=== PATIENT | female | born 1945 | race African-American/Black ===

== ENCOUNTER 2019-10-10 05:32 | Inpatient (IN) | payer MEDICARE, MEDICAID ==
[~2019-10-10] VITALS: Ht 160 cm; Wt 146.5 kg
[2019-10-10] MEDS ORDERED: Acetaminophen 650 MG SUPP RECTAL ONE (05:45)
--- NOTE | 2019-10-10 05:49 | Emergency Room Report ---
History of Present Illness General Chief Complaint: Fever Source: Medical Record, EMS (Dylon Drake MD) Present Illness HPI This is a 74-year-old female who is morbidly obese with history of UTI, atrial fibrillation on Coumadin who presents with chief plaint of fever and altered mental status. Onset for couple of days. Normally she is alert oriented x3 able to take care of herself per EMS, nursing staff that she is very lethargic and not responsive. Also with a fever. No nausea vomiting or diarrhea. Nothing made it better. Nothing made it worse. Unable to get any history from patient because of her condition. 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 (Dylon Drake MD) Patient History Past Medical History: see triage record, old chart reviewed Past Surgical History: other Pertinent Family History: none Social History: Denies: smoking Now: No Immunizations: UTD Reviewed Nursing Documentation: PMH: Agreed; PSxH: Agreed (Dylon Drake MD) Nursing Documentation-PMH Hx Hypertension: Yes Hx Diabetes: Yes (Dylon Drake MD) Review of Systems Constitutional: Reports: fever, malaise, weakness All Other Systems: limited - Secondary to condition (Dylon Drake MD) Physical Exam Vital Signs Date Time Temp Pulse Resp B/P (MAP) Pulse Ox O2 Delivery O2 Flow Rate FiO2 10/10/19 05:31 100.4 90 18 120/91 (101) 96 Room Air Vitals with fever Sp02 EP Interpretation: reviewed, normal General Appearance: moderate distress, lethargic, obese Head: normocephalic, atraumatic Eyes: bilateral eye PERRL, bilateral eye EOMI ENT: hearing grossly normal, normal pharynx Neck: full range of motion, supple, no meningismus Respiratory: chest non-tender, lungs clear, normal breath sounds Cardiovascular #1: regular rate, rhythm, no murmur Gastrointestinal: normal bowel sounds, non tender, no mass, no organomegaly, no bruit, non-distended Musculoskeletal: back normal, normal range of motion Psychiatric: other Skin: no rash (Dylon Drake MD) Medical Decision Making Diagnostic Impression: Primary Impression: Sepsis Additional Impressions: Acute metabolic encephalopathy Suspected 2019 novel coronavirus infection Leukocytosis Pyelonephritis Anemia Coagulopathy Atrial fibrillation with rapid ventricular response Renal failure NSTEMI (non-ST elevated myocardial infarction) Lactic acidosis ER Course Patient presents with fever and altered mental status. According to nursing staff, she had a negative cover test in August. Because she is a care home patient suspect to have covered infection. She can also have other infection. Labs, EKG, x-rays pending. I will sign this patient out to the oncoming doctor for for final disposition and admission. (Dylon Drake MD) ER Course This patient was turned over to me by Dr. Drake. Please see his initial history and physical. Briefly, this is an morbidly obese female that resides in a long-term facility with multiple chronic medical problems to include recurrent urinary tract infections/sepsis, diabetes, atrial fibrillation, coronary artery disease and congestive heart failure, hypothyroidism and rheumatoid arthritis, coagulopathy and on Coumadin. The patient had presented with altered mental status and fever. While obtaining a catheterized urinalysis it was identified that the patient's urine appeared consistent with infection. Patient was given broad-spectrum antibiotics and IV fluids. The IV fluids were given gently for concern of known history of congestive heart failure and also the patient presenting during the COVID-19 pandemic and the current thought that aggressive IV fluid resuscitation could rapidly worsen in the setting of COVID 19 infection. The patient long-term facility that she presents from has had an outbreak. COVID-19 testing is pending at this time. The patient did have atrial fibrillation with a rapid ventricular response, however, the patient's rate was variable and given the fever and sepsis, I felt that this was appropriate response and therefore I did not treat the atrial fibrillation and rather gave this patient fluids, acetaminophen and broad-spectrum antibiotics to treat the underlying etiology for the RVR. Also, I did not want to drop this patient's blood pressure. The patient's oxygen saturation remained normal during her ED course. Blood pressure also remained stable. The patient's troponin was significantly elevated. This could be a demand ischemia versus NSTEMI versus secondary to renal failure. Regardless, the patient is on Coumadin and is anticoagulated, so I did not add aspirin in the emergency department and I will allow cardiology to manage this patient. The patient will be admitted to the ICU stepdown. This patient is critically ill. This patient required complex medical decision- making, aggressive intervention, extensive laboratory workup and monitoring. Critical care time: 40 minutes. This patient was evaluated in the context of the global COVID-19 pandemic, which necessitated consideration that the patient might be at risk for infection with the [id number] virus that causes COVID-19. Institutional protocols and algorithms that pertain to the evaluation of patients at risk for COVID-19 and the state of rapid change based on information released by multiple regulatory bodies including the CDC and federal and state organizations. These policies and algorithms were followed during the patient' s care in the ED. Laboratory Tests Test 10/10/19 05:50 10/10/19 06:05 10/10/19 07:40 White Blood Count 23.0 K/UL (4.8-10.8) *H Red Blood Count 3.84 M/UL (4.20-5.40) L Hemoglobin 10.5 G/DL (12.0-16.0) L Hematocrit 31.4 % (37.0-47.0) L Mean Corpuscular Volume 82 FL (80-99) Mean Corpuscular Hemoglobin 27.4 PG (27.0-31.0) Mean Corpuscular Hemoglobin Concent 33.6 G/DL (32.0-36.0) Red Cell Distribution Width 13.3 % (11.6-14.8) Platelet Count 214 K/UL (150-450) Mean Platelet Volume 7.8 FL (6.5-10.1) Neutrophils (%) (Auto) % (45.0-75.0) Lymphocytes (%) (Auto) % (20.0-45.0) Monocytes (%) (Auto) % (1.0-10.0) Eosinophils (%) (Auto) % (0.0-3.0) Basophils (%) (Auto) % (0.0-2.0) Differential Total Cells Counted 100 Neutrophils % (Manual) 91 % (45-75) H Lymphocytes % (Manual) 2 % (20-45) L Monocytes % (Manual) 3 % (1-10) Eosinophils % (Manual) 0 % (0-3) Basophils % (Manual) 0 % (0-2) Band Neutrophils 4 % (0-8) Platelet Estimate Adequate Platelet Morphology Normal Hypochromasia 1+ Prothrombin Time 18.7 SEC (9.30-11.50) H Prothrombin Time INR 1.8 (0.9-1.1) H Activated Partial Thromboplast Time 40 SEC (23-33) H D-Dimer 3.81 mg/L FEU (0.00-0.49) H Sodium Level 137 MMOL/L (136-145) Potassium Level 3.0 MMOL/L (3.5-5.1) L Chloride Level 100 MMOL/L (98-107) Carbon Dioxide Level 26 MMOL/L (21-32) Anion Gap 11 mmol/L (5-15) Blood Urea Nitrogen 42 mg/dL (7-18) H Creatinine 3.0 MG/DL (0.55-1.30) H Estimated Glomerular Filtration Rate 18.5 mL/min (>60) Glucose Level 194 MG/DL (74-106) H Lactic Acid Level 3.20 mmol/L (0.4-2.0) H 3.60 mmol/L (0.66-2.22) H Calcium Level 8.9 MG/DL (8.5-10.1) Ferritin 85 NG/ML (8-388) Total Bilirubin 0.6 MG/DL (0.2-1.0) Aspartate Amino Transferase (AST) 39 U/L (15-37) H Alanine Aminotransferase (ALT) 14 U/L (12-78) Alkaline Phosphatase 115 U/L (46-116) Troponin I 4.435 ng/mL (0.000-0.056) C-Reactive Protein, Quantitative 17.4 mg/dL (0.00-0.90) H Total Protein 7.3 G/DL (6.4-8.2) Albumin 2.8 G/DL (3.4-5.0) L Globulin 4.5 g/dL Albumin/Globulin Ratio 0.6 (1.0-2.7) L Thyroid Stimulating Hormone (TSH) 0.980 uiU/mL (0.358-3.740) Free Thyroxine 1.43 NG/DL (0.76-1.46) Free Triiodothyronine 2.1 pg/mL (2.3-4.2) L Urine Color Pale yellow Urine Appearance Cloudy Urine pH 5 (4.5-8.0) Urine Specific [place] 1.015 (1.005-1.035) Urine Protein 3+ (NEGATIVE) H Urine Glucose (UA) Negative (NEGATIVE) Urine Ketones Negative (NEGATIVE) Urine Blood 5+ (NEGATIVE) H Urine Nitrite Negative (NEGATIVE) Urine Bilirubin Negative (NEGATIVE) Urine Urobilinogen Normal MG/DL (0.0-1.0) Urine Leukocyte Esterase 3+ (NEGATIVE) H Urine RBC 10-15 /HPF (0 - 2) H Urine WBC Tntc /HPF (0 - 2) H Urine Squamous Epithelial Cells Few /LPF (NONE/OCC) Urine Bacteria Few /HPF (NONE) ([facility]) EKG Diagnostic Results Rate: tachycardiac Rhythm: other - afib ST Segments: other - NSST changes (Dylon Drake MD) Rate: tachycardiac Rhythm: other - A.fib ST Segments: no acute changes Other Impression A.fib w/ RVR ([facility]) Rhythm Strip Diag. Results EP Interpretation: yes Rate: 110 Rhythm: no PVC's, no ectopy, other - afib (Dylon Drake MD) EP Interpretation: yes Rate: 120's Rhythm: other - A.fib w/RVR ([facility]) Chest X-Ray Diagnostic Results Chest X-Ray Diagnostic Results : Chest X-Ray Ordered: Yes # of Views/Limited/Complete: 1 View Indication: Chest Pain EP Interpretation: Yes Interpretation: no consolidation, no effusion, no pneumothorax Impression: No acute disease Electronically Signed by: Dylon Drake MD (Dylon Drake MD) Chest X-Ray Diagnostic Results : Chest X-Ray Ordered: Yes # of Views/Limited/Complete: 1 View Indication: Other EP Interpretation: Yes Interpretation: other - Cardiomegaly, ? RLL opacity vs poor inspiration/ technique ([facility]) Last Vital Signs Date Time Temp Pulse Resp B/P (MAP) Pulse Ox O2 Delivery O2 Flow Rate FiO2 10/10/19 05:31 100.4 90 18 120/91 (101) 96 Room Air Status: improved (Dylon Drake MD) Disposition: ADMITTED INPATIENT Condition: Critical Dylon Drake MD Oct 10, 2019 05:48 Swati Beaver DO Oct 10, 2019 07:03
[2019-10-10] MEDS ORDERED: FUROSEMIDE40 MG ORAL (05:50)
[2019-10-10] MEDS ORDERED: GABAPENTIN100 MG ORAL (05:50)
[2019-10-10] MEDS ORDERED: COUMADIN2.5 MG ORAL (05:50)
[2019-10-10] MEDS ORDERED: METFORMIN500 MG/5 M PO (05:50)
[2019-10-10] MEDS ORDERED: LATANOPROST 0.7.5 ML OP (05:50)
[2019-10-10] MEDS ORDERED: AMLODIPINE BESY10 MG ORAL (05:50)
[2019-10-10] MEDS ORDERED: BRIMONIDINE TART5 ML BOTH EYES (05:50)
[2019-10-10] MEDS ORDERED: GLIPIZIDE XL10 MG ORAL (05:50)
[2019-10-10] MEDS ORDERED: OMEPRAZOLE20 M3 ORAL (05:50)
[2019-10-10] MEDS ORDERED: CLONIDINE0.1 MG GT (05:50)
[2019-10-10] MEDS ORDERED: POTASSIUM CHLO10 ME2 PO (05:50)
[2019-10-10] MEDS ORDERED: SIMVASTATIN10 MG ORAL (05:50)
[2019-10-10 06:15] VITALS: BP 121/67
--- NOTE | 2019-10-10 06:15 | NUR ---
ED Nurse Note: Recieved pt BIBA from SNF with c/o fever and ALOC, pt is lying on gurney with eyes open, attempting to speak but mumbles non-comprehensible sounds only, pt is morbid obese, assisted to gurney, placed in isolation room for Covid precautions, pt was tested on 08/25 at facility with negative results, pt skin is very hot to touch, immediately retrieved rectal temp, 102.3, pt is A-Fib on tele, uncontrolled at rate of about 130's, will resume care as ordered.
[2019-10-10] MEDS ORDERED: Meropenem 1 GM in NS 55 ML IVPB ONE (06:30)
[2019-10-10 06:35] LABS: APPEARANCE,URINE CLOUDY; BILIRUBIN, URINE NEGATIVE (NEGATIVE); COLOR,URINE PALE YELLOW; GLUCOSE, URINE (UA) NEGATIVE (NEGATIVE); KETONES,URINE NEGATIVE (NEGATIVE); LEUKOCYTE ESTERASE ,URINE 3+ (NEGATIVE); NITRITE,URINE NEGATIVE (NEGATIVE); PH,URINE 5 (4.5-8.0); PROTEIN,URINE 3+ (NEGATIVE); UROBILINOGEN,URINE NORMAL MG/DL (0.0-1.0)
[2019-10-10 06:36] LABS: HEMATOCRIT 31.4 % (37.0-47.0); HEMOGLOBIN 10.5 G/DL (12.0-16.0); MEAN CORPUSCULAR VOLUME 82 FL (80-99); PLATELET COUNT 214 K/UL (150-450); RED BLOOD COUNT 3.84 M/UL (4.20-5.40); RED CELL DISTRIBUTION WIDTH 13.3 % (11.6-14.8)
[2019-10-10 06:43] LABS: ANION GAP 11 mmol/L (5-15); BLOOD UREA NITROGEN 42 mg/dL (7-18); CALCIUM 8.9 MG/DL (8.5-10.1); CARBON DIOXIDE 26 MMOL/L (21-32); CHLORIDE 100 MMOL/L (98-107); SODIUM 137 MMOL/L (136-145)
--- NOTE | 2019-10-10 06:45 | NUR ---
ED Nurse Note: All test done and sent to lab, remains on cardiac monitoring, IV site patent with fluids infusing, no s/s of adverse reaction noted from antiobiotics given, pt being admitted, swabs collected and sent and belongings done, will continue to closely monitor and give report for on-coming nurse.
[2019-10-10 06:46] LABS: INR 1.8 (0.9-1.1)
[2019-10-10 06:59] LABS: ALANINE AMINOTRANSFERASE 14 U/L (12-78); ALBUMIN 2.8 G/DL (3.4-5.0); ALBUMIN/GLOBULIN RATIO 0.6 (1.0-2.7); ALKALINE PHOSPHATASE 115 U/L (46-116); ASPARTATE AMINO TRANSFERASE 39 U/L (15-37); BILIRUBIN,TOTAL 0.6 MG/DL (0.2-1.0); FERRITIN 85 NG/ML (8-388)
--- NOTE | 2019-10-10 07:16 | NUR ---
HAND-OFF: Report given to RUTHANN FLORENTINO.
--- NOTE | 2019-10-10 07:21 | NUR ---
ED Nurse Note: Report received from RUTHANN Suarez. Pt in stable condition with no signs of acute distress noted. HR afib 118 on the monitor. Pt confused, A+Ox1 which is different from baseline per SNF. Pt receiving fluids. Lactic increased. Will send lactic reflex when fluids are finished. Respirations even and unlabored on room air.
--- NOTE | 2019-10-10 07:40 | NUR ---
ED Nurse Note: reflex lactic drawn and sent to lab
[2019-10-10 08:00] VITALS: BP 108/75
--- NOTE | 2019-10-10 09:24 | Diagnostic Imaging Report ---
Indication: Cough Technique: One view of the chest Comparison: none Findings: The heart is enlarged. The aorta is tortuous and calcified. There is mild interstitial congestion. No definite effusions, although small effusion on the left might be present Impression: Cardiomegaly. Mild interstitial congestion Cannot rule out small left pleural effusion
--- NOTE | 2019-10-10 10:09 | NUR ---
ED Nurse Note: report given to RUTHANN Varela in SDU
[2019-10-10 10:17] VITALS: BP 98/68
--- NOTE | 2019-10-10 10:50 | NUR ---
NURSE NOTES: Received pt a new admission from ED brought to SDU per andrea awake,disoriented to some degree,noted no resp distress ,on RA, with Anne cath draining yellow urine ,skin warm and dry wth IV site to RH intact ,SR up x2 HOB elevated,bed lock in lowest position,will continue with plans of care.Report given by Nichole Manuel RN.
--- NOTE | 2019-10-10 10:50 | NUR ---
ED Nurse Note: Pt transferred safely to SDU on the monitor with COVID PUI precutions. Belongings list verified @ bedside. Pt in stable condition.
[2019-10-10] MEDS ORDERED: Nitroglycerin Subl 0.4mg tab SL PRN (11:30)
[2019-10-10] MEDS ORDERED: Miralax 17gm pkt ORAL PRN (11:30)
[2019-10-10] MEDS ORDERED: Albuterol/Ipratropium 3ml neb HHN PRN (11:30)
[2019-10-10] MEDS: NovoLOG Insulin Flexpen SUBQ SCH ×3 (11:30→20:19)
--- NOTE | 2019-10-10 11:39 | NUR ---
NURSE NOTES: Dr Brownlee at bedside updated re pt's status,admission orders given.
[2019-10-10 12:00] VITALS: BP 98/51
--- NOTE | 2019-10-10 12:09 | Consultation ---
History of Present Illness General Date patient seen: Oct 10, 2019 Chief Complaint: Fever Present Illness HPI 74-year-old female with a history of DM, atrial fibrillation on Coumadin, morbid obesity, DVT presented to ER with chief plaint of fever and altered mental status for couple of days. Normally she is alert oriented x3 able to take care of herself. According to the nursing staff at the SNF, she was very lethargic and not responsive. No nausea vomiting or diarrhea. Pt is awake now and looks very comfortable and answers questions appropriately. She is c/o abdominal and flank pain. Allergies: Coded Allergies: CODEINE (Verified Allergy, Unknown, 10/10/19) Medication History Scheduled Amlodipine Besylate* (Amlodipine Besylate*), 10 MG ORAL DAILY, (Reported) Brimonidine Tartrate* (Alphagan*), 1 DROP BOTH EYES TID, (Reported) Furosemide* (Lasix*), 40 MG ORAL TWICE A DAY, (Reported) Gabapentin* (Gabapentin*), 100 MG ORAL THREE TIMES A DAY, (Reported) Glipizide (Glipizide), 5 MG ORAL DAILY, (Reported) Omeprazole (Omeprazole), 20 MG ORAL DAILY, (Reported) Simvastatin (Zocor), 10 MG ORAL BEDTIME, (Reported) Warfarin Sod* (Coumadin*), 2.5 MG ORAL DAILY, (Reported) Miscellaneous Medications Clonidine HCl (Clonidine HCl), 0.1 MG GT, (Reported) Latanoprost/Pf (Latanoprost 0.005% Eye Drop), 7.5 ML OP, (Reported) Metformin HCl (Metformin HCl), 500 MG PO, (Reported) Potassium Chloride (Potassium Chloride), 10 MEQ PO, (Reported) Patient History Healthcare decision maker Resuscitation status Advanced Directive on File Past Medical/Surgical History Past Medical/Surgical History: (1) Chronic atrial fibrillation (2) Diabetes mellitus (3) Morbid obesity (4) Limited mobility (5) History of DVT (deep vein thrombosis) Review of Systems All Other Systems: negative except mentioned in HPI Physical Exam General Appearance: WD/WN, no apparent distress Lines, tubes and drains: peripheral HEENT: normocephalic, atraumatic Neck: non-tender, normal alignment Respiratory/Chest: chest wall non-tender, lungs clear Cardiovascular/Chest: normal peripheral pulses, normal rate Abdomen: normal bowel sounds, non tender Genitourinary/Rectal: normal genital exam, normal rectal exam Extremities: normal range of motion, non-tender Skin Exam: normal pigmentation Last 24 Hour Vital Signs Date Time Temp Pulse Resp B/P (MAP) Pulse Ox O2 Delivery O2 Flow Rate FiO2 10/10/19 10:17 101 20 98/68 98 Room Air 10/10/19 08:00 102.0 117 22 108/75 98 Room Air 10/10/19 06:44 102.3 10/10/19 06:15 102.3 131 22 121/67 97 Room Air 10/10/19 06:15 90 18 Room Air 10/10/19 05:31 100.4 90 18 120/91 (101) 96 Room Air Laboratory Tests Test 10/10/19 05:50 10/10/19 06:05 10/10/19 07:40 White Blood Count 23.0 K/UL (4.8-10.8) *H Red Blood Count 3.84 M/UL (4.20-5.40) L Hemoglobin 10.5 G/DL (12.0-16.0) L Hematocrit 31.4 % (37.0-47.0) L Mean Corpuscular Volume 82 FL (80-99) Mean Corpuscular Hemoglobin 27.4 PG (27.0-31.0) Mean Corpuscular Hemoglobin Concent 33.6 G/DL (32.0-36.0) Red Cell Distribution Width 13.3 % (11.6-14.8) Platelet Count 214 K/UL (150-450) Mean Platelet Volume 7.8 FL (6.5-10.1) Neutrophils (%) (Auto) % (45.0-75.0) Lymphocytes (%) (Auto) % (20.0-45.0) Monocytes (%) (Auto) % (1.0-10.0) Eosinophils (%) (Auto) % (0.0-3.0) Basophils (%) (Auto) % (0.0-2.0) Differential Total Cells Counted 100 Neutrophils % (Manual) 91 % (45-75) H Lymphocytes % (Manual) 2 % (20-45) L Monocytes % (Manual) 3 % (1-10) Eosinophils % (Manual) 0 % (0-3) Basophils % (Manual) 0 % (0-2) Band Neutrophils 4 % (0-8) Platelet Estimate Adequate Platelet Morphology Normal Hypochromasia 1+ Prothrombin Time 18.7 SEC (9.30-11.50) H Prothromb Time International Ratio 1.8 (0.9-1.1) H Activated Partial Thromboplast Time 40 SEC (23-33) H D-Dimer 3.81 mg/L FEU (0.00-0.49) H Sodium Level 137 MMOL/L (136-145) Potassium Level 3.0 MMOL/L (3.5-5.1) L Chloride Level 100 MMOL/L (98-107) Carbon Dioxide Level 26 MMOL/L (21-32) Anion Gap 11 mmol/L (5-15) Blood Urea Nitrogen 42 mg/dL (7-18) H Creatinine 3.0 MG/DL (0.55-1.30) H Estimat Glomerular Filtration Rate 18.5 mL/min (>60) Glucose Level 194 MG/DL (74-106) H Lactic Acid Level 3.20 mmol/L (0.4-2.0) H 3.60 mmol/L (0.66-2.22) H Uric Acid Pending Calcium Level 8.9 MG/DL (8.5-10.1) Ferritin 85 NG/ML (8-388) Total Bilirubin 0.6 MG/DL (0.2-1.0) Aspartate Amino Transf (AST/SGOT) 39 U/L (15-37) H Alanine Aminotransferase (ALT/SGPT) 14 U/L (12-78) Alkaline Phosphatase 115 U/L (46-116) Total Creatine Kinase Pending Troponin I 4.435 ng/mL (0.000-0.056) C-Reactive Protein, Quantitative 17.4 mg/dL (0.00-0.90) H Total Protein 7.3 G/DL (6.4-8.2) Albumin 2.8 G/DL (3.4-5.0) L Globulin 4.5 g/dL Albumin/Globulin Ratio 0.6 (1.0-2.7) L Thyroid Stimulating Hormone (TSH) 0.980 uiU/mL (0.358-3.740) Free Thyroxine 1.43 NG/DL (0.76-1.46) Free Triiodothyronine 2.1 pg/mL (2.3-4.2) L Urine Color Pale yellow Urine Appearance Cloudy Urine pH 5 (4.5-8.0) Urine Specific [place] 1.015 (1.005-1.035) Urine Protein 3+ (NEGATIVE) H Urine Glucose (UA) Negative (NEGATIVE) Urine Ketones Negative (NEGATIVE) Urine Blood 5+ (NEGATIVE) H Urine Nitrite Negative (NEGATIVE) Urine Bilirubin Negative (NEGATIVE) Urine Urobilinogen Normal MG/DL (0.0-1.0) Urine Leukocyte Esterase 3+ (NEGATIVE) H Urine RBC 10-15 /HPF (0 - 2) H Urine WBC Tntc /HPF (0 - 2) H Urine Squamous Epithelial Cells Few /LPF (NONE/OCC) Urine Bacteria Few /HPF (NONE) Microbiology Date/Time Source Procedure Growth Status 10/10/19 06:10 Rectum Received Height (Feet): 5 Height (Inches): 10.00 Weight (Pounds): 320 Medications Current Medications Medications (Trade) Dose Ordered Sig/Adria Route PRN Reason Start Time Stop Time Status Last Admin Dose Admin Acetaminophen (Tylenol) 650 mg Q4H PRN ORAL fever 10/10/19 11:30 11/09/19 11:29 UNV Albuterol/ Ipratropium (Albuterol/ Ipratropium) 3 ml EVERY 4 HOURS PRN HHN Shortness of Breath 10/10/19 11:30 10/15/19 11:29 UNV Amlodipine Besylate (Norvasc) 10 mg DAILY ORAL 10/11/19 09:00 11/10/19 08:59 Cefepime HCl 2 gm/ Dextrose 110 ml @ 220 mls/hr EVERY 12 HOURS IV 10/10/19 21:00 10/17/19 20:59 UNV Clonidine HCl (Catapres Tab) 0.1 mg EVERY 12 HOURS ORAL 10/10/19 21:00 01/08/20 20:59 Dextrose (Dextrose 50%) 25 ml Q30M PRN IV Hypoglycemia 10/10/19 11:30 01/08/20 11:29 UNV Dextrose (Dextrose 50%) 50 ml Q30M PRN IV Hypoglycemia 10/10/19 11:30 01/08/20 11:29 UNV Gabapentin (Neurontin) 100 mg THREE TIMES A DAY ORAL 10/10/19 13:00 11/09/19 12:59 Heparin Sodium (Porcine) (Heparin 5000 units/ml) 5,000 units EVERY 12 HOURS SUBQ 10/10/19 21:00 11/24/19 20:59 UNV Insulin Aspart (NovoLOG) BEFORE MEALS AND HS SUBQ 10/10/19 11:30 01/08/20 11:29 UNV Nitroglycerin (Ntg) 0.4 mg Every 5 Minutes PRN SL Prn Chest Pain 10/10/19 11:30 11/09/19 11:29 UNV Ondansetron HCl (Zofran) 4 mg Q6H PRN IVP Nausea & Vomiting 10/10/19 11:30 11/09/19 11:29 UNV Polyethylene Glycol (Miralax) 17 gm DAILYPRN PRN ORAL Constipation 10/10/19 11:30 11/09/19 11:29 UNV Temazepam (Restoril) 15 mg HSPRN PRN ORAL Insomnia 10/10/19 11:30 10/17/19 11:29 UNV Vancomycin HCl 1 gm/Dextrose 275 ml @ 183.3 mls/ hr Q24H IV 10/11/19 00:30 10/16/19 00:29 UNV Assessment/Plan Problem List: (1) Sepsis ICD Codes: A41.9 - Sepsis, unspecified organism SNOMED: 25725122, 586211383 Qualifiers: (2) Renal failure ICD Codes: N19 - Unspecified kidney failure SNOMED: 87287068 (3) Pyelonephritis ICD Codes: N12 - Tubulo-interstitial nephritis, not specified as acute or chronic SNOMED: 15352643, 988086346 (4) Suspected 2019 novel coronavirus infection ICD Codes: Z20.828 - Contact with and (suspected) exposure to other viral communicable diseases SNOMED: 838841699 (5) Chronic atrial fibrillation ICD Codes: I48.20 - Chronic atrial fibrillation, unspecified SNOMED: 311530995 (6) Limited mobility ICD Codes: Z74.09 - Other reduced mobility SNOMED: 7916639 (7) Anemia ICD Codes: D64.9 - Anemia, unspecified SNOMED: 149891081 (8) Atrial fibrillation with rapid ventricular response ICD Codes: I48.91 - Unspecified atrial fibrillation SNOMED: 463183576346342, 516042384 (9) Elevated troponin I level ICD Codes: R79.89 - Other specified abnormal findings of blood chemistry SNOMED: 247469597 (10) Diabetes mellitus ICD Codes: E11.9 - Type 2 diabetes mellitus without complications SNOMED: 07824101 (11) Morbid obesity ICD Codes: E66.01 - Morbid (severe) obesity due to excess calories SNOMED: 533203231 Assessment/Plan: salmeron culture iv abx renal studies sliding scale diabetic diet renal studies dvt prophylaxis. Bandar Brownlee MD Oct 10, 2019 12:09
--- NOTE | 2019-10-10 12:51 | Consultation ---
Consult Note Consult Note I am asked to evaluate the patient at the request of PMD for renal failure. This is the patient's first hospitalization here at [facility]. Patient came to emergency room with a complaint of fever. Patient is non-historian. This is a 74-year-old female who is morbidly obese with history of UTI, atrial fibrillation on Coumadin who presents with chief plaint of fever and altered mental status. Onset for couple of days. Normally she is alert oriented x3 able to take care of herself per EMS, nursing staff that she is very lethargic and not responsive. Also with a fever. No nausea vomiting or diarrhea. Nothing made it better. Nothing made it worse. Unable to get any history from patient because of her condition. Allergies: CODEINE (Verified Allergy, Unknown, 10/10/19) COVID-19 Screening Contact w/high risk pt: No Recent Travel to affected area: No Experienced COVID-19 symptoms?: Yes COVID-19 symptoms experienced: Fever (T>100.4F or >38C) COVID-19 Testing performed BREAKER UP: No Hx Hypertension: Yes Hx Diabetes: Yes Assessment/Plan Renal failure, most likely acute on chronic. Sepsis, leukocytosis, fever, suspected 2019 novel coronavirus infection. Encephalopathy most likely toxic metabolic UTI/pyelonephritis Anemia Atrial fibrillation chronic, with fast ventricular rate. Diabetes mellitus Morbid obesity/limited mobility History of DVT Elevated troponin I Lactic acidosis Aspirin, Coreg ,nitrate for elevated troponin Antibiotics Monitor urine output and renal parameters Keep the blood pressure and blood sugar in check Coumadin for DVT and atrial fibrillation IV Protonix I spent an additional 36 minutes on review of medical records including prior hospital records,consult notes, progress notes, procedures ,imaging labs, hemodynamics, and other clinical documentation. Over 35 min Pantera Wallace MD Oct 10, 2019 12:51
[2019-10-10 12:55] LABS: CREATINE KINASE 407 U/L (26-308)
--- NOTE | 2019-10-10 13:40 | NUR ---
NURSE NOTES: Pt resting in bed stable no complaints presented.
[2019-10-10] MEDS ORDERED: Vancomycin 1.5gm/NS Premix q24h IVPB SCH (14:00)
--- NOTE | 2019-10-10 15:55 | History & Physical ---
History and Physical History & Physicial Dictated for Int Med-DR Vega no. [id number]. Full code. Step down unit Johny Blankenship MD Oct 10, 2019 15:55
[2019-10-10 16:00] VITALS: BP 100/69
[2019-10-10] MEDS: Pantoprazole Inj IVP SCH ×2 (16:10→20:14)
[2019-10-10] MEDS ORDERED: Warfarin Sodium 2.5mg ORAL SCH (17:00)
--- NOTE | 2019-10-10 17:00 | NUR ---
NURSE NOTES: Dr Mays at bedside,updated re pt's condition.
[2019-10-10] MEDS ORDERED: Cefepime HCl 1 GM in D5W 110 ML IVPB SCH (18:00)
[2019-10-10] MEDS ORDERED: Docusate 100mg cap ORAL SCH (18:00)
[2019-10-10] MEDS ORDERED: Cefepime HCl 1 GM in D5W 55 ML IVPB SCH (18:00)
--- NOTE | 2019-10-10 18:00 | Consultation ---
History of Present Illness General Date patient seen: Oct 10, 2019 Chief Complaint: Fever Present Illness HPI 74 y/o F with hx of morbid obesity, HTN, Dm2, UTI, Afib on coumadin, [place] resident ([facility]) presented to ED on 10/09 with fever, altered mental status Denied nausea, vomiting, diarrhea Allergies: Coded Allergies: CODEINE (Verified Allergy, Unknown, 10/10/19) Medication History Scheduled Amlodipine Besylate* (Amlodipine Besylate*), 10 MG ORAL DAILY, (Reported) Brimonidine Tartrate* (Alphagan*), 1 DROP BOTH EYES TID, (Reported) Furosemide* (Lasix*), 40 MG ORAL TWICE A DAY, (Reported) Gabapentin* (Gabapentin*), 100 MG ORAL THREE TIMES A DAY, (Reported) Glipizide (Glipizide), 5 MG ORAL DAILY, (Reported) Omeprazole (Omeprazole), 20 MG ORAL DAILY, (Reported) Simvastatin (Zocor), 10 MG ORAL BEDTIME, (Reported) Warfarin Sod* (Coumadin*), 2.5 MG ORAL DAILY, (Reported) Miscellaneous Medications Clonidine HCl (Clonidine HCl), 0.1 MG GT, (Reported) Latanoprost/Pf (Latanoprost 0.005% Eye Drop), 7.5 ML OP, (Reported) Metformin HCl (Metformin HCl), 500 MG PO, (Reported) Potassium Chloride (Potassium Chloride), 10 MEQ PO, (Reported) Patient History Healthcare decision maker Resuscitation status Advanced Directive on File Patient History Narrative Pmhx: as above Shx: reviewed Fhx: non contributory Review of Systems All Other Systems: negative except mentioned in HPI Physical Exam Physical Exam Narrative General Appearance: WD/WN, no apparent distress Lines, tubes and drains: peripheral HEENT: normocephalic, atraumatic Neck: non-tender, normal alignment Respiratory/Chest: chest wall non-tender, lungs clear Cardiovascular/Chest: normal peripheral pulses, normal rate Abdomen: normal bowel sounds, non tender Extremities: normal range of motion, non-tender Skin Exam: normal pigmentation Last 24 Hour Vital Signs Date Time Temp Pulse Resp B/P (MAP) Pulse Ox O2 Delivery O2 Flow Rate FiO2 10/10/19 16:11 96 98/51 10/10/19 16:00 94 10/10/19 13:11 Room Air 10/10/19 12:00 99.3 96 22 98/51 (67) 96 10/10/19 11:27 90 10/10/19 11:06 111 10/10/19 10:50 101.9 99 20 101/61 99 Room Air 10/10/19 10:17 101 20 98/68 98 Room Air 10/10/19 08:00 102.0 117 22 108/75 98 Room Air 10/10/19 06:44 102.3 10/10/19 06:15 102.3 131 22 121/67 97 Room Air 10/10/19 06:15 90 18 Room Air 10/10/19 05:31 100.4 90 18 120/91 (101) 96 Room Air Laboratory Tests Test 10/10/19 05:50 10/10/19 06:05 10/10/19 07:40 10/10/19 13:00 White Blood Count 23.0 K/UL (4.8-10.8) *H Red Blood Count 3.84 M/UL (4.20-5.40) L Hemoglobin 10.5 G/DL (12.0-16.0) L Hematocrit 31.4 % (37.0-47.0) L Mean Corpuscular Volume 82 FL (80-99) Mean Corpuscular Hemoglobin 27.4 PG (27.0-31.0) Mean Corpuscular Hemoglobin Concent 33.6 G/DL (32.0-36.0) Red Cell Distribution Width 13.3 % (11.6-14.8) Platelet Count 214 K/UL (150-450) Mean Platelet Volume 7.8 FL (6.5-10.1) Neutrophils (%) (Auto) % (45.0-75.0) Lymphocytes (%) (Auto) % (20.0-45.0) Monocytes (%) (Auto) % (1.0-10.0) Eosinophils (%) (Auto) % (0.0-3.0) Basophils (%) (Auto) % (0.0-2.0) Differential Total Cells Counted 100 Neutrophils % (Manual) 91 % (45-75) H Lymphocytes % (Manual) 2 % (20-45) L Monocytes % (Manual) 3 % (1-10) Eosinophils % (Manual) 0 % (0-3) Basophils % (Manual) 0 % (0-2) Band Neutrophils 4 % (0-8) Platelet Estimate Adequate Platelet Morphology Normal Hypochromasia 1+ Prothrombin Time 18.7 SEC (9.30-11.50) H Prothromb Time International Ratio 1.8 (0.9-1.1) H Activated Partial Thromboplast Time 40 SEC (23-33) H D-Dimer 3.81 mg/L FEU (0.00-0.49) H Sodium Level 137 MMOL/L (136-145) Potassium Level 3.0 MMOL/L (3.5-5.1) L Chloride Level 100 MMOL/L (98-107) Carbon Dioxide Level 26 MMOL/L (21-32) Anion Gap 11 mmol/L (5-15) Blood Urea Nitrogen 42 mg/dL (7-18) H Creatinine 3.0 MG/DL (0.55-1.30) H Estimat Glomerular Filtration Rate 18.5 mL/min (>60) Glucose Level 194 MG/DL (74-106) H Lactic Acid Level 3.20 mmol/L (0.4-2.0) H 3.60 mmol/L (0.66-2.22) H Uric Acid 7.6 MG/DL (2.6-7.2) H Calcium Level 8.9 MG/DL (8.5-10.1) Ferritin 85 NG/ML (8-388) Total Bilirubin 0.6 MG/DL (0.2-1.0) Aspartate Amino Transf (AST/SGOT) 39 U/L (15-37) H Alanine Aminotransferase (ALT/SGPT) 14 U/L (12-78) Alkaline Phosphatase 115 U/L (46-116) Total Creatine Kinase 407 U/L (26-308) H Troponin I 4.435 ng/mL (0.000-0.056) C-Reactive Protein, Quantitative 17.4 mg/dL (0.00-0.90) H Total Protein 7.3 G/DL (6.4-8.2) Albumin 2.8 G/DL (3.4-5.0) L Globulin 4.5 g/dL Albumin/Globulin Ratio 0.6 (1.0-2.7) L Thyroid Stimulating Hormone (TSH) 0.980 uiU/mL (0.358-3.740) Free Thyroxine 1.43 NG/DL (0.76-1.46) Free Triiodothyronine 2.1 pg/mL (2.3-4.2) L Urine Color Pale yellow Urine Appearance Cloudy Urine pH 5 (4.5-8.0) Urine Specific Peever 1.015 (1.005-1.035) Urine Protein 3+ (NEGATIVE) H Urine Glucose (UA) Negative (NEGATIVE) Urine Ketones Negative (NEGATIVE) Urine Blood 5+ (NEGATIVE) H Urine Nitrite Negative (NEGATIVE) Urine Bilirubin Negative (NEGATIVE) Urine Urobilinogen Normal MG/DL (0.0-1.0) Urine Leukocyte Esterase 3+ (NEGATIVE) H Urine RBC 10-15 /HPF (0 - 2) H Urine WBC Tntc /HPF (0 - 2) H Urine Squamous Epithelial Cells Few /LPF (NONE/OCC) Urine Bacteria Few /HPF (NONE) Urine Eosinophils Pending Microbiology Date/Time Source Procedure Growth Status 10/10/19 06:10 Rectum Received Height (Feet): 5 Height (Inches): 3.00 Weight (Pounds): 325 Medications Current Medications Medications (Trade) Dose Ordered Sig/Adria Route PRN Reason Start Time Stop Time Status Last Admin Dose Admin Acetaminophen (Tylenol) 650 mg Q4H PRN ORAL fever 10/10/19 11:30 11/09/19 11:29 Albuterol/ Ipratropium (Albuterol/ Ipratropium) 3 ml Q4H PRN HHN Shortness of Breath 10/10/19 11:30 10/15/19 11:29 Aspirin (ASA) 325 mg DAILY ORAL 10/10/19 13:15 11/24/19 13:14 10/10/19 16:10 Carvedilol (Coreg) 3.125 mg EVERY 12 HOURS ORAL 10/10/19 21:00 11/09/19 20:59 Cefepime HCl 1 gm/ Dextrose 110 ml @ 220 mls/hr Q24H IVPB 10/10/19 18:00 10/17/19 17:59 Clonidine HCl (Catapres Tab) 0.1 mg Q4H PRN ORAL Blood pressure over 160 systol 10/10/19 13:00 01/08/20 12:59 Dextrose (Dextrose 50%) 25 ml Q30M PRN IV Hypoglycemia 10/10/19 11:30 01/08/20 11:29 Dextrose (Dextrose 50%) 50 ml Q30M PRN IV Hypoglycemia 10/10/19 11:30 01/08/20 11:29 Docusate Sodium (Colace) 100 mg THREE TIMES A DAY ORAL 10/10/19 18:00 11/09/19 17:59 Gabapentin (Neurontin) 100 mg THREE TIMES A DAY ORAL 10/10/19 13:00 11/09/19 12:59 10/10/19 16:10 Insulin Aspart (NovoLOG) BEFORE MEALS AND HS SUBQ 10/10/19 11:30 01/08/20 11:29 10/10/19 17:02 Nitroglycerin (Ntg) 0.4 mg Q5M PRN SL Prn Chest Pain 10/10/19 11:30 11/09/19 11:29 Ondansetron HCl (Zofran) 4 mg Q6H PRN IVP Nausea & Vomiting 10/10/19 11:30 11/09/19 11:29 Pantoprazole (Protonix) 40 mg EVERY 12 HOURS IVP 10/10/19 13:00 11/09/19 12:59 10/10/19 16:10 Polyethylene Glycol (Miralax) 17 gm DAILYPRN PRN ORAL Constipation 10/10/19 11:30 11/09/19 11:29 Temazepam (Restoril) 15 mg HSPRN PRN ORAL Insomnia 10/10/19 11:30 10/17/19 11:29 Vancomycin HCl (Vanco pharmacy to dose) 1 ea DAILY PRN MISC SEPSIS 10/10/19 12:00 11/09/19 11:59 Warfarin Sodium (Coumadin per pharmacy) 1 ea DAILY PRN MISC Per rx protocol 10/10/19 13:00 11/09/19 12:59 Warfarin Sodium (Coumadin) 2.5 mg ONCE ORAL 10/10/19 17:00 10/10/19 18:00 Assessment/Plan Assessment/Plan: Abx: IV Vancomycin 10/09- Cefepime 10/09- Meropenem x1 10/09 Assessment: Sepsis Probable PNA- r/o COVID - at [facility] -CXR: Mild interstitial congestion. Cannot rule out small left pleural effusion Probable UTI -u/a wbc tnct, nit neg, leuk +3; ucx p Fever Leukocytosis Acute encephalopathy morbid obesity HTN Dm2 hx of UTI Afib on coumadin [place] resident ([facility]) Plan: -Continue empiric IV Vancomcyin and Cefepime #1 pending cultures -f/u cx -monitor CBC/CMP, temperatures -COVID19 isolation and testing Thank you for consulting [facility]. Will continue to follow along with you. Discussed with Hannah Soliz M.D. Oct 10, 2019 18:00
--- NOTE | 2019-10-10 18:00 | NUR ---
NURSE NOTES: Dr Mattson at bedside,updated re pt's status.
--- NOTE | 2019-10-10 18:53 | Cardiology Progress Note ---
Assessment/Plan Assessment/Plan [id number] mi toxic encephalopathy arf dm uti sepsis record 09/2018 neg stress echo , echo normal lv function echo prelim here normal lv function watch trop curve repeat ekg no old ekg for comparison iv abx ivf venous duplex Objective Last 24 Hour Vital Signs Date Time Temp Pulse Resp B/P (MAP) Pulse Ox O2 Delivery O2 Flow Rate FiO2 10/10/19 16:11 96 98/51 10/10/19 16:00 94 10/10/19 13:11 Room Air 10/10/19 12:00 99.3 96 22 98/51 (67) 96 10/10/19 11:27 90 10/10/19 11:06 111 10/10/19 10:50 101.9 99 20 101/61 99 Room Air 10/10/19 10:17 101 20 98/68 98 Room Air 10/10/19 08:00 102.0 117 22 108/75 98 Room Air 10/10/19 06:44 102.3 10/10/19 06:15 102.3 131 22 121/67 97 Room Air 10/10/19 06:15 90 18 Room Air 10/10/19 05:31 100.4 90 18 120/91 (101) 96 Room Air Laboratory Tests Test 10/10/19 05:50 10/10/19 06:05 10/10/19 07:40 10/10/19 13:00 White Blood Count 23.0 K/UL (4.8-10.8) *H Red Blood Count 3.84 M/UL (4.20-5.40) L Hemoglobin 10.5 G/DL (12.0-16.0) L Hematocrit 31.4 % (37.0-47.0) L Mean Corpuscular Volume 82 FL (80-99) Mean Corpuscular Hemoglobin 27.4 PG (27.0-31.0) Mean Corpuscular Hemoglobin Concent 33.6 G/DL (32.0-36.0) Red Cell Distribution Width 13.3 % (11.6-14.8) Platelet Count 214 K/UL (150-450) Mean Platelet Volume 7.8 FL (6.5-10.1) Neutrophils (%) (Auto) % (45.0-75.0) Lymphocytes (%) (Auto) % (20.0-45.0) Monocytes (%) (Auto) % (1.0-10.0) Eosinophils (%) (Auto) % (0.0-3.0) Basophils (%) (Auto) % (0.0-2.0) Differential Total Cells Counted 100 Neutrophils % (Manual) 91 % (45-75) H Lymphocytes % (Manual) 2 % (20-45) L Monocytes % (Manual) 3 % (1-10) Eosinophils % (Manual) 0 % (0-3) Basophils % (Manual) 0 % (0-2) Band Neutrophils 4 % (0-8) Platelet Estimate Adequate Platelet Morphology Normal Hypochromasia 1+ Prothrombin Time 18.7 SEC (9.30-11.50) H Prothromb Time International Ratio 1.8 (0.9-1.1) H Activated Partial Thromboplast Time 40 SEC (23-33) H D-Dimer 3.81 mg/L FEU (0.00-0.49) H Sodium Level 137 MMOL/L (136-145) Potassium Level 3.0 MMOL/L (3.5-5.1) L Chloride Level 100 MMOL/L (98-107) Carbon Dioxide Level 26 MMOL/L (21-32) Anion Gap 11 mmol/L (5-15) Blood Urea Nitrogen 42 mg/dL (7-18) H Creatinine 3.0 MG/DL (0.55-1.30) H Estimat Glomerular Filtration Rate 18.5 mL/min (>60) Glucose Level 194 MG/DL (74-106) H Lactic Acid Level 3.20 mmol/L (0.4-2.0) H 3.60 mmol/L (0.66-2.22) H Uric Acid 7.6 MG/DL (2.6-7.2) H Calcium Level 8.9 MG/DL (8.5-10.1) Ferritin 85 NG/ML (8-388) Total Bilirubin 0.6 MG/DL (0.2-1.0) Aspartate Amino Transf (AST/SGOT) 39 U/L (15-37) H Alanine Aminotransferase (ALT/SGPT) 14 U/L (12-78) Alkaline Phosphatase 115 U/L (46-116) Total Creatine Kinase 407 U/L (26-308) H Troponin I 4.435 ng/mL (0.000-0.056) C-Reactive Protein, Quantitative 17.4 mg/dL (0.00-0.90) H Total Protein 7.3 G/DL (6.4-8.2) Albumin 2.8 G/DL (3.4-5.0) L Globulin 4.5 g/dL Albumin/Globulin Ratio 0.6 (1.0-2.7) L Thyroid Stimulating Hormone (TSH) 0.980 uiU/mL (0.358-3.740) Free Thyroxine 1.43 NG/DL (0.76-1.46) Free Triiodothyronine 2.1 pg/mL (2.3-4.2) L Urine Color Pale yellow Urine Appearance Cloudy Urine pH 5 (4.5-8.0) Urine Specific Iva 1.015 (1.005-1.035) Urine Protein 3+ (NEGATIVE) H Urine Glucose (UA) Negative (NEGATIVE) Urine Ketones Negative (NEGATIVE) Urine Blood 5+ (NEGATIVE) H Urine Nitrite Negative (NEGATIVE) Urine Bilirubin Negative (NEGATIVE) Urine Urobilinogen Normal MG/DL (0.0-1.0) Urine Leukocyte Esterase 3+ (NEGATIVE) H Urine RBC 10-15 /HPF (0 - 2) H Urine WBC Tntc /HPF (0 - 2) H Urine Squamous Epithelial Cells Few /LPF (NONE/OCC) Urine Bacteria Few /HPF (NONE) Urine Eosinophils Pending Microbiology Date/Time Source Procedure Growth Status 10/10/19 06:10 Rectum Received Arun Barker MD Oct 10, 2019 18:53
[2019-10-10] MEDS ORDERED: Aspirin EC 81mg tab ORAL SCH (19:00)
--- NOTE | 2019-10-10 19:15 | NUR ---
NURSE NOTES: pt report received from ADRIANNE Ashraf RN. pt remains stable. pt is alert and oriented times 2, pt is on room air, able to sat at 98%. pt is on cardiac monitor technician showing NSR, no acute abnormalities cardiac spangler. pt bed is low locked armed call light within reach. will follow plan of care.
--- NOTE | 2019-10-10 19:20 | NUR ---
HAND-OFF: Report given to Dusty Akbar RN.
[2019-10-10 20:00] VITALS: BP 116/68
[2019-10-10] MEDS ORDERED: Atorvastatin 20mg tab ORAL SCH (21:00)
[2019-10-10] MEDS ORDERED: Heparin 5000 units/ml inj SUBQ SCH (21:00)
[2019-10-11] VITALS: BP 112/65
[2019-10-11] MEDS ORDERED: Vancomycin 1 GM in D5W 275 ML IV SCH (00:30)
--- NOTE | 2019-10-11 01:15 | History and Physical Report ---
DATE OF ADMISSION: 10/10/2019 CHIEF COMPLAINT: Patient is a 74-year-old female, who presents with a chief complaint of altered mental status. HISTORY OF PRESENT ILLNESS: Patient is a resident of [facility]. Patient herself is unable to contribute much to the History and Physical. Much of the History and Physical is obtained from the patient's chart. Apparently patient began to have altered mental status yesterday, 10/09/2019. Patient then began to experience fevers. Patient was transported to [facility]. Patient was admitted with fever, altered mental status, and urinary tract infection. Patient was also admitted to rule out COVID-19 given the fact patient is at senior care facility. REVIEW OF SYSTEMS: Unable to assess secondary to patient's mental status. PAST MEDICAL HISTORY: Significant for: 1. Type 2 diabetes. 2. Hypertension. 3. Atrial fibrillation. 4. Coronary artery disease, status post myocardial infarction. 5. Congestive heart failure. 6. Renal calculi. 7. Hyperthyroidism. 8. Obesity. 9. Chronic bilateral leg lymphedema. 10. Renal failure, chronic. 11. Hypercholesterolemia. 12. Rheumatoid arthritis. PAST SURGICAL HISTORY: Significant for ventral hernia repair x3. CURRENT MEDICATIONS: 1. Tylenol 650 mg p.o. q.6h. p.r.n. 2. Amlodipine 10 mg p.o. daily. 3. 1 drop into both eyes twice daily. 4. Clonidine 0.1 mg p.o. q.6h. p.r.n. 5. Coumadin 2.5 mg every Monday and Monday. 6. Coumadin 4 mg p.o. Monday, , Monday, Monday, and Monday. 7. Gabapentin 100 mg 2 tablets p.o. q.8h. 8. Glipizide 5 mg p.o. daily. 9. Lispro sliding scale. 10. Lasix 40 mg p.o. twice daily. 11. Latanoprost 1 drop in both eyes at bedtime. 12. Metformin 500 mg 1 tablet p.o. twice daily. 13. Methimazole 5 mg p.o. daily. 14. Gruver 5/325 mg 1 tablet p.o. q.6h. p.r.n. 15. Omeprazole 20 mg p.o. daily. 16. Potassium chloride 10 mEq p.o. daily. 17. Simvastatin 10 mg p.o. at bedtime. ALLERGIES: Codeine. SOCIAL HISTORY: Patient is a . Patient is a resident of [facility] as above. Patient denies tobacco or alcohol use. PHYSICAL EXAMINATION: VITAL SIGNS: Temperature 102.3, respirations 18, pulse 90, blood pressure 129/67. GENERAL: Patient is well-developed, well-nourished, slightly obese female, in no apparent distress. HEENT: Eyes, pupils are equal and responsive to light and accommodation. Extraocular movements are intact. NECK: Supple. No lymphadenopathy. CHEST: Lungs are clear to auscultation bilaterally without wheezes or rales. CARDIOVASCULAR: Regular rate. S1, S2 are normal without murmurs, rubs, or gallops. ABDOMEN: Soft, nontender, nondistended. Positive bowel sounds. No evidence of hepatosplenomegaly. Currently no rebound or guarding noted. EXTREMITIES: Negative for clubbing, cyanosis, or edema. RECTAL/GENITAL: Not performed. NEUROLOGIC: Cranial nerves II to XII grossly intact without focal deficits. LABORATORY STUDIES: WBC 23.3, hemoglobin 10.5, hematocrit 31.4, platelets 214,000. Sodium 137, potassium 3.0, chloride 100, CO2 26, BUN 42, creatinine 3.0, glucose 194. Troponin elevated at 4.435. Chest x-ray was reported as pulmonary vascular congestion and cardiomegaly. Urinalysis showed 3+ protein, 5+ blood, 3+ leukocyte esterase, 10 to 15 rbc's, and wbc's too numerous to count. ASSESSMENT: This is a 74-year-old female. 1. Fever. 2. Probable pyelonephritis. 3. Altered mental status. 4. Leukocytosis. 5. Elevated troponin. 6. Atrial fibrillation. 7. Diabetes type 2. 8. Hypertension. 9. Hyperthyroidism. 10. Coronary artery disease. 11. Renal failure. 12. Hypercholesterolemia. 13. Chronic lymphedema of the bilateral lower extremities. TREATMENT: 1. Fever/pyelonephritis. Patient has been started empirically on intravenous cefepime and vancomycin. Urine culture is pending. An Infectious Disease consultation has been obtained with Dr. Mays. We will follow recommendations of Infectious Disease. 2. Altered mental status. This may be secondary to pyelonephritis/sepsis as above. 3. Leukocytosis. 4. Elevated troponin. A Cardiology consultation has been obtained with Dr. Arun Barker. 5. Atrial fibrillation. Continue Coumadin as above. A Cardiology consultation has been obtained with Dr. Arun Barker. 6. Diabetes type 2. NovoLog sliding scale has been instituted. 7. Hypertension. Patient is currently hypotensive. Hold amlodipine as above. 8. Hyperthyroidism. Continue methimazole as above. 9. Coronary artery disease. Patient has elevated troponin. A Cardiology consultation has been obtained with Dr. Arun Barker. 10. Renal failure. A Nephrology consultation has been obtained with Dr. Pantera Wallace. 11. Hypercholesterolemia. Continue simvastatin as above. 12. Chronic lymphedema of bilateral lower extremities. Johny Blankenship M.D. DR: BRYAN JOB#: [id number] CC:
[2019-10-11 04:00] VITALS: BP 108/69
--- NOTE | 2019-10-11 04:30 | Consultation ---
DATE OF CONSULTATION: 10/10/2019 CARDIOLOGY CONSULTATION CONSULTING PHYSICIAN: Arun Barker MD. REFERRING PHYSICIAN: Bandar Brownlee MD, and Johny Blankenship MD. HISTORY OF PRESENT ILLNESS: This is a 74-year-old female who is a resident of convalescent facility. The patient apparently was lethargic, had poor response, had a fever, and was basically a poor historian and remains poor historian at this time. As I understand, information is obtained from review of the patient's chart. The patient is in COVID-19 isolation because of high risk of COVID infection including outbreak at the facility where she resides and she came from. Basically, she had catheterized urine that seemed to identify infection in her urine. The patient is hypotensive, but has history of multiple cardiac condition and this consultation requested. PAST MEDICAL HISTORY: The patient's past medical history is obtained from the chart and indicated that she has history of renal failure, hypothyroidism, morbid obesity, atherosclerotic heart disease without angina, anemia, hypertension, diabetes mellitus, lymphedema, atrial fibrillation, nephrolithiasis, hypokalemia, renal cyst, hereditary idiopathic neuropathy, urinary tract infections. Her past medical history also indicates history of atrial fibrillation, deep venous thrombosis, heart failure, myocardial infarction, pulmonary embolism, 3 abdominal hernias, thyroid disease, and history of pyelonephritis. ALLERGIES: She has allergies to codeine. SOCIAL HISTORY: No alcoholic intake. She used to live alone at home prior to her last hospitalization at another facility before being transferred to a convalescent facility eventually. Tobacco apparently none. REVIEW OF SYSTEMS: Unable to obtain. PHYSICAL EXAMINATION: Per emergency room physician's notation, initially at admission, moderate distress, lethargic, obese, and neck full range of motion. Respiratory, chest was apparently nontender. Lungs were clear. Normal breath sounds and the ER doctor indicates regular rhythm. No murmurs. Abdomen was normal bowel sounds, nontender. Not distended. LABORATORY AND DIAGNOSTIC DATA: Laboratory values, white count of 22,000, hemoglobin 10.5, and platelet count of 214,000. TSH is 0.98. CK of 407. Uric acid of 7.3. Lactic acid initially 3.2 and subsequently 3.6, and her other labs, 137, potassium of 3.0, BUN of 42, creatinine 3.0, and glucose of 194. Calcium is 8.9. AST and ALT normal. First set of cardiac enzymes 4.43 and albumin of 2.8. Coags, INR 1.8 and PTT of 40. D-dimer 3.81. Imaging, chest x-ray performed in the emergency room shows cardiomegaly, mild interstitial congestion, tortuous and calcified aorta. Data available in the patient's chart from prior hospitalization back in May 2019, indicated that the patient had an echocardiogram showing ejection fraction of 50% to 55%, PA pressure of 41. Echocardiogram that was performed today, technically difficult study with normal wall motion, ejection fraction of 60%, aortic valve sclerosis, aortic valve area of 1.5 with a peak of 11 and mean gradient of 6, trace mitral regurgitation, mild tricuspid regurgitation, PA pressure of 36. The previous data had shown that the patient had a CT scan that had shown cholelithiasis, cardiomegaly, coronary artery calcification, renal cyst, nephrolithiasis, atherosclerosis of the aorta, sigmoid colon diverticulosis, fat-containing bilateral supraumbilical hernia. She had previously had a dobutamine stress echo at the other facility, unfortunately not clear with that. She had an endoscopy back in 2018 as well. Of note, data from convalescent facility indicates she had creatinine of 1.0 on 09/17/2019, and she had a COVID test negative result as of 08/10/2019. Results from the hospital here is pending at this time. EKG shows atrial fibrillation, there is a delay in R-wave progression suggestive of an anterior infarction that is probably old, some minor ST elevations but with Q-waves in those leads V1 through V4, although the echocardiogram showed normal LV function, although an old EKG is not available for comparison. The patient's prior dobutamine stress echo from 09/22/2018 report indicated adequate dobutamine stress echocardiogram without evidence of pharmacological-induced ischemia. ASSESSMENT AND PLAN: 1. Permanent atrial fibrillation, on anticoagulation. 2. Toxic-metabolic encephalopathy. 3. Urinary tract infection, question pyelonephritis. 4. Diabetes mellitus. 5. Hypertension history. 6. Morbid obesity. 7. Myocardial infarction. 8. Acute on chronic renal insufficiency. 9. Coagulopathy secondary to Coumadin. This patient was seen in cardiac consultation. The patient's preliminary echocardiogram showed normal left ventricular systolic function, although EKG is concerning for injury pattern. I am not sure about the chronicity of those changes. In light of fact that the patient had negative dobutamine stress echo before and normal LV function at this time, it is hard for me to imagine that she may have had an injury based on the EKG abnormalities. It is possible that the EKG abnormalities are probably due to lead placement in this morbidly obese female. There is significant leftward axis being shown on this EKG and her preliminary echocardiogram shows only mild left ventricular hypertrophy. Therefore, an etiology for the left axis deviation is not completely clear at this time. The patient will be getting intravenous antibiotics and should receive intravenous fluids as needed. Her blood pressure is on the lower side and I suspect in light of the fact that she may be septic, some IV fluids may be in order. IV fluid was not administered in the emergency room because of the concern about possibility of congestive heart failure. Her temperature in the emergency room was as high as 102 and at this time is 99.3. The patient remains in the [facility] isolation for the time being. I will follow the patient along with you. Repeat cardiac enzymes of course will be ordered. The patient will receive some aspirin if and when she is able to take orally as she improves mentally. Statins will be initiated. The patient is already on Coreg twice a day that will be continued and depending on the direction of the troponin abnormalities and renal function, further recommendation will be provided. It is possible that the renal function may improve with IV hydration as she did have a creatinine of 1 at the time of her evaluation at [facility] laboratories as noted above. Arun Barker M.D. DR: Lakeshia JOB#: [id number] CC:
--- NOTE | 2019-10-11 05:05 | NUR ---
NURSE NOTES: EKG tracing done, filed in PTs chart.
--- NOTE | 2019-10-11 05:20 | NUR ---
NURSE NOTES: urine specimen sent to LAB.
[2019-10-11] MEDS: NovoLOG Insulin Flexpen SUBQ SCH ×5 (06:31→21:00)
[2019-10-11 07:06] LABS: HEMATOCRIT 31.5 % (37.0-47.0); HEMOGLOBIN 10.4 G/DL (12.0-16.0); MEAN CORPUSCULAR VOLUME 81 FL (80-99); PLATELET COUNT 196 K/UL (150-450); RED BLOOD COUNT 3.89 M/UL (4.20-5.40); RED CELL DISTRIBUTION WIDTH 13.8 % (11.6-14.8)
--- NOTE | 2019-10-11 07:15 | NUR ---
NURSE NOTES: receive dpatient report from alejo sherman rn. patient is on bed awake. not in acute distress, afib controlled on the monitor. no acute events last night. on [facility] soft diet. bed is low and locked for safety. will follow plan of care.
--- NOTE | 2019-10-11 07:20 | NUR ---
HAND-OFF: Report given to CUONG BEAVERS. Pt remains stable.
[2019-10-11 07:25] LABS: WHITE BLOOD COUNT 32.5 K/UL (4.8-10.8)
[2019-10-11 07:40] LABS: CHOLESTEROL 96 MG/DL (< 200); HDL CHOLESTEROL 13 MG/DL (40-60); LACTATE DEHYDROGENASE 237 U/L (81-234); TRIGLYCERIDES 130 MG/DL (30-150)
[2019-10-11 07:46] LABS: CREATINE KINASE 844 U/L (26-308); GAMMA GLUTAMYL TRANSPEPTIDASE 43 U/L (5-85)
[2019-10-11 07:50] LABS: ALANINE AMINOTRANSFERASE 25 U/L (12-78); ALBUMIN 2.6 G/DL (3.4-5.0); ALBUMIN/GLOBULIN RATIO 0.6 (1.0-2.7); ALKALINE PHOSPHATASE 92 U/L (46-116); ANION GAP 12 mmol/L (5-15); ASPARTATE AMINO TRANSFERASE 65 U/L (15-37); BILIRUBIN,TOTAL 0.4 MG/DL (0.2-1.0); BLOOD UREA NITROGEN 52 mg/dL (7-18); CALCIUM 8.6 MG/DL (8.5-10.1); CARBON DIOXIDE 25 MMOL/L (21-32); CHLORIDE 102 MMOL/L (98-107); CREATININE 3.2 MG/DL (0.55-1.30); POTASSIUM 3.4 MMOL/L (3.5-5.1); SODIUM 139 MMOL/L (136-145)
[2019-10-11 08:00] VITALS: BP 133/80
[2019-10-11 08:10] LABS: % IRON SATURATION 3 % (15-50); IRON 7 ug/dL (50-175); TOTAL IRON BINDING CAPACITY 243 ug/dL (250-450)
[2019-10-11 08:16] LABS: APPEARANCE,URINE SLIGHTLY CLOUDY; BILIRUBIN, URINE NEGATIVE (NEGATIVE); GLUCOSE, URINE (UA) NEGATIVE (NEGATIVE); KETONES,URINE 1+ (NEGATIVE); LEUKOCYTE ESTERASE ,URINE 3+ (NEGATIVE); NITRITE,URINE NEGATIVE (NEGATIVE); PH,URINE 5 (4.5-8.0); PROTEIN,URINE 3+ (NEGATIVE); UROBILINOGEN,URINE 1 MG/DL (0.0-1.0)
--- NOTE | 2019-10-11 08:16 | NUR ---
HAND-OFF: Report given to romulo jacobs rn.
[2019-10-11 08:18] LABS: COLOR,URINE YELLOW
[2019-10-11] MEDS ORDERED: Nitroglycerin Subl 0.4mg tab SL PRN ×2 (08:30)
[2019-10-11] MEDS ORDERED: Albuterol/Ipratropium 3ml neb HHN PRN ×2 (08:30)
[2019-10-11] MEDS ORDERED: Miralax 17gm pkt ORAL PRN ×2 (08:30)
[2019-10-11] MEDS ORDERED: Warfarin Sodium 2.5mg ORAL ONE (08:30)
[2019-10-11] MEDS ORDERED: Pantoprazole Inj IVP SCH (09:00)
[2019-10-11] MEDS ORDERED: Aspirin EC 81mg tab ORAL SCH ×2 (09:00)
[2019-10-11] MEDS ORDERED: Docusate 100mg cap ORAL SCH (09:00)
--- NOTE | 2019-10-11 09:05 | Nephrology Progress Note ---
Assessment/Plan Problem List: (1) Renal failure (ARF), acute on chronic (2) Diabetes mellitus (3) Morbid obesity (4) Chronic atrial fibrillation (5) History of DVT (deep vein thrombosis) (6) Anemia (7) NSTEMI (non-ST elevated myocardial infarction) (8) Sepsis (9) Pyelonephritis Assessment Renal failure, most likely acute on chronic. Sepsis, leukocytosis, fever, suspected 2019 novel coronavirus infection. Encephalopathy most likely toxic metabolic UTI/pyelonephritis Anemia Atrial fibrillation chronic, with fast ventricular rate. Diabetes mellitus Morbid obesity/limited mobility History of DVT Elevated troponin I Lactic acidosis Plan Monitor troponin I and CPK Aspirin, Coreg ,nitrate for elevated troponin Antibiotics Echocardiogram results noted Kidney ultrasound results pending Monitor urine output and renal parameters Keep the blood pressure and blood sugar in check Coumadin for DVT and atrial fibrillation IV Protonix Subjective ROS Limited/Unobtainable: No Constitutional: Reports: malaise, weakness Objective Objective Last 24 Hour Vital Signs Date Time Temp Pulse Resp B/P (MAP) Pulse Ox O2 Delivery O2 Flow Rate FiO2 10/11/19 08:00 97.0 94 18 133/80 (97) 99 10/11/19 04:00 98.3 91 20 108/69 (82) 97 10/11/19 04:00 Room Air 10/11/19 04:00 94 10/11/19 00:00 97.8 89 20 112/65 (81) 98 10/11/19 00:00 Room Air 10/11/19 00:00 78 10/10/19 20:14 81 119/69 10/10/19 20:00 97.6 89 20 116/68 (84) 97 10/10/19 20:00 86 10/10/19 20:00 Room Air 10/10/19 16:11 96 98/51 10/10/19 16:00 Room Air 10/10/19 16:00 94 10/10/19 16:00 96.8 96 22 100/69 (79) 96 10/10/19 13:11 Room Air 10/10/19 12:00 99.3 96 22 98/51 (67) 96 10/10/19 11:27 90 10/10/19 11:06 111 10/10/19 10:50 101.9 99 20 101/61 99 Room Air 10/10/19 10:17 101 20 98/68 98 Room Air Intake and Output 10/10/19 10/11/19 19:00 07:00 Intake Total 360 ml Output Total 150 ml 300 ml Balance 210 ml -300 ml Intake Oral 360 ml Output Urine Total 150 ml 300 ml Laboratory Tests 10/10/19 13:00: Urine Eosinophils None seen 10/11/19 04:00: Urine Color Yellow, Urine Appearance Slightly cloudy, Urine pH 5, Urine Specific [place] 1.020, Urine Protein 3+H, Urine Glucose (UA) Negative, Urine Ketones 1+H, Urine Blood 5+H, Urine Nitrite Negative, Urine Bilirubin Negative, Urine Urobilinogen 1H, Urine Leukocyte Esterase 3+H, Urine RBC 5-10H, Urine WBC 60-80H, Urine Squamous Epithelial Cells Few, Urine Bacteria Few 10/11/19 06:10: White Blood Count 32.5*H, Red Blood Count 3.89L, Hemoglobin 10.4L, Hematocrit 31.5L, Mean Corpuscular Volume 81, Mean Corpuscular Hemoglobin 26.7L, Mean Corpuscular Hemoglobin Concent 33.0, Red Cell Distribution Width 13.8, Platelet Count 196, Mean Platelet Volume 8.0, Neutrophils (%) (Auto) , Lymphocytes (%) ( Auto) , Monocytes (%) (Auto) , Eosinophils (%) (Auto) , Basophils (%) (Auto) , Neutrophils % (Manual) [Pending], Lymphocytes % (Manual) [Pending], Platelet Estimate [Pending], Platelet Morphology [Pending], Erythrocyte Sedimentation Rate [Pending], Reticulocyte Count [Pending], Prothrombin Time 20.6H, Prothromb Time International Ratio 2.0H, Activated Partial Thromboplast Time 40H, Sodium Level 139, Potassium Level 3.4L, Chloride Level 102, Carbon Dioxide Level 25, Anion Gap 12, Blood Urea Nitrogen 52H, Creatinine 3.2H, Estimat Glomerular Filtration Rate 17.2, Glucose Level 171H, Lactic Acid Level 1.80, Uric Acid 7.6H , Calcium Level 8.6, Phosphorus Level 4.0, Magnesium Level 1.7L, Iron Level 7L, Total Iron Binding Capacity 243L, Percent Iron Saturation 3L, Unsaturated Iron Binding 236, Total Bilirubin 0.4, Gamma Glutamyl Transpeptidase 43, Aspartate Amino Transf (AST/SGOT) 65H, Alanine Aminotransferase (ALT/SGPT) 25, Alkaline Phosphatase 92, Lactate Dehydrogenase 237H, Total Creatine Kinase 844H, Troponin I 7.131H, C-Reactive Protein, Quantitative 29.0H, Pro-B-Type Natriuretic Peptide 02708Y, Total Protein 7.3, Albumin 2.6L, Globulin 4.7, Albumin/Globulin Ratio 0.6L, Triglycerides Level 130, Cholesterol Level 96, LDL Cholesterol 40, HDL Cholesterol 13L, Cholesterol/HDL Ratio 7.4H, Carcinoembryonic Antigen [Pending], Vitamin B12 Level 498, Folate 15.3, Thyroid Stimulating Hormone (TSH) 1.054 Height (Feet): 5 Height (Inches): 3.00 Weight (Pounds): 325 General Appearance: lethargic Cardiovascular: tachycardia Respiratory/Chest: decreased breath sounds Abdomen: distended Pantera Wallace MD Oct 11, 2019 09:05
[2019-10-11] MEDS: Aspirin EC 81mg tab ORAL SCH (09:22)
[2019-10-11] MEDS: Docusate 100mg cap ORAL SCH ×3 (09:25→17:37)
[2019-10-11] MEDS: Pantoprazole Inj IVP SCH ×2 (09:25→20:57)
--- NOTE | 2019-10-11 09:29 | NUR ---
CASE MANAGEMENT: INITIAL REVIEW 74 YO F BIBA FROM [facility] CC: FEVER PMHx: UTI. A FIB. HTN. DM. SI:SEPSIS. PYELONEPHRITIS. T 100.4 HR 90 RR 18 B/P 120/91 SATS 96% ON RA LABS: WBC 23 K 3.4 BUN 52 CR 3.2 GLU 171 AST 65 IS: NS BOLUS X2 TYLENOL REC X1 CXR Impression: Cardiomegaly. Mild interstitial congestion. PATIENT ADMITTED TO [facility] 10/10/2019 @ 0733 DCP: SNF PLAN OF CARE: US RENAL ID CONSULT CARDIO CONSULT INTERQUAL MET
[2019-10-11] MEDS ORDERED: NovoLOG Insulin Flexpen SUBQ SCH (11:30)
[2019-10-11 12:00] VITALS: BP 126/79
--- NOTE | 2019-10-11 13:19 | Pulmonology Progress Note ---
Subjective ROS Limited/Unobtainable: No Constitutional: Reports: no symptoms HEENT: Repors: no symptoms Allergies: Coded Allergies: CODEINE (Verified Allergy, Unknown, 10/10/19) Objective Last 24 Hour Vital Signs Date Time Temp Pulse Resp B/P (MAP) Pulse Ox O2 Delivery O2 Flow Rate FiO2 10/11/19 12:00 98.1 85 18 126/79 (95) 98 10/11/19 11:41 82 126/59 10/11/19 09:00 Room Air 10/11/19 08:00 97.0 94 18 133/80 (97) 99 10/11/19 04:00 98.3 91 20 108/69 (82) 97 10/11/19 04:00 Room Air 10/11/19 04:00 94 10/11/19 00:00 97.8 89 20 112/65 (81) 98 10/11/19 00:00 Room Air 10/11/19 00:00 78 10/10/19 20:14 81 119/69 10/10/19 20:00 97.6 89 20 116/68 (84) 97 10/10/19 20:00 86 10/10/19 20:00 Room Air 10/10/19 16:11 96 98/51 10/10/19 16:00 Room Air 10/10/19 16:00 94 10/10/19 16:00 96.8 96 22 100/69 (79) 96 Intake and Output 10/10/19 10/11/19 19:00 07:00 Intake Total 360 ml Output Total 150 ml 300 ml Balance 210 ml -300 ml Intake Oral 360 ml Output Urine Total 150 ml 300 ml General Appearance: WD/WN, no acute distress HEENT: normocephalic Respiratory: chest wall non-tender, normal breath sounds Cardiovascular: normal peripheral pulses, normal rate Genitourinary: normal external genitalia Extremities: no clubbing Skin: no rash Microbiology Date/Time Source Procedure Growth Status 10/10/19 05:50 Blood Blood Culture - Preliminary Gram Negative Vitaly Resulted 10/10/19 05:50 Blood Blood Culture - Preliminary Gram Negative Vitaly Resulted 10/10/19 05:50 Nasopharynx Coronavirus COVID-19 PCR ([facility]) - Final Complete 10/10/19 06:05 Urine,Clean Catch Urine Culture - Preliminary Gram Negative Vitaly Resulted 10/10/19 06:10 Rectum Received Laboratory Tests 10/11/19 04:00: Urine Color Yellow, Urine Appearance Slightly cloudy, Urine pH 5, Urine Specific [place] 1.020, Urine Protein 3+H, Urine Glucose (UA) Negative, Urine Ketones 1+H, Urine Blood 5+H, Urine Nitrite Negative, Urine Bilirubin Negative, Urine Urobilinogen 1H, Urine Leukocyte Esterase 3+H, Urine RBC 5-10H, Urine WBC 60-80H, Urine Squamous Epithelial Cells Few, Urine Bacteria Few 10/11/19 06:10: White Blood Count 32.5*H, Red Blood Count 3.89L, Hemoglobin 10.4L, Hematocrit 31.5L, Mean Corpuscular Volume 81, Mean Corpuscular Hemoglobin 26.7L, Mean Corpuscular Hemoglobin Concent 33.0, Red Cell Distribution Width 13.8, Platelet Count 196, Mean Platelet Volume 8.0, Neutrophils (%) (Auto) , Lymphocytes (%) ( Auto) , Monocytes (%) (Auto) , Eosinophils (%) (Auto) , Basophils (%) (Auto) , Differential Total Cells Counted 100, Neutrophils % (Manual) 87H, Lymphocytes % (Manual) 4L, Monocytes % (Manual) 2, Eosinophils % (Manual) 1, Basophils % ( Manual) 0, Band Neutrophils 6, Platelet Estimate Adequate, Platelet Morphology Normal, Hypochromasia 1+, Erythrocyte Sedimentation Rate 105H, Reticulocyte Count 0.5, Prothrombin Time 20.6H, Prothromb Time International Ratio 2.0H, Activated Partial Thromboplast Time 40H, Sodium Level 139, Potassium Level 3.4L , Chloride Level 102, Carbon Dioxide Level 25, Anion Gap 12, Blood Urea Nitrogen 52H, Creatinine 3.2H, Estimat Glomerular Filtration Rate 17.2, Glucose Level 171H, Lactic Acid Level 1.80, Uric Acid 7.6H, Calcium Level 8.6, Phosphorus Level 4.0, Magnesium Level 1.7L, Iron Level 7L, Total Iron Binding Capacity 243L, Percent Iron Saturation 3L, Unsaturated Iron Binding 236, Total Bilirubin 0.4, Gamma Glutamyl Transpeptidase 43, Aspartate Amino Transf (AST/ SGOT) 65H, Alanine Aminotransferase (ALT/SGPT) 25, Alkaline Phosphatase 92, Lactate Dehydrogenase 237H, Total Creatine Kinase 844H, Troponin I 7.131H, C- Reactive Protein, Quantitative 29.0H, Pro-B-Type Natriuretic Peptide [id number], Total Protein 7.3, Albumin 2.6L, Globulin 4.7, Albumin/Globulin Ratio 0.6L, Triglycerides Level 130, Cholesterol Level 96, LDL Cholesterol 40, HDL Cholesterol 13L, Cholesterol/HDL Ratio 7.4H, Carcinoembryonic Antigen [Pending] , Vitamin B12 Level 498, Folate 15.3, Thyroid Stimulating Hormone (TSH) 1.054 Current Medications Medications (Trade) Dose Ordered Sig/Ardia Route PRN Reason Start Time Stop Time Status Last Admin Dose Admin Acetaminophen (Tylenol) 650 mg Q4H PRN ORAL fever 10/11/19 08:30 11/09/19 08:29 10/11/19 09:24 Albuterol/ Ipratropium (Albuterol/ Ipratropium) 3 ml Q4H PRN HHN Shortness of Breath 10/11/19 08:30 10/15/19 08:29 Aspirin (Ecotrin) 81 mg DAILY ORAL 10/11/19 09:00 11/25/19 08:59 10/11/19 09:22 Atorvastatin Calcium (Lipitor) 40 mg BEDTIME ORAL 10/11/19 21:00 01/08/20 20:59 Carvedilol (Coreg) 3.125 mg EVERY 12 HOURS ORAL 10/11/19 09:00 11/09/19 20:59 10/11/19 11:41 Cefepime HCl 1 gm/ Dextrose 55 ml @ 110 mls/hr Q24H IVPB 10/11/19 18:00 10/17/19 17:59 Clonidine HCl (Catapres Tab) 0.1 mg Q4H PRN ORAL Blood pressure over 160 systol 10/11/19 08:30 01/08/20 08:29 Dextrose (Dextrose 50%) 25 ml Q30M PRN IV Hypoglycemia 10/11/19 08:30 01/08/20 11:29 Dextrose (Dextrose 50%) 50 ml Q30M PRN IV Hypoglycemia 10/11/19 08:30 01/08/20 11:29 Docusate Sodium (Colace) 100 mg THREE TIMES A DAY ORAL 10/11/19 09:00 11/09/19 17:59 10/11/19 09:25 Gabapentin (Neurontin) 100 mg THREE TIMES A DAY ORAL 10/11/19 09:00 11/09/19 12:59 10/11/19 09:26 Insulin Aspart (NovoLOG) BEFORE MEALS AND HS SUBQ 10/11/19 11:30 01/08/20 11:29 Nitroglycerin (Ntg) 0.4 mg Q5M PRN SL Prn Chest Pain 10/11/19 08:30 11/09/19 11:29 Ondansetron HCl (Zofran) 4 mg Q6H PRN IVP Nausea & Vomiting 10/11/19 08:30 11/09/19 08:29 Pantoprazole (Protonix) 40 mg EVERY 12 HOURS IVP 10/11/19 09:00 11/09/19 12:59 10/11/19 09:25 Polyethylene Glycol (Miralax) 17 gm DAILYPRN PRN ORAL Constipation 10/11/19 08:30 11/09/19 08:29 Temazepam (Restoril) 15 mg HSPRN PRN ORAL Insomnia 10/11/19 11:30 10/17/19 11:29 Vancomycin HCl ([facility] pharmacy to dose) 1 ea DAILY PRN MISC SEPSIS 10/11/19 09:00 11/09/19 11:59 Warfarin Sodium (Coumadin per pharmacy) 1 ea DAILY PRN MISC Per rx protocol 10/11/19 09:00 11/09/19 12:59 Warfarin Sodium (Coumadin) 2.5 mg ONCE ORAL 10/11/19 17:00 10/11/19 18:00 Assessment/Plan Problems: (1) Sepsis (2) Renal failure (3) Pyelonephritis (4) Suspected 2019 novel coronavirus infection (5) Chronic atrial fibrillation (6) Limited mobility (7) Anemia (8) Atrial fibrillation with rapid ventricular response (9) Elevated troponin I level (10) Diabetes mellitus (11) Morbid obesity Assessment/Plan salmeron culture Blood culture are positive for GNR pt is afebrile now electrolytes supplement iv abx renal studies sliding scale diabetic diet renal studies dvt prophylaxis. Bandar Brownlee MD Oct 11, 2019 13:19
--- NOTE | 2019-10-11 15:01 | Infectious Diseases Prog Note ---
Assessment/Plan Assessment/Plan Assessment: Severe Sepsis Probable PNA- r/o COVID - at [facility] -10/09 CXR: Mild interstitial congestion. Cannot rule out small left pleural effusion SARS-COV2 PCR neg UTI c/w bacteremia -u/a wbc tnct, nit neg, leuk +3; ucx >100k GNR -10/09 Bcx /4 GNR Fever; improving Leukocytosis; worsening Acute encephalopathy morbid obesity HTN Dm2 hx of UTI Afib on coumadin [place] resident ([facility]) Plan: -Continue empiric IV Vancomcyin #2 --will dc soon if no gram positive growth Switch empiric Cefepime #2 to Meropenem pending sensi GNR ucx and Bcx -10/09 SP Meropenem x1 -f/u cx -monitor CBC/CMP, temperatures -COVID19 isolation and testing; send 2nd sample -Bcx x2 -CXR am Thank you for consulting [facility]. Will continue to follow along with you. Discussed with RN. Subjective Allergies: Coded Allergies: CODEINE (Verified Allergy, Unknown, 10/10/19) Objective Vital Signs Last 24 Hour Vital Signs Date Time Temp Pulse Resp B/P (MAP) Pulse Ox O2 Delivery O2 Flow Rate FiO2 10/11/19 12:00 98.1 85 18 126/79 (95) 98 10/11/19 11:41 82 126/59 10/11/19 09:00 Room Air 10/11/19 08:00 97.0 94 18 133/80 (97) 99 10/11/19 04:00 98.3 91 20 108/69 (82) 97 10/11/19 04:00 Room Air 10/11/19 04:00 94 10/11/19 00:00 97.8 89 20 112/65 (81) 98 10/11/19 00:00 Room Air 10/11/19 00:00 78 10/10/19 20:14 81 119/69 10/10/19 20:00 97.6 89 20 116/68 (84) 97 10/10/19 20:00 86 10/10/19 20:00 Room Air 10/10/19 16:11 96 98/51 10/10/19 16:00 Room Air 10/10/19 16:00 94 10/10/19 16:00 96.8 96 22 100/69 (79) 96 Height (Feet): 5 Height (Inches): 3.00 Weight (Pounds): 325 Microbiology Date/Time Source Procedure Growth Status 10/10/19 05:50 Blood Blood Culture - Preliminary Gram Negative Vitaly Resulted 10/10/19 05:50 Blood Blood Culture - Preliminary Gram Negative Vitaly Resulted 10/10/19 05:50 Nasopharynx Coronavirus COVID-19 PCR ([facility]) - Final Complete 10/10/19 06:05 Urine,Clean Catch Urine Culture - Preliminary Gram Negative Vitaly Resulted 10/10/19 06:10 Rectum Received Laboratory Tests Test 10/11/19 04:00 10/11/19 06:10 Urine Color Yellow Urine Appearance Slightly cloudy Urine pH 5 (4.5-8.0) Urine Specific [place] 1.020 (1.005-1.035) Urine Protein 3+ (NEGATIVE) H Urine Glucose (UA) Negative (NEGATIVE) Urine Ketones 1+ (NEGATIVE) H Urine Blood 5+ (NEGATIVE) H Urine Nitrite Negative (NEGATIVE) Urine Bilirubin Negative (NEGATIVE) Urine Urobilinogen 1 MG/DL (0.0-1.0) H Urine Leukocyte Esterase 3+ (NEGATIVE) H Urine RBC 5-10 /HPF (0 - 2) H Urine WBC 60-80 /HPF (0 - 2) H Urine Squamous Epithelial Cells Few /LPF (NONE/OCC) Urine Bacteria Few /HPF (NONE) White Blood Count 32.5 K/UL (4.8-10.8) *H Red Blood Count 3.89 M/UL (4.20-5.40) L Hemoglobin 10.4 G/DL (12.0-16.0) L Hematocrit 31.5 % (37.0-47.0) L Mean Corpuscular Volume 81 FL (80-99) Mean Corpuscular Hemoglobin 26.7 PG (27.0-31.0) L Mean Corpuscular Hemoglobin Concent 33.0 G/DL (32.0-36.0) Red Cell Distribution Width 13.8 % (11.6-14.8) Platelet Count 196 K/UL (150-450) Mean Platelet Volume 8.0 FL (6.5-10.1) Neutrophils (%) (Auto) % (45.0-75.0) Lymphocytes (%) (Auto) % (20.0-45.0) Monocytes (%) (Auto) % (1.0-10.0) Eosinophils (%) (Auto) % (0.0-3.0) Basophils (%) (Auto) % (0.0-2.0) Differential Total Cells Counted 100 Neutrophils % (Manual) 87 % (45-75) H Lymphocytes % (Manual) 4 % (20-45) L Monocytes % (Manual) 2 % (1-10) Eosinophils % (Manual) 1 % (0-3) Basophils % (Manual) 0 % (0-2) Band Neutrophils 6 % (0-8) Other Cell Type Pathologist review Platelet Estimate Adequate Platelet Morphology Normal Hypochromasia 1+ Erythrocyte Sedimentation Rate 105 MM/HR (0-30) H Reticulocyte Count 0.5 % (0.5-2.0) Prothrombin Time 20.6 SEC (9.30-11.50) H Prothromb Time International Ratio 2.0 (0.9-1.1) H Activated Partial Thromboplast Time 40 SEC (23-33) H Sodium Level 139 MMOL/L (136-145) Potassium Level 3.4 MMOL/L (3.5-5.1) L Chloride Level 102 MMOL/L (98-107) Carbon Dioxide Level 25 MMOL/L (21-32) Anion Gap 12 mmol/L (5-15) Blood Urea Nitrogen 52 mg/dL (7-18) H Creatinine 3.2 MG/DL (0.55-1.30) H Estimat Glomerular Filtration Rate 17.2 mL/min (>60) Glucose Level 171 MG/DL (74-106) H Lactic Acid Level 1.80 mmol/L (0.4-2.0) Uric Acid 7.6 MG/DL (2.6-7.2) H Calcium Level 8.6 MG/DL (8.5-10.1) Phosphorus Level 4.0 MG/DL (2.5-4.9) Magnesium Level 1.7 MG/DL (1.8-2.4) L Iron Level 7 ug/dL (50-175) L Total Iron Binding Capacity 243 ug/dL (250-450) L Percent Iron Saturation 3 % (15-50) L Unsaturated Iron Binding 236 ug/dL (112-346) Total Bilirubin 0.4 MG/DL (0.2-1.0) Gamma Glutamyl Transpeptidase 43 U/L (5-85) Aspartate Amino Transf (AST/SGOT) 65 U/L (15-37) H Alanine Aminotransferase (ALT/SGPT) 25 U/L (12-78) Alkaline Phosphatase 92 U/L (46-116) Lactate Dehydrogenase 237 U/L (81-234) H Total Creatine Kinase 844 U/L (26-308) H Troponin I 7.131 ng/mL (0.000-0.056) C-Reactive Protein, Quantitative 29.0 mg/dL (0.00-0.90) H Pro-B-Type Natriuretic Peptide 50322 pg/mL (0-125) H Total Protein 7.3 G/DL (6.4-8.2) Albumin 2.6 G/DL (3.4-5.0) L Globulin 4.7 g/dL Albumin/Globulin Ratio 0.6 (1.0-2.7) L Triglycerides Level 130 MG/DL (30-150) Cholesterol Level 96 MG/DL (< 200) LDL Cholesterol 40 mg/dL (<100) HDL Cholesterol 13 MG/DL (40-60) L Cholesterol/HDL Ratio 7.4 (3.3-4.4) H Carcinoembryonic Antigen Pending Vitamin B12 Level 498 PG/ML (193-986) Folate 15.3 NG/ML (8.6-58.9) Thyroid Stimulating Hormone (TSH) 1.054 uiU/mL (0.358-3.740) Current Medications Medications (Trade) Dose Ordered Sig/Adria Route PRN Reason Start Time Stop Time Status Last Admin Dose Admin Acetaminophen (Tylenol) 650 mg Q4H PRN ORAL fever 10/11/19 08:30 11/09/19 08:29 10/11/19 09:24 Albuterol/ Ipratropium (Albuterol/ Ipratropium) 3 ml Q4H PRN HHN Shortness of Breath 10/11/19 08:30 10/15/19 08:29 Aspirin (Ecotrin) 81 mg DAILY ORAL 10/11/19 09:00 11/25/19 08:59 10/11/19 09:22 Atorvastatin Calcium (Lipitor) 40 mg BEDTIME ORAL 10/11/19 21:00 01/08/20 20:59 Carvedilol (Coreg) 3.125 mg EVERY 12 HOURS ORAL 10/11/19 09:00 11/09/19 20:59 10/11/19 11:41 Cefepime HCl 1 gm/ Dextrose 55 ml @ 110 mls/hr Q24H IVPB 10/11/19 18:00 10/17/19 17:59 Clonidine HCl (Catapres Tab) 0.1 mg Q4H PRN ORAL Blood pressure over 160 systol 10/11/19 08:30 01/08/20 08:29 Dextrose (Dextrose 50%) 25 ml Q30M PRN IV Hypoglycemia 10/11/19 08:30 01/08/20 11:29 Dextrose (Dextrose 50%) 50 ml Q30M PRN IV Hypoglycemia 10/11/19 08:30 01/08/20 11:29 Docusate Sodium (Colace) 100 mg THREE TIMES A DAY ORAL 10/11/19 09:00 11/09/19 17:59 10/11/19 13:38 Gabapentin (Neurontin) 100 mg THREE TIMES A DAY ORAL 10/11/19 09:00 11/09/19 12:59 10/11/19 13:38 Insulin Aspart (NovoLOG) BEFORE MEALS AND HS SUBQ 10/11/19 11:30 01/08/20 11:29 10/11/19 13:36 Nitroglycerin (Ntg) 0.4 mg Q5M PRN SL Prn Chest Pain 10/11/19 08:30 11/09/19 11:29 Ondansetron HCl (Zofran) 4 mg Q6H PRN IVP Nausea & Vomiting 10/11/19 08:30 11/09/19 08:29 Pantoprazole (Protonix) 40 mg EVERY 12 HOURS IVP 10/11/19 09:00 11/09/19 12:59 10/11/19 09:25 Polyethylene Glycol (Miralax) 17 gm DAILYPRN PRN ORAL Constipation 10/11/19 08:30 11/09/19 08:29 Temazepam (Restoril) 15 mg HSPRN PRN ORAL Insomnia 10/11/19 11:30 10/17/19 11:29 Vancomycin HCl ([facility] pharmacy to dose) 1 ea DAILY PRN MISC SEPSIS 10/11/19 09:00 11/09/19 11:59 Warfarin Sodium (Coumadin per pharmacy) 1 ea DAILY PRN MISC Per rx protocol 10/11/19 09:00 11/09/19 12:59 Warfarin Sodium (Coumadin) 2.5 mg ONCE ORAL 10/11/19 17:00 10/11/19 18:00 Hannah Mays M.D. Oct 11, 2019 15:01
--- NOTE | 2019-10-11 15:18 | Diagnostic Imaging Report ---
Indication: Acute renal failure Technique: Grayscale and duplex images of the kidneys, retroperitoneum, and bladder were obtained. Comparison: none Findings: Exam slightly limited due to patient body habitus. Right kidney measures 11.4 cm in length. Left kidney measures 12.8 cm in length. Both kidneys demonstrate normal echogenicity. No hydronephrosis. Both kidneys demonstrate parapelvic cysts. Echogenic foci are seen in the lower pole of the left renal sinus.. Normal inferior vena cava. Bladder is empty, contains a Anne catheter. Impression: Negative for hydronephrosis Possible nonobstructive left lower pole renal calculi Incidental finding of bilateral renal parapelvic cysts.
--- NOTE | 2019-10-11 15:59 | Internal Med Progress Note ---
Subjective Physician Name Aleksandr Vega Attending Physician Aleksandr Vega MD Current Medications Medications (Trade) Dose Ordered Sig/Adria Route PRN Reason Start Time Stop Time Status Last Admin Dose Admin Acetaminophen (Tylenol) 650 mg Q4H PRN ORAL fever 10/11/19 08:30 11/09/19 08:29 10/11/19 09:24 Albuterol/ Ipratropium (Albuterol/ Ipratropium) 3 ml Q4H PRN HHN Shortness of Breath 10/11/19 08:30 10/15/19 08:29 Aspirin (Ecotrin) 81 mg DAILY ORAL 10/11/19 09:00 11/25/19 08:59 10/11/19 09:22 Atorvastatin Calcium (Lipitor) 40 mg BEDTIME ORAL 10/11/19 21:00 01/08/20 20:59 Carvedilol (Coreg) 3.125 mg EVERY 12 HOURS ORAL 10/11/19 09:00 11/09/19 20:59 10/11/19 11:41 Clonidine HCl (Catapres Tab) 0.1 mg Q4H PRN ORAL Blood pressure over 160 systol 10/11/19 08:30 01/08/20 08:29 Dextrose (Dextrose 50%) 25 ml Q30M PRN IV Hypoglycemia 10/11/19 08:30 01/08/20 11:29 Dextrose (Dextrose 50%) 50 ml Q30M PRN IV Hypoglycemia 10/11/19 08:30 01/08/20 11:29 Docusate Sodium (Colace) 100 mg THREE TIMES A DAY ORAL 10/11/19 09:00 11/09/19 17:59 10/11/19 13:38 Gabapentin (Neurontin) 100 mg THREE TIMES A DAY ORAL 10/11/19 09:00 11/09/19 12:59 10/11/19 13:38 Insulin Aspart (NovoLOG) BEFORE MEALS AND HS SUBQ 10/11/19 11:30 01/08/20 11:29 10/11/19 13:36 Meropenem 500 mg/ Sodium Chloride 55 ml @ 110 mls/hr Q12HR@0500,1700 IVPB 10/11/19 17:00 10/16/19 16:59 Nitroglycerin (Ntg) 0.4 mg Q5M PRN SL Prn Chest Pain 10/11/19 08:30 11/09/19 11:29 Ondansetron HCl (Zofran) 4 mg Q6H PRN IVP Nausea & Vomiting 10/11/19 08:30 11/09/19 08:29 Pantoprazole (Protonix) 40 mg EVERY 12 HOURS IVP 10/11/19 09:00 11/09/19 12:59 10/11/19 09:25 Polyethylene Glycol (Miralax) 17 gm DAILYPRN PRN ORAL Constipation 10/11/19 08:30 11/09/19 08:29 Temazepam (Restoril) 15 mg HSPRN PRN ORAL Insomnia 10/11/19 11:30 10/17/19 11:29 Vancomycin HCl ([facility] pharmacy to dose) 1 ea DAILY PRN MISC SEPSIS 10/11/19 09:00 11/09/19 11:59 Warfarin Sodium (Coumadin per pharmacy) 1 ea DAILY PRN MISC Per rx protocol 10/11/19 09:00 11/09/19 12:59 Warfarin Sodium (Coumadin) 2.5 mg ONCE ORAL 10/11/19 17:00 10/11/19 18:00 Allergies: Coded Allergies: CODEINE (Verified Allergy, Unknown, 10/10/19) Subjective awake, alert, responsive, denies any chest pain or shortness of breath, denies any fever or chills, complained about lower abdominal pain. Objective Last Vital Signs Date Time Temp Pulse Resp B/P (MAP) Pulse Ox O2 Delivery O2 Flow Rate FiO2 10/11/19 12:00 98.1 85 18 126/79 (95) 98 10/11/19 09:00 Room Air Laboratory Tests Test 10/11/19 04:00 10/11/19 06:10 Urine Color Yellow Urine Appearance Slightly cloudy Urine pH 5 (4.5-8.0) Urine Specific [place] 1.020 (1.005-1.035) Urine Protein 3+ (NEGATIVE) H Urine Glucose (UA) Negative (NEGATIVE) Urine Ketones 1+ (NEGATIVE) H Urine Blood 5+ (NEGATIVE) H Urine Nitrite Negative (NEGATIVE) Urine Bilirubin Negative (NEGATIVE) Urine Urobilinogen 1 MG/DL (0.0-1.0) H Urine Leukocyte Esterase 3+ (NEGATIVE) H Urine RBC 5-10 /HPF (0 - 2) H Urine WBC 60-80 /HPF (0 - 2) H Urine Squamous Epithelial Cells Few /LPF (NONE/OCC) Urine Bacteria Few /HPF (NONE) White Blood Count 32.5 K/UL (4.8-10.8) *H Red Blood Count 3.89 M/UL (4.20-5.40) L Hemoglobin 10.4 G/DL (12.0-16.0) L Hematocrit 31.5 % (37.0-47.0) L Mean Corpuscular Volume 81 FL (80-99) Mean Corpuscular Hemoglobin 26.7 PG (27.0-31.0) L Mean Corpuscular Hemoglobin Concent 33.0 G/DL (32.0-36.0) Red Cell Distribution Width 13.8 % (11.6-14.8) Platelet Count 196 K/UL (150-450) Mean Platelet Volume 8.0 FL (6.5-10.1) Neutrophils (%) (Auto) % (45.0-75.0) Lymphocytes (%) (Auto) % (20.0-45.0) Monocytes (%) (Auto) % (1.0-10.0) Eosinophils (%) (Auto) % (0.0-3.0) Basophils (%) (Auto) % (0.0-2.0) Differential Total Cells Counted 100 Neutrophils % (Manual) 87 % (45-75) H Lymphocytes % (Manual) 4 % (20-45) L Monocytes % (Manual) 2 % (1-10) Eosinophils % (Manual) 1 % (0-3) Basophils % (Manual) 0 % (0-2) Band Neutrophils 6 % (0-8) Other Cell Type Pathologist review Platelet Estimate Adequate Platelet Morphology Normal Hypochromasia 1+ Erythrocyte Sedimentation Rate 105 MM/HR (0-30) H Reticulocyte Count 0.5 % (0.5-2.0) Prothrombin Time 20.6 SEC (9.30-11.50) H Prothromb Time International Ratio 2.0 (0.9-1.1) H Activated Partial Thromboplast Time 40 SEC (23-33) H Sodium Level 139 MMOL/L (136-145) Potassium Level 3.4 MMOL/L (3.5-5.1) L Chloride Level 102 MMOL/L (98-107) Carbon Dioxide Level 25 MMOL/L (21-32) Anion Gap 12 mmol/L (5-15) Blood Urea Nitrogen 52 mg/dL (7-18) H Creatinine 3.2 MG/DL (0.55-1.30) H Estimat Glomerular Filtration Rate 17.2 mL/min (>60) Glucose Level 171 MG/DL (74-106) H Lactic Acid Level 1.80 mmol/L (0.4-2.0) Uric Acid 7.6 MG/DL (2.6-7.2) H Calcium Level 8.6 MG/DL (8.5-10.1) Phosphorus Level 4.0 MG/DL (2.5-4.9) Magnesium Level 1.7 MG/DL (1.8-2.4) L Iron Level 7 ug/dL (50-175) L Total Iron Binding Capacity 243 ug/dL (250-450) L Percent Iron Saturation 3 % (15-50) L Unsaturated Iron Binding 236 ug/dL (112-346) Total Bilirubin 0.4 MG/DL (0.2-1.0) Gamma Glutamyl Transpeptidase 43 U/L (5-85) Aspartate Amino Transf (AST/SGOT) 65 U/L (15-37) H Alanine Aminotransferase (ALT/SGPT) 25 U/L (12-78) Alkaline Phosphatase 92 U/L (46-116) Lactate Dehydrogenase 237 U/L (81-234) H Total Creatine Kinase 844 U/L (26-308) H Troponin I 7.131 ng/mL (0.000-0.056) C-Reactive Protein, Quantitative 29.0 mg/dL (0.00-0.90) H Pro-B-Type Natriuretic Peptide 77467 pg/mL (0-125) H Total Protein 7.3 G/DL (6.4-8.2) Albumin 2.6 G/DL (3.4-5.0) L Globulin 4.7 g/dL Albumin/Globulin Ratio 0.6 (1.0-2.7) L Triglycerides Level 130 MG/DL (30-150) Cholesterol Level 96 MG/DL (< 200) LDL Cholesterol 40 mg/dL (<100) HDL Cholesterol 13 MG/DL (40-60) L Cholesterol/HDL Ratio 7.4 (3.3-4.4) H Carcinoembryonic Antigen Pending Vitamin B12 Level 498 PG/ML (193-986) Folate 15.3 NG/ML (8.6-58.9) Thyroid Stimulating Hormone (TSH) 1.054 uiU/mL (0.358-3.740) Microbiology Date/Time Source Procedure Growth Status 10/10/19 05:50 Blood Blood Culture - Preliminary Gram Negative Vitaly Resulted 10/10/19 05:50 Blood Blood Culture - Preliminary Gram Negative Vitaly Resulted 10/10/19 05:50 Nasopharynx Coronavirus COVID-19 PCR ([facility]) - Final Complete 10/10/19 06:05 Urine,Clean Catch Urine Culture - Preliminary Gram Negative Vitaly Resulted 10/10/19 06:10 Rectum Received Intake and Output 10/10/19 10/11/19 19:00 07:00 Intake Total 360 ml Output Total 150 ml 300 ml Balance 210 ml -300 ml Intake Oral 360 ml Output Urine Total 150 ml 300 ml Objective General: No acute distress, awake and alert HEENT: NCAT, sclera anicteric, PERRL, EOMI. Neck: Supple, no significant jugular venous distention, Lungs: Fair inspiratory effort, decreased air at the bases no Wheeze or Rales. Heart: Regular rate and rhythm, normal S1/S2, no murmurs/gallops Abdomen: soft, lower quadrant tenderness, nondistended. Normoactive bowel sounds , morbid obesity. / Rectal: Refused and deferred. Extremities: No Cyanosis , clubbing, decreased edema. Neuro: A&O x 3, Able to move all extremities Skin: warm, no rash, Psych: Normal mood and affect Assessment/Plan Assessment/Plan ASSESSMENT: This is a 74-year-old female. 1. Sepsis / GNR Bacteremia most likely due to UTI. 2. Probable pyelonephritis. 3. Altered mental status most likely due to toxic Metabolic Encephalopathy. 4. Leukocytosis. 5. Elevated troponin. 6. Atrial fibrillation. 7. Diabetes type 2. 8. Hypertension. 9. Hyperthyroidism. 10. Coronary artery disease. 11. Renal failure. 12. Hypercholesterolemia. 13. Chronic lymphedema of the bilateral lower extremities. TREATMENT: 1. Fever/pyelonephritis. Patient has been started empirically on intravenous DC cefepime swith to Meropenem and vancomycin. Urine culture showed GNR. An Infectious Disease consultation has been obtained with Dr. Mays. We will follow recommendations of Infectious Disease. 2. Altered mental status / Toxic metabolic encephalopathy secondary to pyelonephritis/sepsis as above. 3. Leukocytosis. 4. Elevated troponin. A Cardiology consultation has been obtained with Dr. Arun Barker. 5. Atrial fibrillation. Continue Coumadin as above. A Cardiology consultation has been obtained with Dr. Arun Barker. 6. Diabetes type 2. NovoLog sliding scale has been instituted. 7. Hypertension. Patient is currently hypotensive. Hold amlodipine as above. 8. Hyperthyroidism. Continue methimazole as above. 9. Coronary artery disease. Patient has elevated troponin. A Cardiology consultation has been obtained with Dr. Arun Barker. 10. Renal failure. A Nephrology consultation has been obtained with Dr. Pantera Wallace. 11. Hypercholesterolemia. Continue simvastatin as above. 12. Chronic lymphedema of bilateral lower extremities. Aleksandr Vega MD Oct 11, 2019 15:59
[2019-10-11 16:00] VITALS: BP 115/70
[2019-10-11] MEDS ORDERED: Warfarin Sodium 2.5mg ORAL SCH ×3 (17:00)
[2019-10-11] MEDS: Meropenem 500 MG in NS 55 ML IVPB SCH (17:26)
[2019-10-11] MEDS ORDERED: Cefepime HCl 1 GM in D5W 55 ML IVPB SCH ×4 (18:00)
--- NOTE | 2019-10-11 18:19 | Cardiology Progress Note ---
Assessment/Plan Assessment/Plan 1. Permanent atrial fibrillation, on anticoagulation. 2. Toxic-metabolic encephalopathy. 3. Urinary tract infection, question pyelonephritis. 4. Diabetes mellitus. 5. Hypertension history. 6. Morbid obesity. 7. Myocardial infarction. 8. Acute on chronic renal insufficiency. 9. Coagulopathy secondary to Coumadin. 10. Bacteremia gnr 11. Iron def 12 RV hypokinesis and enlargment covid neg x1 still in isolation until removed by ID after their review trop increased this am no echo report yet i just reviewed soem of the echo images the rv hypo and somewhat dilated needs venous duplex and may be ctpa vs v/q inr sub therapeutic at admission so possiblity of PE inr nwo almost therapeutic but will dc coumadin start on heparin no respiratory issuw bp seems fine sat are ok 96-98% room air repeat trop in am d/w rn d/w dr al wbc is sig elelvated in light of bacteremia iv abx Subjective Subjective awake, alert, responsive, denies any chest pain or shortness of breath, denies any fever or chills, complained about lower abdominal pain. Objective Last 24 Hour Vital Signs Date Time Temp Pulse Resp B/P (MAP) Pulse Ox O2 Delivery O2 Flow Rate FiO2 10/11/19 16:00 97.6 83 17 115/70 (85) 96 10/11/19 12:00 88 10/11/19 12:00 98.1 85 18 126/79 (95) 98 10/11/19 11:41 82 126/59 10/11/19 09:00 Room Air 10/11/19 08:00 97.0 94 18 133/80 (97) 99 10/11/19 08:00 95 10/11/19 04:00 98.3 91 20 108/69 (82) 97 10/11/19 04:00 Room Air 10/11/19 04:00 94 10/11/19 00:00 97.8 89 20 112/65 (81) 98 10/11/19 00:00 Room Air 10/11/19 00:00 78 10/10/19 20:14 81 119/69 10/10/19 20:00 97.6 89 20 116/68 (84) 97 10/10/19 20:00 86 10/10/19 20:00 Room Air Intake and Output 10/10/19 10/11/19 19:00 07:00 Intake Total 360 ml Output Total 150 ml 300 ml Balance 210 ml -300 ml Intake Oral 360 ml Output Urine Total 150 ml 300 ml Laboratory Tests Test 10/11/19 04:00 10/11/19 06:10 Urine Color Yellow Urine Appearance Slightly cloudy Urine pH 5 (4.5-8.0) Urine Specific [place] 1.020 (1.005-1.035) Urine Protein 3+ (NEGATIVE) H Urine Glucose (UA) Negative (NEGATIVE) Urine Ketones 1+ (NEGATIVE) H Urine Blood 5+ (NEGATIVE) H Urine Nitrite Negative (NEGATIVE) Urine Bilirubin Negative (NEGATIVE) Urine Urobilinogen 1 MG/DL (0.0-1.0) H Urine Leukocyte Esterase 3+ (NEGATIVE) H Urine RBC 5-10 /HPF (0 - 2) H Urine WBC 60-80 /HPF (0 - 2) H Urine Squamous Epithelial Cells Few /LPF (NONE/OCC) Urine Bacteria Few /HPF (NONE) White Blood Count 32.5 K/UL (4.8-10.8) *H Red Blood Count 3.89 M/UL (4.20-5.40) L Hemoglobin 10.4 G/DL (12.0-16.0) L Hematocrit 31.5 % (37.0-47.0) L Mean Corpuscular Volume 81 FL (80-99) Mean Corpuscular Hemoglobin 26.7 PG (27.0-31.0) L Mean Corpuscular Hemoglobin Concent 33.0 G/DL (32.0-36.0) Red Cell Distribution Width 13.8 % (11.6-14.8) Platelet Count 196 K/UL (150-450) Mean Platelet Volume 8.0 FL (6.5-10.1) Neutrophils (%) (Auto) % (45.0-75.0) Lymphocytes (%) (Auto) % (20.0-45.0) Monocytes (%) (Auto) % (1.0-10.0) Eosinophils (%) (Auto) % (0.0-3.0) Basophils (%) (Auto) % (0.0-2.0) Differential Total Cells Counted 100 Neutrophils % (Manual) 87 % (45-75) H Lymphocytes % (Manual) 4 % (20-45) L Monocytes % (Manual) 2 % (1-10) Eosinophils % (Manual) 1 % (0-3) Basophils % (Manual) 0 % (0-2) Band Neutrophils 6 % (0-8) Other Cell Type Pathologist review Platelet Estimate Adequate Platelet Morphology Normal Hypochromasia 1+ Erythrocyte Sedimentation Rate 105 MM/HR (0-30) H Reticulocyte Count 0.5 % (0.5-2.0) Prothrombin Time 20.6 SEC (9.30-11.50) H Prothromb Time International Ratio 2.0 (0.9-1.1) H Activated Partial Thromboplast Time 40 SEC (23-33) H Sodium Level 139 MMOL/L (136-145) Potassium Level 3.4 MMOL/L (3.5-5.1) L Chloride Level 102 MMOL/L (98-107) Carbon Dioxide Level 25 MMOL/L (21-32) Anion Gap 12 mmol/L (5-15) Blood Urea Nitrogen 52 mg/dL (7-18) H Creatinine 3.2 MG/DL (0.55-1.30) H Estimat Glomerular Filtration Rate 17.2 mL/min (>60) Glucose Level 171 MG/DL (74-106) H Lactic Acid Level 1.80 mmol/L (0.4-2.0) Uric Acid 7.6 MG/DL (2.6-7.2) H Calcium Level 8.6 MG/DL (8.5-10.1) Phosphorus Level 4.0 MG/DL (2.5-4.9) Magnesium Level 1.7 MG/DL (1.8-2.4) L Iron Level 7 ug/dL (50-175) L Total Iron Binding Capacity 243 ug/dL (250-450) L Percent Iron Saturation 3 % (15-50) L Unsaturated Iron Binding 236 ug/dL (112-346) Total Bilirubin 0.4 MG/DL (0.2-1.0) Gamma Glutamyl Transpeptidase 43 U/L (5-85) Aspartate Amino Transf (AST/SGOT) 65 U/L (15-37) H Alanine Aminotransferase (ALT/SGPT) 25 U/L (12-78) Alkaline Phosphatase 92 U/L (46-116) Lactate Dehydrogenase 237 U/L (81-234) H Total Creatine Kinase 844 U/L (26-308) H Troponin I 7.131 ng/mL (0.000-0.056) C-Reactive Protein, Quantitative 29.0 mg/dL (0.00-0.90) H Pro-B-Type Natriuretic Peptide 66764 pg/mL (0-125) H Total Protein 7.3 G/DL (6.4-8.2) Albumin 2.6 G/DL (3.4-5.0) L Globulin 4.7 g/dL Albumin/Globulin Ratio 0.6 (1.0-2.7) L Triglycerides Level 130 MG/DL (30-150) Cholesterol Level 96 MG/DL (< 200) LDL Cholesterol 40 mg/dL (<100) HDL Cholesterol 13 MG/DL (40-60) L Cholesterol/HDL Ratio 7.4 (3.3-4.4) H Carcinoembryonic Antigen Pending Vitamin B12 Level 498 PG/ML (193-986) Folate 15.3 NG/ML (8.6-58.9) Thyroid Stimulating Hormone (TSH) 1.054 uiU/mL (0.358-3.740) Microbiology Date/Time Source Procedure Growth Status 10/10/19 05:50 Blood Blood Culture - Preliminary Gram Negative Vitaly Resulted 10/10/19 05:50 Blood Blood Culture - Preliminary Gram Negative Vitaly Resulted 10/10/19 05:50 Nasopharynx Coronavirus COVID-19 PCR ([facility]) - Final Complete 10/10/19 06:05 Urine,Clean Catch Urine Culture - Preliminary Gram Negative Vitaly Resulted 10/10/19 06:10 Rectum Received Objective Neck: Supple, no significant jugular venous distention, Lungs: Fair inspiratory effort, decreased air at the bases no Wheeze or Rales. Heart: Regular rate and rhythm, normal S1/S2, no murmurs/gallops Abdomen: soft, lower quadrant tenderness, nondistended. Normoactive bowel sounds , morbid obesity. / Rectal: Refused and deferred. Extremities: No Cyanosis , clubbing, decreased edema Arun Barker MD Oct 11, 2019 18:19
[2019-10-11] MEDS ORDERED: Heparin 5000 units/ml inj IV SCH (19:25)
[2019-10-11 19:33] LABS: HEMATOCRIT 33.1 % (37.0-47.0); HEMOGLOBIN 10.1 G/DL (12.0-16.0); MEAN CORPUSCULAR VOLUME 88 FL (80-99); PLATELET COUNT 179 K/UL (150-450); RED BLOOD COUNT 3.77 M/UL (4.20-5.40); RED CELL DISTRIBUTION WIDTH 15.5 % (11.6-14.8)
[2019-10-11 19:45] LABS: WHITE BLOOD COUNT 27.2 K/UL (4.8-10.8)
--- NOTE | 2019-10-11 19:45 | NUR ---
NURSE NOTES: Received patient in bed, awake, alert, oriented x4 but forgetful, on room air, patient has F/C 16 FR, secured, draining well. Patient is noted with a DVT, per Dr. Barker Heparin drip is ordered. IV site is clean dry and intact. Lab called and reported WBC is 27.2, is notified. Call light is within reach, bed is lowered, locked, alarm is on. Will continue to monitor for comfort and safety.
[2019-10-11 20:00] VITALS: BP 124/74
--- NOTE | 2019-10-11 20:05 | NUR ---
HAND-OFF: Report given to Jaime/RUTHANN, pt in stable condition, will be starting heparin drip tonight, Pt will be swabed for covid.
[2019-10-11] MEDS: Heparin 25,000u/D5W 500ml 500 ML IV SCH (20:56)
[2019-10-11] MEDS ORDERED: Atorvastatin 20mg tab ORAL SCH ×2 (21:00)
[2019-10-12 00:34] VITALS: BP 129/78
[2019-10-12 03:33] LABS: HEMATOCRIT 29.9 % (37.0-47.0); HEMOGLOBIN 10.6 G/DL (12.0-16.0); MEAN CORPUSCULAR VOLUME 80 FL (80-99); PLATELET COUNT 189 K/UL (150-450); RED BLOOD COUNT 3.76 M/UL (4.20-5.40); RED CELL DISTRIBUTION WIDTH 13.3 % (11.6-14.8)
[2019-10-12 03:39] LABS: WHITE BLOOD COUNT 28.4 K/UL (4.8-10.8)
[2019-10-12 03:44] LABS: ALANINE AMINOTRANSFERASE 21 U/L (12-78); ALBUMIN 2.4 G/DL (3.4-5.0); ALBUMIN/GLOBULIN RATIO 0.5 (1.0-2.7); ALKALINE PHOSPHATASE 93 U/L (46-116); ANION GAP 12 mmol/L (5-15); ASPARTATE AMINO TRANSFERASE 58 U/L (15-37); BILIRUBIN,TOTAL 0.6 MG/DL (0.2-1.0); BLOOD UREA NITROGEN 56 mg/dL (7-18); CALCIUM 8.8 MG/DL (8.5-10.1); CARBON DIOXIDE 24 MMOL/L (21-32); CHLORIDE 101 MMOL/L (98-107); CREATININE 3.2 MG/DL (0.55-1.30); POTASSIUM 3.6 MMOL/L (3.5-5.1); SODIUM 137 MMOL/L (136-145)
[2019-10-12 03:53] LABS: CREATINE KINASE 880 U/L (26-308); GAMMA GLUTAMYL TRANSPEPTIDASE 43 U/L (5-85); PHOSPHORUS 4.1 MG/DL (2.5-4.9)
[2019-10-12 04:00] VITALS: BP 129/87
--- NOTE | 2019-10-12 04:20 | NUR ---
NURSE NOTES: Lab reported WBC-28.4, troponin-5.142, PTT -90, no changes to heparin drip. CN is aware, was notified.
[2019-10-12] MEDS: Meropenem 500 MG in NS 55 ML IVPB SCH ×2 (04:55→17:52)
[2019-10-12] MEDS: NovoLOG Insulin Flexpen SUBQ SCH ×4 (06:12→21:00)
--- NOTE | 2019-10-12 07:11 | NUR ---
HAND-OFF: Report given to Kristy BEAVERS.
--- NOTE | 2019-10-12 07:35 | NUR ---
NURSE NOTES: pt in bed resting, on sharepoint manager no signs of cardiac or respiratory distress. call light next to pt. bed in lowest postion . no complains of pain. AOx4. will continue to monitor pt.
[2019-10-12 08:36] VITALS: BP 140/80
[2019-10-12] MEDS ORDERED: Vancomycin 1.5gm/NS Premix q24h IVPB ONE (09:00)
[2019-10-12] MEDS: Aspirin EC 81mg tab ORAL SCH (09:12)
[2019-10-12] MEDS: Docusate 100mg cap ORAL SCH ×3 (09:13→17:52)
[2019-10-12] MEDS: Pantoprazole Inj IVP SCH ×2 (09:13→21:31)
[2019-10-12] MEDS ORDERED: NS 275ml ONE (10:13)
[2019-10-12] MEDS ORDERED: Tubing IV Secondary IV ONE (10:13)
[2019-10-12] MEDS ORDERED: Imdur 30mg tab ORAL SCH (11:15)
--- NOTE | 2019-10-12 11:15 | Nephrology Progress Note ---
Assessment/Plan Problem List: (1) Renal failure (ARF), acute on chronic (2) Diabetes mellitus (3) Morbid obesity (4) Chronic atrial fibrillation (5) History of DVT (deep vein thrombosis) (6) Anemia (7) NSTEMI (non-ST elevated myocardial infarction) (8) Sepsis (9) Pyelonephritis Assessment Renal failure, most likely acute on chronic. Sepsis, leukocytosis, fever, suspected 2019 novel coronavirus infection. Encephalopathy most likely toxic metabolic UTI/pyelonephritis Anemia Atrial fibrillation chronic, with fast ventricular rate. Diabetes mellitus Morbid obesity/limited mobility History of DVT Elevated troponin I Lactic acidosis Plan October 11: Statins stopped due to worsening LFTs. 1 dose of Plavix given. Imdur started. Serum creatinine stable. Continue per cardiology. Continue to monitor renal parameters and CPK. Monitor troponin I and CPK Aspirin, Coreg ,nitrate for elevated troponin Antibiotics Echocardiogram results noted Kidney ultrasound results pending Monitor urine output and renal parameters Keep the blood pressure and blood sugar in check Coumadin for DVT and atrial fibrillation IV Protonix Subjective ROS Limited/Unobtainable: No Constitutional: Reports: malaise, weakness Objective Objective Last 24 Hour Vital Signs Date Time Temp Pulse Resp B/P (MAP) Pulse Ox O2 Delivery O2 Flow Rate FiO2 10/12/19 09:12 100 140/80 10/12/19 08:42 Room Air 10/12/19 08:36 99.5 100 18 140/80 (100) 93 10/12/19 04:00 83 10/12/19 04:00 97.8 78 20 129/87 (101) 98 10/12/19 00:34 97.4 74 18 129/78 (95) 98 10/12/19 00:00 74 10/11/19 20:57 78 122/74 10/11/19 20:00 98.7 74 18 124/74 (91) 98 10/11/19 20:00 90 10/11/19 16:00 97.6 83 17 115/70 (85) 96 10/11/19 16:00 92 10/11/19 12:00 88 10/11/19 12:00 98.1 85 18 126/79 (95) 98 10/11/19 11:41 82 126/59 Intake and Output 10/11/19 10/12/19 19:00 07:00 Output Total 800 ml Balance -800 ml Output Urine Total 800 ml Laboratory Tests 10/11/19 19:20: White Blood Count 27.2*H, Red Blood Count 3.77L, Hemoglobin 10.1L, Hematocrit 33.1L, Mean Corpuscular Volume 88#, Mean Corpuscular Hemoglobin 26.8L, Mean Corpuscular Hemoglobin Concent 30.6L, Red Cell Distribution Width 15.5H, Platelet Count 179, Mean Platelet Volume 10.8H, Neutrophils (%) (Auto) , Lymphocytes (%) (Auto) , Monocytes (%) (Auto) , Eosinophils (%) (Auto) , Basophils (%) (Auto) , Differential Total Cells Counted 100, Neutrophils % ( Manual) 85H, Lymphocytes % (Manual) 4L, Monocytes % (Manual) 3, Eosinophils % ( Manual) 1, Basophils % (Manual) 0, Band Neutrophils 7, Platelet Estimate Adequate, Platelet Morphology Normal, Hypochromasia 1+, Anisocytosis 1+, Activated Partial Thromboplast Time 40H 10/12/19 03:15: White Blood Count 28.4*H, Red Blood Count 3.76L, Hemoglobin 10.6L, Hematocrit 29.9L, Mean Corpuscular Volume 80#, Mean Corpuscular Hemoglobin 28.1, Mean Corpuscular Hemoglobin Concent 35.2, Red Cell Distribution Width 13.3, Platelet Count 189, Mean Platelet Volume 8.2, Neutrophils (%) (Auto) , Lymphocytes (%) ( Auto) , Monocytes (%) (Auto) , Eosinophils (%) (Auto) , Basophils (%) (Auto) , Differential Total Cells Counted 100, Neutrophils % (Manual) 92H, Lymphocytes % (Manual) 5L, Monocytes % (Manual) 3, Eosinophils % (Manual) 0, Basophils % ( Manual) 0, Band Neutrophils 0, Platelet Estimate Adequate, Platelet Morphology Normal, Activated Partial Thromboplast Time 90H, Microcytosis 1+, Sodium Level 137, Potassium Level 3.6, Chloride Level 101, Carbon Dioxide Level 24, Anion Gap 12, Blood Urea Nitrogen 56H, Creatinine 3.2H, Estimat Glomerular Filtration Rate 17.2, Glucose Level 144H, Uric Acid 7.5H, Calcium Level 8.8, Phosphorus Level 4.1, Magnesium Level 1.7L, Total Bilirubin 0.6, Gamma Glutamyl Transpeptidase 43, Aspartate Amino Transf (AST/SGOT) 58H, Alanine Aminotransferase (ALT/SGPT) 21, Alkaline Phosphatase 93, Total Creatine Kinase 880H, Troponin I 5.142H, C-Reactive Protein, Quantitative 26.7H, Pro-B-Type Natriuretic Peptide 34033Q, Total Protein 7.1, Albumin 2.4L, Globulin 4.7, Albumin/Globulin Ratio 0.5L, Random Vancomycin Level 12.6 10/12/19 09:45: Erythrocyte Sedimentation Rate [Pending] Height (Feet): 5 Height (Inches): 3.00 Weight (Pounds): 325 General Appearance: no apparent distress, lethargic Cardiovascular: tachycardia Respiratory/Chest: decreased breath sounds Abdomen: soft, other - Obese Pantera Wallace MD Oct 12, 2019 11:15
--- NOTE | 2019-10-12 11:30 | Cardiology Progress Note ---
Assessment/Plan Problem List: (1) Morbid obesity (2) Diabetes mellitus (3) Chronic atrial fibrillation (4) NSTEMI (non-ST elevated myocardial infarction) (5) Elevated troponin I level (6) Suspected 2019 novel coronavirus infection (7) Pyelonephritis (8) Sepsis Status: stable, progressing Status Narrative Urosepsis - urine culture + e coli and bld cx + gm negative vitaly ( id pending) . Remains w/ leukocytosis, slight dec from adm. Management per ID AF - permanent NonSTEMI - Troponin levels downtrending. EKG with changes suggesting old anterior infarct, but ECHO reporting nl wall motion and ef. Possibly type 2 AR in setting of sepsis. no anginal sx L arm pain - c/w musculoskeletal origin CKD DM Assessment/Plan Continue iv abx per ID. Check final culture results. Anticoagulation and rate control for permanent AF asa, plavix and b idalia for CAD. ? statin Noninvasive w/u vs cardiac cath when stable from ID standpoint, to evaluate CAD , ? need for revascularization Subjective ROS Limited/Unobtainable: No Subjective Cardiology for Dr. Barker. Mrs Funk is awake/ alert. She has L arm pain with movement. No chest pain. Cannot recall details of events leading to hospitalization Objective Last 24 Hour Vital Signs Date Time Temp Pulse Resp B/P (MAP) Pulse Ox O2 Delivery O2 Flow Rate FiO2 10/12/19 09:12 100 140/80 10/12/19 08:42 Room Air 10/12/19 08:36 99.5 100 18 140/80 (100) 93 10/12/19 04:00 83 10/12/19 04:00 97.8 78 20 129/87 (101) 98 10/12/19 00:34 97.4 74 18 129/78 (95) 98 10/12/19 00:00 74 10/11/19 20:57 78 122/74 10/11/19 20:00 98.7 74 18 124/74 (91) 98 10/11/19 20:00 90 10/11/19 16:00 97.6 83 17 115/70 (85) 96 10/11/19 16:00 92 10/11/19 12:00 88 10/11/19 12:00 98.1 85 18 126/79 (95) 98 10/11/19 11:41 82 126/59 General Appearance: WD/WN, alert, obese EENT: PERRL/EOMI Neck: supple, no JVD Rhythm: Afib Cardiovascular: normal rate, no gallop/murmur, irregularly irregular Respiratory/Chest: lungs clear Abdomen: normal bowel sounds, non tender, soft Extremities: no swelling Intake and Output 10/11/19 10/12/19 19:00 07:00 Output Total 800 ml Balance -800 ml Output Urine Total 800 ml Laboratory Tests Test 10/11/19 19:20 10/12/19 03:15 10/12/19 09:45 White Blood Count 27.2 K/UL (4.8-10.8) *H 28.4 K/UL (4.8-10.8) *H Red Blood Count 3.77 M/UL (4.20-5.40) L 3.76 M/UL (4.20-5.40) L Hemoglobin 10.1 G/DL (12.0-16.0) L 10.6 G/DL (12.0-16.0) L Hematocrit 33.1 % (37.0-47.0) L 29.9 % (37.0-47.0) L Mean Corpuscular Volume 88 FL (80-99) # 80 FL (80-99) # Mean Corpuscular Hemoglobin 26.8 PG (27.0-31.0) L 28.1 PG (27.0-31.0) Mean Corpuscular Hemoglobin Concent 30.6 G/DL (32.0-36.0) L 35.2 G/DL (32.0-36.0) Red Cell Distribution Width 15.5 % (11.6-14.8) H 13.3 % (11.6-14.8) Platelet Count 179 K/UL (150-450) 189 K/UL (150-450) Mean Platelet Volume 10.8 FL (6.5-10.1) H 8.2 FL (6.5-10.1) Neutrophils (%) (Auto) % (45.0-75.0) % (45.0-75.0) Lymphocytes (%) (Auto) % (20.0-45.0) % (20.0-45.0) Monocytes (%) (Auto) % (1.0-10.0) % (1.0-10.0) Eosinophils (%) (Auto) % (0.0-3.0) % (0.0-3.0) Basophils (%) (Auto) % (0.0-2.0) % (0.0-2.0) Differential Total Cells Counted 100 100 Neutrophils % (Manual) 85 % (45-75) H 92 % (45-75) H Lymphocytes % (Manual) 4 % (20-45) L 5 % (20-45) L Monocytes % (Manual) 3 % (1-10) 3 % (1-10) Eosinophils % (Manual) 1 % (0-3) 0 % (0-3) Basophils % (Manual) 0 % (0-2) 0 % (0-2) Band Neutrophils 7 % (0-8) 0 % (0-8) Platelet Estimate Adequate Adequate Platelet Morphology Normal Normal Hypochromasia 1+ Anisocytosis 1+ Activated Partial Thromboplast Time 40 SEC (23-33) H 90 SEC (23-33) H Microcytosis 1+ Sodium Level 137 MMOL/L (136-145) Potassium Level 3.6 MMOL/L (3.5-5.1) Chloride Level 101 MMOL/L (98-107) Carbon Dioxide Level 24 MMOL/L (21-32) Anion Gap 12 mmol/L (5-15) Blood Urea Nitrogen 56 mg/dL (7-18) H Creatinine 3.2 MG/DL (0.55-1.30) H Estimat Glomerular Filtration Rate 17.2 mL/min (>60) Glucose Level 144 MG/DL (74-106) H Uric Acid 7.5 MG/DL (2.6-7.2) H Calcium Level 8.8 MG/DL (8.5-10.1) Phosphorus Level 4.1 MG/DL (2.5-4.9) Magnesium Level 1.7 MG/DL (1.8-2.4) L Total Bilirubin 0.6 MG/DL (0.2-1.0) Gamma Glutamyl Transpeptidase 43 U/L (5-85) Aspartate Amino Transf (AST/SGOT) 58 U/L (15-37) H Alanine Aminotransferase (ALT/SGPT) 21 U/L (12-78) Alkaline Phosphatase 93 U/L (46-116) Total Creatine Kinase 880 U/L (26-308) H Troponin I 5.142 ng/mL (0.000-0.056) C-Reactive Protein, Quantitative 26.7 mg/dL (0.00-0.90) H Pro-B-Type Natriuretic Peptide 28439 pg/mL (0-125) H Total Protein 7.1 G/DL (6.4-8.2) Albumin 2.4 G/DL (3.4-5.0) L Globulin 4.7 g/dL Albumin/Globulin Ratio 0.5 (1.0-2.7) L Random Vancomycin Level 12.6 ug/mL Erythrocyte Sedimentation Rate Pending Microbiology Date/Time Source Procedure Growth Status 10/10/19 05:50 Blood Blood Culture - Preliminary Gram Negative Vitaly Resulted 10/10/19 05:50 Blood Blood Culture - Preliminary Gram Negative Vitaly Resulted 10/10/19 06:10 Nasal Nares MRSA Culture - Final NO METHICILLIN RESISTANT STAPH AUREUS... Complete 10/10/19 05:50 Nasopharynx Coronavirus COVID-19 PCR ([facility]) - Final Complete 10/11/19 04:00 Urine,Clean Catch Urine Culture - Preliminary NO GROWTH AFTER 24 HOURS Resulted 10/10/19 06:05 Urine,Clean Catch Urine Culture - Final Escherichia Coli Complete 10/10/19 06:10 Rectum - Final NO CARBAPENEM-RESISTANT ENTEROBACTERI... Complete 10/10/19 06:10 Rectum VRE Culture - Final NO VANCOMYCIN RESISTANT ENTEROCOCCUS ... Complete Juliet Biswas MD Oct 12, 2019 11:30
[2019-10-12 12:00] VITALS: BP 147/78
--- NOTE | 2019-10-12 14:26 | Internal Med Progress Note ---
Subjective Date of Service: Oct 12, 2019 Physician Name Johny Blankenship Attending Physician Aleksandr Vega MD Current Medications Medications (Trade) Dose Ordered Sig/Adria Route PRN Reason Start Time Stop Time Status Last Admin Dose Admin Acetaminophen (Tylenol) 650 mg Q4H PRN ORAL fever 10/11/19 08:30 11/09/19 08:29 10/11/19 09:24 Albuterol/ Ipratropium (Albuterol/ Ipratropium) 3 ml Q4H PRN HHN Shortness of Breath 10/11/19 08:30 10/15/19 08:29 Aspirin (Ecotrin) 81 mg DAILY ORAL 10/11/19 09:00 11/25/19 08:59 10/12/19 09:12 Carvedilol (Coreg) 3.125 mg EVERY 12 HOURS ORAL 10/11/19 09:00 11/09/19 20:59 10/12/19 09:12 Clonidine HCl (Catapres Tab) 0.1 mg Q4H PRN ORAL Blood pressure over 160 systol 10/11/19 08:30 01/08/20 08:29 Dextrose (Dextrose 50%) 25 ml Q30M PRN IV Hypoglycemia 10/11/19 08:30 01/08/20 11:29 Dextrose (Dextrose 50%) 50 ml Q30M PRN IV Hypoglycemia 10/11/19 08:30 01/08/20 11:29 Docusate Sodium (Colace) 100 mg THREE TIMES A DAY ORAL 10/11/19 09:00 11/09/19 17:59 10/12/19 09:13 Gabapentin (Neurontin) 100 mg THREE TIMES A DAY ORAL 10/11/19 09:00 11/09/19 12:59 10/12/19 13:03 Heparin Sodium/ Dextrose 500 ml @ 44.225 mls/ hr ADJUST PER PROTOCOL IV 10/11/19 19:25 11/10/19 19:24 10/11/19 20:56 Insulin Aspart (NovoLOG) BEFORE MEALS AND HS SUBQ 10/11/19 11:30 01/08/20 11:29 10/12/19 06:12 Isosorbide Mononitrate (Imdur) 30 mg DAILY ORAL 10/13/19 09:00 11/12/19 08:59 Meropenem 500 mg/ Sodium Chloride 55 ml @ 110 mls/hr Q12HR@0500,1700 IVPB 10/11/19 17:00 10/16/19 16:59 10/12/19 04:55 Nitroglycerin (Ntg) 0.4 mg Q5M PRN SL Prn Chest Pain 10/11/19 08:30 11/09/19 11:29 Ondansetron HCl (Zofran) 4 mg Q6H PRN IVP Nausea & Vomiting 10/11/19 08:30 11/09/19 08:29 Pantoprazole (Protonix) 40 mg EVERY 12 HOURS IVP 10/11/19 09:00 11/09/19 12:59 10/12/19 09:13 Polyethylene Glycol (Miralax) 17 gm DAILYPRN PRN ORAL Constipation 10/11/19 08:30 11/09/19 08:29 Temazepam (Restoril) 15 mg HSPRN PRN ORAL Insomnia 10/11/19 11:30 10/17/19 11:29 Vancomycin HCl ([facility] pharmacy to dose) 1 ea DAILY PRN MISC SEPSIS 10/11/19 09:00 11/09/19 11:59 Allergies: Coded Allergies: CODEINE (Verified Allergy, Unknown, 10/10/19) ROS Limited/Unobtainable: No Constitutional: Reports: no symptoms HEENT: Reports: no symptoms Cardiovascular: Reports: no symptoms Respiratory: Reports: no symptoms Gastrointestinal/Abdominal: Reports: no symptoms Genitourinary: Reports: no symptoms Neurologic/Psychiatric: Reports: no symptoms Subjective 74 YO F admitted with altered mental status and fever. Now UTI and sepsis. Cover for Int Pablo-Dr Vega Objective Last Vital Signs Date Time Temp Pulse Resp B/P (MAP) Pulse Ox O2 Delivery O2 Flow Rate FiO2 10/12/19 13:02 149/78 10/12/19 09:12 100 10/12/19 08:42 Room Air 10/12/19 08:36 99.5 18 93 Laboratory Tests Test 10/11/19 19:20 10/12/19 03:15 10/12/19 09:45 White Blood Count 27.2 K/UL (4.8-10.8) *H 28.4 K/UL (4.8-10.8) *H Red Blood Count 3.77 M/UL (4.20-5.40) L 3.76 M/UL (4.20-5.40) L Hemoglobin 10.1 G/DL (12.0-16.0) L 10.6 G/DL (12.0-16.0) L Hematocrit 33.1 % (37.0-47.0) L 29.9 % (37.0-47.0) L Mean Corpuscular Volume 88 FL (80-99) # 80 FL (80-99) # Mean Corpuscular Hemoglobin 26.8 PG (27.0-31.0) L 28.1 PG (27.0-31.0) Mean Corpuscular Hemoglobin Concent 30.6 G/DL (32.0-36.0) L 35.2 G/DL (32.0-36.0) Red Cell Distribution Width 15.5 % (11.6-14.8) H 13.3 % (11.6-14.8) Platelet Count 179 K/UL (150-450) 189 K/UL (150-450) Mean Platelet Volume 10.8 FL (6.5-10.1) H 8.2 FL (6.5-10.1) Neutrophils (%) (Auto) % (45.0-75.0) % (45.0-75.0) Lymphocytes (%) (Auto) % (20.0-45.0) % (20.0-45.0) Monocytes (%) (Auto) % (1.0-10.0) % (1.0-10.0) Eosinophils (%) (Auto) % (0.0-3.0) % (0.0-3.0) Basophils (%) (Auto) % (0.0-2.0) % (0.0-2.0) Differential Total Cells Counted 100 100 Neutrophils % (Manual) 85 % (45-75) H 92 % (45-75) H Lymphocytes % (Manual) 4 % (20-45) L 5 % (20-45) L Monocytes % (Manual) 3 % (1-10) 3 % (1-10) Eosinophils % (Manual) 1 % (0-3) 0 % (0-3) Basophils % (Manual) 0 % (0-2) 0 % (0-2) Band Neutrophils 7 % (0-8) 0 % (0-8) Platelet Estimate Adequate Adequate Platelet Morphology Normal Normal Hypochromasia 1+ Anisocytosis 1+ Activated Partial Thromboplast Time 40 SEC (23-33) H 90 SEC (23-33) H Microcytosis 1+ Sodium Level 137 MMOL/L (136-145) Potassium Level 3.6 MMOL/L (3.5-5.1) Chloride Level 101 MMOL/L (98-107) Carbon Dioxide Level 24 MMOL/L (21-32) Anion Gap 12 mmol/L (5-15) Blood Urea Nitrogen 56 mg/dL (7-18) H Creatinine 3.2 MG/DL (0.55-1.30) H Estimat Glomerular Filtration Rate 17.2 mL/min (>60) Glucose Level 144 MG/DL (74-106) H Uric Acid 7.5 MG/DL (2.6-7.2) H Calcium Level 8.8 MG/DL (8.5-10.1) Phosphorus Level 4.1 MG/DL (2.5-4.9) Magnesium Level 1.7 MG/DL (1.8-2.4) L Total Bilirubin 0.6 MG/DL (0.2-1.0) Gamma Glutamyl Transpeptidase 43 U/L (5-85) Aspartate Amino Transf (AST/SGOT) 58 U/L (15-37) H Alanine Aminotransferase (ALT/SGPT) 21 U/L (12-78) Alkaline Phosphatase 93 U/L (46-116) Total Creatine Kinase 880 U/L (26-308) H Troponin I 5.142 ng/mL (0.000-0.056) C-Reactive Protein, Quantitative 26.7 mg/dL (0.00-0.90) H Pro-B-Type Natriuretic Peptide 48805 pg/mL (0-125) H Total Protein 7.1 G/DL (6.4-8.2) Albumin 2.4 G/DL (3.4-5.0) L Globulin 4.7 g/dL Albumin/Globulin Ratio 0.5 (1.0-2.7) L Random Vancomycin Level 12.6 ug/mL Erythrocyte Sedimentation Rate 100 MM/HR (0-30) H Microbiology Date/Time Source Procedure Growth Status 10/10/19 05:50 Blood Blood Culture - Preliminary Gram Negative Vitaly Resulted 10/10/19 05:50 Blood Blood Culture - Preliminary Gram Negative Vitaly Resulted 10/10/19 06:10 Nasal Nares MRSA Culture - Final NO METHICILLIN RESISTANT STAPH AUREUS... Complete 10/10/19 05:50 Nasopharynx Coronavirus COVID-19 PCR ([facility]) - Final Complete 10/11/19 04:00 Urine,Clean Catch Urine Culture - Preliminary NO GROWTH AFTER 24 HOURS Resulted 10/10/19 06:05 Urine,Clean Catch Urine Culture - Final Escherichia Coli Complete 10/10/19 06:10 Rectum - Final NO CARBAPENEM-RESISTANT ENTEROBACTERI... Complete 10/10/19 06:10 Rectum VRE Culture - Final NO VANCOMYCIN RESISTANT ENTEROCOCCUS ... Complete Intake and Output 10/11/19 10/12/19 19:00 07:00 Output Total 800 ml Balance -800 ml Output Urine Total 800 ml Objective PHYSICAL EXAMINATION: GENERAL: Patient is well-developed, well-nourished, slightly obese female, in no apparent distress. HEENT: Eyes, pupils are equal and responsive to light and accommodation. Extraocular movements are intact. NECK: Supple. No lymphadenopathy. CHEST: Lungs are clear to auscultation bilaterally without wheezes or rales. CARDIOVASCULAR: Regular rate. S1, S2 are normal without murmurs, rubs, or gallops. ABDOMEN: Soft, nontender, nondistended. Positive bowel sounds. No evidence of hepatosplenomegaly. Currently no rebound or guarding noted. EXTREMITIES: Negative for clubbing, cyanosis, or edema. RECTAL/GENITAL: Not performed. NEUROLOGIC: Cranial nerves II to XII grossly intact without focal deficits Assessment/Plan Assessment/Plan ASSESSMENT: This is a 74-year-old female. 1. Sepsis=gram neg vitaly 2. UTI=E. Coli 3. Altered mental status. 4. Leukocytosis. 5. Elevated troponin. 6. Atrial fibrillation. 7. Diabetes type 2. 8. Hypertension. 9. Hyperthyroidism. 10. Coronary artery disease. 11. Renal failure. 12. Hypercholesterolemia. 13. Chronic lymphedema of the bilateral lower extremities. TREATMENT: 1. Urinary Tract infection-E. Coli ABX=meropenem. Infectious Disease=Dr. Mays. We will follow recommendations of Infectious Disease. 2. Sepsis=Gram neg vitaly Await culture and sensitivity result. Continue meropenem per ID. 3. Altered mental status. Resolved 4. Leukocytosis. Resolved 5. Elevated troponin. A Cardiology consultation has been obtained with Dr. Arun Barker. 6. Atrial fibrillation. Continue Coumadin as above. A Cardiology consultation has been obtained with Dr. Arun Barker. 7. Diabetes type 2. NovoLog sliding scale has been instituted. 8. Hypertension. Patient is currently hypotensive. Hold amlodipine as above. 9. Hyperthyroidism. Continue methimazole as above. 10. Coronary artery disease. Patient has elevated troponin. A Cardiology consultation has been obtained with Dr. Arun Barker. 11. Renal failure. A Nephrology consultation has been obtained with Dr. Pantera Wallace. 12. Hypercholesterolemia. Continue simvastatin as above. 13. Chronic lymphedema of bilateral lower extremities. Johny Blankenship MD Oct 12, 2019 14:26
[2019-10-12 16:00] VITALS: BP 125/87
--- NOTE | 2019-10-12 16:30 | Pulmonology Progress Note ---
Subjective ROS Limited/Unobtainable: No Constitutional: Reports: no symptoms HEENT: Repors: no symptoms Allergies: Coded Allergies: CODEINE (Verified Allergy, Unknown, 10/10/19) Objective Last 24 Hour Vital Signs Date Time Temp Pulse Resp B/P (MAP) Pulse Ox O2 Delivery O2 Flow Rate FiO2 10/12/19 16:00 98.6 95 18 125/87 (100) 95 10/12/19 13:02 149/78 10/12/19 12:00 86 10/12/19 12:00 98.6 96 18 147/78 (101) 96 10/12/19 09:12 100 140/80 10/12/19 08:42 Room Air 10/12/19 08:36 99.5 100 18 140/80 (100) 93 10/12/19 08:00 87 10/12/19 04:00 83 10/12/19 04:00 97.8 78 20 129/87 (101) 98 10/12/19 00:34 97.4 74 18 129/78 (95) 98 10/12/19 00:00 74 10/11/19 20:57 78 122/74 10/11/19 20:00 98.7 74 18 124/74 (91) 98 10/11/19 20:00 90 Intake and Output 10/11/19 10/12/19 19:00 07:00 Output Total 800 ml Balance -800 ml Output Urine Total 800 ml General Appearance: WD/WN, no acute distress HEENT: normocephalic Respiratory: chest wall non-tender, normal breath sounds Cardiovascular: normal peripheral pulses, normal rate Genitourinary: normal external genitalia Extremities: no clubbing Skin: no rash 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 Complete 10/10/19 05:50 Nasopharynx Coronavirus COVID-19 PCR ([facility]) - Final Complete 10/11/19 04:00 Urine,Clean Catch Urine Culture - Preliminary NO GROWTH AFTER 24 HOURS Resulted 10/10/19 06:05 Urine,Clean Catch Urine Culture - Final Escherichia Coli Complete 10/10/19 06:10 Rectum - Final NO CARBAPENEM-RESISTANT ENTEROBACTERI... Complete 10/10/19 06:10 Rectum VRE Culture - Final NO VANCOMYCIN RESISTANT ENTEROCOCCUS ... Complete Laboratory Tests 10/11/19 19:20: White Blood Count 27.2*H, Red Blood Count 3.77L, Hemoglobin 10.1L, Hematocrit 33.1L, Mean Corpuscular Volume 88#, Mean Corpuscular Hemoglobin 26.8L, Mean Corpuscular Hemoglobin Concent 30.6L, Red Cell Distribution Width 15.5H, Platelet Count 179, Mean Platelet Volume 10.8H, Neutrophils (%) (Auto) , Lymphocytes (%) (Auto) , Monocytes (%) (Auto) , Eosinophils (%) (Auto) , Basophils (%) (Auto) , Differential Total Cells Counted 100, Neutrophils % ( Manual) 85H, Lymphocytes % (Manual) 4L, Monocytes % (Manual) 3, Eosinophils % ( Manual) 1, Basophils % (Manual) 0, Band Neutrophils 7, Platelet Estimate Adequate, Platelet Morphology Normal, Hypochromasia 1+, Anisocytosis 1+, Activated Partial Thromboplast Time 40H 10/12/19 03:15: White Blood Count 28.4*H, Red Blood Count 3.76L, Hemoglobin 10.6L, Hematocrit 29.9L, Mean Corpuscular Volume 80#, Mean Corpuscular Hemoglobin 28.1, Mean Corpuscular Hemoglobin Concent 35.2, Red Cell Distribution Width 13.3, Platelet Count 189, Mean Platelet Volume 8.2, Neutrophils (%) (Auto) , Lymphocytes (%) ( Auto) , Monocytes (%) (Auto) , Eosinophils (%) (Auto) , Basophils (%) (Auto) , Differential Total Cells Counted 100, Neutrophils % (Manual) 92H, Lymphocytes % (Manual) 5L, Monocytes % (Manual) 3, Eosinophils % (Manual) 0, Basophils % ( Manual) 0, Band Neutrophils 0, Platelet Estimate Adequate, Platelet Morphology Normal, Activated Partial Thromboplast Time 90H, Microcytosis 1+, Sodium Level 137, Potassium Level 3.6, Chloride Level 101, Carbon Dioxide Level 24, Anion Gap 12, Blood Urea Nitrogen 56H, Creatinine 3.2H, Estimat Glomerular Filtration Rate 17.2, Glucose Level 144H, Uric Acid 7.5H, Calcium Level 8.8, Phosphorus Level 4.1, Magnesium Level 1.7L, Total Bilirubin 0.6, Gamma Glutamyl Transpeptidase 43, Aspartate Amino Transf (AST/SGOT) 58H, Alanine Aminotransferase (ALT/SGPT) 21, Alkaline Phosphatase 93, Total Creatine Kinase 880H, Troponin I 5.142H, C-Reactive Protein, Quantitative 26.7H, Pro-B-Type Natriuretic Peptide 14999W, Total Protein 7.1, Albumin 2.4L, Globulin 4.7, Albumin/Globulin Ratio 0.5L, Random Vancomycin Level 12.6 10/12/19 09:45: Erythrocyte Sedimentation Rate 100H 10/12/19 12:30: Stool Occult Blood [Pending] Current Medications Medications (Trade) Dose Ordered Sig/Adria Route PRN Reason Start Time Stop Time Status Last Admin Dose Admin Acetaminophen (Tylenol) 650 mg Q4H PRN ORAL fever 10/11/19 08:30 11/09/19 08:29 10/11/19 09:24 Albuterol/ Ipratropium (Albuterol/ Ipratropium) 3 ml Q4H PRN HHN Shortness of Breath 10/11/19 08:30 10/15/19 08:29 Aspirin (Ecotrin) 81 mg DAILY ORAL 10/11/19 09:00 11/25/19 08:59 10/12/19 09:12 Atorvastatin Calcium (Lipitor) 40 mg BEDTIME ORAL 10/12/19 21:00 01/10/20 20:59 Carvedilol (Coreg) 3.125 mg EVERY 12 HOURS ORAL 10/11/19 09:00 11/09/19 20:59 10/12/19 09:12 Clonidine HCl (Catapres Tab) 0.1 mg Q4H PRN ORAL Blood pressure over 160 systol 10/11/19 08:30 01/08/20 08:29 Dextrose (Dextrose 50%) 25 ml Q30M PRN IV Hypoglycemia 10/11/19 08:30 01/08/20 11:29 Dextrose (Dextrose 50%) 50 ml Q30M PRN IV Hypoglycemia 10/11/19 08:30 01/08/20 11:29 Docusate Sodium (Colace) 100 mg THREE TIMES A DAY ORAL 10/11/19 09:00 11/09/19 17:59 10/12/19 09:13 Gabapentin (Neurontin) 100 mg THREE TIMES A DAY ORAL 10/11/19 09:00 11/09/19 12:59 10/12/19 13:03 Heparin Sodium/ Dextrose 500 ml @ 44.225 mls/ hr ADJUST PER PROTOCOL IV 10/11/19 19:25 11/10/19 19:24 10/11/19 20:56 Insulin Aspart (NovoLOG) BEFORE MEALS AND HS SUBQ 10/11/19 11:30 01/08/20 11:29 10/12/19 06:12 Isosorbide Mononitrate (Imdur) 30 mg DAILY ORAL 10/13/19 09:00 11/12/19 08:59 Meropenem 500 mg/ Sodium Chloride 55 ml @ 110 mls/hr Q12HR@0500,1700 IVPB 10/11/19 17:00 10/16/19 16:59 10/12/19 04:55 Nitroglycerin (Ntg) 0.4 mg Q5M PRN SL Prn Chest Pain 10/11/19 08:30 11/09/19 11:29 Ondansetron HCl (Zofran) 4 mg Q6H PRN IVP Nausea & Vomiting 10/11/19 08:30 11/09/19 08:29 Pantoprazole (Protonix) 40 mg EVERY 12 HOURS IVP 10/11/19 09:00 11/09/19 12:59 10/12/19 09:13 Polyethylene Glycol (Miralax) 17 gm DAILYPRN PRN ORAL Constipation 10/11/19 08:30 11/09/19 08:29 Temazepam (Restoril) 15 mg HSPRN PRN ORAL Insomnia 10/11/19 11:30 10/17/19 11:29 Vancomycin HCl ([facility] pharmacy to dose) 1 ea DAILY PRN MISC SEPSIS 10/11/19 09:00 11/09/19 11:59 Assessment/Plan Problems: (1) Sepsis (2) NSTEMI (non-ST elevated myocardial infarction) (3) Renal failure (ARF), acute on chronic (4) Pyelonephritis (5) Suspected 2019 novel coronavirus infection (6) Atrial fibrillation with rapid ventricular response (7) Chronic atrial fibrillation (8) Limited mobility (9) Anemia (10) Diabetes mellitus (11) Morbid obesity Assessment/Plan salmeron culture Blood culture are positive for GNR, urine has Ecoli pt is afebrile now electrolytes supplement iv abx by ID renal studies, creatinine is stable now asa, plavix and b idalia f cardio suggest "Noninvasive w/u vs cardiac cath when stable from ID standpoint, to evaluate CAD," sliding scale diabetic diet renal studies dvt prophylaxis. Bandar Bronwlee MD Oct 12, 2019 16:30
--- NOTE | 2019-10-12 17:30 | NUR ---
NURSE NOTES: Reported to pharmacy, heparin stopped at around 1030. Per pharmacist, ok to start new bag at the same earlier rate of 15Units/kg/hr. and redraw PTT values (6hrs after 1738). Notified Doctor Zulay, no new orders were given.
[2019-10-12] MEDS: Heparin 25,000u/D5W 500ml 500 ML IV SCH (17:58)
--- NOTE | 2019-10-12 19:04 | Infectious Diseases Prog Note ---
Assessment/Plan Assessment/Plan Assessment: Severe Sepsis Probable PNA- r/o COVID - at RA -10/09 CXR: Mild interstitial congestion. Cannot rule out small left pleural effusion SARS-COV2 PCR neg UTI c/w bacteremia -u/a wbc tnct, nit neg, leuk +3; ucx >100k GNR -10/09 Bcx / GNR Fever; improving Leukocytosis; worsening Acute encephalopathy morbid obesity HTN Dm2 hx of UTI Afib on coumadin NH resident ([facility]) Plan: -Continue empiric IV Vancomycin #3 --will dc soon if no gram positive growth Meropenem #1 -10/10 SP cefepime #2 -10/09 SP Meropenem x1 -f/u cx -monitor CBC/CMP, temperatures -COVID19 isolation and testing; send 2nd sample -Bcx x2 -CXR am Thank you for consulting [facility]. Will continue to follow along with you. Discussed with RN. Subjective Allergies: Coded Allergies: CODEINE (Verified Allergy, Unknown, 10/10/19) Subjective Afebrile. on RA. had 6 beats of v tach today. poor appetite. stable leukocytosis. Objective Vital Signs Last 24 Hour Vital Signs Date Time Temp Pulse Resp B/P (MAP) Pulse Ox O2 Delivery O2 Flow Rate FiO2 10/12/19 16:00 98.6 95 18 125/87 (100) 95 10/12/19 13:02 149/78 10/12/19 12:00 86 10/12/19 12:00 98.6 96 18 147/78 (101) 96 10/12/19 09:12 100 140/80 10/12/19 08:42 Room Air 10/12/19 08:36 99.5 100 18 140/80 (100) 93 10/12/19 08:00 87 10/12/19 04:00 83 10/12/19 04:00 97.8 78 20 129/87 (101) 98 10/12/19 00:34 97.4 74 18 129/78 (95) 98 10/12/19 00:00 74 10/11/19 20:57 78 122/74 10/11/19 20:00 98.7 74 18 124/74 (91) 98 10/11/19 20:00 90 Height (Feet): 5 Height (Inches): 3.00 Weight (Pounds): 325 Microbiology Date/Time Source Procedure Growth Status 10/10/19 05:50 Blood Blood Culture - Preliminary Gram Negative Vitaly Resulted 10/10/19 05:50 Blood Blood Culture - Preliminary Gram Negative Vitaly Resulted 10/10/19 06:10 Nasal Nares MRSA Culture - Final NO METHICILLIN RESISTANT STAPH AUREUS... Complete 10/10/19 05:50 Nasopharynx Coronavirus COVID-19 PCR (YANE) - Final Complete 10/11/19 04:00 Urine,Clean Catch Urine Culture - Preliminary NO GROWTH AFTER 24 HOURS Resulted 10/10/19 06:05 Urine,Clean Catch Urine Culture - Final Escherichia Coli Complete 10/10/19 06:10 Rectum - Final NO CARBAPENEM-RESISTANT ENTEROBACTERI... Complete 10/10/19 06:10 Rectum VRE Culture - Final NO VANCOMYCIN RESISTANT ENTEROCOCCUS ... Complete Laboratory Tests Test 10/11/19 19:20 10/12/19 03:15 10/12/19 09:45 10/12/19 12:30 White Blood Count 27.2 K/UL (4.8-10.8) *H 28.4 K/UL (4.8-10.8) *H Red Blood Count 3.77 M/UL (4.20-5.40) L 3.76 M/UL (4.20-5.40) L Hemoglobin 10.1 G/DL (12.0-16.0) L 10.6 G/DL (12.0-16.0) L Hematocrit 33.1 % (37.0-47.0) L 29.9 % (37.0-47.0) L Mean Corpuscular Volume 88 FL (80-99) # 80 FL (80-99) # Mean Corpuscular Hemoglobin 26.8 PG (27.0-31.0) L 28.1 PG (27.0-31.0) Mean Corpuscular Hemoglobin Concent 30.6 G/DL (32.0-36.0) L 35.2 G/DL (32.0-36.0) Red Cell Distribution Width 15.5 % (11.6-14.8) H 13.3 % (11.6-14.8) Platelet Count 179 K/UL (150-450) 189 K/UL (150-450) Mean Platelet Volume 10.8 FL (6.5-10.1) H 8.2 FL (6.5-10.1) Neutrophils (%) (Auto) % (45.0-75.0) % (45.0-75.0) Lymphocytes (%) (Auto) % (20.0-45.0) % (20.0-45.0) Monocytes (%) (Auto) % (1.0-10.0) % (1.0-10.0) Eosinophils (%) (Auto) % (0.0-3.0) % (0.0-3.0) Basophils (%) (Auto) % (0.0-2.0) % (0.0-2.0) Differential Total Cells Counted 100 100 Neutrophils % (Manual) 85 % (45-75) H 92 % (45-75) H Lymphocytes % (Manual) 4 % (20-45) L 5 % (20-45) L Monocytes % (Manual) 3 % (1-10) 3 % (1-10) Eosinophils % (Manual) 1 % (0-3) 0 % (0-3) Basophils % (Manual) 0 % (0-2) 0 % (0-2) Band Neutrophils 7 % (0-8) 0 % (0-8) Platelet Estimate Adequate Adequate Platelet Morphology Normal Normal Hypochromasia 1+ Anisocytosis 1+ Activated Partial Thromboplast Time 40 SEC (23-33) H 90 SEC (23-33) H Microcytosis 1+ Sodium Level 137 MMOL/L (136-145) Potassium Level 3.6 MMOL/L (3.5-5.1) Chloride Level 101 MMOL/L (98-107) Carbon Dioxide Level 24 MMOL/L (21-32) Anion Gap 12 mmol/L (5-15) Blood Urea Nitrogen 56 mg/dL (7-18) H Creatinine 3.2 MG/DL (0.55-1.30) H Estimat Glomerular Filtration Rate 17.2 mL/min (>60) Glucose Level 144 MG/DL (74-106) H Uric Acid 7.5 MG/DL (2.6-7.2) H Calcium Level 8.8 MG/DL (8.5-10.1) Phosphorus Level 4.1 MG/DL (2.5-4.9) Magnesium Level 1.7 MG/DL (1.8-2.4) L Total Bilirubin 0.6 MG/DL (0.2-1.0) Gamma Glutamyl Transpeptidase 43 U/L (5-85) Aspartate Amino Transf (AST/SGOT) 58 U/L (15-37) H Alanine Aminotransferase (ALT/SGPT) 21 U/L (12-78) Alkaline Phosphatase 93 U/L (46-116) Total Creatine Kinase 880 U/L (26-308) H Troponin I 5.142 ng/mL (0.000-0.056) C-Reactive Protein, Quantitative 26.7 mg/dL (0.00-0.90) H Pro-B-Type Natriuretic Peptide 15090 pg/mL (0-125) H Total Protein 7.1 G/DL (6.4-8.2) Albumin 2.4 G/DL (3.4-5.0) L Globulin 4.7 g/dL Albumin/Globulin Ratio 0.5 (1.0-2.7) L Random Vancomycin Level 12.6 ug/mL Erythrocyte Sedimentation Rate 100 MM/HR (0-30) H Stool Occult Blood Pending Current Medications Medications (Trade) Dose Ordered Sig/Adria Route PRN Reason Start Time Stop Time Status Last Admin Dose Admin Acetaminophen (Tylenol) 650 mg Q4H PRN ORAL fever 10/11/19 08:30 11/09/19 08:29 10/11/19 09:24 Albuterol/ Ipratropium (Albuterol/ Ipratropium) 3 ml Q4H PRN HHN Shortness of Breath 10/11/19 08:30 10/15/19 08:29 Aspirin (Ecotrin) 81 mg DAILY ORAL 10/11/19 09:00 11/25/19 08:59 10/12/19 09:12 Atorvastatin Calcium (Lipitor) 40 mg BEDTIME ORAL 10/12/19 21:00 01/10/20 20:59 Carvedilol (Coreg) 3.125 mg EVERY 12 HOURS ORAL 10/11/19 09:00 11/09/19 20:59 10/12/19 09:12 Clonidine HCl (Catapres Tab) 0.1 mg Q4H PRN ORAL Blood pressure over 160 systol 10/11/19 08:30 01/08/20 08:29 Dextrose (Dextrose 50%) 25 ml Q30M PRN IV Hypoglycemia 10/11/19 08:30 01/08/20 11:29 Dextrose (Dextrose 50%) 50 ml Q30M PRN IV Hypoglycemia 10/11/19 08:30 01/08/20 11:29 Docusate Sodium (Colace) 100 mg THREE TIMES A DAY ORAL 10/11/19 09:00 11/09/19 17:59 10/12/19 09:13 Gabapentin (Neurontin) 100 mg THREE TIMES A DAY ORAL 10/11/19 09:00 11/09/19 12:59 10/12/19 17:52 Heparin Sodium/ Dextrose 500 ml @ 44.225 mls/ hr ADJUST PER PROTOCOL IV 10/11/19 19:25 11/10/19 19:24 10/12/19 17:58 Insulin Aspart (NovoLOG) BEFORE MEALS AND HS SUBQ 10/11/19 11:30 01/08/20 11:29 10/12/19 18:01 Isosorbide Mononitrate (Imdur) 30 mg DAILY ORAL 10/13/19 09:00 11/12/19 08:59 Meropenem 500 mg/ Sodium Chloride 55 ml @ 110 mls/hr Q12HR@0500,1700 IVPB 10/11/19 17:00 10/16/19 16:59 10/12/19 17:52 Nitroglycerin (Ntg) 0.4 mg Q5M PRN SL Prn Chest Pain 10/11/19 08:30 11/09/19 11:29 Ondansetron HCl (Zofran) 4 mg Q6H PRN IVP Nausea & Vomiting 10/11/19 08:30 11/09/19 08:29 Pantoprazole (Protonix) 40 mg EVERY 12 HOURS IVP 10/11/19 09:00 11/09/19 12:59 10/12/19 09:13 Polyethylene Glycol (Miralax) 17 gm DAILYPRN PRN ORAL Constipation 10/11/19 08:30 11/09/19 08:29 Temazepam (Restoril) 15 mg HSPRN PRN ORAL Insomnia 10/11/19 11:30 10/17/19 11:29 Vancomycin HCl (Vanco pharmacy to dose) 1 ea DAILY PRN MISC SEPSIS 6/5/20 09:00 11/09/19 11:59 Harry Mitchell MD Oct 12, 2019 19:04
--- NOTE | 2019-10-12 19:08 | NUR ---
NURSE NOTES: reported to Dr. Biswas pt had 2 bits of Vtach, reported Potassium and Magnesium levels.
--- NOTE | 2019-10-12 19:13 | NUR ---
NURSE NOTES: Per doctor Zulay, magnesium will not be replaced even though is low, pt is on renal failure.
[2019-10-12 20:00] VITALS: BP 171/74
--- NOTE | 2019-10-12 20:00 | NUR ---
NURSE NOTES: Pt sitting up in bed, is awake, alert and oriented x4, appears comfortable. Denies pain at this time. Pt has swelling in bilateral lower extremities L>R. Pt previously had 6 beats of MD ravi aware. On heparin drip , running at 15 units/kg/hour, no bleeding noted. The next PTT is at 2338. will continue to monitor pt. She is sitting in bed, bed is locked in lowest position, side rails x2.
--- NOTE | 2019-10-12 20:30 | NUR ---
HAND-OFF: Report given to Fawn/joan, pt in stable condition, on heparin drip, ptt to be drawn 2338. Doctor is aware of pt 6 beats of Vtach.
[2019-10-12] MEDS: Atorvastatin 20mg tab ORAL SCH (21:30)
[2019-10-13] VITALS: BP 171/74
--- NOTE | 2019-10-13 01:16 | NUR ---
NURSE NOTES: Pt PTT at a therapeutic level. No rate change. Pt will have another PTT at 0400 with morning labs
[2019-10-13 04:00] VITALS: BP 117/68
[2019-10-13] MEDS: Meropenem 500 MG in NS 55 ML IVPB SCH ×2 (05:00→16:01)
[2019-10-13 05:37] LABS: HEMATOCRIT 28.6 % (37.0-47.0); HEMOGLOBIN 9.8 G/DL (12.0-16.0); MEAN CORPUSCULAR VOLUME 81 FL (80-99); PLATELET COUNT 197 K/UL (150-450); RED BLOOD COUNT 3.52 M/UL (4.20-5.40); RED CELL DISTRIBUTION WIDTH 13.2 % (11.6-14.8); WHITE BLOOD COUNT 18.5 K/UL (4.8-10.8)
--- NOTE | 2019-10-13 06:10 | NUR ---
NURSE NOTES: Pt is continued on heparin drip, PTT level drawn and awaiting if there will be a rate change. Currently rate is continued at 15 unit/kg/hour. No signs of bleeding. will wait for results of PTT
[2019-10-13 06:11] LABS: ALANINE AMINOTRANSFERASE 16 U/L (12-78); ALBUMIN 2.3 G/DL (3.4-5.0); ALBUMIN/GLOBULIN RATIO 0.5 (1.0-2.7); ALKALINE PHOSPHATASE 112 U/L (46-116); ANION GAP 12 mmol/L (5-15); ASPARTATE AMINO TRANSFERASE 40 U/L (15-37); BILIRUBIN,TOTAL 0.6 MG/DL (0.2-1.0); BLOOD UREA NITROGEN 54 mg/dL (7-18); CALCIUM 8.5 MG/DL (8.5-10.1); CARBON DIOXIDE 26 MMOL/L (21-32); CHLORIDE 100 MMOL/L (98-107); CHOLESTEROL 88 MG/DL (< 200); CREATININE 2.9 MG/DL (0.55-1.30); HDL CHOLESTEROL 22 MG/DL (40-60); PHOSPHORUS 3.6 MG/DL (2.5-4.9); POTASSIUM 3.5 MMOL/L (3.5-5.1); SODIUM 138 MMOL/L (136-145); TRIGLYCERIDES 64 MG/DL (30-150)
[2019-10-13] MEDS: NovoLOG Insulin Flexpen SUBQ SCH ×4 (06:30→21:00)
--- NOTE | 2019-10-13 07:10 | Pulmonology Progress Note ---
Subjective Allergies: Coded Allergies: CODEINE (Verified Allergy, Unknown, 10/10/19) Subjective remains in A fib rate controlled fevers at night, currently afebrile, leuk trending down, but still significant 18.5 on RA, pulse ox stable , no signs of resp distress Objective Last 24 Hour Vital Signs Date Time Temp Pulse Resp B/P (MAP) Pulse Ox O2 Delivery O2 Flow Rate FiO2 10/13/19 04:00 98.1 82 19 117/68 (84) 95 10/13/19 04:00 82 10/13/19 00:30 99.6 10/13/19 00:00 70 10/13/19 00:00 100.2 80 19 171/74 (106) 98 10/12/19 22:00 99.9 10/12/19 21:59 171/74 10/12/19 21:30 80 171/74 10/12/19 21:00 Room Air 10/12/19 20:00 100.2 80 19 171/74 (106) 98 10/12/19 19:15 65 18 95 Room Air 21 10/12/19 18:11 97 10/12/19 16:00 85 10/12/19 16:00 98.6 95 18 125/87 (100) 95 10/12/19 13:02 149/78 10/12/19 12:40 103 10/12/19 12:00 86 10/12/19 12:00 98.6 96 18 147/78 (101) 96 10/12/19 09:12 100 140/80 10/12/19 08:42 Room Air 10/12/19 08:36 99.5 100 18 140/80 (100) 93 10/12/19 08:00 87 Intake and Output 10/12/19 10/13/19 19:00 07:00 Intake Total 480 ml Output Total 725 ml 1000 ml Balance -245 ml -1000 ml Intake Oral 480 ml Output Urine Total 725 ml 1000 ml # Bowel Movements 1 General Appearance: WD/WN, no acute distress HEENT: normocephalic, atraumatic, anicteric, mucous membranes moist Respiratory: chest wall non-tender, normal breath sounds Cardiovascular: normal peripheral pulses, irregularly irregular - A fib with controlled HR Abdomen: normal bowel sounds, soft, non tender - obese Extremities: no clubbing, no edema Skin: no rash 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, alert, responsive Musculoskeletal: normal muscle bulk Microbiology Date/Time Source Procedure Growth Status 10/11/19 17:14 Blood Blood Culture - Preliminary NO GROWTH AFTER 24 HOURS Resulted 10/11/19 16:50 Blood Blood Culture - Preliminary NO GROWTH AFTER 24 HOURS Resulted 10/11/19 04:00 Urine,Clean Catch Urine Culture - Final Gram Negative Vitaly Complete Laboratory Tests 10/12/19 09:45: Erythrocyte Sedimentation Rate 100H 10/12/19 12:30: Stool Occult Blood Negative 10/12/19 23:55: Activated Partial Thromboplast Time 95H 10/13/19 04:30: White Blood Count 18.5H, Red Blood Count 3.52L, Hemoglobin 9.8L, Hematocrit 28.6L, Mean Corpuscular Volume 81, Mean Corpuscular Hemoglobin 27.7, Mean Corpuscular Hemoglobin Concent 34.1, Red Cell Distribution Width 13.2, Platelet Count 197, Mean Platelet Volume 8.2, Neutrophils (%) (Auto) , Lymphocytes (%) ( Auto) , Monocytes (%) (Auto) , Eosinophils (%) (Auto) , Basophils (%) (Auto) , Neutrophils % (Manual) [Pending], Lymphocytes % (Manual) [Pending], Platelet Estimate [Pending], Platelet Morphology [Pending], Sodium Level 138, Potassium Level 3.5, Chloride Level 100, Carbon Dioxide Level 26, Anion Gap 12, Blood Urea Nitrogen 54H, Creatinine 2.9H, Estimat Glomerular Filtration Rate 19.3, Glucose Level 146H, Uric Acid 8.0H, Calcium Level 8.5, Phosphorus Level 3.6, Magnesium Level 2.1, Total Bilirubin 0.6, Aspartate Amino Transf (AST/SGOT) 40H , Alanine Aminotransferase (ALT/SGPT) 16, Alkaline Phosphatase 112, Troponin I 2.149H, C-Reactive Protein, Quantitative 16.7H, Pro-B-Type Natriuretic Peptide 55588Q, Total Protein 7.0, Albumin 2.3L, Globulin 4.7, Albumin/Globulin Ratio 0.5L, Triglycerides Level 64, Cholesterol Level 88, LDL Cholesterol 51, HDL Cholesterol 22L, Cholesterol/HDL Ratio 4.0 Current Medications Medications (Trade) Dose Ordered Sig/Adria Route PRN Reason Start Time Stop Time Status Last Admin Dose Admin Acetaminophen (Tylenol) 650 mg Q4H PRN ORAL fever 10/11/19 08:30 11/09/19 08:29 10/12/19 21:30 Albuterol/ Ipratropium (Albuterol/ Ipratropium) 3 ml Q4H PRN HHN Shortness of Breath 10/11/19 08:30 10/15/19 08:29 Aspirin (Ecotrin) 81 mg DAILY ORAL 10/11/19 09:00 11/25/19 08:59 10/12/19 09:12 Atorvastatin Calcium (Lipitor) 40 mg BEDTIME ORAL 10/12/19 21:00 01/10/20 20:59 10/12/19 21:30 Carvedilol (Coreg) 3.125 mg EVERY 12 HOURS ORAL 10/11/19 09:00 11/09/19 20:59 10/12/19 21:30 Clonidine HCl (Catapres Tab) 0.1 mg Q4H PRN ORAL Blood pressure over 160 systol 10/11/19 08:30 01/08/20 08:29 10/12/19 21:59 Dextrose (Dextrose 50%) 25 ml Q30M PRN IV Hypoglycemia 10/11/19 08:30 01/08/20 11:29 Dextrose (Dextrose 50%) 50 ml Q30M PRN IV Hypoglycemia 10/11/19 08:30 01/08/20 11:29 Docusate Sodium (Colace) 100 mg THREE TIMES A DAY ORAL 10/11/19 09:00 11/09/19 17:59 10/12/19 09:13 Gabapentin (Neurontin) 100 mg THREE TIMES A DAY ORAL 10/11/19 09:00 11/09/19 12:59 10/12/19 17:52 Heparin Sodium/ Dextrose 500 ml @ 44.225 mls/ hr ADJUST PER PROTOCOL IV 10/11/19 19:25 11/10/19 19:24 10/12/19 17:58 Insulin Aspart (NovoLOG) BEFORE MEALS AND HS SUBQ 10/11/19 11:30 01/08/20 11:29 10/12/19 21:00 Isosorbide Mononitrate (Imdur) 30 mg DAILY ORAL 10/13/19 09:00 11/12/19 08:59 Meropenem 500 mg/ Sodium Chloride 55 ml @ 110 mls/hr Q12HR@0500,1700 IVPB 10/11/19 17:00 10/16/19 16:59 10/13/19 05:00 Nitroglycerin (Ntg) 0.4 mg Q5M PRN SL Prn Chest Pain 10/11/19 08:30 11/09/19 11:29 Ondansetron HCl (Zofran) 4 mg Q6H PRN IVP Nausea & Vomiting 10/11/19 08:30 11/09/19 08:29 Pantoprazole (Protonix) 40 mg EVERY 12 HOURS IVP 10/11/19 09:00 11/09/19 12:59 10/12/19 21:31 Polyethylene Glycol (Miralax) 17 gm DAILYPRN PRN ORAL Constipation 10/11/19 08:30 11/09/19 08:29 Temazepam (Restoril) 15 mg HSPRN PRN ORAL Insomnia 10/11/19 11:30 10/17/19 11:29 Vancomycin HCl (Vanco pharmacy to dose) 1 ea DAILY PRN MISC SEPSIS 10/11/19 09:00 11/09/19 11:59 Assessment/Plan Assessment/Plan ASSESSMENT Severe sepsis with E coli bacteremia due to UTI E. coli UTI/pyelonephritis NSTEMI Suspected COVID-19 AFib with RVR DM ARF on CKD Anemia Morbid obesity HTN Toxic metabolic encephalopathy PLAN OF CARE tele O2 titrate to keep sat above 90%, pulmonary toilet, pulse ox stable on RA v fup with chest x-ray abx as per ID recs COVID-19 6/ NGT 10/09 BCX E coli, UCX E Coli 10/10 UCX + GNR, 10/10 BCX NGTD Echo with pEF troponin trending down dual antiplatelet therapy, beta-blockade, Imdur per cardio likely NSTEMI type II in setting of sepsis, asymptomatic cardio recommended noninvasive cardiac work-up versus cardiac cath once stable from ID standpoint heparin gtt for a/c , rate control with beta-blockade, HR currently controlled monitor renal parameters, lytes, correct electrolytes as needed fup with nephro recommendation BS management with SSI monitor H&H with goal to keep hemoglobin above 7 stool OB NGT GI prophylaxis case discussed and evaluated by supervising physician Edilma Atkins NP Oct 13, 2019 07:10
[2019-10-13] MEDS: Heparin 25,000u/D5W 500ml 500 ML IV SCH ×2 (07:43→19:21)
[2019-10-13 08:00] VITALS: BP 136/75
--- NOTE | 2019-10-13 08:31 | NUR ---
NURSE NOTES: Patient received from Radha BEAVERS. Patient in stable condition. Alert and oriented x 3-4. On room air. Not in distress. Iv site patent and intact at left hand 20G. Anne in place draining well to gravity. On heparin drip 15U/kg/hr. Will continue plan of care.
--- NOTE | 2019-10-13 08:45 | NUR ---
HAND-OFF: Report given to Brandie RN.
[2019-10-13] MEDS: Aspirin EC 81mg tab ORAL SCH (09:53)
[2019-10-13] MEDS: Docusate 100mg cap ORAL SCH ×3 (09:53→17:36)
[2019-10-13] MEDS: Pantoprazole Inj IVP SCH ×2 (09:54→20:16)
[2019-10-13] MEDS: Imdur 30mg tab ORAL SCH (09:54)
[2019-10-13] MEDS ORDERED: Heparin 25,000u/D5W 500ml 500 ML IV SCH ×2 (10:00→18:15)
[2019-10-13] MEDS ORDERED: Heparin 5000 units/ml inj IV SCH (10:00)
--- NOTE | 2019-10-13 10:38 | Nephrology Progress Note ---
Assessment/Plan Problem List: (1) Renal failure (ARF), acute on chronic (2) Diabetes mellitus (3) Morbid obesity (4) Chronic atrial fibrillation (5) History of DVT (deep vein thrombosis) (6) Anemia (7) NSTEMI (non-ST elevated myocardial infarction) (8) Sepsis (9) Pyelonephritis Assessment Renal failure, most likely acute on chronic. Sepsis, leukocytosis, fever, suspected 2019 novel coronavirus infection. Encephalopathy most likely toxic metabolic UTI/pyelonephritis Anemia Atrial fibrillation chronic, with fast ventricular rate. Diabetes mellitus Morbid obesity/limited mobility History of DVT Elevated troponin I Lactic acidosis Plan October 12: Serum creatinine lowering. Troponin I is also declining. Continue per cardiology management. Will continue to follow-up renal parameters and CPK level. October 11: Statins stopped due to worsening LFTs. 1 dose of Plavix given. Imdur started. Serum creatinine stable. Continue per cardiology. Continue to monitor renal parameters and CPK. Monitor troponin I and CPK Aspirin, Coreg ,nitrate for elevated troponin Antibiotics Echocardiogram results noted Kidney ultrasound results pending Monitor urine output and renal parameters Keep the blood pressure and blood sugar in check Coumadin for DVT and atrial fibrillation IV Protonix Subjective ROS Limited/Unobtainable: No Constitutional: Reports: malaise, weakness Objective Objective Last 24 Hour Vital Signs Date Time Temp Pulse Resp B/P (MAP) Pulse Ox O2 Delivery O2 Flow Rate FiO2 10/13/19 09:54 136/75 10/13/19 09:53 94 136/75 10/13/19 08:00 98.6 94 20 136/75 (95) 95 10/13/19 04:00 98.1 82 19 117/68 (84) 95 10/13/19 04:00 82 10/13/19 00:30 99.6 10/13/19 00:00 70 10/13/19 00:00 100.2 80 19 171/74 (106) 98 10/12/19 22:00 99.9 10/12/19 21:59 171/74 10/12/19 21:30 80 171/74 10/12/19 21:00 Room Air 10/12/19 20:00 100.2 80 19 171/74 (106) 98 10/12/19 20:00 90 10/12/19 19:15 65 18 95 Room Air 21 10/12/19 18:11 97 10/12/19 16:00 85 10/12/19 16:00 98.6 95 18 125/87 (100) 95 10/12/19 13:02 149/78 10/12/19 12:40 103 10/12/19 12:00 86 10/12/19 12:00 98.6 96 18 147/78 (101) 96 Intake and Output 10/12/19 10/13/19 19:00 07:00 Intake Total 480 ml Output Total 725 ml 1000 ml Balance -245 ml -1000 ml Intake Oral 480 ml Output Urine Total 725 ml 1000 ml # Bowel Movements 1 Laboratory Tests 10/12/19 12:30: Stool Occult Blood Negative 10/12/19 23:55: Activated Partial Thromboplast Time 95H 10/13/19 04:30: White Blood Count 18.5H, Red Blood Count 3.52L, Hemoglobin 9.8L, Hematocrit 28.6L, Mean Corpuscular Volume 81, Mean Corpuscular Hemoglobin 27.7, Mean Corpuscular Hemoglobin Concent 34.1, Red Cell Distribution Width 13.2, Platelet Count 197, Mean Platelet Volume 8.2, Neutrophils (%) (Auto) , Lymphocytes (%) ( Auto) , Monocytes (%) (Auto) , Eosinophils (%) (Auto) , Basophils (%) (Auto) , Differential Total Cells Counted 100, Neutrophils % (Manual) 86H, Lymphocytes % (Manual) 8L, Monocytes % (Manual) 5, Eosinophils % (Manual) 1, Basophils % ( Manual) 0, Band Neutrophils 0, Platelet Estimate Adequate, Platelet Morphology Normal, Hypochromasia 1+, Sodium Level 138, Potassium Level 3.5, Chloride Level 100, Carbon Dioxide Level 26, Anion Gap 12, Blood Urea Nitrogen 54H, Creatinine 2.9H, Estimat Glomerular Filtration Rate 19.3, Glucose Level 146H, Uric Acid 8.0H, Calcium Level 8.5, Phosphorus Level 3.6, Magnesium Level 2.1, Total Bilirubin 0.6, Aspartate Amino Transf (AST/SGOT) 40H, Alanine Aminotransferase ( ALT/SGPT) 16, Alkaline Phosphatase 112, Troponin I 2.149H, C-Reactive Protein, Quantitative 16.7H, Pro-B-Type Natriuretic Peptide 58240L, Total Protein 7.0, Albumin 2.3L, Globulin 4.7, Albumin/Globulin Ratio 0.5L, Triglycerides Level 64 , Cholesterol Level 88, LDL Cholesterol 51, HDL Cholesterol 22L, Cholesterol/ HDL Ratio 4.0 10/13/19 08:20: Activated Partial Thromboplast Time 55H Height (Feet): 5 Height (Inches): 3.00 Weight (Pounds): 325 General Appearance: no apparent distress Cardiovascular: tachycardia Respiratory/Chest: decreased breath sounds Abdomen: distended Pantera Wallace MD Oct 13, 2019 10:38
[2019-10-13 12:00] VITALS: BP 141/84
--- NOTE | 2019-10-13 13:18 | Cardiology Progress Note ---
Assessment/Plan Problem List: (1) Morbid obesity (2) Diabetes mellitus (3) Chronic atrial fibrillation (4) NSTEMI (non-ST elevated myocardial infarction) (5) Elevated troponin I level (6) Suspected 2019 novel coronavirus infection (7) Pyelonephritis (8) Sepsis Status: stable, progressing Status Narrative Urosepsis - urine culture snd blood cultures + e coli . Leukocytosis improving and pt afebrile. Management per ID AF - permanent NonSTEMI - Troponin levels downtrending. EKG with changes suggesting old anterior infarct, but ECHO reporting nl wall motion and ef. Possibly type 2 CT in setting of sepsis. no anginal sx L arm pain - c/w musculoskeletal origin LG on chronic disease - renal parameters slightly improved today DM RV enlargement/ hypokinesis - ? PE, ? due to JAXSON NSVT - 5 bts yesterday Assessment/Plan Continue iv abx per ID.. Anticoagulation and rate control for permanent AF asa, plavix, statin and b idalia for CAD. Noninvasive w/u vs cardiac cath when stable from ID standpoint, to evaluate CAD , and possible need for revascularization Venous duplex unable to be done due to pt size - ? v/q scan Subjective ROS Limited/Unobtainable: No Subjective Cardiology for Dr. Barker. Mrs Funk is awake, in no respiratory distress. No chest pain Objective Last 24 Hour Vital Signs Date Time Temp Pulse Resp B/P (MAP) Pulse Ox O2 Delivery O2 Flow Rate FiO2 10/13/19 12:00 97.7 94 20 141/84 (103) 98 10/13/19 12:00 79 10/13/19 09:54 136/75 10/13/19 09:53 94 136/75 10/13/19 09:00 Room Air 10/13/19 08:00 98.6 94 20 136/75 (95) 95 10/13/19 08:00 82 10/13/19 04:00 98.1 82 19 117/68 (84) 95 10/13/19 04:00 82 10/13/19 00:30 99.6 10/13/19 00:00 70 10/13/19 00:00 100.2 80 19 171/74 (106) 98 10/12/19 22:00 99.9 10/12/19 21:59 171/74 6/6/20 21:30 80 171/74 10/12/19 21:00 Room Air 10/12/19 20:00 100.2 80 19 171/74 (106) 98 10/12/19 20:00 90 10/12/19 19:15 65 18 95 Room Air 21 10/12/19 18:11 97 10/12/19 16:00 85 10/12/19 16:00 98.6 95 18 125/87 (100) 95 General Appearance: WD/WN, obese EENT: PERRL/EOMI Neck: supple, no JVD Rhythm: NSR Cardiovascular: normal rate, no gallop/murmur Respiratory/Chest: lungs clear Abdomen: non tender, soft Extremities: no swelling Intake and Output 10/12/19 10/13/19 19:00 07:00 Intake Total 480 ml Output Total 725 ml 1000 ml Balance -245 ml -1000 ml Intake Oral 480 ml Output Urine Total 725 ml 1000 ml # Bowel Movements 1 Laboratory Tests Test 10/12/19 23:55 10/13/19 04:30 10/13/19 08:20 Activated Partial Thromboplast Time 95 SEC (23-33) H 55 SEC (23-33) H White Blood Count 18.5 K/UL (4.8-10.8) H Red Blood Count 3.52 M/UL (4.20-5.40) L Hemoglobin 9.8 G/DL (12.0-16.0) L Hematocrit 28.6 % (37.0-47.0) L Mean Corpuscular Volume 81 FL (80-99) Mean Corpuscular Hemoglobin 27.7 PG (27.0-31.0) Mean Corpuscular Hemoglobin Concent 34.1 G/DL (32.0-36.0) Red Cell Distribution Width 13.2 % (11.6-14.8) Platelet Count 197 K/UL (150-450) Mean Platelet Volume 8.2 FL (6.5-10.1) Neutrophils (%) (Auto) % (45.0-75.0) Lymphocytes (%) (Auto) % (20.0-45.0) Monocytes (%) (Auto) % (1.0-10.0) Eosinophils (%) (Auto) % (0.0-3.0) Basophils (%) (Auto) % (0.0-2.0) Differential Total Cells Counted 100 Neutrophils % (Manual) 86 % (45-75) H Lymphocytes % (Manual) 8 % (20-45) L Monocytes % (Manual) 5 % (1-10) Eosinophils % (Manual) 1 % (0-3) Basophils % (Manual) 0 % (0-2) Band Neutrophils 0 % (0-8) Platelet Estimate Adequate Platelet Morphology Normal Hypochromasia 1+ Sodium Level 138 MMOL/L (136-145) Potassium Level 3.5 MMOL/L (3.5-5.1) Chloride Level 100 MMOL/L (98-107) Carbon Dioxide Level 26 MMOL/L (21-32) Anion Gap 12 mmol/L (5-15) Blood Urea Nitrogen 54 mg/dL (7-18) H Creatinine 2.9 MG/DL (0.55-1.30) H Estimat Glomerular Filtration Rate 19.3 mL/min (>60) Glucose Level 146 MG/DL (74-106) H Uric Acid 8.0 MG/DL (2.6-7.2) H Calcium Level 8.5 MG/DL (8.5-10.1) Phosphorus Level 3.6 MG/DL (2.5-4.9) Magnesium Level 2.1 MG/DL (1.8-2.4) Total Bilirubin 0.6 MG/DL (0.2-1.0) Aspartate Amino Transf (AST/SGOT) 40 U/L (15-37) H Alanine Aminotransferase (ALT/SGPT) 16 U/L (12-78) Alkaline Phosphatase 112 U/L (46-116) Troponin I 2.149 ng/mL (0.000-0.056) C-Reactive Protein, Quantitative 16.7 mg/dL (0.00-0.90) H Pro-B-Type Natriuretic Peptide 34926 pg/mL (0-125) H Total Protein 7.0 G/DL (6.4-8.2) Albumin 2.3 G/DL (3.4-5.0) L Globulin 4.7 g/dL Albumin/Globulin Ratio 0.5 (1.0-2.7) L Triglycerides Level 64 MG/DL (30-150) Cholesterol Level 88 MG/DL (< 200) LDL Cholesterol 51 mg/dL (<100) HDL Cholesterol 22 MG/DL (40-60) L Cholesterol/HDL Ratio 4.0 (3.3-4.4) Microbiology Date/Time Source Procedure Growth Status 10/11/19 17:14 Blood Blood Culture - Preliminary NO GROWTH AFTER 24 HOURS Resulted 10/11/19 16:50 Blood Blood Culture - Preliminary NO GROWTH AFTER 24 HOURS Resulted 10/11/19 04:00 Urine,Clean Catch Urine Culture - Final Gram Negative Vitaly Complete Juliet Biswas MD Oct 13, 2019 13:18
--- NOTE | 2019-10-13 14:27 | Internal Med Progress Note ---
Subjective Date of Service: Oct 13, 2019 Physician Name Johny Blankenship Attending Physician Aleksandr Vega MD Current Medications Medications (Trade) Dose Ordered Sig/Adria Route PRN Reason Start Time Stop Time Status Last Admin Dose Admin Acetaminophen (Tylenol) 650 mg Q4H PRN ORAL fever 10/11/19 08:30 11/09/19 08:29 10/12/19 21:30 Albuterol/ Ipratropium (Albuterol/ Ipratropium) 3 ml Q4H PRN HHN Shortness of Breath 10/11/19 08:30 10/15/19 08:29 Aspirin (Ecotrin) 81 mg DAILY ORAL 10/11/19 09:00 11/25/19 08:59 10/13/19 09:53 Atorvastatin Calcium (Lipitor) 40 mg BEDTIME ORAL 10/12/19 21:00 01/10/20 20:59 10/12/19 21:30 Carvedilol (Coreg) 3.125 mg EVERY 12 HOURS ORAL 10/11/19 09:00 11/09/19 20:59 10/13/19 09:53 Clonidine HCl (Catapres Tab) 0.1 mg Q4H PRN ORAL Blood pressure over 160 systol 10/11/19 08:30 01/08/20 08:29 10/12/19 21:59 Dextrose (Dextrose 50%) 25 ml Q30M PRN IV Hypoglycemia 10/11/19 08:30 01/08/20 11:29 Dextrose (Dextrose 50%) 50 ml Q30M PRN IV Hypoglycemia 10/11/19 08:30 01/08/20 11:29 Docusate Sodium (Colace) 100 mg THREE TIMES A DAY ORAL 10/11/19 09:00 11/09/19 17:59 10/13/19 12:54 Gabapentin (Neurontin) 100 mg THREE TIMES A DAY ORAL 10/11/19 09:00 11/09/19 12:59 10/13/19 12:54 Heparin Sodium/ Dextrose 500 ml @ 50.122 mls/ hr ADJUST PER PROTOCOL IV 10/13/19 10:00 11/12/19 09:59 10/13/19 09:59 Insulin Aspart (NovoLOG) BEFORE MEALS AND HS SUBQ 10/11/19 11:30 01/08/20 11:29 10/13/19 11:30 Isosorbide Mononitrate (Imdur) 30 mg DAILY ORAL 10/13/19 09:00 11/12/19 08:59 10/13/19 09:54 Meropenem 500 mg/ Sodium Chloride 55 ml @ 110 mls/hr Q12HR@0500,1700 IVPB 10/11/19 17:00 10/16/19 16:59 10/13/19 05:00 Nitroglycerin (Ntg) 0.4 mg Q5M PRN SL Prn Chest Pain 10/11/19 08:30 11/09/19 11:29 Ondansetron HCl (Zofran) 4 mg Q6H PRN IVP Nausea & Vomiting 10/11/19 08:30 11/09/19 08:29 Pantoprazole (Protonix) 40 mg EVERY 12 HOURS IVP 10/11/19 09:00 11/09/19 12:59 10/13/19 09:54 Polyethylene Glycol (Miralax) 17 gm DAILYPRN PRN ORAL Constipation 10/11/19 08:30 11/09/19 08:29 Temazepam (Restoril) 15 mg HSPRN PRN ORAL Insomnia 10/11/19 11:30 10/17/19 11:29 Vancomycin HCl (Vanco pharmacy to dose) 1 ea DAILY PRN MISC SEPSIS 10/11/19 09:00 11/09/19 11:59 Allergies: Coded Allergies: CODEINE (Verified Allergy, Unknown, 10/10/19) ROS Limited/Unobtainable: Yes Subjective 74 YO F admitted with altered mental status and fever. Now UTI and sepsis. Cover for Int Pablo-Dr Vega Objective Last Vital Signs Date Time Temp Pulse Resp B/P (MAP) Pulse Ox O2 Delivery O2 Flow Rate FiO2 10/13/19 12:00 97.7 94 20 141/84 (103) 98 10/13/19 09:00 Room Air 10/12/19 19:15 21 Laboratory Tests Test 10/12/19 23:55 10/13/19 04:30 10/13/19 08:20 Activated Partial Thromboplast Time 95 SEC (23-33) H 55 SEC (23-33) H White Blood Count 18.5 K/UL (4.8-10.8) H Red Blood Count 3.52 M/UL (4.20-5.40) L Hemoglobin 9.8 G/DL (12.0-16.0) L Hematocrit 28.6 % (37.0-47.0) L Mean Corpuscular Volume 81 FL (80-99) Mean Corpuscular Hemoglobin 27.7 PG (27.0-31.0) Mean Corpuscular Hemoglobin Concent 34.1 G/DL (32.0-36.0) Red Cell Distribution Width 13.2 % (11.6-14.8) Platelet Count 197 K/UL (150-450) Mean Platelet Volume 8.2 FL (6.5-10.1) Neutrophils (%) (Auto) % (45.0-75.0) Lymphocytes (%) (Auto) % (20.0-45.0) Monocytes (%) (Auto) % (1.0-10.0) Eosinophils (%) (Auto) % (0.0-3.0) Basophils (%) (Auto) % (0.0-2.0) Differential Total Cells Counted 100 Neutrophils % (Manual) 86 % (45-75) H Lymphocytes % (Manual) 8 % (20-45) L Monocytes % (Manual) 5 % (1-10) Eosinophils % (Manual) 1 % (0-3) Basophils % (Manual) 0 % (0-2) Band Neutrophils 0 % (0-8) Platelet Estimate Adequate Platelet Morphology Normal Hypochromasia 1+ Sodium Level 138 MMOL/L (136-145) Potassium Level 3.5 MMOL/L (3.5-5.1) Chloride Level 100 MMOL/L (98-107) Carbon Dioxide Level 26 MMOL/L (21-32) Anion Gap 12 mmol/L (5-15) Blood Urea Nitrogen 54 mg/dL (7-18) H Creatinine 2.9 MG/DL (0.55-1.30) H Estimat Glomerular Filtration Rate 19.3 mL/min (>60) Glucose Level 146 MG/DL (74-106) H Uric Acid 8.0 MG/DL (2.6-7.2) H Calcium Level 8.5 MG/DL (8.5-10.1) Phosphorus Level 3.6 MG/DL (2.5-4.9) Magnesium Level 2.1 MG/DL (1.8-2.4) Total Bilirubin 0.6 MG/DL (0.2-1.0) Aspartate Amino Transf (AST/SGOT) 40 U/L (15-37) H Alanine Aminotransferase (ALT/SGPT) 16 U/L (12-78) Alkaline Phosphatase 112 U/L (46-116) Troponin I 2.149 ng/mL (0.000-0.056) C-Reactive Protein, Quantitative 16.7 mg/dL (0.00-0.90) H Pro-B-Type Natriuretic Peptide 01661 pg/mL (0-125) H Total Protein 7.0 G/DL (6.4-8.2) Albumin 2.3 G/DL (3.4-5.0) L Globulin 4.7 g/dL Albumin/Globulin Ratio 0.5 (1.0-2.7) L Triglycerides Level 64 MG/DL (30-150) Cholesterol Level 88 MG/DL (< 200) LDL Cholesterol 51 mg/dL (<100) HDL Cholesterol 22 MG/DL (40-60) L Cholesterol/HDL Ratio 4.0 (3.3-4.4) Microbiology Date/Time Source Procedure Growth Status 10/11/19 17:14 Blood Blood Culture - Preliminary NO GROWTH AFTER 24 HOURS Resulted 10/11/19 16:50 Blood Blood Culture - Preliminary NO GROWTH AFTER 24 HOURS Resulted 10/11/19 04:00 Urine,Clean Catch Urine Culture - Final Gram Negative Vitaly Complete Intake and Output 10/12/19 10/13/19 19:00 07:00 Intake Total 480 ml Output Total 725 ml 1000 ml Balance -245 ml -1000 ml Intake Oral 480 ml Output Urine Total 725 ml 1000 ml # Bowel Movements 1 Objective PHYSICAL EXAMINATION: GENERAL: Patient is well-developed, well-nourished, slightly obese female, in no apparent distress. HEENT: Eyes, pupils are equal and responsive to light and accommodation. Extraocular movements are intact. NECK: Supple. No lymphadenopathy. CHEST: Lungs are clear to auscultation bilaterally without wheezes or rales. CARDIOVASCULAR: Regular rate. S1, S2 are normal without murmurs, rubs, or gallops. ABDOMEN: Soft, nontender, nondistended. Positive bowel sounds. No evidence of hepatosplenomegaly. Currently no rebound or guarding noted. EXTREMITIES: Negative for clubbing, cyanosis, or edema. RECTAL/GENITAL: Not performed. NEUROLOGIC: Cranial nerves II to XII grossly intact without focal deficits Assessment/Plan Assessment/Plan ASSESSMENT: This is a 74-year-old female. 1. Sepsis=E. Coli 2. UTI=E. Coli 3. Altered mental status. 4. Leukocytosis. 5. Elevated troponin. 6. Atrial fibrillation. 7. Diabetes type 2. 8. Hypertension. 9. Hyperthyroidism. 10. Coronary artery disease. 11. Renal failure. 12. Hypercholesterolemia. 13. Chronic lymphedema of the bilateral lower extremities. TREATMENT: 1. Urinary Tract infection-E. Coli ABX=meropenem. Infectious Disease=Dr. Mays. We will follow recommendations of Infectious Disease. 2. Sepsis=E. Coli Await culture and sensitivity result. Continue meropenem per ID. 3. Altered mental status. Resolved 4. Leukocytosis. Resolved 5. Elevated troponin. A Cardiology consultation has been obtained with Dr. Arun Barker. 6. Atrial fibrillation. Continue Coumadin as above. A Cardiology consultation has been obtained with Dr. Arun Barker. 7. Diabetes type 2. NovoLog sliding scale has been instituted. 8. Hypertension. Patient is currently hypotensive. Hold amlodipine as above. 9. Hyperthyroidism. Continue methimazole as above. 10. Coronary artery disease. Patient has elevated troponin. A Cardiology consultation has been obtained with Dr. Arun Barker. 11. Renal failure. A Nephrology consultation has been obtained with Dr. Pantera Wallace. 12. Hypercholesterolemia. Continue simvastatin as above. 13. Chronic lymphedema of bilateral lower extremities. Johny Blankenship MD Oct 13, 2019 14:27
[2019-10-13 16:00] VITALS: BP 144/81
--- NOTE | 2019-10-13 19:23 | NUR ---
HAND-OFF: Report given to Radha BEAVERS. Patient in stable condition. Endorsed plan of care..
[2019-10-13 20:00] VITALS: BP 165/96
--- NOTE | 2019-10-13 20:00 | NUR ---
NURSE NOTES: Pt sitting up in bed, is awake, alert and oriented x4, appears comfortable. Denies pain at this time. Pt has swelling in bilateral lower extremities L>R. Pt is running a fib on monitor. On heparin drip , running at 14 units/kg/hour, no bleeding noted. The next PTT is at 0. will continue to monitor pt. No signs of bleeding. She is sitting up in bed, bed is locked in lowest position, side rails x2, bed alarm on. call light is within reach
[2019-10-13] MEDS: Atorvastatin 20mg tab ORAL SCH (20:16)
[2019-10-14] VITALS (7 sets, daily range): BP systolic 94–173; BP diastolic 56–103
--- NOTE | 2019-10-14 01:30 | NUR ---
NURSE NOTES: Lab PTT drawn and resulted within therapeutic range, no change to heparin drip rate at 14 units/kg/hour
--- NOTE | 2019-10-14 01:30 | NUR ---
NURSE NOTES: PTT at 86, continue heparin drip as ordered at same rate of 14 units per kg per hour
--- NOTE | 2019-10-14 05:05 | NUR ---
NURSE NOTES: Pt fever spiked to 102.7, heart rate shot up to 160's running a-fib on the monitor. BP extremely elevated 173/103 Pt was previously answering in complete sentences and was not when I entered the room. She was tachypneic, had respirations of 50 plus per minute, lips quivering. I was concerned about the abrupt change in condition and called a rapid response.
--- NOTE | 2019-10-14 05:12 | NUR ---
NURSE NOTES: Called Dr Vega explained GEOTHERMAL POWERPLANT SUPERVISOR called and condition of patient requested orders, awaiting response
--- NOTE | 2019-10-14 05:20 | NUR ---
RESPIRATORY NOTE: ABG DONE. WAITING FOR ORDER.
--- NOTE | 2019-10-14 05:25 | NUR ---
NURSE NOTES: Called Dr Brownlee explained situation and requested orders. awaiting response
--- NOTE | 2019-10-14 05:25 | NUR ---
NURSE NOTES: applied cooling measures. O2 sat at 96% on 8L 40% venturi mask
[2019-10-14] MEDS: Meropenem 500 MG in NS 55 ML IVPB SCH ×2 (05:56→17:10)
--- NOTE | 2019-10-14 06:03 | NUR ---
NURSE NOTES: Pt temp is now at 104.0 cooling measures ineffective
[2019-10-14] MEDS ORDERED: Acetaminophen 650 MG SUPP RECTAL PRN (06:30)
[2019-10-14] MEDS: NovoLOG Insulin Flexpen SUBQ SCH ×4 (06:30→21:00)
--- NOTE | 2019-10-14 06:35 | NUR ---
NURSE NOTES: Orders received and inputed. Stat chest xray ordered. Gave tylenol rectally for elevated temperature, will continue to monitor
--- NOTE | 2019-10-14 07:00 | NUR ---
NURSE NOTES: Gave tylenol rectally at 0630 for temp of 104.0 Reassessed and temp went to 99.3 Did not scan tylenol in urgent response, had to waste po tylenol and undo as pt was unable to swallow and concer for aspiration.
[2019-10-14 07:14] LABS: CREATINE KINASE 63 U/L (26-308); GAMMA GLUTAMYL TRANSPEPTIDASE 85 U/L (5-85); HEMATOCRIT 32.4 % (37.0-47.0); HEMOGLOBIN 10.8 G/DL (12.0-16.0); MEAN CORPUSCULAR VOLUME 80 FL (80-99); PLATELET COUNT 189 K/UL (150-450); RED BLOOD COUNT 4.05 M/UL (4.20-5.40); RED CELL DISTRIBUTION WIDTH 13.3 % (11.6-14.8); WHITE BLOOD COUNT 8.2 K/UL (4.8-10.8)
--- NOTE | 2019-10-14 07:28 | Diagnostic Imaging Report ---
EXAM: XR Chest, 1 View CLINICAL HISTORY: SOB TECHNIQUE: Frontal view of the chest. COMPARISON: No relevant prior studies available. FINDINGS: EKG leads overlie the patient. No focal consolidation or pneumothorax. Probable, small left pleural effusion. Mild vascular congestion. The heart is enlarged. The aorta is calcified. IMPRESSION: Enlarged cardiac size. Mild vascular congestion. Probable small left pleural effusion.
--- NOTE | 2019-10-14 07:30 | NUR ---
NURSE NOTES:handoff received from RUTHANN Garcia. Patient observed sleeping in bed. RN informed me that ACTIVITY THERAPY TEACHER was called as patient desatted and had high fever, fever now in normal range. Patient has Anne cath in place, patient and draining, bed in the low and locked position with bed alarm on, call light within reach. Patient is on non-rebreather mask at 8 liters. Patient also receiving heparin drip 14units/Kg/Hr running at 41.277 MLS/HR. will continue to monitor patie
[2019-10-14 07:42] LABS: CHOLESTEROL 80 MG/DL (< 200); HDL CHOLESTEROL 25 MG/DL (40-60); TRIGLYCERIDES 47 MG/DL (30-150)
--- NOTE | 2019-10-14 08:21 | NUR ---
HAND-OFF: Report given to Jose BEAVERS. Hep drip continued per protocol endorsed to monitor pt closely for chaneg in mentation. Dr Vega said to do head CT if continued change in mentation
[2019-10-14] MEDS: Heparin 25,000u/D5W 500ml 500 ML IV SCH (08:35)
[2019-10-14 08:39] LABS: ANION GAP 15 mmol/L (5-15); BLOOD UREA NITROGEN 48 mg/dL (7-18); CALCIUM 8.4 MG/DL (8.5-10.1); CARBON DIOXIDE 23 MMOL/L (21-32); CHLORIDE 99 MMOL/L (98-107); CREATININE 2.6 MG/DL (0.55-1.30); SODIUM 137 MMOL/L (136-145)
[2019-10-14 08:44] LABS: ALANINE AMINOTRANSFERASE 22 U/L (12-78); ALBUMIN 2.6 G/DL (3.4-5.0); ALBUMIN/GLOBULIN RATIO 0.6 (1.0-2.7); ALKALINE PHOSPHATASE 186 U/L (46-116); ASPARTATE AMINO TRANSFERASE 36 U/L (15-37); BILIRUBIN,TOTAL 1.2 MG/DL (0.2-1.0)
--- NOTE | 2019-10-14 08:45 | NUR ---
PT NOTE Received MD order for PT evaluation. REAL ESTATE ASSET MANAGER called earlier this morning due to patient desaturated and had high fever. Will hold PT evaluation today and follow up tomorrow. Discussed with Jose BEAVERS, will need MD clearance to initiate PT evaluation due to REAL ESTATE ASSET MANAGER.
[2019-10-14 08:53] LABS: BILIRUBIN,DIRECT 0.6 MG/DL (0.0-0.3)
--- NOTE | 2019-10-14 09:31 | Nephrology Progress Note ---
Assessment/Plan Problem List: (1) Renal failure (ARF), acute on chronic (2) Diabetes mellitus (3) Morbid obesity (4) Chronic atrial fibrillation (5) History of DVT (deep vein thrombosis) (6) Anemia (7) NSTEMI (non-ST elevated myocardial infarction) (8) Sepsis (9) Pyelonephritis Assessment Renal failure, most likely acute on chronic. Sepsis, leukocytosis, fever, suspected 2019 novel coronavirus infection. Encephalopathy most likely toxic metabolic UTI/pyelonephritis Anemia Atrial fibrillation chronic, with fast ventricular rate. Diabetes mellitus Morbid obesity/limited mobility History of DVT Elevated troponin I Lactic acidosis Plan October 13: Serum creatinine continues to lower. Troponin level also declining. Continue per cardiology management. Statins was restarted by cardiology. Continue to monitor renal parameters. October 12: Serum creatinine lowering. Troponin I is also declining. Continue per cardiology management. Will continue to follow-up renal parameters and CPK level. October 11: Statins stopped due to worsening LFTs. 1 dose of Plavix given. Imdur started. Serum creatinine stable. Continue per cardiology. Continue to monitor renal parameters and CPK. Monitor troponin I and CPK Aspirin, Coreg ,nitrate for elevated troponin Antibiotics Echocardiogram results noted Kidney ultrasound results pending Monitor urine output and renal parameters Keep the blood pressure and blood sugar in check Coumadin for DVT and atrial fibrillation IV Protonix Subjective ROS Limited/Unobtainable: No Constitutional: Reports: malaise, weakness Objective Objective Last 24 Hour Vital Signs Date Time Temp Pulse Resp B/P (MAP) Pulse Ox O2 Delivery O2 Flow Rate FiO2 10/14/19 08:00 97.7 74 22 95/63 (74) 100 10/14/19 06:02 104.0 10/14/19 05:18 140 50 91 10/14/19 05:00 102.7 10/14/19 04:00 99.5 60 19 113/95 (101) 95 10/14/19 04:00 100 10/14/19 00:00 85 10/14/19 00:00 98.8 89 19 123/75 (91) 95 10/13/19 21:00 Room Air 10/13/19 20:52 99.3 10/13/19 20:20 67 18 96 Room Air 21 10/13/19 20:16 91 165/96 10/13/19 20:00 87 10/13/19 20:00 99.3 91 19 165/96 (119) 93 10/13/19 16:00 66 10/13/19 16:00 98.1 89 20 144/81 (102) 98 10/13/19 12:00 97.7 94 20 141/84 (103) 98 10/13/19 12:00 79 10/13/19 09:54 136/75 10/13/19 09:53 94 136/75 Intake and Output 10/13/19 10/14/19 19:00 07:00 Intake Total 944.426 ml 454.047 ml Output Total 1200 ml 1200 ml Balance -255.574 ml -745.953 ml Intake Oral 400 ml IV Total 544.426 ml 454.047 ml Output Urine Total 1200 ml 1200 ml # Voids 1 # Bowel Movements 2 Current Medications Medications (Trade) Dose Ordered Sig/Adria Route PRN Reason Start Time Stop Time Status Last Admin Dose Admin Acetaminophen (Tylenol) 650 mg Q4H PRN ORAL fever 10/11/19 08:30 11/09/19 08:29 10/13/19 20:22 Acetaminophen (Tylenol) 650 mg Q4H PRN RECTAL Temp >100.5 10/14/19 06:30 11/13/19 06:29 Albuterol/ Ipratropium (Albuterol/ Ipratropium) 3 ml Q4H PRN HHN Shortness of Breath 10/11/19 08:30 10/15/19 08:29 Aspirin (Ecotrin) 81 mg DAILY ORAL 10/11/19 09:00 11/25/19 08:59 10/13/19 09:53 Atorvastatin Calcium (Lipitor) 40 mg BEDTIME ORAL 10/12/19 21:00 01/10/20 20:59 10/13/19 20:16 Carvedilol (Coreg) 3.125 mg EVERY 12 HOURS ORAL 10/11/19 09:00 11/09/19 20:59 10/13/19 20:16 Clonidine HCl (Catapres Tab) 0.1 mg Q4H PRN ORAL Blood pressure over 160 systol 10/11/19 08:30 01/08/20 08:29 10/12/19 21:59 Dextrose (Dextrose 50%) 25 ml Q30M PRN IV Hypoglycemia 10/11/19 08:30 01/08/20 11:29 Dextrose (Dextrose 50%) 50 ml Q30M PRN IV Hypoglycemia 10/11/19 08:30 01/08/20 11:29 Docusate Sodium (Colace) 100 mg THREE TIMES A DAY ORAL 10/11/19 09:00 11/09/19 17:59 10/13/19 17:36 Gabapentin (Neurontin) 100 mg THREE TIMES A DAY ORAL 10/11/19 09:00 11/09/19 12:59 10/13/19 17:36 Heparin Sodium/ Dextrose 500 ml @ 41.277 mls/ hr ADJUST PER PROTOCOL IV 10/13/19 19:15 11/12/19 19:14 10/14/19 08:35 Insulin Aspart (NovoLOG) BEFORE MEALS AND HS SUBQ 10/11/19 11:30 01/08/20 11:29 10/13/19 11:30 Isosorbide Mononitrate (Imdur) 30 mg DAILY ORAL 10/13/19 09:00 11/12/19 08:59 10/13/19 09:54 Meropenem 500 mg/ Sodium Chloride 55 ml @ 110 mls/hr Q12HR@0500,1700 IVPB 10/11/19 17:00 10/16/19 16:59 10/14/19 05:56 Nitroglycerin (Ntg) 0.4 mg Q5M PRN SL Prn Chest Pain 10/11/19 08:30 11/09/19 11:29 Ondansetron HCl (Zofran) 4 mg Q6H PRN IVP Nausea & Vomiting 10/11/19 08:30 11/09/19 08:29 Pantoprazole (Protonix) 40 mg EVERY 12 HOURS IVP 10/11/19 09:00 11/09/19 12:59 10/13/19 20:16 Polyethylene Glycol (Miralax) 17 gm DAILYPRN PRN ORAL Constipation 10/11/19 08:30 11/09/19 08:29 Temazepam (Restoril) 15 mg HSPRN PRN ORAL Insomnia 10/11/19 11:30 10/17/19 11:29 Vancomycin HCl (Vanco pharmacy to dose) 1 ea DAILY PRN MISC SEPSIS 10/11/19 09:00 11/09/19 11:59 Laboratory Tests 10/13/19 17:20: Activated Partial Thromboplast Time 142H 10/14/19 01:05: Activated Partial Thromboplast Time 86H 10/14/19 04:58: Arterial Blood pH 7.508H, Arterial Blood Partial Pressure CO2 28.0L, Arterial Blood Partial Pressure O2 255.2H, Arterial Blood HCO3 21.7L, Arterial Blood Oxygen Saturation 99.3, Arterial Blood Base Excess -0.4, Hardeep Test Positive 10/14/19 06:30: White Blood Count 8.2#, Red Blood Count 4.05L, Hemoglobin 10.8L, Hematocrit 32.4L, Mean Corpuscular Volume 80, Mean Corpuscular Hemoglobin 26.8L, Mean Corpuscular Hemoglobin Concent 33.4, Red Cell Distribution Width 13.3, Platelet Count 189, Mean Platelet Volume 8.8, Neutrophils (%) (Auto) , Lymphocytes (%) ( Auto) , Monocytes (%) (Auto) , Eosinophils (%) (Auto) , Basophils (%) (Auto) , Differential Total Cells Counted 100, Neutrophils % (Manual) 91H, Lymphocytes % (Manual) 4L, Monocytes % (Manual) 5, Eosinophils % (Manual) 0, Basophils % ( Manual) 0, Band Neutrophils 0, Platelet Estimate Adequate, Platelet Morphology Normal, Hypochromasia 1+, Anisocytosis , Sodium Level 137, Potassium Level 4.0, Chloride Level 99, Carbon Dioxide Level 23, Anion Gap 15, Blood Urea Nitrogen 48H, Creatinine 2.6H, Estimat Glomerular Filtration Rate 21.8, Glucose Level 216H, Uric Acid 8.3H, Calcium Level 8.4L, Phosphorus Level 3.0, Magnesium Level 1.9, Total Bilirubin 1.2H, Direct Bilirubin 0.6H, Gamma Glutamyl Transpeptidase 85, Aspartate Amino Transf (AST/SGOT) 36, Alanine Aminotransferase (ALT/SGPT) 22 , Alkaline Phosphatase 186H, Total Creatine Kinase 63, Troponin I 1.342H, C- Reactive Protein, Quantitative 16.9H, Pro-B-Type Natriuretic Peptide 9790H, Total Protein 7.0, Albumin 2.6L, Globulin 4.4, Albumin/Globulin Ratio 0.6L, Triglycerides Level 47, Cholesterol Level 80, LDL Cholesterol 45, HDL Cholesterol 25L, Cholesterol/HDL Ratio 3.2L, Random Vancomycin Level 11.4 Height (Feet): 5 Height (Inches): 3.00 Weight (Pounds): 325 General Appearance: no apparent distress, lethargic Cardiovascular: tachycardia Respiratory/Chest: decreased breath sounds Abdomen: distended Pantera Wallace MD Oct 14, 2019 09:31
[2019-10-14] MEDS: Aspirin EC 81mg tab ORAL SCH (10:00)
[2019-10-14] MEDS: Docusate 100mg cap ORAL SCH ×3 (10:00→17:09)
[2019-10-14] MEDS: Imdur 30mg tab ORAL SCH (10:00)
--- NOTE | 2019-10-14 10:48 | NUR ---
RADIOLOGY DEPT, LATE ENTRY, CHEST X-RAY DONE 07:10. - P. DYE
--- NOTE | 2019-10-14 11:37 | Pulmonology Progress Note ---
Subjective ROS Limited/Unobtainable: No Constitutional: Reports: no symptoms HEENT: Repors: no symptoms Respiratory: Reports: no symptoms Allergies: Coded Allergies: CODEINE (Verified Allergy, Unknown, 10/10/19) Objective Last 24 Hour Vital Signs Date Time Temp Pulse Resp B/P (MAP) Pulse Ox O2 Delivery O2 Flow Rate FiO2 10/14/19 10:00 95/63 10/14/19 10:00 74 95/63 10/14/19 09:00 Venturi Mask 8.0 10/14/19 08:00 117 10/14/19 08:00 97.7 74 22 95/63 (74) 100 10/14/19 07:00 74 18 100 Room Air 21 10/14/19 06:02 104.0 10/14/19 05:18 140 50 91 10/14/19 05:00 102.7 10/14/19 04:00 99.5 60 19 113/95 (101) 95 10/14/19 04:00 100 10/14/19 00:00 85 10/14/19 00:00 98.8 89 19 123/75 (91) 95 10/13/19 21:00 Room Air 10/13/19 20:52 99.3 10/13/19 20:20 67 18 96 Room Air 21 10/13/19 20:16 91 165/96 10/13/19 20:00 87 10/13/19 20:00 99.3 91 19 165/96 (119) 93 10/13/19 16:00 66 10/13/19 16:00 98.1 89 20 144/81 (102) 98 10/13/19 12:00 97.7 94 20 141/84 (103) 98 10/13/19 12:00 79 Intake and Output 10/13/19 10/14/19 19:00 07:00 Intake Total 944.426 ml 454.047 ml Output Total 1200 ml 1200 ml Balance -255.574 ml -745.953 ml Intake Oral 400 ml IV Total 544.426 ml 454.047 ml Output Urine Total 1200 ml 1200 ml # Voids 1 # Bowel Movements 2 General Appearance: WD/WN, no acute distress HEENT: normocephalic, atraumatic, anicteric, mucous membranes moist Respiratory: chest wall non-tender, normal breath sounds Cardiovascular: normal peripheral pulses, irregularly irregular - A fib with controlled HR Abdomen: normal bowel sounds, soft, non tender - obese Extremities: no clubbing, no edema Skin: no rash Neurologic: wet roaster II-XII grossly normal, alert, responsive Musculoskeletal: normal muscle bulk Microbiology Date/Time Source Procedure Growth Status 10/11/19 17:14 Blood Blood Culture - Preliminary NO GROWTH AFTER 48 HOURS Resulted 10/11/19 16:50 Blood Blood Culture - Preliminary NO GROWTH AFTER 48 HOURS Resulted 10/11/19 21:15 Nasopharynx Coronavirus COVID-19 PCR ([facility]) - Final Complete Laboratory Tests 10/13/19 17:20: Activated Partial Thromboplast Time 142H 10/14/19 01:05: Activated Partial Thromboplast Time 86H 10/14/19 04:58: Arterial Blood pH 7.508H, Arterial Blood Partial Pressure CO2 28.0L, Arterial Blood Partial Pressure O2 255.2H, Arterial Blood HCO3 21.7L, Arterial Blood Oxygen Saturation 99.3, Arterial Blood Base Excess -0.4, Hardeep Test Positive 10/14/19 06:30: White Blood Count 8.2#, Red Blood Count 4.05L, Hemoglobin 10.8L, Hematocrit 32.4L, Mean Corpuscular Volume 80, Mean Corpuscular Hemoglobin 26.8L, Mean Corpuscular Hemoglobin Concent 33.4, Red Cell Distribution Width 13.3, Platelet Count 189, Mean Platelet Volume 8.8, Neutrophils (%) (Auto) , Lymphocytes (%) ( Auto) , Monocytes (%) (Auto) , Eosinophils (%) (Auto) , Basophils (%) (Auto) , Differential Total Cells Counted 100, Neutrophils % (Manual) 91H, Lymphocytes % (Manual) 4L, Monocytes % (Manual) 5, Eosinophils % (Manual) 0, Basophils % ( Manual) 0, Band Neutrophils 0, Platelet Estimate Adequate, Platelet Morphology Normal, Hypochromasia 1+, Anisocytosis , Sodium Level 137, Potassium Level 4.0, Chloride Level 99, Carbon Dioxide Level 23, Anion Gap 15, Blood Urea Nitrogen 48H, Creatinine 2.6H, Estimat Glomerular Filtration Rate 21.8, Glucose Level 216H, Uric Acid 8.3H, Calcium Level 8.4L, Phosphorus Level 3.0, Magnesium Level 1.9, Total Bilirubin 1.2H, Direct Bilirubin 0.6H, Gamma Glutamyl Transpeptidase 85, Aspartate Amino Transf (AST/SGOT) 36, Alanine Aminotransferase (ALT/SGPT) 22 , Alkaline Phosphatase 186H, Total Creatine Kinase 63, Troponin I 1.342H, C- Reactive Protein, Quantitative 16.9H, Pro-B-Type Natriuretic Peptide 9790H, Total Protein 7.0, Albumin 2.6L, Globulin 4.4, Albumin/Globulin Ratio 0.6L, Triglycerides Level 47, Cholesterol Level 80, LDL Cholesterol 45, HDL Cholesterol 25L, Cholesterol/HDL Ratio 3.2L, Random Vancomycin Level 11.4 Current Medications Medications (Trade) Dose Ordered Sig/Adria Route PRN Reason Start Time Stop Time Status Last Admin Dose Admin Acetaminophen (Tylenol) 650 mg Q4H PRN ORAL fever 10/11/19 08:30 11/09/19 08:29 10/13/19 20:22 Acetaminophen (Tylenol) 650 mg Q4H PRN RECTAL Temp >100.5 10/14/19 06:30 11/13/19 06:29 Albuterol/ Ipratropium (Albuterol/ Ipratropium) 3 ml Q4H PRN HHN Shortness of Breath 10/11/19 08:30 10/15/19 08:29 Aspirin (Ecotrin) 81 mg DAILY ORAL 10/11/19 09:00 11/25/19 08:59 10/14/19 10:00 Atorvastatin Calcium (Lipitor) 40 mg BEDTIME ORAL 10/12/19 21:00 01/10/20 20:59 10/13/19 20:16 Carvedilol (Coreg) 3.125 mg EVERY 12 HOURS ORAL 10/11/19 09:00 11/09/19 20:59 10/13/19 20:16 Clonidine HCl (Catapres Tab) 0.1 mg Q4H PRN ORAL Blood pressure over 160 systol 10/11/19 08:30 01/08/20 08:29 10/12/19 21:59 Dextrose (Dextrose 50%) 25 ml Q30M PRN IV Hypoglycemia 10/11/19 08:30 01/08/20 11:29 Dextrose (Dextrose 50%) 50 ml Q30M PRN IV Hypoglycemia 10/11/19 08:30 01/08/20 11:29 Docusate Sodium (Colace) 100 mg THREE TIMES A DAY ORAL 10/11/19 09:00 11/09/19 17:59 10/13/19 17:36 Gabapentin (Neurontin) 100 mg THREE TIMES A DAY ORAL 10/11/19 09:00 11/09/19 12:59 10/14/19 10:00 Heparin Sodium/ Dextrose 500 ml @ 41.277 mls/ hr ADJUST PER PROTOCOL IV 10/13/19 19:15 11/12/19 19:14 10/14/19 08:35 Insulin Aspart (NovoLOG) BEFORE MEALS AND HS SUBQ 10/11/19 11:30 01/08/20 11:29 10/13/19 11:30 Isosorbide Mononitrate (Imdur) 30 mg DAILY ORAL 10/13/19 09:00 11/12/19 08:59 10/14/19 10:00 Meropenem 500 mg/ Sodium Chloride 55 ml @ 110 mls/hr Q12HR@0500,1700 IVPB 10/11/19 17:00 10/16/19 16:59 10/14/19 05:56 Nitroglycerin (Ntg) 0.4 mg Q5M PRN SL Prn Chest Pain 10/11/19 08:30 11/09/19 11:29 Ondansetron HCl (Zofran) 4 mg Q6H PRN IVP Nausea & Vomiting 10/11/19 08:30 11/09/19 08:29 Pantoprazole (Protonix) 40 mg EVERY 12 HOURS ORAL 10/14/19 21:00 11/13/19 20:59 Polyethylene Glycol (Miralax) 17 gm DAILYPRN PRN ORAL Constipation 10/11/19 08:30 11/09/19 08:29 Temazepam (Restoril) 15 mg HSPRN PRN ORAL Insomnia 10/11/19 11:30 10/17/19 11:29 Vancomycin HCl ([facility] pharmacy to dose) 1 ea DAILY PRN MISC SEPSIS 10/11/19 09:00 11/09/19 11:59 Assessment/Plan Problems: (1) Sepsis (2) NSTEMI (non-ST elevated myocardial infarction) (3) Renal failure (ARF), acute on chronic (4) Pyelonephritis (5) Atrial fibrillation with rapid ventricular response (6) Chronic atrial fibrillation (7) Limited mobility (8) Anemia (9) Diabetes mellitus (10) Morbid obesity Assessment/Plan one episode of fever electrolytes supplement iv abx by ID creatinine is stable now asa, plavix and b idalia f cardio suggest "Noninvasive w/u vs cardiac cath when stable from ID standpoint, to evaluate CAD," sliding scale diabetic diet renal studies dvt prophylaxis. Bandar Brownlee MD Oct 14, 2019 11:37
--- NOTE | 2019-10-14 12:06 | NUR ---
NURSE NOTES:Contacted Dr Mays as patient Covid result negative x2. Dr Mays wants to continue isolation precautions as patient had fever PM shift.
--- NOTE | 2019-10-14 13:01 | Internal Med Progress Note ---
Subjective Date of Service: Oct 14, 2019 Physician Name Johny Blankenship Attending Physician Aleksandr Vega MD Current Medications Medications (Trade) Dose Ordered Sig/Adria Route PRN Reason Start Time Stop Time Status Last Admin Dose Admin Acetaminophen (Tylenol) 650 mg Q4H PRN ORAL fever 10/11/19 08:30 11/09/19 08:29 10/13/19 20:22 Acetaminophen (Tylenol) 650 mg Q4H PRN RECTAL Temp >100.5 10/14/19 06:30 11/13/19 06:29 Albuterol/ Ipratropium (Albuterol/ Ipratropium) 3 ml Q4H PRN HHN Shortness of Breath 10/11/19 08:30 10/15/19 08:29 Aspirin (Ecotrin) 81 mg DAILY ORAL 10/11/19 09:00 11/25/19 08:59 10/14/19 10:00 Atorvastatin Calcium (Lipitor) 40 mg BEDTIME ORAL 10/12/19 21:00 01/10/20 20:59 10/13/19 20:16 Carvedilol (Coreg) 3.125 mg EVERY 12 HOURS ORAL 10/11/19 09:00 11/09/19 20:59 10/13/19 20:16 Clonidine HCl (Catapres Tab) 0.1 mg Q4H PRN ORAL Blood pressure over 160 systol 10/11/19 08:30 01/08/20 08:29 10/12/19 21:59 Dextrose (Dextrose 50%) 25 ml Q30M PRN IV Hypoglycemia 10/11/19 08:30 01/08/20 11:29 Dextrose (Dextrose 50%) 50 ml Q30M PRN IV Hypoglycemia 10/11/19 08:30 01/08/20 11:29 Docusate Sodium (Colace) 100 mg THREE TIMES A DAY ORAL 10/11/19 09:00 11/09/19 17:59 10/13/19 17:36 Gabapentin (Neurontin) 100 mg THREE TIMES A DAY ORAL 10/11/19 09:00 11/09/19 12:59 10/14/19 10:00 Heparin Sodium/ Dextrose 500 ml @ 41.277 mls/ hr ADJUST PER PROTOCOL IV 10/13/19 19:15 11/12/19 19:14 10/14/19 08:35 Insulin Aspart (NovoLOG) BEFORE MEALS AND HS SUBQ 10/11/19 11:30 01/08/20 11:29 10/14/19 12:10 Isosorbide Mononitrate (Imdur) 30 mg DAILY ORAL 10/13/19 09:00 11/12/19 08:59 10/14/19 10:00 Meropenem 500 mg/ Sodium Chloride 55 ml @ 110 mls/hr Q12HR@0500,1700 IVPB 10/11/19 17:00 10/16/19 16:59 10/14/19 05:56 Nitroglycerin (Ntg) 0.4 mg Q5M PRN SL Prn Chest Pain 10/11/19 08:30 11/09/19 11:29 Ondansetron HCl (Zofran) 4 mg Q6H PRN IVP Nausea & Vomiting 10/11/19 08:30 11/09/19 08:29 Pantoprazole (Protonix) 40 mg EVERY 12 HOURS ORAL 10/14/19 21:00 11/13/19 20:59 Polyethylene Glycol (Miralax) 17 gm DAILYPRN PRN ORAL Constipation 10/11/19 08:30 11/09/19 08:29 Temazepam (Restoril) 15 mg HSPRN PRN ORAL Insomnia 10/11/19 11:30 10/17/19 11:29 Vancomycin HCl ([facility] pharmacy to dose) 1 ea DAILY PRN MISC SEPSIS 10/11/19 09:00 11/09/19 11:59 Allergies: Coded Allergies: CODEINE (Verified Allergy, Unknown, 10/10/19) ROS Limited/Unobtainable: Yes Subjective 74 YO F admitted with altered mental status and fever. Now UTI and sepsis. Cover for Int Med-Dr Vega Objective Last Vital Signs Date Time Temp Pulse Resp B/P (MAP) Pulse Ox O2 Delivery O2 Flow Rate FiO2 10/14/19 10:00 95/63 10/14/19 10:00 74 10/14/19 09:00 Venturi Mask 8.0 10/14/19 08:00 97.7 22 100 10/14/19 07:00 21 Laboratory Tests Test 10/13/19 17:20 10/14/19 01:05 10/14/19 04:58 10/14/19 06:30 Activated Partial Thromboplast Time 142 SEC (23-33) H 86 SEC (23-33) H Arterial Blood pH 7.508 (7.350-7.450) Arterial Blood Partial Pressure CO2 28.0 mmHg (35.0-45.0) L Arterial Blood Partial Pressure O2 255.2 mmHg (75.0-100.0) H Arterial Blood HCO3 21.7 mmol/L (22.0-26.0) L Arterial Blood Oxygen Saturation 99.3 % (95-100) Arterial Blood Base Excess -0.4 (-2-2) Hardeep Test Positive White Blood Count 8.2 K/UL (4.8-10.8) # Red Blood Count 4.05 M/UL (4.20-5.40) L Hemoglobin 10.8 G/DL (12.0-16.0) L Hematocrit 32.4 % (37.0-47.0) L Mean Corpuscular Volume 80 FL (80-99) Mean Corpuscular Hemoglobin 26.8 PG (27.0-31.0) L Mean Corpuscular Hemoglobin Concent 33.4 G/DL (32.0-36.0) Red Cell Distribution Width 13.3 % (11.6-14.8) Platelet Count 189 K/UL (150-450) Mean Platelet Volume 8.8 FL (6.5-10.1) Neutrophils (%) (Auto) % (45.0-75.0) Lymphocytes (%) (Auto) % (20.0-45.0) Monocytes (%) (Auto) % (1.0-10.0) Eosinophils (%) (Auto) % (0.0-3.0) Basophils (%) (Auto) % (0.0-2.0) Differential Total Cells Counted 100 Neutrophils % (Manual) 91 % (45-75) H Lymphocytes % (Manual) 4 % (20-45) L Monocytes % (Manual) 5 % (1-10) Eosinophils % (Manual) 0 % (0-3) Basophils % (Manual) 0 % (0-2) Band Neutrophils 0 % (0-8) Platelet Estimate Adequate Platelet Morphology Normal Hypochromasia 1+ Anisocytosis Sodium Level 137 MMOL/L (136-145) Potassium Level 4.0 MMOL/L (3.5-5.1) Chloride Level 99 MMOL/L (98-107) Carbon Dioxide Level 23 MMOL/L (21-32) Anion Gap 15 mmol/L (5-15) Blood Urea Nitrogen 48 mg/dL (7-18) H Creatinine 2.6 MG/DL (0.55-1.30) H Estimat Glomerular Filtration Rate 21.8 mL/min (>60) Glucose Level 216 MG/DL (74-106) H Uric Acid 8.3 MG/DL (2.6-7.2) H Calcium Level 8.4 MG/DL (8.5-10.1) L Phosphorus Level 3.0 MG/DL (2.5-4.9) Magnesium Level 1.9 MG/DL (1.8-2.4) Total Bilirubin 1.2 MG/DL (0.2-1.0) H Direct Bilirubin 0.6 MG/DL (0.0-0.3) H Gamma Glutamyl Transpeptidase 85 U/L (5-85) Aspartate Amino Transf (AST/SGOT) 36 U/L (15-37) Alanine Aminotransferase (ALT/SGPT) 22 U/L (12-78) Alkaline Phosphatase 186 U/L (46-116) H Total Creatine Kinase 63 U/L (26-308) Troponin I 1.342 ng/mL (0.000-0.056) C-Reactive Protein, Quantitative 16.9 mg/dL (0.00-0.90) H Pro-B-Type Natriuretic Peptide 9790 pg/mL (0-125) H Total Protein 7.0 G/DL (6.4-8.2) Albumin 2.6 G/DL (3.4-5.0) L Globulin 4.4 g/dL Albumin/Globulin Ratio 0.6 (1.0-2.7) L Triglycerides Level 47 MG/DL (30-150) Cholesterol Level 80 MG/DL (< 200) LDL Cholesterol 45 mg/dL (<100) HDL Cholesterol 25 MG/DL (40-60) L Cholesterol/HDL Ratio 3.2 (3.3-4.4) L Random Vancomycin Level 11.4 ug/mL Microbiology Date/Time Source Procedure Growth Status 10/11/19 17:14 Blood Blood Culture - Preliminary NO GROWTH AFTER 48 HOURS Resulted 10/11/19 16:50 Blood Blood Culture - Preliminary NO GROWTH AFTER 48 HOURS Resulted 10/11/19 21:15 Nasopharynx Coronavirus COVID-19 PCR ([facility]) - Final Complete Intake and Output 10/13/19 10/14/19 19:00 07:00 Intake Total 944.426 ml 454.047 ml Output Total 1200 ml 1200 ml Balance -255.574 ml -745.953 ml Intake Oral 400 ml IV Total 544.426 ml 454.047 ml Output Urine Total 1200 ml 1200 ml # Voids 1 # Bowel Movements 2 Objective PHYSICAL EXAMINATION: GENERAL: Patient is well-developed, well-nourished, slightly obese female, in no apparent distress. HEENT: Eyes, pupils are equal and responsive to light and accommodation. Extraocular movements are intact. NECK: Supple. No lymphadenopathy. CHEST: Lungs are clear to auscultation bilaterally without wheezes or rales. CARDIOVASCULAR: Regular rate. S1, S2 are normal without murmurs, rubs, or gallops. ABDOMEN: Soft, nontender, nondistended. Positive bowel sounds. No evidence of hepatosplenomegaly. Currently no rebound or guarding noted. EXTREMITIES: Negative for clubbing, cyanosis, or edema. RECTAL/GENITAL: Not performed. NEUROLOGIC: Cranial nerves II to XII grossly intact without focal deficits Assessment/Plan Assessment/Plan ASSESSMENT: This is a 74-year-old female. 1. Sepsis=E. Coli 2. UTI=E. Coli 3. Altered mental status. 4. Leukocytosis. 5. Elevated troponin. 6. Atrial fibrillation. 7. Diabetes type 2. 8. Hypertension. 9. Hyperthyroidism. 10. Coronary artery disease. 11. Renal failure. 12. Hypercholesterolemia. 13. Chronic lymphedema of the bilateral lower extremities. TREATMENT: 1. Urinary Tract infection-E. Coli ABX=meropenem. Infectious Disease=Dr. Mays. We will follow recommendations of Infectious Disease. 2. Sepsis=E. Coli Await culture and sensitivity result. Continue meropenem per ID. 3. Altered mental status. Resolved 4. Leukocytosis. Resolved 5. Elevated troponin. A Cardiology consultation has been obtained with Dr. Arun Barker. 6. Atrial fibrillation. Continue Coumadin as above. A Cardiology consultation has been obtained with Dr. Arun Barker. 7. Diabetes type 2. NovoLog sliding scale has been instituted. 8. Hypertension. Patient is currently hypotensive. Hold amlodipine as above. 9. Hyperthyroidism. Continue methimazole as above. 10. Coronary artery disease. Patient has elevated troponin. A Cardiology consultation has been obtained with Dr. Arun Barker. 11. Renal failure. A Nephrology consultation has been obtained with Dr. Pantera Wallace. 12. Hypercholesterolemia. Continue simvastatin as above. 13. Chronic lymphedema of bilateral lower extremities. Johny Blankenship MD Oct 14, 2019 13:01
--- NOTE | 2019-10-14 15:01 | NUR ---
NURSE NOTES:Patient has cardizem scheduled. patients BP is 98/73. Contacted Dr White for a parameter for medication. awaiting response. Addendum: 10/14/19 at 1503 by Jose Grant RN CHARTED ON WRONG PATIENT. PLEASE IGNORE.
--- NOTE | 2019-10-14 15:08 | Infectious Diseases Prog Note ---
Assessment/Plan Assessment/Plan Assessment: Severe Sepsis Probable PNA- COVID neg x2- on VEnturi mask 8L -10/13 CXR: Mild vascular congestion. Probable small left pleural effusion. -10/10 SARS-COV2 PCR neg -10/09 CXR: Mild interstitial congestion. Cannot rule out small left pleural effusion SARS-COV2 PCR neg UTI c/w bacteremia -u/a wbc tnct, nit neg, leuk +3; ucx >100k E.coli (R Levauin; otherwise S) -10/09 Bcx / E.coli (R levaquin; otherwise S); 10/10 Bcx NTD Fever; recurrent- up to 104 (10/13)- r/o abscess Leukocytosis; SP Acute encephalopathy LG, improving -renal US: Negative for hydronephrosis. Possible nonobstructive left lower pole renal calculi. Incidental finding of bilateral renal parapelvic cysts. morbid obesity HTN Dm2 hx of UTI Afib on coumadin [facility] resident ([facility]) Plan: -Dc empiric IV Vancomycin #5 Meropenem #4 (abx d #5) -10/10 SP cefepime #2 -10/09 SP Meropenem x1 -f/u cx -monitor CBC/CMP, temperatures -COVID19 neg x2; will continue isolation for now -Bcx x2 -Will need CT abd/p (ideally w contrast if Cr normalizes) to eval for occult abscess given bacteremia and high fever Thank you for consulting [facility]. Will continue to follow along with you. Discussed with RN. Subjective Allergies: Coded Allergies: CODEINE (Verified Allergy, Unknown, 10/10/19) Subjective PROGRAM REVIEW DIRECTOR called because of AFIB w/ RVR, hypertension and change in mentation TM 104 on VM at 8L borderline hypotension leukocytosis resolved Cr improving Objective Vital Signs Last 24 Hour Vital Signs Date Time Temp Pulse Resp B/P (MAP) Pulse Ox O2 Delivery O2 Flow Rate FiO2 10/14/19 12:00 97.5 93 20 94/56 (69) 96 10/14/19 12:00 93 10/14/19 10:00 95/63 10/14/19 10:00 74 95/63 10/14/19 09:00 Venturi Mask 8.0 10/14/19 08:00 117 10/14/19 08:00 97.5 93 20 94/56 (69) 96 10/14/19 08:00 97.7 74 22 95/63 (74) 100 10/14/19 07:00 74 18 100 Room Air 21 10/14/19 06:02 104.0 10/14/19 05:18 140 50 91 10/14/19 05:00 102.7 10/14/19 04:00 99.5 60 19 113/95 (101) 95 10/14/19 04:00 100 10/14/19 00:00 85 10/14/19 00:00 98.8 89 19 123/75 (91) 95 10/13/19 21:00 Room Air 10/13/19 20:52 99.3 10/13/19 20:20 67 18 96 Room Air 21 10/13/19 20:16 91 165/96 10/13/19 20:00 87 10/13/19 20:00 99.3 91 19 165/96 (119) 93 10/13/19 16:00 66 10/13/19 16:00 98.1 89 20 144/81 (102) 98 Height (Feet): 5 Height (Inches): 3.00 Weight (Pounds): 325 Objective GENERAL: Patient is well-developed, well-nourished, slightly obese female, in no apparent distress. HEENT: Eyes, pupils are equal and responsive to light and accommodation. Extraocular movements are intact. NECK: Supple. No lymphadenopathy. CHEST: Lungs are clear to auscultation bilaterally without wheezes or rales. CARDIOVASCULAR: Regular rate. S1, S2 are normal without murmurs, rubs, or gallops. ABDOMEN: Soft, nontender, nondistended. Positive bowel sounds. No evidence of hepatosplenomegaly. Currently no rebound or guarding noted. EXTREMITIES: Negative for clubbing, cyanosis, or edema. Microbiology Date/Time Source Procedure Growth Status 10/11/19 17:14 Blood Blood Culture - Preliminary NO GROWTH AFTER 48 HOURS Resulted 10/11/19 16:50 Blood Blood Culture - Preliminary NO GROWTH AFTER 48 HOURS Resulted 10/11/19 21:15 Nasopharynx Coronavirus COVID-19 PCR ([facility]) - Final Complete Laboratory Tests Test 10/13/19 17:20 10/14/19 01:05 10/14/19 04:58 10/14/19 06:30 Activated Partial Thromboplast Time 142 SEC (23-33) H 86 SEC (23-33) H Arterial Blood pH 7.508 (7.350-7.450) Arterial Blood Partial Pressure CO2 28.0 mmHg (35.0-45.0) L Arterial Blood Partial Pressure O2 255.2 mmHg (75.0-100.0) H Arterial Blood HCO3 21.7 mmol/L (22.0-26.0) L Arterial Blood Oxygen Saturation 99.3 % (95-100) Arterial Blood Base Excess -0.4 (-2-2) Hardeep Test Positive White Blood Count 8.2 K/UL (4.8-10.8) # Red Blood Count 4.05 M/UL (4.20-5.40) L Hemoglobin 10.8 G/DL (12.0-16.0) L Hematocrit 32.4 % (37.0-47.0) L Mean Corpuscular Volume 80 FL (80-99) Mean Corpuscular Hemoglobin 26.8 PG (27.0-31.0) L Mean Corpuscular Hemoglobin Concent 33.4 G/DL (32.0-36.0) Red Cell Distribution Width 13.3 % (11.6-14.8) Platelet Count 189 K/UL (150-450) Mean Platelet Volume 8.8 FL (6.5-10.1) Neutrophils (%) (Auto) % (45.0-75.0) Lymphocytes (%) (Auto) % (20.0-45.0) Monocytes (%) (Auto) % (1.0-10.0) Eosinophils (%) (Auto) % (0.0-3.0) Basophils (%) (Auto) % (0.0-2.0) Differential Total Cells Counted 100 Neutrophils % (Manual) 91 % (45-75) H Lymphocytes % (Manual) 4 % (20-45) L Monocytes % (Manual) 5 % (1-10) Eosinophils % (Manual) 0 % (0-3) Basophils % (Manual) 0 % (0-2) Band Neutrophils 0 % (0-8) Platelet Estimate Adequate Platelet Morphology Normal Hypochromasia 1+ Anisocytosis Sodium Level 137 MMOL/L (136-145) Potassium Level 4.0 MMOL/L (3.5-5.1) Chloride Level 99 MMOL/L (98-107) Carbon Dioxide Level 23 MMOL/L (21-32) Anion Gap 15 mmol/L (5-15) Blood Urea Nitrogen 48 mg/dL (7-18) H Creatinine 2.6 MG/DL (0.55-1.30) H Estimat Glomerular Filtration Rate 21.8 mL/min (>60) Glucose Level 216 MG/DL (74-106) H Uric Acid 8.3 MG/DL (2.6-7.2) H Calcium Level 8.4 MG/DL (8.5-10.1) L Phosphorus Level 3.0 MG/DL (2.5-4.9) Magnesium Level 1.9 MG/DL (1.8-2.4) Total Bilirubin 1.2 MG/DL (0.2-1.0) H Direct Bilirubin 0.6 MG/DL (0.0-0.3) H Gamma Glutamyl Transpeptidase 85 U/L (5-85) Aspartate Amino Transf (AST/SGOT) 36 U/L (15-37) Alanine Aminotransferase (ALT/SGPT) 22 U/L (12-78) Alkaline Phosphatase 186 U/L (46-116) H Total Creatine Kinase 63 U/L (26-308) Troponin I 1.342 ng/mL (0.000-0.056) C-Reactive Protein, Quantitative 16.9 mg/dL (0.00-0.90) H Pro-B-Type Natriuretic Peptide 9790 pg/mL (0-125) H Total Protein 7.0 G/DL (6.4-8.2) Albumin 2.6 G/DL (3.4-5.0) L Globulin 4.4 g/dL Albumin/Globulin Ratio 0.6 (1.0-2.7) L Triglycerides Level 47 MG/DL (30-150) Cholesterol Level 80 MG/DL (< 200) LDL Cholesterol 45 mg/dL (<100) HDL Cholesterol 25 MG/DL (40-60) L Cholesterol/HDL Ratio 3.2 (3.3-4.4) L Random Vancomycin Level 11.4 ug/mL Current Medications Medications (Trade) Dose Ordered Sig/Adria Route PRN Reason Start Time Stop Time Status Last Admin Dose Admin Acetaminophen (Tylenol) 650 mg Q4H PRN ORAL fever 10/11/19 08:30 7/4/20 08:29 10/13/19 20:22 Acetaminophen (Tylenol) 650 mg Q4H PRN RECTAL Temp >100.5 10/14/19 06:30 11/13/19 06:29 Albuterol/ Ipratropium (Albuterol/ Ipratropium) 3 ml Q4H PRN HHN Shortness of Breath 10/11/19 08:30 10/15/19 08:29 Aspirin (Ecotrin) 81 mg DAILY ORAL 10/11/19 09:00 11/25/19 08:59 10/14/19 10:00 Atorvastatin Calcium (Lipitor) 40 mg BEDTIME ORAL 10/12/19 21:00 01/10/20 20:59 10/13/19 20:16 Carvedilol (Coreg) 3.125 mg EVERY 12 HOURS ORAL 10/11/19 09:00 11/09/19 20:59 10/13/19 20:16 Clonidine HCl (Catapres Tab) 0.1 mg Q4H PRN ORAL Blood pressure over 160 systol 10/11/19 08:30 01/08/20 08:29 10/12/19 21:59 Dextrose (Dextrose 50%) 25 ml Q30M PRN IV Hypoglycemia 10/11/19 08:30 01/08/20 11:29 Dextrose (Dextrose 50%) 50 ml Q30M PRN IV Hypoglycemia 10/11/19 08:30 01/08/20 11:29 Docusate Sodium (Colace) 100 mg THREE TIMES A DAY ORAL 10/11/19 09:00 11/09/19 17:59 10/13/19 17:36 Gabapentin (Neurontin) 100 mg THREE TIMES A DAY ORAL 10/11/19 09:00 11/09/19 12:59 10/14/19 13:30 Heparin Sodium/ Dextrose 500 ml @ 41.277 mls/ hr ADJUST PER PROTOCOL IV 10/13/19 19:15 11/12/19 19:14 10/14/19 08:35 Insulin Aspart (NovoLOG) BEFORE MEALS AND HS SUBQ 10/11/19 11:30 01/08/20 11:29 10/14/19 12:10 Isosorbide Mononitrate (Imdur) 30 mg DAILY ORAL 10/13/19 09:00 11/12/19 08:59 10/14/19 10:00 Meropenem 500 mg/ Sodium Chloride 55 ml @ 110 mls/hr Q12HR@0500,1700 IVPB 10/11/19 17:00 10/16/19 16:59 10/14/19 05:56 Nitroglycerin (Ntg) 0.4 mg Q5M PRN SL Prn Chest Pain 10/11/19 08:30 11/09/19 11:29 Ondansetron HCl (Zofran) 4 mg Q6H PRN IVP Nausea & Vomiting 10/11/19 08:30 11/09/19 08:29 Pantoprazole (Protonix) 40 mg EVERY 12 HOURS ORAL 10/14/19 21:00 11/13/19 20:59 Polyethylene Glycol (Miralax) 17 gm DAILYPRN PRN ORAL Constipation 10/11/19 08:30 11/09/19 08:29 Temazepam (Restoril) 15 mg HSPRN PRN ORAL Insomnia 10/11/19 11:30 10/17/19 11:29 Vancomycin HCl (Vanco pharmacy to dose) 1 ea DAILY PRN MISC SEPSIS 10/11/19 09:00 11/09/19 11:59 Hannah Mays M.D. Oct 14, 2019 15:08
--- NOTE | 2019-10-14 15:45 | NUR ---
CASE MANAGEMENT:REVIEW 10/14/19 SI: PNA. UTI. FEVER COVID NEGATIVE X2 104.0 140 50 113/95 91% ON RA RAPID RESPONSE CALLED BUN+48 CR+2.6 TROPONIN(+) 1.342 IS: HEPARIN GTT IV MEROPENEM Q12 IMDUR PO QD ASA PO QD COREG PO Q12 NEURONTIN PO TID : TELEMETRY STATUS DCP: FROM [facility]
--- NOTE | 2019-10-14 17:06 | NUR ---
NURSE NOTES:One of the Meropenum antibiotics had been opened and the solution mixed in the IV bag, placed the open meropenum in the return to pharmacy bin and took a new unopened one to administer to the patient.
[2019-10-14 19:14] LABS: HEMATOCRIT 32.1 % (37.0-47.0); HEMOGLOBIN 9.6 G/DL (12.0-16.0); MEAN CORPUSCULAR VOLUME 88 FL (80-99); PLATELET COUNT 189 K/UL (150-450); RED BLOOD COUNT 3.65 M/UL (4.20-5.40)
--- NOTE | 2019-10-14 19:14 | Cardiology Progress Note ---
Assessment/Plan Assessment/Plan 1. Permanent atrial fibrillation, on anticoagulation. 2. Toxic-metabolic encephalopathy. 3. Urinary tract infection, question pyelonephritis. 4. Diabetes mellitus. 5. Hypertension history. 6. Morbid obesity. 7. Myocardial infarction. 8. Acute on chronic renal insufficiency. 9. Coagulopathy secondary to Coumadin. 10. Bacteremia gnr 11. Iron def 12 RV hypokinesis and enlargment covid neg still in isolation as pui for covid 19 remain trop tapering may be related to poulm embolism or cad some of the echo images the rv hypo and somewhat dilated venous duplex non diagnositc ctpa vs v/q when renal fx allow for now remain on heparin for afib adn possible PE bp seems fine repeat trop tapering down wbc is better iv abx tele reviewed afib Subjective Subjective awake, alert, responsive, denies any chest pain or shortness of breath, denies any fever or chills, complained about lower abdominal pain. Objective Last 24 Hour Vital Signs Date Time Temp Pulse Resp B/P (MAP) Pulse Ox O2 Delivery O2 Flow Rate FiO2 10/14/19 16:00 97.7 78 20 107/68 (81) 95 10/14/19 16:00 82 10/14/19 12:00 97.5 93 20 94/56 (69) 96 10/14/19 12:00 93 10/14/19 10:00 95/63 10/14/19 10:00 74 95/63 10/14/19 09:00 Venturi Mask 8.0 10/14/19 08:00 117 10/14/19 08:00 97.5 93 20 94/56 (69) 96 10/14/19 08:00 97.7 74 22 95/63 (74) 100 10/14/19 07:00 74 18 100 Room Air 21 10/14/19 06:02 104.0 10/14/19 05:18 140 50 91 10/14/19 05:00 102.7 10/14/19 04:00 99.5 60 19 113/95 (101) 95 10/14/19 04:00 100 10/14/19 00:00 85 10/14/19 00:00 98.8 89 19 123/75 (91) 95 10/13/19 21:00 Room Air 10/13/19 20:52 99.3 10/13/19 20:20 67 18 96 Room Air 21 10/13/19 20:16 91 165/96 10/13/19 20:00 87 10/13/19 20:00 99.3 91 19 165/96 (119) 93 Intake and Output 10/13/19 10/14/19 19:00 07:00 Intake Total 944.426 ml 454.047 ml Output Total 1200 ml 1200 ml Balance -255.574 ml -745.953 ml Intake Oral 400 ml IV Total 544.426 ml 454.047 ml Output Urine Total 1200 ml 1200 ml # Voids 1 # Bowel Movements 2 Laboratory Tests Test 10/14/19 01:05 10/14/19 04:58 10/14/19 06:30 10/14/19 18:29 Activated Partial Thromboplast Time 86 SEC (23-33) H Arterial Blood pH 7.508 (7.350-7.450) Arterial Blood Partial Pressure CO2 28.0 mmHg (35.0-45.0) L Arterial Blood Partial Pressure O2 255.2 mmHg (75.0-100.0) H Arterial Blood HCO3 21.7 mmol/L (22.0-26.0) L Arterial Blood Oxygen Saturation 99.3 % (95-100) Arterial Blood Base Excess -0.4 (-2-2) Hardeep Test Positive White Blood Count 8.2 K/UL (4.8-10.8) # Pending Red Blood Count 4.05 M/UL (4.20-5.40) L Pending Hemoglobin 10.8 G/DL (12.0-16.0) L Pending Hematocrit 32.4 % (37.0-47.0) L Pending Mean Corpuscular Volume 80 FL (80-99) Pending Mean Corpuscular Hemoglobin 26.8 PG (27.0-31.0) L Pending Mean Corpuscular Hemoglobin Concent 33.4 G/DL (32.0-36.0) Pending Red Cell Distribution Width 13.3 % (11.6-14.8) Pending Platelet Count 189 K/UL (150-450) Pending Mean Platelet Volume 8.8 FL (6.5-10.1) Pending Neutrophils (%) (Auto) % (45.0-75.0) Pending Lymphocytes (%) (Auto) % (20.0-45.0) Pending Monocytes (%) (Auto) % (1.0-10.0) Pending Eosinophils (%) (Auto) % (0.0-3.0) Pending Basophils (%) (Auto) % (0.0-2.0) Pending Differential Total Cells Counted 100 Neutrophils % (Manual) 91 % (45-75) H Lymphocytes % (Manual) 4 % (20-45) L Monocytes % (Manual) 5 % (1-10) Eosinophils % (Manual) 0 % (0-3) Basophils % (Manual) 0 % (0-2) Band Neutrophils 0 % (0-8) Platelet Estimate Adequate Platelet Morphology Normal Hypochromasia 1+ Anisocytosis Sodium Level 137 MMOL/L (136-145) Potassium Level 4.0 MMOL/L (3.5-5.1) Chloride Level 99 MMOL/L (98-107) Carbon Dioxide Level 23 MMOL/L (21-32) Anion Gap 15 mmol/L (5-15) Blood Urea Nitrogen 48 mg/dL (7-18) H Creatinine 2.6 MG/DL (0.55-1.30) H Estimat Glomerular Filtration Rate 21.8 mL/min (>60) Glucose Level 216 MG/DL (74-106) H Uric Acid 8.3 MG/DL (2.6-7.2) H Calcium Level 8.4 MG/DL (8.5-10.1) L Phosphorus Level 3.0 MG/DL (2.5-4.9) Magnesium Level 1.9 MG/DL (1.8-2.4) Total Bilirubin 1.2 MG/DL (0.2-1.0) H Direct Bilirubin 0.6 MG/DL (0.0-0.3) H Gamma Glutamyl Transpeptidase 85 U/L (5-85) Aspartate Amino Transf (AST/SGOT) 36 U/L (15-37) Alanine Aminotransferase (ALT/SGPT) 22 U/L (12-78) Alkaline Phosphatase 186 U/L (46-116) H Total Creatine Kinase 63 U/L (26-308) Troponin I 1.342 ng/mL (0.000-0.056) C-Reactive Protein, Quantitative 16.9 mg/dL (0.00-0.90) H Pro-B-Type Natriuretic Peptide 9790 pg/mL (0-125) H Total Protein 7.0 G/DL (6.4-8.2) Albumin 2.6 G/DL (3.4-5.0) L Globulin 4.4 g/dL Albumin/Globulin Ratio 0.6 (1.0-2.7) L Triglycerides Level 47 MG/DL (30-150) Cholesterol Level 80 MG/DL (< 200) LDL Cholesterol 45 mg/dL (<100) HDL Cholesterol 25 MG/DL (40-60) L Cholesterol/HDL Ratio 3.2 (3.3-4.4) L Random Vancomycin Level 11.4 ug/mL Microbiology Date/Time Source Procedure Growth Status 10/11/19 21:15 Nasopharynx Coronavirus COVID-19 PCR ([facility]) - Final Complete Objective Neck: Supple, no significant jugular venous distention, Lungs: Fair inspiratory effort, decreased air at the bases no Wheeze or Rales. Heart: Regular rate and rhythm, normal S1/S2, no murmurs/gallops Abdomen: soft, lower quadrant tenderness, nondistended. Normoactive bowel sounds , morbid obesity. / Rectal: Refused and deferred. Extremities: No Cyanosis , clubbing, decreased edema Arun Barker MD Oct 14, 2019 19:13
[2019-10-14 19:15] LABS: WHITE BLOOD COUNT 32.1 K/UL (4.8-10.8)
--- NOTE | 2019-10-14 19:30 | NUR ---
NURSE NOTES: Got report from Ollie BEAVERS. Pt in stable condition. No s/s of distress or discomfort noted. Pt resting in bed comfortably. Bed in low and locked position, call light within reach, bedside table within reach. Continue to monitor.
[2019-10-14] MEDS: Atorvastatin 20mg tab ORAL SCH (21:00)
[2019-10-15] VITALS: BP 108/68
[2019-10-15 04:00] VITALS: BP 130/82
[2019-10-15 04:54] LABS: HEMOGLOBIN 9.8 G/DL (12.0-16.0); MEAN CORPUSCULAR VOLUME 81 FL (80-99); PLATELET COUNT 199 K/UL (150-450); RED CELL DISTRIBUTION WIDTH 13.2 % (11.6-14.8)
[2019-10-15] MEDS: Meropenem 500 MG in NS 55 ML IVPB SCH ×2 (05:01→16:35)
[2019-10-15 05:13] LABS: WHITE BLOOD COUNT 27.3 K/UL (4.8-10.8)
[2019-10-15 05:32] LABS: ALANINE AMINOTRANSFERASE 17 U/L (12-78); ALBUMIN 2.3 G/DL (3.4-5.0); ALBUMIN/GLOBULIN RATIO 0.5 (1.0-2.7); ALKALINE PHOSPHATASE 118 U/L (46-116); ANION GAP 9 mmol/L (5-15); ASPARTATE AMINO TRANSFERASE 26 U/L (15-37); BILIRUBIN,TOTAL 0.4 MG/DL (0.2-1.0); BLOOD UREA NITROGEN 55 mg/dL (7-18); CALCIUM 7.9 MG/DL (8.5-10.1); CARBON DIOXIDE 27 MMOL/L (21-32); CHLORIDE 99 MMOL/L (98-107); CREATININE 2.8 MG/DL (0.55-1.30); PHOSPHORUS 4.1 MG/DL (2.5-4.9); POTASSIUM 3.6 MMOL/L (3.5-5.1); SODIUM 135 MMOL/L (136-145)
[2019-10-15] MEDS: NovoLOG Insulin Flexpen SUBQ SCH ×4 (06:34→21:02)
[2019-10-15 08:00] VITALS: BP 114/78
--- NOTE | 2019-10-15 08:15 | NUR ---
HAND-OFF: Report given to Melia BEAVERS.
--- NOTE | 2019-10-15 08:17 | NUR ---
NURSE NOTES: Received patient in bed awake. No SOB or acute distress. IV lines intact. FC intact, draining yellow colored urine. HOB elevated. Bed locked in lowest position. Call light within reach. Will continue plan of care.
--- NOTE | 2019-10-15 08:40 | NUR ---
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 * Altered nutrition related lab values R/T diabetes and cardiac hx as evidenced by elev BGs w/ POC glu (238 232 222 208), elev BNP (9790), elev creat (2.8). 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
[2019-10-15] MEDS: Docusate 100mg cap ORAL SCH ×4 (09:00→18:00)
[2019-10-15] MEDS: Aspirin EC 81mg tab ORAL SCH (09:21)
[2019-10-15] MEDS: Imdur 30mg tab ORAL SCH (09:21)
--- NOTE | 2019-10-15 09:30 | NUR ---
CASE MANAGEMENT:REVIEW 10/15/19 SI: PNA. UTI. FEVER COVID NEGATIVE X2. AC/CHR RENAL INSUFF 97.9 87 18 114/78 98% ON VENTURI MASK WBC=27.3 H/H-9.8/29.0 BUN+55 CR+2.8 LAST TROPONIN(+) 1.342 IS: HEPARIN GTT IV MEROPENEM Q12 IMDUR PO QD ASA PO QD COREG PO Q12 NEURONTIN PO TID : TELEMETRY STATUS DCP: FROM [facility]
--- NOTE | 2019-10-15 09:44 | Nephrology Progress Note ---
Assessment/Plan Problem List: (1) Renal failure (ARF), acute on chronic (2) Diabetes mellitus (3) Morbid obesity (4) Chronic atrial fibrillation (5) History of DVT (deep vein thrombosis) (6) Anemia (7) NSTEMI (non-ST elevated myocardial infarction) (8) Sepsis (9) Pyelonephritis Assessment Renal failure, most likely acute on chronic. Sepsis, leukocytosis, fever, suspected 2019 novel coronavirus infection. Encephalopathy most likely toxic metabolic UTI/pyelonephritis Anemia Atrial fibrillation chronic, with fast ventricular rate. Diabetes mellitus Morbid obesity/limited mobility History of DVT Elevated troponin I Lactic acidosis Plan October 14: Serum creatinine 2.8. No new changes. 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 Leukocytosis persists. Remains on meropenem. Continue per ID. October 13: Serum creatinine continues to lower. Troponin level also declining. Continue per cardiology management. Statins was restarted by cardiology. Continue to monitor renal parameters. October 12: Serum creatinine lowering. Troponin I is also declining. Continue per cardiology management. Will continue to follow-up renal parameters and CPK level. October 11: Statins stopped due to worsening LFTs. 1 dose of Plavix given. Imdur started. Serum creatinine stable. Continue per cardiology. Continue to monitor renal parameters and CPK. Monitor troponin I and CPK Aspirin, Coreg ,nitrate for elevated troponin Antibiotics Echocardiogram results noted Kidney ultrasound results pending Monitor urine output and renal parameters Keep the blood pressure and blood sugar in check Coumadin for DVT and atrial fibrillation IV Protonix Subjective ROS Limited/Unobtainable: No Constitutional: Reports: malaise, weakness Objective Objective Last 24 Hour Vital Signs Date Time Temp Pulse Resp B/P (MAP) Pulse Ox O2 Delivery O2 Flow Rate FiO2 10/15/19 09:21 114/78 10/15/19 09:21 87 114/78 10/15/19 08:00 97.9 87 18 114/78 (90) 98 10/15/19 04:00 99.0 93 18 130/82 (98) 97 10/15/19 04:00 71 10/15/19 00:00 98.9 94 18 108/68 (81) 99 10/15/19 00:00 89 10/14/19 21:00 Venturi Mask 8.0 10/14/19 21:00 93 103/67 10/14/19 20:00 98.1 93 18 103/67 (79) 98 10/14/19 20:00 83 10/14/19 19:20 75 18 100 Room Air 21 10/14/19 16:00 97.7 78 20 107/68 (81) 95 10/14/19 16:00 82 10/14/19 12:00 97.5 93 20 94/56 (69) 96 10/14/19 12:00 93 10/14/19 10:00 95/63 10/14/19 10:00 74 95/63 Intake and Output 10/14/19 10/15/19 19:00 07:00 Output Total 600 ml 400 ml Balance -600 ml -400 ml Output Urine Total 600 ml 400 ml # Voids 1 1 # Bowel Movements 1 Laboratory Tests 10/14/19 18:29: White Blood Count 32.1#*H, Red Blood Count 3.65L, Hemoglobin 9.6L, Hematocrit 32.1L, Mean Corpuscular Volume 88#, Mean Corpuscular Hemoglobin 26.2L, Mean Corpuscular Hemoglobin Concent 29.8L, Red Cell Distribution Width 15.0H, Platelet Count 189, Mean Platelet Volume 12.7H, Neutrophils (%) (Auto) , Lymphocytes (%) (Auto) , Monocytes (%) (Auto) , Eosinophils (%) (Auto) , Basophils (%) (Auto) , Differential Total Cells Counted 100, Neutrophils % ( Manual) 92H, Lymphocytes % (Manual) 1L, Monocytes % (Manual) 6, Eosinophils % ( Manual) 0, Basophils % (Manual) 0, Band Neutrophils 1, Platelet Estimate Adequate, Platelet Morphology Normal, Polychromasia 1+, Hypochromasia 2+, Anisocytosis 2+ 10/15/19 04:15: White Blood Count 27.3*H, Red Blood Count 3.60L, Hemoglobin 9.8L, Hematocrit 29.0L, Mean Corpuscular Volume 81, Mean Corpuscular Hemoglobin 27.1, Mean Corpuscular Hemoglobin Concent 33.7, Red Cell Distribution Width 13.2, Platelet Count 199, Mean Platelet Volume 9.3, Neutrophils (%) (Auto) , Lymphocytes (%) ( Auto) , Monocytes (%) (Auto) , Eosinophils (%) (Auto) , Basophils (%) (Auto) , Differential Total Cells Counted 100, Neutrophils % (Manual) 80H, Lymphocytes % (Manual) 10L, Monocytes % (Manual) 10, Eosinophils % (Manual) 0, Basophils % ( Manual) 0, Band Neutrophils 0, Platelet Estimate Adequate, Platelet Morphology Normal, Hypochromasia 1+, Activated Partial Thromboplast Time 66H, Sodium Level 135L, Potassium Level 3.6, Chloride Level 99, Carbon Dioxide Level 27, Anion Gap 9, Blood Urea Nitrogen 55H, Creatinine 2.8H, Estimat Glomerular Filtration Rate 20.0, Glucose Level 211H, Uric Acid 8.7H, Calcium Level 7.9L, Phosphorus Level 4.1, Magnesium Level 2.1, Total Bilirubin 0.4, Aspartate Amino Transf (AST /SGOT) 26, Alanine Aminotransferase (ALT/SGPT) 17, Alkaline Phosphatase 118H, C- Reactive Protein, Quantitative 33.8H, Total Protein 7.0, Albumin 2.3L, Globulin 4.7, Albumin/Globulin Ratio 0.5L Height (Feet): 5 Height (Inches): 3.00 Weight (Pounds): 325 General Appearance: moderate distress Cardiovascular: tachycardia - Rate 80s Respiratory/Chest: decreased breath sounds Abdomen: distended, other - Obese Pantera Wallace MD Oct 15, 2019 09:44
--- NOTE | 2019-10-15 10:14 | NUR ---
NURSE NOTES: WBC 27.3, Dr Vega aware, no new orders. Patient positive for gram negative rods x1 bottle, Dr Mays aware, with orders for repeat blood culture x2, to be drawn by lab as per label drier.
--- NOTE | 2019-10-15 10:25 | NUR ---
PT EVALUATION NOTE Patient seen for initial evaluation. Patient presents with generalized weakness which impairs patient's ability to perform functional mobility. Patient required max assist for bed mobility which was limited due to c/o pain with mobility. Patient will benefit from skilled inpatient PT intervention to address strength and balance for improved level of functional mobility and safety. Recommend discharge to SNF once medically cleared by MD. Addendum: 10/15/19 at 1209 by JEZ MALLORY PT Amended: Links added.
[2019-10-15 12:00] VITALS: BP 110/72
[2019-10-15] MEDS: Heparin 25,000u/D5W 500ml 500 ML IV SCH (12:24)
--- NOTE | 2019-10-15 12:30 | Pulmonology Progress Note ---
Subjective ROS Limited/Unobtainable: No Constitutional: Reports: no symptoms HEENT: Repors: no symptoms Respiratory: Reports: no symptoms Allergies: Coded Allergies: CODEINE (Verified Allergy, Unknown, 10/10/19) Objective Last 24 Hour Vital Signs Date Time Temp Pulse Resp B/P (MAP) Pulse Ox O2 Delivery O2 Flow Rate FiO2 10/15/19 09:21 114/78 10/15/19 09:21 87 114/78 10/15/19 08:00 97.9 87 18 114/78 (90) 98 10/15/19 04:00 99.0 93 18 130/82 (98) 97 10/15/19 04:00 71 10/15/19 00:00 98.9 94 18 108/68 (81) 99 10/15/19 00:00 89 10/14/19 21:00 Venturi Mask 8.0 10/14/19 21:00 93 103/67 10/14/19 20:00 98.1 93 18 103/67 (79) 98 10/14/19 20:00 83 10/14/19 19:20 75 18 100 Room Air 21 10/14/19 16:00 97.7 78 20 107/68 (81) 95 10/14/19 16:00 82 Intake and Output 10/14/19 10/15/19 19:00 07:00 Output Total 600 ml 400 ml Balance -600 ml -400 ml Output Urine Total 600 ml 400 ml # Voids 1 1 # Bowel Movements 1 General Appearance: WD/WN, no acute distress HEENT: normocephalic, atraumatic, anicteric, mucous membranes moist Respiratory: chest wall non-tender, normal breath sounds Cardiovascular: normal peripheral pulses, irregularly irregular - A fib with controlled HR Abdomen: normal bowel sounds, soft, non tender - obese Extremities: no clubbing, no edema Skin: no rash 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 normal, alert, responsive Musculoskeletal: normal muscle bulk Laboratory Tests 10/14/19 18:29: White Blood Count 32.1#*H, Red Blood Count 3.65L, Hemoglobin 9.6L, Hematocrit 32.1L, Mean Corpuscular Volume 88#, Mean Corpuscular Hemoglobin 26.2L, Mean Corpuscular Hemoglobin Concent 29.8L, Red Cell Distribution Width 15.0H, Platelet Count 189, Mean Platelet Volume 12.7H, Neutrophils (%) (Auto) , Lymphocytes (%) (Auto) , Monocytes (%) (Auto) , Eosinophils (%) (Auto) , Basophils (%) (Auto) , Differential Total Cells Counted 100, Neutrophils % ( Manual) 92H, Lymphocytes % (Manual) 1L, Monocytes % (Manual) 6, Eosinophils % ( Manual) 0, Basophils % (Manual) 0, Band Neutrophils 1, Platelet Estimate Adequate, Platelet Morphology Normal, Polychromasia 1+, Hypochromasia 2+, Anisocytosis 2+ 10/15/19 04:15: White Blood Count 27.3*H, Red Blood Count 3.60L, Hemoglobin 9.8L, Hematocrit 29.0L, Mean Corpuscular Volume 81, Mean Corpuscular Hemoglobin 27.1, Mean Corpuscular Hemoglobin Concent 33.7, Red Cell Distribution Width 13.2, Platelet Count 199, Mean Platelet Volume 9.3, Neutrophils (%) (Auto) , Lymphocytes (%) ( Auto) , Monocytes (%) (Auto) , Eosinophils (%) (Auto) , Basophils (%) (Auto) , Differential Total Cells Counted 100, Neutrophils % (Manual) 80H, Lymphocytes % (Manual) 10L, Monocytes % (Manual) 10, Eosinophils % (Manual) 0, Basophils % ( Manual) 0, Band Neutrophils 0, Platelet Estimate Adequate, Platelet Morphology Normal, Hypochromasia 1+, Activated Partial Thromboplast Time 66H, Sodium Level 135L, Potassium Level 3.6, Chloride Level 99, Carbon Dioxide Level 27, Anion Gap 9, Blood Urea Nitrogen 55H, Creatinine 2.8H, Estimat Glomerular Filtration Rate 20.0, Glucose Level 211H, Uric Acid 8.7H, Calcium Level 7.9L, Phosphorus Level 4.1, Magnesium Level 2.1, Total Bilirubin 0.4, Aspartate Amino Transf (AST /SGOT) 26, Alanine Aminotransferase (ALT/SGPT) 17, Alkaline Phosphatase 118H, C- Reactive Protein, Quantitative 33.8H, Total Protein 7.0, Albumin 2.3L, Globulin 4.7, Albumin/Globulin Ratio 0.5L Current Medications Medications (Trade) Dose Ordered Sig/Adria Route PRN Reason Start Time Stop Time Status Last Admin Dose Admin Acetaminophen (Tylenol) 650 mg Q4H PRN ORAL fever 10/11/19 08:30 7/4/20 08:29 10/13/19 20:22 Acetaminophen (Tylenol) 650 mg Q4H PRN RECTAL Temp >100.5 10/14/19 06:30 11/13/19 06:29 Aspirin (Ecotrin) 81 mg DAILY ORAL 10/11/19 09:00 11/25/19 08:59 10/15/19 09:21 Atorvastatin Calcium (Lipitor) 40 mg BEDTIME ORAL 10/12/19 21:00 01/10/20 20:59 10/14/19 21:00 Carvedilol (Coreg) 3.125 mg EVERY 12 HOURS ORAL 10/11/19 09:00 11/09/19 20:59 10/15/19 09:21 Clonidine HCl (Catapres Tab) 0.1 mg Q4H PRN ORAL Blood pressure over 160 systol 10/11/19 08:30 01/08/20 08:29 10/12/19 21:59 Dextrose (Dextrose 50%) 25 ml Q30M PRN IV Hypoglycemia 10/11/19 08:30 01/08/20 11:29 Dextrose (Dextrose 50%) 50 ml Q30M PRN IV Hypoglycemia 10/11/19 08:30 01/08/20 11:29 Docusate Sodium (Colace) 100 mg THREE TIMES A DAY ORAL 10/11/19 09:00 11/09/19 17:59 10/13/19 17:36 Gabapentin (Neurontin) 100 mg THREE TIMES A DAY ORAL 10/11/19 09:00 11/09/19 12:59 10/15/19 09:21 Heparin Sodium/ Dextrose 500 ml @ 41.277 mls/ hr ADJUST PER PROTOCOL IV 10/13/19 19:15 11/12/19 19:14 10/14/19 08:35 Insulin Aspart (NovoLOG) BEFORE MEALS AND HS SUBQ 10/11/19 11:30 01/08/20 11:29 10/15/19 11:48 Isosorbide Mononitrate (Imdur) 30 mg DAILY ORAL 10/13/19 09:00 11/12/19 08:59 10/15/19 09:21 Meropenem 500 mg/ Sodium Chloride 55 ml @ 110 mls/hr Q12HR@0500,1700 IVPB 10/11/19 17:00 10/16/19 16:59 10/15/19 05:01 Nitroglycerin (Ntg) 0.4 mg Q5M PRN SL Prn Chest Pain 10/11/19 08:30 11/09/19 11:29 Ondansetron HCl (Zofran) 4 mg Q6H PRN IVP Nausea & Vomiting 10/11/19 08:30 11/09/19 08:29 Pantoprazole (Protonix) 40 mg EVERY 12 HOURS ORAL 10/14/19 21:00 11/13/19 20:59 10/15/19 09:21 Polyethylene Glycol (Miralax) 17 gm DAILYPRN PRN ORAL Constipation 10/11/19 08:30 11/09/19 08:29 Temazepam (Restoril) 15 mg HSPRN PRN ORAL Insomnia 10/11/19 11:30 10/17/19 11:29 Assessment/Plan Problems: (1) Sepsis (2) NSTEMI (non-ST elevated myocardial infarction) (3) Renal failure (ARF), acute on chronic (4) Pyelonephritis (5) Atrial fibrillation with rapid ventricular response (6) Chronic atrial fibrillation (7) Limited mobility (8) Anemia (9) Diabetes mellitus (10) Morbid obesity Assessment/Plan WBC still high asymptomatic electrolytes supplement iv abx by ID, Meropenem creatinine is stable now asa, plavix and b idalia cardio suggest "Noninvasive w/u vs cardiac cath when stable from ID standpoint, to evaluate CAD," sliding scale diabetic diet renal studies dvt prophylaxis. Bandar Brownlee MD Oct 15, 2019 12:30
--- NOTE | 2019-10-15 14:11 | Infectious Diseases Prog Note ---
Assessment/Plan Assessment/Plan Assessment: Severe Sepsis Probable PNA- COVID neg x2- sp VEnturi mask 8L- now at RA -10/13 CXR: Mild vascular congestion. Probable small left pleural effusion. -10/10 SARS-COV2 PCR neg -10/09 CXR: Mild interstitial congestion. Cannot rule out small left pleural effusion SARS-COV2 PCR neg UTI c/w bacteremia- persistent bacteremia -u/a wbc tnct, nit neg, leuk +3; ucx >100k E.coli (R Levauin; otherwise S) -10/09 Bcx 08/09 E.coli (R levaquin; otherwise S); 10/10 Bcx 1/ GNR Fever; recurrent- up to 104 (10/13); improving- r/o abscess Leukocytosis; recurrent up to 30s 10/13, now improving Acute encephalopathy LG, worsened -renal US: Negative for hydronephrosis. Possible nonobstructive left lower pole renal calculi. Incidental finding of bilateral renal parapelvic cysts. morbid obesity HTN Dm2 hx of UTI Afib on coumadin ID resident ([facility]) Plan: Meropenem #5 (abx d #6) -10/13 SP IV Vancomycin #5 -10/10 SP cefepime #2 -10/09 SP Meropenem x1 -f/u cx -monitor CBC/CMP, temperatures -COVID19 neg x2; will continue isolation for now given recurrent fever -Bcx x2 -Will need CT abd/p (ideally w contrast if Cr normalizes) to eval for occult abscess given bacteremia and high fever Thank you for consulting [facility]. Will continue to follow along with you. Discussed with RN. Subjective Allergies: Coded Allergies: CODEINE (Verified Allergy, Unknown, 10/10/19) Subjective afebrile >24hrs at RA wbc improving persist bacteremic Objective Vital Signs Last 24 Hour Vital Signs Date Time Temp Pulse Resp B/P (MAP) Pulse Ox O2 Delivery O2 Flow Rate FiO2 10/15/19 12:00 92 10/15/19 12:00 98.4 91 20 110/72 (85) 97 10/15/19 09:21 114/78 10/15/19 09:21 87 114/78 10/15/19 08:00 87 10/15/19 08:00 97.9 87 18 114/78 (90) 98 10/15/19 04:00 99.0 93 18 130/82 (98) 97 10/15/19 04:00 71 10/15/19 00:00 98.9 94 18 108/68 (81) 99 10/15/19 00:00 89 10/14/19 21:00 Venturi Mask 8.0 10/14/19 21:00 93 103/67 10/14/19 20:00 98.1 93 18 103/67 (79) 98 10/14/19 20:00 83 10/14/19 19:20 75 18 100 Room Air 21 10/14/19 16:00 97.7 78 20 107/68 (81) 95 10/14/19 16:00 82 Height (Feet): 5 Height (Inches): 3.00 Weight (Pounds): 325 Objective GENERAL: Patient is well-developed, well-nourished, slightly obese female, in no apparent distress. HEENT: Eyes, pupils are equal and responsive to light and accommodation. Extraocular movements are intact. NECK: Supple. No lymphadenopathy. CHEST: Lungs are clear to auscultation bilaterally without wheezes or rales. CARDIOVASCULAR: Regular rate. S1, S2 are normal without murmurs, rubs, or gallops. ABDOMEN: Soft, nontender, nondistended. Positive bowel sounds. No evidence of hepatosplenomegaly. Currently no rebound or guarding noted. EXTREMITIES: Negative for clubbing, cyanosis, or edema. Laboratory Tests Test 10/14/19 18:29 10/15/19 04:15 White Blood Count 32.1 K/UL (4.8-10.8) #*H 27.3 K/UL (4.8-10.8) *H Red Blood Count 3.65 M/UL (4.20-5.40) L 3.60 M/UL (4.20-5.40) L Hemoglobin 9.6 G/DL (12.0-16.0) L 9.8 G/DL (12.0-16.0) L Hematocrit 32.1 % (37.0-47.0) L 29.0 % (37.0-47.0) L Mean Corpuscular Volume 88 FL (80-99) # 81 FL (80-99) Mean Corpuscular Hemoglobin 26.2 PG (27.0-31.0) L 27.1 PG (27.0-31.0) Mean Corpuscular Hemoglobin Concent 29.8 G/DL (32.0-36.0) L 33.7 G/DL (32.0-36.0) Red Cell Distribution Width 15.0 % (11.6-14.8) H 13.2 % (11.6-14.8) Platelet Count 189 K/UL (150-450) 199 K/UL (150-450) Mean Platelet Volume 12.7 FL (6.5-10.1) H 9.3 FL (6.5-10.1) Neutrophils (%) (Auto) % (45.0-75.0) % (45.0-75.0) Lymphocytes (%) (Auto) % (20.0-45.0) % (20.0-45.0) Monocytes (%) (Auto) % (1.0-10.0) % (1.0-10.0) Eosinophils (%) (Auto) % (0.0-3.0) % (0.0-3.0) Basophils (%) (Auto) % (0.0-2.0) % (0.0-2.0) Differential Total Cells Counted 100 100 Neutrophils % (Manual) 92 % (45-75) H 80 % (45-75) H Lymphocytes % (Manual) 1 % (20-45) L 10 % (20-45) L Monocytes % (Manual) 6 % (1-10) 10 % (1-10) Eosinophils % (Manual) 0 % (0-3) 0 % (0-3) Basophils % (Manual) 0 % (0-2) 0 % (0-2) Band Neutrophils 1 % (0-8) 0 % (0-8) Platelet Estimate Adequate Adequate Platelet Morphology Normal Normal Polychromasia 1+ Hypochromasia 2+ 1+ Anisocytosis 2+ Activated Partial Thromboplast Time 66 SEC (23-33) H Sodium Level 135 MMOL/L (136-145) L Potassium Level 3.6 MMOL/L (3.5-5.1) Chloride Level 99 MMOL/L (98-107) Carbon Dioxide Level 27 MMOL/L (21-32) Anion Gap 9 mmol/L (5-15) Blood Urea Nitrogen 55 mg/dL (7-18) H Creatinine 2.8 MG/DL (0.55-1.30) H Estimat Glomerular Filtration Rate 20.0 mL/min (>60) Glucose Level 211 MG/DL (74-106) H Uric Acid 8.7 MG/DL (2.6-7.2) H Calcium Level 7.9 MG/DL (8.5-10.1) L Phosphorus Level 4.1 MG/DL (2.5-4.9) Magnesium Level 2.1 MG/DL (1.8-2.4) Total Bilirubin 0.4 MG/DL (0.2-1.0) Aspartate Amino Transf (AST/SGOT) 26 U/L (15-37) Alanine Aminotransferase (ALT/SGPT) 17 U/L (12-78) Alkaline Phosphatase 118 U/L (46-116) H C-Reactive Protein, Quantitative 33.8 mg/dL (0.00-0.90) H Total Protein 7.0 G/DL (6.4-8.2) Albumin 2.3 G/DL (3.4-5.0) L Globulin 4.7 g/dL Albumin/Globulin Ratio 0.5 (1.0-2.7) L Current Medications Medications (Trade) Dose Ordered Sig/Adria Route PRN Reason Start Time Stop Time Status Last Admin Dose Admin Acetaminophen (Tylenol) 650 mg Q4H PRN ORAL fever 10/11/19 08:30 11/09/19 08:29 10/13/19 20:22 Acetaminophen (Tylenol) 650 mg Q4H PRN RECTAL Temp >100.5 10/14/19 06:30 11/13/19 06:29 Aspirin (Ecotrin) 81 mg DAILY ORAL 10/11/19 09:00 11/25/19 08:59 10/15/19 09:21 Atorvastatin Calcium (Lipitor) 40 mg BEDTIME ORAL 10/12/19 21:00 01/10/20 20:59 10/14/19 21:00 Carvedilol (Coreg) 3.125 mg EVERY 12 HOURS ORAL 10/11/19 09:00 11/09/19 20:59 10/15/19 09:21 Clonidine HCl (Catapres Tab) 0.1 mg Q4H PRN ORAL Blood pressure over 160 systol 10/11/19 08:30 01/08/20 08:29 10/12/19 21:59 Dextrose (Dextrose 50%) 25 ml Q30M PRN IV Hypoglycemia 10/11/19 08:30 01/08/20 11:29 Dextrose (Dextrose 50%) 50 ml Q30M PRN IV Hypoglycemia 10/11/19 08:30 01/08/20 11:29 Docusate Sodium (Colace) 100 mg THREE TIMES A DAY ORAL 10/11/19 09:00 11/09/19 17:59 10/13/19 17:36 Gabapentin (Neurontin) 100 mg THREE TIMES A DAY ORAL 10/11/19 09:00 11/09/19 12:59 10/15/19 13:12 Heparin Sodium/ Dextrose 500 ml @ 41.277 mls/ hr ADJUST PER PROTOCOL IV 10/13/19 19:15 11/12/19 19:14 10/15/19 12:24 Insulin Aspart (NovoLOG) BEFORE MEALS AND HS SUBQ 10/11/19 11:30 01/08/20 11:29 10/15/19 11:48 Isosorbide Mononitrate (Imdur) 30 mg DAILY ORAL 10/13/19 09:00 11/12/19 08:59 10/15/19 09:21 Meropenem 500 mg/ Sodium Chloride 55 ml @ 110 mls/hr Q12HR@0500,1700 IVPB 10/11/19 17:00 10/16/19 16:59 10/15/19 05:01 Nitroglycerin (Ntg) 0.4 mg Q5M PRN SL Prn Chest Pain 10/11/19 08:30 11/09/19 11:29 Ondansetron HCl (Zofran) 4 mg Q6H PRN IVP Nausea & Vomiting 10/11/19 08:30 11/09/19 08:29 Pantoprazole (Protonix) 40 mg EVERY 12 HOURS ORAL 10/14/19 21:00 11/13/19 20:59 10/15/19 09:21 Polyethylene Glycol (Miralax) 17 gm DAILYPRN PRN ORAL Constipation 10/11/19 08:30 11/09/19 08:29 Temazepam (Restoril) 15 mg HSPRN PRN ORAL Insomnia 10/11/19 11:30 10/17/19 11:29 Hannah Mays M.D. Oct 15, 2019 14:11
[2019-10-15 16:00] VITALS: BP 115/70
--- NOTE | 2019-10-15 16:41 | Internal Med Progress Note ---
Subjective Date of Service: Oct 15, 2019 Physician Name Johny Blankenship Attending Physician Aleksandr Vega MD Current Medications Medications (Trade) Dose Ordered Sig/Adria Route PRN Reason Start Time Stop Time Status Last Admin Dose Admin Acetaminophen (Tylenol) 650 mg Q4H PRN ORAL fever 10/11/19 08:30 11/09/19 08:29 10/13/19 20:22 Acetaminophen (Tylenol) 650 mg Q4H PRN RECTAL Temp >100.5 10/14/19 06:30 11/13/19 06:29 Aspirin (Ecotrin) 81 mg DAILY ORAL 10/11/19 09:00 11/25/19 08:59 10/15/19 09:21 Atorvastatin Calcium (Lipitor) 40 mg BEDTIME ORAL 10/12/19 21:00 01/10/20 20:59 10/14/19 21:00 Carvedilol (Coreg) 3.125 mg EVERY 12 HOURS ORAL 10/11/19 09:00 11/09/19 20:59 10/15/19 09:21 Clonidine HCl (Catapres Tab) 0.1 mg Q4H PRN ORAL Blood pressure over 160 systol 10/11/19 08:30 01/08/20 08:29 10/12/19 21:59 Dextrose (Dextrose 50%) 25 ml Q30M PRN IV Hypoglycemia 10/11/19 08:30 01/08/20 11:29 Dextrose (Dextrose 50%) 50 ml Q30M PRN IV Hypoglycemia 10/11/19 08:30 01/08/20 11:29 Docusate Sodium (Colace) 100 mg THREE TIMES A DAY ORAL 10/11/19 09:00 11/09/19 17:59 10/13/19 17:36 Gabapentin (Neurontin) 100 mg THREE TIMES A DAY ORAL 10/11/19 09:00 11/09/19 12:59 10/15/19 13:12 Heparin Sodium/ Dextrose 500 ml @ 41.277 mls/ hr ADJUST PER PROTOCOL IV 10/13/19 19:15 11/12/19 19:14 10/15/19 12:24 Insulin Aspart (NovoLOG) BEFORE MEALS AND HS SUBQ 10/11/19 11:30 01/08/20 11:29 10/15/19 16:32 Isosorbide Mononitrate (Imdur) 30 mg DAILY ORAL 10/13/19 09:00 11/12/19 08:59 10/15/19 09:21 Meropenem 500 mg/ Sodium Chloride 55 ml @ 110 mls/hr Q12HR@0500,1700 IVPB 10/11/19 17:00 10/16/19 16:59 10/15/19 16:35 Nitroglycerin (Ntg) 0.4 mg Q5M PRN SL Prn Chest Pain 10/11/19 08:30 11/09/19 11:29 Ondansetron HCl (Zofran) 4 mg Q6H PRN IVP Nausea & Vomiting 10/11/19 08:30 11/09/19 08:29 Pantoprazole (Protonix) 40 mg EVERY 12 HOURS ORAL 10/14/19 21:00 11/13/19 20:59 10/15/19 09:21 Polyethylene Glycol (Miralax) 17 gm DAILYPRN PRN ORAL Constipation 10/11/19 08:30 11/09/19 08:29 Temazepam (Restoril) 15 mg HSPRN PRN ORAL Insomnia 10/11/19 11:30 10/17/19 11:29 Allergies: Coded Allergies: CODEINE (Verified Allergy, Unknown, 10/10/19) ROS Limited/Unobtainable: Yes Subjective 74 YO F admitted with altered mental status and fever. Now UTI and sepsis. Cover for Int Med-Dr Vega. Fever to 104F Objective Last Vital Signs Date Time Temp Pulse Resp B/P (MAP) Pulse Ox O2 Delivery O2 Flow Rate FiO2 10/15/19 12:00 92 10/15/19 12:00 98.4 20 110/72 (85) 97 10/15/19 09:00 Room Air 10/14/19 21:00 8.0 10/14/19 19:20 21 Laboratory Tests Test 10/14/19 18:29 10/15/19 04:15 White Blood Count 32.1 K/UL (4.8-10.8) #*H 27.3 K/UL (4.8-10.8) *H Red Blood Count 3.65 M/UL (4.20-5.40) L 3.60 M/UL (4.20-5.40) L Hemoglobin 9.6 G/DL (12.0-16.0) L 9.8 G/DL (12.0-16.0) L Hematocrit 32.1 % (37.0-47.0) L 29.0 % (37.0-47.0) L Mean Corpuscular Volume 88 FL (80-99) # 81 FL (80-99) Mean Corpuscular Hemoglobin 26.2 PG (27.0-31.0) L 27.1 PG (27.0-31.0) Mean Corpuscular Hemoglobin Concent 29.8 G/DL (32.0-36.0) L 33.7 G/DL (32.0-36.0) Red Cell Distribution Width 15.0 % (11.6-14.8) H 13.2 % (11.6-14.8) Platelet Count 189 K/UL (150-450) 199 K/UL (150-450) Mean Platelet Volume 12.7 FL (6.5-10.1) H 9.3 FL (6.5-10.1) Neutrophils (%) (Auto) % (45.0-75.0) % (45.0-75.0) Lymphocytes (%) (Auto) % (20.0-45.0) % (20.0-45.0) Monocytes (%) (Auto) % (1.0-10.0) % (1.0-10.0) Eosinophils (%) (Auto) % (0.0-3.0) % (0.0-3.0) Basophils (%) (Auto) % (0.0-2.0) % (0.0-2.0) Differential Total Cells Counted 100 100 Neutrophils % (Manual) 92 % (45-75) H 80 % (45-75) H Lymphocytes % (Manual) 1 % (20-45) L 10 % (20-45) L Monocytes % (Manual) 6 % (1-10) 10 % (1-10) Eosinophils % (Manual) 0 % (0-3) 0 % (0-3) Basophils % (Manual) 0 % (0-2) 0 % (0-2) Band Neutrophils 1 % (0-8) 0 % (0-8) Platelet Estimate Adequate Adequate Platelet Morphology Normal Normal Polychromasia 1+ Hypochromasia 2+ 1+ Anisocytosis 2+ Activated Partial Thromboplast Time 66 SEC (23-33) H Sodium Level 135 MMOL/L (136-145) L Potassium Level 3.6 MMOL/L (3.5-5.1) Chloride Level 99 MMOL/L (98-107) Carbon Dioxide Level 27 MMOL/L (21-32) Anion Gap 9 mmol/L (5-15) Blood Urea Nitrogen 55 mg/dL (7-18) H Creatinine 2.8 MG/DL (0.55-1.30) H Estimat Glomerular Filtration Rate 20.0 mL/min (>60) Glucose Level 211 MG/DL (74-106) H Uric Acid 8.7 MG/DL (2.6-7.2) H Calcium Level 7.9 MG/DL (8.5-10.1) L Phosphorus Level 4.1 MG/DL (2.5-4.9) Magnesium Level 2.1 MG/DL (1.8-2.4) Total Bilirubin 0.4 MG/DL (0.2-1.0) Aspartate Amino Transf (AST/SGOT) 26 U/L (15-37) Alanine Aminotransferase (ALT/SGPT) 17 U/L (12-78) Alkaline Phosphatase 118 U/L (46-116) H C-Reactive Protein, Quantitative 33.8 mg/dL (0.00-0.90) H Total Protein 7.0 G/DL (6.4-8.2) Albumin 2.3 G/DL (3.4-5.0) L Globulin 4.7 g/dL Albumin/Globulin Ratio 0.5 (1.0-2.7) L Intake and Output 10/14/19 10/15/19 19:00 07:00 Output Total 600 ml 400 ml Balance -600 ml -400 ml Output Urine Total 600 ml 400 ml # Voids 1 1 # Bowel Movements 1 Objective PHYSICAL EXAMINATION: GENERAL: Patient is well-developed, well-nourished, slightly obese female, in no apparent distress. HEENT: Eyes, pupils are equal and responsive to light and accommodation. Extraocular movements are intact. NECK: Supple. No lymphadenopathy. CHEST: Lungs are clear to auscultation bilaterally without wheezes or rales. CARDIOVASCULAR: Regular rate. S1, S2 are normal without murmurs, rubs, or gallops. ABDOMEN: Soft, nontender, nondistended. Positive bowel sounds. No evidence of hepatosplenomegaly. Currently no rebound or guarding noted. EXTREMITIES: Negative for clubbing, cyanosis, or edema. RECTAL/GENITAL: Not performed. NEUROLOGIC: Cranial nerves II to XII grossly intact without focal deficits Assessment/Plan Assessment/Plan ASSESSMENT: This is a 74-year-old female. 1. Sepsis=E. Coli 2. UTI=E. Coli 3. Altered mental status. 4. Leukocytosis. 5. Elevated troponin. 6. Atrial fibrillation. 7. Diabetes type 2. 8. Hypertension. 9. Hyperthyroidism. 10. Coronary artery disease. 11. Renal failure. 12. Hypercholesterolemia. 13. Chronic lymphedema of the bilateral lower extremities. 14. fever TREATMENT: 1. Urinary Tract infection-E. Coli ABX=meropenem. Infectious Disease=Dr. Mays. We will follow recommendations of Infectious Disease. 2. Sepsis=E. Coli Await culture and sensitivity result. Continue meropenem per ID. 3. Altered mental status. Resolved 4. Leukocytosis. Resolved 5. Elevated troponin. A Cardiology consultation has been obtained with Dr. Arun Barker. 6. Atrial fibrillation. Continue Coumadin as above. A Cardiology consultation has been obtained with Dr. Arun Barker. 7. Diabetes type 2. NovoLog sliding scale has been instituted. 8. Hypertension. Patient is currently hypotensive. Hold amlodipine as above. 9. Hyperthyroidism. Continue methimazole as above. 10. Coronary artery disease. Patient has elevated troponin. A Cardiology consultation has been obtained with Dr. Arun Barker. 11. Renal failure. A Nephrology consultation has been obtained with Dr. Pantera Wallace. 12. Hypercholesterolemia. Continue simvastatin as above. 13. Chronic lymphedema of bilateral lower extremities. 14. Will need CT abdomen/pelvis to R/O abscess-see ID note. Johny Blankenship MD Oct 15, 2019 16:41
--- NOTE | 2019-10-15 17:09 | Cardiology Progress Note ---
Assessment/Plan Assessment/Plan 1. Permanent atrial fibrillation, on anticoagulation. 2. Toxic-metabolic encephalopathy. 3. Urinary tract infection, question pyelonephritis. 4. Diabetes mellitus. 5. Hypertension history. 6. Morbid obesity. 7. Myocardial infarction. 8. Acute on chronic renal insufficiency. 9. Coagulopathy secondary to Coumadin. 10. Bacteremia gnr 11. Iron def 12 RV hypokinesis and enlargment covid neg still in isolation as remains pui for covid 19 trop tapering may be related to poulm embolism or cad some of the echo images the rv hypo and somewhat dilated venous duplex non diagnositc ctpa vs v/q if and renal fx allow for now remain on heparin for afib adn possible PE bp seems fine repeat trop tapering down wbc is sig increased with fever yest and gnr bctermeia iv abx tele reviewed afib hav afever of 104 yeat now afebril bp see ok at the moment repeat ekg adn trop in am Subjective Subjective No SOB or acute distress. IV lines intact. FC intact, draining yellow colored urine. Pt resting in bed comfortably Objective Last 24 Hour Vital Signs Date Time Temp Pulse Resp B/P (MAP) Pulse Ox O2 Delivery O2 Flow Rate FiO2 10/15/19 12:00 92 10/15/19 12:00 98.4 91 20 110/72 (85) 97 10/15/19 09:21 114/78 10/15/19 09:21 87 114/78 10/15/19 09:00 Room Air 10/15/19 08:00 87 10/15/19 08:00 97.9 87 18 114/78 (90) 98 10/15/19 04:00 99.0 93 18 130/82 (98) 97 10/15/19 04:00 71 10/15/19 00:00 98.9 94 18 108/68 (81) 99 10/15/19 00:00 89 10/14/19 21:00 Venturi Mask 8.0 10/14/19 21:00 93 103/67 10/14/19 20:00 98.1 93 18 103/67 (79) 98 10/14/19 20:00 83 10/14/19 19:20 75 18 100 Room Air 21 General Appearance: patient on isolation, isolation precautions Intake and Output 10/14/19 10/15/19 19:00 07:00 Output Total 600 ml 400 ml Balance -600 ml -400 ml Output Urine Total 600 ml 400 ml # Voids 1 1 # Bowel Movements 1 Laboratory Tests Test 10/14/19 18:29 10/15/19 04:15 White Blood Count 32.1 K/UL (4.8-10.8) #*H 27.3 K/UL (4.8-10.8) *H Red Blood Count 3.65 M/UL (4.20-5.40) L 3.60 M/UL (4.20-5.40) L Hemoglobin 9.6 G/DL (12.0-16.0) L 9.8 G/DL (12.0-16.0) L Hematocrit 32.1 % (37.0-47.0) L 29.0 % (37.0-47.0) L Mean Corpuscular Volume 88 FL (80-99) # 81 FL (80-99) Mean Corpuscular Hemoglobin 26.2 PG (27.0-31.0) L 27.1 PG (27.0-31.0) Mean Corpuscular Hemoglobin Concent 29.8 G/DL (32.0-36.0) L 33.7 G/DL (32.0-36.0) Red Cell Distribution Width 15.0 % (11.6-14.8) H 13.2 % (11.6-14.8) Platelet Count 189 K/UL (150-450) 199 K/UL (150-450) Mean Platelet Volume 12.7 FL (6.5-10.1) H 9.3 FL (6.5-10.1) Neutrophils (%) (Auto) % (45.0-75.0) % (45.0-75.0) Lymphocytes (%) (Auto) % (20.0-45.0) % (20.0-45.0) Monocytes (%) (Auto) % (1.0-10.0) % (1.0-10.0) Eosinophils (%) (Auto) % (0.0-3.0) % (0.0-3.0) Basophils (%) (Auto) % (0.0-2.0) % (0.0-2.0) Differential Total Cells Counted 100 100 Neutrophils % (Manual) 92 % (45-75) H 80 % (45-75) H Lymphocytes % (Manual) 1 % (20-45) L 10 % (20-45) L Monocytes % (Manual) 6 % (1-10) 10 % (1-10) Eosinophils % (Manual) 0 % (0-3) 0 % (0-3) Basophils % (Manual) 0 % (0-2) 0 % (0-2) Band Neutrophils 1 % (0-8) 0 % (0-8) Platelet Estimate Adequate Adequate Platelet Morphology Normal Normal Polychromasia 1+ Hypochromasia 2+ 1+ Anisocytosis 2+ Activated Partial Thromboplast Time 66 SEC (23-33) H Sodium Level 135 MMOL/L (136-145) L Potassium Level 3.6 MMOL/L (3.5-5.1) Chloride Level 99 MMOL/L (98-107) Carbon Dioxide Level 27 MMOL/L (21-32) Anion Gap 9 mmol/L (5-15) Blood Urea Nitrogen 55 mg/dL (7-18) H Creatinine 2.8 MG/DL (0.55-1.30) H Estimat Glomerular Filtration Rate 20.0 mL/min (>60) Glucose Level 211 MG/DL (74-106) H Uric Acid 8.7 MG/DL (2.6-7.2) H Calcium Level 7.9 MG/DL (8.5-10.1) L Phosphorus Level 4.1 MG/DL (2.5-4.9) Magnesium Level 2.1 MG/DL (1.8-2.4) Total Bilirubin 0.4 MG/DL (0.2-1.0) Aspartate Amino Transf (AST/SGOT) 26 U/L (15-37) Alanine Aminotransferase (ALT/SGPT) 17 U/L (12-78) Alkaline Phosphatase 118 U/L (46-116) H C-Reactive Protein, Quantitative 33.8 mg/dL (0.00-0.90) H Total Protein 7.0 G/DL (6.4-8.2) Albumin 2.3 G/DL (3.4-5.0) L Globulin 4.7 g/dL Albumin/Globulin Ratio 0.5 (1.0-2.7) L Objective Neck: Supple, no significant jugular venous distention, Lungs: Fair inspiratory effort, decreased air at the bases no Wheeze or Rales. Heart: Regular rate and rhythm, normal S1/S2, no murmurs/gallops Abdomen: soft, lower quadrant tenderness, nondistended. Normoactive bowel sounds , morbid obesity. / Rectal: Refused and deferred. Extremities: No Cyanosis , clubbing, decreased edema Arun Barker MD Oct 15, 2019 17:09
--- NOTE | 2019-10-15 19:50 | NUR ---
NURSE NOTES: Received pt from Melia, RN. Pt awake, alert, and talkative. Bed in lowest position. Call light within reach. Will continue to monitor.
[2019-10-15 20:00] VITALS: BP 131/65
[2019-10-15] MEDS: Atorvastatin 20mg tab ORAL SCH (21:01)
[2019-10-16] VITALS: BP 130/83
[2019-10-16] MEDS: Heparin 25,000u/D5W 500ml 500 ML IV SCH (01:56)
[2019-10-16 04:00] VITALS: BP 132/83
[2019-10-16 04:20] LABS: BASOPHILS % (AUTO) 0.7 % (0.0-2.0); EOSINOPHILS % (AUTO) 0.9 % (0.0-3.0); HEMATOCRIT 27.7 % (37.0-47.0); HEMOGLOBIN 9.5 G/DL (12.0-16.0); LYMPHOCYTES % (AUTO) 7.9 % (20.0-45.0); MEAN CORPUSCULAR VOLUME 79 FL (80-99); MONOCYTES % (AUTO) 9.6 % (1.0-10.0); PLATELET COUNT 246 K/UL (150-450); RED BLOOD COUNT 3.51 M/UL (4.20-5.40); RED CELL DISTRIBUTION WIDTH 13.2 % (11.6-14.8)
[2019-10-16 04:36] LABS: ALANINE AMINOTRANSFERASE 13 U/L (12-78); ALBUMIN 2.2 G/DL (3.4-5.0); ALBUMIN/GLOBULIN RATIO 0.5 (1.0-2.7); ALKALINE PHOSPHATASE 107 U/L (46-116); ANION GAP 9 mmol/L (5-15); ASPARTATE AMINO TRANSFERASE 17 U/L (15-37); BILIRUBIN,TOTAL 0.5 MG/DL (0.2-1.0); BLOOD UREA NITROGEN 51 mg/dL (7-18); CALCIUM 8.6 MG/DL (8.5-10.1); CARBON DIOXIDE 27 MMOL/L (21-32); CHLORIDE 100 MMOL/L (98-107); CREATININE 2.6 MG/DL (0.55-1.30); PHOSPHORUS 3.7 MG/DL (2.5-4.9); POTASSIUM 3.9 MMOL/L (3.5-5.1); SODIUM 136 MMOL/L (136-145)
[2019-10-16] MEDS ORDERED: Heparin 25,000u/D5W 500ml 500 ML IV SCH ×4 (05:00→19:49)
[2019-10-16] MEDS ORDERED: Heparin 5000 units/ml inj IV SCH ×3 (05:00→19:48)
[2019-10-16] MEDS: Meropenem 500 MG in NS 55 ML IVPB SCH ×2 (05:26→17:28)
[2019-10-16] MEDS: NovoLOG Insulin Flexpen SUBQ SCH ×4 (05:39→21:00)
--- NOTE | 2019-10-16 07:30 | NUR ---
NURSE NOTES: Patient received from Roxanna BEAVERS. Alert and oriented x4. Resting comfortably in bed. Not in distress. On room air IV site patent and intact with 22G at the right forearm. Bed in lowest position and locked. Will continue plan of care.
--- NOTE | 2019-10-16 07:42 | NUR ---
HAND-OFF: Report given to RUTHANN Ortega. Pt stable.
[2019-10-16 08:00] VITALS: BP 124/65
[2019-10-16] MEDS: Docusate 100mg cap ORAL SCH ×3 (09:35→17:47)
[2019-10-16] MEDS: Aspirin EC 81mg tab ORAL SCH (09:36)
[2019-10-16] MEDS: Imdur 30mg tab ORAL SCH (09:36)
--- NOTE | 2019-10-16 09:55 | NUR ---
CASE MANAGEMENT:REVIEW 10/16/19 SI: PNA. UTI. AMI COVID NEGATIVE X2. AC/CHR RENAL INSUFF 99.9 88 19 124/65 97% ON RA WBC+17.0 BUN+51 CR+2.6 TROPONIN(+) 0.720 BNP+12819 PTT+55 IS: HEPARIN GTT IV MEROPENEM Q12 IMDUR PO QD ASA PO QD COREG PO Q12 NEURONTIN PO TID : TELEMETRY STATUS DCP: FROM [facility]
--- NOTE | 2019-10-16 10:03 | Nephrology Progress Note ---
Assessment/Plan Problem List: (1) Renal failure (ARF), acute on chronic (2) Diabetes mellitus (3) Morbid obesity (4) Chronic atrial fibrillation (5) History of DVT (deep vein thrombosis) (6) Anemia (7) NSTEMI (non-ST elevated myocardial infarction) (8) Sepsis (9) Pyelonephritis Assessment Renal failure, most likely acute on chronic. Sepsis, leukocytosis, fever, suspected 2019 novel coronavirus infection. Encephalopathy most likely toxic metabolic UTI/pyelonephritis Anemia Atrial fibrillation chronic, with fast ventricular rate. Diabetes mellitus Morbid obesity/limited mobility History of DVT Elevated troponin I Lactic acidosis Plan October 15: Serum creatinine lowered to 2.6. White blood cell count is also down to 17,000. Not much to add from renal standpoint of view. Continue per cardiology and per ID. October 14: Serum creatinine 2.8. No new changes. Continue per ssis developer. Leukocytosis persists. Remains on meropenem. Continue per ID. October 13: Serum creatinine continues to lower. Troponin level also declining. Continue per cardiology management. Statins was restarted by cardiology. Continue to monitor renal parameters. October 12: Serum creatinine lowering. Troponin I is also declining. Continue per cardiology management. Will continue to follow-up renal parameters and CPK level. October 11: Statins stopped due to worsening LFTs. 1 dose of Plavix given. Imdur started. Serum creatinine stable. Continue per cardiology. Continue to monitor renal parameters and CPK. Monitor troponin I and CPK Aspirin, Coreg ,nitrate for elevated troponin Antibiotics Echocardiogram results noted Kidney ultrasound results pending Monitor urine output and renal parameters Keep the blood pressure and blood sugar in check Coumadin for DVT and atrial fibrillation IV Protonix Subjective ROS Limited/Unobtainable: No Constitutional: Reports: malaise, weakness Objective Objective Last 24 Hour Vital Signs Date Time Temp Pulse Resp B/P (MAP) Pulse Ox O2 Delivery O2 Flow Rate FiO2 10/16/19 09:36 124/65 10/16/19 09:36 88 124/65 10/16/19 08:00 97.5 88 19 124/65 (84) 97 10/16/19 04:00 88 10/16/19 04:00 97.7 77 18 132/83 (99) 96 10/16/19 00:00 78 10/16/19 00:00 99.9 86 18 130/83 (99) 97 10/15/19 21:01 84 131/65 10/15/19 21:00 Room Air 10/15/19 20:14 86 18 96 Room Air 21 10/15/19 20:00 79 10/15/19 20:00 97.5 84 18 131/65 (87) 95 10/15/19 16:00 98.2 90 18 115/70 (85) 98 10/15/19 16:00 92 10/15/19 12:00 92 10/15/19 12:00 98.4 91 20 110/72 (85) 97 Intake and Output 10/15/19 10/16/19 19:00 07:00 Intake Total 240 ml Output Total 1500 ml 720 ml Balance -1260 ml -720 ml Intake Oral 240 ml Output Urine Total 1500 ml 720 ml # Bowel Movements 2 Laboratory Tests 10/16/19 04:10: White Blood Count 17.0H, Red Blood Count 3.51L, Hemoglobin 9.5L, Hematocrit 27.7L, Mean Corpuscular Volume 79L, Mean Corpuscular Hemoglobin 27.1, Mean Corpuscular Hemoglobin Concent 34.4, Red Cell Distribution Width 13.2, Platelet Count 246, Mean Platelet Volume 9.2, Neutrophils (%) (Auto) 81.0H, Lymphocytes ( %) (Auto) 7.9L, Monocytes (%) (Auto) 9.6, Eosinophils (%) (Auto) 0.9, Basophils (%) (Auto) 0.7, Erythrocyte Sedimentation Rate 115H, Activated Partial Thromboplast Time 55H, Sodium Level 136, Potassium Level 3.9, Chloride Level 100 , Carbon Dioxide Level 27, Anion Gap 9, Blood Urea Nitrogen 51H, Creatinine 2.6H , Estimat Glomerular Filtration Rate 21.8, Glucose Level 196H, Calcium Level 8.6 , Phosphorus Level 3.7, Magnesium Level 2.0, Total Bilirubin 0.5, Aspartate Amino Transf (AST/SGOT) 17, Alanine Aminotransferase (ALT/SGPT) 13, Alkaline Phosphatase 107, Troponin I 0.720H, C-Reactive Protein, Quantitative 15.4H, Pro- B-Type Natriuretic Peptide 39137B, Total Protein 6.9, Albumin 2.2L, Globulin 4.7 , Albumin/Globulin Ratio 0.5L Height (Feet): 5 Height (Inches): 3.00 Weight (Pounds): 323 General Appearance: no apparent distress, lethargic Cardiovascular: tachycardia - Rate 80s Respiratory/Chest: decreased breath sounds Abdomen: other - Obese Pantera Wallace MD Oct 16, 2019 10:03
[2019-10-16 12:00] VITALS: BP 116/72
--- NOTE | 2019-10-16 12:25 | Infectious Diseases Prog Note ---
Assessment/Plan Assessment/Plan Assessment: Severe Sepsis Probable PNA- COVID neg x2- sp VEnturi mask 8L- now at RA -10/13 CXR: Mild vascular congestion. Probable small left pleural effusion. -10/10 SARS-COV2 PCR neg -10/09 CXR: Mild interstitial congestion. Cannot rule out small left pleural effusion SARS-COV2 PCR neg UTI c/w bacteremia- persistent bacteremia -u/a wbc tnct, nit neg, leuk +3; ucx >100k E.coli (R Levauin; otherwise S) -10/09 Bcx 08/09 E.coli (R levaquin; otherwise S); 10/10 Bcx / GNR; 10/13 BCx NTD Fever; recurrent- up to 104 (10/13);SP- r/o abscess Leukocytosis; recurrent up to 30s 10/13, now improving Acute encephalopathy; improving LG, worsened, now improving -renal US: Negative for hydronephrosis. Possible nonobstructive left lower pole renal calculi. Incidental finding of bilateral renal parapelvic cysts. morbid obesity HTN Dm2 hx of UTI Afib on coumadin [place] resident ([facility]) Plan: Meropenem #6 (abx d #11/18) pending GNR ID bcx 10/10 -10/13 SP IV Vancomycin #5 -10/10 SP cefepime #2 -10/09 SP Meropenem x1 -f/u cx -monitor CBC/CMP, temperatures -COVID19 neg x2; will continue isolation for now given recurrent fever; will continue until afebrile for 72hrs -f/u repeat Bcx x2 -Will need CT abd/p (ideally w contrast if Cr normalizes) to eval for occult abscess given bacteremia and high fever Thank you for consulting [facility]. Will continue to follow along with you. Discussed with RN. Subjective Allergies: Coded Allergies: CODEINE (Verified Allergy, Unknown, 10/10/19) Subjective afebrile >48hrs at RA wbc improving latest BCx NTD Objective Vital Signs Last 24 Hour Vital Signs Date Time Temp Pulse Resp B/P (MAP) Pulse Ox O2 Delivery O2 Flow Rate FiO2 10/16/19 12:00 97.5 81 20 116/72 (87) 98 10/16/19 09:36 124/65 10/16/19 09:36 88 124/65 10/16/19 09:00 Room Air 10/16/19 08:00 77 10/16/19 08:00 97.5 88 19 124/65 (84) 97 10/16/19 04:00 88 10/16/19 04:00 97.7 77 18 132/83 (99) 96 10/16/19 00:00 78 10/16/19 00:00 99.9 86 18 130/83 (99) 97 10/15/19 21:01 84 131/65 10/15/19 21:00 Room Air 10/15/19 20:14 86 18 96 Room Air 21 10/15/19 20:00 79 10/15/19 20:00 97.5 84 18 131/65 (87) 95 10/15/19 16:00 98.2 90 18 115/70 (85) 98 10/15/19 16:00 92 Height (Feet): 5 Height (Inches): 3.00 Weight (Pounds): 323 Objective GENERAL: Patient is well-developed, well-nourished, slightly obese female, in no apparent distress. HEENT: Eyes, pupils are equal and responsive to light and accommodation. Extraocular movements are intact. NECK: Supple. No lymphadenopathy. CHEST: Lungs are clear to auscultation bilaterally without wheezes or rales. CARDIOVASCULAR: Regular rate. S1, S2 are normal without murmurs, rubs, or gallops. ABDOMEN: Soft, nontender, nondistended. Positive bowel sounds. No evidence of hepatosplenomegaly. Currently no rebound or guarding noted. EXTREMITIES: Negative for clubbing, cyanosis, or edema. Microbiology Date/Time Source Procedure Growth Status 10/14/19 18:29 Blood Blood Culture - Preliminary NO GROWTH AFTER 24 HOURS Resulted 10/14/19 18:20 Blood Blood Culture - Preliminary NO GROWTH AFTER 24 HOURS Resulted Laboratory Tests Test 10/16/19 04:10 10/16/19 11:35 White Blood Count 17.0 K/UL (4.8-10.8) H Red Blood Count 3.51 M/UL (4.20-5.40) L Hemoglobin 9.5 G/DL (12.0-16.0) L Hematocrit 27.7 % (37.0-47.0) L Mean Corpuscular Volume 79 FL (80-99) L Mean Corpuscular Hemoglobin 27.1 PG (27.0-31.0) Mean Corpuscular Hemoglobin Concent 34.4 G/DL (32.0-36.0) Red Cell Distribution Width 13.2 % (11.6-14.8) Platelet Count 246 K/UL (150-450) Mean Platelet Volume 9.2 FL (6.5-10.1) Neutrophils (%) (Auto) 81.0 % (45.0-75.0) H Lymphocytes (%) (Auto) 7.9 % (20.0-45.0) L Monocytes (%) (Auto) 9.6 % (1.0-10.0) Eosinophils (%) (Auto) 0.9 % (0.0-3.0) Basophils (%) (Auto) 0.7 % (0.0-2.0) Erythrocyte Sedimentation Rate 115 MM/HR (0-30) H Activated Partial Thromboplast Time 55 SEC (23-33) H Pending Sodium Level 136 MMOL/L (136-145) Potassium Level 3.9 MMOL/L (3.5-5.1) Chloride Level 100 MMOL/L (98-107) Carbon Dioxide Level 27 MMOL/L (21-32) Anion Gap 9 mmol/L (5-15) Blood Urea Nitrogen 51 mg/dL (7-18) H Creatinine 2.6 MG/DL (0.55-1.30) H Estimat Glomerular Filtration Rate 21.8 mL/min (>60) Glucose Level 196 MG/DL (74-106) H Calcium Level 8.6 MG/DL (8.5-10.1) Phosphorus Level 3.7 MG/DL (2.5-4.9) Magnesium Level 2.0 MG/DL (1.8-2.4) Total Bilirubin 0.5 MG/DL (0.2-1.0) Aspartate Amino Transf (AST/SGOT) 17 U/L (15-37) Alanine Aminotransferase (ALT/SGPT) 13 U/L (12-78) Alkaline Phosphatase 107 U/L (46-116) Troponin I 0.720 ng/mL (0.000-0.056) C-Reactive Protein, Quantitative 15.4 mg/dL (0.00-0.90) H Pro-B-Type Natriuretic Peptide 00591 pg/mL (0-125) H Total Protein 6.9 G/DL (6.4-8.2) Albumin 2.2 G/DL (3.4-5.0) L Globulin 4.7 g/dL Albumin/Globulin Ratio 0.5 (1.0-2.7) L Current Medications Medications (Trade) Dose Ordered Sig/Adria Route PRN Reason Start Time Stop Time Status Last Admin Dose Admin Acetaminophen (Tylenol) 650 mg Q4H PRN ORAL fever 10/11/19 08:30 11/09/19 08:29 10/13/19 20:22 Acetaminophen (Tylenol) 650 mg Q4H PRN RECTAL Temp >100.5 10/14/19 06:30 11/13/19 06:29 Aspirin (Ecotrin) 81 mg DAILY ORAL 10/11/19 09:00 11/25/19 08:59 10/16/19 09:36 Atorvastatin Calcium (Lipitor) 40 mg BEDTIME ORAL 10/12/19 21:00 01/10/20 20:59 10/15/19 21:01 Carvedilol (Coreg) 3.125 mg EVERY 12 HOURS ORAL 10/11/19 09:00 11/09/19 20:59 10/16/19 09:36 Clonidine HCl (Catapres Tab) 0.1 mg Q4H PRN ORAL Blood pressure over 160 systol 10/11/19 08:30 01/08/20 08:29 10/12/19 21:59 Dextrose (Dextrose 50%) 25 ml Q30M PRN IV Hypoglycemia 10/11/19 08:30 01/08/20 11:29 Dextrose (Dextrose 50%) 50 ml Q30M PRN IV Hypoglycemia 10/11/19 08:30 01/08/20 11:29 Docusate Sodium (Colace) 100 mg THREE TIMES A DAY ORAL 10/11/19 09:00 11/09/19 17:59 10/13/19 17:36 Gabapentin (Neurontin) 100 mg THREE TIMES A DAY ORAL 10/11/19 09:00 11/09/19 12:59 10/16/19 09:36 Heparin Sodium/ Dextrose 500 ml @ 47.174 mls/ hr ADJUST PER PROTOCOL IV 10/16/19 05:00 11/15/19 04:59 10/16/19 05:27 Insulin Aspart (NovoLOG) BEFORE MEALS AND HS SUBQ 10/11/19 11:30 01/08/20 11:29 10/16/19 05:39 Isosorbide Mononitrate (Imdur) 30 mg DAILY ORAL 10/13/19 09:00 11/12/19 08:59 10/16/19 09:36 Meropenem 500 mg/ Sodium Chloride 55 ml @ 110 mls/hr Q12HR@0500,1700 IVPB 10/11/19 17:00 10/16/19 16:59 10/16/19 05:26 Nitroglycerin (Ntg) 0.4 mg Q5M PRN SL Prn Chest Pain 10/11/19 08:30 11/09/19 11:29 Ondansetron HCl (Zofran) 4 mg Q6H PRN IVP Nausea & Vomiting 10/11/19 08:30 11/09/19 08:29 Pantoprazole (Protonix) 40 mg EVERY 12 HOURS ORAL 10/14/19 21:00 11/13/19 20:59 10/16/19 09:36 Polyethylene Glycol (Miralax) 17 gm DAILYPRN PRN ORAL Constipation 10/11/19 08:30 11/09/19 08:29 Temazepam (Restoril) 15 mg HSPRN PRN ORAL Insomnia 10/11/19 11:30 10/17/19 11:29 Hannah Mays M.D. Oct 16, 2019 12:25
--- NOTE | 2019-10-16 12:51 | Pulmonology Progress Note ---
Subjective ROS Limited/Unobtainable: No Constitutional: Reports: no symptoms HEENT: Repors: no symptoms Respiratory: Reports: no symptoms Allergies: Coded Allergies: CODEINE (Verified Allergy, Unknown, 10/10/19) Objective Last 24 Hour Vital Signs Date Time Temp Pulse Resp B/P (MAP) Pulse Ox O2 Delivery O2 Flow Rate FiO2 10/16/19 12:00 97.5 81 20 116/72 (87) 98 10/16/19 09:36 124/65 10/16/19 09:36 88 124/65 10/16/19 09:00 Room Air 10/16/19 08:00 77 10/16/19 08:00 97.5 88 19 124/65 (84) 97 10/16/19 04:00 88 10/16/19 04:00 97.7 77 18 132/83 (99) 96 10/16/19 00:00 78 10/16/19 00:00 99.9 86 18 130/83 (99) 97 10/15/19 21:01 84 131/65 10/15/19 21:00 Room Air 10/15/19 20:14 86 18 96 Room Air 21 10/15/19 20:00 79 10/15/19 20:00 97.5 84 18 131/65 (87) 95 10/15/19 16:00 98.2 90 18 115/70 (85) 98 10/15/19 16:00 92 Intake and Output 10/15/19 10/16/19 19:00 07:00 Intake Total 240 ml Output Total 1500 ml 720 ml Balance -1260 ml -720 ml Intake Oral 240 ml Output Urine Total 1500 ml 720 ml # Bowel Movements 2 General Appearance: WD/WN, no acute distress HEENT: normocephalic, atraumatic, anicteric, mucous membranes moist Respiratory: chest wall non-tender, normal breath sounds Cardiovascular: normal peripheral pulses, irregularly irregular - A fib with controlled HR Abdomen: normal bowel sounds, soft, non tender - obese Extremities: no clubbing, no edema Skin: no rash 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 normal, alert, responsive Musculoskeletal: normal muscle bulk Microbiology Date/Time Source Procedure Growth Status 10/14/19 18:29 Blood Blood Culture - Preliminary NO GROWTH AFTER 24 HOURS Resulted 10/14/19 18:20 Blood Blood Culture - Preliminary NO GROWTH AFTER 24 HOURS Resulted Laboratory Tests 10/16/19 04:10: White Blood Count 17.0H, Red Blood Count 3.51L, Hemoglobin 9.5L, Hematocrit 27.7L, Mean Corpuscular Volume 79L, Mean Corpuscular Hemoglobin 27.1, Mean Corpuscular Hemoglobin Concent 34.4, Red Cell Distribution Width 13.2, Platelet Count 246, Mean Platelet Volume 9.2, Neutrophils (%) (Auto) 81.0H, Lymphocytes ( %) (Auto) 7.9L, Monocytes (%) (Auto) 9.6, Eosinophils (%) (Auto) 0.9, Basophils (%) (Auto) 0.7, Erythrocyte Sedimentation Rate 115H, Activated Partial Thromboplast Time 55H, Sodium Level 136, Potassium Level 3.9, Chloride Level 100 , Carbon Dioxide Level 27, Anion Gap 9, Blood Urea Nitrogen 51H, Creatinine 2.6H , Estimat Glomerular Filtration Rate 21.8, Glucose Level 196H, Calcium Level 8.6 , Phosphorus Level 3.7, Magnesium Level 2.0, Total Bilirubin 0.5, Aspartate Amino Transf (AST/SGOT) 17, Alanine Aminotransferase (ALT/SGPT) 13, Alkaline Phosphatase 107, Troponin I 0.720H, C-Reactive Protein, Quantitative 15.4H, Pro- B-Type Natriuretic Peptide 25919L, Total Protein 6.9, Albumin 2.2L, Globulin 4.7 , Albumin/Globulin Ratio 0.5L 10/16/19 11:35: Activated Partial Thromboplast Time 61H Current Medications Medications (Trade) Dose Ordered Sig/Adria Route PRN Reason Start Time Stop Time Status Last Admin Dose Admin Acetaminophen (Tylenol) 650 mg Q4H PRN ORAL fever 10/11/19 08:30 11/09/19 08:29 10/13/19 20:22 Acetaminophen (Tylenol) 650 mg Q4H PRN RECTAL Temp >100.5 10/14/19 06:30 11/13/19 06:29 Aspirin (Ecotrin) 81 mg DAILY ORAL 10/11/19 09:00 11/25/19 08:59 10/16/19 09:36 Atorvastatin Calcium (Lipitor) 40 mg BEDTIME ORAL 10/12/19 21:00 01/10/20 20:59 10/15/19 21:01 Carvedilol (Coreg) 3.125 mg EVERY 12 HOURS ORAL 10/11/19 09:00 11/09/19 20:59 10/16/19 09:36 Clonidine HCl (Catapres Tab) 0.1 mg Q4H PRN ORAL Blood pressure over 160 systol 10/11/19 08:30 01/08/20 08:29 10/12/19 21:59 Dextrose (Dextrose 50%) 25 ml Q30M PRN IV Hypoglycemia 10/11/19 08:30 01/08/20 11:29 Dextrose (Dextrose 50%) 50 ml Q30M PRN IV Hypoglycemia 10/11/19 08:30 01/08/20 11:29 Docusate Sodium (Colace) 100 mg THREE TIMES A DAY ORAL 10/11/19 09:00 11/09/19 17:59 10/13/19 17:36 Gabapentin (Neurontin) 100 mg THREE TIMES A DAY ORAL 10/11/19 09:00 11/09/19 12:59 10/16/19 09:36 Heparin Sodium/ Dextrose 500 ml @ 46.88 mls/ hr ADJUST PER PROTOCOL IV 10/16/19 12:34 11/15/19 12:33 10/16/19 12:43 Insulin Aspart (NovoLOG) BEFORE MEALS AND HS SUBQ 10/11/19 11:30 01/08/20 11:29 10/16/19 05:39 Isosorbide Mononitrate (Imdur) 30 mg DAILY ORAL 10/13/19 09:00 11/12/19 08:59 10/16/19 09:36 Meropenem 500 mg/ Sodium Chloride 55 ml @ 110 mls/hr Q12HR@0500,1700 IVPB 10/11/19 17:00 10/16/19 16:59 10/16/19 05:26 Nitroglycerin (Ntg) 0.4 mg Q5M PRN SL Prn Chest Pain 10/11/19 08:30 11/09/19 11:29 Ondansetron HCl (Zofran) 4 mg Q6H PRN IVP Nausea & Vomiting 10/11/19 08:30 11/09/19 08:29 Pantoprazole (Protonix) 40 mg EVERY 12 HOURS ORAL 10/14/19 21:00 11/13/19 20:59 10/16/19 09:36 Polyethylene Glycol (Miralax) 17 gm DAILYPRN PRN ORAL Constipation 10/11/19 08:30 11/09/19 08:29 Temazepam (Restoril) 15 mg HSPRN PRN ORAL Insomnia 10/11/19 11:30 10/17/19 11:29 Assessment/Plan Problems: (1) Sepsis (2) NSTEMI (non-ST elevated myocardial infarction) (3) Renal failure (ARF), acute on chronic (4) Pyelonephritis (5) Atrial fibrillation with rapid ventricular response (6) Chronic atrial fibrillation (7) Limited mobility (8) Anemia (9) Diabetes mellitus (10) Morbid obesity Assessment/Plan second BC from 10/10 still positive WBC still high asymptomatic electrolytes supplement iv abx by ID, Meropenem creatinine is stable now asa, plavix and b idalia cardio suggest "Noninvasive w/u vs cardiac cath when stable from ID standpoint, to evaluate CAD," sliding scale diabetic diet renal studies dvt prophylaxis. Bandar Brownlee MD Oct 16, 2019 12:51
[2019-10-16 16:00] VITALS: BP 135/71
--- NOTE | 2019-10-16 19:40 | NUR ---
HAND-OFF: Report given to Aruna BEAVERS. Patient in stable condition. On room air. Not in distress. Bed in lowest position and locked. Call light within reach. Endorsed plan of care.
[2019-10-16] MEDS: Atorvastatin 20mg tab ORAL SCH (20:27)
--- NOTE | 2019-10-16 23:00 | Cardiology Progress Note ---
Assessment/Plan Assessment/Plan 1. Permanent atrial fibrillation, on anticoagulation. 2. Toxic-metabolic encephalopathy. 3. Urinary tract infection, question pyelonephritis. 4. Diabetes mellitus. 5. Hypertension history. 6. Morbid obesity. 7. Myocardial infarction. 8. Acute on chronic renal insufficiency. 9. Coagulopathy secondary to Coumadin. 10. Bacteremia gnr 11. Iron def 12 RV hypokinesis and enlargment covid neg still in isolation as remains pui for covid 19 trop tapering may be related to poulm embolism or cad some of the echo images the rv hypo and somewhat dilated venous duplex non diagnositc ctpa vs v/q if and renal fx allow for now remain on heparin for afib adn possible PE bp seems fine repeat trop tapering down wbcimproved afebrile tele reviewed afib bp see ok at the moment trop taper cr improved but still abnormal Subjective Subjective . Alert and oriented x4. Resting comfortably in bed. Not in distress Objective Last 24 Hour Vital Signs Date Time Temp Pulse Resp B/P (MAP) Pulse Ox O2 Delivery O2 Flow Rate FiO2 10/16/19 21:02 82 18 95 Room Air 21 10/16/19 20:26 67 135/71 10/16/19 16:00 67 10/16/19 16:00 98.6 89 20 135/71 (92) 97 10/16/19 12:00 74 10/16/19 12:00 97.5 81 20 116/72 (87) 98 10/16/19 09:36 124/65 10/16/19 09:36 88 124/65 10/16/19 09:00 Room Air 10/16/19 08:00 77 10/16/19 08:00 97.5 88 19 124/65 (84) 97 10/16/19 04:00 88 10/16/19 04:00 97.7 77 18 132/83 (99) 96 10/16/19 00:00 78 10/16/19 00:00 99.9 86 18 130/83 (99) 97 Intake and Output 10/15/19 10/16/19 19:00 07:00 Intake Total 240 ml Output Total 1500 ml 720 ml Balance -1260 ml -720 ml Intake Oral 240 ml Output Urine Total 1500 ml 720 ml # Bowel Movements 2 Laboratory Tests Test 10/16/19 04:10 10/16/19 11:35 10/16/19 18:53 White Blood Count 17.0 K/UL (4.8-10.8) H Red Blood Count 3.51 M/UL (4.20-5.40) L Hemoglobin 9.5 G/DL (12.0-16.0) L Hematocrit 27.7 % (37.0-47.0) L Mean Corpuscular Volume 79 FL (80-99) L Mean Corpuscular Hemoglobin 27.1 PG (27.0-31.0) Mean Corpuscular Hemoglobin Concent 34.4 G/DL (32.0-36.0) Red Cell Distribution Width 13.2 % (11.6-14.8) Platelet Count 246 K/UL (150-450) Mean Platelet Volume 9.2 FL (6.5-10.1) Neutrophils (%) (Auto) 81.0 % (45.0-75.0) H Lymphocytes (%) (Auto) 7.9 % (20.0-45.0) L Monocytes (%) (Auto) 9.6 % (1.0-10.0) Eosinophils (%) (Auto) 0.9 % (0.0-3.0) Basophils (%) (Auto) 0.7 % (0.0-2.0) Erythrocyte Sedimentation Rate 115 MM/HR (0-30) H Activated Partial Thromboplast Time 55 SEC (23-33) H 61 SEC (23-33) H 56 SEC (23-33) H Sodium Level 136 MMOL/L (136-145) Potassium Level 3.9 MMOL/L (3.5-5.1) Chloride Level 100 MMOL/L (98-107) Carbon Dioxide Level 27 MMOL/L (21-32) Anion Gap 9 mmol/L (5-15) Blood Urea Nitrogen 51 mg/dL (7-18) H Creatinine 2.6 MG/DL (0.55-1.30) H Estimat Glomerular Filtration Rate 21.8 mL/min (>60) Glucose Level 196 MG/DL (74-106) H Calcium Level 8.6 MG/DL (8.5-10.1) Phosphorus Level 3.7 MG/DL (2.5-4.9) Magnesium Level 2.0 MG/DL (1.8-2.4) Total Bilirubin 0.5 MG/DL (0.2-1.0) Aspartate Amino Transf (AST/SGOT) 17 U/L (15-37) Alanine Aminotransferase (ALT/SGPT) 13 U/L (12-78) Alkaline Phosphatase 107 U/L (46-116) Troponin I 0.720 ng/mL (0.000-0.056) C-Reactive Protein, Quantitative 15.4 mg/dL (0.00-0.90) H Pro-B-Type Natriuretic Peptide 95057 pg/mL (0-125) H Total Protein 6.9 G/DL (6.4-8.2) Albumin 2.2 G/DL (3.4-5.0) L Globulin 4.7 g/dL Albumin/Globulin Ratio 0.5 (1.0-2.7) L Microbiology Date/Time Source Procedure Growth Status 10/14/19 18:29 Blood Blood Culture - Preliminary NO GROWTH AFTER 24 HOURS Resulted 10/14/19 18:20 Blood Blood Culture - Preliminary NO GROWTH AFTER 24 HOURS Resulted Objective Neck: Supple, no significant jugular venous distention, Lungs: Fair inspiratory effort, decreased air at the bases no Wheeze or Rales. Heart: Regular rate and rhythm, normal S1/S2, no murmurs/gallops Abdomen: soft, lower quadrant tenderness, nondistended. Normoactive bowel sounds , morbid obesity. / Rectal: Refused and deferred. Extremities: No Cyanosis , clubbing, decreased edema Arun Barker MD Oct 16, 2019 23:00
[2019-10-17] VITALS: BP 148/82
[2019-10-17 02:27] LABS: BASOPHILS % (AUTO) 0.9 % (0.0-2.0); HEMATOCRIT 26.2 % (37.0-47.0); LYMPHOCYTES % (AUTO) 11.2 % (20.0-45.0); MEAN CORPUSCULAR VOLUME 80 FL (80-99); MONOCYTES % (AUTO) 8.6 % (1.0-10.0); NEUTROPHILS % (AUTO) 78.3 % (45.0-75.0); PLATELET COUNT 259 K/UL (150-450); RED BLOOD COUNT 3.25 M/UL (4.20-5.40); RED CELL DISTRIBUTION WIDTH 13.3 % (11.6-14.8); WHITE BLOOD COUNT 12.4 K/UL (4.8-10.8)
[2019-10-17 02:40] LABS: ALANINE AMINOTRANSFERASE 12 U/L (12-78); ALBUMIN 2.1 G/DL (3.4-5.0); ALBUMIN/GLOBULIN RATIO 0.5 (1.0-2.7); ALKALINE PHOSPHATASE 97 U/L (46-116); ANION GAP 6 mmol/L (5-15); ASPARTATE AMINO TRANSFERASE 18 U/L (15-37); BILIRUBIN,TOTAL 0.4 MG/DL (0.2-1.0); BLOOD UREA NITROGEN 49 mg/dL (7-18); CALCIUM 8.6 MG/DL (8.5-10.1); CARBON DIOXIDE 29 MMOL/L (21-32); CHLORIDE 102 MMOL/L (98-107); CREATININE 2.4 MG/DL (0.55-1.30); POTASSIUM 3.9 MMOL/L (3.5-5.1); SODIUM 137 MMOL/L (136-145)
[2019-10-17 04:00] VITALS: BP 134/77
[2019-10-17] MEDS ORDERED: Heparin 25,000u/D5W 500ml 500 ML IV SCH (04:00)
[2019-10-17] MEDS: NovoLOG Insulin Flexpen SUBQ SCH ×4 (06:30→20:58)
[2019-10-17] MEDS: Meropenem 500 MG in NS 55 ML IVPB SCH (06:55)
--- NOTE | 2019-10-17 07:29 | NUR ---
NURSE NOTES: Patient received from Aruna BEAVERS. Patient is in stable condition. Not in distress. On room air. Vital signs stable. Comfortable in bed. Bed is in lowest position and locked. IV site patent and intact on right forearm 22G. Anne catheter draining well to gravity. Will continue plan of care.
--- NOTE | 2019-10-17 07:35 | NUR ---
HAND-OFF: Report given to Shannon Thrasher RN. Pt in stable condition, denies pain. Will continue plan of care and monitoring.
[2019-10-17 08:00] VITALS: BP 148/70
[2019-10-17] MEDS: Aspirin EC 81mg tab ORAL SCH (08:49)
[2019-10-17] MEDS: Imdur 30mg tab ORAL SCH (08:50)
[2019-10-17] MEDS: Docusate 100mg cap ORAL SCH ×3 (08:50→17:49)
--- NOTE | 2019-10-17 11:54 | Pulmonology Progress Note ---
Subjective ROS Limited/Unobtainable: No Interval Events: c/o dry eyes Constitutional: Reports: no symptoms HEENT: Repors: no symptoms Respiratory: Reports: no symptoms Allergies: Coded Allergies: CODEINE (Verified Allergy, Unknown, 10/10/19) Objective Last 24 Hour Vital Signs Date Time Temp Pulse Resp B/P (MAP) Pulse Ox O2 Delivery O2 Flow Rate FiO2 10/17/19 09:00 Room Air 10/17/19 08:50 148/70 10/17/19 08:50 89 148/70 10/17/19 08:00 98.6 89 20 148/70 (96) 95 10/17/19 08:00 82 10/17/19 04:00 83 10/17/19 04:00 98.0 72 18 134/77 (96) 95 10/17/19 00:00 68 10/17/19 00:00 97.5 83 18 148/82 (104) 95 10/16/19 21:02 82 18 95 Room Air 21 10/16/19 21:00 Room Air 10/16/19 20:26 67 135/71 10/16/19 20:00 79 10/16/19 16:00 67 10/16/19 16:00 98.6 89 20 135/71 (92) 97 10/16/19 12:00 74 10/16/19 12:00 97.5 81 20 116/72 (87) 98 Intake and Output 10/16/19 10/17/19 19:00 07:00 Intake Total 1214.40 ml 600 ml Output Total 1200 ml 900 ml Balance 14.40 ml -300 ml Intake Oral 980 ml 600 ml IV Total 234.40 ml Output Urine Total 1200 ml 900 ml # Voids 2 General Appearance: WD/WN, no acute distress HEENT: normocephalic, atraumatic, anicteric, mucous membranes moist Respiratory: chest wall non-tender, normal breath sounds Cardiovascular: normal peripheral pulses, irregularly irregular - A fib with controlled HR Abdomen: normal bowel sounds, soft, non tender - obese Extremities: no clubbing, no edema Skin: no rash 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 normal, alert, responsive Musculoskeletal: normal muscle bulk Microbiology Date/Time Source Procedure Growth Status 10/15/19 13:40 Blood Blood Culture - Preliminary NO GROWTH AFTER 24 HOURS Resulted 10/15/19 13:15 Blood Blood Culture - Preliminary NO GROWTH AFTER 24 HOURS Resulted 10/14/19 18:29 Blood Blood Culture - Preliminary NO GROWTH AFTER 48 HOURS Resulted 10/14/19 18:20 Blood Blood Culture - Preliminary NO GROWTH AFTER 48 HOURS Resulted Laboratory Tests 10/16/19 18:53: Activated Partial Thromboplast Time 56H 10/17/19 02:17: Activated Partial Thromboplast Time 139H, White Blood Count 12.4H, Red Blood Count 3.25L, Hemoglobin 9.0L, Hematocrit 26.2L, Mean Corpuscular Volume 80, Mean Corpuscular Hemoglobin 27.6, Mean Corpuscular Hemoglobin Concent 34.3, Red Cell Distribution Width 13.3, Platelet Count 259, Mean Platelet Volume 9.0, Neutrophils (%) (Auto) 78.3H, Lymphocytes (%) (Auto) 11.2L, Monocytes (%) (Auto ) 8.6, Eosinophils (%) (Auto) 1.0, Basophils (%) (Auto) 0.9, Sodium Level 137, Potassium Level 3.9, Chloride Level 102, Carbon Dioxide Level 29, Anion Gap 6, Blood Urea Nitrogen 49H, Creatinine 2.4H, Estimat Glomerular Filtration Rate 23.9, Glucose Level 226H, Uric Acid 9.3H, Calcium Level 8.6, Phosphorus Level 4.0, Magnesium Level 2.0, Total Bilirubin 0.4, Aspartate Amino Transf (AST/SGOT ) 18, Alanine Aminotransferase (ALT/SGPT) 12, Alkaline Phosphatase 97, Total Protein 6.7, Albumin 2.1L, Globulin 4.6, Albumin/Globulin Ratio 0.5L 10/17/19 10:05: Activated Partial Thromboplast Time 55H Current Medications Medications (Trade) Dose Ordered Sig/Adria Route PRN Reason Start Time Stop Time Status Last Admin Dose Admin Acetaminophen (Tylenol) 650 mg Q4H PRN ORAL fever 10/11/19 08:30 11/09/19 08:29 10/13/19 20:22 Acetaminophen (Tylenol) 650 mg Q4H PRN RECTAL Temp >100.5 10/14/19 06:30 11/13/19 06:29 Aspirin (Ecotrin) 81 mg DAILY ORAL 10/11/19 09:00 11/25/19 08:59 10/17/19 08:49 Atorvastatin Calcium (Lipitor) 40 mg BEDTIME ORAL 10/12/19 21:00 01/10/20 20:59 10/16/19 20:27 Carvedilol (Coreg) 3.125 mg EVERY 12 HOURS ORAL 10/11/19 09:00 11/09/19 20:59 10/17/19 08:50 Clonidine HCl (Catapres Tab) 0.1 mg Q4H PRN ORAL Blood pressure over 160 systol 10/11/19 08:30 01/08/20 08:29 10/12/19 21:59 Dextrose (Dextrose 50%) 25 ml Q30M PRN IV Hypoglycemia 10/11/19 08:30 01/08/20 11:29 Dextrose (Dextrose 50%) 50 ml Q30M PRN IV Hypoglycemia 10/11/19 08:30 01/08/20 11:29 Docusate Sodium (Colace) 100 mg THREE TIMES A DAY ORAL 10/11/19 09:00 11/09/19 17:59 10/13/19 17:36 Gabapentin (Neurontin) 200 mg THREE TIMES A DAY ORAL 10/16/19 13:00 11/09/19 12:59 10/17/19 08:50 Heparin Sodium (Porcine) (Heparin 5000 units/ml) 6,000 units ONCE IV 10/17/19 12:00 10/17/19 13:00 Heparin Sodium/ Dextrose 500 ml @ 49.81 mls/ hr ADJUST PER PROTOCOL IV 10/17/19 12:00 11/16/19 03:59 Insulin Aspart (NovoLOG) BEFORE MEALS AND HS SUBQ 10/11/19 11:30 01/08/20 11:29 10/16/19 05:39 Isosorbide Mononitrate (Imdur) 30 mg DAILY ORAL 10/13/19 09:00 11/12/19 08:59 10/17/19 08:50 Meropenem 500 mg/ Sodium Chloride 55 ml @ 110 mls/hr Q12HR@0500,1700 IVPB 10/16/19 17:00 10/21/19 16:59 10/17/19 06:55 Nitroglycerin (Ntg) 0.4 mg Q5M PRN SL Prn Chest Pain 10/11/19 08:30 11/09/19 11:29 Ondansetron HCl (Zofran) 4 mg Q6H PRN IVP Nausea & Vomiting 10/11/19 08:30 11/09/19 08:29 Pantoprazole (Protonix) 40 mg EVERY 12 HOURS ORAL 10/14/19 21:00 11/13/19 20:59 10/17/19 08:49 Polyethylene Glycol (Miralax) 17 gm DAILYPRN PRN ORAL Constipation 10/11/19 08:30 11/09/19 08:29 Assessment/Plan Problems: (1) Sepsis (2) NSTEMI (non-ST elevated myocardial infarction) (3) Renal failure (ARF), acute on chronic (4) Pyelonephritis (5) Atrial fibrillation with rapid ventricular response (6) Chronic atrial fibrillation (7) Limited mobility (8) Anemia (9) Diabetes mellitus (10) Morbid obesity Assessment/Plan second BC from 10/10 still positive WBC still high, coming down asymptomatic electrolytes supplement iv abx by ID, Meropenem creatinine is stable now asa, plavix and b idalia cardio suggest "Noninvasive w/u vs cardiac cath when stable from ID standpoint, to evaluate CAD," sliding scale diabetic diet renal studies dvt prophylaxis. Bandar Brownlee MD Oct 17, 2019 11:53
[2019-10-17 12:00] VITALS: BP 144/79
[2019-10-17] MEDS ORDERED: Heparin 5000 units/ml inj IV SCH (12:00)
[2019-10-17] MEDS: Heparin 25,000u/D5W 500ml 500 ML IV SCH ×2 (12:01→22:34)
--- NOTE | 2019-10-17 12:17 | Nephrology Progress Note ---
Assessment/Plan Problem List: (1) Renal failure (ARF), acute on chronic (2) Diabetes mellitus (3) Morbid obesity (4) Chronic atrial fibrillation (5) History of DVT (deep vein thrombosis) (6) Anemia (7) NSTEMI (non-ST elevated myocardial infarction) (8) Sepsis (9) Pyelonephritis Assessment Renal failure, most likely acute on chronic. Sepsis, leukocytosis, fever, suspected 2019 novel coronavirus infection. Encephalopathy most likely toxic metabolic UTI/pyelonephritis Anemia Atrial fibrillation chronic, with fast ventricular rate. Diabetes mellitus Morbid obesity/limited mobility History of DVT Elevated troponin I Lactic acidosis Plan October 16: Serum creatinine lowering. White blood cell is lowering. Clinically improving. Continue per consultants. October 15: Serum creatinine lowered to 2.6. White blood cell count is also down to 17,000. Not much to add from renal standpoint of view. Continue per cardiology and per ID. October 14: Serum creatinine 2.8. No new changes. Continue per can line operator. Leukocytosis persists. Remains on meropenem. Continue per ID. October 13: Serum creatinine continues to lower. Troponin level also declining. Continue per cardiology management. Statins was restarted by cardiology. Continue to monitor renal parameters. October 12: Serum creatinine lowering. Troponin I is also declining. Continue per cardiology management. Will continue to follow-up renal parameters and CPK level. October 11: Statins stopped due to worsening LFTs. 1 dose of Plavix given. Imdur started. Serum creatinine stable. Continue per cardiology. Continue to monitor renal parameters and CPK. Monitor troponin I and CPK Aspirin, Coreg ,nitrate for elevated troponin Antibiotics Echocardiogram results noted Kidney ultrasound results pending Monitor urine output and renal parameters Keep the blood pressure and blood sugar in check Coumadin for DVT and atrial fibrillation IV Protonix Subjective ROS Limited/Unobtainable: No Constitutional: Reports: malaise, weakness Objective Objective Last 24 Hour Vital Signs Date Time Temp Pulse Resp B/P (MAP) Pulse Ox O2 Delivery O2 Flow Rate FiO2 10/17/19 09:00 Room Air 10/17/19 08:50 148/70 10/17/19 08:50 89 148/70 10/17/19 08:00 98.6 89 20 148/70 (96) 95 10/17/19 08:00 82 10/17/19 04:00 83 10/17/19 04:00 98.0 72 18 134/77 (96) 95 10/17/19 00:00 68 10/17/19 00:00 97.5 83 18 148/82 (104) 95 10/16/19 21:02 82 18 95 Room Air 21 10/16/19 21:00 Room Air 10/16/19 20:26 67 135/71 10/16/19 20:00 79 10/16/19 16:00 67 10/16/19 16:00 98.6 89 20 135/71 (92) 97 Intake and Output 10/16/19 10/17/19 19:00 07:00 Intake Total 1214.40 ml 600 ml Output Total 1200 ml 900 ml Balance 14.40 ml -300 ml Intake Oral 980 ml 600 ml IV Total 234.40 ml Output Urine Total 1200 ml 900 ml # Voids 2 Laboratory Tests 10/16/19 18:53: Activated Partial Thromboplast Time 56H 10/17/19 02:17: Activated Partial Thromboplast Time 139H, White Blood Count 12.4H, Red Blood Count 3.25L, Hemoglobin 9.0L, Hematocrit 26.2L, Mean Corpuscular Volume 80, Mean Corpuscular Hemoglobin 27.6, Mean Corpuscular Hemoglobin Concent 34.3, Red Cell Distribution Width 13.3, Platelet Count 259, Mean Platelet Volume 9.0, Neutrophils (%) (Auto) 78.3H, Lymphocytes (%) (Auto) 11.2L, Monocytes (%) (Auto ) 8.6, Eosinophils (%) (Auto) 1.0, Basophils (%) (Auto) 0.9, Sodium Level 137, Potassium Level 3.9, Chloride Level 102, Carbon Dioxide Level 29, Anion Gap 6, Blood Urea Nitrogen 49H, Creatinine 2.4H, Estimat Glomerular Filtration Rate 23.9, Glucose Level 226H, Uric Acid 9.3H, Calcium Level 8.6, Phosphorus Level 4.0, Magnesium Level 2.0, Total Bilirubin 0.4, Aspartate Amino Transf (AST/SGOT ) 18, Alanine Aminotransferase (ALT/SGPT) 12, Alkaline Phosphatase 97, Total Protein 6.7, Albumin 2.1L, Globulin 4.6, Albumin/Globulin Ratio 0.5L 10/17/19 10:05: Activated Partial Thromboplast Time 55H Height (Feet): 5 Height (Inches): 3.00 Weight (Pounds): 323 General Appearance: no apparent distress, lethargic Cardiovascular: tachycardia - Rate 80s Respiratory/Chest: decreased breath sounds Abdomen: distended, other - Obese Pantera Wallace MD Oct 17, 2019 12:17
--- NOTE | 2019-10-17 12:51 | Infectious Diseases Prog Note ---
Assessment/Plan Assessment/Plan Assessment: Severe Sepsis Probable PNA- COVID neg x2- sp VEnturi mask 8L- now at RA -10/13 CXR: Mild vascular congestion. Probable small left pleural effusion. -10/10 SARS-COV2 PCR neg -10/09 CXR: Mild interstitial congestion. Cannot rule out small left pleural effusion SARS-COV2 PCR neg E.coli UTI c/w high grade bacteremia- -u/a wbc tnct, nit neg, leuk +3; ucx >100k E.coli (R Levauin; otherwise S) -10/09 Bcx 08/09 E.coli (R levaquin; otherwise S); 10/10 Bcx 1/4 E.coli; 10/13, 9 BCx NTD x4 Fever; recurrent- up to 104 (10/13);SP- Leukocytosis; recurrent up to 30s 10/13, now improving Acute encephalopathy; improving LG, worsened, now improving -renal US: Negative for hydronephrosis. Possible nonobstructive left lower pole renal calculi. Incidental finding of bilateral renal parapelvic cysts. morbid obesity HTN Dm2 hx of UTI Afib on coumadin [place] resident ([facility]) Plan: Meropenem #7 (abx d #12/19) pending GNR ID bcx 10/10 -10/13 SP IV Vancomycin #5 -10/10 SP cefepime #2 -10/09 SP Meropenem x1 -f/u cx -monitor CBC/CMP, temperatures -COVID19 neg x2; dc isolation as afebrile >72hrs and alternative diagnosis (UTi and bacteremia) -f/u repeat Bcx x2 -May need CT abd/p (ideally w contrast if Cr normalizes) if recurrent fever/ worsenign WBC Thank you for consulting [facility]. Will continue to follow along with you. Discussed with RN. Subjective Allergies: Coded Allergies: CODEINE (Verified Allergy, Unknown, 10/10/19) Subjective afebrile >72hrs at RA wbc and cr improving latest BCx NTD Objective Vital Signs Last 24 Hour Vital Signs Date Time Temp Pulse Resp B/P (MAP) Pulse Ox O2 Delivery O2 Flow Rate FiO2 10/17/19 12:00 97.6 73 20 144/79 (100) 95 10/17/19 09:00 Room Air 10/17/19 08:50 148/70 10/17/19 08:50 89 148/70 10/17/19 08:00 98.6 89 20 148/70 (96) 95 10/17/19 08:00 82 10/17/19 04:00 83 10/17/19 04:00 98.0 72 18 134/77 (96) 95 10/17/19 00:00 68 10/17/19 00:00 97.5 83 18 148/82 (104) 95 10/16/19 21:02 82 18 95 Room Air 21 10/16/19 21:00 Room Air 10/16/19 20:26 67 135/71 10/16/19 20:00 79 10/16/19 16:00 67 10/16/19 16:00 98.6 89 20 135/71 (92) 97 Height (Feet): 5 Height (Inches): 3.00 Weight (Pounds): 323 Objective GENERAL: Patient is well-developed, well-nourished, slightly obese female, in no apparent distress. HEENT: Eyes, pupils are equal and responsive to light and accommodation. Extraocular movements are intact. NECK: Supple. No lymphadenopathy. CHEST: Lungs are clear to auscultation bilaterally without wheezes or rales. CARDIOVASCULAR: Regular rate. S1, S2 are normal without murmurs, rubs, or gallops. ABDOMEN: Soft, nontender, nondistended. Positive bowel sounds. No evidence of hepatosplenomegaly. Currently no rebound or guarding noted. EXTREMITIES: Negative for clubbing, cyanosis, or edema. Microbiology Date/Time Source Procedure Growth Status 10/15/19 13:40 Blood Blood Culture - Preliminary NO GROWTH AFTER 24 HOURS Resulted 10/15/19 13:15 Blood Blood Culture - Preliminary NO GROWTH AFTER 24 HOURS Resulted 10/14/19 18:29 Blood Blood Culture - Preliminary NO GROWTH AFTER 48 HOURS Resulted 10/14/19 18:20 Blood Blood Culture - Preliminary NO GROWTH AFTER 48 HOURS Resulted Laboratory Tests Test 10/16/19 18:53 10/17/19 02:17 10/17/19 10:05 Activated Partial Thromboplast Time 56 SEC (23-33) H 139 SEC (23-33) H 55 SEC (23-33) H White Blood Count 12.4 K/UL (4.8-10.8) H Red Blood Count 3.25 M/UL (4.20-5.40) L Hemoglobin 9.0 G/DL (12.0-16.0) L Hematocrit 26.2 % (37.0-47.0) L Mean Corpuscular Volume 80 FL (80-99) Mean Corpuscular Hemoglobin 27.6 PG (27.0-31.0) Mean Corpuscular Hemoglobin Concent 34.3 G/DL (32.0-36.0) Red Cell Distribution Width 13.3 % (11.6-14.8) Platelet Count 259 K/UL (150-450) Mean Platelet Volume 9.0 FL (6.5-10.1) Neutrophils (%) (Auto) 78.3 % (45.0-75.0) H Lymphocytes (%) (Auto) 11.2 % (20.0-45.0) L Monocytes (%) (Auto) 8.6 % (1.0-10.0) Eosinophils (%) (Auto) 1.0 % (0.0-3.0) Basophils (%) (Auto) 0.9 % (0.0-2.0) Sodium Level 137 MMOL/L (136-145) Potassium Level 3.9 MMOL/L (3.5-5.1) Chloride Level 102 MMOL/L (98-107) Carbon Dioxide Level 29 MMOL/L (21-32) Anion Gap 6 mmol/L (5-15) Blood Urea Nitrogen 49 mg/dL (7-18) H Creatinine 2.4 MG/DL (0.55-1.30) H Estimat Glomerular Filtration Rate 23.9 mL/min (>60) Glucose Level 226 MG/DL (74-106) H Uric Acid 9.3 MG/DL (2.6-7.2) H Calcium Level 8.6 MG/DL (8.5-10.1) Phosphorus Level 4.0 MG/DL (2.5-4.9) Magnesium Level 2.0 MG/DL (1.8-2.4) Total Bilirubin 0.4 MG/DL (0.2-1.0) Aspartate Amino Transf (AST/SGOT) 18 U/L (15-37) Alanine Aminotransferase (ALT/SGPT) 12 U/L (12-78) Alkaline Phosphatase 97 U/L (46-116) Total Protein 6.7 G/DL (6.4-8.2) Albumin 2.1 G/DL (3.4-5.0) L Globulin 4.6 g/dL Albumin/Globulin Ratio 0.5 (1.0-2.7) L Current Medications Medications (Trade) Dose Ordered Sig/Adria Route PRN Reason Start Time Stop Time Status Last Admin Dose Admin Acetaminophen (Tylenol) 650 mg Q4H PRN ORAL fever 10/11/19 08:30 11/09/19 08:29 10/13/19 20:22 Acetaminophen (Tylenol) 650 mg Q4H PRN RECTAL Temp >100.5 10/14/19 06:30 11/13/19 06:29 Aspirin (Ecotrin) 81 mg DAILY ORAL 10/11/19 09:00 11/25/19 08:59 10/17/19 08:49 Atorvastatin Calcium (Lipitor) 40 mg BEDTIME ORAL 10/12/19 21:00 01/10/20 20:59 10/16/19 20:27 Carvedilol (Coreg) 3.125 mg EVERY 12 HOURS ORAL 10/11/19 09:00 11/09/19 20:59 10/17/19 08:50 Clonidine HCl (Catapres Tab) 0.1 mg Q4H PRN ORAL Blood pressure over 160 systol 10/11/19 08:30 01/08/20 08:29 10/12/19 21:59 Dextrose (Dextrose 50%) 25 ml Q30M PRN IV Hypoglycemia 10/11/19 08:30 01/08/20 11:29 Dextrose (Dextrose 50%) 50 ml Q30M PRN IV Hypoglycemia 10/11/19 08:30 01/08/20 11:29 Docusate Sodium (Colace) 100 mg THREE TIMES A DAY ORAL 10/11/19 09:00 11/09/19 17:59 10/13/19 17:36 Gabapentin (Neurontin) 200 mg THREE TIMES A DAY ORAL 10/16/19 13:00 11/09/19 12:59 10/17/19 08:50 Heparin Sodium (Porcine) (Heparin 5000 units/ml) 6,000 units ONCE IV 10/17/19 12:00 10/17/19 13:00 10/17/19 12:02 Heparin Sodium/ Dextrose 500 ml @ 49.81 mls/ hr ADJUST PER PROTOCOL IV 10/17/19 12:00 11/16/19 03:59 10/17/19 12:01 Insulin Aspart (NovoLOG) BEFORE MEALS AND HS SUBQ 10/11/19 11:30 01/08/20 11:29 10/17/19 11:53 Isosorbide Mononitrate (Imdur) 30 mg DAILY ORAL 10/13/19 09:00 11/12/19 08:59 10/17/19 08:50 Latanoprost (Xalatan) 1 drop BEDTIME BOTH EYES 10/17/19 21:00 11/16/19 20:59 Meropenem 500 mg/ Sodium Chloride 55 ml @ 110 mls/hr Q12HR@0500,1700 IVPB 10/16/19 17:00 10/21/19 16:59 10/17/19 06:55 Nitroglycerin (Ntg) 0.4 mg Q5M PRN SL Prn Chest Pain 10/11/19 08:30 11/09/19 11:29 Ondansetron HCl (Zofran) 4 mg Q6H PRN IVP Nausea & Vomiting 10/11/19 08:30 11/09/19 08:29 Pantoprazole (Protonix) 40 mg EVERY 12 HOURS ORAL 10/14/19 21:00 11/13/19 20:59 10/17/19 08:49 Polyethylene Glycol (Miralax) 17 gm DAILYPRN PRN ORAL Constipation 10/11/19 08:30 11/09/19 08:29 Hannah Mays M.D. Oct 17, 2019 12:51
[2019-10-17 16:00] VITALS: BP 124/70
--- NOTE | 2019-10-17 16:46 | Internal Med Progress Note ---
Subjective Date of Service: Oct 16, 2019 Physician Name Johny Blankenship Attending Physician Aleksandr Vega MD Current Medications Medications (Trade) Dose Ordered Sig/Adria Route PRN Reason Start Time Stop Time Status Last Admin Dose Admin Acetaminophen (Tylenol) 650 mg Q4H PRN ORAL fever 10/11/19 08:30 11/09/19 08:29 10/13/19 20:22 Acetaminophen (Tylenol) 650 mg Q4H PRN RECTAL Temp >100.5 10/14/19 06:30 11/13/19 06:29 Aspirin (Ecotrin) 81 mg DAILY ORAL 10/11/19 09:00 11/25/19 08:59 10/17/19 08:49 Atorvastatin Calcium (Lipitor) 40 mg BEDTIME ORAL 10/12/19 21:00 01/10/20 20:59 10/16/19 20:27 Carvedilol (Coreg) 3.125 mg EVERY 12 HOURS ORAL 10/11/19 09:00 11/09/19 20:59 10/17/19 08:50 Ceftriaxone Sodium 1 gm/ Dextrose 55 ml @ 110 mls/hr Q24H IVPB 10/17/19 16:00 10/24/19 15:59 Clonidine HCl (Catapres Tab) 0.1 mg Q4H PRN ORAL Blood pressure over 160 systol 10/11/19 08:30 01/08/20 08:29 10/12/19 21:59 Dextrose (Dextrose 50%) 25 ml Q30M PRN IV Hypoglycemia 10/11/19 08:30 01/08/20 11:29 Dextrose (Dextrose 50%) 50 ml Q30M PRN IV Hypoglycemia 10/11/19 08:30 01/08/20 11:29 Docusate Sodium (Colace) 100 mg THREE TIMES A DAY ORAL 10/11/19 09:00 11/09/19 17:59 10/13/19 17:36 Gabapentin (Neurontin) 200 mg THREE TIMES A DAY ORAL 10/16/19 13:00 11/09/19 12:59 10/17/19 13:14 Heparin Sodium/ Dextrose 500 ml @ 49.81 mls/ hr ADJUST PER PROTOCOL IV 10/17/19 12:00 11/16/19 03:59 10/17/19 12:01 Insulin Aspart (NovoLOG) BEFORE MEALS AND HS SUBQ 10/11/19 11:30 9/2/20 11:29 10/17/19 11:53 Isosorbide Mononitrate (Imdur) 30 mg DAILY ORAL 10/13/19 09:00 11/12/19 08:59 10/17/19 08:50 Latanoprost (Xalatan) 1 drop BEDTIME BOTH EYES 10/17/19 21:00 11/16/19 20:59 Nitroglycerin (Ntg) 0.4 mg Q5M PRN SL Prn Chest Pain 10/11/19 08:30 11/09/19 11:29 Ondansetron HCl (Zofran) 4 mg Q6H PRN IVP Nausea & Vomiting 10/11/19 08:30 11/09/19 08:29 Pantoprazole (Protonix) 40 mg EVERY 12 HOURS ORAL 10/14/19 21:00 11/13/19 20:59 10/17/19 08:49 Polyethylene Glycol (Miralax) 17 gm DAILYPRN PRN ORAL Constipation 10/11/19 08:30 11/09/19 08:29 Allergies: Coded Allergies: CODEINE (Verified Allergy, Unknown, 10/10/19) ROS Limited/Unobtainable: Yes Subjective 74 YO F admitted with altered mental status and fever. Now UTI and sepsis. Cover for Int Med-Dr Vega. Late entry; computer down 10/16/19 Objective Last Vital Signs Date Time Temp Pulse Resp B/P (MAP) Pulse Ox O2 Delivery O2 Flow Rate FiO2 10/17/19 12:00 97.6 73 20 144/79 (100) 95 10/17/19 09:00 Room Air 10/17/19 08:40 21 10/14/19 21:00 8.0 Laboratory Tests Test 10/16/19 18:53 10/17/19 02:17 10/17/19 10:05 Activated Partial Thromboplast Time 56 SEC (23-33) H 139 SEC (23-33) H 55 SEC (23-33) H White Blood Count 12.4 K/UL (4.8-10.8) H Red Blood Count 3.25 M/UL (4.20-5.40) L Hemoglobin 9.0 G/DL (12.0-16.0) L Hematocrit 26.2 % (37.0-47.0) L Mean Corpuscular Volume 80 FL (80-99) Mean Corpuscular Hemoglobin 27.6 PG (27.0-31.0) Mean Corpuscular Hemoglobin Concent 34.3 G/DL (32.0-36.0) Red Cell Distribution Width 13.3 % (11.6-14.8) Platelet Count 259 K/UL (150-450) Mean Platelet Volume 9.0 FL (6.5-10.1) Neutrophils (%) (Auto) 78.3 % (45.0-75.0) H Lymphocytes (%) (Auto) 11.2 % (20.0-45.0) L Monocytes (%) (Auto) 8.6 % (1.0-10.0) Eosinophils (%) (Auto) 1.0 % (0.0-3.0) Basophils (%) (Auto) 0.9 % (0.0-2.0) Sodium Level 137 MMOL/L (136-145) Potassium Level 3.9 MMOL/L (3.5-5.1) Chloride Level 102 MMOL/L (98-107) Carbon Dioxide Level 29 MMOL/L (21-32) Anion Gap 6 mmol/L (5-15) Blood Urea Nitrogen 49 mg/dL (7-18) H Creatinine 2.4 MG/DL (0.55-1.30) H Estimat Glomerular Filtration Rate 23.9 mL/min (>60) Glucose Level 226 MG/DL (74-106) H Uric Acid 9.3 MG/DL (2.6-7.2) H Calcium Level 8.6 MG/DL (8.5-10.1) Phosphorus Level 4.0 MG/DL (2.5-4.9) Magnesium Level 2.0 MG/DL (1.8-2.4) Total Bilirubin 0.4 MG/DL (0.2-1.0) Aspartate Amino Transf (AST/SGOT) 18 U/L (15-37) Alanine Aminotransferase (ALT/SGPT) 12 U/L (12-78) Alkaline Phosphatase 97 U/L (46-116) Total Protein 6.7 G/DL (6.4-8.2) Albumin 2.1 G/DL (3.4-5.0) L Globulin 4.6 g/dL Albumin/Globulin Ratio 0.5 (1.0-2.7) L Microbiology Date/Time Source Procedure Growth Status 10/15/19 13:40 Blood Blood Culture - Preliminary NO GROWTH AFTER 24 HOURS Resulted 10/15/19 13:15 Blood Blood Culture - Preliminary NO GROWTH AFTER 24 HOURS Resulted 10/14/19 18:29 Blood Blood Culture - Preliminary NO GROWTH AFTER 48 HOURS Resulted 10/14/19 18:20 Blood Blood Culture - Preliminary NO GROWTH AFTER 48 HOURS Resulted Intake and Output 10/16/19 10/17/19 19:00 07:00 Intake Total 1214.40 ml 600 ml Output Total 1200 ml 900 ml Balance 14.40 ml -300 ml Intake Oral 980 ml 600 ml IV Total 234.40 ml Output Urine Total 1200 ml 900 ml # Voids 2 Objective PHYSICAL EXAMINATION: GENERAL: Patient is well-developed, well-nourished, slightly obese female, in no apparent distress. HEENT: Eyes, pupils are equal and responsive to light and accommodation. Extraocular movements are intact. NECK: Supple. No lymphadenopathy. CHEST: Lungs are clear to auscultation bilaterally without wheezes or rales. CARDIOVASCULAR: Regular rate. S1, S2 are normal without murmurs, rubs, or gallops. ABDOMEN: Soft, nontender, nondistended. Positive bowel sounds. No evidence of hepatosplenomegaly. Currently no rebound or guarding noted. EXTREMITIES: Negative for clubbing, cyanosis, or edema. RECTAL/GENITAL: Not performed. NEUROLOGIC: Cranial nerves II to XII grossly intact without focal deficits Assessment/Plan Assessment/Plan ASSESSMENT: This is a 74-year-old female. 1. Sepsis=E. Coli 2. UTI=E. Coli 3. Altered mental status. 4. Leukocytosis. 5. Elevated troponin. 6. Atrial fibrillation. 7. Diabetes type 2. 8. Hypertension. 9. Hyperthyroidism. 10. Coronary artery disease. 11. Renal failure. 12. Hypercholesterolemia. 13. Chronic lymphedema of the bilateral lower extremities. 14. fever TREATMENT: 1. Urinary Tract infection-E. Coli ABX=meropenem. Infectious Disease=Dr. Mays. We will follow recommendations of Infectious Disease. 2. Sepsis=E. Coli Await culture and sensitivity result. Continue meropenem per ID. 3. Altered mental status. Resolved 4. Leukocytosis. Resolved 5. Elevated troponin. A Cardiology consultation has been obtained with Dr. Arun Barker. 6. Atrial fibrillation. Continue Coumadin as above. A Cardiology consultation has been obtained with Dr. Arun Barker. 7. Diabetes type 2. NovoLog sliding scale has been instituted. 8. Hypertension. Patient is currently hypotensive. Hold amlodipine as above. 9. Hyperthyroidism. Continue methimazole as above. 10. Coronary artery disease. Patient has elevated troponin. A Cardiology consultation has been obtained with Dr. Arun Barker. 11. Renal failure. A Nephrology consultation has been obtained with Dr. Pantera Wallace. 12. Hypercholesterolemia. Continue simvastatin as above. 13. Chronic lymphedema of bilateral lower extremities. 14. Will need CT abdomen/pelvis to R/O abscess-see ID note. Johny Blankenship MD Oct 17, 2019 16:46
[2019-10-17] MEDS: cefTRIAXone 1 GM in D5W 55 ML IVPB SCH (17:48)
--- NOTE | 2019-10-17 19:32 | NUR ---
HAND-OFF: Report given to Ramila/RN, Patient is in stable condition. Endorsed plan of care.
[2019-10-17 20:00] VITALS: BP 145/92
--- NOTE | 2019-10-17 20:31 | NUR ---
NURSE NOTES: Received patient report from RUTHANN Ortega. Patient shows no signs of distress or pain at the time. AO x4. Patient on heparin drip running at 17 units/kg/hr. IV patent and flushed. IV site shows no signs of erythema, infiltration, or bleeding at the time. Bed in the lowest position, side rails up x 3, alexandra draining. Will continue plan of care.
[2019-10-17] MEDS: Atorvastatin 20mg tab ORAL SCH (20:47)
[2019-10-17] MEDS: Latanoprost 0.005% Opth 2.5ml Soln BOTH EYES SCH (21:16)
--- NOTE | 2019-10-17 23:43 | Cardiology Progress Note ---
Assessment/Plan Assessment/Plan 1. Permanent atrial fibrillation, on anticoagulation. 2. Toxic-metabolic encephalopathy. 3. Urinary tract infection, question pyelonephritis. 4. Diabetes mellitus. 5. Hypertension history. 6. Morbid obesity. 7. Myocardial infarction. 8. Acute on chronic renal insufficiency. 9. Coagulopathy secondary to Coumadin. 10. Bacteremia gnr 11. Iron def 12 RV hypokinesis and enlargment covid neg still in isolation as remains pui for covid 19 trop tapering may be related to poulm embolism or cad some of the echo images the rv hypo and somewhat dilated venous duplex non diagnositc ctpa vs v/q if and renal fx allow for now remain on heparin for afib adn possible PE bp seems high may need addition of ccb repeat trop tapering down wbcimproving still afebrile tele reviewed afib Subjective Subjective Patient shows no signs of distress or pain at the time. AO x4. Patient on heparin drip running at 17 units/kg/hr Objective Last 24 Hour Vital Signs Date Time Temp Pulse Resp B/P (MAP) Pulse Ox O2 Delivery O2 Flow Rate FiO2 10/17/19 21:00 Room Air 10/17/19 20:46 109 145/92 10/17/19 20:00 97.9 109 20 145/92 (109) 94 10/17/19 16:00 83 10/17/19 16:00 97.9 73 20 124/70 (88) 95 10/17/19 12:00 97.6 73 20 144/79 (100) 95 10/17/19 12:00 77 10/17/19 09:00 Room Air 10/17/19 08:50 148/70 10/17/19 08:50 89 148/70 10/17/19 08:40 77 18 95 Room Air 21 10/17/19 08:00 98.6 89 20 148/70 (96) 95 10/17/19 08:00 82 10/17/19 04:00 83 10/17/19 04:00 98.0 72 18 134/77 (96) 95 10/17/19 00:00 68 10/17/19 00:00 97.5 83 18 148/82 (104) 95 Intake and Output 10/16/19 10/17/19 19:00 07:00 Intake Total 1214.40 ml 600 ml Output Total 1200 ml 900 ml Balance 14.40 ml -300 ml Intake Oral 980 ml 600 ml IV Total 234.40 ml Output Urine Total 1200 ml 900 ml # Voids 2 Laboratory Tests Test 10/17/19 02:17 10/17/19 10:05 10/17/19 18:40 White Blood Count 12.4 K/UL (4.8-10.8) H Red Blood Count 3.25 M/UL (4.20-5.40) L Hemoglobin 9.0 G/DL (12.0-16.0) L Hematocrit 26.2 % (37.0-47.0) L Mean Corpuscular Volume 80 FL (80-99) Mean Corpuscular Hemoglobin 27.6 PG (27.0-31.0) Mean Corpuscular Hemoglobin Concent 34.3 G/DL (32.0-36.0) Red Cell Distribution Width 13.3 % (11.6-14.8) Platelet Count 259 K/UL (150-450) Mean Platelet Volume 9.0 FL (6.5-10.1) Neutrophils (%) (Auto) 78.3 % (45.0-75.0) H Lymphocytes (%) (Auto) 11.2 % (20.0-45.0) L Monocytes (%) (Auto) 8.6 % (1.0-10.0) Eosinophils (%) (Auto) 1.0 % (0.0-3.0) Basophils (%) (Auto) 0.9 % (0.0-2.0) Activated Partial Thromboplast Time 139 SEC (23-33) H 55 SEC (23-33) H 77 SEC (23-33) H Sodium Level 137 MMOL/L (136-145) Potassium Level 3.9 MMOL/L (3.5-5.1) Chloride Level 102 MMOL/L (98-107) Carbon Dioxide Level 29 MMOL/L (21-32) Anion Gap 6 mmol/L (5-15) Blood Urea Nitrogen 49 mg/dL (7-18) H Creatinine 2.4 MG/DL (0.55-1.30) H Estimat Glomerular Filtration Rate 23.9 mL/min (>60) Glucose Level 226 MG/DL (74-106) H Uric Acid 9.3 MG/DL (2.6-7.2) H Calcium Level 8.6 MG/DL (8.5-10.1) Phosphorus Level 4.0 MG/DL (2.5-4.9) Magnesium Level 2.0 MG/DL (1.8-2.4) Total Bilirubin 0.4 MG/DL (0.2-1.0) Aspartate Amino Transf (AST/SGOT) 18 U/L (15-37) Alanine Aminotransferase (ALT/SGPT) 12 U/L (12-78) Alkaline Phosphatase 97 U/L (46-116) Total Protein 6.7 G/DL (6.4-8.2) Albumin 2.1 G/DL (3.4-5.0) L Globulin 4.6 g/dL Albumin/Globulin Ratio 0.5 (1.0-2.7) L Microbiology Date/Time Source Procedure Growth Status 10/15/19 13:40 Blood Blood Culture - Preliminary NO GROWTH AFTER 24 HOURS Resulted 10/15/19 13:15 Blood Blood Culture - Preliminary NO GROWTH AFTER 24 HOURS Resulted Objective Neck: Supple, no significant jugular venous distention, Lungs: Fair inspiratory effort, decreased air at the bases no Wheeze or Rales. Heart: Regular rate and rhythm, normal S1/S2, no murmurs/gallops Abdomen: soft, lower quadrant tenderness, nondistended. Normoactive bowel sounds , morbid obesity. / Rectal: Refused and deferred. Extremities: No Cyanosis , clubbing, decreased edema Arun Barker MD Oct 17, 2019 23:43
[2019-10-18] VITALS: BP 131/83
[2019-10-18 03:02] LABS: BASOPHILS % (AUTO) 0.7 % (0.0-2.0); EOSINOPHILS % (AUTO) 1.6 % (0.0-3.0); HEMATOCRIT 31.3 % (37.0-47.0); HEMOGLOBIN 9.9 G/DL (12.0-16.0); LYMPHOCYTES % (AUTO) 13.9 % (20.0-45.0); MEAN CORPUSCULAR VOLUME 86 FL (80-99); MONOCYTES % (AUTO) 8.2 % (1.0-10.0); NEUTROPHILS % (AUTO) 75.7 % (45.0-75.0); PLATELET COUNT 276 K/UL (150-450); RED BLOOD COUNT 3.62 M/UL (4.20-5.40); RED CELL DISTRIBUTION WIDTH 13.7 % (11.6-14.8); WHITE BLOOD COUNT 11.6 K/UL (4.8-10.8)
[2019-10-18 03:20] LABS: ALANINE AMINOTRANSFERASE 14 U/L (12-78); ALBUMIN 2.3 G/DL (3.4-5.0); ALBUMIN/GLOBULIN RATIO 0.5 (1.0-2.7); ALKALINE PHOSPHATASE 104 U/L (46-116); ANION GAP 5 mmol/L (5-15); ASPARTATE AMINO TRANSFERASE 18 U/L (15-37); BILIRUBIN,TOTAL 0.5 MG/DL (0.2-1.0); BLOOD UREA NITROGEN 41 mg/dL (7-18); CALCIUM 9.2 MG/DL (8.5-10.1); CARBON DIOXIDE 31 MMOL/L (21-32); CHLORIDE 102 MMOL/L (98-107); CREATININE 2.3 MG/DL (0.55-1.30); PHOSPHORUS 4.1 MG/DL (2.5-4.9); SODIUM 138 MMOL/L (136-145)
[2019-10-18 04:00] VITALS: BP 174/89
[2019-10-18] MEDS: Heparin 25,000u/D5W 500ml 500 ML IV SCH ×2 (04:41→16:13)
[2019-10-18] MEDS: NovoLOG Insulin Flexpen SUBQ SCH ×4 (06:31→21:29)
--- NOTE | 2019-10-18 07:30 | NUR ---
NURSE NOTES: Received report from RUTHANN Mcgrath. Patient AAO x4 in bed watching TV. No signs of distress or pain. Breathing is unlabored, breath sounds clear to auscultate bilaterally. Radial pulses palpable. Heparin infusing via R forearm 22 g IV. No signs of bleeding or infiltration. Bed low and locked, side rails x3 raised, call light in reach, fall education provided. Patient refused repositioning, education provided.
--- NOTE | 2019-10-18 07:50 | NUR ---
HAND-OFF: Report given to RUTHANN Jo. Patient shows no signs of distress or pain at the time. Endorsed plan of care.
[2019-10-18 08:00] VITALS: BP 149/83
--- NOTE | 2019-10-18 08:38 | NUR ---
NURSE NOTES: Patient off the floor for CT. Addendum: 10/18/19 at 0936 by Ana Gamble RN wrong patient documentation
[2019-10-18] MEDS: Docusate 100mg cap ORAL SCH ×4 (08:56→17:58)
[2019-10-18] MEDS: Imdur 30mg tab ORAL SCH (08:59)
[2019-10-18] MEDS: Aspirin EC 81mg tab ORAL SCH (09:00)
--- NOTE | 2019-10-18 09:11 | NUR ---
NURSE NOTES: Patient refused colace and gabapentin despite med education. Meds returned to [facility].
--- NOTE | 2019-10-18 10:48 | NUR ---
Patient refused repositioning. PT at bedside now.
--- NOTE | 2019-10-18 11:01 | NUR ---
NURSE NOTES: PTT resulted at 94. Per protocol, will continue heparin infusion at current rate and PTT to be drawn 10/18 at 0400. Discussed aforementioned with Crystal in Pharmacy.
[2019-10-18 12:00] VITALS: BP 124/58
--- NOTE | 2019-10-18 12:38 | Pulmonology Progress Note ---
Subjective ROS Limited/Unobtainable: Yes Interval Events: c/o dry eyes Constitutional: Reports: no symptoms HEENT: Repors: no symptoms Respiratory: Reports: no symptoms Allergies: Coded Allergies: CODEINE (Verified Allergy, Unknown, 10/10/19) Objective Last 24 Hour Vital Signs Date Time Temp Pulse Resp B/P (MAP) Pulse Ox O2 Delivery O2 Flow Rate FiO2 10/18/19 12:00 67 10/18/19 09:00 Room Air 10/18/19 08:59 149/83 10/18/19 08:59 80 149/83 10/18/19 08:00 74 10/18/19 08:00 97.7 80 21 149/83 (105) 97 10/18/19 07:00 100 16 94 Room Air 21 10/18/19 06:26 174/89 10/18/19 04:00 97.9 103 19 174/89 (117) 94 10/18/19 04:00 62 10/18/19 00:00 97.4 99 20 131/83 (99) 96 10/18/19 00:00 47 10/17/19 21:13 89 16 94 Room Air 21 10/17/19 21:00 Room Air 10/17/19 20:46 109 145/92 10/17/19 20:00 74 10/17/19 20:00 97.9 109 20 145/92 (109) 94 10/17/19 16:00 83 10/17/19 16:00 97.9 73 20 124/70 (88) 95 Intake and Output 10/17/19 10/18/19 19:00 07:00 Intake Total 898.86 ml 101.82 ml Output Total 1300 ml 950 ml Balance -401.14 ml -848.18 ml Intake Oral 600 ml IV Total 298.86 ml 101.82 ml Output Urine Total 1300 ml 950 ml # Voids 2 1 General Appearance: WD/WN, no acute distress HEENT: normocephalic, atraumatic, anicteric, mucous membranes moist Respiratory: chest wall non-tender, normal breath sounds Cardiovascular: normal peripheral pulses, irregularly irregular - A fib with controlled HR Abdomen: normal bowel sounds, soft, non tender - obese Extremities: no clubbing, no edema Skin: no rash Neurologic: burr filer II-XII grossly normal, alert, responsive Musculoskeletal: normal muscle bulk Microbiology Date/Time Source Procedure Growth Status 10/15/19 13:40 Blood Blood Culture - Preliminary NO GROWTH AFTER 48 HOURS Resulted 10/15/19 13:15 Blood Blood Culture - Preliminary NO GROWTH AFTER 48 HOURS Resulted Laboratory Tests 10/17/19 18:40: Activated Partial Thromboplast Time 77H 10/18/19 02:50: Activated Partial Thromboplast Time 99H, White Blood Count 11.6H, Red Blood Count 3.62L, Hemoglobin 9.9L, Hematocrit 31.3L, Mean Corpuscular Volume 86, Mean Corpuscular Hemoglobin 27.3, Mean Corpuscular Hemoglobin Concent 31.6L, Red Cell Distribution Width 13.7, Platelet Count 276, Mean Platelet Volume 9.6, Neutrophils (%) (Auto) 75.7H, Lymphocytes (%) (Auto) 13.9L, Monocytes (%) (Auto ) 8.2, Eosinophils (%) (Auto) 1.6, Basophils (%) (Auto) 0.7, Sodium Level 138, Potassium Level 4.0, Chloride Level 102, Carbon Dioxide Level 31, Anion Gap 5, Blood Urea Nitrogen 41H, Creatinine 2.3H, Estimat Glomerular Filtration Rate 25.1, Glucose Level 164H, Calcium Level 9.2, Phosphorus Level 4.1, Magnesium Level 2.0, Total Bilirubin 0.5, Aspartate Amino Transf (AST/SGOT) 18, Alanine Aminotransferase (ALT/SGPT) 14, Alkaline Phosphatase 104, Total Protein 7.2, Albumin 2.3L, Globulin 4.9, Albumin/Globulin Ratio 0.5L 10/18/19 09:55: Activated Partial Thromboplast Time 94H Current Medications Medications (Trade) Dose Ordered Sig/Adria Route PRN Reason Start Time Stop Time Status Last Admin Dose Admin Acetaminophen (Tylenol) 650 mg Q4H PRN ORAL fever 10/11/19 08:30 11/09/19 08:29 10/13/19 20:22 Acetaminophen (Tylenol) 650 mg Q4H PRN RECTAL Temp >100.5 10/14/19 06:30 11/13/19 06:29 Aspirin (Ecotrin) 81 mg DAILY ORAL 10/11/19 09:00 11/25/19 08:59 10/18/19 09:00 Atorvastatin Calcium (Lipitor) 40 mg BEDTIME ORAL 10/12/19 21:00 01/10/20 20:59 10/17/19 20:47 Carvedilol (Coreg) 3.125 mg EVERY 12 HOURS ORAL 10/11/19 09:00 11/09/19 20:59 10/18/19 08:59 Ceftriaxone Sodium 1 gm/ Dextrose 55 ml @ 110 mls/hr Q24H IVPB 10/17/19 16:00 10/24/19 15:59 10/17/19 17:48 Clonidine HCl (Catapres Tab) 0.1 mg Q4H PRN ORAL Blood pressure over 160 systol 10/11/19 08:30 01/08/20 08:29 10/18/19 06:26 Dextrose (Dextrose 50%) 25 ml Q30M PRN IV Hypoglycemia 10/11/19 08:30 01/08/20 11:29 Dextrose (Dextrose 50%) 50 ml Q30M PRN IV Hypoglycemia 10/11/19 08:30 01/08/20 11:29 Docusate Sodium (Colace) 100 mg THREE TIMES A DAY ORAL 10/11/19 09:00 11/09/19 17:59 10/13/19 17:36 Gabapentin (Neurontin) 200 mg THREE TIMES A DAY ORAL 10/16/19 13:00 11/09/19 12:59 10/18/19 12:31 Heparin Sodium/ Dextrose 500 ml @ 43.95 mls/ hr ADJUST PER PROTOCOL IV 10/18/19 04:00 11/16/19 03:59 10/18/19 04:41 Insulin Aspart (NovoLOG) BEFORE MEALS AND HS SUBQ 10/11/19 11:30 01/08/20 11:29 10/18/19 12:22 Isosorbide Mononitrate (Imdur) 30 mg DAILY ORAL 10/13/19 09:00 11/12/19 08:59 10/18/19 08:59 Latanoprost (Xalatan) 1 drop BEDTIME BOTH EYES 10/17/19 21:00 11/16/19 20:59 10/17/19 21:16 Nitroglycerin (Ntg) 0.4 mg Q5M PRN SL Prn Chest Pain 10/11/19 08:30 11/09/19 11:29 Ondansetron HCl (Zofran) 4 mg Q6H PRN IVP Nausea & Vomiting 10/11/19 08:30 11/09/19 08:29 Pantoprazole (Protonix) 40 mg EVERY 12 HOURS ORAL 10/14/19 21:00 11/13/19 20:59 10/18/19 08:57 Polyethylene Glycol (Miralax) 17 gm DAILYPRN PRN ORAL Constipation 10/11/19 08:30 11/09/19 08:29 Assessment/Plan Problems: (1) Sepsis (2) NSTEMI (non-ST elevated myocardial infarction) (3) Renal failure (ARF), acute on chronic (4) Pyelonephritis (5) Atrial fibrillation with rapid ventricular response (6) Chronic atrial fibrillation (7) Limited mobility (8) Anemia (9) Diabetes mellitus (10) Morbid obesity Assessment/Plan second BC from 10/10 still positive WBC still high, coming down asymptomatic electrolytes supplement iv abx by ID, Meropenem creatinine is stable now, renal function improving asa, plavix and b idalia cardio suggest "Noninvasive w/u vs cardiac cath when stable from ID standpoint, to evaluate CAD," sliding scale diabetic diet renal studies dvt prophylaxis. Bandar Brownlee MD Oct 18, 2019 12:38
--- NOTE | 2019-10-18 12:41 | Infectious Diseases Prog Note ---
Assessment/Plan Assessment/Plan Assessment: Severe Sepsis Probable PNA- COVID neg x2- sp VEnturi mask 8L- now at RA -10/13 CXR: Mild vascular congestion. Probable small left pleural effusion. -10/10 SARS-COV2 PCR neg -10/09 CXR: Mild interstitial congestion. Cannot rule out small left pleural effusion SARS-COV2 PCR neg E.coli UTI c/w high grade bacteremia- -u/a wbc tnct, nit neg, leuk +3; ucx >100k E.coli (R Levauin; otherwise S) -10/09 Bcx 08/09 E.coli (R levaquin; otherwise S); 10/10 Bcx 1/4 E.coli; 10/13, 9 BCx NTD x4 Fever; recurrent- up to 104 (10/13);SP- Leukocytosis; recurrent up to 30s 10/13, now improving Acute encephalopathy; SP LG, worsened, now improving -renal US: Negative for hydronephrosis. Possible nonobstructive left lower pole renal calculi. Incidental finding of bilateral renal parapelvic cysts. morbid obesity HTN Dm2 hx of UTI Afib on coumadin [facility] resident ([facility]) Plan: Ceftriaxone #2 (abx d #01/19) for E.coli bacteremia -10/16 SP Meropenem #7 -10/13 SP IV Vancomycin #5 -10/10 SP cefepime #2 -10/09 SP Meropenem x1 -f/u cx -monitor CBC/CMP, temperatures -COVID19 neg x2; dc isolation as afebrile >72hrs and alternative diagnosis (UTi and bacteremia) -f/u repeat Bcx x2 -May need CT abd/p (ideally w contrast if Cr normalizes) if recurrent fever/ worsenign WBC Thank you for consulting [facility]. Will continue to follow along with you. Discussed with RN. Subjective Allergies: Coded Allergies: CODEINE (Verified Allergy, Unknown, 10/10/19) Subjective afebrile at RA wbc and cr improving latest BCx NTD Objective Vital Signs Last 24 Hour Vital Signs Date Time Temp Pulse Resp B/P (MAP) Pulse Ox O2 Delivery O2 Flow Rate FiO2 10/18/19 12:00 67 10/18/19 09:00 Room Air 10/18/19 08:59 149/83 10/18/19 08:59 80 149/83 10/18/19 08:00 74 10/18/19 08:00 97.7 80 21 149/83 (105) 97 10/18/19 07:00 100 16 94 Room Air 21 10/18/19 06:26 174/89 10/18/19 04:00 97.9 103 19 174/89 (117) 94 10/18/19 04:00 62 10/18/19 00:00 97.4 99 20 131/83 (99) 96 10/18/19 00:00 47 10/17/19 21:13 89 16 94 Room Air 21 10/17/19 21:00 Room Air 10/17/19 20:46 109 145/92 10/17/19 20:00 74 10/17/19 20:00 97.9 109 20 145/92 (109) 94 10/17/19 16:00 83 10/17/19 16:00 97.9 73 20 124/70 (88) 95 Height (Feet): 5 Height (Inches): 3.00 Weight (Pounds): 323 Objective GENERAL: Patient is well-developed, well-nourished, slightly obese female, in no apparent distress. HEENT: Eyes, pupils are equal and responsive to light and accommodation. Extraocular movements are intact. NECK: Supple. No lymphadenopathy. CHEST: Lungs are clear to auscultation bilaterally without wheezes or rales. CARDIOVASCULAR: Regular rate. S1, S2 are normal without murmurs, rubs, or gallops. ABDOMEN: Soft, nontender, nondistended. Positive bowel sounds. No evidence of hepatosplenomegaly. Currently no rebound or guarding noted. EXTREMITIES: Negative for clubbing, cyanosis, or edema. Microbiology Date/Time Source Procedure Growth Status 10/15/19 13:40 Blood Blood Culture - Preliminary NO GROWTH AFTER 48 HOURS Resulted 10/15/19 13:15 Blood Blood Culture - Preliminary NO GROWTH AFTER 48 HOURS Resulted Laboratory Tests Test 10/17/19 18:40 10/18/19 02:50 10/18/19 09:55 Activated Partial Thromboplast Time 77 SEC (23-33) H 99 SEC (23-33) H 94 SEC (23-33) H White Blood Count 11.6 K/UL (4.8-10.8) H Red Blood Count 3.62 M/UL (4.20-5.40) L Hemoglobin 9.9 G/DL (12.0-16.0) L Hematocrit 31.3 % (37.0-47.0) L Mean Corpuscular Volume 86 FL (80-99) Mean Corpuscular Hemoglobin 27.3 PG (27.0-31.0) Mean Corpuscular Hemoglobin Concent 31.6 G/DL (32.0-36.0) L Red Cell Distribution Width 13.7 % (11.6-14.8) Platelet Count 276 K/UL (150-450) Mean Platelet Volume 9.6 FL (6.5-10.1) Neutrophils (%) (Auto) 75.7 % (45.0-75.0) H Lymphocytes (%) (Auto) 13.9 % (20.0-45.0) L Monocytes (%) (Auto) 8.2 % (1.0-10.0) Eosinophils (%) (Auto) 1.6 % (0.0-3.0) Basophils (%) (Auto) 0.7 % (0.0-2.0) Sodium Level 138 MMOL/L (136-145) Potassium Level 4.0 MMOL/L (3.5-5.1) Chloride Level 102 MMOL/L (98-107) Carbon Dioxide Level 31 MMOL/L (21-32) Anion Gap 5 mmol/L (5-15) Blood Urea Nitrogen 41 mg/dL (7-18) H Creatinine 2.3 MG/DL (0.55-1.30) H Estimat Glomerular Filtration Rate 25.1 mL/min (>60) Glucose Level 164 MG/DL (74-106) H Calcium Level 9.2 MG/DL (8.5-10.1) Phosphorus Level 4.1 MG/DL (2.5-4.9) Magnesium Level 2.0 MG/DL (1.8-2.4) Total Bilirubin 0.5 MG/DL (0.2-1.0) Aspartate Amino Transf (AST/SGOT) 18 U/L (15-37) Alanine Aminotransferase (ALT/SGPT) 14 U/L (12-78) Alkaline Phosphatase 104 U/L (46-116) Total Protein 7.2 G/DL (6.4-8.2) Albumin 2.3 G/DL (3.4-5.0) L Globulin 4.9 g/dL Albumin/Globulin Ratio 0.5 (1.0-2.7) L Current Medications Medications (Trade) Dose Ordered Sig/Adria Route PRN Reason Start Time Stop Time Status Last Admin Dose Admin Acetaminophen (Tylenol) 650 mg Q4H PRN ORAL fever 10/11/19 08:30 11/09/19 08:29 10/13/19 20:22 Acetaminophen (Tylenol) 650 mg Q4H PRN RECTAL Temp >100.5 10/14/19 06:30 11/13/19 06:29 Aspirin (Ecotrin) 81 mg DAILY ORAL 10/11/19 09:00 11/25/19 08:59 10/18/19 09:00 Atorvastatin Calcium (Lipitor) 40 mg BEDTIME ORAL 10/12/19 21:00 01/10/20 20:59 10/17/19 20:47 Carvedilol (Coreg) 3.125 mg EVERY 12 HOURS ORAL 10/11/19 09:00 11/09/19 20:59 10/18/19 08:59 Ceftriaxone Sodium 1 gm/ Dextrose 55 ml @ 110 mls/hr Q24H IVPB 10/17/19 16:00 10/24/19 15:59 10/17/19 17:48 Clonidine HCl (Catapres Tab) 0.1 mg Q4H PRN ORAL Blood pressure over 160 systol 10/11/19 08:30 01/08/20 08:29 10/18/19 06:26 Dextrose (Dextrose 50%) 25 ml Q30M PRN IV Hypoglycemia 10/11/19 08:30 01/08/20 11:29 Dextrose (Dextrose 50%) 50 ml Q30M PRN IV Hypoglycemia 10/11/19 08:30 01/08/20 11:29 Docusate Sodium (Colace) 100 mg THREE TIMES A DAY ORAL 10/11/19 09:00 11/09/19 17:59 10/13/19 17:36 Gabapentin (Neurontin) 200 mg THREE TIMES A DAY ORAL 10/16/19 13:00 11/09/19 12:59 10/18/19 12:31 Heparin Sodium/ Dextrose 500 ml @ 43.95 mls/ hr ADJUST PER PROTOCOL IV 10/18/19 04:00 11/16/19 03:59 10/18/19 04:41 Insulin Aspart (NovoLOG) BEFORE MEALS AND HS SUBQ 10/11/19 11:30 01/08/20 11:29 10/18/19 12:22 Isosorbide Mononitrate (Imdur) 30 mg DAILY ORAL 10/13/19 09:00 11/12/19 08:59 10/18/19 08:59 Latanoprost (Xalatan) 1 drop BEDTIME BOTH EYES 10/17/19 21:00 11/16/19 20:59 10/17/19 21:16 Nitroglycerin (Ntg) 0.4 mg Q5M PRN SL Prn Chest Pain 10/11/19 08:30 11/09/19 11:29 Ondansetron HCl (Zofran) 4 mg Q6H PRN IVP Nausea & Vomiting 10/11/19 08:30 11/09/19 08:29 Pantoprazole (Protonix) 40 mg EVERY 12 HOURS ORAL 10/14/19 21:00 11/13/19 20:59 10/18/19 08:57 Polyethylene Glycol (Miralax) 17 gm DAILYPRN PRN ORAL Constipation 10/11/19 08:30 11/09/19 08:29 Hannah Mays M.D. Oct 18, 2019 12:41
--- NOTE | 2019-10-18 13:58 | NUR ---
NURSE NOTES: Sacral wound assessed by Philippe. Optifoam applied to sacrum and bilateral heels.
--- NOTE | 2019-10-18 14:09 | Nephrology Progress Note ---
Assessment/Plan Problem List: (1) Renal failure (ARF), acute on chronic (2) Diabetes mellitus (3) Morbid obesity (4) Chronic atrial fibrillation (5) History of DVT (deep vein thrombosis) (6) Anemia (7) NSTEMI (non-ST elevated myocardial infarction) (8) Sepsis (9) Pyelonephritis Assessment Renal failure, most likely acute on chronic. Sepsis, leukocytosis, fever, suspected 2019 novel coronavirus infection. Encephalopathy most likely toxic metabolic UTI/pyelonephritis Anemia Atrial fibrillation chronic, with fast ventricular rate. Diabetes mellitus Morbid obesity/limited mobility History of DVT Elevated troponin I Lactic acidosis Plan October 17: Serum creatinine stable lowering. Continues to improve. Full code. Continue per consultants. October 16: Serum creatinine lowering. White blood cell is lowering. Clinically improving. Continue per consultants. October 15: Serum creatinine lowered to 2.6. White blood cell count is also down to 17,000. Not much to add from renal standpoint of view. Continue per cardiology and per ID. October 14: Serum creatinine 2.8. No new changes. Continue per carriage setter. Leukocytosis persists. Remains on meropenem. Continue per ID. October 13: Serum creatinine continues to lower. Troponin level also declining. Continue per cardiology management. Statins was restarted by cardiology. Continue to monitor renal parameters. October 12: Serum creatinine lowering. Troponin I is also declining. Continue per cardiology management. Will continue to follow-up renal parameters and CPK level. October 11: Statins stopped due to worsening LFTs. 1 dose of Plavix given. Imdur started. Serum creatinine stable. Continue per cardiology. Continue to monitor renal parameters and CPK. Monitor troponin I and CPK Aspirin, Coreg ,nitrate for elevated troponin Antibiotics Echocardiogram results noted Kidney ultrasound results pending Monitor urine output and renal parameters Keep the blood pressure and blood sugar in check Coumadin for DVT and atrial fibrillation IV Protonix Subjective ROS Limited/Unobtainable: No Constitutional: Reports: malaise, weakness Objective Objective Last 24 Hour Vital Signs Date Time Temp Pulse Resp B/P (MAP) Pulse Ox O2 Delivery O2 Flow Rate FiO2 10/18/19 12:00 98.6 75 19 124/58 (80) 98 10/18/19 12:00 67 10/18/19 09:00 Room Air 10/18/19 08:59 149/83 10/18/19 08:59 80 149/83 6/12/20 08:00 74 10/18/19 08:00 97.7 80 21 149/83 (105) 97 10/18/19 07:00 100 16 94 Room Air 21 10/18/19 06:26 174/89 10/18/19 04:00 97.9 103 19 174/89 (117) 94 10/18/19 04:00 62 10/18/19 00:00 97.4 99 20 131/83 (99) 96 10/18/19 00:00 47 10/17/19 21:13 89 16 94 Room Air 21 10/17/19 21:00 Room Air 10/17/19 20:46 109 145/92 10/17/19 20:00 74 10/17/19 20:00 97.9 109 20 145/92 (109) 94 10/17/19 16:00 83 10/17/19 16:00 97.9 73 20 124/70 (88) 95 Intake and Output 10/17/19 10/18/19 19:00 07:00 Intake Total 898.86 ml 101.82 ml Output Total 1300 ml 950 ml Balance -401.14 ml -848.18 ml Intake Oral 600 ml IV Total 298.86 ml 101.82 ml Output Urine Total 1300 ml 950 ml # Voids 2 1 Laboratory Tests 10/17/19 18:40: Activated Partial Thromboplast Time 77H 10/18/19 02:50: Activated Partial Thromboplast Time 99H, White Blood Count 11.6H, Red Blood Count 3.62L, Hemoglobin 9.9L, Hematocrit 31.3L, Mean Corpuscular Volume 86, Mean Corpuscular Hemoglobin 27.3, Mean Corpuscular Hemoglobin Concent 31.6L, Red Cell Distribution Width 13.7, Platelet Count 276, Mean Platelet Volume 9.6, Neutrophils (%) (Auto) 75.7H, Lymphocytes (%) (Auto) 13.9L, Monocytes (%) (Auto ) 8.2, Eosinophils (%) (Auto) 1.6, Basophils (%) (Auto) 0.7, Sodium Level 138, Potassium Level 4.0, Chloride Level 102, Carbon Dioxide Level 31, Anion Gap 5, Blood Urea Nitrogen 41H, Creatinine 2.3H, Estimat Glomerular Filtration Rate 25.1, Glucose Level 164H, Calcium Level 9.2, Phosphorus Level 4.1, Magnesium Level 2.0, Total Bilirubin 0.5, Aspartate Amino Transf (AST/SGOT) 18, Alanine Aminotransferase (ALT/SGPT) 14, Alkaline Phosphatase 104, Total Protein 7.2, Albumin 2.3L, Globulin 4.9, Albumin/Globulin Ratio 0.5L 10/18/19 09:55: Activated Partial Thromboplast Time 94H Height (Feet): 5 Height (Inches): 3.00 Weight (Pounds): 323 General Appearance: no apparent distress Cardiovascular: normal rate Respiratory/Chest: decreased breath sounds Abdomen: distended Pantera Wallace MD Oct 18, 2019 14:09
--- NOTE | 2019-10-18 14:42 | NUR ---
CASE MANAGEMENT:REVIEW 10/18/19 SI: PNA. UTI. AMI. AFIB COVID NEGATIVE X2. AC/CHR RENAL INSUFF 98.6 67 19 124/58 98% ON RA WBC+11.6 H/H-9.9/31.3 BUN+41 CR+2.3 IS: HEPARIN GTT IV ROCEPHIN Q24 IMDUR PO QD ASA PO QD COREG PO Q12 PROTONIX Q12 NEURONTIN PO TID : TELEMETRY STATUS DCP: FROM [facility]: VQ SCAN VENOUS DUPLEX CARDIAC CATH ONCE CLEARED BY ID
--- NOTE | 2019-10-18 14:49 | NUR ---
DISCHARGE PLANNING PATIENT IS FROM [facility] NOT READY FOR DISCHARGE TODAY: HEPARIN GTT CARDIAC CATH PENDING ID CLEARANCE FOR TRANSFER
--- NOTE | 2019-10-18 15:35 | NUR ---
Attempted to transport patient to Nuclear Medicine department for V/Q scan. The scan was explained in full to the patient as well as the reason for having the scan. The patient verbalized her understanding and refused the V/Q scan. RUTHANN Nielsen was then called to the room and again the reasoning for the V/Q scan was explained to the patient. The patient still refuses.
[2019-10-18 16:00] VITALS: BP 138/79
--- NOTE | 2019-10-18 16:05 | NUR ---
NURSE NOTES: Clarified with [facility] Pharmacist regarding the compatibility of Heparin drip and Ceftriaxone IV; pharmacist confirmed they are compatible and can be Y-sited.
--- NOTE | 2019-10-18 16:10 | Internal Med Progress Note ---
Subjective Physician Name Aleksandr Vega Attending Physician Aleksandr Vega MD Current Medications Medications (Trade) Dose Ordered Sig/Adria Route PRN Reason Start Time Stop Time Status Last Admin Dose Admin Acetaminophen (Tylenol) 650 mg Q4H PRN ORAL fever 10/11/19 08:30 11/09/19 08:29 10/13/19 20:22 Acetaminophen (Tylenol) 650 mg Q4H PRN RECTAL Temp >100.5 10/14/19 06:30 11/13/19 06:29 Aspirin (Ecotrin) 81 mg DAILY ORAL 10/11/19 09:00 11/25/19 08:59 10/18/19 09:00 Atorvastatin Calcium (Lipitor) 40 mg BEDTIME ORAL 10/12/19 21:00 01/10/20 20:59 10/17/19 20:47 Carvedilol (Coreg) 3.125 mg EVERY 12 HOURS ORAL 10/11/19 09:00 11/09/19 20:59 10/18/19 08:59 Ceftriaxone Sodium 1 gm/ Dextrose 55 ml @ 110 mls/hr Q24H IVPB 10/17/19 16:00 10/24/19 15:59 10/17/19 17:48 Clonidine HCl (Catapres Tab) 0.1 mg Q4H PRN ORAL Blood pressure over 160 systol 10/11/19 08:30 01/08/20 08:29 10/18/19 06:26 Dextrose (Dextrose 50%) 25 ml Q30M PRN IV Hypoglycemia 10/11/19 08:30 01/08/20 11:29 Dextrose (Dextrose 50%) 50 ml Q30M PRN IV Hypoglycemia 10/11/19 08:30 01/08/20 11:29 Docusate Sodium (Colace) 100 mg THREE TIMES A DAY ORAL 10/11/19 09:00 11/09/19 17:59 10/13/19 17:36 Gabapentin (Neurontin) 200 mg THREE TIMES A DAY ORAL 10/16/19 13:00 11/09/19 12:59 10/18/19 12:31 Heparin Sodium/ Dextrose 500 ml @ 43.95 mls/ hr ADJUST PER PROTOCOL IV 10/18/19 04:00 11/16/19 03:59 10/18/19 04:41 Insulin Aspart (NovoLOG) BEFORE MEALS AND HS SUBQ 10/11/19 11:30 01/08/20 11:29 10/18/19 12:22 Isosorbide Mononitrate (Imdur) 30 mg DAILY ORAL 10/13/19 09:00 11/12/19 08:59 10/18/19 08:59 Latanoprost (Xalatan) 1 drop BEDTIME BOTH EYES 10/17/19 21:00 11/16/19 20:59 10/17/19 21:16 Nitroglycerin (Ntg) 0.4 mg Q5M PRN SL Prn Chest Pain 10/11/19 08:30 11/09/19 11:29 Ondansetron HCl (Zofran) 4 mg Q6H PRN IVP Nausea & Vomiting 10/11/19 08:30 11/09/19 08:29 Pantoprazole (Protonix) 40 mg EVERY 12 HOURS ORAL 10/14/19 21:00 11/13/19 20:59 10/18/19 08:57 Polyethylene Glycol (Miralax) 17 gm DAILYPRN PRN ORAL Constipation 10/11/19 08:30 11/09/19 08:29 Allergies: Coded Allergies: CODEINE (Verified Allergy, Unknown, 10/10/19) Subjective awake, alert, responsive, denies any chest pain or shortness of breath, denies any fever or chills, complained about lower abdominal pain. Objective Last Vital Signs Date Time Temp Pulse Resp B/P (MAP) Pulse Ox O2 Delivery O2 Flow Rate FiO2 10/18/19 12:00 98.6 75 19 124/58 (80) 98 10/18/19 09:00 Room Air 10/18/19 07:00 21 10/14/19 21:00 8.0 Laboratory Tests Test 10/17/19 18:40 10/18/19 02:50 10/18/19 09:55 Activated Partial Thromboplast Time 77 SEC (23-33) H 99 SEC (23-33) H 94 SEC (23-33) H White Blood Count 11.6 K/UL (4.8-10.8) H Red Blood Count 3.62 M/UL (4.20-5.40) L Hemoglobin 9.9 G/DL (12.0-16.0) L Hematocrit 31.3 % (37.0-47.0) L Mean Corpuscular Volume 86 FL (80-99) Mean Corpuscular Hemoglobin 27.3 PG (27.0-31.0) Mean Corpuscular Hemoglobin Concent 31.6 G/DL (32.0-36.0) L Red Cell Distribution Width 13.7 % (11.6-14.8) Platelet Count 276 K/UL (150-450) Mean Platelet Volume 9.6 FL (6.5-10.1) Neutrophils (%) (Auto) 75.7 % (45.0-75.0) H Lymphocytes (%) (Auto) 13.9 % (20.0-45.0) L Monocytes (%) (Auto) 8.2 % (1.0-10.0) Eosinophils (%) (Auto) 1.6 % (0.0-3.0) Basophils (%) (Auto) 0.7 % (0.0-2.0) Sodium Level 138 MMOL/L (136-145) Potassium Level 4.0 MMOL/L (3.5-5.1) Chloride Level 102 MMOL/L (98-107) Carbon Dioxide Level 31 MMOL/L (21-32) Anion Gap 5 mmol/L (5-15) Blood Urea Nitrogen 41 mg/dL (7-18) H Creatinine 2.3 MG/DL (0.55-1.30) H Estimat Glomerular Filtration Rate 25.1 mL/min (>60) Glucose Level 164 MG/DL (74-106) H Calcium Level 9.2 MG/DL (8.5-10.1) Phosphorus Level 4.1 MG/DL (2.5-4.9) Magnesium Level 2.0 MG/DL (1.8-2.4) Total Bilirubin 0.5 MG/DL (0.2-1.0) Aspartate Amino Transf (AST/SGOT) 18 U/L (15-37) Alanine Aminotransferase (ALT/SGPT) 14 U/L (12-78) Alkaline Phosphatase 104 U/L (46-116) Total Protein 7.2 G/DL (6.4-8.2) Albumin 2.3 G/DL (3.4-5.0) L Globulin 4.9 g/dL Albumin/Globulin Ratio 0.5 (1.0-2.7) L Intake and Output 10/17/19 10/18/19 19:00 07:00 Intake Total 898.86 ml 101.82 ml Output Total 1300 ml 950 ml Balance -401.14 ml -848.18 ml Intake Oral 600 ml IV Total 298.86 ml 101.82 ml Output Urine Total 1300 ml 950 ml # Voids 2 1 Objective General: No acute distress, awake and alert HEENT: NCAT, sclera anicteric, PERRL, EOMI. Neck: Supple, no significant jugular venous distention, Lungs: Fair inspiratory effort, decreased air at the bases no Wheeze or Rales. Heart: Regular rate and rhythm, normal S1/S2, no murmurs/gallops Abdomen: soft, not tende, nondistended. Normoactive bowel sounds, morbid obesity. / Rectal: Refused and deferred. Extremities: No Cyanosis , clubbing, +1 LE's edema. Neuro: A&O x 3, Able to move all extremities Skin: warm, no rash, Psych: Normal mood and affect Assessment/Plan Assessment/Plan ASSESSMENT: This is a 74-year-old female. 1. Sepsis / E. coli Bacteremia most likely due to UTI. 2. Probable pyelonephritis. 3. Altered mental status most likely due to toxic Metabolic Encephalopathy. 4. Leukocytosis. 5. Elevated troponin. 6. Atrial fibrillation. 7. Diabetes type 2. 8. Hypertension. 9. Hyperthyroidism. 10. Coronary artery disease. 11. Renal failure. 12. Hypercholesterolemia. 13. Chronic lymphedema of the bilateral lower extremities. TREATMENT: 1. Fever/pyelonephritis. Abx: Rocephin IV, Infectious Disease consultation has been obtained with Dr. Mays. We will follow recommendations of Infectious Disease. 2. Altered mental status / Toxic metabolic encephalopathy secondary to pyelonephritis/sepsis as above. 3. Leukocytosis. 4. Elevated troponin. A Cardiology consultation has been obtained with Dr. Arun Barker. 5. Atrial fibrillation. Continue Coumadin as above. A Cardiology consultation has been obtained with Dr. Arun Barker. 6. Diabetes type 2. NovoLog sliding scale has been instituted. 7. Hypertension. Patient is currently hypotensive. Hold amlodipine as above. 8. Hyperthyroidism. Continue methimazole as above. 9. Coronary artery disease. Patient has elevated troponin. A Cardiology consultation has been obtained with Dr. Arun Barker. 10. Renal failure. A Nephrology consultation has been obtained with Dr. Pantera Wallace. 11. Hypercholesterolemia. Continue simvastatin as above. 12. Chronic lymphedema of bilateral lower extremities. Aleksandr Vega MD Oct 18, 2019 16:09
[2019-10-18] MEDS: cefTRIAXone 1 GM in D5W 55 ML IVPB SCH (16:24)
--- NOTE | 2019-10-18 16:45 | NUR ---
NURSE NOTES: Offered patient with another peripheral IV so we can run Ceftriaxone IV separately but patient refused.
--- NOTE | 2019-10-18 18:15 | NUR ---
NURSE NOTES: Bernard at bedside for transport to Nuclear Medicine for Lung Perfusion Scan. Patient refused despite education. Dr. Brownlee notified.
--- NOTE | 2019-10-18 19:04 | NUR ---
NURSE NOTES: Informed Dr. Barker in person that patient refused N/M Lung Perfusion Scan. MD aware. No new order at this time.
--- NOTE | 2019-10-18 19:09 | NUR ---
HAND-OFF: Report given to RUTHANN Mcgrath. Patient's stable, plan of care endorsed.
--- NOTE | 2019-10-18 19:13 | Cardiology Progress Note ---
Assessment/Plan Assessment/Plan 1. Permanent atrial fibrillation, on anticoagulation. 2. Toxic-metabolic encephalopathy. 3. Urinary tract infection, question pyelonephritis. 4. Diabetes mellitus. 5. Hypertension history. 6. Morbid obesity. 7. Myocardial infarction. 8. Acute on chronic renal insufficiency. 9. Coagulopathy secondary to Coumadin. 10. Bacteremia gnr 11. Iron def 12 RV hypokinesis and enlargment covid neg still in isolation as remains pui for covid 19 trop tapering may be related to poulm embolism or cad some of the echo images the rv hypo and somewhat dilated venous duplex non diagnositc for now remain on heparin for afib adn possible PE bp seems high will add low dose norvasc repeat trop tapering down wbc improving still afebrile tele reviewed afib d/w dr cano v/q orderd but pt refused to have done due to fear of contrast eventhough the tech described the lack of contrast my plan was to discuss possibility of cath if v/q neg but will not likey accept Subjective Subjective awake, alert, responsive, denies any chest pain or shortness of breath, denies any fever or chills, complained about lower abdominal pain. Objective Last 24 Hour Vital Signs Date Time Temp Pulse Resp B/P (MAP) Pulse Ox O2 Delivery O2 Flow Rate FiO2 10/18/19 16:00 98.1 62 20 138/79 (98) 98 10/18/19 16:00 75 10/18/19 12:00 98.6 75 19 124/58 (80) 98 10/18/19 12:00 67 10/18/19 09:00 Room Air 10/18/19 08:59 149/83 10/18/19 08:59 80 149/83 10/18/19 08:00 74 10/18/19 08:00 97.7 80 21 149/83 (105) 97 10/18/19 07:00 100 16 94 Room Air 21 10/18/19 06:26 174/89 10/18/19 04:00 97.9 103 19 174/89 (117) 94 10/18/19 04:00 62 10/18/19 00:00 97.4 99 20 131/83 (99) 96 10/18/19 00:00 47 10/17/19 21:13 89 16 94 Room Air 21 6/11/20 21:00 Room Air 10/17/19 20:46 109 145/92 10/17/19 20:00 74 10/17/19 20:00 97.9 109 20 145/92 (109) 94 General Appearance: no apparent distress Neck: supple Cardiovascular: normal rate, irregularly irregular Respiratory/Chest: lungs clear Abdomen: normal bowel sounds, non tender, soft Extremities: no swelling Intake and Output 10/17/19 10/18/19 19:00 07:00 Intake Total 898.86 ml 101.82 ml Output Total 1300 ml 950 ml Balance -401.14 ml -848.18 ml Intake Oral 600 ml IV Total 298.86 ml 101.82 ml Output Urine Total 1300 ml 950 ml # Voids 2 1 Laboratory Tests Test 10/18/19 02:50 10/18/19 09:55 White Blood Count 11.6 K/UL (4.8-10.8) H Red Blood Count 3.62 M/UL (4.20-5.40) L Hemoglobin 9.9 G/DL (12.0-16.0) L Hematocrit 31.3 % (37.0-47.0) L Mean Corpuscular Volume 86 FL (80-99) Mean Corpuscular Hemoglobin 27.3 PG (27.0-31.0) Mean Corpuscular Hemoglobin Concent 31.6 G/DL (32.0-36.0) L Red Cell Distribution Width 13.7 % (11.6-14.8) Platelet Count 276 K/UL (150-450) Mean Platelet Volume 9.6 FL (6.5-10.1) Neutrophils (%) (Auto) 75.7 % (45.0-75.0) H Lymphocytes (%) (Auto) 13.9 % (20.0-45.0) L Monocytes (%) (Auto) 8.2 % (1.0-10.0) Eosinophils (%) (Auto) 1.6 % (0.0-3.0) Basophils (%) (Auto) 0.7 % (0.0-2.0) Activated Partial Thromboplast Time 99 SEC (23-33) H 94 SEC (23-33) H Sodium Level 138 MMOL/L (136-145) Potassium Level 4.0 MMOL/L (3.5-5.1) Chloride Level 102 MMOL/L (98-107) Carbon Dioxide Level 31 MMOL/L (21-32) Anion Gap 5 mmol/L (5-15) Blood Urea Nitrogen 41 mg/dL (7-18) H Creatinine 2.3 MG/DL (0.55-1.30) H Estimat Glomerular Filtration Rate 25.1 mL/min (>60) Glucose Level 164 MG/DL (74-106) H Calcium Level 9.2 MG/DL (8.5-10.1) Phosphorus Level 4.1 MG/DL (2.5-4.9) Magnesium Level 2.0 MG/DL (1.8-2.4) Total Bilirubin 0.5 MG/DL (0.2-1.0) Aspartate Amino Transf (AST/SGOT) 18 U/L (15-37) Alanine Aminotransferase (ALT/SGPT) 14 U/L (12-78) Alkaline Phosphatase 104 U/L (46-116) Total Protein 7.2 G/DL (6.4-8.2) Albumin 2.3 G/DL (3.4-5.0) L Globulin 4.9 g/dL Albumin/Globulin Ratio 0.5 (1.0-2.7) L Objective Neck: Supple, no significant jugular venous distention, Lungs: Fair inspiratory effort, decreased air at the bases no Wheeze or Rales. Heart: Regular rate and rhythm, normal S1/S2, no murmurs/gallops Abdomen: soft, lower quadrant tenderness, nondistended. Normoactive bowel sounds , morbid obesity. / Rectal: Refused and deferred. Extremities: No Cyanosis , clubbing, decreased edema Arun Barker MD Oct 18, 2019 19:13
--- NOTE | 2019-10-18 19:41 | NUR ---
NURSE NOTES: Received patient report from RUTHANN Jo and RUTHANN Nielsen. Patient is AO x 4. She shows no signs of distress or pain at the time. Patient's IV is running Heparin drip at 15 ml/kg/hr. IV patent and flushed, shows no signs of erythema, infiltration, or bleeding. Anne catheter patent and draining. Bed is in the lowest position, call light within reach, side rails up x 3. Will continue plan of care.
--- NOTE | 2019-10-18 19:51 | Diagnostic Imaging Report ---
EXAM: US Duplex Bilateral Lower Extremities Veins CLINICAL HISTORY: DVT TECHNIQUE: Real-time duplex ultrasound scan of the bilateral lower extremity veins integrating B-mode two-dimensional vascular structure, Doppler spectral analysis, color flow Doppler imaging and compression. COMPARISON: No relevant prior studies available. FINDINGS: Right deep veins: Limited visualization of the mid and distal superficial femoral vein and popliteal vein. No DVT within the common femoral vein, proximal superficial femoral vein, or veins of the calf. Right superficial veins: Unremarkable. Left deep veins: Limited visualization of the mid and distal superficial femoral vein and popliteal vein. No DVT within the common femoral vein, proximal superficial femoral vein, or veins of the calf. Left superficial veins: Unremarkable. Soft tissues: No acute findings. IMPRESSION: Limited study. No visualized DVT.
[2019-10-18 20:00] VITALS: BP 145/79
[2019-10-18] MEDS: Atorvastatin 20mg tab ORAL SCH (21:27)
[2019-10-18] MEDS: Latanoprost 0.005% Opth 2.5ml Soln BOTH EYES SCH (21:27)
[2019-10-19] VITALS: BP 150/77
[2019-10-19 04:00] VITALS: BP 146/75
[2019-10-19] MEDS: Heparin 25,000u/D5W 500ml 500 ML IV SCH ×2 (05:16→15:09)
--- NOTE | 2019-10-19 05:17 | NUR ---
NURSE NOTES: Patients PTT is at 73. Per protocol there is no change. Heparin drip running at 15 unitas Addendum: 10/19/19 at 0518 by Ramila Monroy RN 15 units/ kg/ hr at the rate of 43.95 mls/ hr
[2019-10-19] MEDS: NovoLOG Insulin Flexpen SUBQ SCH ×4 (06:00→21:00)
--- NOTE | 2019-10-19 07:35 | NUR ---
NURSE NOTES: pt in bed no complains of pain. pt on heparin drip. radiation monitor no signs of cardiac or respiratory distress at this time. call light within reach. Bed locked and in lowest position, side rails up x2. Will continue to monitor. pt has not had a BM since 10/14 but refusing colace.
--- NOTE | 2019-10-19 07:50 | NUR ---
HAND-OFF: Report given to RUTHANN Wagner. Patient shows no signs of distress or pain at the time. Endorsed plan of care.
--- NOTE | 2019-10-19 07:57 | Pulmonology Progress Note ---
Subjective ROS Limited/Unobtainable: No Interval Events: c/o dry eyes Allergies: Coded Allergies: CODEINE (Verified Allergy, Unknown, 10/10/19) Subjective fevers resolved leuk trending down, on RA, pulse ox stable , no signs of resp distress Objective Last 24 Hour Vital Signs Date Time Temp Pulse Resp B/P (MAP) Pulse Ox O2 Delivery O2 Flow Rate FiO2 10/19/19 04:00 98.6 77 18 146/75 (98) 96 10/19/19 04:00 78 10/19/19 00:00 71 10/19/19 00:00 98.4 69 18 150/77 (101) 96 10/18/19 21:27 73 145/79 10/18/19 21:00 Room Air 10/18/19 20:00 84 10/18/19 20:00 97.7 73 18 145/79 (101) 96 10/18/19 19:06 95 16 95 Room Air 21 10/18/19 16:00 98.1 62 20 138/79 (98) 98 10/18/19 16:00 75 10/18/19 12:00 98.6 75 19 124/58 (80) 98 10/18/19 12:00 67 10/18/19 09:00 Room Air 10/18/19 08:59 149/83 10/18/19 08:59 80 149/83 10/18/19 08:00 74 10/18/19 08:00 97.7 80 21 149/83 (105) 97 Intake and Output 10/18/19 10/19/19 19:00 07:00 Intake Total 527.40 ml 427.78 ml Output Total 2600 ml 1000 ml Balance -2072.60 ml -572.22 ml IV Total 527.40 ml 427.78 ml Output Urine Total 2600 ml 1000 ml # Voids 1 Objective General Appearance: WD/WN, no acute distress HEENT: normocephalic, atraumatic, anicteric, mucous membranes moist Respiratory: chest wall non-tender, normal breath sounds Cardiovascular: normal peripheral pulses, irregularly irregular - A fib with controlled HR Abdomen: normal bowel sounds, soft, non tender - obese Extremities: no clubbing, no edema Skin: no rash Neurologic: care management coordinator II-XII grossly normal, alert, responsive Musculoskeletal: normal muscle bulk Laboratory Tests 10/18/19 09:55: Activated Partial Thromboplast Time 94H 10/19/19 04:09: Activated Partial Thromboplast Time 73H Current Medications Medications (Trade) Dose Ordered Sig/Adria Route PRN Reason Start Time Stop Time Status Last Admin Dose Admin Acetaminophen (Tylenol) 650 mg Q4H PRN ORAL fever 10/11/19 08:30 11/09/19 08:29 10/13/19 20:22 Acetaminophen (Tylenol) 650 mg Q4H PRN RECTAL Temp >100.5 10/14/19 06:30 11/13/19 06:29 Aspirin (Ecotrin) 81 mg DAILY ORAL 10/11/19 09:00 11/25/19 08:59 10/18/19 09:00 Atorvastatin Calcium (Lipitor) 40 mg BEDTIME ORAL 10/12/19 21:00 01/10/20 20:59 10/18/19 21:27 Carvedilol (Coreg) 3.125 mg EVERY 12 HOURS ORAL 10/11/19 09:00 11/09/19 20:59 10/18/19 21:27 Ceftriaxone Sodium 1 gm/ Dextrose 55 ml @ 110 mls/hr Q24H IVPB 10/17/19 16:00 10/24/19 15:59 10/18/19 16:24 Clonidine HCl (Catapres Tab) 0.1 mg Q4H PRN ORAL Blood pressure over 160 systol 10/11/19 08:30 01/08/20 08:29 10/18/19 06:26 Dextrose (Dextrose 50%) 25 ml Q30M PRN IV Hypoglycemia 10/11/19 08:30 01/08/20 11:29 Dextrose (Dextrose 50%) 50 ml Q30M PRN IV Hypoglycemia 10/11/19 08:30 01/08/20 11:29 Docusate Sodium (Colace) 100 mg THREE TIMES A DAY ORAL 10/11/19 09:00 11/09/19 17:59 10/13/19 17:36 Gabapentin (Neurontin) 200 mg THREE TIMES A DAY ORAL 10/16/19 13:00 11/09/19 12:59 10/18/19 17:58 Heparin Sodium/ Dextrose 500 ml @ 43.95 mls/ hr ADJUST PER PROTOCOL IV 10/18/19 04:00 11/16/19 03:59 10/19/19 05:16 Insulin Aspart (NovoLOG) BEFORE MEALS AND HS SUBQ 10/11/19 11:30 01/08/20 11:29 10/19/19 06:00 Isosorbide Mononitrate (Imdur) 30 mg DAILY ORAL 10/13/19 09:00 11/12/19 08:59 10/18/19 08:59 Latanoprost (Xalatan) 1 drop BEDTIME BOTH EYES 10/17/19 21:00 11/16/19 20:59 10/18/19 21:27 Nitroglycerin (Ntg) 0.4 mg Q5M PRN SL Prn Chest Pain 10/11/19 08:30 11/09/19 11:29 Ondansetron HCl (Zofran) 4 mg Q6H PRN IVP Nausea & Vomiting 10/11/19 08:30 11/09/19 08:29 Pantoprazole (Protonix) 40 mg EVERY 12 HOURS ORAL 10/14/19 21:00 11/13/19 20:59 10/18/19 21:28 Polyethylene Glycol (Miralax) 17 gm DAILYPRN PRN ORAL Constipation 10/11/19 08:30 11/09/19 08:29 Assessment/Plan Assessment/Plan ASSESSMENT Severe sepsis with E coli bacteremia due to UTI E. coli UTI/pyelonephritis NSTEMI Suspected COVID- AFib with RVR/permanent DM ARF on CKD Anemia Morbid obesity HTN Toxic metabolic encephalopathy PLAN OF CARE tele O2 titrate to keep sat above 90%, pulmonary toilet, pulse ox stable on RA v fup CXR with enlarged cardiac size. Mild vascular congestion. Probable small left pleural effusion. abx as per ID recs COVID-19 6/ and 6/ NGT / BCX E coli, UCX E Coli / UCX + GNR, 10/10 BCX NGTD repeated BCX 10/13 and 10/14 NGT Echo with pEF troponin trending down antiplatelet therapy with ASA, beta-blockade, Imdur, statin per cardio likely NSTEMI type II in setting of sepsis, asymptomatic cardio recommended noninvasive cardiac work-up versus cardiac cath once stable from ID standpoint heparin gtt for a/c , rate control with beta-blockade, HR currently controlled Venous BLE NGT monitor renal parameters, lytes, correct electrolytes as needed fup with nephro recommendation BS management with SSI monitor H&H with goal to keep hemoglobin above 7 stool OB NGT GI prophylaxis case discussed and evaluated by supervising physician Edilma Atkins NP Oct 19, 2019 07:57
[2019-10-19 08:00] VITALS: BP 156/66
--- NOTE | 2019-10-19 09:13 | Nephrology Progress Note ---
Assessment/Plan Problem List: (1) Renal failure (ARF), acute on chronic (2) Diabetes mellitus (3) Morbid obesity (4) Chronic atrial fibrillation (5) History of DVT (deep vein thrombosis) (6) Anemia (7) NSTEMI (non-ST elevated myocardial infarction) (8) Sepsis (9) Pyelonephritis Assessment Renal failure, most likely acute on chronic. Sepsis, leukocytosis, fever, suspected 2019 novel coronavirus infection. Encephalopathy most likely toxic metabolic UTI/pyelonephritis Anemia Atrial fibrillation chronic, with fast ventricular rate. Diabetes mellitus Morbid obesity/limited mobility History of DVT Elevated troponin I Lactic acidosis Plan October 18: No can panel drawn today. Clinically stable. Will check labs in a.m. Continue per consultants. October 17: Serum creatinine stable lowering. Continues to improve. Full code. Continue per consultants. October 16: Serum creatinine lowering. White blood cell is lowering. Clinically improving. Continue per consultants. October 15: Serum creatinine lowered to 2.6. White blood cell count is also down to 17,000. Not much to add from renal standpoint of view. Continue per cardiology and per ID. October 14: Serum creatinine 2.8. No new changes. Continue per allied health teacher. Leukocytosis persists. Remains on meropenem. Continue per ID. October 13: Serum creatinine continues to lower. Troponin level also declining. Continue per cardiology management. Statins was restarted by cardiology. Continue to monitor renal parameters. October 12: Serum creatinine lowering. Troponin I is also declining. Continue per cardiology management. Will continue to follow-up renal parameters and CPK level. October 11: Statins stopped due to worsening LFTs. 1 dose of Plavix given. Imdur started. Serum creatinine stable. Continue per cardiology. Continue to monitor renal parameters and CPK. Monitor troponin I and CPK Aspirin, Coreg ,nitrate for elevated troponin Antibiotics Echocardiogram results noted Kidney ultrasound results pending Monitor urine output and renal parameters Keep the blood pressure and blood sugar in check Coumadin for DVT and atrial fibrillation IV Protonix Subjective ROS Limited/Unobtainable: No Constitutional: Reports: malaise Objective Objective Last 24 Hour Vital Signs Date Time Temp Pulse Resp B/P (MAP) Pulse Ox O2 Delivery O2 Flow Rate FiO2 10/19/19 08:00 99.3 85 20 156/66 (96) 93 10/19/19 04:00 98.6 77 18 146/75 (98) 96 10/19/19 04:00 78 10/19/19 00:00 71 10/19/19 00:00 98.4 69 18 150/77 (101) 96 10/18/19 21:27 73 145/79 10/18/19 21:00 Room Air 10/18/19 20:00 84 10/18/19 20:00 97.7 73 18 145/79 (101) 96 10/18/19 19:06 95 16 95 Room Air 21 10/18/19 16:00 98.1 62 20 138/79 (98) 98 10/18/19 16:00 75 10/18/19 12:00 98.6 75 19 124/58 (80) 98 10/18/19 12:00 67 Intake and Output 10/18/19 10/19/19 19:00 07:00 Intake Total 527.40 ml 427.78 ml Output Total 2600 ml 1000 ml Balance -2072.60 ml -572.22 ml IV Total 527.40 ml 427.78 ml Output Urine Total 2600 ml 1000 ml # Voids 1 Laboratory Tests 10/18/19 09:55: Activated Partial Thromboplast Time 94H 10/19/19 04:09: Activated Partial Thromboplast Time 73H No can panel done today Height (Feet): 5 Height (Inches): 3.00 Weight (Pounds): 323 General Appearance: no apparent distress Cardiovascular: tachycardia - Variable 80s Respiratory/Chest: decreased breath sounds Abdomen: soft, other - Obese Pantera Wallace MD Oct 19, 2019 09:13
[2019-10-19] MEDS: Imdur 30mg tab ORAL SCH (09:22)
[2019-10-19] MEDS: Aspirin EC 81mg tab ORAL SCH (09:23)
[2019-10-19] MEDS: Docusate 100mg cap ORAL SCH ×3 (09:23→17:46)
--- NOTE | 2019-10-19 09:52 | Infectious Diseases Prog Note ---
Assessment/Plan Assessment/Plan Assessment: Severe Sepsis Probable PNA- COVID neg x2- sp VEnturi mask 8L- now at RA -10/13 CXR: Mild vascular congestion. Probable small left pleural effusion. -10/10 SARS-COV2 PCR neg -10/09 CXR: Mild interstitial congestion. Cannot rule out small left pleural effusion SARS-COV2 PCR neg E.coli UTI c/w high grade bacteremia- -u/a wbc tnct, nit neg, leuk +3; ucx >100k E.coli (R Levauin; otherwise S) -10/09 Bcx / E.coli (R levaquin; otherwise S); 10/10 Bcx 1/4 E.coli; 10/13, 9 BCx NTD x4 Fever; recurrent- up to 104 (10/13);SP- Leukocytosis; recurrent up to 30s 10/13, now improving Acute encephalopathy; SP LG, worsened, now improving -renal US: Negative for hydronephrosis. Possible nonobstructive left lower pole renal calculi. Incidental finding of bilateral renal parapelvic cysts. morbid obesity HTN Dm2 hx of UTI Afib on coumadin NH resident ([facility]) Plan: Ceftriaxone #3 (abx d #02/18) for E.coli bacteremia -10/16 SP Meropenem #7 -10/13 SP IV Vancomycin #5 -10/10 SP cefepime #2 -10/09 SP Meropenem x1 -f/u cx -monitor CBC/CMP, temperatures -COVID19 neg x2; dc isolation as afebrile >72hrs and alternative diagnosis (UTi and bacteremia) -f/u repeat Bcx x2 -May need CT abd/p (ideally w contrast if Cr normalizes) if recurrent fever/ worsenign WBC Thank you for consulting [facility]. Will continue to follow along with you. Discussed with RN. Subjective Allergies: Coded Allergies: CODEINE (Verified Allergy, Unknown, 10/10/19) Subjective Afebrile WBCs 11 Objective Vital Signs Last 24 Hour Vital Signs Date Time Temp Pulse Resp B/P (MAP) Pulse Ox O2 Delivery O2 Flow Rate FiO2 10/19/19 09:23 85 156/66 10/19/19 09:22 156/66 10/19/19 08:00 99.3 85 20 156/66 (96) 93 10/19/19 04:00 98.6 77 18 146/75 (98) 96 10/19/19 04:00 78 10/19/19 00:00 71 10/19/19 00:00 98.4 69 18 150/77 (101) 96 10/18/19 21:27 73 145/79 10/18/19 21:00 Room Air 10/18/19 20:00 84 10/18/19 20:00 97.7 73 18 145/79 (101) 96 10/18/19 19:06 95 16 95 Room Air 21 10/18/19 16:00 98.1 62 20 138/79 (98) 98 10/18/19 16:00 75 10/18/19 12:00 98.6 75 19 124/58 (80) 98 10/18/19 12:00 67 Height (Feet): 5 Height (Inches): 3.00 Weight (Pounds): 323 Objective GENERAL: NAD HEENT: NCAT, MMM CHEST: Lungs are clear to auscultation bilaterally without wheezes or rales. CARDIOVASCULAR: Regular rate. S1, S2 are normal without murmurs, rubs, or gallops. ABDOMEN: Soft, nontender, nondistended. Positive bowel sounds. No evidence of hepatosplenomegaly. Currently no rebound or guarding noted. EXTREMITIES: Negative for clubbing, cyanosis, or edema. Laboratory Tests Test 10/18/19 09:55 10/19/19 04:09 Activated Partial Thromboplast Time 94 SEC (23-33) H 73 SEC (23-33) H Current Medications Medications (Trade) Dose Ordered Sig/Adria Route PRN Reason Start Time Stop Time Status Last Admin Dose Admin Acetaminophen (Tylenol) 650 mg Q4H PRN ORAL fever 10/11/19 08:30 11/09/19 08:29 10/13/19 20:22 Acetaminophen (Tylenol) 650 mg Q4H PRN RECTAL Temp >100.5 10/14/19 06:30 11/13/19 06:29 Aspirin (Ecotrin) 81 mg DAILY ORAL 10/11/19 09:00 11/25/19 08:59 10/19/19 09:23 Atorvastatin Calcium (Lipitor) 40 mg BEDTIME ORAL 10/12/19 21:00 01/10/20 20:59 10/18/19 21:27 Carvedilol (Coreg) 3.125 mg EVERY 12 HOURS ORAL 10/11/19 09:00 11/09/19 20:59 10/19/19 09:23 Ceftriaxone Sodium 1 gm/ Dextrose 55 ml @ 110 mls/hr Q24H IVPB 10/17/19 16:00 10/24/19 15:59 10/18/19 16:24 Clonidine HCl (Catapres Tab) 0.1 mg Q4H PRN ORAL Blood pressure over 160 systol 10/11/19 08:30 01/08/20 08:29 10/18/19 06:26 Dextrose (Dextrose 50%) 25 ml Q30M PRN IV Hypoglycemia 10/11/19 08:30 01/08/20 11:29 Dextrose (Dextrose 50%) 50 ml Q30M PRN IV Hypoglycemia 10/11/19 08:30 01/08/20 11:29 Docusate Sodium (Colace) 100 mg THREE TIMES A DAY ORAL 10/11/19 09:00 11/09/19 17:59 10/13/19 17:36 Gabapentin (Neurontin) 200 mg THREE TIMES A DAY ORAL 10/16/19 13:00 11/09/19 12:59 10/19/19 09:23 Heparin Sodium/ Dextrose 500 ml @ 43.95 mls/ hr ADJUST PER PROTOCOL IV 10/18/19 04:00 11/16/19 03:59 10/19/19 05:16 Insulin Aspart (NovoLOG) BEFORE MEALS AND HS SUBQ 10/11/19 11:30 01/08/20 11:29 10/19/19 06:00 Isosorbide Mononitrate (Imdur) 30 mg DAILY ORAL 10/13/19 09:00 11/12/19 08:59 10/19/19 09:22 Latanoprost (Xalatan) 1 drop BEDTIME BOTH EYES 10/17/19 21:00 11/16/19 20:59 10/18/19 21:27 Nitroglycerin (Ntg) 0.4 mg Q5M PRN SL Prn Chest Pain 10/11/19 08:30 11/09/19 11:29 Ondansetron HCl (Zofran) 4 mg Q6H PRN IVP Nausea & Vomiting 10/11/19 08:30 11/09/19 08:29 Pantoprazole (Protonix) 40 mg EVERY 12 HOURS ORAL 10/14/19 21:00 11/13/19 20:59 10/19/19 09:22 Polyethylene Glycol (Miralax) 17 gm DAILYPRN PRN ORAL Constipation 10/11/19 08:30 11/09/19 08:29 Griffin Pope MD Oct 19, 2019 09:52
--- NOTE | 2019-10-19 11:14 | Internal Med Progress Note ---
Subjective Date of Service: Oct 19, 2019 Physician Name Johny Blankenship Attending Physician Aleksandr Vega MD Current Medications Medications (Trade) Dose Ordered Sig/Adria Route PRN Reason Start Time Stop Time Status Last Admin Dose Admin Acetaminophen (Tylenol) 650 mg Q4H PRN ORAL fever 10/11/19 08:30 11/09/19 08:29 10/13/19 20:22 Acetaminophen (Tylenol) 650 mg Q4H PRN RECTAL Temp >100.5 10/14/19 06:30 11/13/19 06:29 Aspirin (Ecotrin) 81 mg DAILY ORAL 10/11/19 09:00 11/25/19 08:59 10/19/19 09:23 Atorvastatin Calcium (Lipitor) 40 mg BEDTIME ORAL 10/12/19 21:00 01/10/20 20:59 10/18/19 21:27 Carvedilol (Coreg) 3.125 mg EVERY 12 HOURS ORAL 10/11/19 09:00 11/09/19 20:59 10/19/19 09:23 Ceftriaxone Sodium 1 gm/ Dextrose 55 ml @ 110 mls/hr Q24H IVPB 10/17/19 16:00 10/24/19 15:59 10/18/19 16:24 Clonidine HCl (Catapres Tab) 0.1 mg Q4H PRN ORAL Blood pressure over 160 systol 10/11/19 08:30 01/08/20 08:29 10/18/19 06:26 Dextrose (Dextrose 50%) 25 ml Q30M PRN IV Hypoglycemia 10/11/19 08:30 01/08/20 11:29 Dextrose (Dextrose 50%) 50 ml Q30M PRN IV Hypoglycemia 10/11/19 08:30 01/08/20 11:29 Docusate Sodium (Colace) 100 mg THREE TIMES A DAY ORAL 10/11/19 09:00 11/09/19 17:59 10/13/19 17:36 Gabapentin (Neurontin) 200 mg THREE TIMES A DAY ORAL 10/16/19 13:00 11/09/19 12:59 10/19/19 09:23 Heparin Sodium/ Dextrose 500 ml @ 43.95 mls/ hr ADJUST PER PROTOCOL IV 10/18/19 04:00 11/16/19 03:59 10/19/19 05:16 Insulin Aspart (NovoLOG) BEFORE MEALS AND HS SUBQ 10/11/19 11:30 01/08/20 11:29 10/19/19 06:00 Isosorbide Mononitrate (Imdur) 30 mg DAILY ORAL 10/13/19 09:00 11/12/19 08:59 10/19/19 09:22 Latanoprost (Xalatan) 1 drop BEDTIME BOTH EYES 10/17/19 21:00 11/16/19 20:59 10/18/19 21:27 Nitroglycerin (Ntg) 0.4 mg Q5M PRN SL Prn Chest Pain 10/11/19 08:30 11/09/19 11:29 Ondansetron HCl (Zofran) 4 mg Q6H PRN IVP Nausea & Vomiting 10/11/19 08:30 11/09/19 08:29 Pantoprazole (Protonix) 40 mg EVERY 12 HOURS ORAL 10/14/19 21:00 11/13/19 20:59 10/19/19 09:22 Polyethylene Glycol (Miralax) 17 gm DAILYPRN PRN ORAL Constipation 10/11/19 08:30 11/09/19 08:29 Allergies: Coded Allergies: CODEINE (Verified Allergy, Unknown, 10/10/19) ROS Limited/Unobtainable: No Constitutional: Reports: no symptoms HEENT: Reports: no symptoms Cardiovascular: Reports: no symptoms Respiratory: Reports: no symptoms Gastrointestinal/Abdominal: Reports: no symptoms Genitourinary: Reports: no symptoms Neurologic/Psychiatric: Reports: no symptoms Subjective 74 YO F admitted with altered mental status and fever. Now UTI and sepsis. Cover for Int Med-Dr Vega. Refused V/Q scan Objective Last Vital Signs Date Time Temp Pulse Resp B/P (MAP) Pulse Ox O2 Delivery O2 Flow Rate FiO2 10/19/19 10:24 79 20 96 Room Air 21 10/19/19 09:23 156/66 10/19/19 08:00 99.3 10/14/19 21:00 8.0 Laboratory Tests Test 10/19/19 04:09 Activated Partial Thromboplast Time 73 SEC (23-33) H Intake and Output 10/18/19 10/19/19 19:00 07:00 Intake Total 527.40 ml 427.78 ml Output Total 2600 ml 1000 ml Balance -2072.60 ml -572.22 ml IV Total 527.40 ml 427.78 ml Output Urine Total 2600 ml 1000 ml # Voids 1 Objective PHYSICAL EXAMINATION: GENERAL: Patient is well-developed, well-nourished, slightly obese female, in no apparent distress. HEENT: Eyes, pupils are equal and responsive to light and accommodation. Extraocular movements are intact. NECK: Supple. No lymphadenopathy. CHEST: Lungs are clear to auscultation bilaterally without wheezes or rales. CARDIOVASCULAR: Regular rate. S1, S2 are normal without murmurs, rubs, or gallops. ABDOMEN: Soft, nontender, nondistended. Positive bowel sounds. No evidence of hepatosplenomegaly. Currently no rebound or guarding noted. EXTREMITIES: Negative for clubbing, cyanosis, or edema. RECTAL/GENITAL: Not performed. NEUROLOGIC: Cranial nerves II to XII grossly intact without focal deficits Assessment/Plan Assessment/Plan ASSESSMENT: This is a 74-year-old female. 1. Sepsis=E. Coli 2. UTI=E. Coli 3. Altered mental status. 4. Leukocytosis. 5. Elevated troponin. 6. Atrial fibrillation. 7. Diabetes type 2. 8. Hypertension. 9. Hyperthyroidism. 10. Coronary artery disease. 11. Renal failure. 12. Hypercholesterolemia. 13. Chronic lymphedema of the bilateral lower extremities. 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 Urinary Tract infection-E. Coli ABX=ceftriaxone, S/P meropenem. Infectious Disease=Dr. Mays. We will follow recommendations of Infectious Disease. 2. Sepsis=E. Coli Await culture and sensitivity result. Continue meropenem per ID. 3. Altered mental status. Resolved 4. Leukocytosis. Resolved 5. Elevated troponin. A Cardiology consultation has been obtained with Dr. Arun Barker. 6. Atrial fibrillation. Continue Coumadin as above. A Cardiology consultation has been obtained with Dr. Arun Barker. 7. Diabetes type 2. NovoLog sliding scale has been instituted. 8. Hypertension. Patient is currently hypotensive. Hold amlodipine as above. 9. Hyperthyroidism. Continue methimazole as above. 10. Coronary artery disease. Patient has elevated troponin. A Cardiology consultation has been obtained with Dr. Arun Barker. 11. Renal failure. A Nephrology consultation has been obtained with Dr. Pantera Wallace. 12. Hypercholesterolemia. Continue simvastatin as above. 13. Chronic lymphedema of bilateral lower extremities. 14. Will need CT abdomen/pelvis to R/O abscess-see ID note. 15. Await cardiac cath-see cardiology note 16. Refused V/Q scan to R/O pulmonary embolism Johny Blankenship MD Oct 19, 2019 11:14
[2019-10-19 12:00] VITALS: BP 155/80
[2019-10-19] MEDS: cefTRIAXone 1 GM in D5W 55 ML IVPB SCH (15:14)
[2019-10-19 16:00] VITALS: BP 146/75
--- NOTE | 2019-10-19 19:50 | NUR ---
HAND-OFF: Report given to Fawn/RUTHANN, pt in stable condition.
--- NOTE | 2019-10-19 19:55 | NUR ---
NURSE NOTES: Report received from rKisty . pt is sitting in semi fowlers, Pt is alert and oriented x4, on room air. Pt is currently on a heparin drip at 15 units/kg/hour with recent PTT at 73. No rate change and within therapeutic range. Next PTT will be drawn with am labs on 10/19 at 0400. vehicle monitor technician, running SR , no signs of cardiac or respiratory distress at this time. Bed is locked in lowest position, call light within reach, side rails x2. Will continue to monitor, reported from day shift that her heart rate was slightly bradycardic in the mid 50's. Currently her heart rate is 62 bpm. Will continue to monitor and reposition frequently.
[2019-10-19 20:00] VITALS: BP 146/87
--- NOTE | 2019-10-19 20:21 | Cardiology Progress Note ---
Assessment/Plan Assessment/Plan Non ST elevation FL, the patient might go for cardaic cath. creatinine is stable. Subjective Subjective The patient is sitting on her bed and she reports feeling good. She denies chest pain or dyspnea. Objective Last 24 Hour Vital Signs Date Time Temp Pulse Resp B/P (MAP) Pulse Ox O2 Delivery O2 Flow Rate FiO2 10/19/19 19:31 83 20 96 Room Air 21 10/19/19 16:00 61 10/19/19 16:00 98.6 77 18 146/75 (98) 96 10/19/19 12:00 63 10/19/19 12:00 97.7 75 19 155/80 (105) 95 10/19/19 10:24 79 20 96 Room Air 21 10/19/19 09:23 85 156/66 10/19/19 09:22 156/66 10/19/19 09:00 Room Air 10/19/19 08:00 99.3 85 20 156/66 (96) 93 10/19/19 08:00 79 10/19/19 04:00 98.6 77 18 146/75 (98) 96 10/19/19 04:00 78 10/19/19 00:00 71 10/19/19 00:00 98.4 69 18 150/77 (101) 96 10/18/19 21:27 73 145/79 10/18/19 21:00 Room Air General Appearance: no apparent distress EENT: normal ENT inspection Neck: normal inspection, no JVD Rhythm: NSR Cardiovascular: regular rhythm Respiratory/Chest: normal breath sounds Abdomen: soft Extremities: no swelling Intake and Output 10/18/19 10/19/19 19:00 07:00 Intake Total 527.40 ml 427.78 ml Output Total 2600 ml 1000 ml Balance -2072.60 ml -572.22 ml IV Total 527.40 ml 427.78 ml Output Urine Total 2600 ml 1000 ml # Voids 1 Laboratory Tests Test 10/19/19 04:09 Activated Partial Thromboplast Time 73 SEC (23-33) Marisa Mandujano MD Oct 19, 2019 20:21
[2019-10-19] MEDS: Atorvastatin 20mg tab ORAL SCH (21:30)
[2019-10-19] MEDS: Latanoprost 0.005% Opth 2.5ml Soln BOTH EYES SCH (21:34)
[2019-10-20] VITALS: BP 152/74
[2019-10-20] MEDS: Heparin 25,000u/D5W 500ml 500 ML IV SCH ×3 (01:29→14:52)
[2019-10-20] MEDS ORDERED: Morphine Sulfate 2mg/ml Inj(IV/IM USE ONLY) IVP PRN (01:30)
[2019-10-20] MEDS: traMADol 50mg tab ORAL PRN ×3 (01:45→17:36)
[2019-10-20 04:00] VITALS: BP 152/63
[2019-10-20 05:41] LABS: BASOPHILS % (AUTO) 0.7 % (0.0-2.0); EOSINOPHILS % (AUTO) 1.7 % (0.0-3.0); HEMATOCRIT 28.6 % (37.0-47.0); HEMOGLOBIN 8.6 G/DL (12.0-16.0); MEAN CORPUSCULAR VOLUME 89 FL (80-99); MONOCYTES % (AUTO) 7.7 % (1.0-10.0); NEUTROPHILS % (AUTO) 75.9 % (45.0-75.0); PLATELET COUNT 330 K/UL (150-450); RED BLOOD COUNT 3.22 M/UL (4.20-5.40); RED CELL DISTRIBUTION WIDTH 15.7 % (11.6-14.8); WHITE BLOOD COUNT 9.7 K/UL (4.8-10.8)
[2019-10-20] MEDS: NovoLOG Insulin Flexpen SUBQ SCH ×4 (06:30→22:01)
--- NOTE | 2019-10-20 07:00 | NUR ---
NURSE NOTES: PTT is therapeutic at 72 Continue heparin drip at 15 units/kg/hour. No rate change, repeat PTT 10/20 at 0400
[2019-10-20 07:09] LABS: ALANINE AMINOTRANSFERASE 10 U/L (12-78); ALBUMIN 2.1 G/DL (3.4-5.0); ALBUMIN/GLOBULIN RATIO 0.4 (1.0-2.7); ALKALINE PHOSPHATASE 93 U/L (46-116); ANION GAP 10 mmol/L (5-15); ASPARTATE AMINO TRANSFERASE 17 U/L (15-37); BILIRUBIN,TOTAL 0.4 MG/DL (0.2-1.0); BLOOD UREA NITROGEN 32 mg/dL (7-18); CALCIUM 8.4 MG/DL (8.5-10.1); CARBON DIOXIDE 28 MMOL/L (21-32); CHLORIDE 102 MMOL/L (98-107); PHOSPHORUS 4.6 MG/DL (2.5-4.9); POTASSIUM 4.3 MMOL/L (3.5-5.1); SODIUM 139 MMOL/L (136-145)
--- NOTE | 2019-10-20 07:28 | NUR ---
HAND-OFF: Report given to RUTHANN Wagner.
--- NOTE | 2019-10-20 07:42 | Pulmonology Progress Note ---
Subjective ROS Limited/Unobtainable: No Interval Events: c/o dry eyes Allergies: Coded Allergies: CODEINE (Verified Allergy, Unknown, 10/10/19) Subjective fevers and leukocytosis resolved on RA, pulse ox stable , no signs of resp distress creat tending down reports pain left lower quadrant , intermittent after venous Duplex done , no n/ v/diarrhea, no f/c/ Objective Last 24 Hour Vital Signs Date Time Temp Pulse Resp B/P (MAP) Pulse Ox O2 Delivery O2 Flow Rate FiO2 10/20/19 04:00 98.1 86 25 152/63 (92) 94 10/20/19 04:00 86 10/20/19 00:00 98.1 84 26 152/74 (100) 95 10/20/19 00:00 86 10/19/19 21:29 85 146/87 10/19/19 21:00 Room Air 10/19/19 20:00 61 10/19/19 20:00 96.1 82 24 146/87 (106) 94 10/19/19 19:31 83 20 96 Room Air 21 10/19/19 16:00 61 10/19/19 16:00 98.6 77 18 146/75 (98) 96 10/19/19 12:00 63 10/19/19 12:00 97.7 75 19 155/80 (105) 95 10/19/19 10:24 79 20 96 Room Air 21 10/19/19 09:23 85 156/66 10/19/19 09:22 156/66 10/19/19 09:00 Room Air 10/19/19 08:00 99.3 85 20 156/66 (96) 93 10/19/19 08:00 79 Intake and Output 10/19/19 10/20/19 19:00 07:00 Intake Total 883.95 ml 263.70 ml Output Total 1200 ml Balance -316.05 ml 263.70 ml Intake Oral 840 ml IV Total 43.95 ml 263.70 ml Output Urine Total 1200 ml # Bowel Movements 1 Objective General Appearance: WD/WN, no acute distress HEENT: normocephalic, atraumatic, anicteric, mucous membranes moist Respiratory: chest wall non-tender, normal breath sounds Cardiovascular: normal peripheral pulses, irregularly irregular - A fib with controlled HR Abdomen: normal bowel sounds, soft, non tender - obese Extremities: no clubbing, no edema Skin: no rash Neurologic: reverberatory skimmer II-XII grossly normal, alert, responsive Musculoskeletal: normal muscle bulk Laboratory Tests 10/20/19 04:55: White Blood Count 9.7, Red Blood Count 3.22L, Hemoglobin 8.6L, Hematocrit 28.6L , Mean Corpuscular Volume 89, Mean Corpuscular Hemoglobin 26.8L, Mean Corpuscular Hemoglobin Concent 30.1L, Red Cell Distribution Width 15.7H, Platelet Count 330, Mean Platelet Volume 9.2, Neutrophils (%) (Auto) 75.9H, Lymphocytes (%) (Auto) 14.0L, Monocytes (%) (Auto) 7.7, Eosinophils (%) (Auto) 1.7, Basophils (%) (Auto) 0.7, Activated Partial Thromboplast Time 72H, Sodium Level 139, Potassium Level 4.3, Chloride Level 102, Carbon Dioxide Level 28, Anion Gap 10, Blood Urea Nitrogen 32H, Creatinine 2.0H, Estimat Glomerular Filtration Rate 29.5, Glucose Level 199H, Calcium Level 8.4L, Phosphorus Level 4.6, Magnesium Level 1.7L, Total Bilirubin 0.4, Aspartate Amino Transf (AST/SGOT ) 17, Alanine Aminotransferase (ALT/SGPT) 10L, Alkaline Phosphatase 93, C- Reactive Protein, Quantitative 4.8H, Pro-B-Type Natriuretic Peptide 75180N, Total Protein 6.8, Albumin 2.1L, Globulin 4.7, Albumin/Globulin Ratio 0.4L Current Medications Medications (Trade) Dose Ordered Sig/Adria Route PRN Reason Start Time Stop Time Status Last Admin Dose Admin Acetaminophen (Tylenol) 650 mg Q4H PRN ORAL fever 10/11/19 08:30 11/09/19 08:29 10/13/19 20:22 Acetaminophen (Tylenol) 650 mg Q4H PRN RECTAL Temp >100.5 10/14/19 06:30 11/13/19 06:29 Aspirin (Ecotrin) 81 mg DAILY ORAL 10/11/19 09:00 11/25/19 08:59 10/19/19 09:23 Atorvastatin Calcium (Lipitor) 40 mg BEDTIME ORAL 10/12/19 21:00 01/10/20 20:59 10/19/19 21:30 Carvedilol (Coreg) 3.125 mg EVERY 12 HOURS ORAL 10/11/19 09:00 11/09/19 20:59 10/19/19 21:29 Ceftriaxone Sodium 1 gm/ Dextrose 55 ml @ 110 mls/hr Q24H IVPB 10/17/19 16:00 10/24/19 15:59 10/19/19 15:14 Clonidine HCl (Catapres Tab) 0.1 mg Q4H PRN ORAL Blood pressure over 160 systol 10/11/19 08:30 01/08/20 08:29 10/18/19 06:26 Dextrose (Dextrose 50%) 25 ml Q30M PRN IV Hypoglycemia 10/11/19 08:30 01/08/20 11:29 Dextrose (Dextrose 50%) 50 ml Q30M PRN IV Hypoglycemia 10/11/19 08:30 01/08/20 11:29 Docusate Sodium (Colace) 100 mg THREE TIMES A DAY ORAL 10/11/19 09:00 11/09/19 17:59 10/13/19 17:36 Gabapentin (Neurontin) 200 mg THREE TIMES A DAY ORAL 10/16/19 13:00 11/09/19 12:59 10/19/19 17:45 Heparin Sodium/ Dextrose 500 ml @ 43.953 mls/ hr ADJUST PER PROTOCOL IV 10/20/19 07:30 11/16/19 03:59 Insulin Aspart (NovoLOG) BEFORE MEALS AND HS SUBQ 10/11/19 11:30 01/08/20 11:29 10/19/19 17:48 Isosorbide Mononitrate (Imdur) 30 mg DAILY ORAL 10/13/19 09:00 11/12/19 08:59 10/19/19 09:22 Latanoprost (Xalatan) 1 drop BEDTIME BOTH EYES 10/17/19 21:00 11/16/19 20:59 10/19/19 21:34 Morphine Sulfate (Morphine Sulfate) 2 mg Q4H PRN IVP For Pain 10/20/19 01:30 10/27/19 01:29 Nitroglycerin (Ntg) 0.4 mg Q5M PRN SL Prn Chest Pain 10/11/19 08:30 11/09/19 11:29 Ondansetron HCl (Zofran) 4 mg Q6H PRN IVP Nausea & Vomiting 10/11/19 08:30 11/09/19 08:29 Pantoprazole (Protonix) 40 mg EVERY 12 HOURS ORAL 10/14/19 21:00 11/13/19 20:59 10/19/19 21:30 Polyethylene Glycol (Miralax) 17 gm DAILYPRN PRN ORAL Constipation 10/11/19 08:30 11/09/19 08:29 Tramadol HCl (Ultram) 50 mg Q6H PRN ORAL For Pain 10/20/19 01:30 10/27/19 01:29 10/20/19 01:45 Assessment/Plan Assessment/Plan ASSESSMENT Severe sepsis with E coli bacteremia due to UTI E. coli UTI/pyelonephritis NSTEMI Suspected COVID-19 AFib with RVR/permanent DM ARF on CKD Anemia Morbid obesity HTN Toxic metabolic encephalopathy PLAN OF CARE tele O2 titrate to keep sat above 90%, pulmonary toilet, pulse ox stable on RA v fup CXR with enlarged cardiac size. Mild vascular congestion. Probable small left pleural effusion. abx as per ID recs COVID-19 / and 10/10 NGT / BCX E coli, UCX E Coli / UCX + GNR, 10/10 BCX NGTD repeated BCX 10/13 and 10/14 NGT Echo with pEF troponin trending down antiplatelet therapy with ASA, beta-blockade, Imdur, statin per cardio likely NSTEMI type II in setting of sepsis, asymptomatic cardio recommended noninvasive cardiac work-up versus cardiac cath once stable from ID standpoint heparin gtt for a/c , rate control with beta-blockade, HR currently controlled Venous BLE NGT monitor renal parameters, lytes, correct electrolytes as needed fup with nephro recommendation monitor for LLQ abd pain, felt could be due to pyelo, but consider further imaging if not resolved BS management with SSI monitor H&H with goal to keep hemoglobin above 7 stool OB NGT GI prophylaxis case discussed and evaluated by supervising physician Edilma Atkins NP Oct 20, 2019 07:42
--- NOTE | 2019-10-20 07:45 | NUR ---
NURSE NOTES: pt in bed resting. Pt complains of pain in her left groin, informed doctor Mckayla, and Yudith. Pt on satellite project site monitor no signs of cardiac or respiratory distress at this time. pt on heparin drip. Bed in lowest position, bed locked, call light within reach, side rails up. pt has a alexandra draining well. Will continue to monitor pt.
[2019-10-20] MEDS: Docusate 100mg cap ORAL SCH ×3 (08:22→17:30)
[2019-10-20 08:23] VITALS: BP 171/92
[2019-10-20] MEDS: Aspirin EC 81mg tab ORAL SCH (08:51)
[2019-10-20] MEDS: Imdur 30mg tab ORAL SCH (08:51)
--- NOTE | 2019-10-20 11:27 | Nephrology Progress Note ---
Assessment/Plan Problem List: (1) Renal failure (ARF), acute on chronic (2) Diabetes mellitus (3) Morbid obesity (4) Chronic atrial fibrillation (5) History of DVT (deep vein thrombosis) (6) Anemia (7) NSTEMI (non-ST elevated myocardial infarction) (8) Sepsis (9) Pyelonephritis Assessment Renal failure, most likely acute on chronic. Sepsis, leukocytosis, fever, suspected 2019 novel coronavirus infection. Encephalopathy most likely toxic metabolic UTI/pyelonephritis Anemia Atrial fibrillation chronic, with fast ventricular rate. Diabetes mellitus Morbid obesity/limited mobility History of DVT Elevated troponin I Lactic acidosis Plan October 19: Lab reviewed. Creatinine lower. Will adjust blood pressure medication. Leukocytosis resolved. October 18: No can panel drawn today. Clinically stable. Will check labs in a.m. Continue per consultants. October 17: Serum creatinine stable lowering. Continues to improve. Full code. Continue per consultants. October 16: Serum creatinine lowering. White blood cell is lowering. Clinically improving. Continue per consultants. October 15: Serum creatinine lowered to 2.6. White blood cell count is also down to 17,000. Not much to add from renal standpoint of view. Continue per cardiology and per ID. October 14: Serum creatinine 2.8. No new changes. Continue per small brake form operator. Leukocytosis persists. Remains on meropenem. Continue per ID. October 13: Serum creatinine continues to lower. Troponin level also declining. Continue per cardiology management. Statins was restarted by cardiology. Continue to monitor renal parameters. October 12: Serum creatinine lowering. Troponin I is also declining. Continue per cardiology management. Will continue to follow-up renal parameters and CPK level. October 11: Statins stopped due to worsening LFTs. 1 dose of Plavix given. Imdur started. Serum creatinine stable. Continue per cardiology. Continue to monitor renal parameters and CPK. Monitor troponin I and CPK Aspirin, Coreg ,nitrate for elevated troponin Antibiotics Echocardiogram results noted Kidney ultrasound results pending Monitor urine output and renal parameters Keep the blood pressure and blood sugar in check Coumadin for DVT and atrial fibrillation IV Protonix Subjective ROS Limited/Unobtainable: No Constitutional: Reports: malaise Objective Objective Last 24 Hour Vital Signs Date Time Temp Pulse Resp B/P (MAP) Pulse Ox O2 Delivery O2 Flow Rate FiO2 10/20/19 09:00 Room Air 10/20/19 08:52 75 171/92 10/20/19 08:51 171/92 10/20/19 08:23 98.9 75 19 171/92 (118) 100 10/20/19 08:00 71 10/20/19 07:47 85 18 96 Room Air 21 10/20/19 04:00 98.1 86 25 152/63 (92) 94 10/20/19 04:00 86 10/20/19 00:00 98.1 84 26 152/74 (100) 95 10/20/19 00:00 86 10/19/19 21:29 85 146/87 10/19/19 21:00 Room Air 10/19/19 20:00 61 10/19/19 20:00 96.1 82 24 146/87 (106) 94 10/19/19 19:31 83 20 96 Room Air 21 10/19/19 16:00 61 10/19/19 16:00 98.6 77 18 146/75 (98) 96 10/19/19 12:00 63 10/19/19 12:00 97.7 75 19 155/80 (105) 95 Intake and Output 10/19/19 10/20/19 19:00 07:00 Intake Total 883.95 ml 263.70 ml Output Total 1200 ml Balance -316.05 ml 263.70 ml Intake Oral 840 ml IV Total 43.95 ml 263.70 ml Output Urine Total 1200 ml # Bowel Movements 1 Laboratory Tests 10/20/19 04:55: White Blood Count 9.7, Red Blood Count 3.22L, Hemoglobin 8.6L, Hematocrit 28.6L , Mean Corpuscular Volume 89, Mean Corpuscular Hemoglobin 26.8L, Mean Corpuscular Hemoglobin Concent 30.1L, Red Cell Distribution Width 15.7H, Platelet Count 330, Mean Platelet Volume 9.2, Neutrophils (%) (Auto) 75.9H, Lymphocytes (%) (Auto) 14.0L, Monocytes (%) (Auto) 7.7, Eosinophils (%) (Auto) 1.7, Basophils (%) (Auto) 0.7, Activated Partial Thromboplast Time 72H, Sodium Level 139, Potassium Level 4.3, Chloride Level 102, Carbon Dioxide Level 28, Anion Gap 10, Blood Urea Nitrogen 32H, Creatinine 2.0H, Estimat Glomerular Filtration Rate 29.5, Glucose Level 199H, Calcium Level 8.4L, Phosphorus Level 4.6, Magnesium Level 1.7L, Total Bilirubin 0.4, Aspartate Amino Transf (AST/SGOT ) 17, Alanine Aminotransferase (ALT/SGPT) 10L, Alkaline Phosphatase 93, C- Reactive Protein, Quantitative 4.8H, Pro-B-Type Natriuretic Peptide 20526H, Total Protein 6.8, Albumin 2.1L, Globulin 4.7, Albumin/Globulin Ratio 0.4L Height (Feet): 5 Height (Inches): 3.00 Weight (Pounds): 323 General Appearance: no apparent distress Cardiovascular: normal rate Respiratory/Chest: decreased breath sounds Abdomen: other - Obese Pantera Wallace MD Oct 20, 2019 11:27
[2019-10-20 12:00] VITALS: BP 145/85
--- NOTE | 2019-10-20 14:03 | Internal Med Progress Note ---
Subjective Date of Service: Oct 20, 2019 Physician Name Johny Blankenship Attending Physician Aleksandr Vega MD Current Medications Medications (Trade) Dose Ordered Sig/Adria Route PRN Reason Start Time Stop Time Status Last Admin Dose Admin Acetaminophen (Tylenol) 650 mg Q4H PRN ORAL fever 10/11/19 08:30 11/09/19 08:29 10/13/19 20:22 Acetaminophen (Tylenol) 650 mg Q4H PRN RECTAL Temp >100.5 10/14/19 06:30 11/13/19 06:29 Amlodipine Besylate (Norvasc) 10 mg DAILY ORAL 10/21/19 09:00 11/20/19 08:59 Aspirin (Ecotrin) 81 mg DAILY ORAL 10/11/19 09:00 11/25/19 08:59 10/20/19 08:51 Atorvastatin Calcium (Lipitor) 40 mg BEDTIME ORAL 10/12/19 21:00 01/10/20 20:59 10/19/19 21:30 Carvedilol (Coreg) 3.125 mg EVERY 12 HOURS ORAL 10/11/19 09:00 11/09/19 20:59 10/20/19 08:52 Ceftriaxone Sodium 1 gm/ Dextrose 55 ml @ 110 mls/hr Q24H IVPB 10/17/19 16:00 10/24/19 15:59 10/19/19 15:14 Clonidine HCl (Catapres Tab) 0.1 mg Q4H PRN ORAL Blood pressure over 160 systol 10/11/19 08:30 01/08/20 08:29 10/18/19 06:26 Dextrose (Dextrose 50%) 25 ml Q30M PRN IV Hypoglycemia 10/11/19 08:30 01/08/20 11:29 Dextrose (Dextrose 50%) 50 ml Q30M PRN IV Hypoglycemia 10/11/19 08:30 01/08/20 11:29 Docusate Sodium (Colace) 100 mg THREE TIMES A DAY ORAL 10/11/19 09:00 11/09/19 17:59 10/13/19 17:36 Gabapentin (Neurontin) 200 mg THREE TIMES A DAY ORAL 10/16/19 13:00 11/09/19 12:59 10/20/19 12:47 Heparin Sodium/ Dextrose 500 ml @ 43.953 mls/ hr ADJUST PER PROTOCOL IV 10/20/19 07:30 11/16/19 03:59 Insulin Aspart (NovoLOG) BEFORE MEALS AND HS SUBQ 10/11/19 11:30 01/08/20 11:29 10/20/19 12:58 Isosorbide Mononitrate (Imdur) 30 mg DAILY ORAL 10/13/19 09:00 11/12/19 08:59 10/20/19 08:51 Latanoprost (Xalatan) 1 drop BEDTIME BOTH EYES 10/17/19 21:00 11/16/19 20:59 10/19/19 21:34 Morphine Sulfate (Morphine Sulfate) 2 mg Q4H PRN IVP For Pain 10/20/19 01:30 10/27/19 01:29 Nitroglycerin (Ntg) 0.4 mg Q5M PRN SL Prn Chest Pain 10/11/19 08:30 11/09/19 11:29 Ondansetron HCl (Zofran) 4 mg Q6H PRN IVP Nausea & Vomiting 10/11/19 08:30 11/09/19 08:29 Pantoprazole (Protonix) 40 mg EVERY 12 HOURS ORAL 10/14/19 21:00 11/13/19 20:59 10/20/19 08:51 Polyethylene Glycol (Miralax) 17 gm DAILYPRN PRN ORAL Constipation 10/11/19 08:30 11/09/19 08:29 Tramadol HCl (Ultram) 50 mg Q6H PRN ORAL For Pain 10/20/19 01:30 10/27/19 01:29 10/20/19 08:50 Allergies: Coded Allergies: CODEINE (Verified Allergy, Unknown, 10/10/19) ROS Limited/Unobtainable: No Constitutional: Reports: no symptoms HEENT: Reports: no symptoms Cardiovascular: Reports: no symptoms Respiratory: Reports: no symptoms Gastrointestinal/Abdominal: Reports: no symptoms Genitourinary: Reports: no symptoms Neurologic/Psychiatric: Reports: no symptoms Subjective 74 YO F admitted with altered mental status and fever. Now UTI and sepsis. Cover for Int Pablo-Dr Vega. Refused V/Q scan Objective Last Vital Signs Date Time Temp Pulse Resp B/P (MAP) Pulse Ox O2 Delivery O2 Flow Rate FiO2 10/20/19 12:46 75 145/85 10/20/19 09:00 Room Air 10/20/19 08:23 98.9 19 100 10/20/19 07:47 21 10/14/19 21:00 8.0 Laboratory Tests Test 10/20/19 04:55 White Blood Count 9.7 K/UL (4.8-10.8) Red Blood Count 3.22 M/UL (4.20-5.40) L Hemoglobin 8.6 G/DL (12.0-16.0) L Hematocrit 28.6 % (37.0-47.0) L Mean Corpuscular Volume 89 FL (80-99) Mean Corpuscular Hemoglobin 26.8 PG (27.0-31.0) L Mean Corpuscular Hemoglobin Concent 30.1 G/DL (32.0-36.0) L Red Cell Distribution Width 15.7 % (11.6-14.8) H Platelet Count 330 K/UL (150-450) Mean Platelet Volume 9.2 FL (6.5-10.1) Neutrophils (%) (Auto) 75.9 % (45.0-75.0) H Lymphocytes (%) (Auto) 14.0 % (20.0-45.0) L Monocytes (%) (Auto) 7.7 % (1.0-10.0) Eosinophils (%) (Auto) 1.7 % (0.0-3.0) Basophils (%) (Auto) 0.7 % (0.0-2.0) Activated Partial Thromboplast Time 72 SEC (23-33) H Sodium Level 139 MMOL/L (136-145) Potassium Level 4.3 MMOL/L (3.5-5.1) Chloride Level 102 MMOL/L (98-107) Carbon Dioxide Level 28 MMOL/L (21-32) Anion Gap 10 mmol/L (5-15) Blood Urea Nitrogen 32 mg/dL (7-18) H Creatinine 2.0 MG/DL (0.55-1.30) H Estimat Glomerular Filtration Rate 29.5 mL/min (>60) Glucose Level 199 MG/DL (74-106) H Calcium Level 8.4 MG/DL (8.5-10.1) L Phosphorus Level 4.6 MG/DL (2.5-4.9) Magnesium Level 1.7 MG/DL (1.8-2.4) L Total Bilirubin 0.4 MG/DL (0.2-1.0) Aspartate Amino Transf (AST/SGOT) 17 U/L (15-37) Alanine Aminotransferase (ALT/SGPT) 10 U/L (12-78) L Alkaline Phosphatase 93 U/L (46-116) C-Reactive Protein, Quantitative 4.8 mg/dL (0.00-0.90) H Pro-B-Type Natriuretic Peptide 89799 pg/mL (0-125) H Total Protein 6.8 G/DL (6.4-8.2) Albumin 2.1 G/DL (3.4-5.0) L Globulin 4.7 g/dL Albumin/Globulin Ratio 0.4 (1.0-2.7) L Intake and Output 10/19/19 10/20/19 19:00 07:00 Intake Total 883.95 ml 263.70 ml Output Total 1200 ml Balance -316.05 ml 263.70 ml Intake Oral 840 ml IV Total 43.95 ml 263.70 ml Output Urine Total 1200 ml # Bowel Movements 1 Objective PHYSICAL EXAMINATION: GENERAL: Patient is well-developed, well-nourished, slightly obese female, in no apparent distress. HEENT: Eyes, pupils are equal and responsive to light and accommodation. Extraocular movements are intact. NECK: Supple. No lymphadenopathy. CHEST: Lungs are clear to auscultation bilaterally without wheezes or rales. CARDIOVASCULAR: Regular rate. S1, S2 are normal without murmurs, rubs, or gallops. ABDOMEN: Soft, nontender, nondistended. Positive bowel sounds. No evidence of hepatosplenomegaly. Currently no rebound or guarding noted. EXTREMITIES: Negative for clubbing, cyanosis, or edema. RECTAL/GENITAL: Not performed. NEUROLOGIC: Cranial nerves II to XII grossly intact without focal deficits Assessment/Plan Assessment/Plan ASSESSMENT: This is a 74-year-old female. 1. Sepsis=E. Coli 2. UTI=E. Coli 3. Altered mental status. 4. Leukocytosis. 5. Elevated troponin. 6. Atrial fibrillation. 7. Diabetes type 2. 8. Hypertension. 9. Hyperthyroidism. 10. Coronary artery disease. 11. Renal failure. 12. Hypercholesterolemia. 13. Chronic lymphedema of the bilateral lower extremities. 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 Urinary Tract infection-E. Coli ABX=ceftriaxone, S/P meropenem. Infectious Disease=Dr. Mays. We will follow recommendations of Infectious Disease. 2. Sepsis=E. Coli Await culture and sensitivity result. Continue meropenem per ID. 3. Altered mental status. Resolved 4. Leukocytosis. Resolved 5. Elevated troponin. A Cardiology consultation has been obtained with Dr. Arun Barker. 6. Atrial fibrillation. Continue Coumadin as above. A Cardiology consultation has been obtained with Dr. Arun Barker. 7. Diabetes type 2. NovoLog sliding scale has been instituted. 8. Hypertension. Patient is currently hypotensive. Hold amlodipine as above. 9. Hyperthyroidism. Continue methimazole as above. 10. Coronary artery disease. Patient has elevated troponin. A Cardiology consultation has been obtained with Dr. Arun Barker. 11. Renal failure. A Nephrology consultation has been obtained with Dr. Pantera Wallace. 12. Hypercholesterolemia. Continue simvastatin as above. 13. Chronic lymphedema of bilateral lower extremities. 14. Will need CT abdomen/pelvis to R/O abscess-see ID note. 15. Await cardiac cath-see cardiology note 16. Refused V/Q scan to R/O pulmonary embolism; on heparin Johny Her MD Oct 20, 2019 14:03
[2019-10-20 16:00] VITALS: BP 157/80
[2019-10-20] MEDS: cefTRIAXone 1 GM in D5W 55 ML IVPB SCH (16:00)
[2019-10-20] MEDS ORDERED: Tubing IV Secondary IV ONE (17:55)
[2019-10-20] MEDS ORDERED: NS 275ml ONE (17:55)
--- NOTE | 2019-10-20 19:17 | NUR ---
HAND-OFF: Report given to Radha/RUTHANN, pt in stable condition.
--- NOTE | 2019-10-20 19:25 | NUR ---
NURSE NOTES: Received patient report from RUTHANN Wagner. Patient is A/O x 4. In no acute distress respirations even and unlabored on room air. Patient's IV is patent, asymptomatic, changed the transparent dressing, Iv is on right forearm 22 g running Heparin drip at 15 ml/kg/hr. Last PTT was 72 and is within therapeutic range. No signs of bleeding. Anne catheter secured to leg, patent and draining. Bed is in the lowest position, locks, side rails x3, call light within reach. Will continue plan of care. tried to educate patient that it is important to turn and reposition to prevent formation or deterioration of skin integrity, has present small sacral but it appears to be healing. Pt states she is comfortable at this time.
[2019-10-20 20:00] VITALS: BP 144/69
--- NOTE | 2019-10-20 20:00 | NUR ---
NURSE NOTES: Appears to have moisture associated skin damage in lower buttocks, rash and irritation, sacrum is intact, triad applied, put in - initiate wound care per protocol, sacral area is intact,
--- NOTE | 2019-10-20 20:52 | Cardiology Progress Note ---
Assessment/Plan Assessment/Plan n new events, elevated troponin, work up is in progress Subjective Subjective The patient is sitting on her bed and she reports feeling good. She denies chest pain or dyspnea. Objective Last 24 Hour Vital Signs Date Time Temp Pulse Resp B/P (MAP) Pulse Ox O2 Delivery O2 Flow Rate FiO2 10/20/19 20:00 96.6 87 19 144/69 (94) 95 10/20/19 16:00 98.8 74 20 157/80 (105) 98 10/20/19 16:00 80 10/20/19 12:46 75 145/85 10/20/19 12:00 98.1 69 20 145/85 (105) 98 10/20/19 12:00 68 10/20/19 09:00 Room Air 10/20/19 08:52 75 171/92 10/20/19 08:51 171/92 10/20/19 08:23 98.9 75 19 171/92 (118) 100 10/20/19 08:00 71 10/20/19 07:47 85 18 96 Room Air 21 10/20/19 04:00 98.1 86 25 152/63 (92) 94 10/20/19 04:00 86 10/20/19 00:00 98.1 84 26 152/74 (100) 95 10/20/19 00:00 86 10/19/19 21:29 85 146/87 10/19/19 21:00 Room Air General Appearance: no apparent distress EENT: PERRL/EOMI Neck: no JVD Rhythm: PACs Cardiovascular: normal rate Respiratory/Chest: lungs clear Abdomen: non tender, soft Extremities: no swelling Intake and Output 10/19/19 10/20/19 19:00 07:00 Intake Total 883.95 ml 263.70 ml Output Total 1200 ml Balance -316.05 ml 263.70 ml Intake Oral 840 ml IV Total 43.95 ml 263.70 ml Output Urine Total 1200 ml # Bowel Movements 1 Laboratory Tests Test 10/20/19 04:55 White Blood Count 9.7 K/UL (4.8-10.8) Red Blood Count 3.22 M/UL (4.20-5.40) L Hemoglobin 8.6 G/DL (12.0-16.0) L Hematocrit 28.6 % (37.0-47.0) L Mean Corpuscular Volume 89 FL (80-99) Mean Corpuscular Hemoglobin 26.8 PG (27.0-31.0) L Mean Corpuscular Hemoglobin Concent 30.1 G/DL (32.0-36.0) L Red Cell Distribution Width 15.7 % (11.6-14.8) H Platelet Count 330 K/UL (150-450) Mean Platelet Volume 9.2 FL (6.5-10.1) Neutrophils (%) (Auto) 75.9 % (45.0-75.0) H Lymphocytes (%) (Auto) 14.0 % (20.0-45.0) L Monocytes (%) (Auto) 7.7 % (1.0-10.0) Eosinophils (%) (Auto) 1.7 % (0.0-3.0) Basophils (%) (Auto) 0.7 % (0.0-2.0) Activated Partial Thromboplast Time 72 SEC (23-33) H Sodium Level 139 MMOL/L (136-145) Potassium Level 4.3 MMOL/L (3.5-5.1) Chloride Level 102 MMOL/L (98-107) Carbon Dioxide Level 28 MMOL/L (21-32) Anion Gap 10 mmol/L (5-15) Blood Urea Nitrogen 32 mg/dL (7-18) H Creatinine 2.0 MG/DL (0.55-1.30) H Estimat Glomerular Filtration Rate 29.5 mL/min (>60) Glucose Level 199 MG/DL (74-106) H Calcium Level 8.4 MG/DL (8.5-10.1) L Phosphorus Level 4.6 MG/DL (2.5-4.9) Magnesium Level 1.7 MG/DL (1.8-2.4) L Total Bilirubin 0.4 MG/DL (0.2-1.0) Aspartate Amino Transf (AST/SGOT) 17 U/L (15-37) Alanine Aminotransferase (ALT/SGPT) 10 U/L (12-78) L Alkaline Phosphatase 93 U/L (46-116) C-Reactive Protein, Quantitative 4.8 mg/dL (0.00-0.90) H Pro-B-Type Natriuretic Peptide 96815 pg/mL (0-125) H Total Protein 6.8 G/DL (6.4-8.2) Albumin 2.1 G/DL (3.4-5.0) L Globulin 4.7 g/dL Albumin/Globulin Ratio 0.4 (1.0-2.7) L Marisa Hicks MD Oct 20, 2019 20:52
[2019-10-20] MEDS: Latanoprost 0.005% Opth 2.5ml Soln BOTH EYES SCH (21:49)
[2019-10-20] MEDS: Atorvastatin 20mg tab ORAL SCH (21:50)
--- NOTE | 2019-10-20 22:00 | NUR ---
NURSE NOTES: pt maintains that she does not want to turn and is in supine position, I was able to place a pillow slightly on left side. She continues to be in semi fowlers and to turn and has been lying supine/semi fowlers for some time now states she is "comfortable" at present and that she will let us know when she is ready to be turned, she also refuses pillow under heels. I educated pt that it is important to be turned and I would like to help her turn but despite education she said she is comfortable and does not want to aggravate and "cause pain by moving." I lowered the head of bed and elevated legs slightly. will continue to educate patient. She said she is rotating her bottom from side to side to relieve pressure
[2019-10-21 00:05] VITALS: BP 131/58
[2019-10-21] MEDS: Heparin 25,000u/D5W 500ml 500 ML IV SCH ×2 (01:10→13:36)
[2019-10-21] MEDS: traMADol 50mg tab ORAL PRN ×3 (01:16→17:43)
[2019-10-21 04:27] VITALS: BP 125/63
[2019-10-21 04:48] LABS: BASOPHILS % (AUTO) 1.5 % (0.0-2.0); EOSINOPHILS % (AUTO) 2.2 % (0.0-3.0); HEMATOCRIT 27.3 % (37.0-47.0); HEMOGLOBIN 8.4 G/DL (12.0-16.0); LYMPHOCYTES % (AUTO) 16.8 % (20.0-45.0); MEAN CORPUSCULAR VOLUME 89 FL (80-99); MONOCYTES % (AUTO) 9.7 % (1.0-10.0); NEUTROPHILS % (AUTO) 69.8 % (45.0-75.0); PLATELET COUNT 322 K/UL (150-450); RED BLOOD COUNT 3.06 M/UL (4.20-5.40); WHITE BLOOD COUNT 8.4 K/UL (4.8-10.8)
[2019-10-21 05:00] LABS: ANION GAP 6 mmol/L (5-15); BLOOD UREA NITROGEN 26 mg/dL (7-18); CALCIUM 8.7 MG/DL (8.5-10.1); CARBON DIOXIDE 29 MMOL/L (21-32); CHLORIDE 101 MMOL/L (98-107); CREATININE 2.1 MG/DL (0.55-1.30); POTASSIUM 4.4 MMOL/L (3.5-5.1); SODIUM 136 MMOL/L (136-145)
--- NOTE | 2019-10-21 05:36 | NUR ---
NURSE NOTES: PTT is 75 It is within therapeutic range. Continue heparin drip as running at 15 units/kg/hour 43.953 ml/hour Repeat PTT 10/21 0400 timed. orders input and carried out
[2019-10-21] MEDS: NovoLOG Insulin Flexpen SUBQ SCH ×4 (06:42→21:47)
--- NOTE | 2019-10-21 07:02 | NUR ---
HAND-OFF: Report given to RUTHANN Jo.
--- NOTE | 2019-10-21 07:30 | NUR ---
NURSE NOTES: Received report from RUTHANN Augustine. The patient is AAO x4 watching TV in bed. No signs of distress or c/o pain. Lungs clear to auscultation. Radial pulses palpable. Right forearm 22 g infusing heparin drip at 15 units/kg/hr. No redness or infiltrates observed. Anne draining to gravity, clear, jone urine. Bed alarm on, side rails x2 elevated, call light in reach, bed low and locked, fall education provided. Will continue to monitor.
[2019-10-21 08:00] VITALS: BP 151/80
[2019-10-21] MEDS: Docusate 100mg cap ORAL SCH ×4 (09:00→17:51)
[2019-10-21] MEDS: Imdur 30mg tab ORAL SCH (09:29)
[2019-10-21] MEDS: Aspirin EC 81mg tab ORAL SCH (09:29)
--- NOTE | 2019-10-21 09:32 | Diagnostic Imaging Report ---
Procedure: XRAY Chest 1v Reason for study: Shortness of breath. Comparison films: 10/14/2019. FINDINGS: A single one view chest is obtained. Vascularity is normal. The lung mckeon are clear bilaterally. There is gross cardiomegaly. No significant effusion seen. The bony thorax appear unremarkable. IMPRESSION: Cardiomegaly. No acute disease.
[2019-10-21 10:05] LABS: ALANINE AMINOTRANSFERASE 12 U/L (12-78); ALBUMIN 2.1 G/DL (3.4-5.0); ALKALINE PHOSPHATASE 89 U/L (46-116); ASPARTATE AMINO TRANSFERASE 18 U/L (15-37); BILIRUBIN,DIRECT 0.1 MG/DL (0.0-0.3); BILIRUBIN,TOTAL 0.3 MG/DL (0.2-1.0); PHOSPHORUS 5.1 MG/DL (2.5-4.9)
--- NOTE | 2019-10-21 10:36 | Nephrology Progress Note ---
Assessment/Plan Problem List: (1) Renal failure (ARF), acute on chronic (2) Diabetes mellitus (3) Morbid obesity (4) Chronic atrial fibrillation (5) History of DVT (deep vein thrombosis) (6) Anemia (7) NSTEMI (non-ST elevated myocardial infarction) (8) Sepsis (9) Pyelonephritis Assessment Renal failure, most likely acute on chronic. Sepsis, leukocytosis, fever, suspected 2019 novel coronavirus infection. Encephalopathy most likely toxic metabolic UTI/pyelonephritis Anemia Atrial fibrillation chronic, with fast ventricular rate. Diabetes mellitus Morbid obesity/limited mobility History of DVT Elevated troponin I Lactic acidosis Plan October 20: Labs are reviewed. Creatinine 2.1. White blood cells within normal range. Blood pressure is reasonably controlled. Medication reviewed and adjusted. Coreg dose increased. UA and culture ordered. October 19: Lab reviewed. Creatinine lower. Will adjust blood pressure medication. Leukocytosis resolved. October 18: No can panel drawn today. Clinically stable. Will check labs in a.m. Continue per consultants. October 17: Serum creatinine stable lowering. Continues to improve. Full code. Continue per consultants. October 16: Serum creatinine lowering. White blood cell is lowering. Clinically improving. Continue per consultants. October 15: Serum creatinine lowered to 2.6. White blood cell count is also down to 17,000. Not much to add from renal standpoint of view. Continue per cardiology and per ID. October 14: Serum creatinine 2.8. No new changes. Continue per fan balancer. Leukocytosis persists. Remains on meropenem. Continue per ID. October 13: Serum creatinine continues to lower. Troponin level also declining. Continue per cardiology management. Statins was restarted by cardiology. Continue to monitor renal parameters. October 12: Serum creatinine lowering. Troponin I is also declining. Continue per cardiology management. Will continue to follow-up renal parameters and CPK level. October 11: Statins stopped due to worsening LFTs. 1 dose of Plavix given. Imdur started. Serum creatinine stable. Continue per cardiology. Continue to monitor renal parameters and CPK. Monitor troponin I and CPK Aspirin, Coreg ,nitrate for elevated troponin Antibiotics Echocardiogram results noted Kidney ultrasound results pending Monitor urine output and renal parameters Keep the blood pressure and blood sugar in check Coumadin for DVT and atrial fibrillation IV Protonix Subjective ROS Limited/Unobtainable: No Constitutional: Reports: malaise, weakness Objective Objective Last 24 Hour Vital Signs Date Time Temp Pulse Resp B/P (MAP) Pulse Ox O2 Delivery O2 Flow Rate FiO2 10/21/19 09:31 71 151/80 10/21/19 09:29 151/80 10/21/19 09:29 71 151/80 10/21/19 08:00 100.9 71 18 151/80 (103) 96 10/21/19 08:00 82 10/21/19 04:27 97.7 66 18 125/63 (83) 98 10/21/19 04:00 79 10/21/19 00:05 96.9 74 19 131/58 (82) 94 10/20/19 23:58 65 10/20/19 21:50 87 144/69 10/20/19 21:00 Room Air Room Air 10/20/19 20:00 76 10/20/19 20:00 96.6 87 19 144/69 (94) 95 10/20/19 16:00 98.8 74 20 157/80 (105) 98 10/20/19 16:00 80 10/20/19 12:46 75 145/85 10/20/19 12:00 98.1 69 20 145/85 (105) 98 10/20/19 12:00 68 Intake and Output 10/20/19 10/21/19 19:00 07:00 Intake Total 1033.953 ml 438.810 ml Output Total 2250 ml 300 ml Balance -1216.047 ml 138.810 ml Intake Oral 990 ml IV Total 43.953 ml 438.810 ml Output Urine Total 2250 ml 300 ml Laboratory Tests 10/21/19 04:34: Phosphorus Level 5.1H, Magnesium Level 1.8, Total Bilirubin 0.3, Direct Bilirubin 0.1, Aspartate Amino Transf (AST/SGOT) 18, Alanine Aminotransferase ( ALT/SGPT) 12, Alkaline Phosphatase 89, Total Protein 6.8, Albumin 2.1L 10/21/19 04:39: White Blood Count 8.4, Red Blood Count 3.06L, Hemoglobin 8.4L, Hematocrit 27.3L , Mean Corpuscular Volume 89, Mean Corpuscular Hemoglobin 27.4, Mean Corpuscular Hemoglobin Concent 30.7L, Red Cell Distribution Width 16.0H, Platelet Count 322, Mean Platelet Volume 9.4, Neutrophils (%) (Auto) 69.8, Lymphocytes (%) (Auto) 16.8L, Monocytes (%) (Auto) 9.7, Eosinophils (%) (Auto) 2.2, Basophils (%) (Auto) 1.5, Activated Partial Thromboplast Time 75H, Sodium Level 136, Potassium Level 4.4, Chloride Level 101, Carbon Dioxide Level 29, Anion Gap 6, Blood Urea Nitrogen 26H, Creatinine 2.1H, Estimat Glomerular Filtration Rate 27.9, Glucose Level 177H, Calcium Level 8.7 Height (Feet): 5 Height (Inches): 3.00 Weight (Pounds): 323 General Appearance: no apparent distress, other - Has low-grade fever Cardiovascular: normal rate Respiratory/Chest: decreased breath sounds Abdomen: distended Pantera Wallace MD Oct 21, 2019 10:36
--- NOTE | 2019-10-21 11:29 | Pulmonology Progress Note ---
Subjective ROS Limited/Unobtainable: No Interval Events: c/o pain after the venous doppler was done Allergies: Coded Allergies: CODEINE (Verified Allergy, Unknown, 10/10/19) Objective Last 24 Hour Vital Signs Date Time Temp Pulse Resp B/P (MAP) Pulse Ox O2 Delivery O2 Flow Rate FiO2 10/21/19 09:31 71 151/80 10/21/19 09:29 151/80 10/21/19 09:29 71 151/80 10/21/19 09:00 Room Air 10/21/19 08:00 100.9 71 18 151/80 (103) 96 10/21/19 08:00 82 10/21/19 04:27 97.7 66 18 125/63 (83) 98 10/21/19 04:00 79 10/21/19 00:05 96.9 74 19 131/58 (82) 94 10/20/19 23:58 65 10/20/19 21:50 87 144/69 10/20/19 21:00 Room Air Room Air 10/20/19 20:00 76 10/20/19 20:00 96.6 87 19 144/69 (94) 95 10/20/19 16:00 98.8 74 20 157/80 (105) 98 10/20/19 16:00 80 10/20/19 12:46 75 145/85 10/20/19 12:00 98.1 69 20 145/85 (105) 98 10/20/19 12:00 68 Intake and Output 10/20/19 10/21/19 19:00 07:00 Intake Total 1033.953 ml 438.810 ml Output Total 2250 ml 300 ml Balance -1216.047 ml 138.810 ml Intake Oral 990 ml IV Total 43.953 ml 438.810 ml Output Urine Total 2250 ml 300 ml General Appearance: WD/WN HEENT: normocephalic, atraumatic Respiratory: chest wall non-tender, lungs clear Breasts: no masses Cardiovascular: normal peripheral pulses Abdomen: normal bowel sounds, soft, non tender Genitourinary: normal external genitalia Extremities: no cyanosis Skin: no lesions 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 Laboratory Tests 10/21/19 04:34: Phosphorus Level 5.1H, Magnesium Level 1.8, Total Bilirubin 0.3, Direct Bilirubin 0.1, Aspartate Amino Transf (AST/SGOT) 18, Alanine Aminotransferase ( ALT/SGPT) 12, Alkaline Phosphatase 89, Total Protein 6.8, Albumin 2.1L 10/21/19 04:39: White Blood Count 8.4, Red Blood Count 3.06L, Hemoglobin 8.4L, Hematocrit 27.3L , Mean Corpuscular Volume 89, Mean Corpuscular Hemoglobin 27.4, Mean Corpuscular Hemoglobin Concent 30.7L, Red Cell Distribution Width 16.0H, Platelet Count 322, Mean Platelet Volume 9.4, Neutrophils (%) (Auto) 69.8, Lymphocytes (%) (Auto) 16.8L, Monocytes (%) (Auto) 9.7, Eosinophils (%) (Auto) 2.2, Basophils (%) (Auto) 1.5, Activated Partial Thromboplast Time 75H, Sodium Level 136, Potassium Level 4.4, Chloride Level 101, Carbon Dioxide Level 29, Anion Gap 6, Blood Urea Nitrogen 26H, Creatinine 2.1H, Estimat Glomerular Filtration Rate 27.9, Glucose Level 177H, Calcium Level 8.7 Current Medications Medications (Trade) Dose Ordered Sig/Adria Route PRN Reason Start Time Stop Time Status Last Admin Dose Admin Acetaminophen (Tylenol) 650 mg Q4H PRN ORAL fever 10/11/19 08:30 11/09/19 08:29 10/13/19 20:22 Acetaminophen (Tylenol) 650 mg Q4H PRN RECTAL Temp >100.5 10/14/19 06:30 11/13/19 06:29 Amlodipine Besylate (Norvasc) 10 mg DAILY ORAL 10/21/19 09:00 11/20/19 08:59 10/21/19 09:31 Aspirin (Ecotrin) 81 mg DAILY ORAL 10/11/19 09:00 11/25/19 08:59 10/21/19 09:29 Atorvastatin Calcium (Lipitor) 40 mg BEDTIME ORAL 10/12/19 21:00 01/10/20 20:59 10/20/19 21:50 Carvedilol (Coreg) 6.25 mg EVERY 12 HOURS ORAL 10/21/19 21:00 11/20/19 20:59 Ceftriaxone Sodium 1 gm/ Dextrose 55 ml @ 110 mls/hr Q24H IVPB 10/17/19 16:00 10/24/19 15:59 10/20/19 16:00 Clonidine HCl (Catapres Tab) 0.1 mg Q4H PRN ORAL Blood pressure over 160 systol 10/11/19 08:30 01/08/20 08:29 10/18/19 06:26 Dextrose (Dextrose 50%) 25 ml Q30M PRN IV Hypoglycemia 10/11/19 08:30 01/08/20 11:29 Dextrose (Dextrose 50%) 50 ml Q30M PRN IV Hypoglycemia 10/11/19 08:30 01/08/20 11:29 Docusate Sodium (Colace) 100 mg THREE TIMES A DAY ORAL 10/11/19 09:00 11/09/19 17:59 10/13/19 17:36 Gabapentin (Neurontin) 200 mg THREE TIMES A DAY ORAL 10/16/19 13:00 11/09/19 12:59 10/21/19 09:30 Heparin Sodium/ Dextrose 500 ml @ 43.953 mls/ hr ADJUST PER PROTOCOL IV 10/20/19 07:30 11/16/19 03:59 10/21/19 01:10 Insulin Aspart (NovoLOG) BEFORE MEALS AND HS SUBQ 10/11/19 11:30 01/08/20 11:29 10/21/19 06:42 Isosorbide Mononitrate (Imdur) 30 mg DAILY ORAL 10/13/19 09:00 11/12/19 08:59 10/21/19 09:29 Latanoprost (Xalatan) 1 drop BEDTIME BOTH EYES 10/17/19 21:00 11/16/19 20:59 10/20/19 21:49 Morphine Sulfate (Morphine Sulfate) 2 mg Q4H PRN IVP For Pain 10/20/19 01:30 10/27/19 01:29 Nitroglycerin (Ntg) 0.4 mg Q5M PRN SL Prn Chest Pain 10/11/19 08:30 11/09/19 11:29 Ondansetron HCl (Zofran) 4 mg Q6H PRN IVP Nausea & Vomiting 10/11/19 08:30 11/09/19 08:29 Pantoprazole (Protonix) 40 mg EVERY 12 HOURS ORAL 10/14/19 21:00 7/8/20 20:59 10/21/19 09:30 Polyethylene Glycol (Miralax) 17 gm DAILYPRN PRN ORAL Constipation 10/11/19 08:30 11/09/19 08:29 Tramadol HCl (Ultram) 50 mg Q6H PRN ORAL For Pain 10/20/19 01:30 10/27/19 01:29 10/21/19 09:57 Assessment/Plan Problems: (1) Sepsis (2) NSTEMI (non-ST elevated myocardial infarction) (3) Renal failure (ARF), acute on chronic (4) Pyelonephritis (5) Atrial fibrillation with rapid ventricular response (6) Chronic atrial fibrillation (7) Limited mobility (8) Anemia (9) Diabetes mellitus (10) Morbid obesity Assessment/Plan third BC from are negative now WBC coming down asymptomatic electrolytes supplement iv abx by ID, Meropenem creatinine is stable now, renal function improving asa, plavix and b idalia cardio suggest "Noninvasive w/u vs cardiac cath when stable from ID standpoint, to evaluate CAD," sliding scale diabetic diet renal studies dvt prophylaxis. Bandar Brownlee MD Oct 21, 2019 11:29
[2019-10-21 11:49] LABS: APPEARANCE,URINE CLEAR; BILIRUBIN, URINE NEGATIVE (NEGATIVE); COLOR,URINE PALE YELLOW; GLUCOSE, URINE (UA) NEGATIVE (NEGATIVE); KETONES,URINE NEGATIVE (NEGATIVE); LEUKOCYTE ESTERASE ,URINE 3+ (NEGATIVE); NITRITE,URINE NEGATIVE (NEGATIVE); PH,URINE 6.5 (4.5-8.0); PROTEIN,URINE 1+ (NEGATIVE); UROBILINOGEN,URINE NORMAL MG/DL (0.0-1.0)
[2019-10-21 12:00] VITALS: BP 128/68
--- NOTE | 2019-10-21 12:04 | NUR ---
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 * Altered nutrition related lab values R/T diabetes and cardiac hx as evidenced by elev BGs w/ POC glu (238 232 222 208- now improved), elev BNP (10222), elev creat (2.8-> 2.1). CURRENT DIET:[facility] MED PO DIET RECOMMENDATIONS: CCHO LOW, CARDIAC/ texture as tolerated ADDITIONAL RECOMMENDATIONS: * Per SNF record: HT=65" [id number] (05/27/19) -> obtain calibrated bedscale wt * [employer]GER eval for appropriate texture: pt on finely chopped texture diet on regular texture OBSTETRICS TECH * Monitor PO intake- decreasing and variable PO intake at this time * Monitor BGs, need for additional hypoglycemics * Wound care: add PANTERA BID, f/up w/ WC eval
--- NOTE | 2019-10-21 13:55 | NUR ---
NURSE NOTES: Patient c/o L groin pain 4/10. Pt. states pain started after venous duplex was performed and has slightly improved since that day; however, pain remains at a 4/10 that is unrelieved by Tramadol, repositioning, or distraction. Left lower extremity is warm and left foot is more edematous than right. Left message for Dr. Brownlee, awaiting response.
--- NOTE | 2019-10-21 14:13 | NUR ---
CASE MANAGEMENT:REVIEW 10/21/19 SI: PNA. UTI. AMI. AFIB COVID NEGATIVE X2. AC/CHR RENAL INSUFF 101.1 80 19 128/68 96% ON RA H/H-8.4/27.3 IS: HEPARIN GTT IV ROCEPHIN Q24 IMDUR PO QD ASA PO QD COREG PO Q12 PROTONIX Q12 NEURONTIN PO TID : TELEMETRY STATUS DCP: FROM [facility] PLAN: CARDIAC CATH ONCE CLEARED BY ID URINE CX
[2019-10-21 16:00] VITALS: BP 146/76
[2019-10-21] MEDS: cefTRIAXone 1 GM in D5W 55 ML IVPB SCH (16:21)
--- NOTE | 2019-10-21 17:52 | NUR ---
NURSE NOTES: Per Dr. Brownlee, give pt. morphine IV. MD aware that pt. has order for morphine and is refusing to take it. No further orders at this time. Patient continues to report pain 4/10. Tramadol given as ordered. Will continue to monitor.
--- NOTE | 2019-10-21 18:13 | Internal Med Progress Note ---
Subjective Date of Service: Oct 21, 2019 Physician Name Johny Blankenship Attending Physician Aleksandr Vega MD Current Medications Medications (Trade) Dose Ordered Sig/Adria Route PRN Reason Start Time Stop Time Status Last Admin Dose Admin Acetaminophen (Tylenol) 650 mg Q4H PRN ORAL fever 10/11/19 08:30 11/09/19 08:29 10/13/19 20:22 Acetaminophen (Tylenol) 650 mg Q4H PRN RECTAL Temp >100.5 10/14/19 06:30 11/13/19 06:29 Amlodipine Besylate (Norvasc) 10 mg DAILY ORAL 10/21/19 09:00 11/20/19 08:59 10/21/19 09:31 Aspirin (Ecotrin) 81 mg DAILY ORAL 10/11/19 09:00 11/25/19 08:59 10/21/19 09:29 Atorvastatin Calcium (Lipitor) 40 mg BEDTIME ORAL 10/12/19 21:00 01/10/20 20:59 10/20/19 21:50 Carvedilol (Coreg) 6.25 mg EVERY 12 HOURS ORAL 10/21/19 21:00 11/20/19 20:59 Ceftriaxone Sodium 1 gm/ Dextrose 55 ml @ 110 mls/hr Q24H IVPB 10/17/19 16:00 10/31/19 23:59 10/21/19 16:21 Clonidine HCl (Catapres Tab) 0.1 mg Q4H PRN ORAL Blood pressure over 160 systol 10/11/19 08:30 01/08/20 08:29 10/18/19 06:26 Dextrose (Dextrose 50%) 25 ml Q30M PRN IV Hypoglycemia 10/11/19 08:30 01/08/20 11:29 Dextrose (Dextrose 50%) 50 ml Q30M PRN IV Hypoglycemia 10/11/19 08:30 01/08/20 11:29 Docusate Sodium (Colace) 100 mg THREE TIMES A DAY ORAL 10/11/19 09:00 11/09/19 17:59 10/13/19 17:36 Gabapentin (Neurontin) 200 mg THREE TIMES A DAY ORAL 10/16/19 13:00 11/09/19 12:59 10/21/19 17:42 Heparin Sodium/ Dextrose 500 ml @ 43.953 mls/ hr ADJUST PER PROTOCOL IV 10/20/19 07:30 11/16/19 03:59 10/21/19 13:36 Insulin Aspart (NovoLOG) BEFORE MEALS AND HS SUBQ 10/11/19 11:30 01/08/20 11:29 10/21/19 16:21 Isosorbide Mononitrate (Imdur) 30 mg DAILY ORAL 10/13/19 09:00 11/12/19 08:59 10/21/19 09:29 Latanoprost (Xalatan) 1 drop BEDTIME BOTH EYES 10/17/19 21:00 11/16/19 20:59 10/20/19 21:49 Morphine Sulfate (Morphine Sulfate) 2 mg Q4H PRN IVP For Pain 10/20/19 01:30 10/27/19 01:29 Nitroglycerin (Ntg) 0.4 mg Q5M PRN SL Prn Chest Pain 10/11/19 08:30 11/09/19 11:29 Ondansetron HCl (Zofran) 4 mg Q6H PRN IVP Nausea & Vomiting 10/11/19 08:30 11/09/19 08:29 Pantoprazole (Protonix) 40 mg EVERY 12 HOURS ORAL 10/14/19 21:00 11/13/19 20:59 10/21/19 09:30 Polyethylene Glycol (Miralax) 17 gm DAILYPRN PRN ORAL Constipation 10/11/19 08:30 11/09/19 08:29 Tramadol HCl (Ultram) 50 mg Q6H PRN ORAL For Pain 10/20/19 01:30 10/27/19 01:29 10/21/19 17:43 Allergies: Coded Allergies: CODEINE (Verified Allergy, Unknown, 10/10/19) ROS Limited/Unobtainable: No Constitutional: Reports: no symptoms HEENT: Reports: no symptoms Cardiovascular: Reports: no symptoms Respiratory: Reports: no symptoms Gastrointestinal/Abdominal: Reports: no symptoms Genitourinary: Reports: no symptoms Neurologic/Psychiatric: Reports: no symptoms Subjective 74 YO F admitted with altered mental status and fever. Now UTI and sepsis. Cover for Int Pablo-Dr Vega. Refused V/Q scan Objective Last Vital Signs Date Time Temp Pulse Resp B/P (MAP) Pulse Ox O2 Delivery O2 Flow Rate FiO2 10/21/19 16:00 100.0 81 18 146/76 (99) 98 10/21/19 09:00 Room Air 10/20/19 07:47 21 10/14/19 21:00 8.0 Laboratory Tests Test 10/21/19 04:34 10/21/19 04:39 10/21/19 11:00 Phosphorus Level 5.1 MG/DL (2.5-4.9) H Magnesium Level 1.8 MG/DL (1.8-2.4) Total Bilirubin 0.3 MG/DL (0.2-1.0) Direct Bilirubin 0.1 MG/DL (0.0-0.3) Aspartate Amino Transf (AST/SGOT) 18 U/L (15-37) Alanine Aminotransferase (ALT/SGPT) 12 U/L (12-78) Alkaline Phosphatase 89 U/L (46-116) Total Protein 6.8 G/DL (6.4-8.2) Albumin 2.1 G/DL (3.4-5.0) L White Blood Count 8.4 K/UL (4.8-10.8) Red Blood Count 3.06 M/UL (4.20-5.40) L Hemoglobin 8.4 G/DL (12.0-16.0) L Hematocrit 27.3 % (37.0-47.0) L Mean Corpuscular Volume 89 FL (80-99) Mean Corpuscular Hemoglobin 27.4 PG (27.0-31.0) Mean Corpuscular Hemoglobin Concent 30.7 G/DL (32.0-36.0) L Red Cell Distribution Width 16.0 % (11.6-14.8) H Platelet Count 322 K/UL (150-450) Mean Platelet Volume 9.4 FL (6.5-10.1) Neutrophils (%) (Auto) 69.8 % (45.0-75.0) Lymphocytes (%) (Auto) 16.8 % (20.0-45.0) L Monocytes (%) (Auto) 9.7 % (1.0-10.0) Eosinophils (%) (Auto) 2.2 % (0.0-3.0) Basophils (%) (Auto) 1.5 % (0.0-2.0) Activated Partial Thromboplast Time 75 SEC (23-33) H Sodium Level 136 MMOL/L (136-145) Potassium Level 4.4 MMOL/L (3.5-5.1) Chloride Level 101 MMOL/L (98-107) Carbon Dioxide Level 29 MMOL/L (21-32) Anion Gap 6 mmol/L (5-15) Blood Urea Nitrogen 26 mg/dL (7-18) H Creatinine 2.1 MG/DL (0.55-1.30) H Estimat Glomerular Filtration Rate 27.9 mL/min (>60) Glucose Level 177 MG/DL (74-106) H Calcium Level 8.7 MG/DL (8.5-10.1) Urine Color Pale yellow Urine Appearance Clear Urine pH 6.5 (4.5-8.0) Urine Specific [place] 1.010 (1.005-1.035) Urine Protein 1+ (NEGATIVE) H Urine Glucose (UA) Negative (NEGATIVE) Urine Ketones Negative (NEGATIVE) Urine Blood 2+ (NEGATIVE) H Urine Nitrite Negative (NEGATIVE) Urine Bilirubin Negative (NEGATIVE) Urine Urobilinogen Normal MG/DL (0.0-1.0) Urine Leukocyte Esterase 3+ (NEGATIVE) H Urine RBC 2-4 /HPF (0 - 2) H Urine WBC 5-10 /HPF (0 - 2) H Urine Squamous Epithelial Cells Few /LPF (NONE/OCC) Urine Bacteria Few /HPF (NONE) Intake and Output 10/20/19 10/21/19 19:00 07:00 Intake Total 1033.953 ml 438.810 ml Output Total 2250 ml 300 ml Balance -1216.047 ml 138.810 ml Intake Oral 990 ml IV Total 43.953 ml 438.810 ml Output Urine Total 2250 ml 300 ml Objective PHYSICAL EXAMINATION: GENERAL: Patient is well-developed, well-nourished, slightly obese female, in no apparent distress. HEENT: Eyes, pupils are equal and responsive to light and accommodation. Extraocular movements are intact. NECK: Supple. No lymphadenopathy. CHEST: Lungs are clear to auscultation bilaterally without wheezes or rales. CARDIOVASCULAR: Regular rate. S1, S2 are normal without murmurs, rubs, or gallops. ABDOMEN: Soft, nontender, nondistended. Positive bowel sounds. No evidence of hepatosplenomegaly. Currently no rebound or guarding noted. EXTREMITIES: Negative for clubbing, cyanosis, or edema. RECTAL/GENITAL: Not performed. NEUROLOGIC: Cranial nerves II to XII grossly intact without focal deficits Assessment/Plan Assessment/Plan ASSESSMENT: This is a 74-year-old female. 1. Sepsis=E. Coli 2. UTI=E. Coli 3. Altered mental status. 4. Leukocytosis. 5. Elevated troponin. 6. Atrial fibrillation. 7. Diabetes type 2. 8. Hypertension. 9. Hyperthyroidism. 10. Coronary artery disease. 11. Renal failure. 12. Hypercholesterolemia. 13. Chronic lymphedema of the bilateral lower extremities. 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 Urinary Tract infection-E. Coli ABX=ceftriaxone, S/P meropenem. Infectious Disease=Dr. Mays. We will follow recommendations of Infectious Disease. 2. Sepsis=E. Coli Await culture and sensitivity result. Continue meropenem per ID. 3. Altered mental status. Resolved 4. Leukocytosis. Resolved 5. Elevated troponin. A Cardiology consultation has been obtained with Dr. Arun Barker. 6. Atrial fibrillation. Continue Coumadin as above. A Cardiology consultation has been obtained with Dr. Arun Barker. 7. Diabetes type 2. NovoLog sliding scale has been instituted. 8. Hypertension. Patient is currently hypotensive. Hold amlodipine as above. 9. Hyperthyroidism. Continue methimazole as above. 10. Coronary artery disease. Patient has elevated troponin. A Cardiology consultation has been obtained with Dr. Arun Barker. 11. Renal failure. A Nephrology consultation has been obtained with Dr. Pantera Wallace. 12. Hypercholesterolemia. Continue simvastatin as above. 13. Chronic lymphedema of bilateral lower extremities. 14. Will need CT abdomen/pelvis to R/O abscess-see ID note. 15. Await cardiac cath-see cardiology note 16. Refused V/Q scan to R/O pulmonary embolism; on heparin Johny Her MD Oct 21, 2019 18:13
--- NOTE | 2019-10-21 18:41 | NUR ---
NURSE NOTES: Patient refusing turning throughout shift as well as colace. Education provided. Will continue to monitor.
--- NOTE | 2019-10-21 18:43 | NUR ---
NURSE NOTES: Updated Dr. Bakrer about c/o L groin pain, left lower extremity warmth, and pedal edema left greater than right. No relief after Tramadol. Pain now 5/10. No new orders at this time.
--- NOTE | 2019-10-21 18:59 | Cardiology Progress Note ---
Assessment/Plan Assessment/Plan 1. Permanent atrial fibrillation, on anticoagulation. 2. Toxic-metabolic encephalopathy. 3. Urinary tract infection, question pyelonephritis. 4. Diabetes mellitus. 5. Hypertension history. 6. Morbid obesity. 7. Myocardial infarction. 8. Acute on chronic renal insufficiency. 9. Coagulopathy secondary to Coumadin. 10. Bacteremia gnr 11. Iron def 12 RV hypokinesis and enlargment covid neg isolation removed but she just spiked a temp trop may be related to poulm embolism or cad some of the echo images the rv hypo and somewhat dilated venous duplex neg buit tech difficutl stduye for now remain on heparin for afib adn possible PE bp seems high will add low dose norvasc repeat trop tapering down wbc down but now with fever may be different afebrile tele reviewed afib refused v/q Subjective Subjective per rn c/o L groin pain, left lower extremity warmth, and pedal edema left greater than right.. Objective Last 24 Hour Vital Signs Date Time Temp Pulse Resp B/P (MAP) Pulse Ox O2 Delivery O2 Flow Rate FiO2 10/21/19 16:00 100.0 81 18 146/76 (99) 98 10/21/19 16:00 71 10/21/19 12:31 99.0 10/21/19 12:00 67 10/21/19 12:00 101.1 80 19 128/68 (88) 96 10/21/19 09:31 71 151/80 10/21/19 09:29 151/80 10/21/19 09:29 71 151/80 10/21/19 09:00 Room Air 10/21/19 08:00 100.9 71 18 151/80 (103) 96 10/21/19 08:00 82 10/21/19 04:27 97.7 66 18 125/63 (83) 98 10/21/19 04:00 79 10/21/19 00:05 96.9 74 19 131/58 (82) 94 10/20/19 23:58 65 10/20/19 21:50 87 144/69 10/20/19 21:00 Room Air Room Air 10/20/19 20:00 76 10/20/19 20:00 96.6 87 19 144/69 (94) 95 Intake and Output 6/14/20 6/15/20 19:00 07:00 Intake Total 1033.953 ml 438.810 ml Output Total 2250 ml 300 ml Balance -1216.047 ml 138.810 ml Intake Oral 990 ml IV Total 43.953 ml 438.810 ml Output Urine Total 2250 ml 300 ml Laboratory Tests Test 10/21/19 04:34 10/21/19 04:39 10/21/19 11:00 Phosphorus Level 5.1 MG/DL (2.5-4.9) H Magnesium Level 1.8 MG/DL (1.8-2.4) Total Bilirubin 0.3 MG/DL (0.2-1.0) Direct Bilirubin 0.1 MG/DL (0.0-0.3) Aspartate Amino Transf (AST/SGOT) 18 U/L (15-37) Alanine Aminotransferase (ALT/SGPT) 12 U/L (12-78) Alkaline Phosphatase 89 U/L (46-116) Total Protein 6.8 G/DL (6.4-8.2) Albumin 2.1 G/DL (3.4-5.0) L White Blood Count 8.4 K/UL (4.8-10.8) Red Blood Count 3.06 M/UL (4.20-5.40) L Hemoglobin 8.4 G/DL (12.0-16.0) L Hematocrit 27.3 % (37.0-47.0) L Mean Corpuscular Volume 89 FL (80-99) Mean Corpuscular Hemoglobin 27.4 PG (27.0-31.0) Mean Corpuscular Hemoglobin Concent 30.7 G/DL (32.0-36.0) L Red Cell Distribution Width 16.0 % (11.6-14.8) H Platelet Count 322 K/UL (150-450) Mean Platelet Volume 9.4 FL (6.5-10.1) Neutrophils (%) (Auto) 69.8 % (45.0-75.0) Lymphocytes (%) (Auto) 16.8 % (20.0-45.0) L Monocytes (%) (Auto) 9.7 % (1.0-10.0) Eosinophils (%) (Auto) 2.2 % (0.0-3.0) Basophils (%) (Auto) 1.5 % (0.0-2.0) Activated Partial Thromboplast Time 75 SEC (23-33) H Sodium Level 136 MMOL/L (136-145) Potassium Level 4.4 MMOL/L (3.5-5.1) Chloride Level 101 MMOL/L (98-107) Carbon Dioxide Level 29 MMOL/L (21-32) Anion Gap 6 mmol/L (5-15) Blood Urea Nitrogen 26 mg/dL (7-18) H Creatinine 2.1 MG/DL (0.55-1.30) H Estimat Glomerular Filtration Rate 27.9 mL/min (>60) Glucose Level 177 MG/DL (74-106) H Calcium Level 8.7 MG/DL (8.5-10.1) Urine Color Pale yellow Urine Appearance Clear Urine pH 6.5 (4.5-8.0) Urine Specific [place] 1.010 (1.005-1.035) Urine Protein 1+ (NEGATIVE) H Urine Glucose (UA) Negative (NEGATIVE) Urine Ketones Negative (NEGATIVE) Urine Blood 2+ (NEGATIVE) H Urine Nitrite Negative (NEGATIVE) Urine Bilirubin Negative (NEGATIVE) Urine Urobilinogen Normal MG/DL (0.0-1.0) Urine Leukocyte Esterase 3+ (NEGATIVE) H Urine RBC 2-4 /HPF (0 - 2) H Urine WBC 5-10 /HPF (0 - 2) H Urine Squamous Epithelial Cells Few /LPF (NONE/OCC) Urine Bacteria Few /HPF (NONE) Arun Barker MD Oct 21, 2019 18:59
--- NOTE | 2019-10-21 19:16 | NUR ---
NURSE NOTES: Reported to RUTHANN Garcia.
--- NOTE | 2019-10-21 19:26 | Infectious Diseases Prog Note ---
Assessment/Plan Assessment/Plan Assessment: Severe Sepsis Probable PNA- COVID neg x2- sp VEnturi mask 8L- now at RA -10/20 CXR: Cardiomegaly. No acute disease. -10/13 CXR: Mild vascular congestion. Probable small left pleural effusion. -10/10 SARS-COV2 PCR neg -10/09 CXR: Mild interstitial congestion. Cannot rule out small left pleural effusion SARS-COV2 PCR neg E.coli UTI c/w high grade bacteremia- -10/20 u/a wbc 5-10, nit neg, leuk +3; ucx p -u/a wbc tnct, nit neg, leuk +3; ucx >100k E.coli (R Levauin; otherwise S) -10/09 Bcx / E.coli (R levaquin; otherwise S); 10/10 Bcx 1/4 E.coli; 10/13, BCx Neg x4 Fever; recurrent Leukocytosis; SP -10/17 v. duplex BLE: limited study, No DVT Acute encephalopathy; SP LG, worsened, now improving -renal US: Negative for hydronephrosis. Possible nonobstructive left lower pole renal calculi. Incidental finding of bilateral renal parapelvic cysts. morbid obesity HTN Dm2 hx of UTI Afib on coumadin [place] resident ([facility] [place]) Plan: Ceftriaxone #5 (abx d #04/20) for E.coli bacteremia -10/16 SP Meropenem #7 -10/13 SP IV Vancomycin #5 -10/10 SP cefepime #2 -10/09 SP Meropenem x1 -f/u cx -monitor CBC/CMP, temperatures -COVID19 neg x2 -repeat Bcx x2 -CT c/abd/p wo given recurrent fevers Thank you for consulting [facility]. Will continue to follow along with you. Discussed with RN. Subjective Allergies: Coded Allergies: CODEINE (Verified Allergy, Unknown, 10/10/19) Subjective Tm 101.1 at no leukcoytosis Objective Vital Signs Last 24 Hour Vital Signs Date Time Temp Pulse Resp B/P (MAP) Pulse Ox O2 Delivery O2 Flow Rate FiO2 10/21/19 16:00 100.0 81 18 146/76 (99) 98 10/21/19 16:00 71 10/21/19 12:31 99.0 10/21/19 12:00 67 10/21/19 12:00 101.1 80 19 128/68 (88) 96 10/21/19 09:31 71 151/80 10/21/19 09:29 151/80 10/21/19 09:29 71 151/80 10/21/19 09:00 Room Air 10/21/19 08:00 100.9 71 18 151/80 (103) 96 10/21/19 08:00 82 10/21/19 04:27 97.7 66 18 125/63 (83) 98 10/21/19 04:00 79 10/21/19 00:05 96.9 74 19 131/58 (82) 94 10/20/19 23:58 65 10/20/19 21:50 87 144/69 10/20/19 21:00 Room Air Room Air 10/20/19 20:00 76 10/20/19 20:00 96.6 87 19 144/69 (94) 95 Height (Feet): 5 Height (Inches): 3.00 Weight (Pounds): 323 Objective GENERAL: Patient is well-developed, well-nourished, slightly obese female, in no apparent distress. HEENT: Eyes, pupils are equal and responsive to light and accommodation. Extraocular movements are intact. NECK: Supple. No lymphadenopathy. CHEST: Lungs are clear to auscultation bilaterally without wheezes or rales. CARDIOVASCULAR: Regular rate. S1, S2 are normal without murmurs, rubs, or gallops. ABDOMEN: Soft, nontender, nondistended. Positive bowel sounds. No evidence of hepatosplenomegaly. Currently no rebound or guarding noted. EXTREMITIES: Negative for clubbing, cyanosis, or edema. Laboratory Tests Test 10/21/19 04:34 10/21/19 04:39 10/21/19 11:00 Phosphorus Level 5.1 MG/DL (2.5-4.9) H Magnesium Level 1.8 MG/DL (1.8-2.4) Total Bilirubin 0.3 MG/DL (0.2-1.0) Direct Bilirubin 0.1 MG/DL (0.0-0.3) Aspartate Amino Transf (AST/SGOT) 18 U/L (15-37) Alanine Aminotransferase (ALT/SGPT) 12 U/L (12-78) Alkaline Phosphatase 89 U/L (46-116) Total Protein 6.8 G/DL (6.4-8.2) Albumin 2.1 G/DL (3.4-5.0) L White Blood Count 8.4 K/UL (4.8-10.8) Red Blood Count 3.06 M/UL (4.20-5.40) L Hemoglobin 8.4 G/DL (12.0-16.0) L Hematocrit 27.3 % (37.0-47.0) L Mean Corpuscular Volume 89 FL (80-99) Mean Corpuscular Hemoglobin 27.4 PG (27.0-31.0) Mean Corpuscular Hemoglobin Concent 30.7 G/DL (32.0-36.0) L Red Cell Distribution Width 16.0 % (11.6-14.8) H Platelet Count 322 K/UL (150-450) Mean Platelet Volume 9.4 FL (6.5-10.1) Neutrophils (%) (Auto) 69.8 % (45.0-75.0) Lymphocytes (%) (Auto) 16.8 % (20.0-45.0) L Monocytes (%) (Auto) 9.7 % (1.0-10.0) Eosinophils (%) (Auto) 2.2 % (0.0-3.0) Basophils (%) (Auto) 1.5 % (0.0-2.0) Activated Partial Thromboplast Time 75 SEC (23-33) H Sodium Level 136 MMOL/L (136-145) Potassium Level 4.4 MMOL/L (3.5-5.1) Chloride Level 101 MMOL/L (98-107) Carbon Dioxide Level 29 MMOL/L (21-32) Anion Gap 6 mmol/L (5-15) Blood Urea Nitrogen 26 mg/dL (7-18) H Creatinine 2.1 MG/DL (0.55-1.30) H Estimat Glomerular Filtration Rate 27.9 mL/min (>60) Glucose Level 177 MG/DL (74-106) H Calcium Level 8.7 MG/DL (8.5-10.1) Urine Color Pale yellow Urine Appearance Clear Urine pH 6.5 (4.5-8.0) Urine Specific [place] 1.010 (1.005-1.035) Urine Protein 1+ (NEGATIVE) H Urine Glucose (UA) Negative (NEGATIVE) Urine Ketones Negative (NEGATIVE) Urine Blood 2+ (NEGATIVE) H Urine Nitrite Negative (NEGATIVE) Urine Bilirubin Negative (NEGATIVE) Urine Urobilinogen Normal MG/DL (0.0-1.0) Urine Leukocyte Esterase 3+ (NEGATIVE) H Urine RBC 2-4 /HPF (0 - 2) H Urine WBC 5-10 /HPF (0 - 2) H Urine Squamous Epithelial Cells Few /LPF (NONE/OCC) Urine Bacteria Few /HPF (NONE) Current Medications Medications (Trade) Dose Ordered Sig/Adria Route PRN Reason Start Time Stop Time Status Last Admin Dose Admin Acetaminophen (Tylenol) 650 mg Q4H PRN ORAL fever 10/11/19 08:30 11/09/19 08:29 10/13/19 20:22 Acetaminophen (Tylenol) 650 mg Q4H PRN RECTAL Temp >100.5 10/14/19 06:30 11/13/19 06:29 Amlodipine Besylate (Norvasc) 10 mg DAILY ORAL 10/21/19 09:00 11/20/19 08:59 10/21/19 09:31 Aspirin (Ecotrin) 81 mg DAILY ORAL 10/11/19 09:00 11/25/19 08:59 10/21/19 09:29 Atorvastatin Calcium (Lipitor) 40 mg BEDTIME ORAL 10/12/19 21:00 01/10/20 20:59 10/20/19 21:50 Carvedilol (Coreg) 6.25 mg EVERY 12 HOURS ORAL 10/21/19 21:00 11/20/19 20:59 Ceftriaxone Sodium 1 gm/ Dextrose 55 ml @ 110 mls/hr Q24H IVPB 10/17/19 16:00 10/31/19 23:59 10/21/19 16:21 Clonidine HCl (Catapres Tab) 0.1 mg Q4H PRN ORAL Blood pressure over 160 systol 10/11/19 08:30 01/08/20 08:29 10/18/19 06:26 Dextrose (Dextrose 50%) 25 ml Q30M PRN IV Hypoglycemia 10/11/19 08:30 01/08/20 11:29 Dextrose (Dextrose 50%) 50 ml Q30M PRN IV Hypoglycemia 10/11/19 08:30 01/08/20 11:29 Docusate Sodium (Colace) 100 mg THREE TIMES A DAY ORAL 10/11/19 09:00 11/09/19 17:59 10/13/19 17:36 Gabapentin (Neurontin) 200 mg THREE TIMES A DAY ORAL 10/16/19 13:00 11/09/19 12:59 10/21/19 17:42 Heparin Sodium/ Dextrose 500 ml @ 43.953 mls/ hr ADJUST PER PROTOCOL IV 10/20/19 07:30 11/16/19 03:59 10/21/19 13:36 Insulin Aspart (NovoLOG) BEFORE MEALS AND HS SUBQ 10/11/19 11:30 01/08/20 11:29 10/21/19 16:21 Isosorbide Mononitrate (Imdur) 30 mg DAILY ORAL 10/13/19 09:00 11/12/19 08:59 10/21/19 09:29 Latanoprost (Xalatan) 1 drop BEDTIME BOTH EYES 10/17/19 21:00 11/16/19 20:59 10/20/19 21:49 Morphine Sulfate (Morphine Sulfate) 2 mg Q4H PRN IVP For Pain 10/20/19 01:30 10/27/19 01:29 Nitroglycerin (Ntg) 0.4 mg Q5M PRN SL Prn Chest Pain 10/11/19 08:30 11/09/19 11:29 Ondansetron HCl (Zofran) 4 mg Q6H PRN IVP Nausea & Vomiting 10/11/19 08:30 11/09/19 08:29 Pantoprazole (Protonix) 40 mg EVERY 12 HOURS ORAL 10/14/19 21:00 11/13/19 20:59 10/21/19 09:30 Polyethylene Glycol (Miralax) 17 gm DAILYPRN PRN ORAL Constipation 10/11/19 08:30 11/09/19 08:29 Tramadol HCl (Ultram) 50 mg Q6H PRN ORAL For Pain 10/20/19 01:30 10/27/19 01:29 10/21/19 17:43 Hannah Mays M.D. Oct 21, 2019 19:26
--- NOTE | 2019-10-21 19:40 | NUR ---
NURSE NOTES: Received patient report from RUTHANN Nielsen. Patient is A/O x 4. In no acute distress respirations even and unlabored on room air. Patient's IV is patent, asymptomatic. Iv is on right forearm 22 g running Heparin drip at 15 ml/kg/hr. No rate chage. PTT will be drawn at 10/22/19 at 0400. No signs of bleeding. Anne catheter secured to leg, patent and draining. Bed is in the lowest position, locked, side rails x3, call light within reach. Will continue plan of care. Patient educated about turning and repositioning. .
[2019-10-21 20:00] VITALS: BP 120/61
[2019-10-21] MEDS: Atorvastatin 20mg tab ORAL SCH (21:40)
[2019-10-21] MEDS: Carvedilol 6.25mg Tab ORAL SCH (21:40)
[2019-10-21] MEDS: Latanoprost 0.005% Opth 2.5ml Soln BOTH EYES SCH (21:44)
--- NOTE | 2019-10-22 00:15 | NUR ---
NURSE NOTES: Temperature was 100.6. PRN tylenol given. Cooling measures done. Rechecked temperature after 30mins and was 99.3. Dr. Mays input orders for patient. Blood culture was drawn. Patient was slightly febrile during day shift.
[2019-10-22] MEDS: Heparin 25,000u/D5W 500ml 500 ML IV SCH ×2 (00:52→11:46)
[2019-10-22 04:00] VITALS: BP 130/66
[2019-10-22 04:39] LABS: BASOPHILS % (AUTO) 2.2 % (0.0-2.0); EOSINOPHILS % (AUTO) 3.1 % (0.0-3.0); HEMATOCRIT 27.1 % (37.0-47.0); HEMOGLOBIN 8.2 G/DL (12.0-16.0); LYMPHOCYTES % (AUTO) 20.9 % (20.0-45.0); MEAN CORPUSCULAR VOLUME 90 FL (80-99); MONOCYTES % (AUTO) 11.3 % (1.0-10.0); NEUTROPHILS % (AUTO) 62.6 % (45.0-75.0); PLATELET COUNT 331 K/UL (150-450); RED BLOOD COUNT 3.03 M/UL (4.20-5.40); RED CELL DISTRIBUTION WIDTH 16.1 % (11.6-14.8); WHITE BLOOD COUNT 6.8 K/UL (4.8-10.8)
[2019-10-22 05:28] LABS: ANION GAP 7 mmol/L (5-15); BLOOD UREA NITROGEN 25 mg/dL (7-18); CALCIUM 8.9 MG/DL (8.5-10.1); CARBON DIOXIDE 28 MMOL/L (21-32); CHLORIDE 101 MMOL/L (98-107); CREATININE 2.1 MG/DL (0.55-1.30); POTASSIUM 4.4 MMOL/L (3.5-5.1); SODIUM 136 MMOL/L (136-145)
[2019-10-22] MEDS: NovoLOG Insulin Flexpen SUBQ SCH ×4 (06:30→20:33)
--- NOTE | 2019-10-22 07:31 | NUR ---
NURSE NOTES: Received report from RUTHANN Garcia. Patient is AAO x4 in bed watching TV. No signs of distress. Pt. c/o pain to L groin area, unchanged from yesterday, refused to reposition. BP 142/88, HR 83. Breathing is regular and unlabored. R forearm IV infusing heparin at 15 units/kg/hr. Anne draining clear, jone urine to gravity. Pt. is NPO for CT CAP w/ CON this AM. Plan of the day discussed with pt. Bed alarm on, call light in reach, side rail x3 raised, fall education provided. Will continue to monitor.
[2019-10-22 08:00] VITALS: BP 137/61
--- NOTE | 2019-10-22 08:30 | NUR ---
NURSE NOTES: EKG tracing complete and placed in chart.
[2019-10-22] MEDS: Imdur 30mg tab ORAL SCH (09:00)
[2019-10-22] MEDS: Aspirin EC 81mg tab ORAL SCH (09:00)
[2019-10-22] MEDS: Carvedilol 6.25mg Tab ORAL SCH ×2 (09:00→20:25)
[2019-10-22] MEDS: Docusate 100mg cap ORAL SCH ×3 (09:00→18:00)
--- NOTE | 2019-10-22 09:00 | NUR ---
NURSE NOTES: Patient refused 0900 medications d/t fear that they would upset stomach as pt. is NPO for CT. Education provided, however, pt. continues to refuse.
--- NOTE | 2019-10-22 09:21 | NUR ---
DISCHARGE PLANNING AWAITING CLEARANCE FROM (ID) DR URENA TO TRANSFER TO HIGHER LEVEL OF CARE FOR CARDIAC CATH PER DR TORRES'S NOTES
--- NOTE | 2019-10-22 10:28 | NUR ---
NURSE NOTES: Pt. off the floor for CT.
--- NOTE | 2019-10-22 10:41 | NUR ---
PT NOTE Attempted to see patient for PT treatment however patient off the floor for CT. Will follow.
--- NOTE | 2019-10-22 10:42 | NUR ---
PT WEEKLY PROGRESS NOTE Patient is being seen for skilled PT intervention for therapeutic exercises and bed mobility training. Patient has been participating with BLE exercises in supine and sitting. Patient able to come to sitting at the EOB with max assist of 1-2 people and is able to sit unsupported at the EOB. Progress limited by recent c/o L groin pain. Patient will benefit from continued skilled inpatient PT intervention to increase strength and mobility skills for improved level of functional mobility.
--- NOTE | 2019-10-22 10:50 | NUR ---
NURSE NOTES: Patient's back from CT. Patient's stable, Heparin Drip is continuous.
--- NOTE | 2019-10-22 11:04 | Pulmonology Progress Note ---
Subjective ROS Limited/Unobtainable: No Interval Events: c/o pain after the venous doppler was done Gastrointestinal/Abdominal: Reports: other - pain in left lower abdominal quatdrant Allergies: Coded Allergies: CODEINE (Verified Allergy, Unknown, 10/10/19) Objective Last 24 Hour Vital Signs Date Time Temp Pulse Resp B/P (MAP) Pulse Ox O2 Delivery O2 Flow Rate FiO2 10/22/19 09:00 Room Air 10/22/19 09:00 60 137/61 10/22/19 09:00 60 137/61 10/22/19 09:00 137/61 10/22/19 08:00 49 10/22/19 08:00 98.1 60 20 137/61 (86) 97 10/22/19 04:00 60 10/22/19 04:00 98.0 81 18 130/66 (87) 97 10/22/19 00:15 99.3 10/22/19 00:00 76 10/21/19 23:50 100.4 10/21/19 21:40 70 120/61 10/21/19 21:00 Room Air 10/21/19 20:00 74 10/21/19 20:00 99.5 70 18 120/61 (80) 93 10/21/19 16:00 100.0 81 18 146/76 (99) 98 10/21/19 16:00 71 10/21/19 12:31 99.0 10/21/19 12:00 67 10/21/19 12:00 101.1 80 19 128/68 (88) 96 Intake and Output 10/21/19 10/22/19 19:00 07:00 Intake Total 1263.715 ml 483.483 ml Output Total 2800 ml 320 ml Balance -1536.285 ml 163.483 ml Intake Oral 1000 ml IV Total 263.715 ml 483.483 ml Output Urine Total 2800 ml 320 ml # Bowel Movements 3 General Appearance: WD/WN HEENT: normocephalic, atraumatic Respiratory: chest wall non-tender, lungs clear Breasts: no masses Cardiovascular: normal peripheral pulses Abdomen: normal bowel sounds, soft, non tender Genitourinary: normal external genitalia Extremities: no cyanosis Skin: no lesions 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 Lymphatic: no neck adenopathy Microbiology Date/Time Source Procedure Growth Status 10/21/19 00:00 Urine,Clean Catch Urine Culture - Preliminary NO GROWTH Resulted Laboratory Tests 10/22/19 04:12: White Blood Count 6.8, Red Blood Count 3.03L, Hemoglobin 8.2L, Hematocrit 27.1L , Mean Corpuscular Volume 90, Mean Corpuscular Hemoglobin 27.1, Mean Corpuscular Hemoglobin Concent 30.3L, Red Cell Distribution Width 16.1H, Platelet Count 331, Mean Platelet Volume 8.8, Neutrophils (%) (Auto) 62.6, Lymphocytes (%) (Auto) 20.9, Monocytes (%) (Auto) 11.3H, Eosinophils (%) (Auto) 3.1H, Basophils (%) (Auto) 2.2H, Activated Partial Thromboplast Time 78H, Sodium Level 136, Potassium Level 4.4, Chloride Level 101, Carbon Dioxide Level 28, Anion Gap 7, Blood Urea Nitrogen 25H, Creatinine 2.1H, Estimat Glomerular Filtration Rate 27.9, Glucose Level 159H, Calcium Level 8.9, Troponin I 0.124H Current Medications Medications (Trade) Dose Ordered Sig/Adria Route PRN Reason Start Time Stop Time Status Last Admin Dose Admin Acetaminophen (Tylenol) 650 mg Q4H PRN ORAL fever 10/11/19 08:30 11/09/19 08:29 10/21/19 23:45 Acetaminophen (Tylenol) 650 mg Q4H PRN RECTAL Temp >100.5 10/14/19 06:30 11/13/19 06:29 Amlodipine Besylate (Norvasc) 10 mg DAILY ORAL 10/21/19 09:00 11/20/19 08:59 10/21/19 09:31 Aspirin (Ecotrin) 81 mg DAILY ORAL 10/11/19 09:00 11/25/19 08:59 10/21/19 09:29 Atorvastatin Calcium (Lipitor) 40 mg BEDTIME ORAL 10/12/19 21:00 01/10/20 20:59 10/21/19 21:40 Barium Sulfate (Readi-Cat 2) 450 ml NOW PRN ORAL Radiology Procedure 10/21/19 19:30 10/23/19 19:23 Carvedilol (Coreg) 6.25 mg EVERY 12 HOURS ORAL 10/21/19 21:00 11/20/19 20:59 10/21/19 21:40 Ceftriaxone Sodium 1 gm/ Dextrose 55 ml @ 110 mls/hr Q24H IVPB 10/17/19 16:00 10/31/19 23:59 10/21/19 16:21 Clonidine HCl (Catapres Tab) 0.1 mg Q4H PRN ORAL Blood pressure over 160 systol 10/11/19 08:30 01/08/20 08:29 10/18/19 06:26 Dextrose (Dextrose 50%) 25 ml Q30M PRN IV Hypoglycemia 10/11/19 08:30 01/08/20 11:29 Dextrose (Dextrose 50%) 50 ml Q30M PRN IV Hypoglycemia 10/11/19 08:30 01/08/20 11:29 Docusate Sodium (Colace) 100 mg THREE TIMES A DAY ORAL 10/11/19 09:00 11/09/19 17:59 10/13/19 17:36 Gabapentin (Neurontin) 200 mg THREE TIMES A DAY ORAL 10/16/19 13:00 11/09/19 12:59 10/21/19 17:42 Heparin Sodium/ Dextrose 500 ml @ 43.953 mls/ hr ADJUST PER PROTOCOL IV 10/20/19 07:30 11/16/19 03:59 10/22/19 00:52 Insulin Aspart (NovoLOG) BEFORE MEALS AND HS SUBQ 10/11/19 11:30 01/08/20 11:29 10/21/19 21:47 Isosorbide Mononitrate (Imdur) 30 mg DAILY ORAL 10/13/19 09:00 11/12/19 08:59 10/21/19 09:29 Latanoprost (Xalatan) 1 drop BEDTIME BOTH EYES 10/17/19 21:00 11/16/19 20:59 10/21/19 21:44 Morphine Sulfate (Morphine Sulfate) 2 mg Q4H PRN IVP For Pain 10/20/19 01:30 10/27/19 01:29 Nitroglycerin (Ntg) 0.4 mg Q5M PRN SL Prn Chest Pain 10/11/19 08:30 11/09/19 11:29 Ondansetron HCl (Zofran) 4 mg Q6H PRN IVP Nausea & Vomiting 10/11/19 08:30 11/09/19 08:29 Pantoprazole (Protonix) 40 mg EVERY 12 HOURS ORAL 10/14/19 21:00 11/13/19 20:59 10/21/19 21:40 Polyethylene Glycol (Miralax) 17 gm DAILYPRN PRN ORAL Constipation 10/11/19 08:30 11/09/19 08:29 Tramadol HCl (Ultram) 50 mg Q6H PRN ORAL For Pain 10/20/19 01:30 10/27/19 01:29 10/21/19 17:43 Assessment/Plan Problems: (1) Sepsis (2) NSTEMI (non-ST elevated myocardial infarction) (3) Renal failure (ARF), acute on chronic (4) Pyelonephritis (5) Atrial fibrillation with rapid ventricular response (6) Chronic atrial fibrillation (7) Limited mobility (8) Anemia (9) Diabetes mellitus (10) Morbid obesity Assessment/Plan still febrile CT abdomen and pelvis pending tdoay asymptomatic electrolytes supplement iv abx by ID, Meropenem creatinine is stable now, renal function improving asa, plavix and b idalia cardio suggest "Noninvasive w/u vs cardiac cath when stable from ID standpoint, to evaluate CAD," sliding scale diabetic diet renal studies dvt prophylaxis. Bandar Brownlee MD Oct 22, 2019 11:04
[2019-10-22 12:00] VITALS: BP 144/76
--- NOTE | 2019-10-22 12:24 | Nephrology Progress Note ---
Assessment/Plan Problem List: (1) Renal failure (ARF), acute on chronic (2) Diabetes mellitus (3) Morbid obesity (4) Chronic atrial fibrillation (5) History of DVT (deep vein thrombosis) (6) Anemia (7) NSTEMI (non-ST elevated myocardial infarction) (8) Sepsis (9) Pyelonephritis Assessment Renal failure, most likely acute on chronic. Sepsis, leukocytosis, fever, suspected 2019 novel coronavirus infection. Encephalopathy most likely toxic metabolic UTI/pyelonephritis Anemia Atrial fibrillation chronic, with fast ventricular rate. Diabetes mellitus Morbid obesity/limited mobility History of DVT Elevated troponin I Lactic acidosis Plan October 21: Labs reviewed. Serum creatinine stable. Patient remains full code. Continue per consultants. Urinalysis results from yesterday noted. Culture so far negative. October 20: Labs are reviewed. Creatinine 2.1. White blood cells within normal range. Blood pressure is reasonably controlled. Medication reviewed and adjusted. Coreg dose increased. UA and culture ordered. October 19: Lab reviewed. Creatinine lower. Will adjust blood pressure medication. Leukocytosis resolved. October 18: No can panel drawn today. Clinically stable. Will check labs in a.m. Continue per consultants. October 17: Serum creatinine stable lowering. Continues to improve. Full code. Continue per consultants. October 16: Serum creatinine lowering. White blood cell is lowering. Clinically improving. Continue per consultants. October 15: Serum creatinine lowered to 2.6. White blood cell count is also down to 17,000. Not much to add from renal standpoint of view. Continue per cardiology and per ID. October 14: Serum creatinine 2.8. No new changes. Continue per improvement leader. Leukocytosis persists. Remains on meropenem. Continue per ID. October 13: Serum creatinine continues to lower. Troponin level also declining. Continue per cardiology management. Statins was restarted by cardiology. Continue to monitor renal parameters. October 12: Serum creatinine lowering. Troponin I is also declining. Continue per cardiology management. Will continue to follow-up renal parameters and CPK level. October 11: Statins stopped due to worsening LFTs. 1 dose of Plavix given. Imdur started. Serum creatinine stable. Continue per cardiology. Continue to monitor renal parameters and CPK. Monitor troponin I and CPK Aspirin, Coreg ,nitrate for elevated troponin Antibiotics Echocardiogram results noted Kidney ultrasound results pending Monitor urine output and renal parameters Keep the blood pressure and blood sugar in check Coumadin for DVT and atrial fibrillation IV Protonix Subjective ROS Limited/Unobtainable: No Constitutional: Reports: malaise, weakness Objective Objective Last 24 Hour Vital Signs Date Time Temp Pulse Resp B/P (MAP) Pulse Ox O2 Delivery O2 Flow Rate FiO2 10/22/19 12:00 99.1 86 20 144/76 (98) 95 10/22/19 09:00 Room Air 10/22/19 09:00 60 137/61 10/22/19 09:00 60 137/61 10/22/19 09:00 137/61 10/22/19 08:00 49 10/22/19 08:00 98.1 60 20 137/61 (86) 97 10/22/19 04:00 60 10/22/19 04:00 98.0 81 18 130/66 (87) 97 10/22/19 00:15 99.3 10/22/19 00:00 76 10/21/19 23:50 100.4 10/21/19 21:40 70 120/61 10/21/19 21:00 Room Air 10/21/19 20:00 74 10/21/19 20:00 99.5 70 18 120/61 (80) 93 10/21/19 16:00 100.0 81 18 146/76 (99) 98 10/21/19 16:00 71 10/21/19 12:31 99.0 Intake and Output 10/21/19 10/22/19 19:00 07:00 Intake Total 1263.715 ml 483.483 ml Output Total 2800 ml 320 ml Balance -1536.285 ml 163.483 ml Intake Oral 1000 ml IV Total 263.715 ml 483.483 ml Output Urine Total 2800 ml 320 ml # Bowel Movements 3 Laboratory Tests 10/22/19 04:12: White Blood Count 6.8, Red Blood Count 3.03L, Hemoglobin 8.2L, Hematocrit 27.1L , Mean Corpuscular Volume 90, Mean Corpuscular Hemoglobin 27.1, Mean Corpuscular Hemoglobin Concent 30.3L, Red Cell Distribution Width 16.1H, Platelet Count 331, Mean Platelet Volume 8.8, Neutrophils (%) (Auto) 62.6, Lymphocytes (%) (Auto) 20.9, Monocytes (%) (Auto) 11.3H, Eosinophils (%) (Auto) 3.1H, Basophils (%) (Auto) 2.2H, Activated Partial Thromboplast Time 78H, Sodium Level 136, Potassium Level 4.4, Chloride Level 101, Carbon Dioxide Level 28, Anion Gap 7, Blood Urea Nitrogen 25H, Creatinine 2.1H, Estimat Glomerular Filtration Rate 27.9, Glucose Level 159H, Calcium Level 8.9, Troponin I 0.124H Height (Feet): 5 Height (Inches): 3.00 Weight (Pounds): 323 General Appearance: no apparent distress Cardiovascular: normal rate Respiratory/Chest: decreased breath sounds Abdomen: soft, other - Obese Pantera Wallace MD Oct 22, 2019 12:24
[2019-10-22] MEDS: traMADol 50mg tab ORAL PRN ×2 (13:13→20:26)
--- NOTE | 2019-10-22 13:41 | Diagnostic Imaging Report ---
EXAM: CT CT Chest Abdomen Pelvis wo Con INDICATION: Shortness of breath. Abdominal pain. Bacteremia and fever. Leukocytosis. Encephalopathy. COMPARISON: None TECHNIQUE: Axial images were obtained through the chest, abdomen and pelvis without intravenous contrast. Sagittal and coronal reformats are generated. All CT scans at this facility are performed using dose modulation techniques as appropriate to a performed exam including the following: automated exposure control with adjustment of the mA and/or kV according to patient size. RADIATION DOSE: CTDIvol: 23.4 mGy DLP: 1564.1 mGy-cm Dose information generated by the CT scanner is available in PACS. CHEST FINDINGS: There is a mosaic pattern with some air trapping in both lungs. There are small peripheral groundglass densities noted in the right upper lobe and some linear atelectasis or scarring noted in both lung bases. No alveolar consolidation noted. Cardiac and mediastinal structures are within normal limits. Small lymph nodes noted in the mediastinum and axilla. No pathologic size adenopathy seen.. There is no effusion. There is a hiatal hernia. Surgical changes noted at the GE junction and along the lesser curvature of the stomach. ABDOMEN/PELVIS FINDINGS: Liver and spleen are homogeneous on this nonenhanced scan. There are dependent small gallstones. Mild fatty atrophy of the pancreas demonstrated. There is a small cyst at the pancreatic tail. Adrenals are normal in morphology. There are bilateral renal cysts. Several stones noted at the lower pole of the left kidney. No hydronephrosis seen bilaterally. Small bowel loops are nondistended. There is diverticulosis without sign of acute diverticulitis. The appendix is normal. There is no free fluid or free air. No pathologic adenopathy demonstrated. Bladder is almost empty with Anne catheter in place. Uterus is midline. Fatty ventral hernia noted in the supraumbilical region. There is extensive soft tissue edema along the flanks and in the anterior abdominal pelvic wall suggestive of anasarca. There are severe degenerative changes of the lumbar spine. IMPRESSION: SOME AIR TRAPPING IN BOTH LUNGS. SMALL PERIPHERAL GROUNDGLASS DENSITIES POSTERIOR RIGHT UPPER LOBE. EARLY VIRAL PNEUMONITIS MAY PRESENT SIMILARLY. HIATAL HERNIA AND POSTOPERATIVE CHANGES OF THE STOMACH. GALLSTONES. ATROPHIC PANCREAS WITH SMALL CYST AT THE PANCREATIC TAIL. LEFT RENAL STONES. BILATERAL RENAL CYSTS. NO HYDRONEPHROSIS. DIVERTICULOSIS. SUPRAUMBILICAL FATTY VENTRAL HERNIA. ANASARCA.
--- NOTE | 2019-10-22 13:44 | Infectious Diseases Prog Note ---
Assessment/Plan Assessment/Plan Assessment: Severe Sepsis Probable PNA- COVID neg x2- sp VEnturi mask 8L- now at [facility] -10/20 CXR: Cardiomegaly. No acute disease. -10/13 CXR: Mild vascular congestion. Probable small left pleural effusion. -10/10 SARS-COV2 PCR neg -10/09 CXR: Mild interstitial congestion. Cannot rule out small left pleural effusion SARS-COV2 PCR neg E.coli UTI c/w high grade bacteremia- -10/20 u/a wbc 5-10, nit neg, leuk +3; ucx NTD -u/a wbc tnct, nit neg, leuk +3; ucx >100k E.coli (R Levauin; otherwise S) -10/09 Bcx / E.coli (R levaquin; otherwise S); 10/10 Bcx 1/4 E.coli; 10/13, BCx Neg x4 Fever; recurrent Leukocytosis; SP -10/17 v. duplex BLE: limited study, No DVT Acute encephalopathy; SP LG, worsened, now improving -renal US: Negative for hydronephrosis. Possible nonobstructive left lower pole renal calculi. Incidental finding of bilateral renal parapelvic cysts. morbid obesity HTN Dm2 hx of UTI Afib on coumadin [facility] resident ([facility]) Plan: Ceftriaxone #6 (abx d #13/14-21) for E.coli bacteremia -10/16 SP Meropenem #7 -10/13 SP IV Vancomycin #5 -10/10 SP cefepime #2 -10/09 SP Meropenem x1 -f/u cx -monitor CBC/CMP, temperatures -COVID19 neg x2 -f/u repeat Bcx x2 -f/u CT c/abd/p wo given recurrent fevers Thank you for consulting [facility]. Will continue to follow along with you. Discussed with RN. Subjective Allergies: Coded Allergies: CODEINE (Verified Allergy, Unknown, 10/10/19) Subjective Tm 100.4 at no leukocytosis Cr improving Objective Vital Signs Last 24 Hour Vital Signs Date Time Temp Pulse Resp B/P (MAP) Pulse Ox O2 Delivery O2 Flow Rate FiO2 10/22/19 12:00 99.1 86 20 144/76 (98) 95 10/22/19 09:00 Room Air 10/22/19 09:00 60 137/61 10/22/19 09:00 60 137/61 10/22/19 09:00 137/61 10/22/19 08:00 49 10/22/19 08:00 98.1 60 20 137/61 (86) 97 10/22/19 04:00 60 10/22/19 04:00 98.0 81 18 130/66 (87) 97 10/22/19 00:15 99.3 10/22/19 00:00 76 10/21/19 23:50 100.4 10/21/19 21:40 70 120/61 10/21/19 21:00 Room Air 10/21/19 20:00 74 10/21/19 20:00 99.5 70 18 120/61 (80) 93 10/21/19 16:00 100.0 81 18 146/76 (99) 98 10/21/19 16:00 71 Height (Feet): 5 Height (Inches): 3.00 Weight (Pounds): 323 Objective GENERAL: Patient is well-developed, well-nourished, slightly obese female, in no apparent distress. HEENT: Eyes, pupils are equal and responsive to light and accommodation. Extraocular movements are intact. NECK: Supple. No lymphadenopathy. CHEST: Lungs are clear to auscultation bilaterally without wheezes or rales. CARDIOVASCULAR: Regular rate. S1, S2 are normal without murmurs, rubs, or gallops. ABDOMEN: Soft, nontender, nondistended. Positive bowel sounds. No evidence of hepatosplenomegaly. Currently no rebound or guarding noted. EXTREMITIES: Negative for clubbing, cyanosis, or edema. Microbiology Date/Time Source Procedure Growth Status 10/21/19 00:00 Urine,Clean Catch Urine Culture - Preliminary NO GROWTH Resulted Laboratory Tests Test 10/22/19 04:12 White Blood Count 6.8 K/UL (4.8-10.8) Red Blood Count 3.03 M/UL (4.20-5.40) L Hemoglobin 8.2 G/DL (12.0-16.0) L Hematocrit 27.1 % (37.0-47.0) L Mean Corpuscular Volume 90 FL (80-99) Mean Corpuscular Hemoglobin 27.1 PG (27.0-31.0) Mean Corpuscular Hemoglobin Concent 30.3 G/DL (32.0-36.0) L Red Cell Distribution Width 16.1 % (11.6-14.8) H Platelet Count 331 K/UL (150-450) Mean Platelet Volume 8.8 FL (6.5-10.1) Neutrophils (%) (Auto) 62.6 % (45.0-75.0) Lymphocytes (%) (Auto) 20.9 % (20.0-45.0) Monocytes (%) (Auto) 11.3 % (1.0-10.0) H Eosinophils (%) (Auto) 3.1 % (0.0-3.0) H Basophils (%) (Auto) 2.2 % (0.0-2.0) H Activated Partial Thromboplast Time 78 SEC (23-33) H Sodium Level 136 MMOL/L (136-145) Potassium Level 4.4 MMOL/L (3.5-5.1) Chloride Level 101 MMOL/L (98-107) Carbon Dioxide Level 28 MMOL/L (21-32) Anion Gap 7 mmol/L (5-15) Blood Urea Nitrogen 25 mg/dL (7-18) H Creatinine 2.1 MG/DL (0.55-1.30) H Estimat Glomerular Filtration Rate 27.9 mL/min (>60) Glucose Level 159 MG/DL (74-106) H Calcium Level 8.9 MG/DL (8.5-10.1) Troponin I 0.124 ng/mL (0.000-0.056) Current Medications Medications (Trade) Dose Ordered Sig/Adria Route PRN Reason Start Time Stop Time Status Last Admin Dose Admin Acetaminophen (Tylenol) 650 mg Q4H PRN ORAL fever 10/11/19 08:30 11/09/19 08:29 10/21/19 23:45 Acetaminophen (Tylenol) 650 mg Q4H PRN RECTAL Temp >100.5 10/14/19 06:30 11/13/19 06:29 Amlodipine Besylate (Norvasc) 10 mg DAILY ORAL 10/21/19 09:00 11/20/19 08:59 10/21/19 09:31 Aspirin (Ecotrin) 81 mg DAILY ORAL 10/11/19 09:00 11/25/19 08:59 10/21/19 09:29 Atorvastatin Calcium (Lipitor) 40 mg BEDTIME ORAL 10/12/19 21:00 01/10/20 20:59 10/21/19 21:40 Barium Sulfate (Readi-Cat 2) 450 ml NOW PRN ORAL Radiology Procedure 10/21/19 19:30 10/23/19 19:23 Carvedilol (Coreg) 6.25 mg EVERY 12 HOURS ORAL 10/21/19 21:00 11/20/19 20:59 10/21/19 21:40 Ceftriaxone Sodium 1 gm/ Dextrose 55 ml @ 110 mls/hr Q24H IVPB 10/17/19 16:00 10/31/19 23:59 10/21/19 16:21 Clonidine HCl (Catapres Tab) 0.1 mg Q4H PRN ORAL Blood pressure over 160 systol 10/11/19 08:30 01/08/20 08:29 10/18/19 06:26 Dextrose (Dextrose 50%) 25 ml Q30M PRN IV Hypoglycemia 10/11/19 08:30 01/08/20 11:29 Dextrose (Dextrose 50%) 50 ml Q30M PRN IV Hypoglycemia 10/11/19 08:30 01/08/20 11:29 Docusate Sodium (Colace) 100 mg THREE TIMES A DAY ORAL 10/11/19 09:00 11/09/19 17:59 10/22/19 13:12 Gabapentin (Neurontin) 200 mg THREE TIMES A DAY ORAL 10/16/19 13:00 11/09/19 12:59 10/22/19 13:12 Heparin Sodium/ Dextrose 500 ml @ 43.953 mls/ hr ADJUST PER PROTOCOL IV 10/20/19 07:30 11/16/19 03:59 10/22/19 11:46 Insulin Aspart (NovoLOG) BEFORE MEALS AND HS SUBQ 10/11/19 11:30 01/08/20 11:29 10/21/19 21:47 Isosorbide Mononitrate (Imdur) 30 mg DAILY ORAL 10/13/19 09:00 11/12/19 08:59 10/21/19 09:29 Latanoprost (Xalatan) 1 drop BEDTIME BOTH EYES 10/17/19 21:00 11/16/19 20:59 10/21/19 21:44 Morphine Sulfate (Morphine Sulfate) 2 mg Q4H PRN IVP For Pain 10/20/19 01:30 10/27/19 01:29 Nitroglycerin (Ntg) 0.4 mg Q5M PRN SL Prn Chest Pain 10/11/19 08:30 11/09/19 11:29 Ondansetron HCl (Zofran) 4 mg Q6H PRN IVP Nausea & Vomiting 10/11/19 08:30 11/09/19 08:29 Pantoprazole (Protonix) 40 mg EVERY 12 HOURS ORAL 10/14/19 21:00 11/13/19 20:59 10/21/19 21:40 Polyethylene Glycol (Miralax) 17 gm DAILYPRN PRN ORAL Constipation 10/11/19 08:30 11/09/19 08:29 Tramadol HCl (Ultram) 50 mg Q6H PRN ORAL For Pain 10/20/19 01:30 10/27/19 01:29 10/22/19 13:13 Hannah Mays M.D. Oct 22, 2019 13:44
--- NOTE | 2019-10-22 14:12 | Cardiology Progress Note ---
Assessment/Plan Assessment/Plan 1. Permanent atrial fibrillation, on anticoagulation. 2. Toxic-metabolic encephalopathy. 3. Urinary tract infection, question pyelonephritis. 4. Diabetes mellitus. 5. Hypertension history. 6. Morbid obesity. 7. Myocardial infarction. 8. Acute on chronic renal insufficiency. 9. Coagulopathy secondary to Coumadin. 10. Bacteremia gnr 11. Iron def 12 RV hypokinesis and enlargment 13. pain in the left groin covid neg isolation removed but she just spiked a temp on 10/20 trop may be related to poulm embolism or cad venous duplex neg buit tech difficutl stduye for now remain on heparin for afib adn possible PE bp seems high will add low dose norvasc repeat trop contiinues to taper down 10/21 afebrile as ofn late last nteid echo repeated today 10/21 lv function still good rv is mildly enlarged and hypo tele reviewed afib refused v/q for now remain on heparin for afib adn possible PE fever alvarado per id had ct we discussed the result of the trop and my concern about the possibility of pe ( for which she declined v/q) the possibility of underlying cad which will need to have coronary angiogram performed , she declined angiogram told me she had one done 2014 at [facility] was told normal , she understand that it was 5 years ago , but she stil declines cardiac cath at [facility] report of ct of abd and plevis reviewed nothing abn is noted in the left groin will d/w radiologist to see if anything else can be seen on that scan or needs a dedicated ct of thigh and hip , she denies any recent falls there were no sudden drops of hemoglobin Subjective Cardiovascular: Reports: chest pain, lightheadedness, palpitations Respiratory: Reports: shortness of breath Subjective c/o L groin pain, after venous deuplex Objective Last 24 Hour Vital Signs Date Time Temp Pulse Resp B/P (MAP) Pulse Ox O2 Delivery O2 Flow Rate FiO2 10/22/19 12:00 99.1 86 20 144/76 (98) 95 10/22/19 12:00 80 10/22/19 09:00 Room Air 10/22/19 09:00 60 137/61 10/22/19 09:00 60 137/61 10/22/19 09:00 137/61 10/22/19 08:00 49 10/22/19 08:00 98.1 60 20 137/61 (86) 97 10/22/19 04:00 60 10/22/19 04:00 98.0 81 18 130/66 (87) 97 10/22/19 00:15 99.3 10/22/19 00:00 76 10/21/19 23:50 100.4 10/21/19 21:40 70 120/61 10/21/19 21:00 Room Air 10/21/19 20:00 74 10/21/19 20:00 99.5 70 18 120/61 (80) 93 10/21/19 16:00 100.0 81 18 146/76 (99) 98 10/21/19 16:00 71 General Appearance: no apparent distress, alert Cardiovascular: normal rate Respiratory/Chest: lungs clear Abdomen: normal bowel sounds, non tender, soft, other - left pelvis tenderness Extremities: severe edema - [id number] Intake and Output 10/21/19 10/22/19 19:00 07:00 Intake Total 1263.715 ml 483.483 ml Output Total 2800 ml 320 ml Balance -1536.285 ml 163.483 ml Intake Oral 1000 ml IV Total 263.715 ml 483.483 ml Output Urine Total 2800 ml 320 ml # Bowel Movements 3 Laboratory Tests Test 10/22/19 04:12 White Blood Count 6.8 K/UL (4.8-10.8) Red Blood Count 3.03 M/UL (4.20-5.40) L Hemoglobin 8.2 G/DL (12.0-16.0) L Hematocrit 27.1 % (37.0-47.0) L Mean Corpuscular Volume 90 FL (80-99) Mean Corpuscular Hemoglobin 27.1 PG (27.0-31.0) Mean Corpuscular Hemoglobin Concent 30.3 G/DL (32.0-36.0) L Red Cell Distribution Width 16.1 % (11.6-14.8) H Platelet Count 331 K/UL (150-450) Mean Platelet Volume 8.8 FL (6.5-10.1) Neutrophils (%) (Auto) 62.6 % (45.0-75.0) Lymphocytes (%) (Auto) 20.9 % (20.0-45.0) Monocytes (%) (Auto) 11.3 % (1.0-10.0) H Eosinophils (%) (Auto) 3.1 % (0.0-3.0) H Basophils (%) (Auto) 2.2 % (0.0-2.0) H Activated Partial Thromboplast Time 78 SEC (23-33) H Sodium Level 136 MMOL/L (136-145) Potassium Level 4.4 MMOL/L (3.5-5.1) Chloride Level 101 MMOL/L (98-107) Carbon Dioxide Level 28 MMOL/L (21-32) Anion Gap 7 mmol/L (5-15) Blood Urea Nitrogen 25 mg/dL (7-18) H Creatinine 2.1 MG/DL (0.55-1.30) H Estimat Glomerular Filtration Rate 27.9 mL/min (>60) Glucose Level 159 MG/DL (74-106) H Calcium Level 8.9 MG/DL (8.5-10.1) Troponin I 0.124 ng/mL (0.000-0.056) Microbiology Date/Time Source Procedure Growth Status 10/21/19 00:00 Urine,Clean Catch Urine Culture - Preliminary NO GROWTH Resulted Arun Barker MD Oct 22, 2019 14:12
[2019-10-22 16:00] VITALS: BP 161/80
[2019-10-22] MEDS: cefTRIAXone 1 GM in D5W 55 ML IVPB SCH (16:22)
--- NOTE | 2019-10-22 16:34 | Internal Med Progress Note ---
Subjective Date of Service: Oct 22, 2019 Physician Name PattieJohny Attending Physician Aleksandr Vega MD Current Medications Medications (Trade) Dose Ordered Sig/Adria Route PRN Reason Start Time Stop Time Status Last Admin Dose Admin Acetaminophen (Tylenol) 650 mg Q4H PRN ORAL fever 10/11/19 08:30 11/09/19 08:29 10/21/19 23:45 Acetaminophen (Tylenol) 650 mg Q4H PRN RECTAL Temp >100.5 10/14/19 06:30 11/13/19 06:29 Amlodipine Besylate (Norvasc) 10 mg DAILY ORAL 10/21/19 09:00 11/20/19 08:59 10/21/19 09:31 Aspirin (Ecotrin) 81 mg DAILY ORAL 10/11/19 09:00 11/25/19 08:59 10/21/19 09:29 Atorvastatin Calcium (Lipitor) 40 mg BEDTIME ORAL 10/12/19 21:00 01/10/20 20:59 10/21/19 21:40 Barium Sulfate (Readi-Cat 2) 450 ml NOW PRN ORAL Radiology Procedure 10/21/19 19:30 10/23/19 19:23 Carvedilol (Coreg) 6.25 mg EVERY 12 HOURS ORAL 10/21/19 21:00 11/20/19 20:59 10/21/19 21:40 Ceftriaxone Sodium 1 gm/ Dextrose 55 ml @ 110 mls/hr Q24H IVPB 10/17/19 16:00 10/31/19 23:59 10/22/19 16:22 Clonidine HCl (Catapres Tab) 0.1 mg Q4H PRN ORAL Blood pressure over 160 systol 10/11/19 08:30 01/08/20 08:29 10/18/19 06:26 Dextrose (Dextrose 50%) 25 ml Q30M PRN IV Hypoglycemia 10/11/19 08:30 01/08/20 11:29 Dextrose (Dextrose 50%) 50 ml Q30M PRN IV Hypoglycemia 10/11/19 08:30 01/08/20 11:29 Docusate Sodium (Colace) 100 mg THREE TIMES A DAY ORAL 10/11/19 09:00 11/09/19 17:59 10/22/19 13:12 Gabapentin (Neurontin) 200 mg THREE TIMES A DAY ORAL 10/16/19 13:00 7/4/20 12:59 10/22/19 13:12 Heparin Sodium/ Dextrose 500 ml @ 43.953 mls/ hr ADJUST PER PROTOCOL IV 10/20/19 07:30 11/16/19 03:59 10/22/19 11:46 Insulin Aspart (NovoLOG) BEFORE MEALS AND HS SUBQ 10/11/19 11:30 01/08/20 11:29 10/21/19 21:47 Isosorbide Mononitrate (Imdur) 30 mg DAILY ORAL 10/13/19 09:00 11/12/19 08:59 10/21/19 09:29 Latanoprost (Xalatan) 1 drop BEDTIME BOTH EYES 10/17/19 21:00 11/16/19 20:59 10/21/19 21:44 Morphine Sulfate (Morphine Sulfate) 2 mg Q4H PRN IVP For Pain 10/20/19 01:30 10/27/19 01:29 Nitroglycerin (Ntg) 0.4 mg Q5M PRN SL Prn Chest Pain 10/11/19 08:30 11/09/19 11:29 Ondansetron HCl (Zofran) 4 mg Q6H PRN IVP Nausea & Vomiting 10/11/19 08:30 11/09/19 08:29 Pantoprazole (Protonix) 40 mg EVERY 12 HOURS ORAL 10/14/19 21:00 11/13/19 20:59 10/21/19 21:40 Polyethylene Glycol (Miralax) 17 gm DAILYPRN PRN ORAL Constipation 10/11/19 08:30 11/09/19 08:29 Tramadol HCl (Ultram) 50 mg Q6H PRN ORAL For Pain 10/20/19 01:30 10/27/19 01:29 10/22/19 13:13 Allergies: Coded Allergies: CODEINE (Verified Allergy, Unknown, 10/10/19) ROS Limited/Unobtainable: No Constitutional: Reports: no symptoms HEENT: Reports: no symptoms Cardiovascular: Reports: no symptoms Respiratory: Reports: no symptoms Gastrointestinal/Abdominal: Reports: no symptoms Genitourinary: Reports: no symptoms Neurologic/Psychiatric: Reports: no symptoms Subjective 74 YO F admitted with altered mental status and fever. Now UTI and sepsis. Cover for Int Med-Dr Vega. Refused V/Q scan Objective Last Vital Signs Date Time Temp Pulse Resp B/P (MAP) Pulse Ox O2 Delivery O2 Flow Rate FiO2 10/22/19 12:00 99.1 86 20 144/76 (98) 95 10/22/19 09:00 Room Air 10/20/19 07:47 21 10/14/19 21:00 8.0 Laboratory Tests Test 10/22/19 04:12 White Blood Count 6.8 K/UL (4.8-10.8) Red Blood Count 3.03 M/UL (4.20-5.40) L Hemoglobin 8.2 G/DL (12.0-16.0) L Hematocrit 27.1 % (37.0-47.0) L Mean Corpuscular Volume 90 FL (80-99) Mean Corpuscular Hemoglobin 27.1 PG (27.0-31.0) Mean Corpuscular Hemoglobin Concent 30.3 G/DL (32.0-36.0) L Red Cell Distribution Width 16.1 % (11.6-14.8) H Platelet Count 331 K/UL (150-450) Mean Platelet Volume 8.8 FL (6.5-10.1) Neutrophils (%) (Auto) 62.6 % (45.0-75.0) Lymphocytes (%) (Auto) 20.9 % (20.0-45.0) Monocytes (%) (Auto) 11.3 % (1.0-10.0) H Eosinophils (%) (Auto) 3.1 % (0.0-3.0) H Basophils (%) (Auto) 2.2 % (0.0-2.0) H Activated Partial Thromboplast Time 78 SEC (23-33) H Sodium Level 136 MMOL/L (136-145) Potassium Level 4.4 MMOL/L (3.5-5.1) Chloride Level 101 MMOL/L (98-107) Carbon Dioxide Level 28 MMOL/L (21-32) Anion Gap 7 mmol/L (5-15) Blood Urea Nitrogen 25 mg/dL (7-18) H Creatinine 2.1 MG/DL (0.55-1.30) H Estimat Glomerular Filtration Rate 27.9 mL/min (>60) Glucose Level 159 MG/DL (74-106) H Calcium Level 8.9 MG/DL (8.5-10.1) Troponin I 0.124 ng/mL (0.000-0.056) Microbiology Date/Time Source Procedure Growth Status 10/21/19 00:00 Urine,Clean Catch Urine Culture - Preliminary NO GROWTH Resulted Intake and Output 10/21/19 10/22/19 19:00 07:00 Intake Total 1263.715 ml 483.483 ml Output Total 2800 ml 320 ml Balance -1536.285 ml 163.483 ml Intake Oral 1000 ml IV Total 263.715 ml 483.483 ml Output Urine Total 2800 ml 320 ml # Bowel Movements 3 Objective PHYSICAL EXAMINATION: GENERAL: Patient is well-developed, well-nourished, slightly obese female, in no apparent distress. HEENT: Eyes, pupils are equal and responsive to light and accommodation. Extraocular movements are intact. NECK: Supple. No lymphadenopathy. CHEST: Lungs are clear to auscultation bilaterally without wheezes or rales. CARDIOVASCULAR: Regular rate. S1, S2 are normal without murmurs, rubs, or gallops. ABDOMEN: Soft, nontender, nondistended. Positive bowel sounds. No evidence of hepatosplenomegaly. Currently no rebound or guarding noted. EXTREMITIES: Negative for clubbing, cyanosis, or edema. RECTAL/GENITAL: Not performed. NEUROLOGIC: Cranial nerves II to XII grossly intact without focal deficits Assessment/Plan Assessment/Plan ASSESSMENT: This is a 74-year-old female. 1. Sepsis=E. Coli 2. UTI=E. Coli 3. Altered mental status. 4. Leukocytosis. 5. Elevated troponin. 6. Atrial fibrillation. 7. Diabetes type 2. 8. Hypertension. 9. Hyperthyroidism. 10. Coronary artery disease. 11. Renal failure. 12. Hypercholesterolemia. 13. Chronic lymphedema of the bilateral lower extremities. 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 Urinary Tract infection-E. Coli ABX=ceftriaxone, S/P meropenem. Infectious Disease=Dr. Mays. We will follow recommendations of Infectious Disease. 2. Sepsis=E. Coli Await culture and sensitivity result. Continue meropenem per ID. 3. Altered mental status. Resolved 4. Leukocytosis. Resolved 5. Elevated troponin. A Cardiology consultation has been obtained with Dr. Arun Barker. 6. Atrial fibrillation. Continue Coumadin as above. A Cardiology consultation has been obtained with Dr. Arun Barker. 7. Diabetes type 2. NovoLog sliding scale has been instituted. 8. Hypertension. Patient is currently hypotensive. Hold amlodipine as above. 9. Hyperthyroidism. Continue methimazole as above. 10. Coronary artery disease. Patient has elevated troponin. A Cardiology consultation has been obtained with Dr. Arun Barker. 11. Renal failure. A Nephrology consultation has been obtained with Dr. Pantera Wallace. 12. Hypercholesterolemia. Continue simvastatin as above. 13. Chronic lymphedema of bilateral lower extremities. 14. Will need CT abdomen/pelvis to R/O abscess-see ID note. 15. Await cardiac cath-see cardiology note 16. Refused V/Q scan to R/O pulmonary embolism; on heparin drip 17. Non invasive W/U vs cardiac cath Johny Blankenship MD Oct 22, 2019 16:34
--- NOTE | 2019-10-22 18:33 | NUR ---
NURSE NOTES: Pt. had temp. 100.2 which decreased to 99.5 after cooling measures. Will continue to monitor.
--- NOTE | 2019-10-22 19:17 | NUR ---
NURSE NOTES: Reported off to RUTHANN Sullivan.
--- NOTE | 2019-10-22 19:24 | NUR ---
NURSE NOTES: Received report from RUTHANN Worley and RUTHANN Jo. Patient is awake lying semi-mustafa's watching TV; resting comfortably. No signs of acute distress noted; complains of pain and requests for Tramadol PRN. AOx4; able to make needs known. Checked IV site, lines, and IV rate; patent and running. Heparin drip running at 15 units/kg/hr or 43.953 mls/hr. No erythema, bleeding, or infiltration noted. Anne catheter draining well to gravity. Bed at lowest position, brakes on, siderails up x3. Call light within reach. Will continue to monitor.
[2019-10-22 20:00] VITALS: BP 160/82
[2019-10-22] MEDS: Atorvastatin 20mg tab ORAL SCH (20:24)
[2019-10-22] MEDS: Latanoprost 0.005% Opth 2.5ml Soln BOTH EYES SCH (20:24)
[2019-10-23] VITALS: BP 146/77
[2019-10-23] MEDS: Heparin 25,000u/D5W 500ml 500 ML IV SCH ×3 (00:43→23:32)
--- NOTE | 2019-10-23 03:04 | NUR ---
NURSE NOTES: Patient is asleep lying high-mustafa's; resting comfortably. No signs of acute distress noted; denies pain at this time. Heparin drip running at 15 units/kg/hr or 43.953 mls/hr. No bleeding noted.
[2019-10-23 04:00] VITALS: BP 150/70
[2019-10-23] MEDS: NovoLOG Insulin Flexpen SUBQ SCH ×4 (06:12→21:35)
[2019-10-23] MEDS: traMADol 50mg tab ORAL PRN ×2 (06:40→13:02)
--- NOTE | 2019-10-23 07:38 | NUR ---
HAND-OFF: Report given to RUTHANN Vogt. Patient is awake eating breakfast. Anne catheter draining well to gravity. Heparin drip running at 43.953 mls/hr. In stable condition.
--- NOTE | 2019-10-23 07:43 | NUR ---
NURSE NOTES: Patient stable AOx4 eating breakfast comfortably in bed with no s/sx distress. RR even and unlabored on RA. Anne draining well to gravity. Side rails upx2, call light with reach, bed low and locked. Will continue to monitor.
[2019-10-23 08:00] VITALS: BP 142/63
--- NOTE | 2019-10-23 08:15 | NUR ---
NURSE NOTES: Received pt from RN Leigha, pt is awake and alert, pt is in RA, no SOB or acute respiratory distress noted. pt is on continues heart monitoring, pt has intact iv access RFA 22G hep drip is running. no complain of pain at this moment. all needs attended, bed is locked and is in the lowest position, call light within easy reach.
--- NOTE | 2019-10-23 08:47 | NUR ---
HAND-OFF: Report given to Casey BEAVERS. Patient stable. Plan of care endorsed.
[2019-10-23] MEDS: Aspirin EC 81mg tab ORAL SCH (09:35)
[2019-10-23] MEDS: Imdur 30mg tab ORAL SCH (09:35)
[2019-10-23] MEDS: Carvedilol 6.25mg Tab ORAL SCH ×2 (09:35→21:37)
[2019-10-23] MEDS: Docusate 100mg cap ORAL SCH ×3 (09:35→17:13)
--- NOTE | 2019-10-23 11:04 | Internal Med Progress Note ---
Subjective Date of Service: Oct 23, 2019 Physician Name PattieJohny Attending Physician Aleksandr Vega MD Current Medications Medications (Trade) Dose Ordered Sig/Adria Route PRN Reason Start Time Stop Time Status Last Admin Dose Admin Acetaminophen (Tylenol) 650 mg Q4H PRN ORAL fever 10/11/19 08:30 11/09/19 08:29 10/21/19 23:45 Acetaminophen (Tylenol) 650 mg Q4H PRN RECTAL Temp >100.5 10/14/19 06:30 11/13/19 06:29 Amlodipine Besylate (Norvasc) 10 mg DAILY ORAL 10/21/19 09:00 11/20/19 08:59 10/23/19 09:35 Aspirin (Ecotrin) 81 mg DAILY ORAL 10/11/19 09:00 11/25/19 08:59 10/23/19 09:35 Atorvastatin Calcium (Lipitor) 40 mg BEDTIME ORAL 10/12/19 21:00 01/10/20 20:59 10/22/19 20:24 Barium Sulfate (Readi-Cat 2) 450 ml NOW PRN ORAL Radiology Procedure 10/21/19 19:30 10/23/19 19:23 Carvedilol (Coreg) 6.25 mg EVERY 12 HOURS ORAL 10/21/19 21:00 11/20/19 20:59 10/23/19 09:35 Ceftriaxone Sodium 1 gm/ Dextrose 55 ml @ 110 mls/hr Q24H IVPB 10/17/19 16:00 10/31/19 23:59 10/22/19 16:22 Clonidine HCl (Catapres Tab) 0.1 mg Q4H PRN ORAL Blood pressure over 160 systol 10/11/19 08:30 01/08/20 08:29 10/18/19 06:26 Dextrose (Dextrose 50%) 25 ml Q30M PRN IV Hypoglycemia 10/11/19 08:30 01/08/20 11:29 Dextrose (Dextrose 50%) 50 ml Q30M PRN IV Hypoglycemia 10/11/19 08:30 01/08/20 11:29 Docusate Sodium (Colace) 100 mg THREE TIMES A DAY ORAL 10/11/19 09:00 11/09/19 17:59 10/22/19 13:12 Gabapentin (Neurontin) 200 mg THREE TIMES A DAY ORAL 10/16/19 13:00 7/4/20 12:59 10/23/19 09:34 Heparin Sodium/ Dextrose 500 ml @ 43.953 mls/ hr ADJUST PER PROTOCOL IV 10/20/19 07:30 11/16/19 03:59 10/23/19 11:02 Insulin Aspart (NovoLOG) BEFORE MEALS AND HS SUBQ 10/11/19 11:30 01/08/20 11:29 10/22/19 20:33 Isosorbide Mononitrate (Imdur) 30 mg DAILY ORAL 10/13/19 09:00 11/12/19 08:59 10/23/19 09:35 Latanoprost (Xalatan) 1 drop BEDTIME BOTH EYES 10/17/19 21:00 11/16/19 20:59 10/22/19 20:24 Morphine Sulfate (Morphine Sulfate) 2 mg Q4H PRN IVP For Pain 10/20/19 01:30 10/27/19 01:29 Nitroglycerin (Ntg) 0.4 mg Q5M PRN SL Prn Chest Pain 10/11/19 08:30 11/09/19 11:29 Ondansetron HCl (Zofran) 4 mg Q6H PRN IVP Nausea & Vomiting 10/11/19 08:30 11/09/19 08:29 Pantoprazole (Protonix) 40 mg EVERY 12 HOURS ORAL 10/14/19 21:00 11/13/19 20:59 10/23/19 09:35 Polyethylene Glycol (Miralax) 17 gm DAILYPRN PRN ORAL Constipation 10/11/19 08:30 11/09/19 08:29 Tramadol HCl (Ultram) 50 mg Q6H PRN ORAL For Pain 10/20/19 01:30 10/27/19 01:29 10/23/19 06:40 Allergies: Coded Allergies: CODEINE (Verified Allergy, Unknown, 10/10/19) ROS Limited/Unobtainable: No Constitutional: Reports: no symptoms HEENT: Reports: no symptoms Cardiovascular: Reports: no symptoms Respiratory: Reports: no symptoms Gastrointestinal/Abdominal: Reports: no symptoms Genitourinary: Reports: no symptoms Neurologic/Psychiatric: Reports: no symptoms Subjective 74 YO F admitted with altered mental status and fever. Now UTI and sepsis. Cover for Int Med-Dr Vega. Refused V/Q scan Objective Last Vital Signs Date Time Temp Pulse Resp B/P (MAP) Pulse Ox O2 Delivery O2 Flow Rate FiO2 10/23/19 09:35 79 142/63 10/23/19 09:00 Room Air 10/23/19 08:00 98.8 19 97 10/20/19 07:47 21 10/14/19 21:00 8.0 Laboratory Tests Test 10/23/19 04:10 Activated Partial Thromboplast Time 79 SEC (23-33) H Microbiology Date/Time Source Procedure Growth Status 10/21/19 20:50 Blood Blood Culture - Preliminary NO GROWTH AFTER 24 HOURS Resulted 10/21/19 20:40 Blood Blood Culture - Preliminary NO GROWTH AFTER 24 HOURS Resulted 10/21/19 00:00 Urine,Clean Catch Urine Culture - Preliminary NO GROWTH AFTER 24 HOURS Resulted Intake and Output 10/22/19 10/23/19 19:00 07:00 Intake Total 1231.436 ml 691.983 ml Output Total 2000 ml 900 ml Balance -768.564 ml -208.017 ml Intake Oral 700 ml 240 ml IV Total 531.436 ml 451.983 ml Output Urine Total 2000 ml 900 ml Objective PHYSICAL EXAMINATION: GENERAL: Patient is well-developed, well-nourished, slightly obese female, in no apparent distress. HEENT: Eyes, pupils are equal and responsive to light and accommodation. Extraocular movements are intact. NECK: Supple. No lymphadenopathy. CHEST: Lungs are clear to auscultation bilaterally without wheezes or rales. CARDIOVASCULAR: Regular rate. S1, S2 are normal without murmurs, rubs, or gallops. ABDOMEN: Soft, nontender, nondistended. Positive bowel sounds. No evidence of hepatosplenomegaly. Currently no rebound or guarding noted. EXTREMITIES: Negative for clubbing, cyanosis, or edema. RECTAL/GENITAL: Not performed. NEUROLOGIC: Cranial nerves II to XII grossly intact without focal deficits Assessment/Plan Assessment/Plan ASSESSMENT: This is a 74-year-old female. 1. Sepsis=E. Coli 2. UTI=E. Coli 3. Altered mental status. 4. Leukocytosis. 5. Elevated troponin. 6. Atrial fibrillation. 7. Diabetes type 2. 8. Hypertension. 9. Hyperthyroidism. 10. Coronary artery disease. 11. Renal failure. 12. Hypercholesterolemia. 13. Chronic lymphedema of the bilateral lower extremities. 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 Urinary Tract infection-E. Coli ABX=ceftriaxone, S/P meropenem. Infectious Disease=Dr. Mays. We will follow recommendations of Infectious Disease. 2. Sepsis=E. Coli Await culture and sensitivity result. Continue meropenem per ID. 3. Altered mental status. Resolved 4. Leukocytosis. Resolved 5. Elevated troponin. A Cardiology consultation has been obtained with Dr. Arun Barker. 6. Atrial fibrillation. Continue Coumadin as above. A Cardiology consultation has been obtained with Dr. Arun Barker. 7. Diabetes type 2. NovoLog sliding scale has been instituted. 8. Hypertension. Patient is currently hypotensive. Hold amlodipine as above. 9. Hyperthyroidism. Continue methimazole as above. 10. Coronary artery disease. Patient has elevated troponin. A Cardiology consultation has been obtained with Dr. Arun Barker. 11. Renal failure. A Nephrology consultation has been obtained with Dr. Pantera Wallace. 12. Hypercholesterolemia. Continue simvastatin as above. 13. Chronic lymphedema of bilateral lower extremities. 14. Will need CT abdomen/pelvis to R/O abscess-see ID note. 15. Await cardiac cath-see cardiology note 16. Refused V/Q scan to R/O pulmonary embolism; on heparin drip 17. Non invasive W/U vs cardiac cath Johny Blankenship MD Oct 23, 2019 11:04
[2019-10-23 12:00] VITALS: BP 131/72
--- NOTE | 2019-10-23 12:10 | NUR ---
CASE MANAGEMENT:REVIEW 10/23/19 SI: BACTEREMIA. UTI. AMI LAST TEMP SPIKE WAS YESTERDAY @ 1600 TO 100.2 99.0 60 18 131/72 96% ON RA LAST TROPONIN(+) 0.124 IS: HEPARIN GTT IV ROCEPHIN Q24 IMDUR PO QD ASA PO QD COREG PO Q12 PROTONIX Q12 NEURONTIN PO TID : TELEMETRY STATUS DCP: FROM [facility] PLAN: NON INVASIVE WORK UP BLOOD CULTURE PENDING URINE CULTURE PENDING WANTS PATIENT TO AFEBRILE FOR 24HRS PRIOR TO DISCHARGE NEED TO CONVERT HEPARIN TO ALTERNATIVE ANTICOAGULANT Addendum: 10/23/19 at 1217 by DARIUS SOLANON [phone]
--- NOTE | 2019-10-23 12:14 | Pulmonology Progress Note ---
Subjective ROS Limited/Unobtainable: No Interval Events: c/o pain after the venous doppler was done Gastrointestinal/Abdominal: Reports: other - pain in left lower abdominal quatdrant Musculoskeletal: Reports: no symptoms Allergies: Coded Allergies: CODEINE (Verified Allergy, Unknown, 10/10/19) Objective Last 24 Hour Vital Signs Date Time Temp Pulse Resp B/P (MAP) Pulse Ox O2 Delivery O2 Flow Rate FiO2 10/23/19 12:00 99.0 60 18 131/72 (91) 96 10/23/19 09:35 79 142/63 10/23/19 09:35 79 142/63 10/23/19 09:35 142/63 10/23/19 09:00 Room Air 10/23/19 08:00 98.8 79 19 142/63 (89) 97 10/23/19 07:33 81 10/23/19 04:00 54 10/23/19 04:00 98.2 74 22 150/70 (96) 96 10/23/19 00:00 98.1 82 21 146/77 (100) 98 10/23/19 00:00 71 10/22/19 21:00 Room Air 10/22/19 20:25 84 160/82 10/22/19 20:00 98.8 84 22 160/82 (108) 96 10/22/19 20:00 82 10/22/19 18:00 99.5 10/22/19 16:00 84 10/22/19 16:00 100.2 81 20 161/80 (107) 99 Intake and Output 10/22/19 10/23/19 19:00 07:00 Intake Total 1231.436 ml 691.983 ml Output Total 2000 ml 900 ml Balance -768.564 ml -208.017 ml Intake Oral 700 ml 240 ml IV Total 531.436 ml 451.983 ml Output Urine Total 2000 ml 900 ml General Appearance: WD/WN HEENT: normocephalic, atraumatic Respiratory: chest wall non-tender, lungs clear Breasts: no masses Cardiovascular: normal peripheral pulses Abdomen: normal bowel sounds, soft, non tender Genitourinary: normal external genitalia Extremities: no cyanosis Skin: no lesions Neurologic: efficiency engineer II-XII grossly normal Lymphatic: no neck adenopathy Microbiology Date/Time Source Procedure Growth Status 10/21/19 20:50 Blood Blood Culture - Preliminary NO GROWTH AFTER 24 HOURS Resulted 10/21/19 20:40 Blood Blood Culture - Preliminary NO GROWTH AFTER 24 HOURS Resulted 10/21/19 00:00 Urine,Clean Catch Urine Culture - Preliminary NO GROWTH AFTER 24 HOURS Resulted Laboratory Tests 10/23/19 04:10: Activated Partial Thromboplast Time 79H Current Medications Medications (Trade) Dose Ordered Sig/Adria Route PRN Reason Start Time Stop Time Status Last Admin Dose Admin Acetaminophen (Tylenol) 650 mg Q4H PRN ORAL fever 10/11/19 08:30 11/09/19 08:29 10/21/19 23:45 Acetaminophen (Tylenol) 650 mg Q4H PRN RECTAL Temp >100.5 10/14/19 06:30 11/13/19 06:29 Amlodipine Besylate (Norvasc) 10 mg DAILY ORAL 10/21/19 09:00 11/20/19 08:59 10/23/19 09:35 Aspirin (Ecotrin) 81 mg DAILY ORAL 10/11/19 09:00 11/25/19 08:59 10/23/19 09:35 Atorvastatin Calcium (Lipitor) 40 mg BEDTIME ORAL 10/12/19 21:00 01/10/20 20:59 10/22/19 20:24 Barium Sulfate (Readi-Cat 2) 450 ml NOW PRN ORAL Radiology Procedure 10/21/19 19:30 10/23/19 19:23 Carvedilol (Coreg) 6.25 mg EVERY 12 HOURS ORAL 10/21/19 21:00 11/20/19 20:59 10/23/19 09:35 Ceftriaxone Sodium 1 gm/ Dextrose 55 ml @ 110 mls/hr Q24H IVPB 10/17/19 16:00 10/31/19 23:59 10/22/19 16:22 Clonidine HCl (Catapres Tab) 0.1 mg Q4H PRN ORAL Blood pressure over 160 systol 10/11/19 08:30 01/08/20 08:29 10/18/19 06:26 Dextrose (Dextrose 50%) 25 ml Q30M PRN IV Hypoglycemia 10/11/19 08:30 01/08/20 11:29 Dextrose (Dextrose 50%) 50 ml Q30M PRN IV Hypoglycemia 10/11/19 08:30 01/08/20 11:29 Docusate Sodium (Colace) 100 mg THREE TIMES A DAY ORAL 10/11/19 09:00 11/09/19 17:59 10/22/19 13:12 Gabapentin (Neurontin) 200 mg THREE TIMES A DAY ORAL 10/16/19 13:00 11/09/19 12:59 10/23/19 09:34 Heparin Sodium/ Dextrose 500 ml @ 43.953 mls/ hr ADJUST PER PROTOCOL IV 10/20/19 07:30 11/16/19 03:59 10/23/19 11:02 Insulin Aspart (NovoLOG) BEFORE MEALS AND HS SUBQ 10/11/19 11:30 01/08/20 11:29 10/22/19 20:33 Isosorbide Mononitrate (Imdur) 30 mg DAILY ORAL 10/13/19 09:00 11/12/19 08:59 10/23/19 09:35 Latanoprost (Xalatan) 1 drop BEDTIME BOTH EYES 10/17/19 21:00 11/16/19 20:59 10/22/19 20:24 Morphine Sulfate (Morphine Sulfate) 2 mg Q4H PRN IVP For Pain 10/20/19 01:30 10/27/19 01:29 Nitroglycerin (Ntg) 0.4 mg Q5M PRN SL Prn Chest Pain 10/11/19 08:30 11/09/19 11:29 Ondansetron HCl (Zofran) 4 mg Q6H PRN IVP Nausea & Vomiting 10/11/19 08:30 11/09/19 08:29 Pantoprazole (Protonix) 40 mg EVERY 12 HOURS ORAL 10/14/19 21:00 11/13/19 20:59 10/23/19 09:35 Polyethylene Glycol (Miralax) 17 gm DAILYPRN PRN ORAL Constipation 10/11/19 08:30 11/09/19 08:29 Tramadol HCl (Ultram) 50 mg Q6H PRN ORAL For Pain 10/20/19 01:30 10/27/19 01:29 10/23/19 06:40 Assessment/Plan Problems: (1) Sepsis (2) Peripheral edema (3) Anasarca (4) NSTEMI (non-ST elevated myocardial infarction) (5) Renal failure (ARF), acute on chronic (6) Pyelonephritis (7) Atrial fibrillation with rapid ventricular response (8) Chronic atrial fibrillation (9) Limited mobility (10) Anemia (11) Diabetes mellitus (12) Morbid obesity Assessment/Plan low grade temp yesterday CT abdomen and pelvis reviewed asymptomatic electrolytes supplement iv abx by ID, Meropenem creatinine is stable now, renal function improving asa, plavix and b idalia cardio suggest "Noninvasive w/u vs cardiac cath when stable from ID standpoint, to evaluate CAD," sliding scale diabetic diet renal studies dvt prophylaxis. Bandar Brownlee MD Oct 23, 2019 12:14
--- NOTE | 2019-10-23 12:32 | Infectious Diseases Prog Note ---
Assessment/Plan Assessment/Plan Assessment: Severe Sepsis Probable PNA- COVID neg x2- sp VEnturi mask 8L- now at RA- ongoing fevers and GGO seen on CT chest- raises concern for COVID despite neg 2 tests CHF exacerbation (R heart failure) -10/20 CXR: Cardiomegaly. No acute disease. -10/13 CXR: Mild vascular congestion. Probable small left pleural effusion. -10/10 SARS-COV2 PCR neg -10/09 CXR: Mild interstitial congestion. Cannot rule out small left pleural effusion SARS-COV2 PCR neg E.coli UTI c/w high grade bacteremia- -10/20 u/a wbc 5-10, nit neg, leuk +3; ucx NTD Bcx NTD -u/a wbc tnct, nit neg, leuk +3; ucx >100k E.coli (R Levauin; otherwise S) -10/09 Bcx / E.coli (R levaquin; otherwise S); 10/10 Bcx 1/4 E.coli; 10/13, BCx Neg x4 Fever; recurrent Leukocytosis; SP L groin pain -10/21 CT c/abd/p wo: SOME AIR TRAPPING IN BOTH LUNGS.SMALL PERIPHERAL GROUNDGLASS DENSITIES POSTERIOR RIGHT UPPER LOBE. EARLY VIRAL PNEUMONITIS MAY PRESENT SIMILARLY. HIATAL HERNIA AND POSTOPERATIVE CHANGES OF THE STOMACH. GALLSTONES. ATROPHIC PANCREAS WITH SMALL CYST AT THE PANCREATIC TAIL. LEFT RENAL STONES. BILATERAL RENAL CYSTS. NO HYDRONEPHROSIS. DIVERTICULOSIS. SUPRAUMBILICAL FATTY VENTRAL HERNIA. ANASARCA. Targeted review of the left groin region shows no evidence of a hematoma and there is no hernia demonstrated. Mild generalized soft tissue induration noted involving the anterior pelvic wall and bilateral hip regions likely reflecting generalized anasarca. There is slight asymmetric thickening at the inferior margin of the left abdominal rectus muscle compared to the contralateral right. The thickening is isodense to the rest of the muscles so there does not appear to be an acute intramuscular hematoma. -10/17 v. duplex BLE: limited study, No DVT NSTEMI ?PE Acute encephalopathy; SP LG, worsened, now improving -renal US: Negative for hydronephrosis. Possible nonobstructive left lower pole renal calculi. Incidental finding of bilateral renal parapelvic cysts. morbid obesity HTN Dm2 hx of UTI Afib on coumadin [place] resident ([facility]) Plan: Ceftriaxone #7(abx d #14/14) for E.coli bacteremia -10/16 SP Meropenem #7 -/ SP IV Vancomycin #5 -10/10 SP cefepime #2 -/ SP Meropenem x1 -f/u cx -monitor CBC/CMP, temperatures -COVID19 neg x2; will order 3rd test and resume isolation given ongoing fevers despite almost completion of bacteremia treatment, no occult infection on CT and presence of GGO on R lung -f/u repeat Bcx x2 -Cards, renal f/u Thank you for consulting [facility]. Will continue to follow along with you. Discussed with RN. Subjective Allergies: Coded Allergies: CODEINE (Verified Allergy, Unknown, 10/10/19) Subjective Tm 100.4 at RA no leukocytosis CT with no acute findings Trop trending down- refused cardiac cath Objective Vital Signs Last 24 Hour Vital Signs Date Time Temp Pulse Resp B/P (MAP) Pulse Ox O2 Delivery O2 Flow Rate FiO2 10/23/19 12:00 99.0 60 18 131/72 (91) 96 10/23/19 09:35 79 142/63 10/23/19 09:35 79 142/63 10/23/19 09:35 142/63 10/23/19 09:00 Room Air 10/23/19 08:00 98.8 79 19 142/63 (89) 97 10/23/19 07:33 81 10/23/19 04:00 54 10/23/19 04:00 98.2 74 22 150/70 (96) 96 10/23/19 00:00 98.1 82 21 146/77 (100) 98 10/23/19 00:00 71 10/22/19 21:00 Room Air 10/22/19 20:25 84 160/82 10/22/19 20:00 98.8 84 22 160/82 (108) 96 10/22/19 20:00 82 10/22/19 18:00 99.5 10/22/19 16:00 84 10/22/19 16:00 100.2 81 20 161/80 (107) 99 Height (Feet): 5 Height (Inches): 3.00 Weight (Pounds): 323 Objective GENERAL: Patient is well-developed, well-nourished, slightly obese female, in no apparent distress. HEENT: Eyes, pupils are equal and responsive to light and accommodation. Extraocular movements are intact. NECK: Supple. No lymphadenopathy. CHEST: Lungs are clear to auscultation bilaterally without wheezes or rales. CARDIOVASCULAR: Regular rate. S1, S2 are normal without murmurs, rubs, or gallops. ABDOMEN: Soft, nontender, nondistended. Positive bowel sounds. No evidence of hepatosplenomegaly. Currently no rebound or guarding noted. EXTREMITIES: Negative for clubbing, cyanosis, or edema. Microbiology Date/Time Source Procedure Growth Status 10/21/19 20:50 Blood Blood Culture - Preliminary NO GROWTH AFTER 24 HOURS Resulted 10/21/19 20:40 Blood Blood Culture - Preliminary NO GROWTH AFTER 24 HOURS Resulted 10/21/19 00:00 Urine,Clean Catch Urine Culture - Preliminary NO GROWTH AFTER 24 HOURS Resulted Laboratory Tests Test 10/23/19 04:10 Activated Partial Thromboplast Time 79 SEC (23-33) H Current Medications Medications (Trade) Dose Ordered Sig/Adria Route PRN Reason Start Time Stop Time Status Last Admin Dose Admin Acetaminophen (Tylenol) 650 mg Q4H PRN ORAL fever 10/11/19 08:30 11/09/19 08:29 10/21/19 23:45 Acetaminophen (Tylenol) 650 mg Q4H PRN RECTAL Temp >100.5 10/14/19 06:30 11/13/19 06:29 Amlodipine Besylate (Norvasc) 10 mg DAILY ORAL 10/21/19 09:00 11/20/19 08:59 10/23/19 09:35 Aspirin (Ecotrin) 81 mg DAILY ORAL 10/11/19 09:00 11/25/19 08:59 10/23/19 09:35 Atorvastatin Calcium (Lipitor) 40 mg BEDTIME ORAL 10/12/19 21:00 01/10/20 20:59 10/22/19 20:24 Barium Sulfate (Readi-Cat 2) 450 ml NOW PRN ORAL Radiology Procedure 10/21/19 19:30 10/23/19 19:23 Carvedilol (Coreg) 6.25 mg EVERY 12 HOURS ORAL 10/21/19 21:00 11/20/19 20:59 10/23/19 09:35 Ceftriaxone Sodium 1 gm/ Dextrose 55 ml @ 110 mls/hr Q24H IVPB 10/17/19 16:00 10/31/19 23:59 10/22/19 16:22 Clonidine HCl (Catapres Tab) 0.1 mg Q4H PRN ORAL Blood pressure over 160 systol 10/11/19 08:30 01/08/20 08:29 10/18/19 06:26 Dextrose (Dextrose 50%) 25 ml Q30M PRN IV Hypoglycemia 10/11/19 08:30 01/08/20 11:29 Dextrose (Dextrose 50%) 50 ml Q30M PRN IV Hypoglycemia 10/11/19 08:30 01/08/20 11:29 Docusate Sodium (Colace) 100 mg THREE TIMES A DAY ORAL 10/11/19 09:00 11/09/19 17:59 10/22/19 13:12 Furosemide (Lasix) 20 mg EVERY 12 HOURS IV 10/23/19 12:30 11/22/19 12:29 UNV Gabapentin (Neurontin) 200 mg THREE TIMES A DAY ORAL 10/16/19 13:00 11/09/19 12:59 10/23/19 09:34 Heparin Sodium/ Dextrose 500 ml @ 43.953 mls/ hr ADJUST PER PROTOCOL IV 10/20/19 07:30 11/16/19 03:59 10/23/19 11:02 Insulin Aspart (NovoLOG) BEFORE MEALS AND HS SUBQ 10/11/19 11:30 01/08/20 11:29 10/22/19 20:33 Isosorbide Mononitrate (Imdur) 30 mg DAILY ORAL 10/13/19 09:00 11/12/19 08:59 10/23/19 09:35 Latanoprost (Xalatan) 1 drop BEDTIME BOTH EYES 10/17/19 21:00 11/16/19 20:59 10/22/19 20:24 Morphine Sulfate (Morphine Sulfate) 2 mg Q4H PRN IVP For Pain 10/20/19 01:30 10/27/19 01:29 Nitroglycerin (Ntg) 0.4 mg Q5M PRN SL Prn Chest Pain 10/11/19 08:30 11/09/19 11:29 Ondansetron HCl (Zofran) 4 mg Q6H PRN IVP Nausea & Vomiting 10/11/19 08:30 11/09/19 08:29 Pantoprazole (Protonix) 40 mg EVERY 12 HOURS ORAL 10/14/19 21:00 11/13/19 20:59 10/23/19 09:35 Polyethylene Glycol (Miralax) 17 gm DAILYPRN PRN ORAL Constipation 10/11/19 08:30 11/09/19 08:29 Tramadol HCl (Ultram) 50 mg Q6H PRN ORAL For Pain 10/20/19 01:30 10/27/19 01:29 10/23/19 06:40 Hannah Mays M.D. Oct 23, 2019 12:32
--- NOTE | 2019-10-23 12:37 | Nephrology Progress Note ---
Assessment/Plan Problem List: (1) Renal failure (ARF), acute on chronic (2) Diabetes mellitus (3) Morbid obesity (4) Chronic atrial fibrillation (5) History of DVT (deep vein thrombosis) (6) Anemia (7) NSTEMI (non-ST elevated myocardial infarction) (8) Sepsis (9) Pyelonephritis Assessment Renal failure, most likely acute on chronic. Sepsis, leukocytosis, fever, suspected 2019 novel coronavirus infection. Encephalopathy most likely toxic metabolic UTI/pyelonephritis Anemia Atrial fibrillation chronic, with fast ventricular rate. Diabetes mellitus Morbid obesity/limited mobility History of DVT Elevated troponin I Lactic acidosis Plan October 22: No chemistry panel done today. Status quo. Remains full code. Medication list reviewed. October 21: Labs reviewed. Serum creatinine stable. Patient remains full code. Continue per consultants. Urinalysis results from yesterday noted. Culture so far negative. October 20: Labs are reviewed. Creatinine 2.1. White blood cells within normal range. Blood pressure is reasonably controlled. Medication reviewed and adjusted. Coreg dose increased. UA and culture ordered. October 19: Lab reviewed. Creatinine lower. Will adjust blood pressure medication. Leukocytosis resolved. October 18: No can panel drawn today. Clinically stable. Will check labs in a.m. Continue per consultants. October 17: Serum creatinine stable lowering. Continues to improve. Full code. Continue per consultants. October 16: Serum creatinine lowering. White blood cell is lowering. Clinically improving. Continue per consultants. October 15: Serum creatinine lowered to 2.6. White blood cell count is also down to 17,000. Not much to add from renal standpoint of view. Continue per cardiology and per ID. October 14: Serum creatinine 2.8. No new changes. Continue per youth director. Leukocytosis persists. Remains on meropenem. Continue per ID. October 13: Serum creatinine continues to lower. Troponin level also declining. Continue per cardiology management. Statins was restarted by cardiology. Continue to monitor renal parameters. October 12: Serum creatinine lowering. Troponin I is also declining. Continue per cardiology management. Will continue to follow-up renal parameters and CPK level. October 11: Statins stopped due to worsening LFTs. 1 dose of Plavix given. Imdur started. Serum creatinine stable. Continue per cardiology. Continue to monitor renal parameters and CPK. Monitor troponin I and CPK Aspirin, Coreg ,nitrate for elevated troponin Antibiotics Echocardiogram results noted Kidney ultrasound results pending Monitor urine output and renal parameters Keep the blood pressure and blood sugar in check Coumadin for DVT and atrial fibrillation IV Protonix Subjective ROS Limited/Unobtainable: No Constitutional: Reports: malaise, weakness Objective Objective Last 24 Hour Vital Signs Date Time Temp Pulse Resp B/P (MAP) Pulse Ox O2 Delivery O2 Flow Rate FiO2 10/23/19 12:00 99.0 60 18 131/72 (91) 96 10/23/19 09:35 79 142/63 10/23/19 09:35 79 142/63 10/23/19 09:35 142/63 10/23/19 09:00 Room Air 10/23/19 08:00 98.8 79 19 142/63 (89) 97 10/23/19 07:33 81 10/23/19 04:00 54 10/23/19 04:00 98.2 74 22 150/70 (96) 96 10/23/19 00:00 98.1 82 21 146/77 (100) 98 10/23/19 00:00 71 10/22/19 21:00 Room Air 10/22/19 20:25 84 160/82 10/22/19 20:00 98.8 84 22 160/82 (108) 96 10/22/19 20:00 82 10/22/19 18:00 99.5 10/22/19 16:00 84 10/22/19 16:00 100.2 81 20 161/80 (107) 99 Intake and Output 10/22/19 10/23/19 19:00 07:00 Intake Total 1231.436 ml 691.983 ml Output Total 2000 ml 900 ml Balance -768.564 ml -208.017 ml Intake Oral 700 ml 240 ml IV Total 531.436 ml 451.983 ml Output Urine Total 2000 ml 900 ml Laboratory Tests 10/23/19 04:10: Activated Partial Thromboplast Time 79H No chemistry panel done today Height (Feet): 5 Height (Inches): 3.00 Weight (Pounds): 323 General Appearance: no apparent distress Cardiovascular: normal rate Respiratory/Chest: decreased breath sounds Abdomen: soft, other - Obese Objective No change Pantera Wallace MD Oct 23, 2019 12:37
[2019-10-23 16:00] VITALS: BP 127/74
[2019-10-23] MEDS: cefTRIAXone 1 GM in D5W 55 ML IVPB SCH (16:09)
--- NOTE | 2019-10-23 19:27 | Cardiology Progress Note ---
Assessment/Plan Assessment/Plan 1. Permanent atrial fibrillation, on anticoagulation. 2. Toxic-metabolic encephalopathy. 3. Urinary tract infection, question pyelonephritis. 4. Diabetes mellitus. 5. Hypertension history. 6. Morbid obesity. 7. Myocardial infarction. 8. Acute on chronic renal insufficiency. 9. Coagulopathy secondary to Coumadin. 10. Bacteremia gnr 11. Iron def 12 RV hypokinesis and enlargment 13. 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 study for now remain on heparin for afib and possible PE bp seeem ok on low dose norvasc lwo grade fever echo repeated 10/21 lv function still good rv is mildly enlarged and hypo tele reviewed afib refused v/q by pt for now remain on heparin for afib adn possible PE fever alvarado per id had ct i discussed with radiologist no evidence of hematoma noted on the ct on 10/21 i discussed with pt the result of the trop and my concern about the possibility of pe (for which she declined v/q) the possibility of underlying cad which will need to have coronary angiogram performed , she declined angiogram told me she had one done 2014 at [facility] was told normal , she understand that it was 5 years ago , but she still declines cardiac cath there were no sudden drops of hemoglobin hematoglobin relative stable for the past few days diuretic started Subjective Subjective pt now back in [facility] Objective Last 24 Hour Vital Signs Date Time Temp Pulse Resp B/P (MAP) Pulse Ox O2 Delivery O2 Flow Rate FiO2 10/23/19 16:00 97.8 82 20 127/74 (91) 96 10/23/19 15:15 67 10/23/19 12:00 99.0 60 18 131/72 (91) 96 10/23/19 11:28 62 10/23/19 09:35 79 142/63 10/23/19 09:35 79 142/63 10/23/19 09:35 142/63 10/23/19 09:00 Room Air 10/23/19 08:00 98.8 79 19 142/63 (89) 97 10/23/19 07:33 81 10/23/19 04:00 54 10/23/19 04:00 98.2 74 22 150/70 (96) 96 10/23/19 00:00 98.1 82 21 146/77 (100) 98 10/23/19 00:00 71 10/22/19 21:00 Room Air 10/22/19 20:25 84 160/82 10/22/19 20:00 98.8 84 22 160/82 (108) 96 10/22/19 20:00 82 Intake and Output 10/22/19 10/23/19 19:00 07:00 Intake Total 1231.436 ml 691.983 ml Output Total 2000 ml 900 ml Balance -768.564 ml -208.017 ml Intake Oral 700 ml 240 ml IV Total 531.436 ml 451.983 ml Output Urine Total 2000 ml 900 ml Laboratory Tests Test 10/23/19 04:10 Activated Partial Thromboplast Time 79 SEC (23-33) H Microbiology Date/Time Source Procedure Growth Status 10/21/19 20:50 Blood Blood Culture - Preliminary NO GROWTH AFTER 24 HOURS Resulted 10/21/19 20:40 Blood Blood Culture - Preliminary NO GROWTH AFTER 24 HOURS Resulted 10/21/19 00:00 Urine,Clean Catch Urine Culture - Preliminary NO GROWTH AFTER 24 HOURS Resulted Arun Barker MD Oct 23, 2019 19:27
[2019-10-23 20:00] VITALS: BP 138/63
--- NOTE | 2019-10-23 20:03 | NUR ---
NURSE NOTES: Received report from RUTHANN Peña. Patient is alert and oriented x4. Awake and lying in bed with mild pain when laying flat. Continues Heparin drip at 43.953 mls/hr. IV site is clean clear intact with no infiltration or redness. Iv flush provided. Anne catheter is intact and draining. Anne bag hung at bedside. Bed is at lowest position and locked. Call light is within reach and will continue plan of care.
--- NOTE | 2019-10-23 20:05 | NUR ---
HAND-OFF: Report given to RUTHANN Sullivan. Pt is stable, Endorsed plan of care.
[2019-10-23] MEDS: Latanoprost 0.005% Opth 2.5ml Soln BOTH EYES SCH (21:36)
[2019-10-23] MEDS: Atorvastatin 20mg tab ORAL SCH (21:38)
[2019-10-24] VITALS: BP 131/71
[2019-10-24 04:00] VITALS: BP 141/79
[2019-10-24 04:39] LABS: BASOPHILS % (AUTO) 2.2 % (0.0-2.0); EOSINOPHILS % (AUTO) 2.5 % (0.0-3.0); HEMATOCRIT 27.2 % (37.0-47.0); HEMOGLOBIN 8.3 G/DL (12.0-16.0); LYMPHOCYTES % (AUTO) 25.5 % (20.0-45.0); MEAN CORPUSCULAR VOLUME 90 FL (80-99); MONOCYTES % (AUTO) 12.6 % (1.0-10.0); NEUTROPHILS % (AUTO) 57.2 % (45.0-75.0); PLATELET COUNT 354 K/UL (150-450); RED BLOOD COUNT 3.03 M/UL (4.20-5.40); RED CELL DISTRIBUTION WIDTH 15.6 % (11.6-14.8); WHITE BLOOD COUNT 5.3 K/UL (4.8-10.8)
[2019-10-24 05:09] LABS: ALANINE AMINOTRANSFERASE 9 U/L (12-78); ALBUMIN/GLOBULIN RATIO 0.4 (1.0-2.7); ALKALINE PHOSPHATASE 94 U/L (46-116); ANION GAP 6 mmol/L (5-15); ASPARTATE AMINO TRANSFERASE 16 U/L (15-37); BILIRUBIN,TOTAL 0.3 MG/DL (0.2-1.0); BLOOD UREA NITROGEN 22 mg/dL (7-18); CALCIUM 8.7 MG/DL (8.5-10.1); CARBON DIOXIDE 29 MMOL/L (21-32); CHLORIDE 100 MMOL/L (98-107); CREATININE 2.2 MG/DL (0.55-1.30); POTASSIUM 4.2 MMOL/L (3.5-5.1); SODIUM 135 MMOL/L (136-145)
--- NOTE | 2019-10-24 05:17 | NUR ---
NURSE NOTES: Called Dr. Barker to inform him that patient has been having episodes of bradycardia as low as the 30s. Awaiting callback for any further orders.
[2019-10-24 05:51] LABS: % IRON SATURATION 9 % (15-50); IRON 19 ug/dL (50-175); TOTAL IRON BINDING CAPACITY 207 ug/dL (250-450)
[2019-10-24] MEDS: NovoLOG Insulin Flexpen SUBQ SCH ×4 (05:52→20:52)
[2019-10-24 06:01] LABS: GAMMA GLUTAMYL TRANSPEPTIDASE 53 U/L (5-85)
[2019-10-24 06:02] LABS: CHOLESTEROL 72 MG/DL (< 200); FERRITIN 85 NG/ML (8-388); HDL CHOLESTEROL 37 MG/DL (40-60); PHOSPHORUS 5.4 MG/DL (2.5-4.9); TRIGLYCERIDES 33 MG/DL (30-150)
--- NOTE | 2019-10-24 07:36 | NUR ---
HAND-OFF: Report given to RUTHANN Shahid. Patient is resting comfortably in bed. Anne catheter draining well to gravity. In stable condition.
--- NOTE | 2019-10-24 07:40 | NUR ---
NURSE NOTES: Received report from RUTHANN Sullivan. Pt awake, A/O x4, able to make needs known. Pt complains of L groin pain. No s/sx of acute distress, breathing even and unlabored in RA. IV site patent and asymptomatic. Heparin drip running as ordered 15units/kg/hr. Bed on lowest position, call light within reach. Will continue plan of care.
[2019-10-24 08:00] VITALS: BP 150/91
[2019-10-24] MEDS: Docusate 100mg cap ORAL SCH ×4 (08:53→17:03)
[2019-10-24] MEDS: Imdur 30mg tab ORAL SCH (08:54)
[2019-10-24] MEDS: Aspirin EC 81mg tab ORAL SCH (08:54)
[2019-10-24] MEDS: Carvedilol 6.25mg Tab ORAL SCH (08:54)
--- NOTE | 2019-10-24 10:45 | Infectious Diseases Prog Note ---
Assessment/Plan Assessment/Plan Assessment: Severe Sepsis Probable PNA- COVID neg x3- sp VEnturi mask 8L- now at RA- GGO seen on CT chest CHF exacerbation (R heart failure) -10/22 SARS-COV2 PCR neg -10/20 CXR: Cardiomegaly. No acute disease. -10/13 CXR: Mild vascular congestion. Probable small left pleural effusion. -10/10 SARS-COV2 PCR neg -10/09 CXR: Mild interstitial congestion. Cannot rule out small left pleural effusion SARS-COV2 PCR neg E.coli UTI c/w high grade bacteremia- -10/20 u/a wbc 5-10, nit neg, leuk +3; ucx Neg Bcx NTD -u/a wbc tnct, nit neg, leuk +3; ucx >100k E.coli (R Levauin; otherwise S) -10/09 Bcx 08/09 E.coli (R levaquin; otherwise S); 10/10 Bcx 1/ E.coli; 10/13, BCx Neg x4 Fever; recurrent; improving Leukocytosis; SP L groin pain -10/21 CT c/abd/p wo: SOME AIR TRAPPING IN BOTH LUNGS.SMALL PERIPHERAL GROUNDGLASS DENSITIES POSTERIOR RIGHT UPPER LOBE. EARLY VIRAL PNEUMONITIS MAY PRESENT SIMILARLY. HIATAL HERNIA AND POSTOPERATIVE CHANGES OF THE STOMACH. GALLSTONES. ATROPHIC PANCREAS WITH SMALL CYST AT THE PANCREATIC TAIL. LEFT RENAL STONES. BILATERAL RENAL CYSTS. NO HYDRONEPHROSIS. DIVERTICULOSIS. SUPRAUMBILICAL FATTY VENTRAL HERNIA. ANASARCA. Targeted review of the left groin region shows no evidence of a hematoma and there is no hernia demonstrated. Mild generalized soft tissue induration noted involving the anterior pelvic wall and bilateral hip regions likely reflecting generalized anasarca. There is slight asymmetric thickening at the inferior margin of the left abdominal rectus muscle compared to the contralateral right. The thickening is isodense to the rest of the muscles so there does not appear to be an acute intramuscular hematoma. -10/17 v. duplex BLE: limited study, No DVT NSTEMI ?PE Acute encephalopathy; SP LG, worsened, now improving -renal US: Negative for hydronephrosis. Possible nonobstructive left lower pole renal calculi. Incidental finding of bilateral renal parapelvic cysts. morbid obesity HTN Dm2 hx of UTI Afib on coumadin [place] resident ([facility]) Plan: -Continue to monitor off abx -10/22 SP Ceftriaxone #7 -/ SP Meropenem #7 -/ SP IV Vancomycin #5 -10/10 SP cefepime #2 -10/09 SP Meropenem x1 -f/u cx -monitor CBC/CMP, temperatures -COVID19 neg x3- ok to dc isolation -f/u repeat Bcx x2 -Cards, renal f/u Thank you for consulting [facility]. Will continue to follow along with you. Discussed with RN. Subjective Allergies: Coded Allergies: CODEINE (Verified Allergy, Unknown, 10/10/19) Subjective afebrile >36hrs no leukocytosis repeat BCx NTD at RA Objective Vital Signs Last 24 Hour Vital Signs Date Time Temp Pulse Resp B/P (MAP) Pulse Ox O2 Delivery O2 Flow Rate FiO2 10/24/19 08:54 69 150/91 10/24/19 08:54 69 150/91 10/24/19 08:54 150/91 10/24/19 08:00 98.1 69 20 150/91 (110) 98 10/24/19 04:00 97.7 90 19 141/79 (99) 97 10/24/19 04:00 71 10/24/19 00:00 98.8 56 18 131/71 (91) 97 10/24/19 00:00 55 10/23/19 23:10 66 10/23/19 21:37 88 138/63 10/23/19 21:00 Room Air 10/23/19 20:00 98.4 88 19 138/63 (88) 97 10/23/19 16:00 97.8 82 20 127/74 (91) 96 10/23/19 15:15 67 10/23/19 12:00 99.0 60 18 131/72 (91) 96 10/23/19 11:28 62 Height (Feet): 5 Height (Inches): 3.00 Weight (Pounds): 323 Objective GENERAL: Patient is well-developed, well-nourished, slightly obese female, in no apparent distress. HEENT: Eyes, pupils are equal and responsive to light and accommodation. Extraocular movements are intact. NECK: Supple. No lymphadenopathy. CHEST: Lungs are clear to auscultation bilaterally without wheezes or rales. CARDIOVASCULAR: Regular rate. S1, S2 are normal without murmurs, rubs, or gallops. ABDOMEN: Soft, nontender, nondistended. Positive bowel sounds. No evidence of hepatosplenomegaly. Currently no rebound or guarding noted. EXTREMITIES: Negative for clubbing, cyanosis, or edema. Microbiology Date/Time Source Procedure Growth Status 10/21/19 20:50 Blood Blood Culture - Preliminary NO GROWTH AFTER 48 HOURS Resulted 10/21/19 20:40 Blood Blood Culture - Preliminary NO GROWTH AFTER 48 HOURS Resulted 10/23/19 13:15 Nasopharynx Coronavirus COVID-19 PCR (YANE) - Final Complete Laboratory Tests Test 10/24/19 04:15 White Blood Count 5.3 K/UL (4.8-10.8) Red Blood Count 3.03 M/UL (4.20-5.40) L Hemoglobin 8.3 G/DL (12.0-16.0) L Hematocrit 27.2 % (37.0-47.0) L Mean Corpuscular Volume 90 FL (80-99) Mean Corpuscular Hemoglobin 27.3 PG (27.0-31.0) Mean Corpuscular Hemoglobin Concent 30.4 G/DL (32.0-36.0) L Red Cell Distribution Width 15.6 % (11.6-14.8) H Platelet Count 354 K/UL (150-450) Mean Platelet Volume 8.6 FL (6.5-10.1) Neutrophils (%) (Auto) 57.2 % (45.0-75.0) Lymphocytes (%) (Auto) 25.5 % (20.0-45.0) Monocytes (%) (Auto) 12.6 % (1.0-10.0) H Eosinophils (%) (Auto) 2.5 % (0.0-3.0) Basophils (%) (Auto) 2.2 % (0.0-2.0) H Erythrocyte Sedimentation Rate 124 MM/HR (0-30) H Activated Partial Thromboplast Time 67 SEC (23-33) H Sodium Level 135 MMOL/L (136-145) L Potassium Level 4.2 MMOL/L (3.5-5.1) Chloride Level 100 MMOL/L (98-107) Carbon Dioxide Level 29 MMOL/L (21-32) Anion Gap 6 mmol/L (5-15) Blood Urea Nitrogen 22 mg/dL (7-18) H Creatinine 2.2 MG/DL (0.55-1.30) H Estimat Glomerular Filtration Rate 26.4 mL/min (>60) Glucose Level 158 MG/DL (74-106) H Uric Acid 8.3 MG/DL (2.6-7.2) H Calcium Level 8.7 MG/DL (8.5-10.1) Phosphorus Level 5.4 MG/DL (2.5-4.9) H Magnesium Level 1.6 MG/DL (1.8-2.4) L Iron Level 19 ug/dL (50-175) L Total Iron Binding Capacity 207 ug/dL (250-450) L Percent Iron Saturation 9 % (15-50) L Unsaturated Iron Binding 188 ug/dL (112-346) Ferritin 85 NG/ML (8-388) Total Bilirubin 0.3 MG/DL (0.2-1.0) Gamma Glutamyl Transpeptidase 53 U/L (5-85) Aspartate Amino Transf (AST/SGOT) 16 U/L (15-37) Alanine Aminotransferase (ALT/SGPT) 9 U/L (12-78) L Alkaline Phosphatase 94 U/L (46-116) C-Reactive Protein, Quantitative 4.7 mg/dL (0.00-0.90) H Pro-B-Type Natriuretic Peptide 9233 pg/mL (0-125) H Total Protein 7.2 G/DL (6.4-8.2) Albumin 2.0 G/DL (3.4-5.0) L Globulin 5.2 g/dL Albumin/Globulin Ratio 0.4 (1.0-2.7) L Triglycerides Level 33 MG/DL (30-150) Cholesterol Level 72 MG/DL (< 200) LDL Cholesterol 28 mg/dL (<100) HDL Cholesterol 37 MG/DL (40-60) L Cholesterol/HDL Ratio 1.9 (3.3-4.4) L Vitamin B12 Level 506 PG/ML (193-986) Folate 12.8 NG/ML (8.6-58.9) Current Medications Medications (Trade) Dose Ordered Sig/Adria Route PRN Reason Start Time Stop Time Status Last Admin Dose Admin Acetaminophen (Tylenol) 650 mg Q4H PRN ORAL fever 6/5/20 08:30 11/09/19 08:29 10/24/19 10:10 Acetaminophen (Tylenol) 650 mg Q4H PRN RECTAL Temp >100.5 10/14/19 06:30 11/13/19 06:29 Allopurinol (allopurinoL) 300 mg DAILY ORAL 10/24/19 09:00 11/23/19 08:59 10/24/19 08:54 Amlodipine Besylate (Norvasc) 10 mg DAILY ORAL 10/21/19 09:00 11/20/19 08:59 10/24/19 08:54 Aspirin (Ecotrin) 81 mg DAILY ORAL 10/11/19 09:00 11/25/19 08:59 10/24/19 08:54 Atorvastatin Calcium (Lipitor) 40 mg BEDTIME ORAL 10/12/19 21:00 01/10/20 20:59 10/23/19 21:38 Carvedilol (Coreg) 6.25 mg EVERY 12 HOURS ORAL 10/21/19 21:00 11/20/19 20:59 10/24/19 08:54 Ceftriaxone Sodium 1 gm/ Dextrose 55 ml @ 110 mls/hr Q24H IVPB 10/17/19 16:00 10/31/19 23:59 10/23/19 16:09 Clonidine HCl (Catapres Tab) 0.1 mg Q4H PRN ORAL Blood pressure over 160 systol 10/11/19 08:30 01/08/20 08:29 10/18/19 06:26 Dextrose (Dextrose 50%) 25 ml Q30M PRN IV Hypoglycemia 10/11/19 08:30 01/08/20 11:29 Dextrose (Dextrose 50%) 50 ml Q30M PRN IV Hypoglycemia 10/11/19 08:30 01/08/20 11:29 Docusate Sodium (Colace) 100 mg THREE TIMES A DAY ORAL 10/11/19 09:00 11/09/19 17:59 10/22/19 13:12 Furosemide (Lasix) 20 mg EVERY 12 HOURS IV 10/23/19 12:30 11/22/19 12:29 10/24/19 08:54 Gabapentin (Neurontin) 200 mg THREE TIMES A DAY ORAL 10/16/19 13:00 11/09/19 12:59 10/24/19 08:54 Heparin Sodium/ Dextrose 500 ml @ 43.953 mls/ hr ADJUST PER PROTOCOL IV 10/20/19 07:30 11/16/19 03:59 10/23/19 23:32 Insulin Aspart (NovoLOG) BEFORE MEALS AND HS SUBQ 10/11/19 11:30 01/08/20 11:29 10/23/19 21:35 Isosorbide Mononitrate (Imdur) 30 mg DAILY ORAL 10/13/19 09:00 11/12/19 08:59 10/24/19 08:54 Latanoprost (Xalatan) 1 drop BEDTIME BOTH EYES 10/17/19 21:00 11/16/19 20:59 10/23/19 21:36 Morphine Sulfate (Morphine Sulfate) 2 mg Q4H PRN IVP For Pain 10/20/19 01:30 10/27/19 01:29 Nitroglycerin (Ntg) 0.4 mg Q5M PRN SL Prn Chest Pain 10/11/19 08:30 11/09/19 11:29 Ondansetron HCl (Zofran) 4 mg Q6H PRN IVP Nausea & Vomiting 10/11/19 08:30 11/09/19 08:29 Pantoprazole (Protonix) 40 mg EVERY 12 HOURS ORAL 10/14/19 21:00 11/13/19 20:59 10/24/19 08:53 Polyethylene Glycol (Miralax) 17 gm DAILYPRN PRN ORAL Constipation 10/11/19 08:30 11/09/19 08:29 Tramadol HCl (Ultram) 50 mg Q6H PRN ORAL For Pain 10/20/19 01:30 10/27/19 01:29 10/23/19 13:02 Hannah Mays M.D. Oct 24, 2019 10:45
--- NOTE | 2019-10-24 10:48 | Nephrology Progress Note ---
Assessment/Plan Problem List: (1) Renal failure (ARF), acute on chronic (2) Diabetes mellitus (3) Morbid obesity (4) Chronic atrial fibrillation (5) History of DVT (deep vein thrombosis) (6) Anemia (7) NSTEMI (non-ST elevated myocardial infarction) (8) Sepsis (9) Pyelonephritis Assessment Renal failure, most likely acute on chronic. Sepsis, leukocytosis, fever, suspected 2019 novel coronavirus infection. Encephalopathy most likely toxic metabolic UTI/pyelonephritis Anemia Atrial fibrillation chronic, with fast ventricular rate. Diabetes mellitus Morbid obesity/limited mobility History of DVT Elevated troponin I Lactic acidosis Plan October 23: Status quo. Serum creatinine stable. Mag supplement IV given. Remains anemic hemoglobin stable. Full code. October 22: No chemistry panel done today. Status quo. Remains full code. Medication list reviewed. October 21: Labs reviewed. Serum creatinine stable. Patient remains full code. Continue per consultants. Urinalysis results from yesterday noted. Culture so far negative. October 20: Labs are reviewed. Creatinine 2.1. White blood cells within normal range. Blood pressure is reasonably controlled. Medication reviewed and adjusted. Coreg dose increased. UA and culture ordered. October 19: Lab reviewed. Creatinine lower. Will adjust blood pressure medication. Leukocytosis resolved. October 18: No can panel drawn today. Clinically stable. Will check labs in a.m. Continue per consultants. October 17: Serum creatinine stable lowering. Continues to improve. Full code. Continue per consultants. October 16: Serum creatinine lowering. White blood cell is lowering. Clinically improving. Continue per consultants. October 15: Serum creatinine lowered to 2.6. White blood cell count is also down to 17,000. Not much to add from renal standpoint of view. Continue per cardiology and per ID. October 14: Serum creatinine 2.8. No new changes. Continue per inletter. Leukocytosis persists. Remains on meropenem. Continue per ID. October 13: Serum creatinine continues to lower. Troponin level also declining. Continue per cardiology management. Statins was restarted by cardiology. Continue to monitor renal parameters. October 12: Serum creatinine lowering. Troponin I is also declining. Continue per cardiology management. Will continue to follow-up renal parameters and CPK level. October 11: Statins stopped due to worsening LFTs. 1 dose of Plavix given. Imdur started. Serum creatinine stable. Continue per cardiology. Continue to monitor renal parameters and CPK. Monitor troponin I and CPK Aspirin, Coreg ,nitrate for elevated troponin Antibiotics Echocardiogram results noted Kidney ultrasound results pending Monitor urine output and renal parameters Keep the blood pressure and blood sugar in check Coumadin for DVT and atrial fibrillation IV Protonix Subjective ROS Limited/Unobtainable: No Constitutional: Reports: malaise, weakness Objective Objective Last 24 Hour Vital Signs Date Time Temp Pulse Resp B/P (MAP) Pulse Ox O2 Delivery O2 Flow Rate FiO2 10/24/19 08:54 69 150/91 10/24/19 08:54 69 150/91 10/24/19 08:54 150/91 10/24/19 08:00 98.1 69 20 150/91 (110) 98 10/24/19 04:00 97.7 90 19 141/79 (99) 97 10/24/19 04:00 71 10/24/19 00:00 98.8 56 18 131/71 (91) 97 10/24/19 00:00 55 10/23/19 23:10 66 10/23/19 21:37 88 138/63 10/23/19 21:00 Room Air 10/23/19 20:00 98.4 88 19 138/63 (88) 97 10/23/19 16:00 97.8 82 20 127/74 (91) 96 10/23/19 15:15 67 10/23/19 12:00 99.0 60 18 131/72 (91) 96 10/23/19 11:28 62 Intake and Output 10/23/19 10/24/19 19:00 07:00 Intake Total 722.436 ml 716.558 ml Output Total 1200 ml 3700 ml Balance -477.564 ml -2983.442 ml Intake Oral 140 ml 240 ml IV Total 582.436 ml 476.558 ml Output Urine Total 1200 ml 3700 ml # Voids 3 Laboratory Tests 10/24/19 04:15: White Blood Count 5.3, Red Blood Count 3.03L, Hemoglobin 8.3L, Hematocrit 27.2L , Mean Corpuscular Volume 90, Mean Corpuscular Hemoglobin 27.3, Mean Corpuscular Hemoglobin Concent 30.4L, Red Cell Distribution Width 15.6H, Platelet Count 354, Mean Platelet Volume 8.6, Neutrophils (%) (Auto) 57.2, Lymphocytes (%) (Auto) 25.5, Monocytes (%) (Auto) 12.6H, Eosinophils (%) (Auto) 2.5, Basophils (%) (Auto) 2.2H, Erythrocyte Sedimentation Rate 124H, Activated Partial Thromboplast Time 67H, Sodium Level 135L, Potassium Level 4.2, Chloride Level 100, Carbon Dioxide Level 29, Anion Gap 6, Blood Urea Nitrogen 22H, Creatinine 2.2H, Estimat Glomerular Filtration Rate 26.4, Glucose Level 158H, Uric Acid 8.3H, Calcium Level 8.7, Phosphorus Level 5.4H, Magnesium Level 1.6L, Iron Level 19L, Total Iron Binding Capacity 207L, Percent Iron Saturation 9L, Unsaturated Iron Binding 188, Ferritin 85, Total Bilirubin 0.3, Gamma Glutamyl Transpeptidase 53, Aspartate Amino Transf (AST/SGOT) 16, Alanine Aminotransferase (ALT/SGPT) 9L, Alkaline Phosphatase 94, C-Reactive Protein, Quantitative 4.7H, Pro-B-Type Natriuretic Peptide 9233H, Total Protein 7.2, Albumin 2.0L, Globulin 5.2, Albumin/Globulin Ratio 0.4L, Triglycerides Level 33 , Cholesterol Level 72, LDL Cholesterol 28, HDL Cholesterol 37L, Cholesterol/ HDL Ratio 1.9L, Vitamin B12 Level 506, Folate 12.8 Height (Feet): 5 Height (Inches): 3.00 Weight (Pounds): 323 General Appearance: no apparent distress Cardiovascular: normal rate Respiratory/Chest: decreased breath sounds Abdomen: distended, other - Obese Objective No change Pantera Wallace MD Oct 24, 2019 10:48
[2019-10-24] MEDS: Heparin 25,000u/D5W 500ml 500 ML IV SCH ×2 (11:32→22:24)
[2019-10-24 12:00] VITALS: BP 129/65
--- NOTE | 2019-10-24 12:18 | Pulmonology Progress Note ---
Subjective ROS Limited/Unobtainable: No Interval Events: c/o pain after the venous doppler was done Gastrointestinal/Abdominal: Reports: other - pain in left lower abdominal quatdrant Musculoskeletal: Reports: no symptoms Allergies: Coded Allergies: CODEINE (Verified Allergy, Unknown, 10/10/19) Objective Last 24 Hour Vital Signs Date Time Temp Pulse Resp B/P (MAP) Pulse Ox O2 Delivery O2 Flow Rate FiO2 10/24/19 09:00 Room Air 10/24/19 08:54 69 150/91 10/24/19 08:54 69 150/91 10/24/19 08:54 150/91 10/24/19 08:00 61 10/24/19 08:00 98.1 69 20 150/91 (110) 98 10/24/19 04:00 97.7 90 19 141/79 (99) 97 10/24/19 04:00 71 10/24/19 00:00 98.8 56 18 131/71 (91) 97 10/24/19 00:00 55 10/23/19 23:10 66 10/23/19 21:37 88 138/63 10/23/19 21:00 Room Air 10/23/19 20:00 98.4 88 19 138/63 (88) 97 10/23/19 16:00 97.8 82 20 127/74 (91) 96 10/23/19 15:15 67 Intake and Output 10/23/19 10/24/19 19:00 07:00 Intake Total 722.436 ml 716.558 ml Output Total 1200 ml 3700 ml Balance -477.564 ml -2983.442 ml Intake Oral 140 ml 240 ml IV Total 582.436 ml 476.558 ml Output Urine Total 1200 ml 3700 ml # Voids 3 General Appearance: WD/WN HEENT: normocephalic, atraumatic Respiratory: chest wall non-tender, lungs clear Breasts: no masses Cardiovascular: normal peripheral pulses Abdomen: normal bowel sounds, soft, non tender Genitourinary: normal external genitalia Extremities: no cyanosis Skin: no lesions Neurologic: immigration associate II-XII grossly normal Lymphatic: no neck adenopathy Microbiology Date/Time Source Procedure Growth Status 10/21/19 20:50 Blood Blood Culture - Preliminary NO GROWTH AFTER 48 HOURS Resulted 10/21/19 20:40 Blood Blood Culture - Preliminary NO GROWTH AFTER 48 HOURS Resulted 10/23/19 13:15 Nasopharynx Coronavirus COVID-19 PCR ([facility]) - Final Complete Laboratory Tests 10/24/19 04:15: White Blood Count 5.3, Red Blood Count 3.03L, Hemoglobin 8.3L, Hematocrit 27.2L , Mean Corpuscular Volume 90, Mean Corpuscular Hemoglobin 27.3, Mean Corpuscular Hemoglobin Concent 30.4L, Red Cell Distribution Width 15.6H, Platelet Count 354, Mean Platelet Volume 8.6, Neutrophils (%) (Auto) 57.2, Lymphocytes (%) (Auto) 25.5, Monocytes (%) (Auto) 12.6H, Eosinophils (%) (Auto) 2.5, Basophils (%) (Auto) 2.2H, Erythrocyte Sedimentation Rate 124H, Activated Partial Thromboplast Time 67H, Sodium Level 135L, Potassium Level 4.2, Chloride Level 100, Carbon Dioxide Level 29, Anion Gap 6, Blood Urea Nitrogen 22H, Creatinine 2.2H, Estimat Glomerular Filtration Rate 26.4, Glucose Level 158H, Uric Acid 8.3H, Calcium Level 8.7, Phosphorus Level 5.4H, Magnesium Level 1.6L, Iron Level 19L, Total Iron Binding Capacity 207L, Percent Iron Saturation 9L, Unsaturated Iron Binding 188, Ferritin 85, Total Bilirubin 0.3, Gamma Glutamyl Transpeptidase 53, Aspartate Amino Transf (AST/SGOT) 16, Alanine Aminotransferase (ALT/SGPT) 9L, Alkaline Phosphatase 94, C-Reactive Protein, Quantitative 4.7H, Pro-B-Type Natriuretic Peptide 9233H, Total Protein 7.2, Albumin 2.0L, Globulin 5.2, Albumin/Globulin Ratio 0.4L, Triglycerides Level 33 , Cholesterol Level 72, LDL Cholesterol 28, HDL Cholesterol 37L, Cholesterol/ HDL Ratio 1.9L, Vitamin B12 Level 506, Folate 12.8 Current Medications Medications (Trade) Dose Ordered Sig/Adria Route PRN Reason Start Time Stop Time Status Last Admin Dose Admin Acetaminophen (Tylenol) 650 mg Q4H PRN ORAL fever 10/11/19 08:30 11/09/19 08:29 10/24/19 10:10 Acetaminophen (Tylenol) 650 mg Q4H PRN RECTAL Temp >100.5 10/14/19 06:30 11/13/19 06:29 Allopurinol (allopurinoL) 300 mg DAILY ORAL 10/24/19 09:00 11/23/19 08:59 10/24/19 08:54 Amlodipine Besylate (Norvasc) 10 mg DAILY ORAL 10/21/19 09:00 11/20/19 08:59 10/24/19 08:54 Aspirin (Ecotrin) 81 mg DAILY ORAL 10/11/19 09:00 11/25/19 08:59 10/24/19 08:54 Atorvastatin Calcium (Lipitor) 40 mg BEDTIME ORAL 10/12/19 21:00 01/10/20 20:59 10/23/19 21:38 Carvedilol (Coreg) 6.25 mg EVERY 12 HOURS ORAL 10/21/19 21:00 11/20/19 20:59 10/24/19 08:54 Clonidine HCl (Catapres Tab) 0.1 mg Q4H PRN ORAL Blood pressure over 160 systol 10/11/19 08:30 01/08/20 08:29 10/18/19 06:26 Dextrose (Dextrose 50%) 25 ml Q30M PRN IV Hypoglycemia 10/11/19 08:30 01/08/20 11:29 Dextrose (Dextrose 50%) 50 ml Q30M PRN IV Hypoglycemia 10/11/19 08:30 01/08/20 11:29 Docusate Sodium (Colace) 100 mg THREE TIMES A DAY ORAL 10/11/19 09:00 11/09/19 17:59 10/22/19 13:12 Furosemide (Lasix) 20 mg EVERY 12 HOURS IV 10/23/19 12:30 11/22/19 12:29 10/24/19 08:54 Gabapentin (Neurontin) 200 mg THREE TIMES A DAY ORAL 10/16/19 13:00 11/09/19 12:59 10/24/19 08:54 Heparin Sodium/ Dextrose 500 ml @ 43.953 mls/ hr ADJUST PER PROTOCOL IV 10/20/19 07:30 11/16/19 03:59 10/24/19 11:32 Insulin Aspart (NovoLOG) BEFORE MEALS AND HS SUBQ 10/11/19 11:30 01/08/20 11:29 10/24/19 11:47 Isosorbide Mononitrate (Imdur) 30 mg DAILY ORAL 10/13/19 09:00 11/12/19 08:59 10/24/19 08:54 Latanoprost (Xalatan) 1 drop BEDTIME BOTH EYES 10/17/19 21:00 11/16/19 20:59 10/23/19 21:36 Morphine Sulfate (Morphine Sulfate) 2 mg Q4H PRN IVP For Pain 10/20/19 01:30 10/27/19 01:29 Nitroglycerin (Ntg) 0.4 mg Q5M PRN SL Prn Chest Pain 10/11/19 08:30 11/09/19 11:29 Ondansetron HCl (Zofran) 4 mg Q6H PRN IVP Nausea & Vomiting 10/11/19 08:30 11/09/19 08:29 Pantoprazole (Protonix) 40 mg EVERY 12 HOURS ORAL 10/14/19 21:00 11/13/19 20:59 10/24/19 08:53 Polyethylene Glycol (Miralax) 17 gm DAILYPRN PRN ORAL Constipation 10/11/19 08:30 11/09/19 08:29 Tramadol HCl (Ultram) 50 mg Q6H PRN ORAL For Pain 10/20/19 01:30 10/27/19 01:29 10/23/19 13:02 Assessment/Plan Problems: (1) Sepsis (2) Peripheral edema (3) Anasarca (4) NSTEMI (non-ST elevated myocardial infarction) (5) Renal failure (ARF), acute on chronic (6) Pyelonephritis (7) Atrial fibrillation with rapid ventricular response (8) Chronic atrial fibrillation (9) Limited mobility (10) Anemia (11) Diabetes mellitus (12) Morbid obesity Assessment/Plan urinating well on Lasix low grade temp yesterday CT abdomen and pelvis reviewed asymptomatic electrolytes supplement creatinine is stable now, renal function improving asa, plavix and b idalia cardio suggest "Noninvasive w/u vs cardiac cath when stable from ID standpoint, to evaluate CAD," sliding scale diabetic diet renal studies dvt prophylaxis. Bandar Brownlee MD Oct 24, 2019 12:18
--- NOTE | 2019-10-24 12:25 | NUR ---
DISCHARGE PLANNING DISCHARGE PLAN DISCUSSED WITH DR PEDRAZA THIS SPOT FACER ASKED CARD PLACER TO FAX CLINICALS TO [facility] IN ANTICIPATION OF POSSIBLE DISCHARGE ON MONDAY OR MONDAY
--- NOTE | 2019-10-24 13:05 | NUR ---
*-*DISCHARGE PLANNING*-* PATIENT HAS BEEN REFERRED BACK TO: [facility] P: [phone]
--- NOTE | 2019-10-24 13:15 | NUR ---
RADIOLOGY DEPT., PELVIS AND LEFT HIP IMAGED.-P.DYE
--- NOTE | 2019-10-24 13:34 | Diagnostic Imaging Report ---
EXAM: X-RAY XRAY Hip Routine 2v+ w/Pelv-L CLINICAL HISTORY: Hip pain. COMPARISON: None FINDINGS: Total of 3 views of the left hip and bony pelvis were obtained. 3 radiographs of the left hip and bony pelvis obtained. The images are essentially from the same projection however. No discrete fracture noted to the extent visualized. Alignment appears anatomic. There appears to be a Anne catheter in place. IMPRESSION: NO ACUTE FRACTURE OF THE LEFT HIP TO THE EXTENT VISUALIZED.
[2019-10-24 16:00] VITALS: BP 128/65
--- NOTE | 2019-10-24 16:48 | Internal Med Progress Note ---
Subjective Date of Service: Oct 24, 2019 Physician Name Johny Blankenship Attending Physician Aleksandr Vega MD Current Medications Medications (Trade) Dose Ordered Sig/Adria Route PRN Reason Start Time Stop Time Status Last Admin Dose Admin Acetaminophen (Tylenol) 650 mg Q4H PRN ORAL fever 10/11/19 08:30 11/09/19 08:29 10/24/19 10:10 Acetaminophen (Tylenol) 650 mg Q4H PRN RECTAL Temp >100.5 10/14/19 06:30 11/13/19 06:29 Allopurinol (allopurinoL) 300 mg DAILY ORAL 10/24/19 09:00 11/23/19 08:59 10/24/19 08:54 Amlodipine Besylate (Norvasc) 10 mg DAILY ORAL 10/21/19 09:00 11/20/19 08:59 10/24/19 08:54 Aspirin (Ecotrin) 81 mg DAILY ORAL 10/11/19 09:00 11/25/19 08:59 10/24/19 08:54 Atorvastatin Calcium (Lipitor) 40 mg BEDTIME ORAL 10/12/19 21:00 01/10/20 20:59 10/23/19 21:38 Carvedilol (Coreg) 6.25 mg EVERY 12 HOURS ORAL 10/21/19 21:00 11/20/19 20:59 10/24/19 08:54 Clonidine HCl (Catapres Tab) 0.1 mg Q4H PRN ORAL Blood pressure over 160 systol 10/11/19 08:30 01/08/20 08:29 10/18/19 06:26 Dextrose (Dextrose 50%) 25 ml Q30M PRN IV Hypoglycemia 10/11/19 08:30 01/08/20 11:29 Dextrose (Dextrose 50%) 50 ml Q30M PRN IV Hypoglycemia 10/11/19 08:30 01/08/20 11:29 Docusate Sodium (Colace) 100 mg THREE TIMES A DAY ORAL 10/11/19 09:00 11/09/19 17:59 10/22/19 13:12 Furosemide (Lasix) 20 mg EVERY 12 HOURS IV 10/23/19 12:30 11/22/19 12:29 10/24/19 08:54 Gabapentin (Neurontin) 200 mg THREE TIMES A DAY ORAL 10/16/19 13:00 11/09/19 12:59 10/24/19 13:18 Heparin Sodium/ Dextrose 500 ml @ 43.953 mls/ hr ADJUST PER PROTOCOL IV 10/20/19 07:30 11/16/19 03:59 10/24/19 11:32 Insulin Aspart (NovoLOG) BEFORE MEALS AND HS SUBQ 10/11/19 11:30 01/08/20 11:29 10/24/19 11:47 Isosorbide Mononitrate (Imdur) 30 mg DAILY ORAL 10/13/19 09:00 11/12/19 08:59 10/24/19 08:54 Latanoprost (Xalatan) 1 drop BEDTIME BOTH EYES 10/17/19 21:00 11/16/19 20:59 10/23/19 21:36 Morphine Sulfate (Morphine Sulfate) 2 mg Q4H PRN IVP For Pain 10/20/19 01:30 10/27/19 01:29 Nitroglycerin (Ntg) 0.4 mg Q5M PRN SL Prn Chest Pain 10/11/19 08:30 11/09/19 11:29 Ondansetron HCl (Zofran) 4 mg Q6H PRN IVP Nausea & Vomiting 10/11/19 08:30 11/09/19 08:29 Pantoprazole (Protonix) 40 mg EVERY 12 HOURS ORAL 10/14/19 21:00 11/13/19 20:59 10/24/19 08:53 Polyethylene Glycol (Miralax) 17 gm DAILYPRN PRN ORAL Constipation 10/11/19 08:30 11/09/19 08:29 Tramadol HCl (Ultram) 50 mg Q6H PRN ORAL For Pain 10/20/19 01:30 10/27/19 01:29 10/23/19 13:02 Allergies: Coded Allergies: CODEINE (Verified Allergy, Unknown, 10/10/19) ROS Limited/Unobtainable: No Constitutional: Reports: no symptoms HEENT: Reports: no symptoms Cardiovascular: Reports: no symptoms Respiratory: Reports: no symptoms Gastrointestinal/Abdominal: Reports: no symptoms Genitourinary: Reports: no symptoms Neurologic/Psychiatric: Reports: no symptoms Subjective 74 YO F admitted with altered mental status and fever. Now UTI and sepsis. Cover for Int Med-Dr Vega. Refused V/Q scan Objective Last Vital Signs Date Time Temp Pulse Resp B/P (MAP) Pulse Ox O2 Delivery O2 Flow Rate FiO2 10/24/19 16:00 98.1 53 20 128/65 (86) 99 10/24/19 09:00 Room Air 10/20/19 07:47 21 Laboratory Tests Test 10/24/19 04:15 White Blood Count 5.3 K/UL (4.8-10.8) Red Blood Count 3.03 M/UL (4.20-5.40) L Hemoglobin 8.3 G/DL (12.0-16.0) L Hematocrit 27.2 % (37.0-47.0) L Mean Corpuscular Volume 90 FL (80-99) Mean Corpuscular Hemoglobin 27.3 PG (27.0-31.0) Mean Corpuscular Hemoglobin Concent 30.4 G/DL (32.0-36.0) L Red Cell Distribution Width 15.6 % (11.6-14.8) H Platelet Count 354 K/UL (150-450) Mean Platelet Volume 8.6 FL (6.5-10.1) Neutrophils (%) (Auto) 57.2 % (45.0-75.0) Lymphocytes (%) (Auto) 25.5 % (20.0-45.0) Monocytes (%) (Auto) 12.6 % (1.0-10.0) H Eosinophils (%) (Auto) 2.5 % (0.0-3.0) Basophils (%) (Auto) 2.2 % (0.0-2.0) H Erythrocyte Sedimentation Rate 124 MM/HR (0-30) H Activated Partial Thromboplast Time 67 SEC (23-33) H Sodium Level 135 MMOL/L (136-145) L Potassium Level 4.2 MMOL/L (3.5-5.1) Chloride Level 100 MMOL/L (98-107) Carbon Dioxide Level 29 MMOL/L (21-32) Anion Gap 6 mmol/L (5-15) Blood Urea Nitrogen 22 mg/dL (7-18) H Creatinine 2.2 MG/DL (0.55-1.30) H Estimat Glomerular Filtration Rate 26.4 mL/min (>60) Glucose Level 158 MG/DL (74-106) H Uric Acid 8.3 MG/DL (2.6-7.2) H Calcium Level 8.7 MG/DL (8.5-10.1) Phosphorus Level 5.4 MG/DL (2.5-4.9) H Magnesium Level 1.6 MG/DL (1.8-2.4) L Iron Level 19 ug/dL (50-175) L Total Iron Binding Capacity 207 ug/dL (250-450) L Percent Iron Saturation 9 % (15-50) L Unsaturated Iron Binding 188 ug/dL (112-346) Ferritin 85 NG/ML (8-388) Total Bilirubin 0.3 MG/DL (0.2-1.0) Gamma Glutamyl Transpeptidase 53 U/L (5-85) Aspartate Amino Transf (AST/SGOT) 16 U/L (15-37) Alanine Aminotransferase (ALT/SGPT) 9 U/L (12-78) L Alkaline Phosphatase 94 U/L (46-116) C-Reactive Protein, Quantitative 4.7 mg/dL (0.00-0.90) H Pro-B-Type Natriuretic Peptide 9233 pg/mL (0-125) H Total Protein 7.2 G/DL (6.4-8.2) Albumin 2.0 G/DL (3.4-5.0) L Globulin 5.2 g/dL Albumin/Globulin Ratio 0.4 (1.0-2.7) L Triglycerides Level 33 MG/DL (30-150) Cholesterol Level 72 MG/DL (< 200) LDL Cholesterol 28 mg/dL (<100) HDL Cholesterol 37 MG/DL (40-60) L Cholesterol/HDL Ratio 1.9 (3.3-4.4) L Vitamin B12 Level 506 PG/ML (193-986) Folate 12.8 NG/ML (8.6-58.9) Microbiology Date/Time Source Procedure Growth Status 10/21/19 20:50 Blood Blood Culture - Preliminary NO GROWTH AFTER 48 HOURS Resulted 10/21/19 20:40 Blood Blood Culture - Preliminary NO GROWTH AFTER 48 HOURS Resulted 10/23/19 13:15 Nasopharynx Coronavirus COVID-19 PCR ([facility]) - Final Complete Intake and Output 10/23/19 10/24/19 19:00 07:00 Intake Total 722.436 ml 716.558 ml Output Total 1200 ml 3700 ml Balance -477.564 ml -2983.442 ml Intake Oral 140 ml 240 ml IV Total 582.436 ml 476.558 ml Output Urine Total 1200 ml 3700 ml # Voids 3 Objective PHYSICAL EXAMINATION: GENERAL: Patient is well-developed, well-nourished, slightly obese female, in no apparent distress. HEENT: Eyes, pupils are equal and responsive to light and accommodation. Extraocular movements are intact. NECK: Supple. No lymphadenopathy. CHEST: Lungs are clear to auscultation bilaterally without wheezes or rales. CARDIOVASCULAR: Regular rate. S1, S2 are normal without murmurs, rubs, or gallops. ABDOMEN: Soft, nontender, nondistended. Positive bowel sounds. No evidence of hepatosplenomegaly. Currently no rebound or guarding noted. EXTREMITIES: Negative for clubbing, cyanosis, or edema. RECTAL/GENITAL: Not performed. NEUROLOGIC: Cranial nerves II to XII grossly intact without focal deficits Assessment/Plan Assessment/Plan ASSESSMENT: This is a 74-year-old female. 1. Sepsis=E. Coli 2. UTI=E. Coli 3. Altered mental status. 4. Leukocytosis. 5. Elevated troponin. 6. Atrial fibrillation. 7. Diabetes type 2. 8. Hypertension. 9. Hyperthyroidism. 10. Coronary artery disease. 11. Renal failure. 12. Hypercholesterolemia. 13. Chronic lymphedema of the bilateral lower extremities. 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 Urinary Tract infection-E. Coli ABX=ceftriaxone, S/P meropenem. Infectious Disease=Dr. Mays. We will follow recommendations of Infectious Disease. 2. Sepsis=E. Coli Await culture and sensitivity result. Continue meropenem per ID. 3. Altered mental status. Resolved 4. Leukocytosis. Resolved 5. Elevated troponin. A Cardiology consultation has been obtained with Dr. Arun Barker. 6. Atrial fibrillation. Continue Coumadin as above. A Cardiology consultation has been obtained with Dr. Arun Barker. 7. Diabetes type 2. NovoLog sliding scale has been instituted. 8. Hypertension. Patient is currently hypotensive. Hold amlodipine as above. 9. Hyperthyroidism. Continue methimazole as above. 10. Coronary artery disease. Patient has elevated troponin. A Cardiology consultation has been obtained with Dr. Arun Barker. 11. Renal failure. A Nephrology consultation has been obtained with Dr. Pantera Wallace. 12. Hypercholesterolemia. Continue simvastatin as above. 13. Chronic lymphedema of bilateral lower extremities. 14. Will need CT abdomen/pelvis to R/O abscess-see ID note. 15. Await cardiac cath-see cardiology note 16. Refused V/Q scan to R/O pulmonary embolism; on heparin drip 17. Non invasive W/U vs cardiac cath 18. Discharge planning: [facility] Johny Blankenship MD Oct 24, 2019 16:48
--- NOTE | 2019-10-24 19:30 | NUR ---
NURSE NOTES: Dr Barker ordered to DC carvedilol r/t pt bradycardic episode last night.
--- NOTE | 2019-10-24 19:30 | NUR ---
NURSE NOTES: Received report from RUTHANN Shahid, pt. in bed awake- Appears to be A/O x's 4- able to make needs known, no signs or symptoms of acute cardiac or respiratory distress noted, bed alarm on, side rails up x's 4 and safety brakes engaged, call light within easy reach, pt. appears to be sating well on room air- no distress noted, pt. appears clean and dry, HOB elevated, Anne intact and draining to gravity, RFA 22G heparin drip running at 15U/KG/Hr 43.953mls/hr- IV patent and intact, safety measures continued, will continue with plan of care.
--- NOTE | 2019-10-24 19:40 | NUR ---
HAND-OFF: Report given to RUTHANN Moraes. Pt in stable condition, endorsed plan of care.
--- NOTE | 2019-10-24 19:50 | Cardiology Progress Note ---
Assessment/Plan Assessment/Plan 1. Permanent atrial fibrillation, on anticoagulation. 2. Toxic-metabolic encephalopathy. 3. Urinary tract infection, question pyelonephritis. 4. Diabetes mellitus. 5. Hypertension history. 6. Morbid obesity. 7. Myocardial infarction. 8. Acute on chronic renal insufficiency. 9. Coagulopathy secondary to Coumadin. 10. Bacteremia gnr 11. Iron def 12 RV hypokinesis and enlargment 13. pain in the left groin covid isolation agian trop may be related to poulm embolism or cad venous duplex neg buit tech difficult study for now remain on heparin for afib and possible PE bp seeem ok on low dose norvasc lwo grade fever echo repeated 10/21 lv function still good rv is mildly enlarged and hypo refused v/q by pt for now remain on heparin for afib adn possible PE fever alvarado per id had ct i discussed with radiologist no evidence of hematoma noted on the ct on 10/21 i discussed with pt the result of the trop and my concern about the possibility of pe (for which she declined v/q) the possibility of underlying cad which will need to have coronary angiogram performed , she declined angiogram told me she had one done 2014 at [facility] was told normal , she understand that it was 5 years ago , but she still declines cardiac cath there were no sudden drops of hemoglobin hematoglobin relative stable for the past few days diuretic started watch cr xray of hip noted tele reviewed afib some slower vr will dc coreg for now Subjective Subjective pt now back in covid isolation per rn no diarreha is contiapted eating ok had groin pain requested tyelnol only no stronger medication Objective Last 24 Hour Vital Signs Date Time Temp Pulse Resp B/P (MAP) Pulse Ox O2 Delivery O2 Flow Rate FiO2 10/24/19 16:01 68 10/24/19 16:00 98.1 53 20 128/65 (86) 99 10/24/19 12:00 97.9 60 18 129/65 (86) 97 10/24/19 11:43 61 10/24/19 09:00 Room Air 10/24/19 08:54 69 150/91 10/24/19 08:54 69 150/91 10/24/19 08:54 150/91 10/24/19 08:00 61 10/24/19 08:00 98.1 69 20 150/91 (110) 98 10/24/19 04:00 97.7 90 19 141/79 (99) 97 10/24/19 04:00 71 10/24/19 00:00 98.8 56 18 131/71 (91) 97 10/24/19 00:00 55 10/23/19 23:10 66 10/23/19 21:37 88 138/63 10/23/19 21:00 Room Air 10/23/19 20:00 98.4 88 19 138/63 (88) 97 Intake and Output 10/23/19 10/24/19 19:00 07:00 Intake Total 722.436 ml 716.558 ml Output Total 1200 ml 3700 ml Balance -477.564 ml -2983.442 ml Intake Oral 140 ml 240 ml IV Total 582.436 ml 476.558 ml Output Urine Total 1200 ml 3700 ml # Voids 3 Laboratory Tests Test 10/24/19 04:15 White Blood Count 5.3 K/UL (4.8-10.8) Red Blood Count 3.03 M/UL (4.20-5.40) L Hemoglobin 8.3 G/DL (12.0-16.0) L Hematocrit 27.2 % (37.0-47.0) L Mean Corpuscular Volume 90 FL (80-99) Mean Corpuscular Hemoglobin 27.3 PG (27.0-31.0) Mean Corpuscular Hemoglobin Concent 30.4 G/DL (32.0-36.0) L Red Cell Distribution Width 15.6 % (11.6-14.8) H Platelet Count 354 K/UL (150-450) Mean Platelet Volume 8.6 FL (6.5-10.1) Neutrophils (%) (Auto) 57.2 % (45.0-75.0) Lymphocytes (%) (Auto) 25.5 % (20.0-45.0) Monocytes (%) (Auto) 12.6 % (1.0-10.0) H Eosinophils (%) (Auto) 2.5 % (0.0-3.0) Basophils (%) (Auto) 2.2 % (0.0-2.0) H Erythrocyte Sedimentation Rate 124 MM/HR (0-30) H Activated Partial Thromboplast Time 67 SEC (23-33) H Sodium Level 135 MMOL/L (136-145) L Potassium Level 4.2 MMOL/L (3.5-5.1) Chloride Level 100 MMOL/L (98-107) Carbon Dioxide Level 29 MMOL/L (21-32) Anion Gap 6 mmol/L (5-15) Blood Urea Nitrogen 22 mg/dL (7-18) H Creatinine 2.2 MG/DL (0.55-1.30) H Estimat Glomerular Filtration Rate 26.4 mL/min (>60) Glucose Level 158 MG/DL (74-106) H Uric Acid 8.3 MG/DL (2.6-7.2) H Calcium Level 8.7 MG/DL (8.5-10.1) Phosphorus Level 5.4 MG/DL (2.5-4.9) H Magnesium Level 1.6 MG/DL (1.8-2.4) L Iron Level 19 ug/dL (50-175) L Total Iron Binding Capacity 207 ug/dL (250-450) L Percent Iron Saturation 9 % (15-50) L Unsaturated Iron Binding 188 ug/dL (112-346) Ferritin 85 NG/ML (8-388) Total Bilirubin 0.3 MG/DL (0.2-1.0) Gamma Glutamyl Transpeptidase 53 U/L (5-85) Aspartate Amino Transf (AST/SGOT) 16 U/L (15-37) Alanine Aminotransferase (ALT/SGPT) 9 U/L (12-78) L Alkaline Phosphatase 94 U/L (46-116) C-Reactive Protein, Quantitative 4.7 mg/dL (0.00-0.90) H Pro-B-Type Natriuretic Peptide 9233 pg/mL (0-125) H Total Protein 7.2 G/DL (6.4-8.2) Albumin 2.0 G/DL (3.4-5.0) L Globulin 5.2 g/dL Albumin/Globulin Ratio 0.4 (1.0-2.7) L Triglycerides Level 33 MG/DL (30-150) Cholesterol Level 72 MG/DL (< 200) LDL Cholesterol 28 mg/dL (<100) HDL Cholesterol 37 MG/DL (40-60) L Cholesterol/HDL Ratio 1.9 (3.3-4.4) L Vitamin B12 Level 506 PG/ML (193-986) Folate 12.8 NG/ML (8.6-58.9) Microbiology Date/Time Source Procedure Growth Status 10/21/19 20:50 Blood Blood Culture - Preliminary NO GROWTH AFTER 48 HOURS Resulted 10/21/19 20:40 Blood Blood Culture - Preliminary NO GROWTH AFTER 48 HOURS Resulted 10/23/19 13:15 Nasopharynx Coronavirus COVID-19 PCR ([facility]) - Final Complete Arun Barker MD Oct 24, 2019 19:50
[2019-10-24 20:00] VITALS: BP 149/84
[2019-10-24] MEDS: Atorvastatin 20mg tab ORAL SCH (20:51)
[2019-10-24] MEDS: Latanoprost 0.005% Opth 2.5ml Soln BOTH EYES SCH (20:51)
[2019-10-25] VITALS: BP 153/88
[2019-10-25 04:00] VITALS: BP 161/77
[2019-10-25 04:43] LABS: BASOPHILS % (AUTO) 1.5 % (0.0-2.0); EOSINOPHILS % (AUTO) 1.6 % (0.0-3.0); HEMATOCRIT 30.9 % (37.0-47.0); HEMOGLOBIN 9.2 G/DL (12.0-16.0); LYMPHOCYTES % (AUTO) 15.1 % (20.0-45.0); MEAN CORPUSCULAR VOLUME 90 FL (80-99); MONOCYTES % (AUTO) 9.7 % (1.0-10.0); NEUTROPHILS % (AUTO) 72.1 % (45.0-75.0); PLATELET COUNT 398 K/UL (150-450); RED BLOOD COUNT 3.41 M/UL (4.20-5.40); RED CELL DISTRIBUTION WIDTH 16.4 % (11.6-14.8); WHITE BLOOD COUNT 7.1 K/UL (4.8-10.8)
[2019-10-25 05:05] LABS: ANION GAP 9 mmol/L (5-15); BLOOD UREA NITROGEN 24 mg/dL (7-18); CALCIUM 9.5 MG/DL (8.5-10.1); CARBON DIOXIDE 29 MMOL/L (21-32); CHLORIDE 99 MMOL/L (98-107); CREATININE 2.5 MG/DL (0.55-1.30); POTASSIUM 4.3 MMOL/L (3.5-5.1); SODIUM 137 MMOL/L (136-145)
--- NOTE | 2019-10-25 05:15 | NUR ---
NURSE NOTES: Patients ptt result is 57- per pipeline pharmacy bolus Heparin 40 via IVP and rate will change to 17U/kg/hr- will carry out orders and order new ptt for 6 hours after rate is changed.
[2019-10-25] MEDS ORDERED: Heparin 25,000u/D5W 500ml 500 ML IV SCH ×3 (05:30→05:45)
--- NOTE | 2019-10-25 05:38 | NUR ---
NURSE NOTES: Made Lindsey aware that Heparin label does not state the correct units per kg/hr- it appears she tried several times but thinks she cannot fix it due to a glitch- changed rate on label- verified by Angélica Manuel RN. Addendum: 10/25/19 at 0541 by CHRIS TRIPP RN RN awaiting for Lindsey pharmacist at [facility] to put order for Heparin bolus in.
[2019-10-25] MEDS ORDERED: Heparin 5000 units/ml inj IV SCH (05:45)
[2019-10-25] MEDS: Heparin 25,000u/D5W 500ml 500 ML IV SCH ×3 (05:54→19:30)
[2019-10-25] MEDS: NovoLOG Insulin Flexpen SUBQ SCH ×4 (05:56→20:58)
--- NOTE | 2019-10-25 07:15 | NUR ---
HAND-OFF: Report given to Zehra RN- pt.remains stable and no signs of distress noted. Aware to f/u on any am abnormal labs.
[2019-10-25 08:00] VITALS: BP 132/93
[2019-10-25] MEDS: Docusate 100mg cap ORAL SCH ×3 (09:00→17:19)
[2019-10-25] MEDS: Aspirin EC 81mg tab ORAL SCH (09:42)
[2019-10-25] MEDS: Imdur 30mg tab ORAL SCH (09:43)
--- NOTE | 2019-10-25 09:47 | Nephrology Progress Note ---
Assessment/Plan Problem List: (1) Renal failure (ARF), acute on chronic (2) Diabetes mellitus (3) Morbid obesity (4) Chronic atrial fibrillation (5) History of DVT (deep vein thrombosis) (6) Anemia (7) NSTEMI (non-ST elevated myocardial infarction) (8) Sepsis (9) Pyelonephritis Assessment Renal failure, most likely acute on chronic. Sepsis, leukocytosis, fever, suspected 2019 novel coronavirus infection. Encephalopathy most likely toxic metabolic UTI/pyelonephritis Anemia Atrial fibrillation chronic, with fast ventricular rate. Diabetes mellitus Morbid obesity/limited mobility History of DVT Elevated troponin I Lactic acidosis Plan October 24: Serum creatinine rising. Patient has been on IV Lasix since October 22. Will hold IV Lasix, and check chest x-ray for evidence of CHF. Continue to monitor renal parameters. October 23: Status quo. Serum creatinine stable. Mag supplement IV given. Remains anemic hemoglobin stable. Full code. October 22: No chemistry panel done today. Status quo. Remains full code. Medication list reviewed. October 21: Labs reviewed. Serum creatinine stable. Patient remains full code. Continue per consultants. Urinalysis results from yesterday noted. Culture so far negative. October 20: Labs are reviewed. Creatinine 2.1. White blood cells within normal range. Blood pressure is reasonably controlled. Medication reviewed and adjusted. Coreg dose increased. UA and culture ordered. October 19: Lab reviewed. Creatinine lower. Will adjust blood pressure medication. Leukocytosis resolved. October 18: No can panel drawn today. Clinically stable. Will check labs in a.m. Continue per consultants. October 17: Serum creatinine stable lowering. Continues to improve. Full code. Continue per consultants. October 16: Serum creatinine lowering. White blood cell is lowering. Clinically improving. Continue per consultants. October 15: Serum creatinine lowered to 2.6. White blood cell count is also down to 17,000. Not much to add from renal standpoint of view. Continue per cardiology and per ID. October 14: Serum creatinine 2.8. No new changes. Continue per rn field. Leukocytosis persists. Remains on meropenem. Continue per ID. October 13: Serum creatinine continues to lower. Troponin level also declining. Continue per cardiology management. Statins was restarted by cardiology. Continue to monitor renal parameters. October 12: Serum creatinine lowering. Troponin I is also declining. Continue per cardiology management. Will continue to follow-up renal parameters and CPK level. October 11: Statins stopped due to worsening LFTs. 1 dose of Plavix given. Imdur started. Serum creatinine stable. Continue per cardiology. Continue to monitor renal parameters and CPK. Monitor troponin I and CPK Aspirin, Coreg ,nitrate for elevated troponin Antibiotics Echocardiogram results noted Kidney ultrasound results pending Monitor urine output and renal parameters Keep the blood pressure and blood sugar in check Coumadin for DVT and atrial fibrillation IV Protonix Subjective ROS Limited/Unobtainable: No Constitutional: Reports: malaise, weakness Objective Objective Last 24 Hour Vital Signs Date Time Temp Pulse Resp B/P (MAP) Pulse Ox O2 Delivery O2 Flow Rate FiO2 10/25/19 08:00 100.0 56 18 132/93 (106) 96 10/25/19 05:10 161/77 10/25/19 04:00 98.9 78 20 161/77 (105) 100 10/25/19 03:33 75 10/25/19 00:00 98.1 75 20 153/88 (109) 98 10/24/19 23:40 80 10/24/19 21:00 Room Air 10/24/19 20:00 97.9 76 20 149/84 (105) 98 10/24/19 19:40 72 10/24/19 16:01 68 10/24/19 16:00 98.1 53 20 128/65 (86) 99 10/24/19 12:00 97.9 60 18 129/65 (86) 97 10/24/19 11:43 61 Intake and Output 10/24/19 10/25/19 19:00 07:00 Intake Total 523.953 ml 489.343 ml Output Total 1750 ml 4150 ml Balance -1226.047 ml -3660.657 ml Intake Oral 480 ml IV Total 43.953 ml 489.343 ml Output Urine Total 1750 ml 4150 ml Current Medications Medications (Trade) Dose Ordered Sig/Adria Route PRN Reason Start Time Stop Time Status Last Admin Dose Admin Acetaminophen (Tylenol) 650 mg Q4H PRN ORAL fever 10/11/19 08:30 11/09/19 08:29 10/24/19 10:10 Acetaminophen (Tylenol) 650 mg Q4H PRN RECTAL Temp >100.5 10/14/19 06:30 11/13/19 06:29 Allopurinol (allopurinoL) 300 mg DAILY ORAL 10/24/19 09:00 11/23/19 08:59 10/24/19 08:54 Amlodipine Besylate (Norvasc) 10 mg DAILY ORAL 10/21/19 09:00 11/20/19 08:59 10/24/19 08:54 Aspirin (Ecotrin) 81 mg DAILY ORAL 10/11/19 09:00 11/25/19 08:59 10/24/19 08:54 Atorvastatin Calcium (Lipitor) 40 mg BEDTIME ORAL 10/12/19 21:00 01/10/20 20:59 10/24/19 20:51 Clonidine HCl (Catapres Tab) 0.1 mg Q4H PRN ORAL Blood pressure over 160 systol 10/11/19 08:30 01/08/20 08:29 10/25/19 05:10 Dextrose (Dextrose 50%) 25 ml Q30M PRN IV Hypoglycemia 10/11/19 08:30 01/08/20 11:29 Dextrose (Dextrose 50%) 50 ml Q30M PRN IV Hypoglycemia 10/11/19 08:30 01/08/20 11:29 Docusate Sodium (Colace) 100 mg THREE TIMES A DAY ORAL 10/11/19 09:00 11/09/19 17:59 10/22/19 13:12 Furosemide (Lasix) 20 mg EVERY 12 HOURS IV 10/23/19 12:30 11/22/19 12:29 10/24/19 20:51 Gabapentin (Neurontin) 200 mg THREE TIMES A DAY ORAL 10/16/19 13:00 11/09/19 12:59 10/24/19 17:03 Heparin Sodium/ Dextrose 500 ml @ 49.813 mls/ hr ADJUST PER PROTOCOL IV 10/25/19 05:45 11/24/19 05:29 10/25/19 05:54 Insulin Aspart (NovoLOG) BEFORE MEALS AND HS SUBQ 10/11/19 11:30 01/08/20 11:29 10/25/19 05:56 Isosorbide Mononitrate (Imdur) 30 mg DAILY ORAL 10/13/19 09:00 11/12/19 08:59 10/24/19 08:54 Latanoprost (Xalatan) 1 drop BEDTIME BOTH EYES 10/17/19 21:00 11/16/19 20:59 10/24/19 20:51 Morphine Sulfate (Morphine Sulfate) 2 mg Q4H PRN IVP For Pain 10/20/19 01:30 10/27/19 01:29 Nitroglycerin (Ntg) 0.4 mg Q5M PRN SL Prn Chest Pain 10/11/19 08:30 11/09/19 11:29 Ondansetron HCl (Zofran) 4 mg Q6H PRN IVP Nausea & Vomiting 10/11/19 08:30 11/09/19 08:29 Pantoprazole (Protonix) 40 mg EVERY 12 HOURS ORAL 10/14/19 21:00 11/13/19 20:59 10/24/19 20:51 Polyethylene Glycol (Miralax) 17 gm DAILYPRN PRN ORAL Constipation 10/11/19 08:30 11/09/19 08:29 Tramadol HCl (Ultram) 50 mg Q6H PRN ORAL For Pain 10/20/19 01:30 10/27/19 01:29 10/23/19 13:02 Laboratory Tests 10/25/19 04:00: White Blood Count 7.1, Red Blood Count 3.41L, Hemoglobin 9.2L, Hematocrit 30.9L , Mean Corpuscular Volume 90, Mean Corpuscular Hemoglobin 27.0, Mean Corpuscular Hemoglobin Concent 29.9L, Red Cell Distribution Width 16.4H, Platelet Count 398, Mean Platelet Volume 8.2, Neutrophils (%) (Auto) 72.1, Lymphocytes (%) (Auto) 15.1L, Monocytes (%) (Auto) 9.7, Eosinophils (%) (Auto) 1.6, Basophils (%) (Auto) 1.5, Activated Partial Thromboplast Time 57H, Sodium Level 137, Potassium Level 4.3, Chloride Level 99, Carbon Dioxide Level 29, Anion Gap 9, Blood Urea Nitrogen 24H, Creatinine 2.5H, Estimat Glomerular Filtration Rate 22.8, Glucose Level 189H, Calcium Level 9.5 Height (Feet): 5 Height (Inches): 3.00 Weight (Pounds): 323 General Appearance: no apparent distress Cardiovascular: other - Variable rate Respiratory/Chest: decreased breath sounds Abdomen: distended, other - Obese Objective No change Fouladian,Pantera MD Oct 25, 2019 09:47
--- NOTE | 2019-10-25 09:59 | NUR ---
PT NOTE Attempted to see patient for PT treatment. Patient c/o feeling lethargic, unable to participate with PT at this time. Will re-attempt later as schedule permits, Zehra BEAVERS notified.
--- NOTE | 2019-10-25 10:04 | NUR ---
*-*DISCHARGE PLANNING*-* PATIENT HAS BEEN REFERRED BACK TO: [facility] P: [phone] #129.[id number] [facility] ~~~~~~~~~~~~DISCHARGE OVER THE WEEKEND~~~~~~~~
--- NOTE | 2019-10-25 10:28 | NUR ---
RADIOLOGY DEPT., CHEST X-RAY DONE.-P.DYE
--- NOTE | 2019-10-25 10:48 | NUR ---
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
--- NOTE | 2019-10-25 11:18 | NUR ---
CASE MANAGEMENT:REVIEW 10/25/19 SI: BACTEREMIA. UTI. AMI COVID 19 NOT DETECTED 100.0 56 18 132/93 96% ON RA H/H-9.2/20.9 BUN+24 CR+2.5 IS: HEPARIN GTT IV ROCEPHIN Q24 IMDUR PO QD ASA PO QD COREG PO Q12 PROTONIX Q12 NEURONTIN PO TID : TELEMETRY STATUS DCP: FROM [facility] PLAN: BLOOD AND URINE CULTURES NEGATIVE WANTS PATIENT TO AFEBRILE FOR 24HRS PRIOR TO DISCHARGE
--- NOTE | 2019-10-25 11:25 | NUR ---
DISCHARGE PLANNING PATIENT IS FROM [facility] NOT READY FOR DISCHARGE TODAY: 1) FEBRILE ~ T 100.0 2) BRADYCARDIC ~ HT 56 3) REMAINS ON HEPARIN GTT 4) WORSENING RENAL FUNCTION IF READY FOR DISCHARGE OVER THE WEEKEND [facility] ACCEPT PATIENT BACK TO ROOM 129[address] T: [phone]
[2019-10-25 12:00] VITALS: BP 157/75
--- NOTE | 2019-10-25 12:35 | Pulmonology Progress Note ---
Subjective ROS Limited/Unobtainable: No Interval Events: c/o pain after the venous doppler was done Gastrointestinal/Abdominal: Reports: other - pain in left lower abdominal quatdrant Musculoskeletal: Reports: no symptoms Allergies: Coded Allergies: CODEINE (Verified Allergy, Unknown, 10/10/19) Objective Last 24 Hour Vital Signs Date Time Temp Pulse Resp B/P (MAP) Pulse Ox O2 Delivery O2 Flow Rate FiO2 10/25/19 09:43 132/93 10/25/19 09:00 56 132/93 10/25/19 08:00 100.0 56 18 132/93 (106) 96 10/25/19 05:10 161/77 10/25/19 04:00 98.9 78 20 161/77 (105) 100 10/25/19 03:33 75 10/25/19 00:00 98.1 75 20 153/88 (109) 98 10/24/19 23:40 80 10/24/19 21:00 Room Air 10/24/19 20:00 97.9 76 20 149/84 (105) 98 10/24/19 19:40 72 10/24/19 16:01 68 10/24/19 16:00 98.1 53 20 128/65 (86) 99 Intake and Output 10/24/19 10/25/19 19:00 07:00 Intake Total 523.953 ml 489.343 ml Output Total 1750 ml 4150 ml Balance -1226.047 ml -3660.657 ml Intake Oral 480 ml IV Total 43.953 ml 489.343 ml Output Urine Total 1750 ml 4150 ml General Appearance: WD/WN HEENT: normocephalic, atraumatic Respiratory: chest wall non-tender, lungs clear Breasts: no masses Cardiovascular: normal peripheral pulses Abdomen: normal bowel sounds, soft, non tender Genitourinary: normal external genitalia Extremities: no cyanosis Skin: no lesions 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 Lymphatic: no neck adenopathy Microbiology Date/Time Source Procedure Growth Status 10/23/19 13:15 Nasopharynx Coronavirus COVID-19 PCR ([facility]) - Final Complete Laboratory Tests 10/25/19 04:00: White Blood Count 7.1, Red Blood Count 3.41L, Hemoglobin 9.2L, Hematocrit 30.9L , Mean Corpuscular Volume 90, Mean Corpuscular Hemoglobin 27.0, Mean Corpuscular Hemoglobin Concent 29.9L, Red Cell Distribution Width 16.4H, Platelet Count 398, Mean Platelet Volume 8.2, Neutrophils (%) (Auto) 72.1, Lymphocytes (%) (Auto) 15.1L, Monocytes (%) (Auto) 9.7, Eosinophils (%) (Auto) 1.6, Basophils (%) (Auto) 1.5, Activated Partial Thromboplast Time 57H, Sodium Level 137, Potassium Level 4.3, Chloride Level 99, Carbon Dioxide Level 29, Anion Gap 9, Blood Urea Nitrogen 24H, Creatinine 2.5H, Estimat Glomerular Filtration Rate 22.8, Glucose Level 189H, Calcium Level 9.5 10/25/19 12:10: Activated Partial Thromboplast Time [Pending] Current Medications Medications (Trade) Dose Ordered Sig/Adria Route PRN Reason Start Time Stop Time Status Last Admin Dose Admin Acetaminophen (Tylenol) 650 mg Q4H PRN ORAL fever 10/11/19 08:30 11/09/19 08:29 10/24/19 10:10 Acetaminophen (Tylenol) 650 mg Q4H PRN RECTAL Temp >100.5 10/14/19 06:30 11/13/19 06:29 Allopurinol (allopurinoL) 300 mg DAILY ORAL 10/24/19 09:00 11/23/19 08:59 10/25/19 09:43 Amlodipine Besylate (Norvasc) 10 mg DAILY ORAL 10/21/19 09:00 11/20/19 08:59 10/24/19 08:54 Aspirin (Ecotrin) 81 mg DAILY ORAL 10/11/19 09:00 11/25/19 08:59 10/25/19 09:42 Atorvastatin Calcium (Lipitor) 40 mg BEDTIME ORAL 10/12/19 21:00 01/10/20 20:59 10/24/19 20:51 Clonidine HCl (Catapres Tab) 0.1 mg Q4H PRN ORAL Blood pressure over 160 systol 10/11/19 08:30 01/08/20 08:29 10/25/19 05:10 Dextrose (Dextrose 50%) 25 ml Q30M PRN IV Hypoglycemia 10/11/19 08:30 01/08/20 11:29 Dextrose (Dextrose 50%) 50 ml Q30M PRN IV Hypoglycemia 10/11/19 08:30 01/08/20 11:29 Docusate Sodium (Colace) 100 mg THREE TIMES A DAY ORAL 10/11/19 09:00 11/09/19 17:59 10/22/19 13:12 Gabapentin (Neurontin) 200 mg THREE TIMES A DAY ORAL 10/16/19 13:00 11/09/19 12:59 10/25/19 09:43 Heparin Sodium/ Dextrose 500 ml @ 49.813 mls/ hr ADJUST PER PROTOCOL IV 10/25/19 05:45 11/24/19 05:29 10/25/19 10:02 Insulin Aspart (NovoLOG) BEFORE MEALS AND HS SUBQ 10/11/19 11:30 01/08/20 11:29 10/25/19 11:56 Isosorbide Mononitrate (Imdur) 30 mg DAILY ORAL 10/13/19 09:00 11/12/19 08:59 10/25/19 09:43 Latanoprost (Xalatan) 1 drop BEDTIME BOTH EYES 10/17/19 21:00 11/16/19 20:59 10/24/19 20:51 Morphine Sulfate (Morphine Sulfate) 2 mg Q4H PRN IVP For Pain 10/20/19 01:30 10/27/19 01:29 Nitroglycerin (Ntg) 0.4 mg Q5M PRN SL Prn Chest Pain 10/11/19 08:30 11/09/19 11:29 Ondansetron HCl (Zofran) 4 mg Q6H PRN IVP Nausea & Vomiting 10/11/19 08:30 11/09/19 08:29 Pantoprazole (Protonix) 40 mg EVERY 12 HOURS ORAL 10/14/19 21:00 11/13/19 20:59 10/25/19 09:42 Polyethylene Glycol (Miralax) 17 gm DAILYPRN PRN ORAL Constipation 10/11/19 08:30 11/09/19 08:29 Tramadol HCl (Ultram) 50 mg Q6H PRN ORAL For Pain 10/20/19 01:30 10/27/19 01:29 10/23/19 13:02 Assessment/Plan Problems: (1) Sepsis (2) Peripheral edema (3) Anasarca (4) NSTEMI (non-ST elevated myocardial infarction) (5) Renal failure (ARF), acute on chronic (6) Pyelonephritis (7) Atrial fibrillation with rapid ventricular response (8) Chronic atrial fibrillation (9) Limited mobility (10) Anemia (11) Diabetes mellitus (12) Morbid obesity Assessment/Plan lasix was stopped today b/o increasing bun/creatinine low grade temp today, with temp of 100 asymptomatic electrolytes supplement asa, plavix and b idalia sliding scale diabetic diet renal studies dvt prophylaxis. Bandar Brownlee MD Oct 25, 2019 12:35
--- NOTE | 2019-10-25 12:39 | Infectious Diseases Prog Note ---
Assessment/Plan Assessment/Plan Assessment: Severe Sepsis Probable PNA- COVID neg x3- sp VEnturi mask 8L- now at [facility]- GGO seen on CT chest CHF exacerbation (R heart failure) -10/22 SARS-COV2 PCR neg -10/20 CXR: Cardiomegaly. No acute disease. -10/13 CXR: Mild vascular congestion. Probable small left pleural effusion. -10/10 SARS-COV2 PCR neg -10/09 CXR: Mild interstitial congestion. 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 EARLY VIRAL PNEUMONITIS MAY PRESENT SIMILARLY. HIATAL HERNIA AND POSTOPERATIVE CHANGES OF THE STOMACH. GALLSTONES. ATROPHIC PANCREAS WITH SMALL CYST AT THE PANCREATIC TAIL. LEFT RENAL STONES. BILATERAL RENAL CYSTS. NO HYDRONEPHROSIS. DIVERTICULOSIS. SUPRAUMBILICAL FATTY VENTRAL HERNIA. ANASARCA. Targeted review of the left groin region shows no evidence of a hematoma and there is no hernia demonstrated. Mild generalized soft tissue induration noted involving the anterior pelvic wall and bilateral hip regions likely reflecting generalized anasarca. There is slight asymmetric thickening at the inferior margin of the left abdominal rectus muscle compared to the contralateral right. The thickening is isodense to the rest of the muscles so there does not appear to be an acute intramuscular hematoma. -10/17 v. duplex BLE: limited study, No DVT NSTEMI ?PE Acute encephalopathy; SP LG, worsened, now improving -renal US: Negative for hydronephrosis. Possible nonobstructive left lower pole renal calculi. Incidental finding of bilateral renal parapelvic cysts. morbid obesity HTN Dm2 hx of UTI Afib on coumadin [place] resident ([facility]) Plan: -Continue to monitor off abx -10/22 SP Ceftriaxone #7 -10/16 SP Meropenem #7 -10/13 SP IV Vancomycin #5 -6/ SP cefepime #2 -/ SP Meropenem x1 -f/u cx -monitor CBC/CMP, temperatures -COVID19 neg x3- ok to dc isolation -f/u repeat Bcx x2 -Cards, renal f/u Thank you for consulting [facility]. Will continue to follow along with you. Discussed with RN. Subjective Allergies: Coded Allergies: CODEINE (Verified Allergy, Unknown, 10/10/19) Subjective afebrile >36hrs no leukocytosis repeat BCx NTD at RA Objective Vital Signs Last 24 Hour Vital Signs Date Time Temp Pulse Resp B/P (MAP) Pulse Ox O2 Delivery O2 Flow Rate FiO2 10/25/19 09:43 132/93 10/25/19 09:00 56 132/93 10/25/19 08:00 100.0 56 18 132/93 (106) 96 10/25/19 05:10 161/77 10/25/19 04:00 98.9 78 20 161/77 (105) 100 10/25/19 03:33 75 10/25/19 00:00 98.1 75 20 153/88 (109) 98 10/24/19 23:40 80 10/24/19 21:00 Room Air 10/24/19 20:00 97.9 76 20 149/84 (105) 98 10/24/19 19:40 72 10/24/19 16:01 68 10/24/19 16:00 98.1 53 20 128/65 (86) 99 Height (Feet): 5 Height (Inches): 3.00 Weight (Pounds): 323 Objective GENERAL: Patient is well-developed, well-nourished, slightly obese female, in no apparent distress. HEENT: Eyes, pupils are equal and responsive to light and accommodation. Extraocular movements are intact. NECK: Supple. No lymphadenopathy. CHEST: Lungs are clear to auscultation bilaterally without wheezes or rales. CARDIOVASCULAR: Regular rate. S1, S2 are normal without murmurs, rubs, or gallops. ABDOMEN: Soft, nontender, nondistended. Positive bowel sounds. No evidence of hepatosplenomegaly. Currently no rebound or guarding noted. EXTREMITIES: Negative for clubbing, cyanosis, or edema. Microbiology Date/Time Source Procedure Growth Status 10/23/19 13:15 Nasopharynx Coronavirus COVID-19 PCR ([facility]) - Final Complete Laboratory Tests Test 10/25/19 04:00 White Blood Count 7.1 K/UL (4.8-10.8) Red Blood Count 3.41 M/UL (4.20-5.40) L Hemoglobin 9.2 G/DL (12.0-16.0) L Hematocrit 30.9 % (37.0-47.0) L Mean Corpuscular Volume 90 FL (80-99) Mean Corpuscular Hemoglobin 27.0 PG (27.0-31.0) Mean Corpuscular Hemoglobin Concent 29.9 G/DL (32.0-36.0) L Red Cell Distribution Width 16.4 % (11.6-14.8) H Platelet Count 398 K/UL (150-450) Mean Platelet Volume 8.2 FL (6.5-10.1) Neutrophils (%) (Auto) 72.1 % (45.0-75.0) Lymphocytes (%) (Auto) 15.1 % (20.0-45.0) L Monocytes (%) (Auto) 9.7 % (1.0-10.0) Eosinophils (%) (Auto) 1.6 % (0.0-3.0) Basophils (%) (Auto) 1.5 % (0.0-2.0) Activated Partial Thromboplast Time 57 SEC (23-33) H Sodium Level 137 MMOL/L (136-145) Potassium Level 4.3 MMOL/L (3.5-5.1) Chloride Level 99 MMOL/L (98-107) Carbon Dioxide Level 29 MMOL/L (21-32) Anion Gap 9 mmol/L (5-15) Blood Urea Nitrogen 24 mg/dL (7-18) H Creatinine 2.5 MG/DL (0.55-1.30) H Estimat Glomerular Filtration Rate 22.8 mL/min (>60) Glucose Level 189 MG/DL (74-106) H Calcium Level 9.5 MG/DL (8.5-10.1) Current Medications Medications (Trade) Dose Ordered Sig/Adria Route PRN Reason Start Time Stop Time Status Last Admin Dose Admin Acetaminophen (Tylenol) 650 mg Q4H PRN ORAL fever 10/11/19 08:30 11/09/19 08:29 10/24/19 10:10 Acetaminophen (Tylenol) 650 mg Q4H PRN RECTAL Temp >100.5 10/14/19 06:30 11/13/19 06:29 Allopurinol (allopurinoL) 300 mg DAILY ORAL 10/24/19 09:00 11/23/19 08:59 10/25/19 09:43 Amlodipine Besylate (Norvasc) 10 mg DAILY ORAL 10/21/19 09:00 11/20/19 08:59 10/24/19 08:54 Aspirin (Ecotrin) 81 mg DAILY ORAL 10/11/19 09:00 11/25/19 08:59 10/25/19 09:42 Atorvastatin Calcium (Lipitor) 40 mg BEDTIME ORAL 10/12/19 21:00 01/10/20 20:59 10/24/19 20:51 Clonidine HCl (Catapres Tab) 0.1 mg Q4H PRN ORAL Blood pressure over 160 systol 10/11/19 08:30 01/08/20 08:29 10/25/19 05:10 Dextrose (Dextrose 50%) 25 ml Q30M PRN IV Hypoglycemia 10/11/19 08:30 01/08/20 11:29 Dextrose (Dextrose 50%) 50 ml Q30M PRN IV Hypoglycemia 10/11/19 08:30 01/08/20 11:29 Docusate Sodium (Colace) 100 mg THREE TIMES A DAY ORAL 10/11/19 09:00 11/09/19 17:59 10/22/19 13:12 Gabapentin (Neurontin) 200 mg THREE TIMES A DAY ORAL 10/16/19 13:00 11/09/19 12:59 10/25/19 09:43 Heparin Sodium/ Dextrose 500 ml @ 49.813 mls/ hr ADJUST PER PROTOCOL IV 10/25/19 05:45 11/24/19 05:29 10/25/19 10:02 Insulin Aspart (NovoLOG) BEFORE MEALS AND HS SUBQ 10/11/19 11:30 01/08/20 11:29 10/25/19 11:56 Isosorbide Mononitrate (Imdur) 30 mg DAILY ORAL 10/13/19 09:00 11/12/19 08:59 10/25/19 09:43 Latanoprost (Xalatan) 1 drop BEDTIME BOTH EYES 10/17/19 21:00 11/16/19 20:59 10/24/19 20:51 Morphine Sulfate (Morphine Sulfate) 2 mg Q4H PRN IVP For Pain 10/20/19 01:30 10/27/19 01:29 Nitroglycerin (Ntg) 0.4 mg Q5M PRN SL Prn Chest Pain 10/11/19 08:30 11/09/19 11:29 Ondansetron HCl (Zofran) 4 mg Q6H PRN IVP Nausea & Vomiting 10/11/19 08:30 11/09/19 08:29 Pantoprazole (Protonix) 40 mg EVERY 12 HOURS ORAL 10/14/19 21:00 11/13/19 20:59 10/25/19 09:42 Polyethylene Glycol (Miralax) 17 gm DAILYPRN PRN ORAL Constipation 10/11/19 08:30 11/09/19 08:29 Tramadol HCl (Ultram) 50 mg Q6H PRN ORAL For Pain 10/20/19 01:30 10/27/19 01:29 10/23/19 13:02 Hannah Mays M.D. Oct 25, 2019 12:39
--- NOTE | 2019-10-25 13:40 | NUR ---
*-*DISCHARGE PLANNING*-* PATIENT HAS BEEN ACCEPTED AND WILL BE DISCHARGED BACK TO: [facility] P: [phone] FOR NURSE TO NURSE REPORT. RM#129.B [facility] SET FOR WILL CALL , DISCHARGE OVER THE WEEKEND, S/W DEEPA [id number] PLACED A CALL TO PATIENT COUSIN, ABY COHN, AND PATIENTS DAUGHTER, RICH LONG, NO ANSWER, LEFT VOICE MESSAGE.
--- NOTE | 2019-10-25 14:00 | Diagnostic Imaging Report ---
Indication: Dyspnea Technique: XRAY Chest 1v Comparison: 10/21/2019 Findings: Stable cardiomegaly. Mediastinal contours are sharp. Atherosclerotic calcifications noted in the aorta. Pulmonary vasculature appears more prominent on today's exam. No definite focal consolidation. No pleural effusion or pneumothorax. There are degenerative changes in the spine. Impression: Cardiomegaly with slight increased prominence of the central pulmonary vasculature which may signal development of mild congestive changes. No overt alveolar edema/CHF.
[2019-10-25 16:00] VITALS: BP 139/76
[2019-10-25] MEDS ORDERED: NS 275ml ONE (16:57)
--- NOTE | 2019-10-25 18:17 | Cardiology Progress Note ---
Assessment/Plan Assessment/Plan 1. Permanent atrial fibrillation, on anticoagulation. 2. Toxic-metabolic encephalopathy. 3. Urinary tract infection, question pyelonephritis. 4. Diabetes mellitus. 5. Hypertension history. 6. Morbid obesity. 7. Myocardial infarction. 8. Acute on chronic renal insufficiency. 9. Coagulopathy secondary to Coumadin. 10. Bacteremia gnr 11. Iron def 12 RV hypokinesis and enlargment 13. pain in the left groin covid isolation agian trop may be related to poulm embolism or cad venous duplex neg buit tech difficult study for now remain on heparin for afib and possible PE bp seeem ok on low dose norvasc lwo grade fever echo repeated 10/21 lv function still good rv is mildly enlarged and hypo refused v/q by pt for now remain on heparin for afib adn possible PE fever alvarado per id had ct i discussed with radiologist no evidence of hematoma noted on the ct on 10/21 i discussed with pt the result of the trop and my concern about the possibility of pe (for which she declined v/q) the possibility of underlying cad which will need to have coronary angiogram performed , she declined angiogram told me she had one done 2014 at [facility] was told normal , she understand that it was 5 years ago , but she still declines cardiac cath there were no sudden drops of hemoglobin hematoglobin relative stable for the past few days diuretic started watch cr xray of hip noted tele reviewed afib some slower vr will dc coreg for now Subjective Subjective pt now back in covid isolation per rn no diarreha is contiapted eating ok had groin pain requested tyelnol only no stronger medication Objective Last 24 Hour Vital Signs Date Time Temp Pulse Resp B/P (MAP) Pulse Ox O2 Delivery O2 Flow Rate FiO2 10/25/19 16:00 97.7 76 17 139/76 (97) 98 10/25/19 15:34 59 10/25/19 13:32 97.7 10/25/19 12:00 101.1 70 19 157/75 (102) 96 10/25/19 11:50 55 10/25/19 09:43 132/93 10/25/19 09:00 56 132/93 10/25/19 09:00 Room Air 10/25/19 08:00 100.0 56 18 132/93 (106) 96 10/25/19 07:45 61 10/25/19 05:10 161/77 10/25/19 04:00 98.9 78 20 161/77 (105) 100 10/25/19 03:33 75 10/25/19 00:00 98.1 75 20 153/88 (109) 98 10/24/19 23:40 80 10/24/19 21:00 Room Air 10/24/19 20:00 97.9 76 20 149/84 (105) 98 10/24/19 19:40 72 Intake and Output 10/24/19 10/25/19 19:00 07:00 Intake Total 523.953 ml 489.343 ml Output Total 1750 ml 4150 ml Balance -1226.047 ml -3660.657 ml Intake Oral 480 ml IV Total 43.953 ml 489.343 ml Output Urine Total 1750 ml 4150 ml Laboratory Tests Test 10/25/19 04:00 10/25/19 12:10 White Blood Count 7.1 K/UL (4.8-10.8) Red Blood Count 3.41 M/UL (4.20-5.40) L Hemoglobin 9.2 G/DL (12.0-16.0) L Hematocrit 30.9 % (37.0-47.0) L Mean Corpuscular Volume 90 FL (80-99) Mean Corpuscular Hemoglobin 27.0 PG (27.0-31.0) Mean Corpuscular Hemoglobin Concent 29.9 G/DL (32.0-36.0) L Red Cell Distribution Width 16.4 % (11.6-14.8) H Platelet Count 398 K/UL (150-450) Mean Platelet Volume 8.2 FL (6.5-10.1) Neutrophils (%) (Auto) 72.1 % (45.0-75.0) Lymphocytes (%) (Auto) 15.1 % (20.0-45.0) L Monocytes (%) (Auto) 9.7 % (1.0-10.0) Eosinophils (%) (Auto) 1.6 % (0.0-3.0) Basophils (%) (Auto) 1.5 % (0.0-2.0) Activated Partial Thromboplast Time 57 SEC (23-33) H 69 SEC (23-33) H Sodium Level 137 MMOL/L (136-145) Potassium Level 4.3 MMOL/L (3.5-5.1) Chloride Level 99 MMOL/L (98-107) Carbon Dioxide Level 29 MMOL/L (21-32) Anion Gap 9 mmol/L (5-15) Blood Urea Nitrogen 24 mg/dL (7-18) H Creatinine 2.5 MG/DL (0.55-1.30) H Estimat Glomerular Filtration Rate 22.8 mL/min (>60) Glucose Level 189 MG/DL (74-106) H Calcium Level 9.5 MG/DL (8.5-10.1) Microbiology Date/Time Source Procedure Growth Status 10/23/19 13:15 Nasopharynx Coronavirus COVID-19 PCR ([facility]) - Final Complete Arun Barker MD Oct 25, 2019 18:17
--- NOTE | 2019-10-25 18:32 | Cardiology Progress Note ---
Assessment/Plan Assessment/Plan 1. Permanent atrial fibrillation, on anticoagulation. 2. Toxic-metabolic encephalopathy. 3. Urinary tract infection, question pyelonephritis. 4. Diabetes mellitus. 5. Hypertension history. 6. Morbid obesity. 7. Myocardial infarction. 8. Acute on chronic renal insufficiency. 9. Coagulopathy secondary to Coumadin. 10. Bacteremia gnr 11. Iron def 12 RV hypokinesis and enlargment 13. pain in the left groin 14. 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 for now remain on heparin for afib and possible PE bp seeem ok on low dose norvasc lwo grade fever echo repeated 10/21 lv function still good rv is mildly enlarged and hypo refused v/q by pt for now remain on heparin for afib adn possible PE fever alvarado per id had ct i discussed with radiologist no evidence of hematoma noted on the ct on 10/21 i discussed with pt the result of the trop and my concern about the possibility of pe (for which she declined v/q) the possibility of underlying cad which will need to have coronary angiogram performed , she declined angiogram told me she had one done 2014 at [facility] was told normal , she understand that it was 5 years ago , but she still declines cardiac cath there were no sudden drops of hemoglobin hematoglobin relative stable for the past few days now off iuritic due to increase cr xray of hip noted tele reviewed afib vr seem ok now off coreg since 10/22 Subjective Subjective pt now back in covid isolation Objective Last 24 Hour Vital Signs Date Time Temp Pulse Resp B/P (MAP) Pulse Ox O2 Delivery O2 Flow Rate FiO2 10/25/19 16:00 97.7 76 17 139/76 (97) 98 10/25/19 15:34 59 10/25/19 13:32 97.7 10/25/19 12:00 101.1 70 19 157/75 (102) 96 10/25/19 11:50 55 10/25/19 09:43 132/93 10/25/19 09:00 56 132/93 10/25/19 09:00 Room Air 10/25/19 08:00 100.0 56 18 132/93 (106) 96 10/25/19 07:45 61 10/25/19 05:10 161/77 6/19/20 04:00 98.9 78 20 161/77 (105) 100 10/25/19 03:33 75 10/25/19 00:00 98.1 75 20 153/88 (109) 98 10/24/19 23:40 80 10/24/19 21:00 Room Air 10/24/19 20:00 97.9 76 20 149/84 (105) 98 10/24/19 19:40 72 Intake and Output 10/24/19 10/25/19 19:00 07:00 Intake Total 523.953 ml 489.343 ml Output Total 1750 ml 4150 ml Balance -1226.047 ml -3660.657 ml Intake Oral 480 ml IV Total 43.953 ml 489.343 ml Output Urine Total 1750 ml 4150 ml Laboratory Tests Test 10/25/19 04:00 10/25/19 12:10 White Blood Count 7.1 K/UL (4.8-10.8) Red Blood Count 3.41 M/UL (4.20-5.40) L Hemoglobin 9.2 G/DL (12.0-16.0) L Hematocrit 30.9 % (37.0-47.0) L Mean Corpuscular Volume 90 FL (80-99) Mean Corpuscular Hemoglobin 27.0 PG (27.0-31.0) Mean Corpuscular Hemoglobin Concent 29.9 G/DL (32.0-36.0) L Red Cell Distribution Width 16.4 % (11.6-14.8) H Platelet Count 398 K/UL (150-450) Mean Platelet Volume 8.2 FL (6.5-10.1) Neutrophils (%) (Auto) 72.1 % (45.0-75.0) Lymphocytes (%) (Auto) 15.1 % (20.0-45.0) L Monocytes (%) (Auto) 9.7 % (1.0-10.0) Eosinophils (%) (Auto) 1.6 % (0.0-3.0) Basophils (%) (Auto) 1.5 % (0.0-2.0) Activated Partial Thromboplast Time 57 SEC (23-33) H 69 SEC (23-33) H Sodium Level 137 MMOL/L (136-145) Potassium Level 4.3 MMOL/L (3.5-5.1) Chloride Level 99 MMOL/L (98-107) Carbon Dioxide Level 29 MMOL/L (21-32) Anion Gap 9 mmol/L (5-15) Blood Urea Nitrogen 24 mg/dL (7-18) H Creatinine 2.5 MG/DL (0.55-1.30) H Estimat Glomerular Filtration Rate 22.8 mL/min (>60) Glucose Level 189 MG/DL (74-106) H Calcium Level 9.5 MG/DL (8.5-10.1) Microbiology Date/Time Source Procedure Growth Status 10/23/19 13:15 Nasopharynx Coronavirus COVID-19 PCR ([facility]) - Final Complete Arun Barker MD Oct 25, 2019 18:32
--- NOTE | 2019-10-25 19:20 | NUR ---
NURSE NOTES: report given by RUTHANN Watson- assignment changed report given to RUTHANN Santos.
--- NOTE | 2019-10-25 19:32 | NUR ---
HAND-OFF: Report given to RUTHANN Moraes. Pt in stable condition, endorsed plan of care.
[2019-10-25 20:00] VITALS: BP 123/66
--- NOTE | 2019-10-25 20:00 | NUR ---
NURSE NOTES: RECEIVED PATIENT LYING IN BED, EYES CLOSED, AWAKENED TO NAME, DENIES PAIN. NO SIGNS AND SYMPTOMS OF ACUTE CARDIO RESPIRATORY DISTRESS/SHORTNESS OF BREATH, DENIES CHEST PAIN. IV INTACT TO RIGHT FOREARM/GAUGE 22, TOLERATING HEPARIN DRIP AT 17 UNITS/KG/HR, NEXT PTT 6/2/0/20 AT 0400, NO REDNESS/SWELLING NOTED TO SITE. ABDOMEN OBESE/NON TENDER/AUDIBLE BOWEL SOUNDS, NO REPORT OF N/V/D. ELDRIDGE CATHETER INTACT/PATENT, DRAINING YELLOW URINE VIA GRAVITY, NO SEDEMENT NOTED. FALL PRECAUTIONS OBSERVED AT ALL TIMES; SIDE RAILS UP X3/BED IN LOWEST POSITION FOR SAFETY, ENCOURAGED PATIENT TO UTILIZE CALL LIGHT FOR ASSISTANCE, VERBALIZED UNDERSTANDING. CONTINUE WITH CURRENT PLAN OF CARE. NAD.
--- NOTE | 2019-10-25 20:03 | Internal Med Progress Note ---
Subjective Physician Name Aleksandr Vega Attending Physician Aleksandr Vega MD Current Medications Medications (Trade) Dose Ordered Sig/Adria Route PRN Reason Start Time Stop Time Status Last Admin Dose Admin Acetaminophen (Tylenol) 650 mg Q4H PRN ORAL fever 10/11/19 08:30 11/09/19 08:29 10/25/19 13:02 Acetaminophen (Tylenol) 650 mg Q4H PRN RECTAL Temp >100.5 10/14/19 06:30 11/13/19 06:29 Allopurinol (allopurinoL) 300 mg DAILY ORAL 10/24/19 09:00 11/23/19 08:59 10/25/19 09:43 Amlodipine Besylate (Norvasc) 10 mg DAILY ORAL 10/21/19 09:00 11/20/19 08:59 10/24/19 08:54 Aspirin (Ecotrin) 81 mg DAILY ORAL 10/11/19 09:00 11/25/19 08:59 10/25/19 09:42 Atorvastatin Calcium (Lipitor) 40 mg BEDTIME ORAL 10/12/19 21:00 01/10/20 20:59 10/24/19 20:51 Clonidine HCl (Catapres Tab) 0.1 mg Q4H PRN ORAL Blood pressure over 160 systol 10/11/19 08:30 01/08/20 08:29 10/25/19 05:10 Dextrose (Dextrose 50%) 25 ml Q30M PRN IV Hypoglycemia 10/11/19 08:30 01/08/20 11:29 Dextrose (Dextrose 50%) 50 ml Q30M PRN IV Hypoglycemia 10/11/19 08:30 01/08/20 11:29 Docusate Sodium (Colace) 100 mg THREE TIMES A DAY ORAL 10/11/19 09:00 11/09/19 17:59 10/22/19 13:12 Gabapentin (Neurontin) 200 mg THREE TIMES A DAY ORAL 10/16/19 13:00 11/09/19 12:59 10/25/19 17:19 Heparin Sodium/ Dextrose 500 ml @ 49.813 mls/ hr ADJUST PER PROTOCOL IV 10/25/19 05:45 11/24/19 05:29 10/25/19 19:30 Insulin Aspart (NovoLOG) BEFORE MEALS AND HS SUBQ 10/11/19 11:30 01/08/20 11:29 10/25/19 11:56 Isosorbide Mononitrate (Imdur) 30 mg DAILY ORAL 10/13/19 09:00 11/12/19 08:59 10/25/19 09:43 Latanoprost (Xalatan) 1 drop BEDTIME BOTH EYES 10/17/19 21:00 11/16/19 20:59 10/24/19 20:51 Morphine Sulfate (Morphine Sulfate) 2 mg Q4H PRN IVP For Pain 10/20/19 01:30 10/27/19 01:29 Nitroglycerin (Ntg) 0.4 mg Q5M PRN SL Prn Chest Pain 10/11/19 08:30 11/09/19 11:29 Ondansetron HCl (Zofran) 4 mg Q6H PRN IVP Nausea & Vomiting 10/11/19 08:30 11/09/19 08:29 Pantoprazole (Protonix) 40 mg EVERY 12 HOURS ORAL 10/14/19 21:00 11/13/19 20:59 10/25/19 09:42 Polyethylene Glycol (Miralax) 17 gm DAILYPRN PRN ORAL Constipation 10/11/19 08:30 11/09/19 08:29 Tramadol HCl (Ultram) 50 mg Q6H PRN ORAL For Pain 10/20/19 01:30 10/27/19 01:29 10/23/19 13:02 Allergies: Coded Allergies: CODEINE (Verified Allergy, Unknown, 10/10/19) Subjective awake, alert, responsive, denies any chest pain or shortness of breath, denies any fever or chills, Denies lower abdominal pain. Hgb: 9.2, spike fever of 101.1. Objective Last Vital Signs Date Time Temp Pulse Resp B/P (MAP) Pulse Ox O2 Delivery O2 Flow Rate FiO2 10/25/19 16:00 97.7 76 17 139/76 (97) 98 10/25/19 09:00 Room Air 10/20/19 07:47 21 Laboratory Tests Test 10/25/19 04:00 10/25/19 12:10 White Blood Count 7.1 K/UL (4.8-10.8) Red Blood Count 3.41 M/UL (4.20-5.40) L Hemoglobin 9.2 G/DL (12.0-16.0) L Hematocrit 30.9 % (37.0-47.0) L Mean Corpuscular Volume 90 FL (80-99) Mean Corpuscular Hemoglobin 27.0 PG (27.0-31.0) Mean Corpuscular Hemoglobin Concent 29.9 G/DL (32.0-36.0) L Red Cell Distribution Width 16.4 % (11.6-14.8) H Platelet Count 398 K/UL (150-450) Mean Platelet Volume 8.2 FL (6.5-10.1) Neutrophils (%) (Auto) 72.1 % (45.0-75.0) Lymphocytes (%) (Auto) 15.1 % (20.0-45.0) L Monocytes (%) (Auto) 9.7 % (1.0-10.0) Eosinophils (%) (Auto) 1.6 % (0.0-3.0) Basophils (%) (Auto) 1.5 % (0.0-2.0) Activated Partial Thromboplast Time 57 SEC (23-33) H 69 SEC (23-33) H Sodium Level 137 MMOL/L (136-145) Potassium Level 4.3 MMOL/L (3.5-5.1) Chloride Level 99 MMOL/L (98-107) Carbon Dioxide Level 29 MMOL/L (21-32) Anion Gap 9 mmol/L (5-15) Blood Urea Nitrogen 24 mg/dL (7-18) H Creatinine 2.5 MG/DL (0.55-1.30) H Estimat Glomerular Filtration Rate 22.8 mL/min (>60) Glucose Level 189 MG/DL (74-106) H Calcium Level 9.5 MG/DL (8.5-10.1) Microbiology Date/Time Source Procedure Growth Status 10/23/19 13:15 Nasopharynx Coronavirus COVID-19 PCR ([facility]ANE) - Final Complete Intake and Output 10/24/19 10/25/19 19:00 07:00 Intake Total 523.953 ml 489.343 ml Output Total 1750 ml 4150 ml Balance -1226.047 ml -3660.657 ml Intake Oral 480 ml IV Total 43.953 ml 489.343 ml Output Urine Total 1750 ml 4150 ml Objective General: No acute distress, awake and alert HEENT: NCAT, sclera anicteric, PERRL, EOMI. Neck: Supple, no significant jugular venous distention, Lungs: Fair inspiratory effort, decreased air at the bases no Wheeze or Rales. Heart: Regular rate and rhythm, normal S1/S2, no murmurs/gallops Abdomen: soft, not tender, nondistended. Normoactive bowel sounds, morbid obesity. / Rectal: Refused and deferred. Extremities: No Cyanosis , clubbing, or LE's edema. Neuro: A&O x 3, Able to move all extremities Skin: warm, no rash, Psych: Normal mood and affect Assessment/Plan Assessment/Plan ASSESSMENT: This is a 74-year-old female. 1. Sepsis / E. coli Bacteremia most likely due to UTI. 2. Probable pyelonephritis. 3. Altered mental status most likely due to toxic Metabolic Encephalopathy. 4. Leukocytosis. 5. Elevated troponin. 6. Permanent atrial fibrillation with RVR, on anticoagulation. 7. Diabetes type 2. 8. Hypertension. 9. Hyperthyroidism. 10. Coronary artery disease. 11. Renal failure. 12. Hypercholesterolemia. 13. Chronic lymphedema of the bilateral lower extremities. TREATMENT: 1. Fever/pyelonephritis. Infectious Disease consultation has been obtained with Dr. Mays. 2. Altered mental status / Toxic metabolic encephalopathy secondary to pyelonephritis/sepsis as above. 3. Leukocytosis. 4. Elevated troponin. A Cardiology consultation has been obtained with Dr. Arun Barker. 5. Atrial fibrillation. Continue Coumadin as above. A Cardiology consultation has been obtained with Dr. Arun Barker. 6. Diabetes type 2. NovoLog sliding scale has been instituted. 7. Hypertension. Patient is currently hypotensive. Hold amlodipine as above. 8. Hyperthyroidism. Continue methimazole as above. 9. Coronary artery disease. Patient has elevated troponin. A Cardiology consultation has been obtained with Dr. Arun Barker. 10. Renal failure. A Nephrology consultation has been obtained with Dr. Pantera Wallace. 11. Hypercholesterolemia. Continue simvastatin as above. 12. Chronic lymphedema of bilateral lower extremities. Off abx On Heparin Aleksandr Blanchard MD Oct 25, 2019 20:03
[2019-10-25] MEDS: Atorvastatin 20mg tab ORAL SCH (20:54)
[2019-10-25] MEDS: Latanoprost 0.005% Opth 2.5ml Soln BOTH EYES SCH (20:55)
[2019-10-26] VITALS: BP 166/80
[2019-10-26 04:00] VITALS: BP 146/64
[2019-10-26 04:50] LABS: BASOPHILS % (AUTO) 1.9 % (0.0-2.0); EOSINOPHILS % (AUTO) 1.7 % (0.0-3.0); HEMATOCRIT 28.7 % (37.0-47.0); HEMOGLOBIN 8.8 G/DL (12.0-16.0); LYMPHOCYTES % (AUTO) 24.6 % (20.0-45.0); MEAN CORPUSCULAR VOLUME 87 FL (80-99); MONOCYTES % (AUTO) 11.8 % (1.0-10.0); NEUTROPHILS % (AUTO) 60.1 % (45.0-75.0); PLATELET COUNT 356 K/UL (150-450); RED BLOOD COUNT 3.29 M/UL (4.20-5.40); RED CELL DISTRIBUTION WIDTH 15.3 % (11.6-14.8); WHITE BLOOD COUNT 5.6 K/UL (4.8-10.8)
[2019-10-26 05:26] LABS: ALANINE AMINOTRANSFERASE 10 U/L (12-78); ALBUMIN/GLOBULIN RATIO 0.4 (1.0-2.7); ALKALINE PHOSPHATASE 107 U/L (46-116); ANION GAP 7 mmol/L (5-15); ASPARTATE AMINO TRANSFERASE 17 U/L (15-37); BILIRUBIN,TOTAL 0.3 MG/DL (0.2-1.0); BLOOD UREA NITROGEN 23 mg/dL (7-18); CALCIUM 9.1 MG/DL (8.5-10.1); CARBON DIOXIDE 29 MMOL/L (21-32); CHLORIDE 101 MMOL/L (98-107); CREATININE 2.5 MG/DL (0.55-1.30); PHOSPHORUS 5.2 MG/DL (2.5-4.9); POTASSIUM 3.9 MMOL/L (3.5-5.1); SODIUM 137 MMOL/L (136-145)
[2019-10-26] MEDS ORDERED: Heparin 25,000u/D5W 500ml 500 ML IV SCH ×2 (05:45→11:45)
[2019-10-26] MEDS: NovoLOG Insulin Flexpen SUBQ SCH ×4 (06:30→21:08)
--- NOTE | 2019-10-26 06:30 | NUR ---
NURSE NOTES: RESTED WELL, NO SIGNIFICANT CHANGE OF CONDITION NOTED THROUGHOUT THE NIGHT. SAFETY MAINTAINED. NAD.
--- NOTE | 2019-10-26 07:56 | NUR ---
NURSE NOTES: Patient received from Danielle MCCOY. Patient stable AOx4 with no complaints and no s/sx of pain or distress. RR even and unlabored on RA. Eating breakfast at this time. Side rails upx2, call light within reach. Bed low and locked. Will continue to monitor.
[2019-10-26 08:00] VITALS: BP 137/69
--- NOTE | 2019-10-26 08:03 | NUR ---
HAND-OFF: Report given to RUTHANN AMADOR.
--- NOTE | 2019-10-26 08:14 | Pulmonology Progress Note ---
Subjective ROS Limited/Unobtainable: No Interval Events: c/o pain after the venous doppler was done Gastrointestinal/Abdominal: Reports: other - pain in left lower abdominal quatdrant Musculoskeletal: Reports: no symptoms Allergies: Coded Allergies: CODEINE (Verified Allergy, Unknown, 10/10/19) Subjective fevers and leukocytosis resolved on RA, pulse ox stable , no signs of resp distress on heparin gtt Objective Last 24 Hour Vital Signs Date Time Temp Pulse Resp B/P (MAP) Pulse Ox O2 Delivery O2 Flow Rate FiO2 10/26/19 04:00 Room Air 10/26/19 04:00 98.7 75 20 146/64 (91) 96 10/26/19 04:00 44 10/26/19 00:00 Room Air 10/26/19 00:00 97.9 67 22 166/80 (108) 95 10/26/19 00:00 54 10/25/19 21:00 Room Air 10/25/19 20:00 49 10/25/19 20:00 98.6 65 20 123/66 (85) 95 10/25/19 16:00 97.7 76 17 139/76 (97) 98 10/25/19 15:34 59 10/25/19 13:32 97.7 10/25/19 12:00 101.1 70 19 157/75 (102) 96 10/25/19 11:50 55 10/25/19 09:43 132/93 10/25/19 09:00 56 132/93 10/25/19 09:00 Room Air Intake and Output 10/25/19 10/26/19 19:00 07:00 Intake Total 600 ml 840 ml Output Total 2300 ml 1900 ml Balance -1700 ml -1060 ml Intake Oral 600 ml 480 ml Other 360 ml Output Urine Total 2300 ml 1900 ml Objective General Appearance: WD/WN, no acute distress HEENT: normocephalic, atraumatic, anicteric, mucous membranes moist Respiratory: chest wall non-tender, normal breath sounds Cardiovascular: normal peripheral pulses, irregularly irregular - A fib with controlled HR Abdomen: normal bowel sounds, soft, non tender - obese Extremities: no clubbing, no edema Skin: no rash 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, alert, responsive Musculoskeletal: normal muscle bulk Microbiology Date/Time Source Procedure Growth Status 10/23/19 13:15 Nasopharynx Coronavirus COVID-19 PCR ([facility]) - Final Complete Laboratory Tests 10/25/19 12:10: Activated Partial Thromboplast Time 69H 10/26/19 04:15: Activated Partial Thromboplast Time 97H, White Blood Count 5.6, Red Blood Count 3.29L, Hemoglobin 8.8L, Hematocrit 28.7L, Mean Corpuscular Volume 87, Mean Corpuscular Hemoglobin 26.9L, Mean Corpuscular Hemoglobin Concent 30.8L, Red Cell Distribution Width 15.3H, Platelet Count 356, Mean Platelet Volume 8.7, Neutrophils (%) (Auto) 60.1, Lymphocytes (%) (Auto) 24.6, Monocytes (%) (Auto) 11.8H, Eosinophils (%) (Auto) 1.7, Basophils (%) (Auto) 1.9, Sodium Level 137, Potassium Level 3.9, Chloride Level 101, Carbon Dioxide Level 29, Anion Gap 7, Blood Urea Nitrogen 23H, Creatinine 2.5H, Estimat Glomerular Filtration Rate 22.8, Glucose Level 145H, Uric Acid 7.9H, Calcium Level 9.1, Phosphorus Level 5.2H, Magnesium Level 1.6L, Total Bilirubin 0.3, Aspartate Amino Transf (AST/ SGOT) 17, Alanine Aminotransferase (ALT/SGPT) 10L, Alkaline Phosphatase 107, C- Reactive Protein, Quantitative 4.3H, Pro-B-Type Natriuretic Peptide 7972H, Total Protein 7.2, Albumin 2.0L, Globulin 5.2, Albumin/Globulin Ratio 0.4L Current Medications Medications (Trade) Dose Ordered Sig/Adria Route PRN Reason Start Time Stop Time Status Last Admin Dose Admin Acetaminophen (Tylenol) 650 mg Q4H PRN ORAL fever 10/11/19 08:30 11/09/19 08:29 10/25/19 13:02 Acetaminophen (Tylenol) 650 mg Q4H PRN RECTAL Temp >100.5 10/14/19 06:30 11/13/19 06:29 Allopurinol (allopurinoL) 300 mg DAILY ORAL 10/24/19 09:00 11/23/19 08:59 10/25/19 09:43 Amlodipine Besylate (Norvasc) 10 mg DAILY ORAL 10/21/19 09:00 11/20/19 08:59 10/24/19 08:54 Aspirin (Ecotrin) 81 mg DAILY ORAL 10/11/19 09:00 11/25/19 08:59 10/25/19 09:42 Atorvastatin Calcium (Lipitor) 40 mg BEDTIME ORAL 10/12/19 21:00 01/10/20 20:59 10/25/19 20:54 Clonidine HCl (Catapres Tab) 0.1 mg Q4H PRN ORAL Blood pressure over 160 systol 10/11/19 08:30 01/08/20 08:29 10/25/19 05:10 Dextrose (Dextrose 50%) 25 ml Q30M PRN IV Hypoglycemia 10/11/19 08:30 01/08/20 11:29 Dextrose (Dextrose 50%) 50 ml Q30M PRN IV Hypoglycemia 10/11/19 08:30 01/08/20 11:29 Docusate Sodium (Colace) 100 mg THREE TIMES A DAY ORAL 10/11/19 09:00 11/09/19 17:59 10/22/19 13:12 Gabapentin (Neurontin) 200 mg THREE TIMES A DAY ORAL 10/16/19 13:00 11/09/19 12:59 10/25/19 17:19 Heparin Sodium/ Dextrose 500 ml @ 43.953 mls/ hr ADJUST PER PROTOCOL IV 10/26/19 05:45 11/24/19 05:29 10/26/19 05:45 Insulin Aspart (NovoLOG) BEFORE MEALS AND HS SUBQ 10/11/19 11:30 01/08/20 11:29 10/25/19 20:58 Isosorbide Mononitrate (Imdur) 30 mg DAILY ORAL 10/13/19 09:00 11/12/19 08:59 10/25/19 09:43 Latanoprost (Xalatan) 1 drop BEDTIME BOTH EYES 10/17/19 21:00 11/16/19 20:59 10/25/19 20:55 Morphine Sulfate (Morphine Sulfate) 2 mg Q4H PRN IVP For Pain 10/20/19 01:30 10/27/19 01:29 Nitroglycerin (Ntg) 0.4 mg Q5M PRN SL Prn Chest Pain 10/11/19 08:30 11/09/19 11:29 Ondansetron HCl (Zofran) 4 mg Q6H PRN IVP Nausea & Vomiting 10/11/19 08:30 11/09/19 08:29 Pantoprazole (Protonix) 40 mg EVERY 12 HOURS ORAL 10/14/19 21:00 11/13/19 20:59 10/25/19 20:55 Polyethylene Glycol (Miralax) 17 gm DAILYPRN PRN ORAL Constipation 10/11/19 08:30 11/09/19 08:29 Tramadol HCl (Ultram) 50 mg Q6H PRN ORAL For Pain 10/20/19 01:30 10/27/19 01:29 10/23/19 13:02 Assessment/Plan Assessment/Plan ASSESSMENT Severe sepsis with E coli bacteremia due to UTI E. coli UTI/pyelonephritis NSTEMI Suspected [id number] out AFib with RVR/permanent DM ARF on CKD Anemia Morbid obesity HTN Toxic metabolic encephalopathy PLAN OF CARE tele O2 titrate to keep sat above 90%, pulmonary toilet, pulse ox stable on RA v fup CXR abx as per ID recs COVID-19 10/09 and 10/10 NGT , also 10/22 NGT 10/09 BCX E coli, UCX E Coli 10/10 UCX + GNR, 10/10 BCX NGTD repeated BCX 10/13 and 10/14 NGT UCX and BCX 10/20 NGT now completed abx Echo with pEF troponin trending down antiplatelet therapy with ASA, Imdur, statin , off BB as per cardio recs now due to tania Heparin gtt for a/c and possible PE per cardio likely NSTEMI type II in setting of sepsis, asymptomatic he recommended noninvasive cardiac work-up versus cardiac cath once stable from ID standpoint repeated ECHO 10/21 no results in EMR, per cardio still good LV function off beta-blockade now due to tania , HR controlled , tania at night Venous BLE NGT declined VQ scan monitor renal parameters, lytes, correct electrolytes as needed fup with nephro recommendation monitor for LLQ abd pain, felt could be due to pyelo, but consider further imaging if not resolved BS management with SSI monitor H&H with goal to keep hemoglobin above 7 stool OB NGT GI prophylaxis case discussed and evaluated by supervising physician Edilma Atkins NP Oct 26, 2019 08:14
[2019-10-26] MEDS: Imdur 30mg tab ORAL SCH (09:12)
[2019-10-26] MEDS: Aspirin EC 81mg tab ORAL SCH (09:12)
[2019-10-26] MEDS: Docusate 100mg cap ORAL SCH ×3 (09:12→17:31)
--- NOTE | 2019-10-26 10:00 | NUR ---
NURSE NOTES: IV discontinued due to patient complaints of tenderness. IV site is puffy, warm to touch and has some mild erythema. Does not want RN to attempt new IV and stating she wants neonatal critical care nurse. Patient's wishes respected.
[2019-10-26 11:11] LABS: INR 1.2 (0.9-1.1)
--- NOTE | 2019-10-26 11:30 | NUR ---
NURSE NOTES: PTT level returned low. Pharmacist Juliet aware that Heparin drip was off since 10AM due to no IV access. Rate to be changed and bolus to be given at 1145.
[2019-10-26] MEDS ORDERED: Heparin 5000 units/ml inj IV SCH (11:45)
[2019-10-26] MEDS: traMADol 50mg tab ORAL PRN (11:55)
[2019-10-26 12:00] VITALS: BP 151/76
--- NOTE | 2019-10-26 12:26 | Internal Med Progress Note ---
Subjective Date of Service: Oct 26, 2019 Physician Name Johny Blankenship Attending Physician Aleksandr Vega MD Current Medications Medications (Trade) Dose Ordered Sig/Adria Route PRN Reason Start Time Stop Time Status Last Admin Dose Admin Acetaminophen (Tylenol) 650 mg Q4H PRN ORAL fever 10/11/19 08:30 11/09/19 08:29 10/25/19 13:02 Acetaminophen (Tylenol) 650 mg Q4H PRN RECTAL Temp >100.5 10/14/19 06:30 11/13/19 06:29 Allopurinol (allopurinoL) 300 mg DAILY ORAL 10/24/19 09:00 11/23/19 08:59 10/26/19 09:11 Amlodipine Besylate (Norvasc) 10 mg DAILY ORAL 10/21/19 09:00 11/20/19 08:59 10/26/19 09:12 Aspirin (Ecotrin) 81 mg DAILY ORAL 10/11/19 09:00 11/25/19 08:59 10/26/19 09:12 Atorvastatin Calcium (Lipitor) 40 mg BEDTIME ORAL 10/12/19 21:00 01/10/20 20:59 10/25/19 20:54 Clonidine HCl (Catapres Tab) 0.1 mg Q4H PRN ORAL Blood pressure over 160 systol 10/11/19 08:30 01/08/20 08:29 10/25/19 05:10 Dextrose (Dextrose 50%) 25 ml Q30M PRN IV Hypoglycemia 10/11/19 08:30 01/08/20 11:29 Dextrose (Dextrose 50%) 50 ml Q30M PRN IV Hypoglycemia 10/11/19 08:30 01/08/20 11:29 Docusate Sodium (Colace) 100 mg THREE TIMES A DAY ORAL 10/11/19 09:00 11/09/19 17:59 10/26/19 09:12 Gabapentin (Neurontin) 200 mg THREE TIMES A DAY ORAL 10/16/19 13:00 11/09/19 12:59 10/26/19 09:12 Heparin Sodium (Porcine) (Heparin 5000 units/ml) 11,000 units ONCE IV 10/26/19 11:45 10/26/19 12:30 10/26/19 11:43 Heparin Sodium/ Dextrose 500 ml @ 55.674 mls/ hr ADJUST PER PROTOCOL IV 10/26/19 11:45 11/25/19 11:44 10/26/19 11:44 Insulin Aspart (NovoLOG) BEFORE MEALS AND HS SUBQ 10/11/19 11:30 01/08/20 11:29 10/26/19 11:55 Isosorbide Mononitrate (Imdur) 30 mg DAILY ORAL 10/13/19 09:00 11/12/19 08:59 10/26/19 09:12 Latanoprost (Xalatan) 1 drop BEDTIME BOTH EYES 10/17/19 21:00 11/16/19 20:59 10/25/19 20:55 Morphine Sulfate (Morphine Sulfate) 2 mg Q4H PRN IVP For Pain 10/20/19 01:30 10/27/19 01:29 Nitroglycerin (Ntg) 0.4 mg Q5M PRN SL Prn Chest Pain 10/11/19 08:30 11/09/19 11:29 Ondansetron HCl (Zofran) 4 mg Q6H PRN IVP Nausea & Vomiting 10/11/19 08:30 11/09/19 08:29 Pantoprazole (Protonix) 40 mg EVERY 12 HOURS ORAL 10/14/19 21:00 11/13/19 20:59 10/26/19 09:12 Polyethylene Glycol (Miralax) 17 gm DAILYPRN PRN ORAL Constipation 10/11/19 08:30 11/09/19 08:29 Tramadol HCl (Ultram) 50 mg Q6H PRN ORAL For Pain 10/20/19 01:30 10/27/19 01:29 10/26/19 11:55 Warfarin Sodium (Coumadin per pharmacy) 1 ea DAILY PRN MISC Per rx protocol 10/26/19 10:15 11/25/19 10:14 Warfarin Sodium (Coumadin) 5 mg ONCE ORAL 10/26/19 17:00 10/26/19 18:00 Allergies: Coded Allergies: CODEINE (Verified Allergy, Unknown, 10/10/19) ROS Limited/Unobtainable: No Constitutional: Reports: no symptoms HEENT: Reports: no symptoms Cardiovascular: Reports: no symptoms Respiratory: Reports: no symptoms Gastrointestinal/Abdominal: Reports: no symptoms Genitourinary: Reports: no symptoms Neurologic/Psychiatric: Reports: no symptoms Subjective 74 YO F admitted with altered mental status and fever. Now UTI and sepsis. Cover for Int Med-Dr Vega. Refused V/Q scan Objective Last Vital Signs Date Time Temp Pulse Resp B/P (MAP) Pulse Ox O2 Delivery O2 Flow Rate FiO2 10/26/19 09:12 77 137/69 10/26/19 09:00 Room Air 10/26/19 08:00 97.9 20 96 10/20/19 07:47 21 Laboratory Tests Test 10/26/19 04:15 10/26/19 10:10 White Blood Count 5.6 K/UL (4.8-10.8) Red Blood Count 3.29 M/UL (4.20-5.40) L Hemoglobin 8.8 G/DL (12.0-16.0) L Hematocrit 28.7 % (37.0-47.0) L Mean Corpuscular Volume 87 FL (80-99) Mean Corpuscular Hemoglobin 26.9 PG (27.0-31.0) L Mean Corpuscular Hemoglobin Concent 30.8 G/DL (32.0-36.0) L Red Cell Distribution Width 15.3 % (11.6-14.8) H Platelet Count 356 K/UL (150-450) Mean Platelet Volume 8.7 FL (6.5-10.1) Neutrophils (%) (Auto) 60.1 % (45.0-75.0) Lymphocytes (%) (Auto) 24.6 % (20.0-45.0) Monocytes (%) (Auto) 11.8 % (1.0-10.0) H Eosinophils (%) (Auto) 1.7 % (0.0-3.0) Basophils (%) (Auto) 1.9 % (0.0-2.0) Activated Partial Thromboplast Time 97 SEC (23-33) H 45 SEC (23-33) H Sodium Level 137 MMOL/L (136-145) Potassium Level 3.9 MMOL/L (3.5-5.1) Chloride Level 101 MMOL/L (98-107) Carbon Dioxide Level 29 MMOL/L (21-32) Anion Gap 7 mmol/L (5-15) Blood Urea Nitrogen 23 mg/dL (7-18) H Creatinine 2.5 MG/DL (0.55-1.30) H Estimat Glomerular Filtration Rate 22.8 mL/min (>60) Glucose Level 145 MG/DL (74-106) H Uric Acid 7.9 MG/DL (2.6-7.2) H Calcium Level 9.1 MG/DL (8.5-10.1) Phosphorus Level 5.2 MG/DL (2.5-4.9) H Magnesium Level 1.6 MG/DL (1.8-2.4) L Total Bilirubin 0.3 MG/DL (0.2-1.0) Aspartate Amino Transf (AST/SGOT) 17 U/L (15-37) Alanine Aminotransferase (ALT/SGPT) 10 U/L (12-78) L Alkaline Phosphatase 107 U/L (46-116) C-Reactive Protein, Quantitative 4.3 mg/dL (0.00-0.90) H Pro-B-Type Natriuretic Peptide 7972 pg/mL (0-125) H Total Protein 7.2 G/DL (6.4-8.2) Albumin 2.0 G/DL (3.4-5.0) L Globulin 5.2 g/dL Albumin/Globulin Ratio 0.4 (1.0-2.7) L Prothrombin Time 13.4 SEC (9.30-11.50) H Prothromb Time International Ratio 1.2 (0.9-1.1) H Microbiology Date/Time Source Procedure Growth Status 10/23/19 13:15 Nasopharynx Coronavirus COVID-19 PCR ([facility]) - Final Complete Intake and Output 10/25/19 10/26/19 19:00 07:00 Intake Total 600 ml 840 ml Output Total 2300 ml 1900 ml Balance -1700 ml -1060 ml Intake Oral 600 ml 480 ml Other 360 ml Output Urine Total 2300 ml 1900 ml Objective PHYSICAL EXAMINATION: GENERAL: Patient is well-developed, well-nourished, slightly obese female, in no apparent distress. HEENT: Eyes, pupils are equal and responsive to light and accommodation. Extraocular movements are intact. NECK: Supple. No lymphadenopathy. CHEST: Lungs are clear to auscultation bilaterally without wheezes or rales. CARDIOVASCULAR: Regular rate. S1, S2 are normal without murmurs, rubs, or gallops. ABDOMEN: Soft, nontender, nondistended. Positive bowel sounds. No evidence of hepatosplenomegaly. Currently no rebound or guarding noted. EXTREMITIES: Negative for clubbing, cyanosis, or edema. RECTAL/GENITAL: Not performed. NEUROLOGIC: Cranial nerves II to XII grossly intact without focal deficits Assessment/Plan Assessment/Plan ASSESSMENT: This is a 74-year-old female. 1. Sepsis=E. Coli 2. UTI=E. Coli 3. Altered mental status. 4. Leukocytosis. 5. Elevated troponin. 6. Atrial fibrillation. 7. Diabetes type 2. 8. Hypertension. 9. Hyperthyroidism. 10. Coronary artery disease. 11. Renal failure. 12. Hypercholesterolemia. 13. Chronic lymphedema of the bilateral lower extremities. 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 Urinary Tract infection-E. Coli ABX=ceftriaxone, S/P meropenem. Infectious Disease=Dr. Mays. We will follow recommendations of Infectious Disease. 2. Sepsis=E. Coli Await culture and sensitivity result. Continue meropenem per ID. 3. Altered mental status. Resolved 4. Leukocytosis. Resolved 5. Elevated troponin. A Cardiology consultation has been obtained with Dr. Arun Barker. 6. Atrial fibrillation. Continue Coumadin as above. A Cardiology consultation has been obtained with Dr. Arun Barker. 7. Diabetes type 2. NovoLog sliding scale has been instituted. 8. Hypertension. Patient is currently hypotensive. Hold amlodipine as above. 9. Hyperthyroidism. Continue methimazole as above. 10. Coronary artery disease. Patient has elevated troponin. A Cardiology consultation has been obtained with Dr. Arun Barker. 11. Renal failure. A Nephrology consultation has been obtained with Dr. Pantera Wallace. 12. Hypercholesterolemia. Continue simvastatin as above. 13. Chronic lymphedema of bilateral lower extremities. 14. Will need CT abdomen/pelvis to R/O abscess-see ID note. 15. Await cardiac cath-see cardiology note 16. Refused V/Q scan to R/O pulmonary embolism; Continue heparin drip unitl coumadin therapeutic 17. Non invasive W/U vs cardiac cath 18. Discharge planning: [facility] Johny Blankenship MD Oct 26, 2019 12:26
--- NOTE | 2019-10-26 12:27 | Nephrology Progress Note ---
Assessment/Plan Problem List: (1) Renal failure (ARF), acute on chronic (2) Diabetes mellitus (3) Morbid obesity (4) Chronic atrial fibrillation (5) History of DVT (deep vein thrombosis) (6) Anemia (7) NSTEMI (non-ST elevated myocardial infarction) (8) Sepsis (9) Pyelonephritis Assessment Renal failure, most likely acute on chronic. Sepsis, leukocytosis, fever, suspected 2019 novel coronavirus infection. Encephalopathy most likely toxic metabolic UTI/pyelonephritis Anemia Atrial fibrillation chronic, with fast ventricular rate. Diabetes mellitus Morbid obesity/limited mobility History of DVT Elevated troponin I Lactic acidosis Plan October 25: Serum creatinine 2.5 stable. Chest x-ray reviewed. Mild CHF present. Will restart Lasix and adjust dose as needed . October 24: Serum creatinine rising. Patient has been on IV Lasix since October 22. Will hold IV Lasix, and check chest x-ray for evidence of CHF. Continue to monitor renal parameters. October 23: Status quo. Serum creatinine stable. Mag supplement IV given. Remains anemic hemoglobin stable. Full code. October 22: No chemistry panel done today. Status quo. Remains full code. Medication list reviewed. October 21: Labs reviewed. Serum creatinine stable. Patient remains full code. Continue per consultants. Urinalysis results from yesterday noted. Culture so far negative. October 20: Labs are reviewed. Creatinine 2.1. White blood cells within normal range. Blood pressure is reasonably controlled. Medication reviewed and adjusted. Coreg dose increased. UA and culture ordered. October 19: Lab reviewed. Creatinine lower. Will adjust blood pressure medication. Leukocytosis resolved. October 18: No can panel drawn today. Clinically stable. Will check labs in a.m. Continue per consultants. October 17: Serum creatinine stable lowering. Continues to improve. Full code. Continue per consultants. October 16: Serum creatinine lowering. White blood cell is lowering. Clinically improving. Continue per consultants. October 15: Serum creatinine lowered to 2.6. White blood cell count is also down to 17,000. Not much to add from renal standpoint of view. Continue per cardiology and per ID. October 14: Serum creatinine 2.8. No new changes. 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 Leukocytosis persists. Remains on meropenem. Continue per ID. October 13: Serum creatinine continues to lower. Troponin level also declining. Continue per cardiology management. Statins was restarted by cardiology. Continue to monitor renal parameters. October 12: Serum creatinine lowering. Troponin I is also declining. Continue per cardiology management. Will continue to follow-up renal parameters and CPK level. October 11: Statins stopped due to worsening LFTs. 1 dose of Plavix given. Imdur started. Serum creatinine stable. Continue per cardiology. Continue to monitor renal parameters and CPK. Monitor troponin I and CPK Aspirin, Coreg ,nitrate for elevated troponin Antibiotics Echocardiogram results noted Kidney ultrasound results pending Monitor urine output and renal parameters Keep the blood pressure and blood sugar in check Coumadin for DVT and atrial fibrillation IV Protonix Subjective ROS Limited/Unobtainable: No Constitutional: Reports: malaise Objective Objective Last 24 Hour Vital Signs Date Time Temp Pulse Resp B/P (MAP) Pulse Ox O2 Delivery O2 Flow Rate FiO2 10/26/19 09:12 77 137/69 10/26/19 09:12 137/69 10/26/19 09:00 Room Air 10/26/19 08:00 97.9 70 20 137/69 (91) 96 10/26/19 08:00 77 10/26/19 04:00 Room Air 10/26/19 04:00 98.7 75 20 146/64 (91) 96 10/26/19 04:00 44 10/26/19 00:00 Room Air 10/26/19 00:00 97.9 67 22 166/80 (108) 95 10/26/19 00:00 54 10/25/19 21:00 Room Air 10/25/19 20:00 49 10/25/19 20:00 98.6 65 20 123/66 (85) 95 10/25/19 16:00 97.7 76 17 139/76 (97) 98 10/25/19 15:34 59 10/25/19 13:32 97.7 Intake and Output 10/25/19 10/26/19 19:00 07:00 Intake Total 600 ml 840 ml Output Total 2300 ml 1900 ml Balance -1700 ml -1060 ml Intake Oral 600 ml 480 ml Other 360 ml Output Urine Total 2300 ml 1900 ml Laboratory Tests 10/26/19 04:15: White Blood Count 5.6, Red Blood Count 3.29L, Hemoglobin 8.8L, Hematocrit 28.7L , Mean Corpuscular Volume 87, Mean Corpuscular Hemoglobin 26.9L, Mean Corpuscular Hemoglobin Concent 30.8L, Red Cell Distribution Width 15.3H, Platelet Count 356, Mean Platelet Volume 8.7, Neutrophils (%) (Auto) 60.1, Lymphocytes (%) (Auto) 24.6, Monocytes (%) (Auto) 11.8H, Eosinophils (%) (Auto) 1.7, Basophils (%) (Auto) 1.9, Activated Partial Thromboplast Time 97H, Sodium Level 137, Potassium Level 3.9, Chloride Level 101, Carbon Dioxide Level 29, Anion Gap 7, Blood Urea Nitrogen 23H, Creatinine 2.5H, Estimat Glomerular Filtration Rate 22.8, Glucose Level 145H, Uric Acid 7.9H, Calcium Level 9.1, Phosphorus Level 5.2H, Magnesium Level 1.6L, Total Bilirubin 0.3, Aspartate Amino Transf (AST/SGOT) 17, Alanine Aminotransferase (ALT/SGPT) 10L, Alkaline Phosphatase 107, C-Reactive Protein, Quantitative 4.3H, Pro-B-Type Natriuretic Peptide 7972H, Total Protein 7.2, Albumin 2.0L, Globulin 5.2, Albumin/Globulin Ratio 0.4L 10/26/19 10:10: Activated Partial Thromboplast Time 45H, Prothrombin Time 13.4H, Prothromb Time International Ratio 1.2H Height (Feet): 5 Height (Inches): 3.00 Weight (Pounds): 323 General Appearance: no apparent distress Cardiovascular: other Respiratory/Chest: decreased breath sounds Abdomen: other - Obese Objective No change Pantera Wallace MD Oct 26, 2019 12:27
[2019-10-26] MEDS ORDERED: Furosemide 40mg tab ORAL SCH (12:29)
[2019-10-26] MEDS: Magnesium Oxide 400mg tab ORAL SCH ×2 (13:20→17:30)
--- NOTE | 2019-10-26 15:00 | NUR ---
NURSE NOTES:WOUND CARE NOTES:Morbidly obese pt whom presented on admission with Partial thickness pressure injury L buttocks. Pt is very hostile and resistive to care and positioning. Requires multiple staff and extensive assist with bed mobility. Resolving Partial Thickness Pressure Injury L buttocks. Dry epithelial at base of wound. Surrounding area of buttocks dry with darker skin tone with erythema. Both heels are soft but blanchable. Pt declined to be positioned off back and requested pillows on both sides of patient to maintain in supine position. Staff respectfully complied with patients demand but pt has been educated of risks for wound to re-open and or further decline. Tx.Plan: Apply Moisture Barrier Paste to Sacrum and cleft of buttocks. Cover Sacrum with Optifoam drsg. Change every 3 days and prn. Apply Cavilon Skin Barrier to both heels. Cover each heel with Optifoam drsg. Change every 7 days and prn. Reposition at least every 2hours or as tolerated. Off-load heels with pillow. Bariatric Bed with surface Support mattress.
[2019-10-26 16:00] VITALS: BP 126/90
--- NOTE | 2019-10-26 16:01 | Infectious Diseases Prog Note ---
Assessment/Plan Assessment/Plan Assessment: Severe Sepsis Probable PNA- COVID neg x3- sp VEnturi mask 8L- now at [facility]- GGO seen on CT chest CHF exacerbation (R heart failure) -10/24 CXR: Cardiomegaly with slight increased prominence of the central pulmonary vasculature which may signal development of mild congestive changes. No overt alveolar edema/CHF. -10/22 SARS-COV2 PCR neg -10/20 CXR: Cardiomegaly. No acute disease. -10/13 CXR: Mild vascular congestion. Probable small left pleural effusion. -10/10 SARS-COV2 PCR neg -10/09 CXR: Mild interstitial congestion. 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 EARLY VIRAL PNEUMONITIS MAY PRESENT SIMILARLY. HIATAL HERNIA AND POSTOPERATIVE CHANGES OF THE STOMACH. GALLSTONES. ATROPHIC PANCREAS WITH SMALL CYST AT THE PANCREATIC TAIL. LEFT RENAL STONES. BILATERAL RENAL CYSTS. NO HYDRONEPHROSIS. DIVERTICULOSIS. SUPRAUMBILICAL FATTY VENTRAL HERNIA. ANASARCA. Targeted review of the left groin region shows no evidence of a hematoma and there is no hernia demonstrated. Mild generalized soft tissue induration noted involving the anterior pelvic wall and bilateral hip regions likely reflecting generalized anasarca. There is slight asymmetric thickening at the inferior margin of the left abdominal rectus muscle compared to the contralateral right. The thickening is isodense to the rest of the muscles so there does not appear to be an acute intramuscular hematoma. -10/17 v. duplex BLE: limited study, No DVT NSTEMI ?PE Acute encephalopathy; SP LG, Cr fluctuating -renal US: Negative for hydronephrosis. Possible nonobstructive left lower pole renal calculi. Incidental finding of bilateral renal parapelvic cysts. morbid obesity HTN Dm2 hx of UTI Afib on coumadin [place] resident ([facility]) Plan: -Continue to monitor off abx -10/22 SP Ceftriaxone #7 -6/ SP Meropenem #7 -/8 SP IV Vancomycin #5 -6/ SP cefepime #2 -/ SP Meropenem x1 -f/u cx -monitor CBC/CMP, temperatures -COVID19 neg x3- ok to dc isolation -f/u repeat Bcx x2 -Cards, renal f/u Thank you for consulting [facility]. Will continue to follow along with you. Discussed with RN. Subjective Allergies: Coded Allergies: CODEINE (Verified Allergy, Unknown, 10/10/19) Subjective afebrile >24hrs no leukocytosis repeat BCx NTD at RA Objective Vital Signs Last 24 Hour Vital Signs Date Time Temp Pulse Resp B/P (MAP) Pulse Ox O2 Delivery O2 Flow Rate FiO2 10/26/19 12:00 72 10/26/19 12:00 97.9 76 20 151/76 (101) 96 10/26/19 09:12 77 137/69 10/26/19 09:12 137/69 10/26/19 09:00 Room Air 10/26/19 08:00 97.9 70 20 137/69 (91) 96 10/26/19 08:00 77 10/26/19 04:00 Room Air 10/26/19 04:00 98.7 75 20 146/64 (91) 96 10/26/19 04:00 44 10/26/19 00:00 Room Air 10/26/19 00:00 97.9 67 22 166/80 (108) 95 10/26/19 00:00 54 10/25/19 21:00 Room Air 10/25/19 20:00 49 10/25/19 20:00 98.6 65 20 123/66 (85) 95 10/25/19 16:00 97.7 76 17 139/76 (97) 98 Height (Feet): 5 Height (Inches): 3.00 Weight (Pounds): 323 Objective GENERAL: Patient is well-developed, well-nourished, slightly obese female, in no apparent distress. HEENT: Eyes, pupils are equal and responsive to light and accommodation. Extraocular movements are intact. NECK: Supple. No lymphadenopathy. CHEST: Lungs are clear to auscultation bilaterally without wheezes or rales. CARDIOVASCULAR: Regular rate. S1, S2 are normal without murmurs, rubs, or gallops. ABDOMEN: Soft, nontender, nondistended. Positive bowel sounds. No evidence of hepatosplenomegaly. Currently no rebound or guarding noted. EXTREMITIES: Negative for clubbing, cyanosis, or edema. Laboratory Tests Test 10/26/19 04:15 10/26/19 10:10 White Blood Count 5.6 K/UL (4.8-10.8) Red Blood Count 3.29 M/UL (4.20-5.40) L Hemoglobin 8.8 G/DL (12.0-16.0) L Hematocrit 28.7 % (37.0-47.0) L Mean Corpuscular Volume 87 FL (80-99) Mean Corpuscular Hemoglobin 26.9 PG (27.0-31.0) L Mean Corpuscular Hemoglobin Concent 30.8 G/DL (32.0-36.0) L Red Cell Distribution Width 15.3 % (11.6-14.8) H Platelet Count 356 K/UL (150-450) Mean Platelet Volume 8.7 FL (6.5-10.1) Neutrophils (%) (Auto) 60.1 % (45.0-75.0) Lymphocytes (%) (Auto) 24.6 % (20.0-45.0) Monocytes (%) (Auto) 11.8 % (1.0-10.0) H Eosinophils (%) (Auto) 1.7 % (0.0-3.0) Basophils (%) (Auto) 1.9 % (0.0-2.0) Activated Partial Thromboplast Time 97 SEC (23-33) H 45 SEC (23-33) H Sodium Level 137 MMOL/L (136-145) Potassium Level 3.9 MMOL/L (3.5-5.1) Chloride Level 101 MMOL/L (98-107) Carbon Dioxide Level 29 MMOL/L (21-32) Anion Gap 7 mmol/L (5-15) Blood Urea Nitrogen 23 mg/dL (7-18) H Creatinine 2.5 MG/DL (0.55-1.30) H Estimat Glomerular Filtration Rate 22.8 mL/min (>60) Glucose Level 145 MG/DL (74-106) H Uric Acid 7.9 MG/DL (2.6-7.2) H Calcium Level 9.1 MG/DL (8.5-10.1) Phosphorus Level 5.2 MG/DL (2.5-4.9) H Magnesium Level 1.6 MG/DL (1.8-2.4) L Total Bilirubin 0.3 MG/DL (0.2-1.0) Aspartate Amino Transf (AST/SGOT) 17 U/L (15-37) Alanine Aminotransferase (ALT/SGPT) 10 U/L (12-78) L Alkaline Phosphatase 107 U/L (46-116) C-Reactive Protein, Quantitative 4.3 mg/dL (0.00-0.90) H Pro-B-Type Natriuretic Peptide 7972 pg/mL (0-125) H Total Protein 7.2 G/DL (6.4-8.2) Albumin 2.0 G/DL (3.4-5.0) L Globulin 5.2 g/dL Albumin/Globulin Ratio 0.4 (1.0-2.7) L Prothrombin Time 13.4 SEC (9.30-11.50) H Prothromb Time International Ratio 1.2 (0.9-1.1) H Current Medications Medications (Trade) Dose Ordered Sig/Adria Route PRN Reason Start Time Stop Time Status Last Admin Dose Admin Acetaminophen (Tylenol) 650 mg Q4H PRN ORAL fever 10/11/19 08:30 11/09/19 08:29 10/25/19 13:02 Acetaminophen (Tylenol) 650 mg Q4H PRN RECTAL Temp >100.5 10/14/19 06:30 11/13/19 06:29 Allopurinol (allopurinoL) 300 mg DAILY ORAL 10/24/19 09:00 11/23/19 08:59 10/26/19 09:11 Amlodipine Besylate (Norvasc) 10 mg DAILY ORAL 10/21/19 09:00 11/20/19 08:59 10/26/19 09:12 Aspirin (Ecotrin) 81 mg DAILY ORAL 10/11/19 09:00 11/25/19 08:59 10/26/19 09:12 Atorvastatin Calcium (Lipitor) 40 mg BEDTIME ORAL 10/12/19 21:00 01/10/20 20:59 10/25/19 20:54 Clonidine HCl (Catapres Tab) 0.1 mg Q4H PRN ORAL Blood pressure over 160 systol 10/11/19 08:30 01/08/20 08:29 10/25/19 05:10 Dextrose (Dextrose 50%) 25 ml Q30M PRN IV Hypoglycemia 10/11/19 08:30 01/08/20 11:29 Dextrose (Dextrose 50%) 50 ml Q30M PRN IV Hypoglycemia 10/11/19 08:30 01/08/20 11:29 Docusate Sodium (Colace) 100 mg THREE TIMES A DAY ORAL 10/11/19 09:00 11/09/19 17:59 10/26/19 09:12 Furosemide (Lasix) 40 mg DAILY ORAL 10/27/19 09:00 11/26/19 08:59 Gabapentin (Neurontin) 200 mg THREE TIMES A DAY ORAL 10/16/19 13:00 11/09/19 12:59 10/26/19 13:21 Heparin Sodium/ Dextrose 500 ml @ 55.674 mls/ hr ADJUST PER PROTOCOL IV 10/26/19 11:45 11/25/19 11:44 10/26/19 11:44 Insulin Aspart (NovoLOG) BEFORE MEALS AND HS SUBQ 10/11/19 11:30 01/08/20 11:29 10/26/19 11:55 Isosorbide Mononitrate (Imdur) 30 mg DAILY ORAL 10/13/19 09:00 11/12/19 08:59 10/26/19 09:12 Latanoprost (Xalatan) 1 drop BEDTIME BOTH EYES 10/17/19 21:00 11/16/19 20:59 10/25/19 20:55 Magnesium Oxide (Mag-Ox 400mg) 400 mg THREE TIMES A DAY ORAL 10/26/19 13:00 10/27/19 12:59 10/26/19 13:20 Morphine Sulfate (Morphine Sulfate) 2 mg Q4H PRN IVP For Pain 10/20/19 01:30 10/27/19 01:29 Nitroglycerin (Ntg) 0.4 mg Q5M PRN SL Prn Chest Pain 10/11/19 08:30 11/09/19 11:29 Ondansetron HCl (Zofran) 4 mg Q6H PRN IVP Nausea & Vomiting 10/11/19 08:30 11/09/19 08:29 Pantoprazole (Protonix) 40 mg EVERY 12 HOURS ORAL 10/14/19 21:00 11/13/19 20:59 10/26/19 09:12 Polyethylene Glycol (Miralax) 17 gm DAILYPRN PRN ORAL Constipation 10/11/19 08:30 11/09/19 08:29 Tramadol HCl (Ultram) 50 mg Q6H PRN ORAL For Pain 10/20/19 01:30 10/27/19 01:29 10/26/19 11:55 Warfarin Sodium (Coumadin per pharmacy) 1 ea DAILY PRN MISC Per rx protocol 10/26/19 10:15 11/25/19 10:14 Warfarin Sodium (Coumadin) 5 mg ONCE ORAL 10/26/19 17:00 10/26/19 18:00 Hannah Mays M.D. Oct 26, 2019 16:01
[2019-10-26] MEDS ORDERED: Warfarin Sodium 5mg ORAL SCH (17:00)
--- NOTE | 2019-10-26 17:11 | NUR ---
NURSE NOTES: Received report from RUTHANN Fisher. Patient AAO x4, eating dinner in bed. No signs of distress. Breathing unlabored on room air. Radial pulses palpable. Heparin infusing via L hand 22 g IV at 19 units/kg/hr. Will continue to monitor.
--- NOTE | 2019-10-26 17:16 | NUR ---
HAND-OFF: Report given to Jeri BEAVERS. Patient stable. Plan of care endorsed. Endorsed coumadin dose and 1745 PTT lab draw. Patient eating at this time with Heparin drip at 19units/kg/hour.
--- NOTE | 2019-10-26 18:42 | NUR ---
NURSE NOTES: PTT >150. Per Pharmacist Marisa, hold heparin infusion for one hour, then restart infusion at 15 units/kg/hr. Repeat PTT ordered and to be drawn 10/27/19 at 0042.
--- NOTE | 2019-10-26 19:41 | Cardiology Progress Note ---
Assessment/Plan Problem List: (1) Morbid obesity (2) Diabetes mellitus (3) Chronic atrial fibrillation (4) NSTEMI (non-ST elevated myocardial infarction) (5) Elevated troponin I level (6) Suspected 2019 novel coronavirus infection (7) Pyelonephritis (8) Sepsis Status: stable, progressing Status Narrative AF- permanent Moderate pulmonary hypertension - PA pressures 50s by ECHO CKD Mild troponin elevation, type 2 NSTEMI Morbid obesity UTI -treated Assessment/Plan Continue anticoagulation - IV heparin transitioning to warfarin Ventricular rates controlled - coreg dc'd due to bradycardia. Amlodipine for BP control asa, plavix, statin and b idalia for CAD. Declines cath ( reports nl cath several yrs ago) and v/q scan Subjective ROS Limited/Unobtainable: No Subjective Cardiology for Dr. Barker. Mrs Funk is awake, alert. She has no c/o chest pain or dyspnea at rest Objective Last 24 Hour Vital Signs Date Time Temp Pulse Resp B/P (MAP) Pulse Ox O2 Delivery O2 Flow Rate FiO2 10/26/19 16:00 98.6 90 20 126/90 (102) 98 10/26/19 16:00 81 10/26/19 12:00 72 10/26/19 12:00 97.9 76 20 151/76 (101) 96 10/26/19 09:12 77 137/69 10/26/19 09:12 137/69 10/26/19 09:00 Room Air 10/26/19 08:00 97.9 70 20 137/69 (91) 96 10/26/19 08:00 77 10/26/19 04:00 Room Air 10/26/19 04:00 98.7 75 20 146/64 (91) 96 10/26/19 04:00 44 10/26/19 00:00 Room Air 10/26/19 00:00 97.9 67 22 166/80 (108) 95 10/26/19 00:00 54 10/25/19 21:00 Room Air 10/25/19 20:00 49 10/25/19 20:00 98.6 65 20 123/66 (85) 95 General Appearance: WD/WN, alert, obese EENT: PERRL/EOMI Neck: supple, no JVD Rhythm: Afib Cardiovascular: irregularly irregular Respiratory/Chest: other - clear anteriorly Abdomen: non tender, soft Extremities: no swelling Intake and Output 10/25/19 10/26/19 19:00 07:00 Intake Total 600 ml 883.953 ml Output Total 2300 ml 1900 ml Balance -1700 ml -1016.047 ml Intake Oral 600 ml 480 ml IV Total 43.953 ml Other 360 ml Output Urine Total 2300 ml 1900 ml Laboratory Tests Test 10/26/19 04:15 10/26/19 10:10 10/26/19 17:55 White Blood Count 5.6 K/UL (4.8-10.8) Red Blood Count 3.29 M/UL (4.20-5.40) L Hemoglobin 8.8 G/DL (12.0-16.0) L Hematocrit 28.7 % (37.0-47.0) L Mean Corpuscular Volume 87 FL (80-99) Mean Corpuscular Hemoglobin 26.9 PG (27.0-31.0) L Mean Corpuscular Hemoglobin Concent 30.8 G/DL (32.0-36.0) L Red Cell Distribution Width 15.3 % (11.6-14.8) H Platelet Count 356 K/UL (150-450) Mean Platelet Volume 8.7 FL (6.5-10.1) Neutrophils (%) (Auto) 60.1 % (45.0-75.0) Lymphocytes (%) (Auto) 24.6 % (20.0-45.0) Monocytes (%) (Auto) 11.8 % (1.0-10.0) H Eosinophils (%) (Auto) 1.7 % (0.0-3.0) Basophils (%) (Auto) 1.9 % (0.0-2.0) Activated Partial Thromboplast Time 97 SEC (23-33) H 45 SEC (23-33) H > 150 SEC (23-33) *H Sodium Level 137 MMOL/L (136-145) Potassium Level 3.9 MMOL/L (3.5-5.1) Chloride Level 101 MMOL/L (98-107) Carbon Dioxide Level 29 MMOL/L (21-32) Anion Gap 7 mmol/L (5-15) Blood Urea Nitrogen 23 mg/dL (7-18) H Creatinine 2.5 MG/DL (0.55-1.30) H Estimat Glomerular Filtration Rate 22.8 mL/min (>60) Glucose Level 145 MG/DL (74-106) H Uric Acid 7.9 MG/DL (2.6-7.2) H Calcium Level 9.1 MG/DL (8.5-10.1) Phosphorus Level 5.2 MG/DL (2.5-4.9) H Magnesium Level 1.6 MG/DL (1.8-2.4) L Total Bilirubin 0.3 MG/DL (0.2-1.0) Aspartate Amino Transf (AST/SGOT) 17 U/L (15-37) Alanine Aminotransferase (ALT/SGPT) 10 U/L (12-78) L Alkaline Phosphatase 107 U/L (46-116) C-Reactive Protein, Quantitative 4.3 mg/dL (0.00-0.90) H Pro-B-Type Natriuretic Peptide 7972 pg/mL (0-125) H Total Protein 7.2 G/DL (6.4-8.2) Albumin 2.0 G/DL (3.4-5.0) L Globulin 5.2 g/dL Albumin/Globulin Ratio 0.4 (1.0-2.7) L Prothrombin Time 13.4 SEC (9.30-11.50) H Prothromb Time International Ratio 1.2 (0.9-1.1) H Juliet Biswas MD Oct 26, 2019 19:41
--- NOTE | 2019-10-26 19:41 | NUR ---
HAND-OFF: Report given to RUTHANN Mcgrath.
[2019-10-26] MEDS: Heparin 25,000u/D5W 500ml 500 ML IV SCH (19:54)
[2019-10-26 20:00] VITALS: BP 116/80
--- NOTE | 2019-10-26 20:27 | NUR ---
NURSE NOTES: Received patient report from RUTHANN Jo and RUTHANN Nielsen. Patient shows no signs of distress or pain at the time. AO x 4. Heparin was started again at 1944 at 15 units/ kg/ hr as ordered. IV is patent and flushed. There are no signs of erythema, infiltration, or bleeding noted at the time. Bed is in the lowest position, call light within reach, side rails up x 3. Will continue to monitor.
[2019-10-26] MEDS: Atorvastatin 20mg tab ORAL SCH (21:06)
[2019-10-26] MEDS: Latanoprost 0.005% Opth 2.5ml Soln BOTH EYES SCH (21:08)
[2019-10-27] VITALS: BP 145/81
[2019-10-27 01:23] LABS: INR 1.6 (0.9-1.1)
--- NOTE | 2019-10-27 02:20 | NUR ---
NURSE NOTES: Spoke to Lindsey from [facility]. Patients PTT is within range so there is no change per protocol. It will still be 15 units/kg/hr. Next PTT ordered at 0400 on 10/27.
[2019-10-27 04:00] VITALS: BP 133/79
[2019-10-27 05:52] LABS: BASOPHILS % (AUTO) 0.7 % (0.0-2.0); EOSINOPHILS % (AUTO) 1.6 % (0.0-3.0); HEMATOCRIT 31.5 % (37.0-47.0); HEMOGLOBIN 9.6 G/DL (12.0-16.0); LYMPHOCYTES % (AUTO) 21.5 % (20.0-45.0); MEAN CORPUSCULAR VOLUME 89 FL (80-99); MONOCYTES % (AUTO) 11.6 % (1.0-10.0); NEUTROPHILS % (AUTO) 64.6 % (45.0-75.0); PLATELET COUNT 399 K/UL (150-450); RED BLOOD COUNT 3.55 M/UL (4.20-5.40); RED CELL DISTRIBUTION WIDTH 14.9 % (11.6-14.8)
[2019-10-27 06:18] LABS: ANION GAP 9 mmol/L (5-15); BLOOD UREA NITROGEN 23 mg/dL (7-18); CALCIUM 9.2 MG/DL (8.5-10.1); CARBON DIOXIDE 28 MMOL/L (21-32); CHLORIDE 100 MMOL/L (98-107); CREATININE 2.2 MG/DL (0.55-1.30); POTASSIUM 3.8 MMOL/L (3.5-5.1); SODIUM 137 MMOL/L (136-145)
[2019-10-27] MEDS: NovoLOG Insulin Flexpen SUBQ SCH ×4 (06:30→20:33)
--- NOTE | 2019-10-27 07:29 | NUR ---
HAND-OFF: Report given to RUTHANN Ortega. patient shows no signs of distress or pain at the time. Endorsed plan of care.
--- NOTE | 2019-10-27 07:30 | NUR ---
NURSE NOTES: Received report from Ramila/RN, Patient is lying semi-mustafa's, resting comfortably, On room air, no acute distress/SOB noted at this time. Able to make needs known, Johanny pain at this time. IV on left Hand 22G, Heparin drip running at 15U/KG/HR at this time. Bed in low position and locked, Call light within reach, Encouraged to use call light when needed. Will continue plan of care.
[2019-10-27 08:00] VITALS: BP 138/80
--- NOTE | 2019-10-27 08:20 | Pulmonology Progress Note ---
Subjective ROS Limited/Unobtainable: No Interval Events: c/o pain after the venous doppler was done Gastrointestinal/Abdominal: Reports: other - pain in left lower abdominal quatdrant Musculoskeletal: Reports: no symptoms Allergies: Coded Allergies: CODEINE (Verified Allergy, Unknown, 10/10/19) Subjective low grade fevers last night and this am on RA, pulse ox stable , no signs of resp distress on heparin gtt Objective Last 24 Hour Vital Signs Date Time Temp Pulse Resp B/P (MAP) Pulse Ox O2 Delivery O2 Flow Rate FiO2 10/27/19 04:00 52 10/27/19 04:00 99.5 65 19 133/79 (97) 95 10/27/19 00:00 62 10/27/19 00:00 98.8 62 19 145/81 (102) 94 10/26/19 21:00 Room Air 10/26/19 20:00 66 10/26/19 20:00 100.0 68 19 116/80 (92) 95 10/26/19 16:00 98.6 90 20 126/90 (102) 98 10/26/19 16:00 81 10/26/19 12:00 72 10/26/19 12:00 97.9 76 20 151/76 (101) 96 10/26/19 09:12 77 137/69 10/26/19 09:12 137/69 10/26/19 09:00 Room Air Intake and Output 10/26/19 10/27/19 19:00 07:00 Intake Total 424.1488 ml 943.924 ml Output Total 500 ml 700 ml Balance -75.8512 ml 243.924 ml Intake Oral 500 ml IV Total 424.1488 ml 443.924 ml Output Urine Total 500 ml 700 ml Objective General Appearance: WD/WN, no acute distress HEENT: normocephalic, atraumatic, anicteric, mucous membranes moist Respiratory: chest wall non-tender, normal breath sounds Cardiovascular: normal peripheral pulses, irregularly irregular - A fib with controlled HR Abdomen: normal bowel sounds, soft, non tender - obese Extremities: no clubbing, no edema Skin: no rash Neurologic: waste examiner II-XII grossly normal, alert, responsive Musculoskeletal: normal muscle bulk Laboratory Tests 10/26/19 10:10: Prothrombin Time 13.4H, Prothromb Time International Ratio 1.2H, Activated Partial Thromboplast Time 45H 10/26/19 17:55: Activated Partial Thromboplast Time > 150*H 10/27/19 00:50: Prothrombin Time 16.7H, Prothromb Time International Ratio 1.6H, Activated Partial Thromboplast Time 74H 10/27/19 04:00: White Blood Count 7.0, Red Blood Count 3.55L, Hemoglobin 9.6L, Hematocrit 31.5L , Mean Corpuscular Volume 89, Mean Corpuscular Hemoglobin 27.2, Mean Corpuscular Hemoglobin Concent 30.6L, Red Cell Distribution Width 14.9H, Platelet Count 399, Mean Platelet Volume 7.5, Neutrophils (%) (Auto) 64.6, Lymphocytes (%) (Auto) 21.5, Monocytes (%) (Auto) 11.6H, Eosinophils (%) (Auto) 1.6, Basophils (%) (Auto) 0.7, Sodium Level 137, Potassium Level 3.8, Chloride Level 100, Carbon Dioxide Level 28, Anion Gap 9, Blood Urea Nitrogen 23H, Creatinine 2.2H, Estimat Glomerular Filtration Rate 26.4, Glucose Level 141H, Calcium Level 9.2 Current Medications Medications (Trade) Dose Ordered Sig/Adria Route PRN Reason Start Time Stop Time Status Last Admin Dose Admin Acetaminophen (Tylenol) 650 mg Q4H PRN ORAL fever 10/11/19 08:30 11/09/19 08:29 10/25/19 13:02 Acetaminophen (Tylenol) 650 mg Q4H PRN RECTAL Temp >100.5 10/14/19 06:30 11/13/19 06:29 Allopurinol (allopurinoL) 300 mg DAILY ORAL 10/24/19 09:00 11/23/19 08:59 10/26/19 09:11 Amlodipine Besylate (Norvasc) 10 mg DAILY ORAL 10/21/19 09:00 11/20/19 08:59 10/26/19 09:12 Aspirin (Ecotrin) 81 mg DAILY ORAL 10/11/19 09:00 11/25/19 08:59 10/26/19 09:12 Atorvastatin Calcium (Lipitor) 40 mg BEDTIME ORAL 10/12/19 21:00 01/10/20 20:59 10/26/19 21:06 Clonidine HCl (Catapres Tab) 0.1 mg Q4H PRN ORAL Blood pressure over 160 systol 10/11/19 08:30 01/08/20 08:29 10/25/19 05:10 Dextrose (Dextrose 50%) 25 ml Q30M PRN IV Hypoglycemia 10/11/19 08:30 01/08/20 11:29 Dextrose (Dextrose 50%) 50 ml Q30M PRN IV Hypoglycemia 10/11/19 08:30 01/08/20 11:29 Docusate Sodium (Colace) 100 mg THREE TIMES A DAY ORAL 10/11/19 09:00 11/09/19 17:59 10/26/19 09:12 Furosemide (Lasix) 40 mg DAILY ORAL 10/27/19 09:00 11/26/19 08:59 Gabapentin (Neurontin) 200 mg THREE TIMES A DAY ORAL 10/16/19 13:00 11/09/19 12:59 10/26/19 17:30 Heparin Sodium/ Dextrose 500 ml @ 43.953 mls/ hr ADJUST PER PROTOCOL IV 10/26/19 19:45 11/25/19 19:44 10/26/19 19:54 Insulin Aspart (NovoLOG) BEFORE MEALS AND HS SUBQ 10/11/19 11:30 01/08/20 11:29 10/26/19 21:08 Isosorbide Mononitrate (Imdur) 30 mg DAILY ORAL 10/13/19 09:00 11/12/19 08:59 10/26/19 09:12 Latanoprost (Xalatan) 1 drop BEDTIME BOTH EYES 10/17/19 21:00 11/16/19 20:59 10/26/19 21:08 Magnesium Oxide (Mag-Ox 400mg) 400 mg THREE TIMES A DAY ORAL 10/26/19 13:00 10/27/19 12:59 10/26/19 17:30 Nitroglycerin (Ntg) 0.4 mg Q5M PRN SL Prn Chest Pain 10/11/19 08:30 11/09/19 11:29 Ondansetron HCl (Zofran) 4 mg Q6H PRN IVP Nausea & Vomiting 10/11/19 08:30 11/09/19 08:29 Pantoprazole (Protonix) 40 mg EVERY 12 HOURS ORAL 10/14/19 21:00 11/13/19 20:59 10/26/19 21:06 Polyethylene Glycol (Miralax) 17 gm DAILYPRN PRN ORAL Constipation 10/11/19 08:30 11/09/19 08:29 Warfarin Sodium (Coumadin per pharmacy) 1 ea DAILY PRN MISC Per rx protocol 10/26/19 10:15 11/25/19 10:14 Warfarin Sodium (Coumadin) 5 mg ONCE ORAL 10/27/19 17:00 10/27/19 18:00 Assessment/Plan Assessment/Plan ASSESSMENT Severe sepsis with E coli bacteremia due to UTI E. coli UTI/pyelonephritis NSTEMI Suspected [id number] out AFib with RVR/permanent DM ARF on CKD Anemia Morbid obesity HTN Toxic metabolic encephalopathy PLAN OF CARE tele O2 titrate to keep sat above 90%, pulmonary toilet, pulse ox stable on RA v fup CXR in am abx as per ID recs COVID-19 10/09 and 10/10 NGT , also 10/22 NGT 10/09 BCX E coli, UCX E Coli 10/10 UCX + GNR, 10/10 BCX NGTD repeated BCX 10/13 and 10/14 NGT UCX and BCX 10/20 NGT now completed abx low grade fevers last night and this am, further management as per ID recs Echo with pEF troponin trending down antiplatelet therapy with ASA, Imdur, statin , off BB as per cardio recs now due to tania Heparin gtt for a/c and possible PE with transitiion to Coumadin, INR 1.6 per cardio likely NSTEMI type II in setting of sepsis, asymptomatic cardio recommended noninvasive cardiac work-up versus cardiac cath once stable from ID standpoint repeated ECHO 10/21 no results in EMR, per cardio still good LV function off beta-blockade now due to tania , HR controlled , tania at night Venous BLE NGT declined VQ scan monitor renal parameters, lytes, correct electrolytes as needed fup with nephro recommendation creat trending down monitor for LLQ abd pain, felt could be due to pyelo, but consider further imaging if not resolved BS management with SSI monitor H&H with goal to keep hemoglobin above 7 stool OB NGT GI prophylaxis case discussed and evaluated by supervising physician Edilma Atkins [employer]IST Oct 27, 2019 08:20
[2019-10-27] MEDS ORDERED: Albuterol/Ipratropium 3ml neb HHN PRN (08:30)
[2019-10-27] MEDS: Aspirin EC 81mg tab ORAL SCH (08:53)
[2019-10-27] MEDS: Imdur 30mg tab ORAL SCH (08:53)
[2019-10-27] MEDS: Magnesium Oxide 400mg tab ORAL SCH (08:54)
[2019-10-27] MEDS: Furosemide 40mg tab ORAL SCH (08:54)
[2019-10-27] MEDS: Docusate 100mg cap ORAL SCH ×3 (08:55→17:44)
--- NOTE | 2019-10-27 10:39 | Nephrology Progress Note ---
Assessment/Plan Problem List: (1) Renal failure (ARF), acute on chronic (2) Diabetes mellitus (3) Morbid obesity (4) Chronic atrial fibrillation (5) History of DVT (deep vein thrombosis) (6) Anemia (7) NSTEMI (non-ST elevated myocardial infarction) (8) Sepsis (9) Pyelonephritis Assessment Renal failure, most likely acute on chronic. Sepsis, leukocytosis, fever, suspected 2019 novel coronavirus infection. Encephalopathy most likely toxic metabolic UTI/pyelonephritis Anemia Atrial fibrillation chronic, with fast ventricular rate. Diabetes mellitus Morbid obesity/limited mobility History of DVT Elevated troponin I Lactic acidosis Plan October 26: Serum creatinine lowered to 2.2. Clinically appears to be stable. Continue per consultants. October 25: Serum creatinine 2.5 stable. Chest x-ray reviewed. Mild CHF present. Will restart Lasix and adjust dose as needed . October 24: Serum creatinine rising. Patient has been on IV Lasix since October 22. Will hold IV Lasix, and check chest x-ray for evidence of CHF. Continue to monitor renal parameters. October 23: Status quo. Serum creatinine stable. Mag supplement IV given. Remains anemic hemoglobin stable. Full code. October 22: No chemistry panel done today. Status quo. Remains full code. Medication list reviewed. October 21: Labs reviewed. Serum creatinine stable. Patient remains full code. Continue per consultants. Urinalysis results from yesterday noted. Culture so far negative. October 20: Labs are reviewed. Creatinine 2.1. White blood cells within normal range. Blood pressure is reasonably controlled. Medication reviewed and adjusted. Coreg dose increased. UA and culture ordered. October 19: Lab reviewed. Creatinine lower. Will adjust blood pressure medication. Leukocytosis resolved. October 18: No can panel drawn today. Clinically stable. Will check labs in a.m. Continue per consultants. October 17: Serum creatinine stable lowering. Continues to improve. Full code. Continue per consultants. October 16: Serum creatinine lowering. White blood cell is lowering. Clinically improving. Continue per consultants. October 15: Serum creatinine lowered to 2.6. White blood cell count is also down to 17,000. Not much to add from renal standpoint of view. Continue per cardiology and per ID. October 14: Serum creatinine 2.8. No new changes. Continue per logging specialist. Leukocytosis persists. Remains on meropenem. Continue per ID. October 13: Serum creatinine continues to lower. Troponin level also declining. Continue per cardiology management. Statins was restarted by cardiology. Continue to monitor renal parameters. October 12: Serum creatinine lowering. Troponin I is also declining. Continue per cardiology management. Will continue to follow-up renal parameters and CPK level. October 11: Statins stopped due to worsening LFTs. 1 dose of Plavix given. Imdur started. Serum creatinine stable. Continue per cardiology. Continue to monitor renal parameters and CPK. Monitor troponin I and CPK Aspirin, Coreg ,nitrate for elevated troponin Antibiotics Echocardiogram results noted Kidney ultrasound results pending Monitor urine output and renal parameters Keep the blood pressure and blood sugar in check Coumadin for DVT and atrial fibrillation IV Protonix Subjective ROS Limited/Unobtainable: No Constitutional: Reports: malaise, weakness Objective Objective Last 24 Hour Vital Signs Date Time Temp Pulse Resp B/P (MAP) Pulse Ox O2 Delivery O2 Flow Rate FiO2 10/27/19 08:55 73 138/80 10/27/19 08:53 138/80 10/27/19 08:00 98.1 73 20 138/80 (99) 95 10/27/19 04:00 52 10/27/19 04:00 99.5 65 19 133/79 (97) 95 10/27/19 00:00 62 10/27/19 00:00 98.8 62 19 145/81 (102) 94 10/26/19 21:00 Room Air 10/26/19 20:00 66 10/26/19 20:00 100.0 68 19 116/80 (92) 95 10/26/19 16:00 98.6 90 20 126/90 (102) 98 10/26/19 16:00 81 10/26/19 12:00 72 10/26/19 12:00 97.9 76 20 151/76 (101) 96 Intake and Output 10/26/19 10/27/19 19:00 07:00 Intake Total 424.1488 ml 943.924 ml Output Total 500 ml 700 ml Balance -75.8512 ml 243.924 ml Intake Oral 500 ml IV Total 424.1488 ml 443.924 ml Output Urine Total 500 ml 700 ml Current Medications Medications (Trade) Dose Ordered Sig/Adria Route PRN Reason Start Time Stop Time Status Last Admin Dose Admin Acetaminophen (Tylenol) 650 mg Q4H PRN ORAL fever 10/11/19 08:30 11/09/19 08:29 10/25/19 13:02 Acetaminophen (Tylenol) 650 mg Q4H PRN RECTAL Temp >100.5 10/14/19 06:30 11/13/19 06:29 Albuterol/ Ipratropium (Albuterol/ Ipratropium) 3 ml Q4HRT PRN HHN sob 10/27/19 08:30 11/01/19 08:29 Allopurinol (allopurinoL) 300 mg DAILY ORAL 10/24/19 09:00 11/23/19 08:59 10/27/19 08:52 Amlodipine Besylate (Norvasc) 10 mg DAILY ORAL 10/21/19 09:00 11/20/19 08:59 10/27/19 08:55 Aspirin (Ecotrin) 81 mg DAILY ORAL 10/11/19 09:00 11/25/19 08:59 10/27/19 08:53 Atorvastatin Calcium (Lipitor) 40 mg BEDTIME ORAL 10/12/19 21:00 01/10/20 20:59 10/26/19 21:06 Clonidine HCl (Catapres Tab) 0.1 mg Q4H PRN ORAL Blood pressure over 160 systol 10/11/19 08:30 01/08/20 08:29 10/25/19 05:10 Dextrose (Dextrose 50%) 25 ml Q30M PRN IV Hypoglycemia 10/11/19 08:30 01/08/20 11:29 Dextrose (Dextrose 50%) 50 ml Q30M PRN IV Hypoglycemia 10/11/19 08:30 01/08/20 11:29 Docusate Sodium (Colace) 100 mg THREE TIMES A DAY ORAL 10/11/19 09:00 11/09/19 17:59 10/27/19 08:55 Furosemide (Lasix) 40 mg DAILY ORAL 10/27/19 09:00 11/26/19 08:59 10/27/19 08:54 Gabapentin (Neurontin) 200 mg THREE TIMES A DAY ORAL 10/16/19 13:00 11/09/19 12:59 10/27/19 08:53 Heparin Sodium/ Dextrose 500 ml @ 43.953 mls/ hr ADJUST PER PROTOCOL IV 10/26/19 19:45 11/25/19 19:44 10/26/19 19:54 Insulin Aspart (NovoLOG) BEFORE MEALS AND HS SUBQ 10/11/19 11:30 01/08/20 11:29 10/26/19 21:08 Isosorbide Mononitrate (Imdur) 30 mg DAILY ORAL 10/13/19 09:00 11/12/19 08:59 10/27/19 08:53 Latanoprost (Xalatan) 1 drop BEDTIME BOTH EYES 10/17/19 21:00 11/16/19 20:59 10/26/19 21:08 Magnesium Oxide (Mag-Ox 400mg) 400 mg THREE TIMES A DAY ORAL 10/26/19 13:00 10/27/19 12:59 10/27/19 08:54 Nitroglycerin (Ntg) 0.4 mg Q5M PRN SL Prn Chest Pain 10/11/19 08:30 11/09/19 11:29 Ondansetron HCl (Zofran) 4 mg Q6H PRN IVP Nausea & Vomiting 10/11/19 08:30 11/09/19 08:29 Pantoprazole (Protonix) 40 mg EVERY 12 HOURS ORAL 10/14/19 21:00 11/13/19 20:59 10/27/19 08:54 Polyethylene Glycol (Miralax) 17 gm DAILYPRN PRN ORAL Constipation 10/11/19 08:30 11/09/19 08:29 Warfarin Sodium (Coumadin per pharmacy) 1 ea DAILY PRN MISC Per rx protocol 10/26/19 10:15 11/25/19 10:14 Warfarin Sodium (Coumadin) 5 mg ONCE ORAL 10/27/19 17:00 10/27/19 18:00 Laboratory Tests 10/26/19 17:55: Activated Partial Thromboplast Time > 150*H 10/27/19 00:50: Activated Partial Thromboplast Time 74H, Prothrombin Time 16.7H, Prothromb Time International Ratio 1.6H 10/27/19 04:00: White Blood Count 7.0, Red Blood Count 3.55L, Hemoglobin 9.6L, Hematocrit 31.5L , Mean Corpuscular Volume 89, Mean Corpuscular Hemoglobin 27.2, Mean Corpuscular Hemoglobin Concent 30.6L, Red Cell Distribution Width 14.9H, Platelet Count 399, Mean Platelet Volume 7.5, Neutrophils (%) (Auto) 64.6, Lymphocytes (%) (Auto) 21.5, Monocytes (%) (Auto) 11.6H, Eosinophils (%) (Auto) 1.6, Basophils (%) (Auto) 0.7, Sodium Level 137, Potassium Level 3.8, Chloride Level 100, Carbon Dioxide Level 28, Anion Gap 9, Blood Urea Nitrogen 23H, Creatinine 2.2H, Estimat Glomerular Filtration Rate 26.4, Glucose Level 141H, Calcium Level 9.2 Height (Feet): 5 Height (Inches): 3.00 Weight (Pounds): 323 General Appearance: no apparent distress Cardiovascular: normal rate Respiratory/Chest: decreased breath sounds Abdomen: other - Obese Objective No change Pantera Wallace MD Oct 27, 2019 10:39
--- NOTE | 2019-10-27 11:16 | NUR ---
PT NOTE Attempted to see patient for PT treatment. Patient declining to participate with PT. Shannon RN notified, will follow up tomorrow.
[2019-10-27 11:34] LABS: ALANINE AMINOTRANSFERASE 12 U/L (12-78); ALBUMIN 2.5 G/DL (3.4-5.0); ALKALINE PHOSPHATASE 121 U/L (46-116); ASPARTATE AMINO TRANSFERASE 33 U/L (15-37); BILIRUBIN,DIRECT 0.1 MG/DL (0.0-0.3); BILIRUBIN,TOTAL 0.2 MG/DL (0.2-1.0); PHOSPHORUS 4.8 MG/DL (2.5-4.9)
[2019-10-27 12:00] VITALS: BP 102/78
--- NOTE | 2019-10-27 14:37 | Internal Med Progress Note ---
Subjective Date of Service: Oct 27, 2019 Physician Name BlankenshipJohny Attending Physician Aleksandr Vega MD Current Medications Medications (Trade) Dose Ordered Sig/Adria Route PRN Reason Start Time Stop Time Status Last Admin Dose Admin Acetaminophen (Tylenol) 650 mg Q4H PRN ORAL fever 10/11/19 08:30 11/09/19 08:29 10/25/19 13:02 Acetaminophen (Tylenol) 650 mg Q4H PRN RECTAL Temp >100.5 10/14/19 06:30 11/13/19 06:29 Albuterol/ Ipratropium (Albuterol/ Ipratropium) 3 ml Q4HRT PRN HHN sob 10/27/19 08:30 11/01/19 08:29 Allopurinol (allopurinoL) 300 mg DAILY ORAL 10/24/19 09:00 11/23/19 08:59 10/27/19 08:52 Amlodipine Besylate (Norvasc) 10 mg DAILY ORAL 10/21/19 09:00 11/20/19 08:59 10/27/19 08:55 Aspirin (Ecotrin) 81 mg DAILY ORAL 10/11/19 09:00 11/25/19 08:59 10/27/19 08:53 Atorvastatin Calcium (Lipitor) 40 mg BEDTIME ORAL 10/12/19 21:00 01/10/20 20:59 10/26/19 21:06 Clonidine HCl (Catapres Tab) 0.1 mg Q4H PRN ORAL Blood pressure over 160 systol 10/11/19 08:30 01/08/20 08:29 10/25/19 05:10 Dextrose (Dextrose 50%) 25 ml Q30M PRN IV Hypoglycemia 10/11/19 08:30 01/08/20 11:29 Dextrose (Dextrose 50%) 50 ml Q30M PRN IV Hypoglycemia 10/11/19 08:30 01/08/20 11:29 Docusate Sodium (Colace) 100 mg THREE TIMES A DAY ORAL 10/11/19 09:00 11/09/19 17:59 10/27/19 12:28 Furosemide (Lasix) 40 mg DAILY ORAL 10/27/19 09:00 11/26/19 08:59 10/27/19 08:54 Gabapentin (Neurontin) 200 mg THREE TIMES A DAY ORAL 10/16/19 13:00 11/09/19 12:59 10/27/19 12:28 Heparin Sodium/ Dextrose 500 ml @ 43.953 mls/ hr ADJUST PER PROTOCOL IV 10/26/19 19:45 11/25/19 19:44 10/26/19 19:54 Insulin Aspart (NovoLOG) BEFORE MEALS AND HS SUBQ 10/11/19 11:30 01/08/20 11:29 10/27/19 12:34 Isosorbide Mononitrate (Imdur) 30 mg DAILY ORAL 10/13/19 09:00 11/12/19 08:59 10/27/19 08:53 Latanoprost (Xalatan) 1 drop BEDTIME BOTH EYES 10/17/19 21:00 11/16/19 20:59 10/26/19 21:08 Nitroglycerin (Ntg) 0.4 mg Q5M PRN SL Prn Chest Pain 10/11/19 08:30 11/09/19 11:29 Ondansetron HCl (Zofran) 4 mg Q6H PRN IVP Nausea & Vomiting 10/11/19 08:30 11/09/19 08:29 Pantoprazole (Protonix) 40 mg EVERY 12 HOURS ORAL 10/14/19 21:00 11/13/19 20:59 10/27/19 08:54 Polyethylene Glycol (Miralax) 17 gm DAILYPRN PRN ORAL Constipation 10/11/19 08:30 11/09/19 08:29 Warfarin Sodium (Coumadin per pharmacy) 1 ea DAILY PRN MISC Per rx protocol 10/26/19 10:15 11/25/19 10:14 Warfarin Sodium (Coumadin) 5 mg ONCE ORAL 10/27/19 17:00 10/27/19 18:00 Allergies: Coded Allergies: CODEINE (Verified Allergy, Unknown, 10/10/19) ROS Limited/Unobtainable: No Constitutional: Reports: no symptoms HEENT: Reports: no symptoms Cardiovascular: Reports: no symptoms Respiratory: Reports: no symptoms Gastrointestinal/Abdominal: Reports: no symptoms Genitourinary: Reports: no symptoms Neurologic/Psychiatric: Reports: no symptoms Subjective 74 YO F admitted with altered mental status and fever. Now UTI and sepsis. Cover for Int Med-Dr Vega. Refused V/Q scan Objective Last Vital Signs Date Time Temp Pulse Resp B/P (MAP) Pulse Ox O2 Delivery O2 Flow Rate FiO2 10/27/19 12:00 63 10/27/19 12:00 97.9 20 102/78 (86) 94 10/27/19 09:00 Room Air 10/20/19 07:47 21 Laboratory Tests Test 10/26/19 17:55 10/27/19 00:50 10/27/19 04:00 10/27/19 05:37 Activated Partial Thromboplast Time > 150 SEC (23-33) *H 74 SEC (23-33) H Prothrombin Time 16.7 SEC (9.30-11.50) H Prothromb Time International Ratio 1.6 (0.9-1.1) H White Blood Count 7.0 K/UL (4.8-10.8) Red Blood Count 3.55 M/UL (4.20-5.40) L Hemoglobin 9.6 G/DL (12.0-16.0) L Hematocrit 31.5 % (37.0-47.0) L Mean Corpuscular Volume 89 FL (80-99) Mean Corpuscular Hemoglobin 27.2 PG (27.0-31.0) Mean Corpuscular Hemoglobin Concent 30.6 G/DL (32.0-36.0) L Red Cell Distribution Width 14.9 % (11.6-14.8) H Platelet Count 399 K/UL (150-450) Mean Platelet Volume 7.5 FL (6.5-10.1) Neutrophils (%) (Auto) 64.6 % (45.0-75.0) Lymphocytes (%) (Auto) 21.5 % (20.0-45.0) Monocytes (%) (Auto) 11.6 % (1.0-10.0) H Eosinophils (%) (Auto) 1.6 % (0.0-3.0) Basophils (%) (Auto) 0.7 % (0.0-2.0) Sodium Level 137 MMOL/L (136-145) Potassium Level 3.8 MMOL/L (3.5-5.1) Chloride Level 100 MMOL/L (98-107) Carbon Dioxide Level 28 MMOL/L (21-32) Anion Gap 9 mmol/L (5-15) Blood Urea Nitrogen 23 mg/dL (7-18) H Creatinine 2.2 MG/DL (0.55-1.30) H Estimat Glomerular Filtration Rate 26.4 mL/min (>60) Glucose Level 141 MG/DL (74-106) H Calcium Level 9.2 MG/DL (8.5-10.1) Phosphorus Level 4.8 MG/DL (2.5-4.9) Magnesium Level 1.7 MG/DL (1.8-2.4) L Total Bilirubin 0.2 MG/DL (0.2-1.0) Direct Bilirubin 0.1 MG/DL (0.0-0.3) Aspartate Amino Transf (AST/SGOT) 33 U/L (15-37) Alanine Aminotransferase (ALT/SGPT) 12 U/L (12-78) Alkaline Phosphatase 121 U/L (46-116) H Total Protein 8.4 G/DL (6.4-8.2) H Albumin 2.5 G/DL (3.4-5.0) L Intake and Output 10/26/19 10/27/19 19:00 07:00 Intake Total 424.1488 ml 943.924 ml Output Total 500 ml 700 ml Balance -75.8512 ml 243.924 ml Intake Oral 500 ml IV Total 424.1488 ml 443.924 ml Output Urine Total 500 ml 700 ml Objective PHYSICAL EXAMINATION: GENERAL: Patient is well-developed, well-nourished, slightly obese female, in no apparent distress. HEENT: Eyes, pupils are equal and responsive to light and accommodation. Extraocular movements are intact. NECK: Supple. No lymphadenopathy. CHEST: Lungs are clear to auscultation bilaterally without wheezes or rales. CARDIOVASCULAR: Regular rate. S1, S2 are normal without murmurs, rubs, or gallops. ABDOMEN: Soft, nontender, nondistended. Positive bowel sounds. No evidence of hepatosplenomegaly. Currently no rebound or guarding noted. EXTREMITIES: Negative for clubbing, cyanosis, or edema. RECTAL/GENITAL: Not performed. NEUROLOGIC: Cranial nerves II to XII grossly intact without focal deficits Assessment/Plan Assessment/Plan ASSESSMENT: This is a 74-year-old female. 1. Sepsis=E. Coli 2. UTI=E. Coli 3. Altered mental status. 4. Leukocytosis. 5. Elevated troponin. 6. Atrial fibrillation. 7. Diabetes type 2. 8. Hypertension. 9. Hyperthyroidism. 10. Coronary artery disease. 11. Renal failure. 12. Hypercholesterolemia. 13. Chronic lymphedema of the bilateral lower extremities. 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 Urinary Tract infection-E. Coli ABX=ceftriaxone, S/P meropenem. Infectious Disease=Dr. Mays. We will follow recommendations of Infectious Disease. 2. Sepsis=E. Coli Await culture and sensitivity result. Continue meropenem per ID. 3. Altered mental status. Resolved 4. Leukocytosis. Resolved 5. Elevated troponin. A Cardiology consultation has been obtained with Dr. Arun Barker. 6. Atrial fibrillation. Continue Coumadin as above. A Cardiology consultation has been obtained with Dr. Arun Barker. 7. Diabetes type 2. NovoLog sliding scale has been instituted. 8. Hypertension. Patient is currently hypotensive. Hold amlodipine as above. 9. Hyperthyroidism. Continue methimazole as above. 10. Coronary artery disease. Patient has elevated troponin. A Cardiology consultation has been obtained with Dr. Arun Barker. 11. Renal failure. A Nephrology consultation has been obtained with Dr. Pantera Wallace. 12. Hypercholesterolemia. Continue simvastatin as above. 13. Chronic lymphedema of bilateral lower extremities. 14. Will need CT abdomen/pelvis to R/O abscess-see ID note. 15. Await cardiac cath-see cardiology note 16. Refused V/Q scan to R/O pulmonary embolism; Continue heparin drip unitl coumadin therapeutic 17. Non invasive W/U vs cardiac cath 18. Discharge planning: [facility] Johny Blankenship MD Oct 27, 2019 14:37
[2019-10-27 16:00] VITALS: BP 140/71
[2019-10-27] MEDS ORDERED: Warfarin Sodium 5mg ORAL SCH (17:00)
--- NOTE | 2019-10-27 17:25 | Cardiology Progress Note ---
Assessment/Plan Problem List: (1) Morbid obesity (2) Diabetes mellitus (3) Chronic atrial fibrillation (4) NSTEMI (non-ST elevated myocardial infarction) (5) Elevated troponin I level (6) Pyelonephritis (7) Sepsis Status: stable, progressing Status Narrative AF- permanent Moderate pulmonary hypertension - PA pressures 50s by ECHO hx of [place], not on CPAP CKD Mild troponin elevation, type 2 NSTEMI Morbid obesity UTI -treated Assessment/Plan Continue anticoagulation - IV heparin transitioning to warfarin. INR not yet therapeutic Ventricular rates controlled - coreg 6.25 mg bid dc'd due to bradycardia. Amlodipine for htn Will add hydralazine for better bp control. asa, plavix, statin and b idalia for CAD. 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 Barker. Mrs Funk is awake, alert. She is comfortable at rest, off o2 Objective Last 24 Hour Vital Signs Date Time Temp Pulse Resp B/P (MAP) Pulse Ox O2 Delivery O2 Flow Rate FiO2 10/27/19 12:00 63 10/27/19 12:00 97.9 75 20 102/78 (86) 94 10/27/19 09:00 Room Air 10/27/19 08:55 73 138/80 10/27/19 08:53 138/80 10/27/19 08:00 52 10/27/19 08:00 98.1 73 20 138/80 (99) 95 10/27/19 04:00 52 10/27/19 04:00 99.5 65 19 133/79 (97) 95 10/27/19 00:00 62 10/27/19 00:00 98.8 62 19 145/81 (102) 94 10/26/19 21:00 Room Air 10/26/19 20:00 66 10/26/19 20:00 100.0 68 19 116/80 (92) 95 General Appearance: WD/WN, obese EENT: PERRL/EOMI Neck: supple, no JVD Rhythm: Afib Cardiovascular: normal rate, no gallop/murmur, irregularly irregular Respiratory/Chest: lungs clear, other - clear anteriorly Abdomen: non tender, soft Extremities: trace edema Intake and Output 10/26/19 10/27/19 19:00 07:00 Intake Total 424.1488 ml 943.924 ml Output Total 500 ml 700 ml Balance -75.8512 ml 243.924 ml Intake Oral 500 ml IV Total 424.1488 ml 443.924 ml Output Urine Total 500 ml 700 ml Laboratory Tests Test 10/26/19 17:55 10/27/19 00:50 10/27/19 04:00 10/27/19 05:37 Activated Partial Thromboplast Time > 150 SEC (23-33) *H 74 SEC (23-33) H Prothrombin Time 16.7 SEC (9.30-11.50) H Prothromb Time International Ratio 1.6 (0.9-1.1) H White Blood Count 7.0 K/UL (4.8-10.8) Red Blood Count 3.55 M/UL (4.20-5.40) L Hemoglobin 9.6 G/DL (12.0-16.0) L Hematocrit 31.5 % (37.0-47.0) L Mean Corpuscular Volume 89 FL (80-99) Mean Corpuscular Hemoglobin 27.2 PG (27.0-31.0) Mean Corpuscular Hemoglobin Concent 30.6 G/DL (32.0-36.0) L Red Cell Distribution Width 14.9 % (11.6-14.8) H Platelet Count 399 K/UL (150-450) Mean Platelet Volume 7.5 FL (6.5-10.1) Neutrophils (%) (Auto) 64.6 % (45.0-75.0) Lymphocytes (%) (Auto) 21.5 % (20.0-45.0) Monocytes (%) (Auto) 11.6 % (1.0-10.0) H Eosinophils (%) (Auto) 1.6 % (0.0-3.0) Basophils (%) (Auto) 0.7 % (0.0-2.0) Sodium Level 137 MMOL/L (136-145) Potassium Level 3.8 MMOL/L (3.5-5.1) Chloride Level 100 MMOL/L (98-107) Carbon Dioxide Level 28 MMOL/L (21-32) Anion Gap 9 mmol/L (5-15) Blood Urea Nitrogen 23 mg/dL (7-18) H Creatinine 2.2 MG/DL (0.55-1.30) H Estimat Glomerular Filtration Rate 26.4 mL/min (>60) Glucose Level 141 MG/DL (74-106) H Calcium Level 9.2 MG/DL (8.5-10.1) Phosphorus Level 4.8 MG/DL (2.5-4.9) Magnesium Level 1.7 MG/DL (1.8-2.4) L Total Bilirubin 0.2 MG/DL (0.2-1.0) Direct Bilirubin 0.1 MG/DL (0.0-0.3) Aspartate Amino Transf (AST/SGOT) 33 U/L (15-37) Alanine Aminotransferase (ALT/SGPT) 12 U/L (12-78) Alkaline Phosphatase 121 U/L (46-116) H Total Protein 8.4 G/DL (6.4-8.2) H Albumin 2.5 G/DL (3.4-5.0) Juliet Gomez MD Oct 27, 2019 17:25
--- NOTE | 2019-10-27 19:10 | NUR ---
HAND-OFF: Report given to Ramila/RN, Patient is in stable condition, Endorsed plan of care.
[2019-10-27] MEDS: Heparin 25,000u/D5W 500ml 500 ML IV SCH (19:47)
[2019-10-27 20:00] VITALS: BP 143/78
--- NOTE | 2019-10-27 20:05 | NUR ---
NURSE NOTES: Received patient report from RUTHANN Ortega. Patient is AO x 4. She shows no signs of distress or pain at the time. New heparin bag hung at 15 units/ kg/ hr. IV is intact and patent. There are no signs of erythema, infiltration or bleeding. Bed is in the lowest position possible, call light within reach, side rails up x 3. Will continue plan of care.
[2019-10-27] MEDS: Atorvastatin 20mg tab ORAL SCH (20:32)
[2019-10-27] MEDS: Latanoprost 0.005% Opth 2.5ml Soln BOTH EYES SCH (20:32)
[2019-10-27] MEDS: HydrALAZINE 25mg tab ORAL SCH (20:33)
[2019-10-28] VITALS: BP 144/64
[2019-10-28 04:00] VITALS: BP 161/86
[2019-10-28 04:30] LABS: BASOPHILS % (AUTO) 1.7 % (0.0-2.0); HEMATOCRIT 28.4 % (37.0-47.0); HEMOGLOBIN 8.9 G/DL (12.0-16.0); LYMPHOCYTES % (AUTO) 30.7 % (20.0-45.0); MEAN CORPUSCULAR VOLUME 87 FL (80-99); MONOCYTES % (AUTO) 11.2 % (1.0-10.0); NEUTROPHILS % (AUTO) 54.4 % (45.0-75.0); PLATELET COUNT 364 K/UL (150-450); RED BLOOD COUNT 3.27 M/UL (4.20-5.40); RED CELL DISTRIBUTION WIDTH 14.7 % (11.6-14.8); WHITE BLOOD COUNT 5.3 K/UL (4.8-10.8)
[2019-10-28 04:38] LABS: INR 1.2 (0.9-1.1)
[2019-10-28 04:49] LABS: ANION GAP 8 mmol/L (5-15); BLOOD UREA NITROGEN 21 mg/dL (7-18); CALCIUM 9.2 MG/DL (8.5-10.1); CARBON DIOXIDE 28 MMOL/L (21-32); CHLORIDE 102 MMOL/L (98-107); CREATININE 2.4 MG/DL (0.55-1.30); SODIUM 137 MMOL/L (136-145)
[2019-10-28] MEDS: NovoLOG Insulin Flexpen SUBQ SCH ×4 (06:30→21:01)
--- NOTE | 2019-10-28 07:30 | NUR ---
NURSE NOTES: Received pt from RUTHANN Mcgrath, pt is awake and alert, pt is in RA, no SOB or acute respiratory distress noted. pt is on continues heart monitoring, pt has intact iv access RH 22G hep drip is running. Pt is eating breakfast by observation. pt had BM and sacral dressing changed as order. all needs attended, bed is locked and is in the lowest position, call light within easy reach. will continue to monitor.
--- NOTE | 2019-10-28 07:33 | NUR ---
HAND-OFF: Report given to RUTHANN Peña. Patient shows no signs of distress or pain at the time. Endorsed plan of care.
[2019-10-28] MEDS: Heparin 25,000u/D5W 500ml 500 ML IV SCH ×2 (07:46→19:09)
[2019-10-28 08:01] VITALS: BP 147/64
[2019-10-28] MEDS: Imdur 30mg tab ORAL SCH (08:33)
[2019-10-28] MEDS: Furosemide 40mg tab ORAL SCH (08:33)
[2019-10-28] MEDS: HydrALAZINE 25mg tab ORAL SCH ×2 (08:33→20:59)
[2019-10-28] MEDS: Docusate 100mg cap ORAL SCH ×3 (08:33→17:03)
[2019-10-28] MEDS: Aspirin EC 81mg tab ORAL SCH (08:34)
--- NOTE | 2019-10-28 10:06 | NUR ---
CASE MANAGEMENT:REVIEW 10/28/19 SI: BACTEREMIA. UTI. AMI COVID 19 NOT DETECTED 97.9 75 20 102/78 94% ON RA PT+13.4 INR-1.2 PTT+81 IS: HEPARIN GTT IV ROCEPHIN Q24 IMDUR PO QD ASA PO QD COREG PO Q12 PROTONIX Q12 NEURONTIN PO TID : TELEMETRY STATUS DCP: FROM [facility] PLAN: WANTS PATIENT TO AFEBRILE FOR 24HRS PRIOR TO DISCHARGE
--- NOTE | 2019-10-28 10:30 | NUR ---
NURSE NOTES: Received pt from GASOLINE FINISHER Jillian,all admision assessments and instructions done and pt verbally confirmed to understand all. pt is awake and alert, pt has NC 2LMP, pt is on continues heart monitoring, pt has intact iv access LAC 20G SL. Dr Parra group are aware about admission, MD is coming to visit pt. all belongings checked with RN and are with pt. pt has meds will sent to pharmacy. all needs attended, bed is locked and is in the lowest position, call light within easy reach. will continue to monitor. Addendum: 10/28/19 at 1047 by Casey Bojorquez RN ERROR Wrong pt.
[2019-10-28] MEDS ORDERED: traMADol 50mg tab ORAL PRN (11:30)
--- NOTE | 2019-10-28 11:33 | Pulmonology Progress Note ---
Subjective ROS Limited/Unobtainable: No Interval Events: doing better Gastrointestinal/Abdominal: Reports: other - pain in left lower abdominal quatdrant Musculoskeletal: Reports: no symptoms Allergies: Coded Allergies: CODEINE (Verified Allergy, Unknown, 10/10/19) Objective Last 24 Hour Vital Signs Date Time Temp Pulse Resp B/P (MAP) Pulse Ox O2 Delivery O2 Flow Rate FiO2 10/28/19 09:00 Room Air 10/28/19 08:55 84 10/28/19 08:34 91 147/64 10/28/19 08:34 99.0 10/28/19 08:33 147/64 10/28/19 08:33 147/64 10/28/19 08:01 99.9 91 20 147/64 (91) 96 10/28/19 04:00 98.8 71 19 161/86 (111) 95 10/28/19 04:00 53 10/28/19 00:00 74 10/28/19 00:00 99.0 60 20 144/64 (90) 93 10/27/19 21:00 Room Air 10/27/19 20:33 143/78 10/27/19 20:15 78 18 95 Room Air 21 10/27/19 20:00 100.0 64 20 143/78 (99) 94 10/27/19 20:00 62 10/27/19 16:00 98.2 58 20 140/71 (94) 95 10/27/19 16:00 54 10/27/19 12:00 63 10/27/19 12:00 97.9 75 20 102/78 (86) 94 Intake and Output 10/27/19 10/28/19 19:00 07:00 Intake Total 600 ml 449.050 ml Output Total 1200 ml 200 ml Balance -600 ml 249.050 ml Intake Oral 600 ml IV Total 449.050 ml Output Urine Total 1200 ml 200 ml # Voids 1 General Appearance: WD/WN HEENT: normocephalic, atraumatic Respiratory: chest wall non-tender, lungs clear Breasts: no masses Cardiovascular: normal peripheral pulses Abdomen: normal bowel sounds, soft, non tender Genitourinary: normal external genitalia Skin: no rash 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 II-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 grossly normal Laboratory Tests 10/28/19 04:10: White Blood Count 5.3, Red Blood Count 3.27L, Hemoglobin 8.9L, Hematocrit 28.4L , Mean Corpuscular Volume 87, Mean Corpuscular Hemoglobin 27.2, Mean Corpuscular Hemoglobin Concent 31.3L, Red Cell Distribution Width 14.7, Platelet Count 364, Mean Platelet Volume 8.6, Neutrophils (%) (Auto) 54.4, Lymphocytes (%) (Auto) 30.7, Monocytes (%) (Auto) 11.2H, Eosinophils (%) (Auto) 2.0, Basophils (%) (Auto) 1.7, Prothrombin Time 13.4H, Prothromb Time International Ratio 1.2H, Activated Partial Thromboplast Time 81H, Sodium Level 137, Potassium Level 4.0, Chloride Level 102, Carbon Dioxide Level 28, Anion Gap 8, Blood Urea Nitrogen 21H, Creatinine 2.4H, Estimat Glomerular Filtration Rate 23.9, Glucose Level 138H, Calcium Level 9.2 Current Medications Medications (Trade) Dose Ordered Sig/Adria Route PRN Reason Start Time Stop Time Status Last Admin Dose Admin Acetaminophen (Tylenol) 650 mg Q4H PRN ORAL fever 10/11/19 08:30 11/09/19 08:29 10/28/19 08:34 Acetaminophen (Tylenol) 650 mg Q4H PRN RECTAL Temp >100.5 10/14/19 06:30 11/13/19 06:29 Albuterol/ Ipratropium (Albuterol/ Ipratropium) 3 ml Q4HRT PRN HHN sob 10/27/19 08:30 11/01/19 08:29 Allopurinol (allopurinoL) 300 mg DAILY ORAL 10/24/19 09:00 11/23/19 08:59 10/28/19 08:34 Amlodipine Besylate (Norvasc) 10 mg DAILY ORAL 10/21/19 09:00 11/20/19 08:59 10/28/19 08:34 Aspirin (Ecotrin) 81 mg DAILY ORAL 10/11/19 09:00 11/25/19 08:59 10/28/19 08:34 Atorvastatin Calcium (Lipitor) 40 mg BEDTIME ORAL 10/12/19 21:00 01/10/20 20:59 10/27/19 20:32 Clonidine HCl (Catapres Tab) 0.1 mg Q4H PRN ORAL Blood pressure over 160 systol 10/11/19 08:30 01/08/20 08:29 10/25/19 05:10 Dextrose (Dextrose 50%) 25 ml Q30M PRN IV Hypoglycemia 10/11/19 08:30 01/08/20 11:29 Dextrose (Dextrose 50%) 50 ml Q30M PRN IV Hypoglycemia 10/11/19 08:30 01/08/20 11:29 Docusate Sodium (Colace) 100 mg THREE TIMES A DAY ORAL 10/11/19 09:00 11/09/19 17:59 10/28/19 08:33 Furosemide (Lasix) 40 mg DAILY ORAL 10/27/19 09:00 11/26/19 08:59 10/28/19 08:33 Gabapentin (Neurontin) 200 mg THREE TIMES A DAY ORAL 10/16/19 13:00 11/09/19 12:59 10/28/19 08:33 Heparin Sodium/ Dextrose 500 ml @ 43.953 mls/ hr ADJUST PER PROTOCOL IV 10/26/19 19:45 11/25/19 19:44 10/28/19 07:46 Hydralazine HCl (Apresoline) 25 mg Q12HR ORAL 10/27/19 21:00 01/25/20 20:59 10/28/19 08:33 Insulin Aspart (NovoLOG) BEFORE MEALS AND HS SUBQ 10/11/19 11:30 01/08/20 11:29 10/27/19 12:34 Isosorbide Mononitrate (Imdur) 30 mg DAILY ORAL 10/13/19 09:00 11/12/19 08:59 10/28/19 08:33 Latanoprost (Xalatan) 1 drop BEDTIME BOTH EYES 10/17/19 21:00 11/16/19 20:59 10/27/19 20:32 Nitroglycerin (Ntg) 0.4 mg Q5M PRN SL Prn Chest Pain 10/11/19 08:30 11/09/19 11:29 Ondansetron HCl (Zofran) 4 mg Q6H PRN IVP Nausea & Vomiting 10/11/19 08:30 11/09/19 08:29 Pantoprazole (Protonix) 40 mg EVERY 12 HOURS ORAL 10/14/19 21:00 11/13/19 20:59 10/28/19 08:34 Polyethylene Glycol (Miralax) 17 gm DAILYPRN PRN ORAL Constipation 10/11/19 08:30 11/09/19 08:29 Tramadol HCl (Ultram) 50 mg Q6H PRN ORAL pain 7-10 10/28/19 11:30 11/04/19 11:29 Warfarin Sodium (Coumadin per pharmacy) 1 ea DAILY PRN MISC Per rx protocol 10/26/19 10:15 11/25/19 10:14 Warfarin Sodium (Coumadin) 5 mg COUMADIN ORAL 10/28/19 17:00 10/28/19 18:00 Warfarin Sodium (Warfarin Sod) 1 mg COUMADIN ORAL 10/28/19 17:00 10/28/19 18:00 Assessment/Plan Problems: (1) Sepsis (2) Peripheral edema (3) Anasarca (4) NSTEMI (non-ST elevated myocardial infarction) (5) Renal failure (ARF), acute on chronic (6) Pyelonephritis (7) Atrial fibrillation with rapid ventricular response (8) Chronic atrial fibrillation (9) Limited mobility (10) Anemia (11) Diabetes mellitus (12) Morbid obesity Assessment/Plan on oral lasix, bun/creatinine stable off abx. Has low grade temp on Heparin drip and Coumadin asymptomatic electrolytes supplement sliding scale diabetic diet renal studies dvt prophylaxis. Bandar Brownlee MD Oct 28, 2019 11:33
[2019-10-28 12:00] VITALS: BP 125/85
--- NOTE | 2019-10-28 12:14 | Nephrology Progress Note ---
Assessment/Plan Problem List: (1) Renal failure (ARF), acute on chronic (2) Diabetes mellitus (3) Morbid obesity (4) Chronic atrial fibrillation (5) History of DVT (deep vein thrombosis) (6) Anemia (7) NSTEMI (non-ST elevated myocardial infarction) (8) Sepsis (9) Pyelonephritis Assessment Renal failure, most likely acute on chronic. Sepsis, leukocytosis, fever, suspected 2019 novel coronavirus infection. Encephalopathy most likely toxic metabolic UTI/pyelonephritis Anemia Atrial fibrillation chronic, with fast ventricular rate. Diabetes mellitus Morbid obesity/limited mobility History of DVT Elevated troponin I Lactic acidosis Plan October 27: Serum creatinine up to 2.4. Otherwise stable. Continue per consultants. Hemoglobin down to 8.9 today. October 26: Serum creatinine lowered to 2.2. Clinically appears to be stable. Continue per consultants. October 25: Serum creatinine 2.5 stable. Chest x-ray reviewed. Mild CHF present. Will restart Lasix and adjust dose as needed . October 24: Serum creatinine rising. Patient has been on IV Lasix since October 22. Will hold IV Lasix, and check chest x-ray for evidence of CHF. Continue to monitor renal parameters. October 23: Status quo. Serum creatinine stable. Mag supplement IV given. Remains anemic hemoglobin stable. Full code. October 22: No chemistry panel done today. Status quo. Remains full code. Medication list reviewed. October 21: Labs reviewed. Serum creatinine stable. Patient remains full code. Continue per consultants. Urinalysis results from yesterday noted. Culture so far negative. October 20: Labs are reviewed. Creatinine 2.1. White blood cells within normal range. Blood pressure is reasonably controlled. Medication reviewed and adjusted. Coreg dose increased. UA and culture ordered. October 19: Lab reviewed. Creatinine lower. Will adjust blood pressure medication. Leukocytosis resolved. October 18: No can panel drawn today. Clinically stable. Will check labs in a.m. Continue per consultants. October 17: Serum creatinine stable lowering. Continues to improve. Full code. Continue per consultants. October 16: Serum creatinine lowering. White blood cell is lowering. Clinically improving. Continue per consultants. October 15: Serum creatinine lowered to 2.6. White blood cell count is also down to 17,000. Not much to add from renal standpoint of view. Continue per cardiology and per ID. October 14: Serum creatinine 2.8. No new changes. 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 Leukocytosis persists. Remains on meropenem. Continue per ID. October 13: Serum creatinine continues to lower. Troponin level also declining. Continue per cardiology management. Statins was restarted by cardiology. Continue to monitor renal parameters. October 12: Serum creatinine lowering. Troponin I is also declining. Continue per cardiology management. Will continue to follow-up renal parameters and CPK level. October 11: Statins stopped due to worsening LFTs. 1 dose of Plavix given. Imdur started. Serum creatinine stable. Continue per cardiology. Continue to monitor renal parameters and CPK. Monitor troponin I and CPK Aspirin, Coreg ,nitrate for elevated troponin Antibiotics Echocardiogram results noted Kidney ultrasound results pending Monitor urine output and renal parameters Keep the blood pressure and blood sugar in check Coumadin for DVT and atrial fibrillation IV Protonix Subjective ROS Limited/Unobtainable: No Constitutional: Reports: malaise, weakness Objective Objective Last 24 Hour Vital Signs Date Time Temp Pulse Resp B/P (MAP) Pulse Ox O2 Delivery O2 Flow Rate FiO2 10/28/19 09:00 Room Air 10/28/19 08:55 84 10/28/19 08:34 91 147/64 10/28/19 08:34 99.0 10/28/19 08:33 147/64 10/28/19 08:33 147/64 10/28/19 08:01 99.9 91 20 147/64 (91) 96 10/28/19 04:00 98.8 71 19 161/86 (111) 95 10/28/19 04:00 53 10/28/19 00:00 74 10/28/19 00:00 99.0 60 20 144/64 (90) 93 10/27/19 21:00 Room Air 10/27/19 20:33 143/78 10/27/19 20:15 78 18 95 Room Air 21 10/27/19 20:00 100.0 64 20 143/78 (99) 94 10/27/19 20:00 62 10/27/19 16:00 98.2 58 20 140/71 (94) 95 10/27/19 16:00 54 Intake and Output 10/27/19 10/28/19 19:00 07:00 Intake Total 600 ml 449.050 ml Output Total 1200 ml 200 ml Balance -600 ml 249.050 ml Intake Oral 600 ml IV Total 449.050 ml Output Urine Total 1200 ml 200 ml # Voids 1 Laboratory Tests 10/28/19 04:10: White Blood Count 5.3, Red Blood Count 3.27L, Hemoglobin 8.9L, Hematocrit 28.4L , Mean Corpuscular Volume 87, Mean Corpuscular Hemoglobin 27.2, Mean Corpuscular Hemoglobin Concent 31.3L, Red Cell Distribution Width 14.7, Platelet Count 364, Mean Platelet Volume 8.6, Neutrophils (%) (Auto) 54.4, Lymphocytes (%) (Auto) 30.7, Monocytes (%) (Auto) 11.2H, Eosinophils (%) (Auto) 2.0, Basophils (%) (Auto) 1.7, Prothrombin Time 13.4H, Prothromb Time International Ratio 1.2H, Activated Partial Thromboplast Time 81H, Sodium Level 137, Potassium Level 4.0, Chloride Level 102, Carbon Dioxide Level 28, Anion Gap 8, Blood Urea Nitrogen 21H, Creatinine 2.4H, Estimat Glomerular Filtration Rate 23.9, Glucose Level 138H, Calcium Level 9.2 Height (Feet): 5 Height (Inches): 3.00 Weight (Pounds): 323 General Appearance: no apparent distress Cardiovascular: tachycardia Respiratory/Chest: decreased breath sounds Abdomen: soft, other - Obese Objective No change Pantera Wallace MD Oct 28, 2019 12:14
--- NOTE | 2019-10-28 12:42 | Infectious Diseases Prog Note ---
Assessment/Plan Assessment/Plan Assessment: Severe Sepsis, SP Probable PNA- COVID neg x3- sp VEnturi mask 8L- now at [facility]- GGO seen on CT chest CHF exacerbation (R heart failure) -10/24 CXR: Cardiomegaly with slight increased prominence of the central pulmonary vasculature which may signal development of mild congestive changes. No overt alveolar edema/CHF. -10/22 SARS-COV2 PCR neg -10/20 CXR: Cardiomegaly. No acute disease. -10/13 CXR: Mild vascular congestion. Probable small left pleural effusion. -10/10 SARS-COV2 PCR neg -10/09 CXR: Mild interstitial congestion. Cannot rule out small left pleural effusion SARS-COV2 PCR neg E.coli UTI c/w high grade bacteremia- -10/20 u/a wbc 5-10, nit neg, leuk +3; ucx Neg Bcx Neg -u/a wbc tnct, nit neg, leuk +3; ucx >100k E.coli (R Levauin; otherwise S) -10/09 Bcx 4/4 E.coli (R levaquin; otherwise S); 10/10 Bcx 1/4 E.coli; 10/13, 9 BCx Neg x4 Fever; recurrent; improving- there is suspicion for probable PE which may be sprinkler driver of the intermittent fevers Leukocytosis; SP L groin pain -10/21 CT c/abd/p wo: SOME AIR TRAPPING IN BOTH LUNGS.SMALL PERIPHERAL GROUNDGLASS DENSITIES POSTERIOR RIGHT UPPER LOBE. EARLY VIRAL PNEUMONITIS MAY PRESENT SIMILARLY. HIATAL HERNIA AND POSTOPERATIVE CHANGES OF THE STOMACH. GALLSTONES. ATROPHIC PANCREAS WITH SMALL CYST AT THE PANCREATIC TAIL. LEFT RENAL STONES. BILATERAL RENAL CYSTS. NO HYDRONEPHROSIS. DIVERTICULOSIS. SUPRAUMBILICAL FATTY VENTRAL HERNIA. ANASARCA. Targeted review of the left groin region shows no evidence of a hematoma and there is no hernia demonstrated. Mild generalized soft tissue induration noted involving the anterior pelvic wall and bilateral hip regions likely reflecting generalized anasarca. There is slight asymmetric thickening at the inferior margin of the left abdominal rectus muscle compared to the contralateral right. The thickening is isodense to the rest of the muscles so there does not appear to be an acute intramuscular hematoma. -10/17 v. duplex BLE: limited study, No DVT NSTEMI ?PE Acute encephalopathy; SP LG, Cr fluctuating -renal US: Negative for hydronephrosis. Possible nonobstructive left lower pole renal calculi. Incidental finding of bilateral renal parapelvic cysts. morbid obesity HTN Dm2 hx of UTI Afib on coumadin [place] resident ([facility]) Plan: -Continue to monitor off abx -10/22 SP Ceftriaxone #7 -10/16 SP Meropenem #7 -10/13 SP IV Vancomycin #5 -10/10 SP cefepime #2 -/ SP Meropenem x1 -f/u cx -monitor CBC/CMP, temperatures -COVID19 neg x3- ok to dc isolation -f/u repeat Bcx x2 -Cards, renal f/u Thank you for consulting [facility]. Will continue to follow along with you. Discussed with RN. Subjective Allergies: Coded Allergies: CODEINE (Verified Allergy, Unknown, 10/10/19) Subjective Tm100 at RA no leukocytosis repeat Bcx neg Objective Vital Signs Last 24 Hour Vital Signs Date Time Temp Pulse Resp B/P (MAP) Pulse Ox O2 Delivery O2 Flow Rate FiO2 10/28/19 09:00 Room Air 10/28/19 08:55 84 10/28/19 08:34 91 147/64 10/28/19 08:34 99.0 10/28/19 08:33 147/64 10/28/19 08:33 147/64 10/28/19 08:01 99.9 91 20 147/64 (91) 96 10/28/19 04:00 98.8 71 19 161/86 (111) 95 10/28/19 04:00 53 10/28/19 00:00 74 10/28/19 00:00 99.0 60 20 144/64 (90) 93 10/27/19 21:00 Room Air 10/27/19 20:33 143/78 10/27/19 20:15 78 18 95 Room Air 21 10/27/19 20:00 100.0 64 20 143/78 (99) 94 10/27/19 20:00 62 10/27/19 16:00 98.2 58 20 140/71 (94) 95 10/27/19 16:00 54 Height (Feet): 5 Height (Inches): 3.00 Weight (Pounds): 323 Objective GENERAL: Patient is well-developed, well-nourished, slightly obese female, in no apparent distress. HEENT: Eyes, pupils are equal and responsive to light and accommodation. Extraocular movements are intact. NECK: Supple. No lymphadenopathy. CHEST: Lungs are clear to auscultation bilaterally without wheezes or rales. CARDIOVASCULAR: Regular rate. S1, S2 are normal without murmurs, rubs, or gallops. ABDOMEN: Soft, nontender, nondistended. Positive bowel sounds. No evidence of hepatosplenomegaly. Currently no rebound or guarding noted. EXTREMITIES: Negative for clubbing, cyanosis, or edema. Laboratory Tests Test 10/28/19 04:10 White Blood Count 5.3 K/UL (4.8-10.8) Red Blood Count 3.27 M/UL (4.20-5.40) L Hemoglobin 8.9 G/DL (12.0-16.0) L Hematocrit 28.4 % (37.0-47.0) L Mean Corpuscular Volume 87 FL (80-99) Mean Corpuscular Hemoglobin 27.2 PG (27.0-31.0) Mean Corpuscular Hemoglobin Concent 31.3 G/DL (32.0-36.0) L Red Cell Distribution Width 14.7 % (11.6-14.8) Platelet Count 364 K/UL (150-450) Mean Platelet Volume 8.6 FL (6.5-10.1) Neutrophils (%) (Auto) 54.4 % (45.0-75.0) Lymphocytes (%) (Auto) 30.7 % (20.0-45.0) Monocytes (%) (Auto) 11.2 % (1.0-10.0) H Eosinophils (%) (Auto) 2.0 % (0.0-3.0) Basophils (%) (Auto) 1.7 % (0.0-2.0) Prothrombin Time 13.4 SEC (9.30-11.50) H Prothromb Time International Ratio 1.2 (0.9-1.1) H Activated Partial Thromboplast Time 81 SEC (23-33) H Sodium Level 137 MMOL/L (136-145) Potassium Level 4.0 MMOL/L (3.5-5.1) Chloride Level 102 MMOL/L (98-107) Carbon Dioxide Level 28 MMOL/L (21-32) Anion Gap 8 mmol/L (5-15) Blood Urea Nitrogen 21 mg/dL (7-18) H Creatinine 2.4 MG/DL (0.55-1.30) H Estimat Glomerular Filtration Rate 23.9 mL/min (>60) Glucose Level 138 MG/DL (74-106) H Calcium Level 9.2 MG/DL (8.5-10.1) Current Medications Medications (Trade) Dose Ordered Sig/Adria Route PRN Reason Start Time Stop Time Status Last Admin Dose Admin Acetaminophen (Tylenol) 650 mg Q4H PRN ORAL fever 10/11/19 08:30 11/09/19 08:29 10/28/19 08:34 Acetaminophen (Tylenol) 650 mg Q4H PRN RECTAL Temp >100.5 10/14/19 06:30 11/13/19 06:29 Albuterol/ Ipratropium (Albuterol/ Ipratropium) 3 ml Q4HRT PRN HHN sob 10/27/19 08:30 11/01/19 08:29 Allopurinol (allopurinoL) 300 mg DAILY ORAL 10/24/19 09:00 11/23/19 08:59 10/28/19 08:34 Amlodipine Besylate (Norvasc) 10 mg DAILY ORAL 10/21/19 09:00 11/20/19 08:59 10/28/19 08:34 Aspirin (Ecotrin) 81 mg DAILY ORAL 10/11/19 09:00 11/25/19 08:59 10/28/19 08:34 Atorvastatin Calcium (Lipitor) 40 mg BEDTIME ORAL 10/12/19 21:00 01/10/20 20:59 10/27/19 20:32 Clonidine HCl (Catapres Tab) 0.1 mg Q4H PRN ORAL Blood pressure over 160 systol 10/11/19 08:30 01/08/20 08:29 10/25/19 05:10 Dextrose (Dextrose 50%) 25 ml Q30M PRN IV Hypoglycemia 10/11/19 08:30 01/08/20 11:29 Dextrose (Dextrose 50%) 50 ml Q30M PRN IV Hypoglycemia 10/11/19 08:30 01/08/20 11:29 Docusate Sodium (Colace) 100 mg THREE TIMES A DAY ORAL 10/11/19 09:00 11/09/19 17:59 10/28/19 08:33 Furosemide (Lasix) 40 mg DAILY ORAL 10/27/19 09:00 11/26/19 08:59 10/28/19 08:33 Gabapentin (Neurontin) 200 mg THREE TIMES A DAY ORAL 10/16/19 13:00 11/09/19 12:59 10/28/19 12:05 Heparin Sodium/ Dextrose 500 ml @ 43.953 mls/ hr ADJUST PER PROTOCOL IV 10/26/19 19:45 11/25/19 19:44 10/28/19 07:46 Hydralazine HCl (Apresoline) 25 mg Q12HR ORAL 10/27/19 21:00 01/25/20 20:59 10/28/19 08:33 Insulin Aspart (NovoLOG) BEFORE MEALS AND HS SUBQ 10/11/19 11:30 01/08/20 11:29 10/28/19 12:10 Isosorbide Mononitrate (Imdur) 30 mg DAILY ORAL 10/13/19 09:00 11/12/19 08:59 10/28/19 08:33 Latanoprost (Xalatan) 1 drop BEDTIME BOTH EYES 10/17/19 21:00 11/16/19 20:59 10/27/19 20:32 Nitroglycerin (Ntg) 0.4 mg Q5M PRN SL Prn Chest Pain 10/11/19 08:30 11/09/19 11:29 Ondansetron HCl (Zofran) 4 mg Q6H PRN IVP Nausea & Vomiting 10/11/19 08:30 11/09/19 08:29 Pantoprazole (Protonix) 40 mg EVERY 12 HOURS ORAL 10/14/19 21:00 11/13/19 20:59 10/28/19 08:34 Polyethylene Glycol (Miralax) 17 gm DAILYPRN PRN ORAL Constipation 10/11/19 08:30 11/09/19 08:29 Tramadol HCl (Ultram) 50 mg Q6H PRN ORAL pain 7-10 10/28/19 11:30 11/04/19 11:29 10/28/19 12:06 Warfarin Sodium (Coumadin per pharmacy) 1 ea DAILY PRN MISC Per rx protocol 10/26/19 10:15 11/25/19 10:14 Warfarin Sodium (Coumadin) 5 mg COUMADIN ORAL 10/28/19 17:00 10/28/19 18:00 Warfarin Sodium (Warfarin Sod) 1 mg COUMADIN ORAL 10/28/19 17:00 10/28/19 18:00 Hannah Mays M.D. Oct 28, 2019 12:42
[2019-10-28 16:00] VITALS: BP 132/64
[2019-10-28] MEDS ORDERED: Warfarin Sodium 5mg ORAL SCH (17:00)
[2019-10-28] MEDS ORDERED: Warfarin Sodium 1mg ORAL SCH (17:00)
--- NOTE | 2019-10-28 18:12 | Internal Med Progress Note ---
Subjective Date of Service: Oct 28, 2019 Physician Name Blankenship,Johny Attending Physician Aleksandr Vega MD Current Medications Medications (Trade) Dose Ordered Sig/Adria Route PRN Reason Start Time Stop Time Status Last Admin Dose Admin Acetaminophen (Tylenol) 650 mg Q4H PRN ORAL fever 10/11/19 08:30 11/09/19 08:29 10/28/19 08:34 Acetaminophen (Tylenol) 650 mg Q4H PRN RECTAL Temp >100.5 10/14/19 06:30 11/13/19 06:29 Albuterol/ Ipratropium (Albuterol/ Ipratropium) 3 ml Q4HRT PRN HHN sob 10/27/19 08:30 11/01/19 08:29 Allopurinol (allopurinoL) 300 mg DAILY ORAL 10/24/19 09:00 11/23/19 08:59 10/28/19 08:34 Amlodipine Besylate (Norvasc) 10 mg DAILY ORAL 10/21/19 09:00 11/20/19 08:59 10/28/19 08:34 Aspirin (Ecotrin) 81 mg DAILY ORAL 10/11/19 09:00 11/25/19 08:59 10/28/19 08:34 Atorvastatin Calcium (Lipitor) 40 mg BEDTIME ORAL 10/12/19 21:00 01/10/20 20:59 10/27/19 20:32 Clonidine HCl (Catapres Tab) 0.1 mg Q4H PRN ORAL Blood pressure over 160 systol 10/11/19 08:30 01/08/20 08:29 10/25/19 05:10 Dextrose (Dextrose 50%) 25 ml Q30M PRN IV Hypoglycemia 10/11/19 08:30 01/08/20 11:29 Dextrose (Dextrose 50%) 50 ml Q30M PRN IV Hypoglycemia 10/11/19 08:30 01/08/20 11:29 Docusate Sodium (Colace) 100 mg THREE TIMES A DAY ORAL 10/11/19 09:00 11/09/19 17:59 10/28/19 08:33 Furosemide (Lasix) 40 mg DAILY ORAL 10/27/19 09:00 11/26/19 08:59 10/28/19 08:33 Gabapentin (Neurontin) 200 mg THREE TIMES A DAY ORAL 10/16/19 13:00 11/09/19 12:59 10/28/19 17:03 Heparin Sodium/ Dextrose 500 ml @ 43.953 mls/ hr ADJUST PER PROTOCOL IV 10/26/19 19:45 11/25/19 19:44 10/28/19 07:46 Hydralazine HCl (Apresoline) 25 mg Q12HR ORAL 10/27/19 21:00 01/25/20 20:59 10/28/19 08:33 Insulin Aspart (NovoLOG) BEFORE MEALS AND HS SUBQ 10/11/19 11:30 01/08/20 11:29 10/28/19 12:10 Isosorbide Mononitrate (Imdur) 30 mg DAILY ORAL 10/13/19 09:00 11/12/19 08:59 10/28/19 08:33 Latanoprost (Xalatan) 1 drop BEDTIME BOTH EYES 10/17/19 21:00 11/16/19 20:59 10/27/19 20:32 Nitroglycerin (Ntg) 0.4 mg Q5M PRN SL Prn Chest Pain 10/11/19 08:30 11/09/19 11:29 Ondansetron HCl (Zofran) 4 mg Q6H PRN IVP Nausea & Vomiting 10/11/19 08:30 11/09/19 08:29 Pantoprazole (Protonix) 40 mg EVERY 12 HOURS ORAL 10/14/19 21:00 11/13/19 20:59 10/28/19 08:34 Polyethylene Glycol (Miralax) 17 gm DAILYPRN PRN ORAL Constipation 10/11/19 08:30 11/09/19 08:29 Tramadol HCl (Ultram) 50 mg Q6H PRN ORAL pain 7-10/28/19 11:30 11/04/19 11:29 10/28/19 12:06 Warfarin Sodium (Coumadin per pharmacy) 1 ea DAILY PRN MISC Per rx protocol 10/26/19 10:15 11/25/19 10:14 Allergies: Coded Allergies: CODEINE (Verified Allergy, Unknown, 10/10/19) ROS Limited/Unobtainable: No Constitutional: Reports: no symptoms HEENT: Reports: no symptoms Cardiovascular: Reports: no symptoms Respiratory: Reports: no symptoms Gastrointestinal/Abdominal: Reports: no symptoms Genitourinary: Reports: no symptoms Neurologic/Psychiatric: Reports: no symptoms Subjective 74 YO F admitted with altered mental status and fever. Now UTI and sepsis. Cover for Int Med-Dr Vega. Refused V/Q scan Objective Last Vital Signs Date Time Temp Pulse Resp B/P (MAP) Pulse Ox O2 Delivery O2 Flow Rate FiO2 10/28/19 16:00 98.2 77 20 132/64 (86) 97 10/28/19 09:00 Room Air 10/27/19 20:15 21 Laboratory Tests Test 10/28/19 04:10 White Blood Count 5.3 K/UL (4.8-10.8) Red Blood Count 3.27 M/UL (4.20-5.40) L Hemoglobin 8.9 G/DL (12.0-16.0) L Hematocrit 28.4 % (37.0-47.0) L Mean Corpuscular Volume 87 FL (80-99) Mean Corpuscular Hemoglobin 27.2 PG (27.0-31.0) Mean Corpuscular Hemoglobin Concent 31.3 G/DL (32.0-36.0) L Red Cell Distribution Width 14.7 % (11.6-14.8) Platelet Count 364 K/UL (150-450) Mean Platelet Volume 8.6 FL (6.5-10.1) Neutrophils (%) (Auto) 54.4 % (45.0-75.0) Lymphocytes (%) (Auto) 30.7 % (20.0-45.0) Monocytes (%) (Auto) 11.2 % (1.0-10.0) H Eosinophils (%) (Auto) 2.0 % (0.0-3.0) Basophils (%) (Auto) 1.7 % (0.0-2.0) Prothrombin Time 13.4 SEC (9.30-11.50) H Prothromb Time International Ratio 1.2 (0.9-1.1) H Activated Partial Thromboplast Time 81 SEC (23-33) H Sodium Level 137 MMOL/L (136-145) Potassium Level 4.0 MMOL/L (3.5-5.1) Chloride Level 102 MMOL/L (98-107) Carbon Dioxide Level 28 MMOL/L (21-32) Anion Gap 8 mmol/L (5-15) Blood Urea Nitrogen 21 mg/dL (7-18) H Creatinine 2.4 MG/DL (0.55-1.30) H Estimat Glomerular Filtration Rate 23.9 mL/min (>60) Glucose Level 138 MG/DL (74-106) H Calcium Level 9.2 MG/DL (8.5-10.1) Intake and Output 10/27/19 10/28/19 19:00 07:00 Intake Total 600 ml 493.003 ml Output Total 1200 ml 200 ml Balance -600 ml 293.003 ml Intake Oral 600 ml IV Total 493.003 ml Output Urine Total 1200 ml 200 ml # Voids 1 Objective PHYSICAL EXAMINATION: GENERAL: Patient is well-developed, well-nourished, slightly obese female, in no apparent distress. HEENT: Eyes, pupils are equal and responsive to light and accommodation. Extraocular movements are intact. NECK: Supple. No lymphadenopathy. CHEST: Lungs are clear to auscultation bilaterally without wheezes or rales. CARDIOVASCULAR: Regular rate. S1, S2 are normal without murmurs, rubs, or gallops. ABDOMEN: Soft, nontender, nondistended. Positive bowel sounds. No evidence of hepatosplenomegaly. Currently no rebound or guarding noted. EXTREMITIES: Negative for clubbing, cyanosis, or edema. RECTAL/GENITAL: Not performed. NEUROLOGIC: Cranial nerves II to XII grossly intact without focal deficits Assessment/Plan Assessment/Plan ASSESSMENT: This is a 74-year-old female. 1. Sepsis=E. Coli 2. UTI=E. Coli 3. Altered mental status. 4. Leukocytosis. 5. Elevated troponin. 6. Atrial fibrillation. 7. Diabetes type 2. 8. Hypertension. 9. Hyperthyroidism. 10. Coronary artery disease. 11. Renal failure. 12. Hypercholesterolemia. 13. Chronic lymphedema of the bilateral lower extremities. 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 Urinary Tract infection-E. Coli ABX=ceftriaxone, S/P meropenem. Infectious Disease=Dr. Mays. We will follow recommendations of Infectious Disease. 2. Sepsis=E. Coli Await culture and sensitivity result. Continue meropenem per ID. 3. Altered mental status. Resolved 4. Leukocytosis. Resolved 5. Elevated troponin. A Cardiology consultation has been obtained with Dr. Arun Barker. 6. Atrial fibrillation. Continue Coumadin as above. A Cardiology consultation has been obtained with Dr. Arun Barker. 7. Diabetes type 2. NovoLog sliding scale has been instituted. 8. Hypertension. Patient is currently hypotensive. Hold amlodipine as above. 9. Hyperthyroidism. Continue methimazole as above. 10. Coronary artery disease. Patient has elevated troponin. A Cardiology consultation has been obtained with Dr. Arun Barker. 11. Renal failure. A Nephrology consultation has been obtained with Dr. Pantera Wallace. 12. Hypercholesterolemia. Continue simvastatin as above. 13. Chronic lymphedema of bilateral lower extremities. 14. Will need CT abdomen/pelvis to R/O abscess-see ID note. 15. Await cardiac cath-see cardiology note 16. Refused V/Q scan to R/O pulmonary embolism; Continue heparin drip unitl coumadin therapeutic 17. Non invasive W/U vs cardiac cath 18. Discharge planning: [facility] Johny Blankenship MD Oct 28, 2019 18:12
--- NOTE | 2019-10-28 18:42 | Cardiology Progress Note ---
Assessment/Plan Assessment/Plan 1. Permanent atrial fibrillation, on anticoagulation. 2. Toxic-metabolic encephalopathy. 3. Urinary tract infection, question pyelonephritis. 4. Diabetes mellitus. 5. Hypertension history. 6. Morbid obesity. 7. Myocardial infarction. 8. Acute on chronic renal insufficiency. 9. Coagulopathy secondary to Coumadin. 10. Bacteremia gnr 11. Iron def 12 RV hypokinesis and enlargment 13. pain in the left groin 14. 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 for now remain on heparin for afib and possible PE bp seeem ok on low dose norvasc lwo grade fever echo repeated 10/21 lv function still good rv is mildly enlarged and hypo refused v/q by pt for now remain on heparin for afib adn possible PE fever alvarado per id had ct i discussed with radiologist no evidence of hematoma noted on the ct on 10/21 i discussed with pt the result of the trop and my concern about the possibility of pe (for which she declined v/q) the possibility of underlying cad which will need to have coronary angiogram performed , she declined angiogram told me she had one done 2014 at [facility] was told normal , she understand that it was 5 years ago , but she still declines cardiac cath there were no sudden drops of hemoglobin hematoglobin relative stable for the past few days now off iuritic due to increase cr xray of hip noted tele reviewed afib vr seem ok now off coreg since 10/22 Subjective Subjective pt now back in covid isolation Objective Last 24 Hour Vital Signs Date Time Temp Pulse Resp B/P (MAP) Pulse Ox O2 Delivery O2 Flow Rate FiO2 10/28/19 16:00 98.2 77 20 132/64 (86) 97 10/28/19 15:13 63 10/28/19 12:00 99.5 93 20 125/85 (98) 94 10/28/19 11:24 60 10/28/19 09:00 Room Air 10/28/19 08:55 84 10/28/19 08:34 91 147/64 10/28/19 08:34 99.0 10/28/19 08:33 147/64 10/28/19 08:33 147/64 10/28/19 08:01 99.9 91 20 147/64 (91) 96 6/22/20 04:00 98.8 71 19 161/86 (111) 95 10/28/19 04:00 53 10/28/19 00:00 74 10/28/19 00:00 99.0 60 20 144/64 (90) 93 10/27/19 21:00 Room Air 10/27/19 20:33 143/78 10/27/19 20:15 78 18 95 Room Air 21 10/27/19 20:00 100.0 64 20 143/78 (99) 94 10/27/19 20:00 62 Intake and Output 10/27/19 10/28/19 19:00 07:00 Intake Total 600 ml 493.003 ml Output Total 1200 ml 200 ml Balance -600 ml 293.003 ml Intake Oral 600 ml IV Total 493.003 ml Output Urine Total 1200 ml 200 ml # Voids 1 Laboratory Tests Test 10/28/19 04:10 White Blood Count 5.3 K/UL (4.8-10.8) Red Blood Count 3.27 M/UL (4.20-5.40) L Hemoglobin 8.9 G/DL (12.0-16.0) L Hematocrit 28.4 % (37.0-47.0) L Mean Corpuscular Volume 87 FL (80-99) Mean Corpuscular Hemoglobin 27.2 PG (27.0-31.0) Mean Corpuscular Hemoglobin Concent 31.3 G/DL (32.0-36.0) L Red Cell Distribution Width 14.7 % (11.6-14.8) Platelet Count 364 K/UL (150-450) Mean Platelet Volume 8.6 FL (6.5-10.1) Neutrophils (%) (Auto) 54.4 % (45.0-75.0) Lymphocytes (%) (Auto) 30.7 % (20.0-45.0) Monocytes (%) (Auto) 11.2 % (1.0-10.0) H Eosinophils (%) (Auto) 2.0 % (0.0-3.0) Basophils (%) (Auto) 1.7 % (0.0-2.0) Prothrombin Time 13.4 SEC (9.30-11.50) H Prothromb Time International Ratio 1.2 (0.9-1.1) H Activated Partial Thromboplast Time 81 SEC (23-33) H Sodium Level 137 MMOL/L (136-145) Potassium Level 4.0 MMOL/L (3.5-5.1) Chloride Level 102 MMOL/L (98-107) Carbon Dioxide Level 28 MMOL/L (21-32) Anion Gap 8 mmol/L (5-15) Blood Urea Nitrogen 21 mg/dL (7-18) H Creatinine 2.4 MG/DL (0.55-1.30) H Estimat Glomerular Filtration Rate 23.9 mL/min (>60) Glucose Level 138 MG/DL (74-106) H Calcium Level 9.2 MG/DL (8.5-10.1) Arun Barker MD Oct 28, 2019 18:42
--- NOTE | 2019-10-28 18:56 | Cardiology Progress Note ---
Assessment/Plan Assessment/Plan 1. Permanent atrial fibrillation, on anticoagulation. 2. Toxic-metabolic encephalopathy. 3. Urinary tract infection, question pyelonephritis. 4. Diabetes mellitus. 5. Hypertension history. 6. Morbid obesity. 7. Myocardial infarction. 8. Acute on chronic renal insufficiency. 9. Coagulopathy secondary to Coumadin. 10. Bacteremia gnr 11. Iron def 12 RV hypokinesis and enlargment 13. pain in the left groin 14. tania trop may be related to poulm embolism or cad venous duplex neg but tech difficult study for now remain on heparin for afib and possible PE bp seeem ok on norvasc lwo grade fever echo repeated 10/21 lv function still good rv is mildly enlarged and hypo had ct i discussed with radiologist no evidence of hematoma noted on the ct on 10/21 i discussed with pt the result of the trop and my concern about the possibility of pe (for which she declined v/q) the possibility of underlying cad which will need to have coronary angiogram performed , she declined angiogram told me she had one done 2014 at [facility] was told normal , she understand that it was 5 years ago , but she still declines cardiac cath heparin / couamdin cross 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 tele reviewed afib vr seem ok now off coreg since 10/22 Subjective Cardiovascular: Denies: chest pain, lightheadedness, palpitations Respiratory: Denies: shortness of breath Gastrointestinal/Abdominal: Denies: abdominal pain Genitourinary: Denies: burning Objective Last 24 Hour Vital Signs Date Time Temp Pulse Resp B/P (MAP) Pulse Ox O2 Delivery O2 Flow Rate FiO2 10/28/19 16:00 98.2 77 20 132/64 (86) 97 10/28/19 15:13 63 10/28/19 12:00 99.5 93 20 125/85 (98) 94 10/28/19 11:24 60 10/28/19 09:00 Room Air 10/28/19 08:55 84 10/28/19 08:34 91 147/64 10/28/19 08:34 99.0 10/28/19 08:33 147/64 10/28/19 08:33 147/64 10/28/19 08:01 99.9 91 20 147/64 (91) 96 10/28/19 04:00 98.8 71 19 161/86 (111) 95 10/28/19 04:00 53 10/28/19 00:00 74 10/28/19 00:00 99.0 60 20 144/64 (90) 93 10/27/19 21:00 Room Air 10/27/19 20:33 143/78 10/27/19 20:15 78 18 95 Room Air 21 10/27/19 20:00 100.0 64 20 143/78 (99) 94 10/27/19 20:00 62 General Appearance: no apparent distress, alert, obese Cardiovascular: irregularly irregular Respiratory/Chest: lungs clear Abdomen: normal bowel sounds, non tender, soft Extremities: moderate edema - obese Intake and Output 10/27/19 10/28/19 19:00 07:00 Intake Total 600 ml 493.003 ml Output Total 1200 ml 200 ml Balance -600 ml 293.003 ml Intake Oral 600 ml IV Total 493.003 ml Output Urine Total 1200 ml 200 ml # Voids 1 Laboratory Tests Test 10/28/19 04:10 White Blood Count 5.3 K/UL (4.8-10.8) Red Blood Count 3.27 M/UL (4.20-5.40) L Hemoglobin 8.9 G/DL (12.0-16.0) L Hematocrit 28.4 % (37.0-47.0) L Mean Corpuscular Volume 87 FL (80-99) Mean Corpuscular Hemoglobin 27.2 PG (27.0-31.0) Mean Corpuscular Hemoglobin Concent 31.3 G/DL (32.0-36.0) L Red Cell Distribution Width 14.7 % (11.6-14.8) Platelet Count 364 K/UL (150-450) Mean Platelet Volume 8.6 FL (6.5-10.1) Neutrophils (%) (Auto) 54.4 % (45.0-75.0) Lymphocytes (%) (Auto) 30.7 % (20.0-45.0) Monocytes (%) (Auto) 11.2 % (1.0-10.0) H Eosinophils (%) (Auto) 2.0 % (0.0-3.0) Basophils (%) (Auto) 1.7 % (0.0-2.0) Prothrombin Time 13.4 SEC (9.30-11.50) H Prothromb Time International Ratio 1.2 (0.9-1.1) H Activated Partial Thromboplast Time 81 SEC (23-33) H Sodium Level 137 MMOL/L (136-145) Potassium Level 4.0 MMOL/L (3.5-5.1) Chloride Level 102 MMOL/L (98-107) Carbon Dioxide Level 28 MMOL/L (21-32) Anion Gap 8 mmol/L (5-15) Blood Urea Nitrogen 21 mg/dL (7-18) H Creatinine 2.4 MG/DL (0.55-1.30) H Estimat Glomerular Filtration Rate 23.9 mL/min (>60) Glucose Level 138 MG/DL (74-106) H Calcium Level 9.2 MG/DL (8.5-10.1) Arun Barker MD Oct 28, 2019 18:56
--- NOTE | 2019-10-28 19:25 | NUR ---
HAND-OFF: Report given to RUTHANN Mcgrath.pt is awake and stable. Endorsed plan of care.
[2019-10-28 20:00] VITALS: BP 112/79
[2019-10-28] MEDS: Atorvastatin 20mg tab ORAL SCH (20:59)
[2019-10-28] MEDS: Latanoprost 0.005% Opth 2.5ml Soln BOTH EYES SCH (21:02)
[2019-10-29] VITALS: BP 109/70
[2019-10-29 04:00] VITALS: BP 104/77
[2019-10-29 04:42] LABS: INR 1.2 (0.9-1.1)
[2019-10-29 04:44] LABS: ALANINE AMINOTRANSFERASE 7 U/L (12-78); ALBUMIN 2.3 G/DL (3.4-5.0); ALBUMIN/GLOBULIN RATIO 0.4 (1.0-2.7); ALKALINE PHOSPHATASE 105 U/L (46-116); ASPARTATE AMINO TRANSFERASE 14 U/L (15-37); BILIRUBIN,TOTAL 0.2 MG/DL (0.2-1.0); BLOOD UREA NITROGEN 22 mg/dL (7-18); CALCIUM 9.2 MG/DL (8.5-10.1); CARBON DIOXIDE 29 MMOL/L (21-32); CREATININE 2.3 MG/DL (0.55-1.30)
[2019-10-29 04:53] LABS: BASOPHILS % (AUTO) 2.8 % (0.0-2.0); HEMATOCRIT 30.8 % (37.0-47.0); HEMOGLOBIN 9.3 G/DL (12.0-16.0); LYMPHOCYTES % (AUTO) 18.2 % (20.0-45.0); MEAN CORPUSCULAR VOLUME 88 FL (80-99); MONOCYTES % (AUTO) 16.3 % (1.0-10.0); NEUTROPHILS % (AUTO) 60.7 % (45.0-75.0); PLATELET COUNT 382 K/UL (150-450); RED CELL DISTRIBUTION WIDTH 15.1 % (11.6-14.8); WHITE BLOOD COUNT 5.5 K/UL (4.8-10.8)
[2019-10-29 05:17] LABS: CHLORIDE 101 MMOL/L (98-107); POTASSIUM 3.9 MMOL/L (3.5-5.1); SODIUM 138 MMOL/L (136-145)
--- NOTE | 2019-10-29 05:55 | NUR ---
NURSE NOTES: Spoke with [facility] pharmacist - PTT in therapeutic range, please keep same rate. Order Timed PTT for 10/30/2019 0400.
[2019-10-29] MEDS: NovoLOG Insulin Flexpen SUBQ SCH ×4 (06:30→21:00)
--- NOTE | 2019-10-29 07:38 | NUR ---
HAND-OFF: Report given to RUTHANN Shahid. Patient shows no signs of distress or pain. Endorsed plan of care.
[2019-10-29 08:00] VITALS: BP 125/68
--- NOTE | 2019-10-29 08:00 | NUR ---
NURSE NOTES: Received report from RUTHANN Mcgrath. Pt awake, a/o x4, able to make needs known. Pt denies of any pain, no s/sx of acute distress, breathing even and unlabored in RA. IV site patent and asymptomatic, running heparin drip at 15 units/kg/hr. Bed on lowest position, call light within reach. Will continue plan of care.
[2019-10-29] MEDS: Heparin 25,000u/D5W 500ml 500 ML IV SCH ×2 (08:14→19:46)
[2019-10-29] MEDS: Docusate 100mg cap ORAL SCH ×3 (09:00→17:15)
[2019-10-29] MEDS: Imdur 30mg tab ORAL SCH (09:58)
[2019-10-29] MEDS: Furosemide 40mg tab ORAL SCH (09:58)
[2019-10-29] MEDS: HydrALAZINE 25mg tab ORAL SCH ×2 (09:59→20:59)
[2019-10-29] MEDS: Aspirin EC 81mg tab ORAL SCH (09:59)
--- NOTE | 2019-10-29 10:04 | NUR ---
RD ASSESSMENT & RECOMMENDATIONS SEE CARE ACTIVITY FOR COMPLETE ASSESSMENT DAILY ESTIMATED NEEDS: Needs based on Mobid obesity, DM, Cardiac/ 74kg abw 20-25 kcals/kg 3287-8752 total kcals 1.25-1.5 g protein/kg 93-111 g total protein 20-25 mL/kg 3819-8213 total fluid mLs NUTRITION DIAGNOSIS: * Morbid obesity R/T life style factors and excessive energy intake MOBILE DISC JOCKEY as evidenced by BMI >45. * Altered nutrition related lab values R/T diabetes, cardiac hx, ARF as evidenced by elev BGs w/ POC glu (200's -> 192 171 193 130, elev BNP (86997->7972), elev creat (2.3), elev phos (5.0) CURRENT DIET:[facility]HO MED PO DIET RECOMMENDATIONS: Low Phos/ cardiac/ CCHO Low- texture as tolerated ADDITIONAL RECOMMENDATIONS: * Per SNF record: HT=65" BE=[id number] (05/27/19) -> obtain calibrated bedscale wt * Monitor lytes- phos consistently elevated, rec low phos diet mag low (repletion ordered) * Wound care: MVI x 1, Vit C 250mg QD, Ishmael BID . .
--- NOTE | 2019-10-29 10:13 | Nephrology Progress Note ---
Assessment/Plan Problem List: (1) Renal failure (ARF), acute on chronic (2) Diabetes mellitus (3) Morbid obesity (4) Chronic atrial fibrillation (5) History of DVT (deep vein thrombosis) (6) Anemia (7) NSTEMI (non-ST elevated myocardial infarction) (8) Sepsis (9) Pyelonephritis Assessment Renal failure, most likely acute on chronic. Sepsis, leukocytosis, fever, suspected 2019 novel coronavirus infection. Encephalopathy most likely toxic metabolic UTI/pyelonephritis Anemia Atrial fibrillation chronic, with fast ventricular rate. Diabetes mellitus Morbid obesity/limited mobility History of DVT Elevated troponin I Lactic acidosis Plan October 28: Serum creatinine down to 2.3. Magnesium low. IV magnesium ordered. Continue per consultants. October 27: Serum creatinine up to 2.4. Otherwise stable. Continue per consultants. Hemoglobin down to 8.9 today. October 26: Serum creatinine lowered to 2.2. Clinically appears to be stable. Continue per consultants. October 25: Serum creatinine 2.5 stable. Chest x-ray reviewed. Mild CHF present. Will restart Lasix and adjust dose as needed . October 24: Serum creatinine rising. Patient has been on IV Lasix since October 22. Will hold IV Lasix, and check chest x-ray for evidence of CHF. Continue to monitor renal parameters. October 23: Status quo. Serum creatinine stable. Mag supplement IV given. Remains anemic hemoglobin stable. Full code. October 22: No chemistry panel done today. Status quo. Remains full code. Medication list reviewed. October 21: Labs reviewed. Serum creatinine stable. Patient remains full code. Continue per consultants. Urinalysis results from yesterday noted. Culture so far negative. October 20: Labs are reviewed. Creatinine 2.1. White blood cells within normal range. Blood pressure is reasonably controlled. Medication reviewed and adjusted. Coreg dose increased. UA and culture ordered. October 19: Lab reviewed. Creatinine lower. Will adjust blood pressure medication. Leukocytosis resolved. October 18: No can panel drawn today. Clinically stable. Will check labs in a.m. Continue per consultants. October 17: Serum creatinine stable lowering. Continues to improve. Full code. Continue per consultants. October 16: Serum creatinine lowering. White blood cell is lowering. Clinically improving. Continue per consultants. October 15: Serum creatinine lowered to 2.6. White blood cell count is also down to 17,000. Not much to add from renal standpoint of view. Continue per cardiology and per ID. October 14: Serum creatinine 2.8. No new changes. Continue per vice president regulatory. Leukocytosis persists. Remains on meropenem. Continue per ID. October 13: Serum creatinine continues to lower. Troponin level also declining. Continue per cardiology management. Statins was restarted by cardiology. Continue to monitor renal parameters. October 12: Serum creatinine lowering. Troponin I is also declining. Continue per cardiology management. Will continue to follow-up renal parameters and CPK level. October 11: Statins stopped due to worsening LFTs. 1 dose of Plavix given. Imdur started. Serum creatinine stable. Continue per cardiology. Continue to monitor renal parameters and CPK. Monitor troponin I and CPK Aspirin, Coreg ,nitrate for elevated troponin Antibiotics Echocardiogram results noted Kidney ultrasound results pending Monitor urine output and renal parameters Keep the blood pressure and blood sugar in check Coumadin for DVT and atrial fibrillation IV Protonix Subjective ROS Limited/Unobtainable: No Constitutional: Reports: malaise Objective Objective Last 24 Hour Vital Signs Date Time Temp Pulse Resp B/P (MAP) Pulse Ox O2 Delivery O2 Flow Rate FiO2 10/29/19 09:59 125/68 10/29/19 09:58 73 125/68 10/29/19 09:58 125/68 10/29/19 08:00 98.2 73 18 125/68 (87) 95 10/29/19 04:00 60 10/29/19 04:00 97.9 82 19 104/77 (86) 93 10/29/19 00:00 62 10/29/19 00:00 98.9 74 19 109/70 (83) 95 10/28/19 21:00 Room Air 10/28/19 20:59 112/79 10/28/19 20:00 65 10/28/19 20:00 99.9 69 20 112/79 (90) 94 10/28/19 16:00 98.2 77 20 132/64 (86) 97 10/28/19 15:13 63 10/28/19 12:00 99.5 93 20 125/85 (98) 94 10/28/19 11:24 60 Intake and Output 10/28/19 10/29/19 19:00 07:00 Intake Total 887.436 ml 350 ml Output Total 2400 ml 1600 ml Balance -1512.564 ml -1250 ml Intake Oral 360 ml 350 ml IV Total 527.436 ml Output Urine Total 2400 ml 1600 ml # Bowel Movements 1 Laboratory Tests 10/29/19 04:10: White Blood Count 5.5, Red Blood Count 3.50L, Hemoglobin 9.3L, Hematocrit 30.8L , Mean Corpuscular Volume 88, Mean Corpuscular Hemoglobin 26.6L, Mean Corpuscular Hemoglobin Concent 30.1L, Red Cell Distribution Width 15.1H, Platelet Count 382, Mean Platelet Volume 8.2, Neutrophils (%) (Auto) 60.7, Lymphocytes (%) (Auto) 18.2L, Monocytes (%) (Auto) 16.3H, Eosinophils (%) (Auto ) 2.0, Basophils (%) (Auto) 2.8H, Prothrombin Time 13.4H, Prothromb Time International Ratio 1.2H, Activated Partial Thromboplast Time 80H, Sodium Level 138, Potassium Level 3.9, Chloride Level 101, Carbon Dioxide Level 29, Blood Urea Nitrogen 22H, Creatinine 2.3H, Estimat Glomerular Filtration Rate 25.1, Glucose Level 122H, Calcium Level 9.2, Phosphorus Level 5.0H, Magnesium Level 1.4L, Total Bilirubin 0.2, Aspartate Amino Transf (AST/SGOT) 14L, Alanine Aminotransferase (ALT/SGPT) 7L, Alkaline Phosphatase 105, Total Protein 7.7, Albumin 2.3L, Globulin 5.4, Albumin/Globulin Ratio 0.4L Height (Feet): 5 Height (Inches): 3.00 Weight (Pounds): 323 General Appearance: no apparent distress Cardiovascular: normal rate Respiratory/Chest: decreased breath sounds Abdomen: distended Objective No change Pantera Wallace MD Oct 29, 2019 10:13
--- NOTE | 2019-10-29 11:06 | Infectious Diseases Prog Note ---
Assessment/Plan Assessment/Plan Assessment: Severe Sepsis, SP Probable PNA- COVID neg x3- sp VEnturi mask 8L- now at [facility]- GGO seen on CT chest CHF exacerbation (R heart failure) -10/24 CXR: Cardiomegaly with slight increased prominence of the central pulmonary vasculature which may signal development of mild congestive changes. No overt alveolar edema/CHF. -10/22 SARS-COV2 PCR neg -10/20 CXR: Cardiomegaly. No acute disease. -10/13 CXR: Mild vascular congestion. Probable small left pleural effusion. -10/10 SARS-COV2 PCR neg -10/09 CXR: Mild interstitial congestion. Cannot rule out small left pleural effusion SARS-COV2 PCR neg E.coli UTI c/w high grade bacteremia- -10/20 u/a wbc 5-10, nit neg, leuk +3; ucx Neg Bcx Neg -u/a wbc tnct, nit neg, leuk +3; ucx >100k E.coli (R Levauin; otherwise S) -10/09 Bcx 4/4 E.coli (R levaquin; otherwise S); 10/10 Bcx 1/4 E.coli; 10/13, 9 BCx Neg x4 Fever; recurrent;SP- there is suspicion for probable PE which may be straddle bug driver of the intermittent fevers Leukocytosis; SP L groin pain -10/21 CT c/abd/p wo: SOME AIR TRAPPING IN BOTH LUNGS.SMALL PERIPHERAL GROUNDGLASS DENSITIES POSTERIOR RIGHT UPPER LOBE. EARLY VIRAL PNEUMONITIS MAY PRESENT SIMILARLY. HIATAL HERNIA AND POSTOPERATIVE CHANGES OF THE STOMACH. GALLSTONES. ATROPHIC PANCREAS WITH SMALL CYST AT THE PANCREATIC TAIL. LEFT RENAL STONES. BILATERAL RENAL CYSTS. NO HYDRONEPHROSIS. DIVERTICULOSIS. SUPRAUMBILICAL FATTY VENTRAL HERNIA. ANASARCA. Targeted review of the left groin region shows no evidence of a hematoma and there is no hernia demonstrated. Mild generalized soft tissue induration noted involving the anterior pelvic wall and bilateral hip regions likely reflecting generalized anasarca. There is slight asymmetric thickening at the inferior margin of the left abdominal rectus muscle compared to the contralateral right. The thickening is isodense to the rest of the muscles so there does not appear to be an acute intramuscular hematoma. -10/17 v. duplex BLE: limited study, No DVT NSTEMI ?PE Acute encephalopathy; SP LG, Cr fluctuating -renal US: Negative for hydronephrosis. Possible nonobstructive left lower pole renal calculi. Incidental finding of bilateral renal parapelvic cysts. morbid obesity HTN Dm2 hx of UTI Afib on coumadin [facility]) Plan: -Continue to monitor off abx -10/22 SP Ceftriaxone #7 -10/16 SP Meropenem #7 -10/13 SP IV Vancomycin #5 -10/10 SP cefepime #2 -/ SP Meropenem x1 -f/u cx -monitor CBC/CMP, temperatures -COVID19 neg x3- ok to dc isolation -f/u repeat Bcx x2 -Cards, renal f/u Thank you for consulting [facility]. Will continue to follow along with you. Discussed with RN. Subjective Allergies: Coded Allergies: CODEINE (Verified Allergy, Unknown, 10/10/19) Subjective afebrile >48hrs at RA Objective Vital Signs Last 24 Hour Vital Signs Date Time Temp Pulse Resp B/P (MAP) Pulse Ox O2 Delivery O2 Flow Rate FiO2 10/29/19 09:59 125/68 10/29/19 09:58 73 125/68 10/29/19 09:58 125/68 10/29/19 08:00 98.2 73 18 125/68 (87) 95 10/29/19 04:00 60 10/29/19 04:00 97.9 82 19 104/77 (86) 93 10/29/19 00:00 62 10/29/19 00:00 98.9 74 19 109/70 (83) 95 10/28/19 21:00 Room Air 10/28/19 20:59 112/79 10/28/19 20:00 65 10/28/19 20:00 99.9 69 20 112/79 (90) 94 10/28/19 16:00 98.2 77 20 132/64 (86) 97 10/28/19 15:13 63 10/28/19 12:00 99.5 93 20 125/85 (98) 94 10/28/19 11:24 60 Height (Feet): 5 Height (Inches): 3.00 Weight (Pounds): 323 Objective GENERAL: Patient is well-developed, well-nourished, slightly obese female, in no apparent distress. HEENT: Eyes, pupils are equal and responsive to light and accommodation. Extraocular movements are intact. NECK: Supple. No lymphadenopathy. CHEST: Lungs are clear to auscultation bilaterally without wheezes or rales. CARDIOVASCULAR: Regular rate. S1, S2 are normal without murmurs, rubs, or gallops. ABDOMEN: Soft, nontender, nondistended. Positive bowel sounds. No evidence of hepatosplenomegaly. Currently no rebound or guarding noted. EXTREMITIES: Negative for clubbing, cyanosis, or edema. Laboratory Tests Test 10/29/19 04:10 White Blood Count 5.5 K/UL (4.8-10.8) Red Blood Count 3.50 M/UL (4.20-5.40) L Hemoglobin 9.3 G/DL (12.0-16.0) L Hematocrit 30.8 % (37.0-47.0) L Mean Corpuscular Volume 88 FL (80-99) Mean Corpuscular Hemoglobin 26.6 PG (27.0-31.0) L Mean Corpuscular Hemoglobin Concent 30.1 G/DL (32.0-36.0) L Red Cell Distribution Width 15.1 % (11.6-14.8) H Platelet Count 382 K/UL (150-450) Mean Platelet Volume 8.2 FL (6.5-10.1) Neutrophils (%) (Auto) 60.7 % (45.0-75.0) Lymphocytes (%) (Auto) 18.2 % (20.0-45.0) L Monocytes (%) (Auto) 16.3 % (1.0-10.0) H Eosinophils (%) (Auto) 2.0 % (0.0-3.0) Basophils (%) (Auto) 2.8 % (0.0-2.0) H Prothrombin Time 13.4 SEC (9.30-11.50) H Prothromb Time International Ratio 1.2 (0.9-1.1) H Activated Partial Thromboplast Time 80 SEC (23-33) H Sodium Level 138 MMOL/L (136-145) Potassium Level 3.9 MMOL/L (3.5-5.1) Chloride Level 101 MMOL/L (98-107) Carbon Dioxide Level 29 MMOL/L (21-32) Blood Urea Nitrogen 22 mg/dL (7-18) H Creatinine 2.3 MG/DL (0.55-1.30) H Estimat Glomerular Filtration Rate 25.1 mL/min (>60) Glucose Level 122 MG/DL (74-106) H Calcium Level 9.2 MG/DL (8.5-10.1) Phosphorus Level 5.0 MG/DL (2.5-4.9) H Magnesium Level 1.4 MG/DL (1.8-2.4) L Total Bilirubin 0.2 MG/DL (0.2-1.0) Aspartate Amino Transf (AST/SGOT) 14 U/L (15-37) L Alanine Aminotransferase (ALT/SGPT) 7 U/L (12-78) L Alkaline Phosphatase 105 U/L (46-116) Total Protein 7.7 G/DL (6.4-8.2) Albumin 2.3 G/DL (3.4-5.0) L Globulin 5.4 g/dL Albumin/Globulin Ratio 0.4 (1.0-2.7) L Current Medications Medications (Trade) Dose Ordered Sig/Adria Route PRN Reason Start Time Stop Time Status Last Admin Dose Admin Acetaminophen (Tylenol) 650 mg Q4H PRN ORAL fever 10/11/19 08:30 11/09/19 08:29 10/28/19 08:34 Acetaminophen (Tylenol) 650 mg Q4H PRN RECTAL Temp >100.5 10/14/19 06:30 11/13/19 06:29 Albuterol/ Ipratropium (Albuterol/ Ipratropium) 3 ml Q4HRT PRN HHN sob 10/27/19 08:30 11/01/19 08:29 Allopurinol (allopurinoL) 300 mg DAILY ORAL 10/24/19 09:00 11/23/19 08:59 10/29/19 09:58 Amlodipine Besylate (Norvasc) 10 mg DAILY ORAL 10/21/19 09:00 11/20/19 08:59 10/29/19 09:58 Aspirin (Ecotrin) 81 mg DAILY ORAL 10/11/19 09:00 11/25/19 08:59 10/29/19 09:59 Atorvastatin Calcium (Lipitor) 40 mg BEDTIME ORAL 10/12/19 21:00 01/10/20:59 10/28/19 20:59 Clonidine HCl (Catapres Tab) 0.1 mg Q4H PRN ORAL Blood pressure over 160 systol 10/11/19 08:30 01/08/20 08:29 10/25/19 05:10 Dextrose (Dextrose 50%) 25 ml Q30M PRN IV Hypoglycemia 10/11/19 08:30 01/08/20 11:29 Dextrose (Dextrose 50%) 50 ml Q30M PRN IV Hypoglycemia 10/11/19 08:30 01/08/20 11:29 Docusate Sodium (Colace) 100 mg THREE TIMES A DAY ORAL 10/11/19 09:00 11/09/19 17:59 10/28/19 08:33 Furosemide (Lasix) 40 mg DAILY ORAL 10/27/19 09:00 11/26/19 08:59 10/29/19 09:58 Gabapentin (Neurontin) 200 mg THREE TIMES A DAY ORAL 10/16/19 13:00 11/09/19 12:59 10/29/19 09:57 Heparin Sodium/ Dextrose 500 ml @ 43.953 mls/ hr ADJUST PER PROTOCOL IV 10/26/19 19:45 11/25/19 19:44 10/29/19 08:14 Hydralazine HCl (Apresoline) 25 mg Q12HR ORAL 10/27/19 21:00 01/25/20 20:59 10/29/19 09:59 Insulin Aspart (NovoLOG) BEFORE MEALS AND HS SUBQ 10/11/19 11:30 01/08/20 11:29 10/28/19 21:01 Isosorbide Mononitrate (Imdur) 30 mg DAILY ORAL 10/13/19 09:00 11/12/19 08:59 10/29/19 09:58 Latanoprost (Xalatan) 1 drop BEDTIME BOTH EYES 10/17/19 21:00 11/16/19 20:59 10/28/19 21:02 Magnesium Sulfate 100 ml @ 100 mls/hr Q1H IVPB 10/29/19 10:00 10/29/19 13:59 10/29/19 09:58 Nitroglycerin (Ntg) 0.4 mg Q5M PRN SL Prn Chest Pain 10/11/19 08:30 11/09/19 11:29 Ondansetron HCl (Zofran) 4 mg Q6H PRN IVP Nausea & Vomiting 10/11/19 08:30 11/09/19 08:29 Pantoprazole (Protonix) 40 mg EVERY 12 HOURS ORAL 10/14/19 21:00 11/13/19 20:59 10/29/19 09:59 Polyethylene Glycol (Miralax) 17 gm DAILYPRN PRN ORAL Constipation 10/11/19 08:30 11/09/19 08:29 Tramadol HCl (Ultram) 50 mg Q6H PRN ORAL pain 7-10 10/28/19 11:30 11/04/19 11:29 10/28/19 12:06 Warfarin Sodium (Coumadin per pharmacy) 1 ea DAILY PRN MISC Per rx protocol 10/26/19 10:15 11/25/19 10:14 Warfarin Sodium (Coumadin) 7.5 mg COUMADIN ORAL 10/29/19 17:00 10/29/19 18:00 Hannah Mays M.D. Oct 29, 2019 11:06
[2019-10-29 12:00] VITALS: BP 122/77
--- NOTE | 2019-10-29 12:39 | Pulmonology Progress Note ---
Subjective ROS Limited/Unobtainable: No Interval Events: doing better Constitutional: Reports: no symptoms HEENT: Repors: no symptoms Gastrointestinal/Abdominal: Reports: other - pain in left lower abdominal quatdrant Musculoskeletal: Reports: no symptoms Allergies: Coded Allergies: CODEINE (Verified Allergy, Unknown, 10/10/19) Objective Last 24 Hour Vital Signs Date Time Temp Pulse Resp B/P (MAP) Pulse Ox O2 Delivery O2 Flow Rate FiO2 10/29/19 09:59 125/68 10/29/19 09:58 73 125/68 10/29/19 09:58 125/68 10/29/19 09:00 Room Air 10/29/19 08:00 98.2 73 18 125/68 (87) 95 10/29/19 07:16 78 10/29/19 04:00 60 10/29/19 04:00 97.9 82 19 104/77 (86) 93 10/29/19 00:00 62 10/29/19 00:00 98.9 74 19 109/70 (83) 95 10/28/19 21:00 Room Air 10/28/19 20:59 112/79 10/28/19 20:00 65 10/28/19 20:00 99.9 69 20 112/79 (90) 94 10/28/19 16:00 98.2 77 20 132/64 (86) 97 10/28/19 15:13 63 Intake and Output 10/28/19 10/29/19 19:00 07:00 Intake Total 887.436 ml 350 ml Output Total 2400 ml 1600 ml Balance -1512.564 ml -1250 ml Intake Oral 360 ml 350 ml IV Total 527.436 ml Output Urine Total 2400 ml 1600 ml # Bowel Movements 1 General Appearance: WD/WN HEENT: normocephalic, atraumatic Respiratory: chest wall non-tender, lungs clear Breasts: no masses Cardiovascular: normal peripheral pulses Abdomen: normal bowel sounds, soft, non tender Genitourinary: normal external genitalia Skin: no rash Neurologic: manager of broadcast content II-XII grossly normal Laboratory Tests 10/29/19 04:10: White Blood Count 5.5, Red Blood Count 3.50L, Hemoglobin 9.3L, Hematocrit 30.8L , Mean Corpuscular Volume 88, Mean Corpuscular Hemoglobin 26.6L, Mean Corpuscular Hemoglobin Concent 30.1L, Red Cell Distribution Width 15.1H, Platelet Count 382, Mean Platelet Volume 8.2, Neutrophils (%) (Auto) 60.7, Lymphocytes (%) (Auto) 18.2L, Monocytes (%) (Auto) 16.3H, Eosinophils (%) (Auto ) 2.0, Basophils (%) (Auto) 2.8H, Prothrombin Time 13.4H, Prothromb Time International Ratio 1.2H, Activated Partial Thromboplast Time 80H, Sodium Level 138, Potassium Level 3.9, Chloride Level 101, Carbon Dioxide Level 29, Blood Urea Nitrogen 22H, Creatinine 2.3H, Estimat Glomerular Filtration Rate 25.1, Glucose Level 122H, Calcium Level 9.2, Phosphorus Level 5.0H, Magnesium Level 1.4L, Total Bilirubin 0.2, Aspartate Amino Transf (AST/SGOT) 14L, Alanine Aminotransferase (ALT/SGPT) 7L, Alkaline Phosphatase 105, Total Protein 7.7, Albumin 2.3L, Globulin 5.4, Albumin/Globulin Ratio 0.4L Current Medications Medications (Trade) Dose Ordered Sig/Adria Route PRN Reason Start Time Stop Time Status Last Admin Dose Admin Acetaminophen (Tylenol) 650 mg Q4H PRN ORAL fever 10/11/19 08:30 11/09/19 08:29 10/28/19 08:34 Acetaminophen (Tylenol) 650 mg Q4H PRN RECTAL Temp >100.5 10/14/19 06:30 11/13/19 06:29 Albuterol/ Ipratropium (Albuterol/ Ipratropium) 3 ml Q4HRT PRN HHN sob 10/27/19 08:30 11/01/19 08:29 Allopurinol (allopurinoL) 300 mg DAILY ORAL 10/24/19 09:00 11/23/19 08:59 10/29/19 09:58 Amlodipine Besylate (Norvasc) 10 mg DAILY ORAL 10/21/19 09:00 11/20/19 08:59 10/29/19 09:58 Aspirin (Ecotrin) 81 mg DAILY ORAL 10/11/19 09:00 11/25/19 08:59 10/29/19 09:59 Atorvastatin Calcium (Lipitor) 40 mg BEDTIME ORAL 10/12/19 21:00 01/10/20 20:59 10/28/19 20:59 Clonidine HCl (Catapres Tab) 0.1 mg Q4H PRN ORAL Blood pressure over 160 systol 10/11/19 08:30 01/08/20 08:29 10/25/19 05:10 Dextrose (Dextrose 50%) 25 ml Q30M PRN IV Hypoglycemia 10/11/19 08:30 01/08/20 11:29 Dextrose (Dextrose 50%) 50 ml Q30M PRN IV Hypoglycemia 10/11/19 08:30 01/08/20 11:29 Docusate Sodium (Colace) 100 mg THREE TIMES A DAY ORAL 10/11/19 09:00 11/09/19 17:59 10/28/19 08:33 Furosemide (Lasix) 40 mg DAILY ORAL 10/27/19 09:00 11/26/19 08:59 10/29/19 09:58 Gabapentin (Neurontin) 200 mg THREE TIMES A DAY ORAL 10/16/19 13:00 11/09/19 12:59 10/29/19 09:57 Heparin Sodium/ Dextrose 500 ml @ 43.953 mls/ hr ADJUST PER PROTOCOL IV 10/26/19 19:45 11/25/19 19:44 10/29/19 08:14 Hydralazine HCl (Apresoline) 25 mg Q12HR ORAL 10/27/19 21:00 01/25/20 20:59 10/29/19 09:59 Insulin Aspart (NovoLOG) BEFORE MEALS AND HS SUBQ 10/11/19 11:30 01/08/20 11:29 10/29/19 11:30 Isosorbide Mononitrate (Imdur) 30 mg DAILY ORAL 10/13/19 09:00 11/12/19 08:59 10/29/19 09:58 Latanoprost (Xalatan) 1 drop BEDTIME BOTH EYES 10/17/19 21:00 11/16/19 20:59 10/28/19 21:02 Magnesium Sulfate 100 ml @ 100 mls/hr Q1H IVPB 10/29/19 10:00 10/29/19 13:59 10/29/19 12:11 Nitroglycerin (Ntg) 0.4 mg Q5M PRN SL Prn Chest Pain 10/11/19 08:30 11/09/19 11:29 Ondansetron HCl (Zofran) 4 mg Q6H PRN IVP Nausea & Vomiting 10/11/19 08:30 11/09/19 08:29 Pantoprazole (Protonix) 40 mg EVERY 12 HOURS ORAL 10/14/19 21:00 11/13/19 20:59 10/29/19 09:59 Polyethylene Glycol (Miralax) 17 gm DAILYPRN PRN ORAL Constipation 10/11/19 08:30 11/09/19 08:29 Tramadol HCl (Ultram) 50 mg Q6H PRN ORAL pain 7-10 10/28/19 11:30 11/04/19 11:29 10/28/19 12:06 Warfarin Sodium (Coumadin per pharmacy) 1 ea DAILY PRN MISC Per rx protocol 10/26/19 10:15 11/25/19 10:14 Warfarin Sodium (Coumadin) 7.5 mg COUMADIN ORAL 10/29/19 17:00 10/29/19 18:00 Assessment/Plan Problems: (1) Sepsis (2) Peripheral edema (3) Anasarca (4) NSTEMI (non-ST elevated myocardial infarction) (5) Renal failure (ARF), acute on chronic (6) Pyelonephritis (7) Atrial fibrillation with rapid ventricular response (8) Chronic atrial fibrillation (9) Limited mobility (10) Anemia (11) Diabetes mellitus (12) Morbid obesity Assessment/Plan on oral lasix, bun/creatinine stable off abx. wbc wnl, no feveres on Heparin drip and Coumadin, INR 1.2 asymptomatic electrolytes supplement sliding scale diabetic diet renal studies dvt prophylaxis. Banadr Brownlee MD Oct 29, 2019 12:39
[2019-10-29 16:00] VITALS: BP 156/75
--- NOTE | 2019-10-29 16:33 | Internal Med Progress Note ---
Subjective Date of Service: Oct 29, 2019 Physician Name Blankenship,Johny Attending Physician Aleksandr Vega MD Current Medications Medications (Trade) Dose Ordered Sig/Adria Route PRN Reason Start Time Stop Time Status Last Admin Dose Admin Acetaminophen (Tylenol) 650 mg Q4H PRN ORAL fever 10/11/19 08:30 11/09/19 08:29 10/28/19 08:34 Acetaminophen (Tylenol) 650 mg Q4H PRN RECTAL Temp >100.5 10/14/19 06:30 11/13/19 06:29 Albuterol/ Ipratropium (Albuterol/ Ipratropium) 3 ml Q4HRT PRN HHN sob 10/27/19 08:30 11/01/19 08:29 Allopurinol (allopurinoL) 300 mg DAILY ORAL 10/24/19 09:00 11/23/19 08:59 10/29/19 09:58 Amlodipine Besylate (Norvasc) 10 mg DAILY ORAL 10/21/19 09:00 11/20/19 08:59 10/29/19 09:58 Aspirin (Ecotrin) 81 mg DAILY ORAL 10/11/19 09:00 11/25/19 08:59 10/29/19 09:59 Atorvastatin Calcium (Lipitor) 40 mg BEDTIME ORAL 10/12/19 21:00 01/10/20 20:59 10/28/19 20:59 Clonidine HCl (Catapres Tab) 0.1 mg Q4H PRN ORAL Blood pressure over 160 systol 10/11/19 08:30 01/08/20 08:29 10/25/19 05:10 Dextrose (Dextrose 50%) 25 ml Q30M PRN IV Hypoglycemia 10/11/19 08:30 01/08/20 11:29 Dextrose (Dextrose 50%) 50 ml Q30M PRN IV Hypoglycemia 10/11/19 08:30 01/08/20 11:29 Docusate Sodium (Colace) 100 mg THREE TIMES A DAY ORAL 10/11/19 09:00 11/09/19 17:59 10/28/19 08:33 Furosemide (Lasix) 40 mg DAILY ORAL 10/27/19 09:00 11/26/19 08:59 10/29/19 09:58 Gabapentin (Neurontin) 200 mg THREE TIMES A DAY ORAL 10/16/19 13:00 11/09/19 12:59 10/29/19 13:06 Heparin Sodium/ Dextrose 500 ml @ 43.953 mls/ hr ADJUST PER PROTOCOL IV 10/26/19 19:45 11/25/19 19:44 10/29/19 08:14 Hydralazine HCl (Apresoline) 25 mg Q12HR ORAL 10/27/19 21:00 01/25/20 20:59 10/29/19 09:59 Insulin Aspart (NovoLOG) BEFORE MEALS AND HS SUBQ 10/11/19 11:30 01/08/20 11:29 10/29/19 11:30 Isosorbide Mononitrate (Imdur) 30 mg DAILY ORAL 10/13/19 09:00 11/12/19 08:59 10/29/19 09:58 Latanoprost (Xalatan) 1 drop BEDTIME BOTH EYES 10/17/19 21:00 11/16/19 20:59 10/28/19 21:02 Nitroglycerin (Ntg) 0.4 mg Q5M PRN SL Prn Chest Pain 10/11/19 08:30 11/09/19 11:29 Ondansetron HCl (Zofran) 4 mg Q6H PRN IVP Nausea & Vomiting 10/11/19 08:30 11/09/19 08:29 Pantoprazole (Protonix) 40 mg EVERY 12 HOURS ORAL 10/14/19 21:00 11/13/19 20:59 10/29/19 09:59 Polyethylene Glycol (Miralax) 17 gm DAILYPRN PRN ORAL Constipation 10/11/19 08:30 11/09/19 08:29 Tramadol HCl (Ultram) 50 mg Q6H PRN ORAL pain 7-10 10/28/19 11:30 11/04/19 11:29 10/28/19 12:06 Warfarin Sodium (Coumadin per pharmacy) 1 ea DAILY PRN MISC Per rx protocol 10/26/19 10:15 11/25/19 10:14 Warfarin Sodium (Coumadin) 7.5 mg COUMADIN ORAL 10/29/19 17:00 10/29/19 18:00 Allergies: Coded Allergies: CODEINE (Verified Allergy, Unknown, 10/10/19) ROS Limited/Unobtainable: No Constitutional: Reports: no symptoms HEENT: Reports: no symptoms Cardiovascular: Reports: no symptoms Respiratory: Reports: no symptoms Gastrointestinal/Abdominal: Reports: no symptoms Genitourinary: Reports: no symptoms Neurologic/Psychiatric: Reports: no symptoms Subjective 74 YO F admitted with altered mental status and fever. Now UTI and sepsis. Cover for Int Pablo-Dr Vega. Refused V/Q scan Objective Last Vital Signs Date Time Temp Pulse Resp B/P (MAP) Pulse Ox O2 Delivery O2 Flow Rate FiO2 10/29/19 16:00 98.1 70 18 156/75 (102) 97 10/29/19 09:00 Room Air 10/27/19 20:15 21 Laboratory Tests Test 10/29/19 04:10 White Blood Count 5.5 K/UL (4.8-10.8) Red Blood Count 3.50 M/UL (4.20-5.40) L Hemoglobin 9.3 G/DL (12.0-16.0) L Hematocrit 30.8 % (37.0-47.0) L Mean Corpuscular Volume 88 FL (80-99) Mean Corpuscular Hemoglobin 26.6 PG (27.0-31.0) L Mean Corpuscular Hemoglobin Concent 30.1 G/DL (32.0-36.0) L Red Cell Distribution Width 15.1 % (11.6-14.8) H Platelet Count 382 K/UL (150-450) Mean Platelet Volume 8.2 FL (6.5-10.1) Neutrophils (%) (Auto) 60.7 % (45.0-75.0) Lymphocytes (%) (Auto) 18.2 % (20.0-45.0) L Monocytes (%) (Auto) 16.3 % (1.0-10.0) H Eosinophils (%) (Auto) 2.0 % (0.0-3.0) Basophils (%) (Auto) 2.8 % (0.0-2.0) H Prothrombin Time 13.4 SEC (9.30-11.50) H Prothromb Time International Ratio 1.2 (0.9-1.1) H Activated Partial Thromboplast Time 80 SEC (23-33) H Sodium Level 138 MMOL/L (136-145) Potassium Level 3.9 MMOL/L (3.5-5.1) Chloride Level 101 MMOL/L (98-107) Carbon Dioxide Level 29 MMOL/L (21-32) Blood Urea Nitrogen 22 mg/dL (7-18) H Creatinine 2.3 MG/DL (0.55-1.30) H Estimat Glomerular Filtration Rate 25.1 mL/min (>60) Glucose Level 122 MG/DL (74-106) H Calcium Level 9.2 MG/DL (8.5-10.1) Phosphorus Level 5.0 MG/DL (2.5-4.9) H Magnesium Level 1.4 MG/DL (1.8-2.4) L Total Bilirubin 0.2 MG/DL (0.2-1.0) Aspartate Amino Transf (AST/SGOT) 14 U/L (15-37) L Alanine Aminotransferase (ALT/SGPT) 7 U/L (12-78) L Alkaline Phosphatase 105 U/L (46-116) Total Protein 7.7 G/DL (6.4-8.2) Albumin 2.3 G/DL (3.4-5.0) L Globulin 5.4 g/dL Albumin/Globulin Ratio 0.4 (1.0-2.7) L Intake and Output 10/28/19 10/29/19 19:00 07:00 Intake Total 887.436 ml 350 ml Output Total 2400 ml 1600 ml Balance -1512.564 ml -1250 ml Intake Oral 360 ml 350 ml IV Total 527.436 ml Output Urine Total 2400 ml 1600 ml # Bowel Movements 1 Objective PHYSICAL EXAMINATION: GENERAL: Patient is well-developed, well-nourished, slightly obese female, in no apparent distress. HEENT: Eyes, pupils are equal and responsive to light and accommodation. Extraocular movements are intact. NECK: Supple. No lymphadenopathy. CHEST: Lungs are clear to auscultation bilaterally without wheezes or rales. CARDIOVASCULAR: Regular rate. S1, S2 are normal without murmurs, rubs, or gallops. ABDOMEN: Soft, nontender, nondistended. Positive bowel sounds. No evidence of hepatosplenomegaly. Currently no rebound or guarding noted. EXTREMITIES: Negative for clubbing, cyanosis, or edema. RECTAL/GENITAL: Not performed. NEUROLOGIC: Cranial nerves II to XII grossly intact without focal deficits Assessment/Plan Assessment/Plan ASSESSMENT: This is a 74-year-old female. 1. Sepsis=E. Coli 2. UTI=E. Coli 3. Altered mental status. 4. Leukocytosis. 5. Elevated troponin. 6. Atrial fibrillation. 7. Diabetes type 2. 8. Hypertension. 9. Hyperthyroidism. 10. Coronary artery disease. 11. Renal failure. 12. Hypercholesterolemia. 13. Chronic lymphedema of the bilateral lower extremities. 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 Urinary Tract infection-E. Coli ABX=ceftriaxone, S/P meropenem. Infectious Disease=Dr. Mays. We will follow recommendations of Infectious Disease. 2. Sepsis=E. Coli Await culture and sensitivity result. Continue meropenem per ID. 3. Altered mental status. Resolved 4. Leukocytosis. Resolved 5. Elevated troponin. A Cardiology consultation has been obtained with Dr. Arun Barker. 6. Atrial fibrillation. Continue Coumadin as above. A Cardiology consultation has been obtained with Dr. Arun Barker. 7. Diabetes type 2. NovoLog sliding scale has been instituted. 8. Hypertension. Patient is currently hypotensive. Hold amlodipine as above. 9. Hyperthyroidism. Continue methimazole as above. 10. Coronary artery disease. Patient has elevated troponin. A Cardiology consultation has been obtained with Dr. Arun Barker. 11. Renal failure. A Nephrology consultation has been obtained with Dr. Pantera Wallace. 12. Hypercholesterolemia. Continue simvastatin as above. 13. Chronic lymphedema of bilateral lower extremities. 14. Will need CT abdomen/pelvis to R/O abscess-see ID note. 15. Await cardiac cath-see cardiology note 16. Refused V/Q scan to R/O pulmonary embolism; Continue heparin drip unitl coumadin therapeutic 17. Non invasive W/U vs cardiac cath 18. Discharge planning: [facility] Johny Blankenship MD Oct 29, 2019 16:33
[2019-10-29] MEDS ORDERED: Warfarin Sodium 7.5mg ORAL SCH (17:00)
--- NOTE | 2019-10-29 17:33 | Cardiology Progress Note ---
Assessment/Plan Assessment/Plan 1. Permanent atrial fibrillation, on anticoagulation. 2. Toxic-metabolic encephalopathy. 3. Urinary tract infection, question pyelonephritis. 4. Diabetes mellitus. 5. Hypertension history. 6. Morbid obesity. 7. Myocardial infarction. 8. Acute on chronic renal insufficiency. 9. Coagulopathy secondary to Coumadin. 10. Bacteremia gnr 11. Iron def 12 RV hypokinesis and enlargment 13. pain in the left groin 14. tania trop may be related to poulm embolism or cad venous duplex neg but tech difficult study for now remain on heparin for afib and possible PE bp seeem ok on norvasc lwo grade fever echo repeated 10/21 lv function still good rv is mildly enlarged and hypo had ct i discussed with radiologist no evidence of hematoma noted on the ct on 10/21 i discussed with pt the result of the trop and my concern about the possibility of pe (for which she declined v/q) the possibility of underlying cad which will need to have coronary angiogram performed , she declined [facility]ogram told me [facility] , she understand that it was 5 years ago , but she still declines cardiac cath heparin / couamdin cross over on lasix 40mg dialy bell captain was gettign bid tele reviewed afib vr seem ok now off coreg since 10/22 pt has previosuly decided not to racquel doacs as had been cotnrolled inr until recently , also doacs in overweigh pt may nto be dose appropriateley may be going to snf will need lovenox until inr therapeutic Objective Last 24 Hour Vital Signs Date Time Temp Pulse Resp B/P (MAP) Pulse Ox O2 Delivery O2 Flow Rate FiO2 10/29/19 16:00 98.1 70 18 156/75 (102) 97 10/29/19 12:00 97.9 70 20 122/77 (92) 96 10/29/19 11:20 69 10/29/19 09:59 125/68 10/29/19 09:58 73 125/68 10/29/19 09:58 125/68 10/29/19 09:00 Room Air 10/29/19 08:00 98.2 73 18 125/68 (87) 95 10/29/19 07:16 78 10/29/19 04:00 60 10/29/19 04:00 97.9 82 19 104/77 (86) 93 10/29/19 00:00 62 10/29/19 00:00 98.9 74 19 109/70 (83) 95 10/28/19 21:00 Room Air 10/28/19 20:59 112/79 10/28/19 20:00 65 10/28/19 20:00 99.9 69 20 112/79 (90) 94 Intake and Output 10/28/19 10/29/19 19:00 07:00 Intake Total 887.436 ml 350 ml Output Total 2400 ml 1600 ml Balance -1512.564 ml -1250 ml Intake Oral 360 ml 350 ml IV Total 527.436 ml Output Urine Total 2400 ml 1600 ml # Bowel Movements 1 Laboratory Tests Test 10/29/19 04:10 White Blood Count 5.5 K/UL (4.8-10.8) Red Blood Count 3.50 M/UL (4.20-5.40) L Hemoglobin 9.3 G/DL (12.0-16.0) L Hematocrit 30.8 % (37.0-47.0) L Mean Corpuscular Volume 88 FL (80-99) Mean Corpuscular Hemoglobin 26.6 PG (27.0-31.0) L Mean Corpuscular Hemoglobin Concent 30.1 G/DL (32.0-36.0) L Red Cell Distribution Width 15.1 % (11.6-14.8) H Platelet Count 382 K/UL (150-450) Mean Platelet Volume 8.2 FL (6.5-10.1) Neutrophils (%) (Auto) 60.7 % (45.0-75.0) Lymphocytes (%) (Auto) 18.2 % (20.0-45.0) L Monocytes (%) (Auto) 16.3 % (1.0-10.0) H Eosinophils (%) (Auto) 2.0 % (0.0-3.0) Basophils (%) (Auto) 2.8 % (0.0-2.0) H Prothrombin Time 13.4 SEC (9.30-11.50) H Prothromb Time International Ratio 1.2 (0.9-1.1) H Activated Partial Thromboplast Time 80 SEC (23-33) H Sodium Level 138 MMOL/L (136-145) Potassium Level 3.9 MMOL/L (3.5-5.1) Chloride Level 101 MMOL/L (98-107) Carbon Dioxide Level 29 MMOL/L (21-32) Blood Urea Nitrogen 22 mg/dL (7-18) H Creatinine 2.3 MG/DL (0.55-1.30) H Estimat Glomerular Filtration Rate 25.1 mL/min (>60) Glucose Level 122 MG/DL (74-106) H Calcium Level 9.2 MG/DL (8.5-10.1) Phosphorus Level 5.0 MG/DL (2.5-4.9) H Magnesium Level 1.4 MG/DL (1.8-2.4) L Total Bilirubin 0.2 MG/DL (0.2-1.0) Aspartate Amino Transf (AST/SGOT) 14 U/L (15-37) L Alanine Aminotransferase (ALT/SGPT) 7 U/L (12-78) L Alkaline Phosphatase 105 U/L (46-116) Total Protein 7.7 G/DL (6.4-8.2) Albumin 2.3 G/DL (3.4-5.0) L Globulin 5.4 g/dL Albumin/Globulin Ratio 0.4 (1.0-2.7) L Arun Barker MD Oct 29, 2019 17:33
--- NOTE | 2019-10-29 19:45 | NUR ---
HAND-OFF: Report given to RUTHANN Mcgrath. Pt in stable condition, endorsed plan of care.
[2019-10-29 20:00] VITALS: BP 121/91
--- NOTE | 2019-10-29 20:15 | NUR ---
NURSE NOTES: Received patient report from RUTHANN Shahid. Patient shows no signs of distress or pain at the time. AO x 4. Patient is currently connected to Heparin drip running at 15 units/ kg/ hr. IV is patent and running. There are no signs of erythema, infiltration, or bleeding. Bed is in the lowest position, call light within reach, side rails up x 3, and alexandra draining. Will continue plan of care.
[2019-10-29] MEDS: Atorvastatin 20mg tab ORAL SCH (20:58)
[2019-10-29] MEDS: Latanoprost 0.005% Opth 2.5ml Soln BOTH EYES SCH (21:01)
[2019-10-30] VITALS: BP 146/60
[2019-10-30 04:00] VITALS: BP 150/66
[2019-10-30 04:29] LABS: ANION GAP 9 mmol/L (5-15); BLOOD UREA NITROGEN 22 mg/dL (7-18); CALCIUM 9.1 MG/DL (8.5-10.1); CARBON DIOXIDE 29 MMOL/L (21-32); CHLORIDE 100 MMOL/L (98-107); CREATININE 2.3 MG/DL (0.55-1.30); POTASSIUM 3.9 MMOL/L (3.5-5.1); SODIUM 137 MMOL/L (136-145)
[2019-10-30 04:33] LABS: INR 1.3 (0.9-1.1)
[2019-10-30 04:48] LABS: BASOPHILS % (AUTO) 1.3 % (0.0-2.0); EOSINOPHILS % (AUTO) 2.9 % (0.0-3.0); HEMATOCRIT 30.5 % (37.0-47.0); HEMOGLOBIN 9.3 G/DL (12.0-16.0); LYMPHOCYTES % (AUTO) 21.7 % (20.0-45.0); MEAN CORPUSCULAR VOLUME 88 FL (80-99); MONOCYTES % (AUTO) 12.8 % (1.0-10.0); NEUTROPHILS % (AUTO) 61.2 % (45.0-75.0); PLATELET COUNT 395 K/UL (150-450); RED BLOOD COUNT 3.47 M/UL (4.20-5.40); RED CELL DISTRIBUTION WIDTH 15.3 % (11.6-14.8); WHITE BLOOD COUNT 5.3 K/UL (4.8-10.8)
[2019-10-30] MEDS: NovoLOG Insulin Flexpen SUBQ SCH ×4 (06:30→21:09)
[2019-10-30] MEDS ORDERED: Heparin 5000 units/ml inj IV ONE (07:00)
--- NOTE | 2019-10-30 07:25 | NUR ---
NURSE NOTES: Report received from RUTHANN Mcgrath. Pt. AOx4. In RA. Denies pain. Heparin drip rate change dual signed. Bed on lower position, side rails upx2, brakes engaged, call light within easy reach.
[2019-10-30] MEDS: Heparin 25,000u/D5W 500ml 500 ML IV SCH ×4 (07:38→22:15)
[2019-10-30 08:00] VITALS: BP 144/80
--- NOTE | 2019-10-30 08:01 | NUR ---
HAND-OFF: Report given to RUTHANN Biswas. Patient shows no signs of distress or paina t the time. Endorsed plan of care.
--- NOTE | 2019-10-30 08:13 | NUR ---
NURSE NOTES: Bilateral wrist edema noticed. on left wrist edema away from IV site. No discoloration noted.
[2019-10-30] MEDS: Furosemide 40mg tab ORAL SCH (08:54)
[2019-10-30] MEDS: Imdur 30mg tab ORAL SCH (08:54)
[2019-10-30] MEDS: HydrALAZINE 25mg tab ORAL SCH ×2 (08:54→21:07)
[2019-10-30] MEDS: Aspirin EC 81mg tab ORAL SCH (08:55)
[2019-10-30] MEDS: Docusate 100mg cap ORAL SCH ×3 (08:55→17:30)
--- NOTE | 2019-10-30 10:24 | Diagnostic Imaging Report ---
Procedure: XRAY Chest 1v Reason for study: Reason For Exam: SOB Comparison films: 10/25/2019. FINDINGS: A single one view chest is obtained. Vascularity is normal. The lung mckeon are clear bilaterally. Cardiomegaly noted CP angles are sharp. The bony thorax appear unremarkable. IMPRESSION: No change cardiomegaly. No acute alveolar disease.
--- NOTE | 2019-10-30 10:40 | Nephrology Progress Note ---
Assessment/Plan Problem List: (1) Renal failure (ARF), acute on chronic (2) Diabetes mellitus (3) Morbid obesity (4) Chronic atrial fibrillation (5) History of DVT (deep vein thrombosis) (6) Anemia (7) NSTEMI (non-ST elevated myocardial infarction) (8) Sepsis (9) Pyelonephritis Assessment Renal failure, most likely acute on chronic. Sepsis, leukocytosis, fever, suspected 2019 novel coronavirus infection. Encephalopathy most likely toxic metabolic UTI/pyelonephritis Anemia Atrial fibrillation chronic, with fast ventricular rate. Diabetes mellitus Morbid obesity/limited mobility History of DVT Elevated troponin I Lactic acidosis Plan October 29: Discussed with RN. Will discontinue Anne. Serum creatinine stable. Continue per consultants. October 28: Serum creatinine down to 2.3. Magnesium low. IV magnesium ordered. Continue per consultants. October 27: Serum creatinine up to 2.4. Otherwise stable. Continue per consultants. Hemoglobin down to 8.9 today. October 26: Serum creatinine lowered to 2.2. Clinically appears to be stable. Continue per consultants. October 25: Serum creatinine 2.5 stable. Chest x-ray reviewed. Mild CHF present. Will restart Lasix and adjust dose as needed . October 24: Serum creatinine rising. Patient has been on IV Lasix since October 22. Will hold IV Lasix, and check chest x-ray for evidence of CHF. Continue to monitor renal parameters. October 23: Status quo. Serum creatinine stable. Mag supplement IV given. Remains anemic hemoglobin stable. Full code. October 22: No chemistry panel done today. Status quo. Remains full code. Medication list reviewed. October 21: Labs reviewed. Serum creatinine stable. Patient remains full code. Continue per consultants. Urinalysis results from yesterday noted. Culture so far negative. October 20: Labs are reviewed. Creatinine 2.1. White blood cells within normal range. Blood pressure is reasonably controlled. Medication reviewed and adjusted. Coreg dose increased. UA and culture ordered. October 19: Lab reviewed. Creatinine lower. Will adjust blood pressure medication. Leukocytosis resolved. October 18: No can panel drawn today. Clinically stable. Will check labs in a.m. Continue per consultants. October 17: Serum creatinine stable lowering. Continues to improve. Full code. Continue per consultants. October 16: Serum creatinine lowering. White blood cell is lowering. Clinically improving. Continue per consultants. October 15: Serum creatinine lowered to 2.6. White blood cell count is also down to 17,000. Not much to add from renal standpoint of view. Continue per cardiology and per ID. October 14: Serum creatinine 2.8. No new changes. Continue per professional benefits sales consultant. Leukocytosis persists. Remains on meropenem. Continue per ID. October 13: Serum creatinine continues to lower. Troponin level also declining. Continue per cardiology management. Statins was restarted by cardiology. Continue to monitor renal parameters. October 12: Serum creatinine lowering. Troponin I is also declining. Continue per cardiology management. Will continue to follow-up renal parameters and CPK level. October 11: Statins stopped due to worsening LFTs. 1 dose of Plavix given. Imdur started. Serum creatinine stable. Continue per cardiology. Continue to monitor renal parameters and CPK. Monitor troponin I and CPK Aspirin, Coreg ,nitrate for elevated troponin Antibiotics Echocardiogram results noted Kidney ultrasound results pending Monitor urine output and renal parameters Keep the blood pressure and blood sugar in check Coumadin for DVT and atrial fibrillation IV Protonix Subjective ROS Limited/Unobtainable: No Constitutional: Reports: malaise Objective Objective Last 24 Hour Vital Signs Date Time Temp Pulse Resp B/P (MAP) Pulse Ox O2 Delivery O2 Flow Rate FiO2 10/30/19 09:00 Room Air 10/30/19 08:54 144/80 10/30/19 08:54 144/80 10/30/19 08:53 79 144/80 10/30/19 08:00 98.1 79 17 144/80 (101) 96 10/30/19 04:00 90 10/30/19 04:00 99.3 82 18 150/66 (94) 97 10/30/19 00:00 64 10/30/19 00:00 99.2 81 18 146/60 (88) 98 10/29/19 21:00 Room Air 10/29/19 20:59 152/88 10/29/19 20:00 98.0 94 18 121/91 (101) 98 10/29/19 20:00 81 10/29/19 19:48 73 18 97 Room Air 21 10/29/19 16:00 98.1 70 18 156/75 (102) 97 10/29/19 15:49 87 10/29/19 12:00 97.9 70 20 122/77 (92) 96 10/29/19 11:20 69 Intake and Output 10/29/19 10/30/19 19:00 07:00 Intake Total 360 ml Output Total 3700 ml 1500 ml Balance -3340 ml -1500 ml Intake Oral 360 ml Output Urine Total 3700 ml 1500 ml # Voids 1 # Bowel Movements 1 Laboratory Tests 10/30/19 04:14: White Blood Count 5.3, Red Blood Count 3.47L, Hemoglobin 9.3L, Hematocrit 30.5L , Mean Corpuscular Volume 88, Mean Corpuscular Hemoglobin 26.8L, Mean Corpuscular Hemoglobin Concent 30.4L, Red Cell Distribution Width 15.3H, Platelet Count 395, Mean Platelet Volume 8.4, Neutrophils (%) (Auto) 61.2, Lymphocytes (%) (Auto) 21.7, Monocytes (%) (Auto) 12.8H, Eosinophils (%) (Auto) 2.9, Basophils (%) (Auto) 1.3, Prothrombin Time 13.9H, Prothromb Time International Ratio 1.3H, Activated Partial Thromboplast Time 44H, Sodium Level 137, Potassium Level 3.9, Chloride Level 100, Carbon Dioxide Level 29, Anion Gap 9, Blood Urea Nitrogen 22H, Creatinine 2.3H, Estimat Glomerular Filtration Rate 25.1, Glucose Level 185H, Calcium Level 9.1 Height (Feet): 5 Height (Inches): 3.00 Weight (Pounds): 323 General Appearance: no apparent distress Cardiovascular: normal rate Respiratory/Chest: decreased breath sounds Abdomen: other - Obese Objective No change Pantera Wallace MD Oct 30, 2019 10:40
[2019-10-30 10:58] LABS: ALANINE AMINOTRANSFERASE 8 U/L (12-78); ALBUMIN 2.4 G/DL (3.4-5.0); ALKALINE PHOSPHATASE 105 U/L (46-116); ASPARTATE AMINO TRANSFERASE 20 U/L (15-37); BILIRUBIN,DIRECT 0.1 MG/DL (0.0-0.3); BILIRUBIN,TOTAL 0.2 MG/DL (0.2-1.0); PHOSPHORUS 4.5 MG/DL (2.5-4.9)
--- NOTE | 2019-10-30 11:20 | NUR ---
CASE MANAGEMENT:REVIEW 10/30/19 SI: BACTEREMIA. UTI. AMI COVID 19 NOT DETECTED 98.1 79 17 144/80 96% ON RA H/H-9.3/30.5 BUN+22 CR+2.3 GLUCOSE+185 INR-1.3 IS: HEPARIN GTT COUMADIN PO QD HYDRALAZINE PO Q12 LASIX PO QD ALLOPURINOL PO QD NORVASC PO QD NEURONTIN PO TID PROTONIX : TELEMETRY STATUS DCP: FROM [facility] PLAN: DC IF AFEBRILE FOR 24HRS AND PATIENT HAS REACHED INR GOAL OF 2.0
--- NOTE | 2019-10-30 11:30 | NUR ---
NURSE NOTES: Discussed FC DC planning with . Received an order to DC FC however, PT wants FC removed same day of discharge from hospital. Will continue to educate PT regarding UTI and FC duration and will DC FC when PT is willing.
[2019-10-30 12:00] VITALS: BP 129/70
--- NOTE | 2019-10-30 12:28 | Internal Med Progress Note ---
Subjective Date of Service: Oct 30, 2019 Physician Name PattieJohny Attending Physician Aleksandr Vega MD Current Medications Medications (Trade) Dose Ordered Sig/Adria Route PRN Reason Start Time Stop Time Status Last Admin Dose Admin Acetaminophen (Tylenol) 650 mg Q4H PRN ORAL fever 10/11/19 08:30 11/09/19 08:29 10/28/19 08:34 Acetaminophen (Tylenol) 650 mg Q4H PRN RECTAL Temp >100.5 10/14/19 06:30 11/13/19 06:29 Albuterol/ Ipratropium (Albuterol/ Ipratropium) 3 ml Q4HRT PRN HHN sob 10/27/19 08:30 11/01/19 08:29 Allopurinol (allopurinoL) 300 mg DAILY ORAL 10/24/19 09:00 11/23/19 08:59 10/30/19 08:54 Amlodipine Besylate (Norvasc) 10 mg DAILY ORAL 10/21/19 09:00 11/20/19 08:59 10/30/19 08:53 Aspirin (Ecotrin) 81 mg DAILY ORAL 10/11/19 09:00 11/25/19 08:59 10/30/19 08:55 Atorvastatin Calcium (Lipitor) 40 mg BEDTIME ORAL 10/12/19 21:00 01/10/20 20:59 10/29/19 20:58 Clonidine HCl (Catapres Tab) 0.1 mg Q4H PRN ORAL Blood pressure over 160 systol 10/11/19 08:30 01/08/20 08:29 10/25/19 05:10 Dextrose (Dextrose 50%) 25 ml Q30M PRN IV Hypoglycemia 10/11/19 08:30 01/08/20 11:29 Dextrose (Dextrose 50%) 50 ml Q30M PRN IV Hypoglycemia 10/11/19 08:30 01/08/20 11:29 Docusate Sodium (Colace) 100 mg THREE TIMES A DAY ORAL 10/11/19 09:00 11/09/19 17:59 10/28/19 08:33 Furosemide (Lasix) 40 mg DAILY ORAL 10/27/19 09:00 11/26/19 08:59 10/30/19 08:54 Gabapentin (Neurontin) 200 mg THREE TIMES A DAY ORAL 10/16/19 13:00 11/09/19 12:59 10/30/19 08:54 Heparin Sodium/ Dextrose 500 ml @ 55.674 mls/ hr ADJUST PER PROTOCOL IV 10/30/19 06:45 11/25/19 19:44 10/30/19 11:32 Hydralazine HCl (Apresoline) 25 mg Q12HR ORAL 10/27/19 21:00 01/25/20 20:59 10/30/19 08:54 Insulin Aspart (NovoLOG) BEFORE MEALS AND HS SUBQ 10/11/19 11:30 01/08/20 11:29 10/29/19 21:00 Isosorbide Mononitrate (Imdur) 30 mg DAILY ORAL 10/13/19 09:00 11/12/19 08:59 10/30/19 08:54 Latanoprost (Xalatan) 1 drop BEDTIME BOTH EYES 10/17/19 21:00 11/16/19 20:59 10/29/19 21:01 Nitroglycerin (Ntg) 0.4 mg Q5M PRN SL Prn Chest Pain 10/11/19 08:30 11/09/19 11:29 Ondansetron HCl (Zofran) 4 mg Q6H PRN IVP Nausea & Vomiting 10/11/19 08:30 11/09/19 08:29 Pantoprazole (Protonix) 40 mg EVERY 12 HOURS ORAL 10/14/19 21:00 11/13/19 20:59 10/30/19 08:55 Polyethylene Glycol (Miralax) 17 gm DAILYPRN PRN ORAL Constipation 10/11/19 08:30 11/09/19 08:29 Tramadol HCl (Ultram) 50 mg Q6H PRN ORAL pain 7-10/28/19 11:30 11/04/19 11:29 10/28/19 12:06 Warfarin Sodium (Coumadin per pharmacy) 1 ea DAILY PRN MISC Per rx protocol 10/26/19 10:15 11/25/19 10:14 Allergies: Coded Allergies: CODEINE (Verified Allergy, Unknown, 10/10/19) ROS Limited/Unobtainable: No Constitutional: Reports: no symptoms HEENT: Reports: no symptoms Cardiovascular: Reports: no symptoms Respiratory: Reports: no symptoms Gastrointestinal/Abdominal: Reports: no symptoms Genitourinary: Reports: no symptoms Neurologic/Psychiatric: Reports: no symptoms Subjective 74 YO F admitted with altered mental status and fever. Now UTI and sepsis. Cover for Int Med-Dr Vega. Refused V/Q scan Objective Last Vital Signs Date Time Temp Pulse Resp B/P (MAP) Pulse Ox O2 Delivery O2 Flow Rate FiO2 10/30/19 09:00 Room Air 10/30/19 08:54 144/80 10/30/19 08:53 79 10/30/19 08:00 98.1 17 96 10/29/19 19:48 21 Laboratory Tests Test 10/30/19 04:14 White Blood Count 5.3 K/UL (4.8-10.8) Red Blood Count 3.47 M/UL (4.20-5.40) L Hemoglobin 9.3 G/DL (12.0-16.0) L Hematocrit 30.5 % (37.0-47.0) L Mean Corpuscular Volume 88 FL (80-99) Mean Corpuscular Hemoglobin 26.8 PG (27.0-31.0) L Mean Corpuscular Hemoglobin Concent 30.4 G/DL (32.0-36.0) L Red Cell Distribution Width 15.3 % (11.6-14.8) H Platelet Count 395 K/UL (150-450) Mean Platelet Volume 8.4 FL (6.5-10.1) Neutrophils (%) (Auto) 61.2 % (45.0-75.0) Lymphocytes (%) (Auto) 21.7 % (20.0-45.0) Monocytes (%) (Auto) 12.8 % (1.0-10.0) H Eosinophils (%) (Auto) 2.9 % (0.0-3.0) Basophils (%) (Auto) 1.3 % (0.0-2.0) Prothrombin Time 13.9 SEC (9.30-11.50) H Prothromb Time International Ratio 1.3 (0.9-1.1) H Activated Partial Thromboplast Time 44 SEC (23-33) H Sodium Level 137 MMOL/L (136-145) Potassium Level 3.9 MMOL/L (3.5-5.1) Chloride Level 100 MMOL/L (98-107) Carbon Dioxide Level 29 MMOL/L (21-32) Anion Gap 9 mmol/L (5-15) Blood Urea Nitrogen 22 mg/dL (7-18) H Creatinine 2.3 MG/DL (0.55-1.30) H Estimat Glomerular Filtration Rate 25.1 mL/min (>60) Glucose Level 185 MG/DL (74-106) H Calcium Level 9.1 MG/DL (8.5-10.1) Phosphorus Level 4.5 MG/DL (2.5-4.9) Magnesium Level 2.0 MG/DL (1.8-2.4) Total Bilirubin 0.2 MG/DL (0.2-1.0) Direct Bilirubin 0.1 MG/DL (0.0-0.3) Aspartate Amino Transf (AST/SGOT) 20 U/L (15-37) Alanine Aminotransferase (ALT/SGPT) 8 U/L (12-78) L Alkaline Phosphatase 105 U/L (46-116) Total Protein 7.9 G/DL (6.4-8.2) Albumin 2.4 G/DL (3.4-5.0) L Intake and Output 10/29/19 10/30/19 19:00 07:00 Intake Total 360 ml Output Total 3700 ml 1500 ml Balance -3340 ml -1500 ml Intake Oral 360 ml Output Urine Total 3700 ml 1500 ml # Voids 1 # Bowel Movements 1 Objective PHYSICAL EXAMINATION: GENERAL: Patient is well-developed, well-nourished, slightly obese female, in no apparent distress. HEENT: Eyes, pupils are equal and responsive to light and accommodation. Extraocular movements are intact. NECK: Supple. No lymphadenopathy. CHEST: Lungs are clear to auscultation bilaterally without wheezes or rales. CARDIOVASCULAR: Regular rate. S1, S2 are normal without murmurs, rubs, or gallops. ABDOMEN: Soft, nontender, nondistended. Positive bowel sounds. No evidence of hepatosplenomegaly. Currently no rebound or guarding noted. EXTREMITIES: Negative for clubbing, cyanosis, or edema. RECTAL/GENITAL: Not performed. NEUROLOGIC: Cranial nerves II to XII grossly intact without focal deficits Assessment/Plan Assessment/Plan ASSESSMENT: This is a 74-year-old female. 1. Sepsis=E. Coli 2. UTI=E. Coli 3. Altered mental status. 4. Leukocytosis. 5. Elevated troponin. 6. Atrial fibrillation. 7. Diabetes type 2. 8. Hypertension. 9. Hyperthyroidism. 10. Coronary artery disease. 11. Renal failure. 12. Hypercholesterolemia. 13. Chronic lymphedema of the bilateral lower extremities. 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 Urinary Tract infection-E. Coli ABX=ceftriaxone, S/P meropenem. Infectious Disease=Dr. Mays. We will follow recommendations of Infectious Disease. 2. Sepsis=E. Coli Await culture and sensitivity result. Continue meropenem per ID. 3. Altered mental status. Resolved 4. Leukocytosis. Resolved 5. Elevated troponin. A Cardiology consultation has been obtained with Dr. Arun Barker. 6. Atrial fibrillation. Continue Coumadin as above. A Cardiology consultation has been obtained with Dr. Arun Barker. 7. Diabetes type 2. NovoLog sliding scale has been instituted. 8. Hypertension. Patient is currently hypotensive. Hold amlodipine as above. 9. Hyperthyroidism. Continue methimazole as above. 10. Coronary artery disease. Patient has elevated troponin. A Cardiology consultation has been obtained with Dr. Arun Barker. 11. Renal failure. A Nephrology consultation has been obtained with Dr. Pantera Wallace. 12. Hypercholesterolemia. Continue simvastatin as above. 13. Chronic lymphedema of bilateral lower extremities. 14. Will need CT abdomen/pelvis to R/O abscess-see ID note. 15. Await cardiac cath-see cardiology note 16. Refused V/Q scan to R/O pulmonary embolism; Continue heparin drip unitl coumadin therapeutic 17. Non invasive W/U vs cardiac cath 18. Discharge planning: [facility] Johny Blankenship MD Oct 30, 2019 12:28
--- NOTE | 2019-10-30 13:23 | Pulmonology Progress Note ---
Subjective ROS Limited/Unobtainable: No Interval Events: doing better Constitutional: Reports: no symptoms HEENT: Repors: no symptoms Gastrointestinal/Abdominal: Reports: other - pain in left lower abdominal quatdrant Musculoskeletal: Reports: no symptoms Allergies: Coded Allergies: CODEINE (Verified Allergy, Unknown, 10/10/19) Objective Last 24 Hour Vital Signs Date Time Temp Pulse Resp B/P (MAP) Pulse Ox O2 Delivery O2 Flow Rate FiO2 10/30/19 09:00 Room Air 10/30/19 08:54 144/80 10/30/19 08:54 144/80 10/30/19 08:53 79 144/80 10/30/19 08:00 98.1 79 17 144/80 (101) 96 10/30/19 08:00 71 10/30/19 04:00 90 10/30/19 04:00 99.3 82 18 150/66 (94) 97 10/30/19 00:00 64 10/30/19 00:00 99.2 81 18 146/60 (88) 98 10/29/19 21:00 Room Air 10/29/19 20:59 152/88 10/29/19 20:00 98.0 94 18 121/91 (101) 98 10/29/19 20:00 81 10/29/19 19:48 73 18 97 Room Air 21 10/29/19 16:00 98.1 70 18 156/75 (102) 97 10/29/19 15:49 87 Intake and Output 10/29/19 10/30/19 19:00 07:00 Intake Total 360 ml Output Total 3700 ml 1500 ml Balance -3340 ml -1500 ml Intake Oral 360 ml Output Urine Total 3700 ml 1500 ml # Voids 1 # Bowel Movements 1 General Appearance: WD/WN HEENT: normocephalic, atraumatic Respiratory: chest wall non-tender, lungs clear Breasts: no masses Cardiovascular: normal peripheral pulses Abdomen: normal bowel sounds, soft, non tender Genitourinary: normal external genitalia Skin: no rash 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9, Chloride Level 100, Carbon Dioxide Level 29, Anion Gap 9, Blood Urea Nitrogen 22H, Creatinine 2.3H, Estimat Glomerular Filtration Rate 25.1, Glucose Level 185H, Calcium Level 9.1, Phosphorus Level 4.5, Magnesium Level 2.0, Total Bilirubin 0.2, Direct Bilirubin 0.1, Aspartate Amino Transf (AST/SGOT) 20, Alanine Aminotransferase (ALT/SGPT) 8L, Alkaline Phosphatase 105, Total Protein 7.9, Albumin 2.4L 10/30/19 12:50: Activated Partial Thromboplast Time [Pending] Current Medications Medications (Trade) Dose Ordered Sig/Adria Route PRN Reason Start Time Stop Time Status Last Admin Dose Admin Acetaminophen (Tylenol) 650 mg Q4H PRN ORAL fever 10/11/19 08:30 11/09/19 08:29 10/28/19 08:34 Acetaminophen (Tylenol) 650 mg Q4H PRN RECTAL Temp >100.5 10/14/19 06:30 11/13/19 06:29 Albuterol/ Ipratropium (Albuterol/ Ipratropium) 3 ml Q4HRT PRN HHN sob 10/27/19 08:30 11/01/19 08:29 Allopurinol (allopurinoL) 300 mg DAILY ORAL 10/24/19 09:00 11/23/19 08:59 10/30/19 08:54 Amlodipine Besylate (Norvasc) 10 mg DAILY ORAL 10/21/19 09:00 11/20/19 08:59 10/30/19 08:53 Aspirin (Ecotrin) 81 mg DAILY ORAL 10/11/19 09:00 11/25/19 08:59 10/30/19 08:55 Atorvastatin Calcium (Lipitor) 40 mg BEDTIME ORAL 10/12/19 21:00 01/10/20 20:59 10/29/19 20:58 Clonidine HCl (Catapres Tab) 0.1 mg Q4H PRN ORAL Blood pressure over 160 systol 10/11/19 08:30 01/08/20 08:29 10/25/19 05:10 Dextrose (Dextrose 50%) 25 ml Q30M PRN IV Hypoglycemia 10/11/19 08:30 01/08/20 11:29 Dextrose (Dextrose 50%) 50 ml Q30M PRN IV Hypoglycemia 10/11/19 08:30 01/08/20 11:29 Docusate Sodium (Colace) 100 mg THREE TIMES A DAY ORAL 10/11/19 09:00 11/09/19 17:59 10/28/19 08:33 Furosemide (Lasix) 40 mg DAILY ORAL 10/27/19 09:00 11/26/19 08:59 10/30/19 08:54 Gabapentin (Neurontin) 200 mg THREE TIMES A DAY ORAL 10/16/19 13:00 11/09/19 12:59 10/30/19 12:51 Heparin Sodium/ Dextrose 500 ml @ 55.674 mls/ hr ADJUST PER PROTOCOL IV 10/30/19 06:45 11/25/19 19:44 10/30/19 11:32 Hydralazine HCl (Apresoline) 25 mg Q12HR ORAL 10/27/19 21:00 01/25/20 20:59 10/30/19 08:54 Insulin Aspart (NovoLOG) BEFORE MEALS AND HS SUBQ 10/11/19 11:30 01/08/20 11:29 10/29/19 21:00 Isosorbide Mononitrate (Imdur) 30 mg DAILY ORAL 10/13/19 09:00 11/12/19 08:59 10/30/19 08:54 Latanoprost (Xalatan) 1 drop BEDTIME BOTH EYES 10/17/19 21:00 11/16/19 20:59 10/29/19 21:01 Nitroglycerin (Ntg) 0.4 mg Q5M PRN SL Prn Chest Pain 10/11/19 08:30 11/09/19 11:29 Ondansetron HCl (Zofran) 4 mg Q6H PRN IVP Nausea & Vomiting 10/11/19 08:30 11/09/19 08:29 Pantoprazole (Protonix) 40 mg EVERY 12 HOURS ORAL 10/14/19 21:00 11/13/19 20:59 10/30/19 08:55 Polyethylene Glycol (Miralax) 17 gm DAILYPRN PRN ORAL Constipation 10/11/19 08:30 11/09/19 08:29 Tramadol HCl (Ultram) 50 mg Q6H PRN ORAL pain 7-10 10/28/19 11:30 11/04/19 11:29 10/28/19 12:06 Warfarin Sodium (Coumadin per pharmacy) 1 ea DAILY PRN MISC Per rx protocol 10/26/19 10:15 11/25/19 10:14 Assessment/Plan Problems: (1) Sepsis (2) Peripheral edema (3) Anasarca (4) NSTEMI (non-ST elevated myocardial infarction) (5) Renal failure (ARF), acute on chronic (6) Pyelonephritis (7) Atrial fibrillation with rapid ventricular response (8) Chronic atrial fibrillation (9) Limited mobility (10) Anemia (11) Diabetes mellitus (12) Morbid obesity Assessment/Plan on oral lasix, bun/creatinine stable off abx. wbc wnl, no feveres on Heparin drip and Coumadin, INR 1.3 today asymptomatic electrolytes supplement sliding scale diabetic diet renal studies dvt prophylaxis. Bandar Brownlee MD Oct 30, 2019 13:23
--- NOTE | 2019-10-30 13:45 | NUR ---
NURSE NOTES: Heparin held for one hour per protocol. To resume at 1445, with adjusted rate.
--- NOTE | 2019-10-30 14:00 | NUR ---
P.T Weekly Progress Notes: Pt is being seen for skilled P.T services this past week. Pt tolerating tx well. C/o pain on the L inguinal are has diminished to from 3/10 to 0/10 with activities. Pt currently able to turn/roll using the bed rails MOD/MAX A x 2 , able to come up from supine to long sitting with MIN A A X 1 with mechanical bed assist and MOD/MAX A to bring BLE out and back to bed. Pt able to sit unsupported the EOB w/o support with foot stools to facilitate stability in sitting and to prevent pt from sliding out of bed as the has limited height adjustment. Limited progress due to limited therapeutic activities. Transfer training is not safe and feasible at this time due to pt still weak to stand , her body habitus and limited functionality of the bed i.e the lowest bed adjustment is too high for pt ( hip high ) that if upon attempt to stand, there's a risk that pt would possibly buckle and fall on the floor. However will continue with POC to prepare pt to the next level of care.
--- NOTE | 2019-10-30 15:00 | NUR ---
NURSE NOTES: Heparin restarted per protocol. PTT scheduled. Confirmed rate with KG with pharmacist.
[2019-10-30 16:00] VITALS: BP 130/89
[2019-10-30] MEDS ORDERED: Warfarin Sodium 5mg ORAL SCH (17:00)
--- NOTE | 2019-10-30 17:48 | Infectious Diseases Prog Note ---
Assessment/Plan Assessment/Plan Assessment: Severe Sepsis, SP Probable PNA- COVID neg x3- sp VEnturi mask 8L- now at RA- GGO seen on CT chest CHF exacerbation (R heart failure) -10/29 CXR: No change cardiomegaly. No acute alveolar disease -10/24 CXR: Cardiomegaly with slight increased prominence of the central pulmonary vasculature which may signal development of mild congestive changes. No overt alveolar edema/CHF. -10/22 SARS-COV2 PCR neg -10/20 CXR: Cardiomegaly. No acute disease. -10/13 CXR: Mild vascular congestion. Probable small left pleural effusion. -10/10 SARS-COV2 PCR neg -10/09 CXR: Mild interstitial congestion. 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 EARLY VIRAL PNEUMONITIS MAY PRESENT SIMILARLY. HIATAL HERNIA AND POSTOPERATIVE CHANGES OF THE STOMACH. GALLSTONES. ATROPHIC PANCREAS WITH SMALL CYST AT THE PANCREATIC TAIL. LEFT RENAL STONES. BILATERAL RENAL CYSTS. NO HYDRONEPHROSIS. DIVERTICULOSIS. SUPRAUMBILICAL FATTY VENTRAL HERNIA. ANASARCA. Targeted review of the left groin region shows no evidence of a hematoma and there is no hernia demonstrated. Mild generalized soft tissue induration noted involving the anterior pelvic wall and bilateral hip regions likely reflecting generalized anasarca. There is slight asymmetric thickening at the inferior margin of the left abdominal rectus muscle compared to the contralateral right. The thickening is isodense to the rest of the muscles so there does not appear to be an acute intramuscular hematoma. -10/17 v. duplex BLE: limited study, No DVT NSTEMI ?PE Acute encephalopathy; SP LG, Cr fluctuating -renal US: Negative for hydronephrosis. Possible nonobstructive left lower pole renal calculi. Incidental finding of bilateral renal parapelvic cysts. morbid obesity HTN Dm2 hx of UTI Afib on coumadin [place] resident ([facility]) Plan: -Continue to monitor off abx -10/22 SP Ceftriaxone #7 -10/16 SP Meropenem #7 -10/13 SP IV Vancomycin #5 -10/10 SP cefepime #2 -10/09 SP Meropenem x1 -f/u cx -monitor CBC/CMP, temperatures -COVID19 neg x3- ok to dc isolation -f/u repeat Bcx x2 -Cards, renal f/u Thank you for consulting [facility]. Will continue to follow along with you. Discussed with RN. Subjective Allergies: Coded Allergies: CODEINE (Verified Allergy, Unknown, 10/10/19) Subjective afebrile >48hrs at RA Objective Vital Signs Last 24 Hour Vital Signs Date Time Temp Pulse Resp B/P (MAP) Pulse Ox O2 Delivery O2 Flow Rate FiO2 10/30/19 16:00 76 10/30/19 12:00 97.9 70 18 129/70 (89) 96 10/30/19 12:00 73 10/30/19 09:00 Room Air 10/30/19 08:54 144/80 10/30/19 08:54 144/80 10/30/19 08:53 79 144/80 10/30/19 08:00 98.1 79 17 144/80 (101) 96 10/30/19 08:00 71 10/30/19 04:00 90 10/30/19 04:00 99.3 82 18 150/66 (94) 97 10/30/19 00:00 64 10/30/19 00:00 99.2 81 18 146/60 (88) 98 10/29/19 21:00 Room Air 10/29/19 20:59 152/88 10/29/19 20:00 98.0 94 18 121/91 (101) 98 10/29/19 20:00 81 10/29/19 19:48 73 18 97 Room Air 21 Height (Feet): 5 Height (Inches): 3.00 Weight (Pounds): 323 Objective GENERAL: Patient is well-developed, well-nourished, slightly obese female, in no apparent distress. HEENT: Eyes, pupils are equal and responsive to light and accommodation. Extraocular movements are intact. NECK: Supple. No lymphadenopathy. CHEST: Lungs are clear to auscultation bilaterally without wheezes or rales. CARDIOVASCULAR: Regular rate. S1, S2 are normal without murmurs, rubs, or gallops. ABDOMEN: Soft, nontender, nondistended. Positive bowel sounds. No evidence of hepatosplenomegaly. Currently no rebound or guarding noted. EXTREMITIES: Negative for clubbing, cyanosis, or edema. Laboratory Tests Test 10/30/19 04:14 10/30/19 12:50 White Blood Count 5.3 K/UL (4.8-10.8) Red Blood Count 3.47 M/UL (4.20-5.40) L Hemoglobin 9.3 G/DL (12.0-16.0) L Hematocrit 30.5 % (37.0-47.0) L Mean Corpuscular Volume 88 FL (80-99) Mean Corpuscular Hemoglobin 26.8 PG (27.0-31.0) L Mean Corpuscular Hemoglobin Concent 30.4 G/DL (32.0-36.0) L Red Cell Distribution Width 15.3 % (11.6-14.8) H Platelet Count 395 K/UL (150-450) Mean Platelet Volume 8.4 FL (6.5-10.1) Neutrophils (%) (Auto) 61.2 % (45.0-75.0) Lymphocytes (%) (Auto) 21.7 % (20.0-45.0) Monocytes (%) (Auto) 12.8 % (1.0-10.0) H Eosinophils (%) (Auto) 2.9 % (0.0-3.0) Basophils (%) (Auto) 1.3 % (0.0-2.0) Prothrombin Time 13.9 SEC (9.30-11.50) H Prothromb Time International Ratio 1.3 (0.9-1.1) H Activated Partial Thromboplast Time 44 SEC (23-33) H > 150 SEC (23-33) *H Sodium Level 137 MMOL/L (136-145) Potassium Level 3.9 MMOL/L (3.5-5.1) Chloride Level 100 MMOL/L (98-107) Carbon Dioxide Level 29 MMOL/L (21-32) Anion Gap 9 mmol/L (5-15) Blood Urea Nitrogen 22 mg/dL (7-18) H Creatinine 2.3 MG/DL (0.55-1.30) H Estimat Glomerular Filtration Rate 25.1 mL/min (>60) Glucose Level 185 MG/DL (74-106) H Calcium Level 9.1 MG/DL (8.5-10.1) Phosphorus Level 4.5 MG/DL (2.5-4.9) Magnesium Level 2.0 MG/DL (1.8-2.4) Total Bilirubin 0.2 MG/DL (0.2-1.0) Direct Bilirubin 0.1 MG/DL (0.0-0.3) Aspartate Amino Transf (AST/SGOT) 20 U/L (15-37) Alanine Aminotransferase (ALT/SGPT) 8 U/L (12-78) L Alkaline Phosphatase 105 U/L (46-116) Total Protein 7.9 G/DL (6.4-8.2) Albumin 2.4 G/DL (3.4-5.0) L Current Medications Medications (Trade) Dose Ordered Sig/Adria Route PRN Reason Start Time Stop Time Status Last Admin Dose Admin Acetaminophen (Tylenol) 650 mg Q4H PRN ORAL fever 10/11/19 08:30 11/09/19 08:29 10/28/19 08:34 Acetaminophen (Tylenol) 650 mg Q4H PRN RECTAL Temp >100.5 10/14/19 06:30 11/13/19 06:29 Albuterol/ Ipratropium (Albuterol/ Ipratropium) 3 ml Q4HRT PRN HHN sob 10/27/19 08:30 11/01/19 08:29 Allopurinol (allopurinoL) 300 mg DAILY ORAL 10/24/19 09:00 11/23/19 08:59 10/30/19 08:54 Amlodipine Besylate (Norvasc) 10 mg DAILY ORAL 10/21/19 09:00 11/20/19 08:59 10/30/19 08:53 Aspirin (Ecotrin) 81 mg DAILY ORAL 10/11/19 09:00 11/25/19 08:59 10/30/19 08:55 Atorvastatin Calcium (Lipitor) 40 mg BEDTIME ORAL 10/12/19 21:00 01/10/20 20:59 10/29/19 20:58 Clonidine HCl (Catapres Tab) 0.1 mg Q4H PRN ORAL Blood pressure over 160 systol 10/11/19 08:30 01/08/20 08:29 10/25/19 05:10 Dextrose (Dextrose 50%) 25 ml Q30M PRN IV Hypoglycemia 10/11/19 08:30 01/08/20 11:29 Dextrose (Dextrose 50%) 50 ml Q30M PRN IV Hypoglycemia 10/11/19 08:30 01/08/20 11:29 Docusate Sodium (Colace) 100 mg THREE TIMES A DAY ORAL 10/11/19 09:00 11/09/19 17:59 10/28/19 08:33 Furosemide (Lasix) 40 mg DAILY ORAL 10/27/19 09:00 11/26/19 08:59 10/30/19 08:54 Gabapentin (Neurontin) 200 mg THREE TIMES A DAY ORAL 10/16/19 13:00 11/09/19 12:59 10/30/19 17:18 Heparin Sodium/ Dextrose 500 ml @ 43.953 mls/ hr ADJUST PER PROTOCOL IV 10/30/19 14:45 11/29/19 14:44 10/30/19 15:07 Hydralazine HCl (Apresoline) 25 mg Q12HR ORAL 10/27/19 21:00 01/25/20 20:59 10/30/19 08:54 Insulin Aspart (NovoLOG) BEFORE MEALS AND HS SUBQ 10/11/19 11:30 01/08/20 11:29 10/30/19 17:22 Isosorbide Mononitrate (Imdur) 30 mg DAILY ORAL 10/13/19 09:00 11/12/19 08:59 10/30/19 08:54 Latanoprost (Xalatan) 1 drop BEDTIME BOTH EYES 10/17/19 21:00 11/16/19 20:59 10/29/19 21:01 Nitroglycerin (Ntg) 0.4 mg Q5M PRN SL Prn Chest Pain 10/11/19 08:30 11/09/19 11:29 Ondansetron HCl (Zofran) 4 mg Q6H PRN IVP Nausea & Vomiting 10/11/19 08:30 11/09/19 08:29 Pantoprazole (Protonix) 40 mg EVERY 12 HOURS ORAL 10/14/19 21:00 11/13/19 20:59 10/30/19 08:55 Polyethylene Glycol (Miralax) 17 gm DAILYPRN PRN ORAL Constipation 10/11/19 08:30 11/09/19 08:29 Tramadol HCl (Ultram) 50 mg Q6H PRN ORAL pain 7-10 10/28/19 11:30 11/04/19 11:29 10/28/19 12:06 Warfarin Sodium (Coumadin per pharmacy) 1 ea DAILY PRN MISC Per rx protocol 10/26/19 10:15 11/25/19 10:14 Warfarin Sodium (Coumadin) 10 mg COUMADIN ORAL 10/30/19 17:00 10/30/19 18:00 10/30/19 17:18 Hannah Mays M.D. Oct 30, 2019 17:48
--- NOTE | 2019-10-30 18:05 | NUR ---
NURSE NOTES: Pt. AOx4. In RA. Heparin held for an hour this shift due to elevated PTT. Restarted Heparin with adjusted rate per protocol, timed PTT draw to be done per order. Bilateral wrist edema prominent, L hand swelling away from IV site. Pt. reluctant to have another IV insertion. Refused DC FC until discharge date due to Lasix and increased UO. Teaching done.
--- NOTE | 2019-10-30 18:58 | Cardiology Progress Note ---
Assessment/Plan Assessment/Plan 1. Permanent atrial fibrillation, on anticoagulation. 2. Toxic-metabolic encephalopathy. 3. Urinary tract infection, question pyelonephritis. 4. Diabetes mellitus. 5. Hypertension history. 6. Morbid obesity. 7. Myocardial infarction. 8. Acute on chronic renal insufficiency. 9. Coagulopathy secondary to Coumadin. 10. Bacteremia gnr 11. Iron def 12 RV hypokinesis and enlargment 13. pain in the left groin 14. tania trop may be related to poulm embolism or cad venous duplex neg but tech difficult study for now remain on heparin for afib and possible PE bp seem ok on norvasc lwo grade fever echo repeated 10/21 lv function still good rv is mildly enlarged and hypo had ct i discussed with radiologist no evidence of hematoma noted on the ct on 10/21 i discussed with pt the result of the trop and my concern about the possibility of pe (for which she declined v/q) the possibility of underlying cad which will need to have coronary angiogram performed , she declined angiogram told me she had one done 2014 at [facility] was told normal , she understand that it was 5 years ago , but she still declines cardiac cath heparin / couamdin cross over on lasix 40mg dialy door captain was getting bid tele reviewed afib vr seem ok now off coreg since 10/22 pt has previously decided not to take doacs she said as had been controlled inr until recently , also doacs in overweigh pt may not be dose appropriately may be going to snf will need lovenox until inr therapeutic Subjective Cardiovascular: Denies: chest pain, lightheadedness, palpitations Respiratory: Denies: cough, shortness of breath Gastrointestinal/Abdominal: Denies: abdominal pain Genitourinary: Denies: burning Objective Last 24 Hour Vital Signs Date Time Temp Pulse Resp B/P (MAP) Pulse Ox O2 Delivery O2 Flow Rate FiO2 10/30/19 16:00 98.1 70 16 130/89 (103) 97 10/30/19 16:00 76 10/30/19 12:00 97.9 70 18 129/70 (89) 96 10/30/19 12:00 73 10/30/19 09:00 Room Air 10/30/19 08:54 144/80 10/30/19 08:54 144/80 10/30/19 08:53 79 144/80 10/30/19 08:00 98.1 79 17 144/80 (101) 96 10/30/19 08:00 71 10/30/19 04:00 90 10/30/19 04:00 99.3 82 18 150/66 (94) 97 10/30/19 00:00 64 10/30/19 00:00 99.2 81 18 146/60 (88) 98 10/29/19 21:00 Room Air 10/29/19 20:59 152/88 10/29/19 20:00 98.0 94 18 121/91 (101) 98 10/29/19 20:00 81 10/29/19 19:48 73 18 97 Room Air 21 General Appearance: no apparent distress, alert, obese Neck: no JVD Cardiovascular: normal rate Respiratory/Chest: lungs clear Abdomen: normal bowel sounds, non tender, soft Extremities: moderate edema Intake and Output 10/29/19 10/30/19 19:00 07:00 Intake Total 360 ml Output Total 3700 ml 1500 ml Balance -3340 ml -1500 ml Intake Oral 360 ml Output Urine Total 3700 ml 1500 ml # Voids 1 # Bowel Movements 1 Laboratory Tests Test 10/30/19 04:14 10/30/19 12:50 White Blood Count 5.3 K/UL (4.8-10.8) Red Blood Count 3.47 M/UL (4.20-5.40) L Hemoglobin 9.3 G/DL (12.0-16.0) L Hematocrit 30.5 % (37.0-47.0) L Mean Corpuscular Volume 88 FL (80-99) Mean Corpuscular Hemoglobin 26.8 PG (27.0-31.0) L Mean Corpuscular Hemoglobin Concent 30.4 G/DL (32.0-36.0) L Red Cell Distribution Width 15.3 % (11.6-14.8) H Platelet Count 395 K/UL (150-450) Mean Platelet Volume 8.4 FL (6.5-10.1) Neutrophils (%) (Auto) 61.2 % (45.0-75.0) Lymphocytes (%) (Auto) 21.7 % (20.0-45.0) Monocytes (%) (Auto) 12.8 % (1.0-10.0) H Eosinophils (%) (Auto) 2.9 % (0.0-3.0) Basophils (%) (Auto) 1.3 % (0.0-2.0) Prothrombin Time 13.9 SEC (9.30-11.50) H Prothromb Time International Ratio 1.3 (0.9-1.1) H Activated Partial Thromboplast Time 44 SEC (23-33) H > 150 SEC (23-33) *H Sodium Level 137 MMOL/L (136-145) Potassium Level 3.9 MMOL/L (3.5-5.1) Chloride Level 100 MMOL/L (98-107) Carbon Dioxide Level 29 MMOL/L (21-32) Anion Gap 9 mmol/L (5-15) Blood Urea Nitrogen 22 mg/dL (7-18) H Creatinine 2.3 MG/DL (0.55-1.30) H Estimat Glomerular Filtration Rate 25.1 mL/min (>60) Glucose Level 185 MG/DL (74-106) H Calcium Level 9.1 MG/DL (8.5-10.1) Phosphorus Level 4.5 MG/DL (2.5-4.9) Magnesium Level 2.0 MG/DL (1.8-2.4) Total Bilirubin 0.2 MG/DL (0.2-1.0) Direct Bilirubin 0.1 MG/DL (0.0-0.3) Aspartate Amino Transf (AST/SGOT) 20 U/L (15-37) Alanine Aminotransferase (ALT/SGPT) 8 U/L (12-78) L Alkaline Phosphatase 105 U/L (46-116) Total Protein 7.9 G/DL (6.4-8.2) Albumin 2.4 G/DL (3.4-5.0) Arun Barros MD Oct 30, 2019 18:58
--- NOTE | 2019-10-30 19:40 | NUR ---
NURSE NOTES: Received pt from RUTHANN Biswas. pt observed in bed, watching TV, AO X4, denies pain at this time. pt is on room air, tolerating well; no s/sx of respiratory distress noted at this time. cardiac rehab nurse shows A-fib, with HR in the 80s. no acute cardiac distress noted. skin alterations noted. F/C is patent and intact, draining well to gravity. LH 22 G IV site is patent and intact, asymptomatic, and currently running Heparin drip at 15 units/kg/hr as per protocol. bed in lowest position and locked, siderails up X2, call light within reach. will continue to monitor.
[2019-10-30 20:00] VITALS: BP 134/78
[2019-10-30] MEDS: Atorvastatin 20mg tab ORAL SCH (21:07)
[2019-10-30] MEDS: Latanoprost 0.005% Opth 2.5ml Soln BOTH EYES SCH (21:08)
[2019-10-31] VITALS: BP 146/65
[2019-10-31 04:00] VITALS: BP 144/76
[2019-10-31 04:24] LABS: BASOPHILS % (AUTO) 1.4 % (0.0-2.0); EOSINOPHILS % (AUTO) 3.6 % (0.0-3.0); HEMATOCRIT 30.4 % (37.0-47.0); HEMOGLOBIN 9.2 G/DL (12.0-16.0); MEAN CORPUSCULAR VOLUME 87 FL (80-99); MONOCYTES % (AUTO) 14.7 % (1.0-10.0); NEUTROPHILS % (AUTO) 51.3 % (45.0-75.0); PLATELET COUNT 379 K/UL (150-450); RED BLOOD COUNT 3.48 M/UL (4.20-5.40); RED CELL DISTRIBUTION WIDTH 15.2 % (11.6-14.8); WHITE BLOOD COUNT 4.9 K/UL (4.8-10.8)
[2019-10-31 04:39] LABS: ANION GAP 7 mmol/L (5-15); BLOOD UREA NITROGEN 21 mg/dL (7-18); CALCIUM 8.8 MG/DL (8.5-10.1); CARBON DIOXIDE 29 MMOL/L (21-32); CHLORIDE 100 MMOL/L (98-107); CREATININE 2.2 MG/DL (0.55-1.30); POTASSIUM 3.9 MMOL/L (3.5-5.1); SODIUM 136 MMOL/L (136-145)
[2019-10-31 04:42] LABS: INR 1.4 (0.9-1.1)
--- NOTE | 2019-10-31 05:00 | NUR ---
NURSE NOTES: called and spoke with Lindsey, [facility] pharmacist, regarding pt's PTT level of 96 and Heparin drip. per pharmacist and as per protocol, decrease current rate by 2 units/kg/hr and schedule timed PTT after rate adjustment. will carry out.
[2019-10-31] MEDS: Heparin 25,000u/D5W 500ml 500 ML IV SCH ×3 (05:40→23:22)
[2019-10-31] MEDS: NovoLOG Insulin Flexpen SUBQ SCH ×4 (06:30→20:29)
--- NOTE | 2019-10-31 07:30 | NUR ---
NURSE NOTES: Received pt from RUTHANN Cortes, pt is awake and alert, pt is in RA, no SOB or acute respiratory distress noted. pt is on continues heart monitoring, pt has intact iv access LH 22G hep drip is running. Pt is eating breakfast by observation. No complain of pain at this moment. all needs attended, bed is locked and is in the lowest position, call light within easy reach. will continue to monitor.
--- NOTE | 2019-10-31 07:43 | NUR ---
HAND-OFF: Report given to RUTHANN Peña. endorsed plan of care.
[2019-10-31 08:00] VITALS: BP 150/80
--- NOTE | 2019-10-31 09:31 | Nephrology Progress Note ---
Assessment/Plan Problem List: (1) Renal failure (ARF), acute on chronic (2) Diabetes mellitus (3) Morbid obesity (4) Chronic atrial fibrillation (5) History of DVT (deep vein thrombosis) (6) Anemia (7) NSTEMI (non-ST elevated myocardial infarction) (8) Sepsis (9) Pyelonephritis Assessment Renal failure, most likely acute on chronic. Sepsis, leukocytosis, fever, suspected 2019 novel coronavirus infection. Encephalopathy most likely toxic metabolic UTI/pyelonephritis Anemia Atrial fibrillation chronic, with fast ventricular rate. Diabetes mellitus Morbid obesity/limited mobility History of DVT Elevated troponin I Lactic acidosis Plan October 30: Patient refused discontinuation of Anne until discharge. Serum creatinine slightly lower and stable. Continue per consultants. October 29: Discussed with RN. Will discontinue Anne. Serum creatinine stable. Continue per consultants. October 28: Serum creatinine down to 2.3. Magnesium low. IV magnesium ordered. Continue per consultants. October 27: Serum creatinine up to 2.4. Otherwise stable. Continue per consultants. Hemoglobin down to 8.9 today. October 26: Serum creatinine lowered to 2.2. Clinically appears to be stable. Continue per consultants. October 25: Serum creatinine 2.5 stable. Chest x-ray reviewed. Mild CHF present. Will restart Lasix and adjust dose as needed . October 24: Serum creatinine rising. Patient has been on IV Lasix since October 22. Will hold IV Lasix, and check chest x-ray for evidence of CHF. Continue to monitor renal parameters. October 23: Status quo. Serum creatinine stable. Mag supplement IV given. Remains anemic hemoglobin stable. Full code. October 22: No chemistry panel done today. Status quo. Remains full code. Medication list reviewed. October 21: Labs reviewed. Serum creatinine stable. Patient remains full code. Continue per consultants. Urinalysis results from yesterday noted. Culture so far negative. October 20: Labs are reviewed. Creatinine 2.1. White blood cells within normal range. Blood pressure is reasonably controlled. Medication reviewed and adjusted. Coreg dose increased. UA and culture ordered. October 19: Lab reviewed. Creatinine lower. Will adjust blood pressure medication. Leukocytosis resolved. October 18: No can panel drawn today. Clinically stable. Will check labs in a.m. Continue per consultants. October 17: Serum creatinine stable lowering. Continues to improve. Full code. Continue per consultants. October 16: Serum creatinine lowering. White blood cell is lowering. Clinically improving. Continue per consultants. October 15: Serum creatinine lowered to 2.6. White blood cell count is also down to 17,000. Not much to add from renal standpoint of view. Continue per cardiology and per ID. October 14: Serum creatinine 2.8. No new changes. Continue per toddler nanny. Leukocytosis persists. Remains on meropenem. Continue per ID. October 13: Serum creatinine continues to lower. Troponin level also declining. Continue per cardiology management. Statins was restarted by cardiology. Continue to monitor renal parameters. October 12: Serum creatinine lowering. Troponin I is also declining. Continue per cardiology management. Will continue to follow-up renal parameters and CPK level. October 11: Statins stopped due to worsening LFTs. 1 dose of Plavix given. Imdur started. Serum creatinine stable. Continue per cardiology. Continue to monitor renal parameters and CPK. Monitor troponin I and CPK Aspirin, Coreg ,nitrate for elevated troponin Antibiotics Echocardiogram results noted Kidney ultrasound results pending Monitor urine output and renal parameters Keep the blood pressure and blood sugar in check Coumadin for DVT and atrial fibrillation IV Protonix Subjective ROS Limited/Unobtainable: No Constitutional: Reports: malaise Objective Objective Last 24 Hour Vital Signs Date Time Temp Pulse Resp B/P (MAP) Pulse Ox O2 Delivery O2 Flow Rate FiO2 10/31/19 04:00 97.9 74 18 144/76 (98) 96 10/31/19 04:00 52 10/31/19 00:00 97.7 76 18 146/65 (92) 95 10/31/19 00:00 68 10/30/19 21:07 134/78 10/30/19 21:00 Room Air 10/30/19 20:00 78 10/30/19 20:00 98.8 81 20 134/78 (96) 94 10/30/19 19:38 75 18 96 Room Air 21 10/30/19 16:00 98.1 70 16 130/89 (103) 97 10/30/19 16:00 76 10/30/19 12:00 97.9 70 18 129/70 (89) 96 10/30/19 12:00 73 Intake and Output 10/30/19 10/31/19 19:00 07:00 Intake Total 585.764 ml Output Total 1000 ml 2000 ml Balance -1000 ml -1414.236 ml Intake Oral 240 ml IV Total 345.764 ml Output Urine Total 1000 ml 2000 ml Laboratory Tests 10/30/19 12:50: Activated Partial Thromboplast Time > 150*H 10/30/19 21:03: Activated Partial Thromboplast Time 78H 10/31/19 04:00: Activated Partial Thromboplast Time 96H, White Blood Count 4.9, Red Blood Count 3.48L, Hemoglobin 9.2L, Hematocrit 30.4L, Mean Corpuscular Volume 87, Mean Corpuscular Hemoglobin 26.5L, Mean Corpuscular Hemoglobin Concent 30.3L, Red Cell Distribution Width 15.2H, Platelet Count 379, Mean Platelet Volume 8.2, Neutrophils (%) (Auto) 51.3, Lymphocytes (%) (Auto) 29.0, Monocytes (%) (Auto) 14.7H, Eosinophils (%) (Auto) 3.6H, Basophils (%) (Auto) 1.4, Prothrombin Time 15.3H, Prothromb Time International Ratio 1.4H, Sodium Level 136, Potassium Level 3.9, Chloride Level 100, Carbon Dioxide Level 29, Anion Gap 7, Blood Urea Nitrogen 21H, Creatinine 2.2H, Estimat Glomerular Filtration Rate 26.4, Glucose Level 151H, Calcium Level 8.8 Height (Feet): 5 Height (Inches): 3.00 Weight (Pounds): 323 General Appearance: no apparent distress Cardiovascular: normal rate Respiratory/Chest: decreased breath sounds Abdomen: soft Objective No change Pantera Wallace MD Oct 31, 2019 09:31
[2019-10-31] MEDS: Imdur 30mg tab ORAL SCH (09:49)
[2019-10-31] MEDS: Aspirin EC 81mg tab ORAL SCH (09:49)
[2019-10-31] MEDS: Furosemide 40mg tab ORAL SCH (09:50)
[2019-10-31] MEDS: Docusate 100mg cap ORAL SCH ×3 (09:50→17:08)
[2019-10-31] MEDS: HydrALAZINE 25mg tab ORAL SCH ×2 (09:50→21:07)
--- NOTE | 2019-10-31 11:41 | Pulmonology Progress Note ---
Subjective ROS Limited/Unobtainable: No Interval Events: doing better Constitutional: Reports: no symptoms HEENT: Repors: no symptoms Gastrointestinal/Abdominal: Reports: other - pain in left lower abdominal quatdrant Musculoskeletal: Reports: no symptoms Allergies: Coded Allergies: CODEINE (Verified Allergy, Unknown, 10/10/19) Objective Last 24 Hour Vital Signs Date Time Temp Pulse Resp B/P (MAP) Pulse Ox O2 Delivery O2 Flow Rate FiO2 10/31/19 09:50 150/80 10/31/19 09:50 77 150/80 10/31/19 09:49 150/80 10/31/19 09:00 Room Air 10/31/19 08:00 98.8 77 20 150/80 (103) 98 10/31/19 07:40 91 10/31/19 04:00 97.9 74 18 144/76 (98) 96 10/31/19 04:00 52 10/31/19 00:00 97.7 76 18 146/65 (92) 95 10/31/19 00:00 68 10/30/19 21:07 134/78 10/30/19 21:00 Room Air 10/30/19 20:00 78 10/30/19 20:00 98.8 81 20 134/78 (96) 94 10/30/19 19:38 75 18 96 Room Air 21 10/30/19 16:00 98.1 70 16 130/89 (103) 97 10/30/19 16:00 76 10/30/19 12:00 97.9 70 18 129/70 (89) 96 10/30/19 12:00 73 Intake and Output 10/30/19 10/31/19 19:00 07:00 Intake Total 585.764 ml Output Total 1000 ml 2000 ml Balance -1000 ml -1414.236 ml Intake Oral 240 ml IV Total 345.764 ml Output Urine Total 1000 ml 2000 ml General Appearance: WD/WN HEENT: normocephalic, atraumatic Respiratory: chest wall non-tender, lungs clear Breasts: no masses Cardiovascular: normal peripheral pulses Abdomen: normal bowel sounds, soft, non tender Genitourinary: normal external genitalia Skin: no rash Neurologic: emergency specialist II-XII grossly normal Laboratory Tests 10/30/19 12:50: Activated Partial Thromboplast Time > 150*H 10/30/19 21:03: Activated Partial Thromboplast Time 78H 10/31/19 04:00: Activated Partial Thromboplast Time 96H, White Blood Count 4.9, Red Blood Count 3.48L, Hemoglobin 9.2L, Hematocrit 30.4L, Mean Corpuscular Volume 87, Mean Corpuscular Hemoglobin 26.5L, Mean Corpuscular Hemoglobin Concent 30.3L, Red Cell Distribution Width 15.2H, Platelet Count 379, Mean Platelet Volume 8.2, Neutrophils (%) (Auto) 51.3, Lymphocytes (%) (Auto) 29.0, Monocytes (%) (Auto) 14.7H, Eosinophils (%) (Auto) 3.6H, Basophils (%) (Auto) 1.4, Prothrombin Time 15.3H, Prothromb Time International Ratio 1.4H, Sodium Level 136, Potassium Level 3.9, Chloride Level 100, Carbon Dioxide Level 29, Anion Gap 7, Blood Urea Nitrogen 21H, Creatinine 2.2H, Estimat Glomerular Filtration Rate 26.4, Glucose Level 151H, Calcium Level 8.8 Current Medications Medications (Trade) Dose Ordered Sig/Adria Route PRN Reason Start Time Stop Time Status Last Admin Dose Admin Acetaminophen (Tylenol) 650 mg Q4H PRN ORAL fever 10/11/19 08:30 11/09/19 08:29 10/28/19 08:34 Acetaminophen (Tylenol) 650 mg Q4H PRN RECTAL Temp >100.5 10/14/19 06:30 11/13/19 06:29 Albuterol/ Ipratropium (Albuterol/ Ipratropium) 3 ml Q4HRT PRN HHN sob 10/27/19 08:30 11/01/19 08:29 Allopurinol (allopurinoL) 300 mg DAILY ORAL 10/24/19 09:00 11/23/19 08:59 10/31/19 09:50 Amlodipine Besylate (Norvasc) 10 mg DAILY ORAL 10/21/19 09:00 11/20/19 08:59 10/31/19 09:50 Aspirin (Ecotrin) 81 mg DAILY ORAL 10/11/19 09:00 11/25/19 08:59 10/31/19 09:49 Atorvastatin Calcium (Lipitor) 40 mg BEDTIME ORAL 10/12/19 21:00 01/10/20 20:59 10/30/19 21:07 Clonidine HCl (Catapres Tab) 0.1 mg Q4H PRN ORAL Blood pressure over 160 systol 10/11/19 08:30 01/08/20 08:29 10/25/19 05:10 Dextrose (Dextrose 50%) 25 ml Q30M PRN IV Hypoglycemia 10/11/19 08:30 01/08/20 11:29 Dextrose (Dextrose 50%) 50 ml Q30M PRN IV Hypoglycemia 10/11/19 08:30 01/08/20 11:29 Docusate Sodium (Colace) 100 mg THREE TIMES A DAY ORAL 10/11/19 09:00 11/09/19 17:59 10/31/19 09:50 Furosemide (Lasix) 40 mg DAILY ORAL 10/27/19 09:00 11/26/19 08:59 10/31/19 09:50 Gabapentin (Neurontin) 200 mg THREE TIMES A DAY ORAL 10/16/19 13:00 11/09/19 12:59 10/31/19 09:49 Heparin Sodium/ Dextrose 500 ml @ 38.093 mls/ hr ADJUST PER PROTOCOL IV 10/31/19 05:15 11/29/19 14:44 10/31/19 09:52 Hydralazine HCl (Apresoline) 25 mg Q12HR ORAL 10/27/19 21:00 01/25/20 20:59 10/31/19 09:50 Insulin Aspart (NovoLOG) BEFORE MEALS AND HS SUBQ 10/11/19 11:30 01/08/20 11:29 10/30/19 21:09 Isosorbide Mononitrate (Imdur) 30 mg DAILY ORAL 10/13/19 09:00 11/12/19 08:59 10/31/19 09:49 Latanoprost (Xalatan) 1 drop BEDTIME BOTH EYES 10/17/19 21:00 11/16/19 20:59 10/30/19 21:08 Nitroglycerin (Ntg) 0.4 mg Q5M PRN SL Prn Chest Pain 10/11/19 08:30 11/09/19 11:29 Ondansetron HCl (Zofran) 4 mg Q6H PRN IVP Nausea & Vomiting 10/11/19 08:30 11/09/19 08:29 Pantoprazole (Protonix) 40 mg EVERY 12 HOURS ORAL 10/14/19 21:00 11/13/19 20:59 10/31/19 09:49 Polyethylene Glycol (Miralax) 17 gm DAILYPRN PRN ORAL Constipation 10/11/19 08:30 11/09/19 08:29 Tramadol HCl (Ultram) 50 mg Q6H PRN ORAL pain 7-10 10/28/19 11:30 11/04/19 11:29 10/28/19 12:06 Warfarin Sodium (Coumadin per pharmacy) 1 ea DAILY PRN MISC Per rx protocol 10/26/19 10:15 11/25/19 10:14 Assessment/Plan Problems: (1) Sepsis (2) Peripheral edema (3) Anasarca (4) NSTEMI (non-ST elevated myocardial infarction) (5) Renal failure (ARF), acute on chronic (6) Pyelonephritis (7) Atrial fibrillation with rapid ventricular response (8) Chronic atrial fibrillation (9) Limited mobility (10) Anemia (11) Diabetes mellitus (12) Morbid obesity Assessment/Plan on oral lasix, bun/creatinine stable off abx. wbc wnl, no feveres on Heparin drip and Coumadin, INR 1.4 today asymptomatic electrolytes supplement sliding scale diabetic diet renal studies dvt prophylaxis. Bandar Brownlee MD Oct 31, 2019 11:41
[2019-10-31 12:00] VITALS: BP 158/74
--- NOTE | 2019-10-31 13:06 | NUR ---
NURSE NOTES: pharmacist Heather called and ordered to continue hep drip the same rate, noted and carried out. will continue to monitor.
--- NOTE | 2019-10-31 14:53 | Infectious Diseases Prog Note ---
Assessment/Plan Assessment/Plan Assessment: Severe Sepsis, SP Probable PNA- COVID neg x3- sp VEnturi mask 8L- now at RA- GGO seen on CT chest CHF exacerbation (R heart failure) -10/29 CXR: No change cardiomegaly. No acute alveolar disease -10/24 CXR: Cardiomegaly with slight increased prominence of the central pulmonary vasculature which may signal development of mild congestive changes. No overt alveolar edema/CHF. -10/22 SARS-COV2 PCR neg -10/20 CXR: Cardiomegaly. No acute disease. -10/13 CXR: Mild vascular congestion. Probable small left pleural effusion. -10/10 SARS-COV2 PCR neg -10/09 CXR: Mild interstitial congestion. 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 EARLY VIRAL PNEUMONITIS MAY PRESENT SIMILARLY. HIATAL HERNIA AND POSTOPERATIVE CHANGES OF THE STOMACH. GALLSTONES. ATROPHIC PANCREAS WITH SMALL CYST AT THE PANCREATIC TAIL. LEFT RENAL STONES. BILATERAL RENAL CYSTS. NO HYDRONEPHROSIS. DIVERTICULOSIS. SUPRAUMBILICAL FATTY VENTRAL HERNIA. ANASARCA. Targeted review of the left groin region shows no evidence of a hematoma and there is no hernia demonstrated. Mild generalized soft tissue induration noted involving the anterior pelvic wall and bilateral hip regions likely reflecting generalized anasarca. There is slight asymmetric thickening at the inferior margin of the left abdominal rectus muscle compared to the contralateral right. The thickening is isodense to the rest of the muscles so there does not appear to be an acute intramuscular hematoma. -10/17 v. duplex BLE: limited study, No DVT NSTEMI ?PE Acute encephalopathy; SP LG, Cr fluctuating -renal US: Negative for hydronephrosis. Possible nonobstructive left lower pole renal calculi. Incidental finding of bilateral renal parapelvic cysts. morbid obesity HTN Dm2 hx of UTI Afib on coumadin [place] resident ([facility]) Plan: -Continue to monitor off abx -10/22 SP Ceftriaxone #7 -10/16 SP Meropenem #7 -10/13 SP IV Vancomycin #5 -10/10 SP cefepime #2 -10/09 SP Meropenem x1 -f/u cx -monitor CBC/CMP, temperatures -COVID19 neg x3- ok to dc isolation -f/u repeat Bcx x2 -Cards, renal f/u Thank you for consulting [facility]. Will continue to follow along with you. Discussed with RN. Subjective Allergies: Coded Allergies: CODEINE (Verified Allergy, Unknown, 10/10/19) Subjective afebrile >72hrs at RA Objective Vital Signs Last 24 Hour Vital Signs Date Time Temp Pulse Resp B/P (MAP) Pulse Ox O2 Delivery O2 Flow Rate FiO2 10/31/19 12:00 98.4 84 20 158/74 (102) 100 10/31/19 11:55 77 20 96 Room Air 21 10/31/19 11:38 80 10/31/19 09:50 150/80 10/31/19 09:50 77 150/80 10/31/19 09:49 150/80 10/31/19 09:00 Room Air 10/31/19 08:00 98.8 77 20 150/80 (103) 98 10/31/19 07:40 91 10/31/19 04:00 97.9 74 18 144/76 (98) 96 10/31/19 04:00 52 10/31/19 00:00 97.7 76 18 146/65 (92) 95 10/31/19 00:00 68 10/30/19 21:07 134/78 10/30/19 21:00 Room Air 10/30/19 20:00 78 10/30/19 20:00 98.8 81 20 134/78 (96) 94 10/30/19 19:38 75 18 96 Room Air 21 10/30/19 16:00 98.1 70 16 130/89 (103) 97 10/30/19 16:00 76 Height (Feet): 5 Height (Inches): 3.00 Weight (Pounds): 323 Objective GENERAL: Patient is well-developed, well-nourished, slightly obese female, in no apparent distress. HEENT: Eyes, pupils are equal and responsive to light and accommodation. Extraocular movements are intact. NECK: Supple. No lymphadenopathy. CHEST: Lungs are clear to auscultation bilaterally without wheezes or rales. CARDIOVASCULAR: Regular rate. S1, S2 are normal without murmurs, rubs, or gallops. ABDOMEN: Soft, nontender, nondistended. Positive bowel sounds. No evidence of hepatosplenomegaly. Currently no rebound or guarding noted. EXTREMITIES: Negative for clubbing, cyanosis, or edema. Laboratory Tests Test 10/30/19 21:03 10/31/19 04:00 10/31/19 11:40 Activated Partial Thromboplast Time 78 SEC (23-33) H 96 SEC (23-33) H 72 SEC (23-33) H White Blood Count 4.9 K/UL (4.8-10.8) Red Blood Count 3.48 M/UL (4.20-5.40) L Hemoglobin 9.2 G/DL (12.0-16.0) L Hematocrit 30.4 % (37.0-47.0) L Mean Corpuscular Volume 87 FL (80-99) Mean Corpuscular Hemoglobin 26.5 PG (27.0-31.0) L Mean Corpuscular Hemoglobin Concent 30.3 G/DL (32.0-36.0) L Red Cell Distribution Width 15.2 % (11.6-14.8) H Platelet Count 379 K/UL (150-450) Mean Platelet Volume 8.2 FL (6.5-10.1) Neutrophils (%) (Auto) 51.3 % (45.0-75.0) Lymphocytes (%) (Auto) 29.0 % (20.0-45.0) Monocytes (%) (Auto) 14.7 % (1.0-10.0) H Eosinophils (%) (Auto) 3.6 % (0.0-3.0) H Basophils (%) (Auto) 1.4 % (0.0-2.0) Prothrombin Time 15.3 SEC (9.30-11.50) H Prothromb Time International Ratio 1.4 (0.9-1.1) H Sodium Level 136 MMOL/L (136-145) Potassium Level 3.9 MMOL/L (3.5-5.1) Chloride Level 100 MMOL/L (98-107) Carbon Dioxide Level 29 MMOL/L (21-32) Anion Gap 7 mmol/L (5-15) Blood Urea Nitrogen 21 mg/dL (7-18) H Creatinine 2.2 MG/DL (0.55-1.30) H Estimat Glomerular Filtration Rate 26.4 mL/min (>60) Glucose Level 151 MG/DL (74-106) H Calcium Level 8.8 MG/DL (8.5-10.1) Current Medications Medications (Trade) Dose Ordered Sig/Adria Route PRN Reason Start Time Stop Time Status Last Admin Dose Admin Acetaminophen (Tylenol) 650 mg Q4H PRN ORAL fever 10/11/19 08:30 11/09/19 08:29 10/28/19 08:34 Acetaminophen (Tylenol) 650 mg Q4H PRN RECTAL Temp >100.5 10/14/19 06:30 11/13/19 06:29 Albuterol/ Ipratropium (Albuterol/ Ipratropium) 3 ml Q4HRT PRN HHN sob 10/27/19 08:30 11/01/19 08:29 Allopurinol (allopurinoL) 300 mg DAILY ORAL 10/24/19 09:00 11/23/19 08:59 10/31/19 09:50 Amlodipine Besylate (Norvasc) 10 mg DAILY ORAL 10/21/19 09:00 11/20/19 08:59 10/31/19 09:50 Aspirin (Ecotrin) 81 mg DAILY ORAL 10/11/19 09:00 11/25/19 08:59 10/31/19 09:49 Atorvastatin Calcium (Lipitor) 40 mg BEDTIME ORAL 10/12/19 21:00 01/10/20 20:59 10/30/19 21:07 Clonidine HCl (Catapres Tab) 0.1 mg Q4H PRN ORAL Blood pressure over 160 systol 10/11/19 08:30 01/08/20 08:29 10/25/19 05:10 Dextrose (Dextrose 50%) 25 ml Q30M PRN IV Hypoglycemia 10/11/19 08:30 01/08/20 11:29 Dextrose (Dextrose 50%) 50 ml Q30M PRN IV Hypoglycemia 10/11/19 08:30 01/08/20 11:29 Docusate Sodium (Colace) 100 mg THREE TIMES A DAY ORAL 10/11/19 09:00 11/09/19 17:59 10/31/19 12:16 Furosemide (Lasix) 40 mg DAILY ORAL 10/27/19 09:00 11/26/19 08:59 10/31/19 09:50 Gabapentin (Neurontin) 200 mg THREE TIMES A DAY ORAL 10/16/19 13:00 11/09/19 12:59 10/31/19 12:16 Heparin Sodium/ Dextrose 500 ml @ 38.093 mls/ hr ADJUST PER PROTOCOL IV 10/31/19 05:15 11/29/19 14:44 10/31/19 09:52 Hydralazine HCl (Apresoline) 25 mg Q12HR ORAL 10/27/19 21:00 01/25/20 20:59 10/31/19 09:50 Insulin Aspart (NovoLOG) BEFORE MEALS AND HS SUBQ 10/11/19 11:30 01/08/20 11:29 10/30/19 21:09 Isosorbide Mononitrate (Imdur) 30 mg DAILY ORAL 10/13/19 09:00 11/12/19 08:59 10/31/19 09:49 Latanoprost (Xalatan) 1 drop BEDTIME BOTH EYES 10/17/19 21:00 11/16/19 20:59 10/30/19 21:08 Nitroglycerin (Ntg) 0.4 mg Q5M PRN SL Prn Chest Pain 10/11/19 08:30 11/09/19 11:29 Ondansetron HCl (Zofran) 4 mg Q6H PRN IVP Nausea & Vomiting 10/11/19 08:30 11/09/19 08:29 Pantoprazole (Protonix) 40 mg EVERY 12 HOURS ORAL 10/14/19 21:00 11/13/19 20:59 10/31/19 09:49 Polyethylene Glycol (Miralax) 17 gm DAILYPRN PRN ORAL Constipation 10/11/19 08:30 11/09/19 08:29 Tramadol HCl (Ultram) 50 mg Q6H PRN ORAL pain 7-10 10/28/19 11:30 11/04/19 11:29 10/28/19 12:06 Warfarin Sodium (Coumadin per pharmacy) 1 ea DAILY PRN MISC Per rx protocol 10/26/19 10:15 11/25/19 10:14 Warfarin Sodium (Coumadin) 2.5 mg COUMADIN ORAL 10/31/19 17:00 10/31/19 19:00 Warfarin Sodium (Coumadin) 10 mg ONCE ORAL 10/31/19 17:00 10/31/19 19:00 Hannah Mays M.D. Oct 31, 2019 14:53
[2019-10-31 16:00] VITALS: BP 132/57
--- NOTE | 2019-10-31 16:46 | Internal Med Progress Note ---
Subjective Date of Service: Oct 31, 2019 Physician Name PattieJohny Attending Physician Aleksandr Vega MD Current Medications Medications (Trade) Dose Ordered Sig/Adria Route PRN Reason Start Time Stop Time Status Last Admin Dose Admin Acetaminophen (Tylenol) 650 mg Q4H PRN ORAL fever 10/11/19 08:30 11/09/19 08:29 10/28/19 08:34 Acetaminophen (Tylenol) 650 mg Q4H PRN RECTAL Temp >100.5 10/14/19 06:30 11/13/19 06:29 Albuterol/ Ipratropium (Albuterol/ Ipratropium) 3 ml Q4HRT PRN HHN sob 10/27/19 08:30 11/01/19 08:29 Allopurinol (allopurinoL) 300 mg DAILY ORAL 10/24/19 09:00 11/23/19 08:59 10/31/19 09:50 Amlodipine Besylate (Norvasc) 10 mg DAILY ORAL 10/21/19 09:00 11/20/19 08:59 10/31/19 09:50 Aspirin (Ecotrin) 81 mg DAILY ORAL 10/11/19 09:00 11/25/19 08:59 10/31/19 09:49 Atorvastatin Calcium (Lipitor) 40 mg BEDTIME ORAL 10/12/19 21:00 01/10/20 20:59 10/30/19 21:07 Clonidine HCl (Catapres Tab) 0.1 mg Q4H PRN ORAL Blood pressure over 160 systol 10/11/19 08:30 01/08/20 08:29 10/25/19 05:10 Dextrose (Dextrose 50%) 25 ml Q30M PRN IV Hypoglycemia 10/11/19 08:30 01/08/20 11:29 Dextrose (Dextrose 50%) 50 ml Q30M PRN IV Hypoglycemia 10/11/19 08:30 01/08/20 11:29 Docusate Sodium (Colace) 100 mg THREE TIMES A DAY ORAL 10/11/19 09:00 11/09/19 17:59 10/31/19 12:16 Furosemide (Lasix) 40 mg DAILY ORAL 10/27/19 09:00 11/26/19 08:59 10/31/19 09:50 Gabapentin (Neurontin) 200 mg THREE TIMES A DAY ORAL 10/16/19 13:00 11/09/19 12:59 10/31/19 12:16 Heparin Sodium/ Dextrose 500 ml @ 38.093 mls/ hr ADJUST PER PROTOCOL IV 10/31/19 05:15 11/29/19 14:44 10/31/19 09:52 Hydralazine HCl (Apresoline) 25 mg Q12HR ORAL 10/27/19 21:00 01/25/20 20:59 10/31/19 09:50 Insulin Aspart (NovoLOG) BEFORE MEALS AND HS SUBQ 10/11/19 11:30 01/08/20 11:29 10/30/19 21:09 Isosorbide Mononitrate (Imdur) 30 mg DAILY ORAL 10/13/19 09:00 11/12/19 08:59 10/31/19 09:49 Latanoprost (Xalatan) 1 drop BEDTIME BOTH EYES 10/17/19 21:00 11/16/19 20:59 10/30/19 21:08 Nitroglycerin (Ntg) 0.4 mg Q5M PRN SL Prn Chest Pain 10/11/19 08:30 11/09/19 11:29 Ondansetron HCl (Zofran) 4 mg Q6H PRN IVP Nausea & Vomiting 10/11/19 08:30 11/09/19 08:29 Pantoprazole (Protonix) 40 mg EVERY 12 HOURS ORAL 10/14/19 21:00 11/13/19 20:59 10/31/19 09:49 Polyethylene Glycol (Miralax) 17 gm DAILYPRN PRN ORAL Constipation 10/11/19 08:30 11/09/19 08:29 Tramadol HCl (Ultram) 50 mg Q6H PRN ORAL pain 7-10 10/28/19 11:30 11/04/19 11:29 10/28/19 12:06 Warfarin Sodium (Coumadin per pharmacy) 1 ea DAILY PRN MISC Per rx protocol 10/26/19 10:15 11/25/19 10:14 Warfarin Sodium (Coumadin) 2.5 mg COUMADIN ORAL 10/31/19 17:00 10/31/19 19:00 Warfarin Sodium (Coumadin) 10 mg ONCE ORAL 10/31/19 17:00 10/31/19 19:00 Allergies: Coded Allergies: CODEINE (Verified Allergy, Unknown, 10/10/19) ROS Limited/Unobtainable: No Constitutional: Reports: no symptoms HEENT: Reports: no symptoms Cardiovascular: Reports: no symptoms Respiratory: Reports: no symptoms Gastrointestinal/Abdominal: Reports: no symptoms Genitourinary: Reports: no symptoms Neurologic/Psychiatric: Reports: no symptoms Subjective 74 YO F admitted with altered mental status and fever. Now UTI and sepsis. Cover for Int Med-Dr Vega. Refused V/Q scan Objective Last Vital Signs Date Time Temp Pulse Resp B/P (MAP) Pulse Ox O2 Delivery O2 Flow Rate FiO2 10/31/19 12:00 98.4 84 20 158/74 (102) 100 10/31/19 11:55 Room Air 21 Laboratory Tests Test 10/30/19 21:03 10/31/19 04:00 10/31/19 11:40 Activated Partial Thromboplast Time 78 SEC (23-33) H 96 SEC (23-33) H 72 SEC (23-33) H White Blood Count 4.9 K/UL (4.8-10.8) Red Blood Count 3.48 M/UL (4.20-5.40) L Hemoglobin 9.2 G/DL (12.0-16.0) L Hematocrit 30.4 % (37.0-47.0) L Mean Corpuscular Volume 87 FL (80-99) Mean Corpuscular Hemoglobin 26.5 PG (27.0-31.0) L Mean Corpuscular Hemoglobin Concent 30.3 G/DL (32.0-36.0) L Red Cell Distribution Width 15.2 % (11.6-14.8) H Platelet Count 379 K/UL (150-450) Mean Platelet Volume 8.2 FL (6.5-10.1) Neutrophils (%) (Auto) 51.3 % (45.0-75.0) Lymphocytes (%) (Auto) 29.0 % (20.0-45.0) Monocytes (%) (Auto) 14.7 % (1.0-10.0) H Eosinophils (%) (Auto) 3.6 % (0.0-3.0) H Basophils (%) (Auto) 1.4 % (0.0-2.0) Prothrombin Time 15.3 SEC (9.30-11.50) H Prothromb Time International Ratio 1.4 (0.9-1.1) H Sodium Level 136 MMOL/L (136-145) Potassium Level 3.9 MMOL/L (3.5-5.1) Chloride Level 100 MMOL/L (98-107) Carbon Dioxide Level 29 MMOL/L (21-32) Anion Gap 7 mmol/L (5-15) Blood Urea Nitrogen 21 mg/dL (7-18) H Creatinine 2.2 MG/DL (0.55-1.30) H Estimat Glomerular Filtration Rate 26.4 mL/min (>60) Glucose Level 151 MG/DL (74-106) H Calcium Level 8.8 MG/DL (8.5-10.1) Intake and Output 10/30/19 10/31/19 19:00 07:00 Intake Total 585.764 ml Output Total 1000 ml 2000 ml Balance -1000 ml -1414.236 ml Intake Oral 240 ml IV Total 345.764 ml Output Urine Total 1000 ml 2000 ml Objective PHYSICAL EXAMINATION: GENERAL: Patient is well-developed, well-nourished, slightly obese female, in no apparent distress. HEENT: Eyes, pupils are equal and responsive to light and accommodation. Extraocular movements are intact. NECK: Supple. No lymphadenopathy. CHEST: Lungs are clear to auscultation bilaterally without wheezes or rales. CARDIOVASCULAR: Regular rate. S1, S2 are normal without murmurs, rubs, or gallops. ABDOMEN: Soft, nontender, nondistended. Positive bowel sounds. No evidence of hepatosplenomegaly. Currently no rebound or guarding noted. EXTREMITIES: Negative for clubbing, cyanosis, or edema. RECTAL/GENITAL: Not performed. NEUROLOGIC: Cranial nerves II to XII grossly intact without focal deficits Assessment/Plan Assessment/Plan ASSESSMENT: This is a 74-year-old female. 1. Sepsis=E. Coli 2. UTI=E. Coli 3. Altered mental status. 4. Leukocytosis. 5. Elevated troponin. 6. Atrial fibrillation. 7. Diabetes type 2. 8. Hypertension. 9. Hyperthyroidism. 10. Coronary artery disease. 11. Renal failure. 12. Hypercholesterolemia. 13. Chronic lymphedema of the bilateral lower extremities. 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 Urinary Tract infection-E. Coli ABX=ceftriaxone, S/P meropenem. Infectious Disease=Dr. Mays. We will follow recommendations of Infectious Disease. 2. Sepsis=E. Coli Await culture and sensitivity result. Continue meropenem per ID. 3. Altered mental status. Resolved 4. Leukocytosis. Resolved 5. Elevated troponin. A Cardiology consultation has been obtained with Dr. Arun Barker. 6. Atrial fibrillation. Continue Coumadin as above. A Cardiology consultation has been obtained with Dr. Arun Barker. 7. Diabetes type 2. NovoLog sliding scale has been instituted. 8. Hypertension. Patient is currently hypotensive. Hold amlodipine as above. 9. Hyperthyroidism. Continue methimazole as above. 10. Coronary artery disease. Patient has elevated troponin. A Cardiology consultation has been obtained with Dr. Arun Barker. 11. Renal failure. A Nephrology consultation has been obtained with Dr. Pantera Wallace. 12. Hypercholesterolemia. Continue simvastatin as above. 13. Chronic lymphedema of bilateral lower extremities. 14. Will need CT abdomen/pelvis to R/O abscess-see ID note. 15. Await cardiac cath-see cardiology note 16. Refused V/Q scan to R/O pulmonary embolism; Continue heparin drip unitl coumadin therapeutic 17. Non invasive W/U vs cardiac cath 18. Discharge planning: [facility] Johny Blankenship MD Oct 31, 2019 16:46
[2019-10-31] MEDS ORDERED: Warfarin Sodium 5mg ORAL SCH (17:00)
[2019-10-31] MEDS ORDERED: Warfarin Sodium 2.5mg ORAL SCH (17:00)
--- NOTE | 2019-10-31 19:00 | Cardiology Progress Note ---
Assessment/Plan Assessment/Plan 1. Permanent atrial fibrillation, on anticoagulation. 2. Toxic-metabolic encephalopathy. 3. Urinary tract infection, question pyelonephritis. 4. Diabetes mellitus. 5. Hypertension history. 6. Morbid obesity. 7. Myocardial infarction. 8. Acute on chronic renal insufficiency. 9. Coagulopathy secondary to Coumadin. 10. Bacteremia gnr 11. Iron def 12 RV hypokinesis and enlargment 13. pain in the left groin 14. tania trop may be related to poulm embolism or cad venous duplex neg but tech difficult study for now remain on heparin for afib and possible PE bp seem ok on norvasc lwo grade fever echo repeated 10/21 lv function still good rv is mildly enlarged and hypo had ct i discussed with radiologist no evidence of hematoma noted on the ct on 10/21 i discussed with pt the result of the trop and my concern about the possibility of pe (for which she declined v/q) the possibility of underlying cad which will need to have coronary angiogram performed , she declined angiogram told me she had one done 2014 at [facility] was told normal , she understand that it was 5 years ago , but she still declines cardiac cath heparin / couamdin cross over on lasix 40mg 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 was getting bid tele reviewed afib vr seem ok now off coreg since 10/22 pt has previously decided not to take doacs she said as had been controlled inr until recently , also doacs in overweigh pt may not be dose appropriately may be going to snf will need lovenox until inr therapeutic d/w pharmacyist inr remain low despite 10 mg of couamdin 12.5 mg will be provided today Subjective Cardiovascular: Denies: chest pain, lightheadedness, palpitations Respiratory: Denies: cough, shortness of breath Gastrointestinal/Abdominal: Denies: abdominal pain Genitourinary: Denies: burning Objective Last 24 Hour Vital Signs Date Time Temp Pulse Resp B/P (MAP) Pulse Ox O2 Delivery O2 Flow Rate FiO2 10/31/19 17:07 101 10/31/19 16:00 98.8 83 20 132/57 (82) 98 10/31/19 12:00 98.4 84 20 158/74 (102) 100 10/31/19 11:55 77 20 96 Room Air 21 10/31/19 11:38 80 10/31/19 09:50 150/80 10/31/19 09:50 77 150/80 10/31/19 09:49 150/80 10/31/19 09:00 Room Air 10/31/19 08:00 98.8 77 20 150/80 (103) 98 10/31/19 07:40 91 10/31/19 04:00 97.9 74 18 144/76 (98) 96 10/31/19 04:00 52 10/31/19 00:00 97.7 76 18 146/65 (92) 95 10/31/19 00:00 68 10/30/19 21:07 134/78 10/30/19 21:00 Room Air 10/30/19 20:00 78 10/30/19 20:00 98.8 81 20 134/78 (96) 94 10/30/19 19:38 75 18 96 Room Air 21 General Appearance: no apparent distress, alert, obese Neck: supple Cardiovascular: normal rate Respiratory/Chest: lungs clear Abdomen: normal bowel sounds, non tender, soft Extremities: moderate edema Intake and Output 10/30/19 10/31/19 19:00 07:00 Intake Total 585.764 ml Output Total 1000 ml 2000 ml Balance -1000 ml -1414.236 ml Intake Oral 240 ml IV Total 345.764 ml Output Urine Total 1000 ml 2000 ml Laboratory Tests Test 10/30/19 21:03 10/31/19 04:00 10/31/19 11:40 Activated Partial Thromboplast Time 78 SEC (23-33) H 96 SEC (23-33) H 72 SEC (23-33) H White Blood Count 4.9 K/UL (4.8-10.8) Red Blood Count 3.48 M/UL (4.20-5.40) L Hemoglobin 9.2 G/DL (12.0-16.0) L Hematocrit 30.4 % (37.0-47.0) L Mean Corpuscular Volume 87 FL (80-99) Mean Corpuscular Hemoglobin 26.5 PG (27.0-31.0) L Mean Corpuscular Hemoglobin Concent 30.3 G/DL (32.0-36.0) L Red Cell Distribution Width 15.2 % (11.6-14.8) H Platelet Count 379 K/UL (150-450) Mean Platelet Volume 8.2 FL (6.5-10.1) Neutrophils (%) (Auto) 51.3 % (45.0-75.0) Lymphocytes (%) (Auto) 29.0 % (20.0-45.0) Monocytes (%) (Auto) 14.7 % (1.0-10.0) H Eosinophils (%) (Auto) 3.6 % (0.0-3.0) H Basophils (%) (Auto) 1.4 % (0.0-2.0) Prothrombin Time 15.3 SEC (9.30-11.50) H Prothromb Time International Ratio 1.4 (0.9-1.1) H Sodium Level 136 MMOL/L (136-145) Potassium Level 3.9 MMOL/L (3.5-5.1) Chloride Level 100 MMOL/L (98-107) Carbon Dioxide Level 29 MMOL/L (21-32) Anion Gap 7 mmol/L (5-15) Blood Urea Nitrogen 21 mg/dL (7-18) H Creatinine 2.2 MG/DL (0.55-1.30) H Estimat Glomerular Filtration Rate 26.4 mL/min (>60) Glucose Level 151 MG/DL (74-106) H Calcium Level 8.8 MG/DL (8.5-10.1) Arun Barker MD Oct 31, 2019 19:00
--- NOTE | 2019-10-31 19:26 | NUR ---
NURSE NOTES: Patient received from Casey RN. Patient in stable condition. Not in distress. A&O x4. Calm and comfortable. Anne patent and intact draining well to gravity. IV site patent on Left hand 22G with Heparin running @ 13Units/kg/hr with a rate of 38.093mls/hr. . Bed is low and locked. Call light and bedside table within reach. campus monitor in place. Patient is Afib. Will continue plan of care.
--- NOTE | 2019-10-31 19:33 | NUR ---
HAND-OFF: Report given to RN SUSAN. Pt is awake and stable, endorsed plan of care.
[2019-10-31 20:00] VITALS: BP 136/64
[2019-10-31] MEDS: Atorvastatin 20mg tab ORAL SCH (21:07)
[2019-10-31] MEDS: Latanoprost 0.005% Opth 2.5ml Soln BOTH EYES SCH (21:07)
[2019-11-01] VITALS: BP 144/73
[2019-11-01 04:00] VITALS: BP 141/77
[2019-11-01 04:31] LABS: ANION GAP 7 mmol/L (5-15); BLOOD UREA NITROGEN 23 mg/dL (7-18); CALCIUM 9.1 MG/DL (8.5-10.1); CARBON DIOXIDE 30 MMOL/L (21-32); CHLORIDE 100 MMOL/L (98-107); CREATININE 2.3 MG/DL (0.55-1.30); POTASSIUM 3.9 MMOL/L (3.5-5.1); SODIUM 137 MMOL/L (136-145)
[2019-11-01 04:36] LABS: INR 1.6 (0.9-1.1)
[2019-11-01 04:49] LABS: BASOPHILS % (AUTO) 1.5 % (0.0-2.0); EOSINOPHILS % (AUTO) 3.2 % (0.0-3.0); HEMATOCRIT 29.5 % (37.0-47.0); HEMOGLOBIN 9.1 G/DL (12.0-16.0); LYMPHOCYTES % (AUTO) 31.8 % (20.0-45.0); MEAN CORPUSCULAR VOLUME 87 FL (80-99); NEUTROPHILS % (AUTO) 50.5 % (45.0-75.0); PLATELET COUNT 344 K/UL (150-450); RED BLOOD COUNT 3.39 M/UL (4.20-5.40); RED CELL DISTRIBUTION WIDTH 14.6 % (11.6-14.8); WHITE BLOOD COUNT 4.9 K/UL (4.8-10.8)
[2019-11-01] MEDS: Heparin 25,000u/D5W 500ml 500 ML IV SCH ×2 (05:38→12:53)
[2019-11-01] MEDS: NovoLOG Insulin Flexpen SUBQ SCH ×3 (05:39→16:30)
--- NOTE | 2019-11-01 05:42 | NUR ---
NURSE NOTES: Pt's PTT results came back at 82. Per [employer] PharmacistCrystal, no change in rate. Current dose is 13 unit/kg/hr; rate: 38.093ml/hr. No bleeding or acute distress noted. Will monitor pt closely.
--- NOTE | 2019-11-01 07:25 | NUR ---
HAND-OFF: Report given to Aliyah BEAVERS. Patient in stable condition. Endorsed plan of care
[2019-11-01 08:00] VITALS: BP 118/73
--- NOTE | 2019-11-01 08:43 | NUR ---
NURSE NOTES: Received report from Mavis RN and Olvin RN. Pt A/Ox4. Lying comfortably in bed. No s/s of acute respiratory and cardiac distress. Currently on room air. SL on left hand 22g, asymptomatic, patent and intact. F/C draining out yellow urine. Side rails up and call light within reach. Will continue to monitor.
[2019-11-01] MEDS: Docusate 100mg cap ORAL SCH ×3 (09:33→17:46)
[2019-11-01] MEDS: HydrALAZINE 25mg tab ORAL SCH (09:34)
[2019-11-01] MEDS: Imdur 30mg tab ORAL SCH (09:34)
[2019-11-01] MEDS: Furosemide 40mg tab ORAL SCH (09:34)
[2019-11-01] MEDS: Aspirin EC 81mg tab ORAL SCH (09:34)
--- NOTE | 2019-11-01 11:51 | NUR ---
CASE MANAGEMENT:REVIEW 11/01/19 SI: BACTEREMIA. UTI. AMI COVID 19 NOT DETECTED 97.9 97 18 118/73 97% ON RA H/H-9.1/29.5 BUN+23 CR+2.3 PT+17.1 INR-1.6 APTT+82 IS: HEPARIN GTT COUMADIN 12.5 MG PO X1 HYDRALAZINE PO Q12 LASIX PO QD ALLOPURINOL PO QD NORVASC PO QD NEURONTIN PO TID PROTONIX : TELEMETRY STATUS DCP: FROM [facility] PLAN: DISCHARGE WHEN INR HAS REACHED GOAL OF 2.0
[2019-11-01 12:00] VITALS: BP 144/73
--- NOTE | 2019-11-01 12:40 | Pulmonology Progress Note ---
Subjective ROS Limited/Unobtainable: No Interval Events: doing better Constitutional: Reports: no symptoms HEENT: Repors: no symptoms Gastrointestinal/Abdominal: Reports: other - pain in left lower abdominal quatdrant Musculoskeletal: Reports: no symptoms Allergies: Coded Allergies: CODEINE (Verified Allergy, Unknown, 10/10/19) Objective Last 24 Hour Vital Signs Date Time Temp Pulse Resp B/P (MAP) Pulse Ox O2 Delivery O2 Flow Rate FiO2 11/01/19 12:00 98.6 79 19 144/73 (96) 92 11/01/19 09:34 118/73 11/01/19 09:34 118/73 11/01/19 09:00 Room Air 11/01/19 08:00 76 11/01/19 08:00 97.9 97 18 118/73 (88) 97 11/01/19 04:00 59 11/01/19 04:00 97.7 87 20 141/77 (98) 98 11/01/19 00:00 98.6 79 19 144/73 (96) 92 11/01/19 00:00 71 10/31/19 21:07 136/64 10/31/19 21:00 Room Air 10/31/19 20:00 99.5 65 19 136/64 (88) 95 10/31/19 20:00 101 10/31/19 17:07 101 10/31/19 16:00 98.8 83 20 132/57 (82) 98 Intake and Output 10/31/19 11/01/19 19:00 07:00 Intake Total 1157.116 ml 419.023 ml Output Total 2200 ml 2500 ml Balance -1042.884 ml -2080.977 ml Intake Oral 700 ml IV Total 457.116 ml 419.023 ml Output Urine Total 2200 ml 2500 ml # Voids 1 General Appearance: WD/WN HEENT: normocephalic, atraumatic Respiratory: chest wall non-tender, lungs clear Breasts: no masses Cardiovascular: normal peripheral pulses Abdomen: normal bowel sounds, soft, non tender Genitourinary: normal external genitalia Skin: no rash Neurologic: gunstock spray unit feeder II-XII grossly normal Laboratory Tests 10/31/19 16:23: POC Whole Blood Glucose 169H 10/31/19 20:24: POC Whole Blood Glucose 160H 11/01/19 04:08: White Blood Count 4.9, Red Blood Count 3.39L, Hemoglobin 9.1L, Hematocrit 29.5L , Mean Corpuscular Volume 87, Mean Corpuscular Hemoglobin 26.9L, Mean Corpuscular Hemoglobin Concent 30.8L, Red Cell Distribution Width 14.6, Platelet Count 344, Mean Platelet Volume 8.4, Neutrophils (%) (Auto) 50.5, Lymphocytes (%) (Auto) 31.8, Monocytes (%) (Auto) 13.0H, Eosinophils (%) (Auto) 3.2H, Basophils (%) (Auto) 1.5, Prothrombin Time 17.1H, Prothromb Time International Ratio 1.6H, Activated Partial Thromboplast Time 82H, Sodium Level 137, Potassium Level 3.9, Chloride Level 100, Carbon Dioxide Level 30, Anion Gap 7, Blood Urea Nitrogen 23H, Creatinine 2.3H, Estimat Glomerular Filtration Rate 25.1, Glucose Level 146H, Calcium Level 9.1 11/01/19 05:35: POC Whole Blood Glucose 123H 11/01/19 11:59: POC Whole Blood Glucose 184H Current Medications Medications (Trade) Dose Ordered Sig/Adria Route PRN Reason Start Time Stop Time Status Last Admin Dose Admin Acetaminophen (Tylenol) 650 mg Q4H PRN ORAL fever 10/11/19 08:30 11/09/19 08:29 10/28/19 08:34 Acetaminophen (Tylenol) 650 mg Q4H PRN RECTAL Temp >100.5 10/14/19 06:30 11/13/19 06:29 Allopurinol (allopurinoL) 300 mg DAILY ORAL 10/24/19 09:00 11/23/19 08:59 11/01/19 09:33 Amlodipine Besylate (Norvasc) 10 mg DAILY ORAL 10/21/19 09:00 11/20/19 08:59 10/31/19 09:50 Aspirin (Ecotrin) 81 mg DAILY ORAL 10/11/19 09:00 11/25/19 08:59 11/01/19 09:34 Atorvastatin Calcium (Lipitor) 40 mg BEDTIME ORAL 10/12/19 21:00 01/10/20 20:59 10/31/19 21:07 Clonidine HCl (Catapres Tab) 0.1 mg Q4H PRN ORAL Blood pressure over 160 systol 10/11/19 08:30 01/08/20 08:29 10/25/19 05:10 Dextrose (Dextrose 50%) 25 ml Q30M PRN IV Hypoglycemia 10/11/19 08:30 01/08/20 11:29 Dextrose (Dextrose 50%) 50 ml Q30M PRN IV Hypoglycemia 10/11/19 08:30 01/08/20 11:29 Docusate Sodium (Colace) 100 mg THREE TIMES A DAY ORAL 10/11/19 09:00 11/09/19 17:59 11/01/19 12:05 Furosemide (Lasix) 40 mg DAILY ORAL 10/27/19 09:00 11/26/19 08:59 11/01/19 09:34 Gabapentin (Neurontin) 200 mg THREE TIMES A DAY ORAL 10/16/19 13:00 11/09/19 12:59 11/01/19 12:05 Heparin Sodium/ Dextrose 500 ml @ 38.093 mls/ hr ADJUST PER PROTOCOL IV 10/31/19 05:15 11/29/19 14:44 11/01/19 05:38 Hydralazine HCl (Apresoline) 25 mg Q12HR ORAL 10/27/19 21:00 01/25/20 20:59 11/01/19 09:34 Insulin Aspart (NovoLOG) BEFORE MEALS AND HS SUBQ 10/11/19 11:30 01/08/20 11:29 11/01/19 12:05 Isosorbide Mononitrate (Imdur) 30 mg DAILY ORAL 10/13/19 09:00 11/12/19 08:59 11/01/19 09:34 Latanoprost (Xalatan) 1 drop BEDTIME BOTH EYES 10/17/19 21:00 11/16/19 20:59 10/31/19 21:07 Nitroglycerin (Ntg) 0.4 mg Q5M PRN SL Prn Chest Pain 10/11/19 08:30 11/09/19 11:29 Ondansetron HCl (Zofran) 4 mg Q6H PRN IVP Nausea & Vomiting 10/11/19 08:30 11/09/19 08:29 Pantoprazole (Protonix) 40 mg EVERY 12 HOURS ORAL 10/14/19 21:00 11/13/19 20:59 11/01/19 09:34 Polyethylene Glycol (Miralax) 17 gm DAILYPRN PRN ORAL Constipation 10/11/19 08:30 11/09/19 08:29 Tramadol HCl (Ultram) 50 mg Q6H PRN ORAL pain 7-10 10/28/19 11:30 11/04/19 11:29 10/28/19 12:06 Warfarin Sodium (Coumadin per pharmacy) 1 ea DAILY PRN MISC Per rx protocol 10/26/19 10:15 11/25/19 10:14 Warfarin Sodium (Coumadin) 12.5 mg COUMADIN ORAL 11/01/19 17:00 11/01/19 23:59 Assessment/Plan Problems: (1) Sepsis (2) Peripheral edema (3) Anasarca (4) NSTEMI (non-ST elevated myocardial infarction) (5) Renal failure (ARF), acute on chronic (6) Pyelonephritis (7) Atrial fibrillation with rapid ventricular response (8) Chronic atrial fibrillation (9) Limited mobility (10) Anemia (11) Diabetes mellitus (12) Morbid obesity Assessment/Plan on oral lasix, bun/creatinine stable off abx. wbc wnl, no feveres on Heparin drip and Coumadin, INR remain low despite 10 mg of couamdin, INR 1.6 today asymptomatic electrolytes supplement sliding scale diabetic diet renal studies dvt prophylaxis. Bandar Brownlee MD Nov 01, 2019 12:40
--- NOTE | 2019-11-01 12:50 | Nephrology Progress Note ---
Assessment/Plan Problem List: (1) Renal failure (ARF), acute on chronic (2) Diabetes mellitus (3) Morbid obesity (4) Chronic atrial fibrillation (5) History of DVT (deep vein thrombosis) (6) Anemia (7) NSTEMI (non-ST elevated myocardial infarction) (8) Sepsis (9) Pyelonephritis Assessment Renal failure, most likely acute on chronic. Sepsis, leukocytosis, fever, suspected 2019 novel coronavirus infection. Encephalopathy most likely toxic metabolic UTI/pyelonephritis Anemia Atrial fibrillation chronic, with fast ventricular rate. Diabetes mellitus Morbid obesity/limited mobility History of DVT Elevated troponin I Lactic acidosis Plan October 31: Stable renal parameters. Lab reviewed. Continue per consultants. October 30: Patient refused discontinuation of Anne until discharge. Serum creatinine slightly lower and stable. Continue per consultants. October 29: Discussed with RN. Will discontinue Anne. Serum creatinine stable. Continue per consultants. October 28: Serum creatinine down to 2.3. Magnesium low. IV magnesium ordered. Continue per consultants. October 27: Serum creatinine up to 2.4. Otherwise stable. Continue per consultants. Hemoglobin down to 8.9 today. October 26: Serum creatinine lowered to 2.2. Clinically appears to be stable. Continue per consultants. October 25: Serum creatinine 2.5 stable. Chest x-ray reviewed. Mild CHF present. Will restart Lasix and adjust dose as needed . October 24: Serum creatinine rising. Patient has been on IV Lasix since October 22. Will hold IV Lasix, and check chest x-ray for evidence of CHF. Continue to monitor renal parameters. October 23: Status quo. Serum creatinine stable. Mag supplement IV given. Remains anemic hemoglobin stable. Full code. October 22: No chemistry panel done today. Status quo. Remains full code. Medication list reviewed. October 21: Labs reviewed. Serum creatinine stable. Patient remains full code. Continue per consultants. Urinalysis results from yesterday noted. Culture so far negative. October 20: Labs are reviewed. Creatinine 2.1. White blood cells within normal range. Blood pressure is reasonably controlled. Medication reviewed and adjusted. Coreg dose increased. UA and culture ordered. October 19: Lab reviewed. Creatinine lower. Will adjust blood pressure medication. Leukocytosis resolved. October 18: No can panel drawn today. Clinically stable. Will check labs in a.m. Continue per consultants. October 17: Serum creatinine stable lowering. Continues to improve. Full code. Continue per consultants. October 16: Serum creatinine lowering. White blood cell is lowering. Clinically improving. Continue per consultants. October 15: Serum creatinine lowered to 2.6. White blood cell count is also down to 17,000. Not much to add from renal standpoint of view. Continue per cardiology and per ID. October 14: Serum creatinine 2.8. No new changes. Continue per consultant teacher. Leukocytosis persists. Remains on meropenem. Continue per ID. October 13: Serum creatinine continues to lower. Troponin level also declining. Continue per cardiology management. Statins was restarted by cardiology. Continue to monitor renal parameters. October 12: Serum creatinine lowering. Troponin I is also declining. Continue per cardiology management. Will continue to follow-up renal parameters and CPK level. October 11: Statins stopped due to worsening LFTs. 1 dose of Plavix given. Imdur started. Serum creatinine stable. Continue per cardiology. Continue to monitor renal parameters and CPK. Monitor troponin I and CPK Aspirin, Coreg ,nitrate for elevated troponin Antibiotics Echocardiogram results noted Kidney ultrasound results pending Monitor urine output and renal parameters Keep the blood pressure and blood sugar in check Coumadin for DVT and atrial fibrillation IV Protonix Subjective ROS Limited/Unobtainable: No Constitutional: Reports: malaise Objective Objective Last 24 Hour Vital Signs Date Time Temp Pulse Resp B/P (MAP) Pulse Ox O2 Delivery O2 Flow Rate FiO2 11/01/19 12:00 98.6 79 19 144/73 (96) 92 11/01/19 09:34 118/73 11/01/19 09:34 118/73 11/01/19 09:00 Room Air 11/01/19 08:00 76 11/01/19 08:00 97.9 97 18 118/73 (88) 97 11/01/19 04:00 59 11/01/19 04:00 97.7 87 20 141/77 (98) 98 11/01/19 00:00 98.6 79 19 144/73 (96) 92 11/01/19 00:00 71 10/31/19 21:07 136/64 10/31/19 21:00 Room Air 10/31/19 20:00 99.5 65 19 136/64 (88) 95 10/31/19 20:00 101 10/31/19 17:07 101 10/31/19 16:00 98.8 83 20 132/57 (82) 98 Intake and Output 10/31/19 11/01/19 19:00 07:00 Intake Total 1157.116 ml 419.023 ml Output Total 2200 ml 2500 ml Balance -1042.884 ml -2080.977 ml Intake Oral 700 ml IV Total 457.116 ml 419.023 ml Output Urine Total 2200 ml 2500 ml # Voids 1 Laboratory Tests 10/31/19 16:23: POC Whole Blood Glucose 169H 10/31/19 20:24: POC Whole Blood Glucose 160H 11/01/19 04:08: White Blood Count 4.9, Red Blood Count 3.39L, Hemoglobin 9.1L, Hematocrit 29.5L , Mean Corpuscular Volume 87, Mean Corpuscular Hemoglobin 26.9L, Mean Corpuscular Hemoglobin Concent 30.8L, Red Cell Distribution Width 14.6, Platelet Count 344, Mean Platelet Volume 8.4, Neutrophils (%) (Auto) 50.5, Lymphocytes (%) (Auto) 31.8, Monocytes (%) (Auto) 13.0H, Eosinophils (%) (Auto) 3.2H, Basophils (%) (Auto) 1.5, Prothrombin Time 17.1H, Prothromb Time International Ratio 1.6H, Activated Partial Thromboplast Time 82H, Sodium Level 137, Potassium Level 3.9, Chloride Level 100, Carbon Dioxide Level 30, Anion Gap 7, Blood Urea Nitrogen 23H, Creatinine 2.3H, Estimat Glomerular Filtration Rate 25.1, Glucose Level 146H, Calcium Level 9.1 11/01/19 05:35: POC Whole Blood Glucose 123H 11/01/19 11:59: POC Whole Blood Glucose 184H Height (Feet): 5 Height (Inches): 3.00 Weight (Pounds): 323 Cardiovascular: normal rate Respiratory/Chest: decreased breath sounds Abdomen: distended Objective No change Pantera Wallace MD Nov 01, 2019 12:50
--- NOTE | 2019-11-01 14:37 | NUR ---
DISCHARGE PLANNING PATIENT IS FROM [facility] PER MD PATIENT WILL DISCHARGE WHEN INR IS AT LEAST 2.0 CURRENTLY 1.6 Addendum: 11/01/19 at 1442 by KAREN SILVEIRA LVN LVN DATABASE SECURITY EXPERT,ASHLEY , WILL REFER PATIENT BACK TO [facility] IN ANTICIPATION OF WEEKEND DISCHARGE
--- NOTE | 2019-11-01 15:18 | NUR ---
*-*DISCHARGE PLANNING*-* PATIENT HAS BEEN ACCEPTED BACK TO: [facility] P: [phone] S/W CELE[place]INO, WILL ACCEPT PATIENT UPON DISCHARGE. RM# 109.A SNF
[2019-11-01 16:00] VITALS: BP 139/67
[2019-11-01] MEDS ORDERED: Warfarin Sod 10 MG, Warfarin Sod 2.5 MG ORAL SCH ×2 (17:00)
--- NOTE | 2019-11-01 17:02 | NUR ---
*-*DISCHARGE PLANNED*-* PATIENT HAS BEEN ACCEPTED AND WILL BE DISCHARGED BACK TO: [facility] P: [phone] FOR NURSE TO NURSE REPORT RM# 109.A [facility] TRANSPORTATION SET FOR 6PM S/W [place] S/W PATIENT COUSIN, ABY COHN, WHO IS IN AGREEMENT WITH DISCHARGE PLAN.
[2019-11-01] MEDS ORDERED: ALLOPURINOL300 M1 ORAL (17:47)
[2019-11-01] MEDS ORDERED: COLACE100 MG ORAL (17:47)
[2019-11-01] MEDS ORDERED: ACETAMINOPHEN325 M1 ORAL (17:48)
[2019-11-01] MEDS ORDERED: ASPIRIN-LOW81 MG ORAL (17:50)
[2019-11-01] MEDS ORDERED: WARFARIN SODIUM10 MG ORAL (17:50)
[2019-11-01] MEDS ORDERED: MIRALAX17 G2 ORAL (17:51)
[2019-11-01] MEDS ORDERED: TRAMADOL HCL50 MG ORAL (17:51)
[2019-11-01] MEDS ORDERED: ISOSORBIDE MONO20 MG PO (17:52)
[2019-11-01] MEDS ORDERED: NITRO0.4 SL (17:52)
[2019-11-01] MEDS ORDERED: NOVOLIN R100 UNIT/1 SUBQ (17:54)
--- NOTE | 2019-11-01 18:28 | Infectious Diseases Prog Note ---
Assessment/Plan Assessment: Severe Sepsis, SP Probable PNA- COVID neg x4- sp VEnturi mask 8L- now at [facility]- GGO seen on CT chest CHF exacerbation (R heart failure) -10/31 rapid COVID neg -10/29 CXR: No change cardiomegaly. No acute alveolar disease -10/24 CXR: Cardiomegaly with slight increased prominence of the central pulmonary vasculature which may signal development of mild congestive changes. No overt alveolar edema/CHF. -10/22 SARS-COV2 PCR neg -10/20 CXR: Cardiomegaly. No acute disease. -10/13 CXR: Mild vascular congestion. Probable small left pleural effusion. -10/10 SARS-COV2 PCR neg -10/09 CXR: Mild interstitial congestion. Cannot rule out small left pleural effusion SARS-COV2 PCR neg E.coli UTI c/w high grade bacteremia- -10/20 u/a wbc 5-10, nit neg, leuk +3; ucx Neg Bcx Neg -u/a wbc tnct, nit neg, leuk +3; ucx >100k E.coli (R Levauin; otherwise S) -10/09 Bcx 4/4 E.coli (R levaquin; otherwise S); 10/10 Bcx 1/4 E.coli; 10/13, BCx Neg x4 Fever; recurrent;SP- there is suspicion for probable PE which may be driver wheelchair of the intermittent fevers Leukocytosis; SP L groin pain -10/21 CT c/abd/p wo: SOME AIR TRAPPING IN BOTH LUNGS.SMALL PERIPHERAL GROUNDGLASS DENSITIES POSTERIOR RIGHT UPPER LOBE. EARLY VIRAL PNEUMONITIS MAY PRESENT SIMILARLY. HIATAL HERNIA AND POSTOPERATIVE CHANGES OF THE STOMACH. GALLSTONES. ATROPHIC PANCREAS WITH SMALL CYST AT THE PANCREATIC TAIL. LEFT RENAL STONES. BILATERAL RENAL CYSTS. NO HYDRONEPHROSIS. DIVERTICULOSIS. SUPRAUMBILICAL FATTY VENTRAL HERNIA. ANASARCA. Targeted review of the left groin region shows no evidence of a hematoma and there is no hernia demonstrated. Mild generalized soft tissue induration noted involving the anterior pelvic wall and bilateral hip regions likely reflecting generalized anasarca. There is slight asymmetric thickening at the inferior margin of the left abdominal rectus muscle compared to the contralateral right. The thickening is isodense to the rest of the muscles so there does not appear to be an acute intramuscular hematoma. -10/17 v. duplex BLE: limited study, No DVT NSTEMI ?PE Acute encephalopathy; SP LG, Cr fluctuating -renal US: Negative for hydronephrosis. Possible nonobstructive left lower pole renal calculi. Incidental finding of bilateral renal parapelvic cysts. morbid obesity HTN Dm2 hx of UTI Afib on coumadin [place] resident ([facility]) Plan: -Continue to monitor off abx -10/22 SP Ceftriaxone #7 -10/16 SP Meropenem #7 -10/13 SP IV Vancomycin #5 -10/10 SP cefepime #2 -10/09 SP Meropenem x1 -f/u cx -monitor CBC/CMP, temperatures -COVID19 neg x3- ok to dc isolation -f/u repeat Bcx x2 -Cards, renal f/u Thank you for consulting [facility]. Will continue to follow along with you. Discussed with RN. Subjective Allergies: Coded Allergies: CODEINE (Verified Allergy, Unknown, 10/10/19) afebrile at [facility] discharge planning Objective Last 24 Hour Vital Signs Date Time Temp Pulse Resp B/P (MAP) Pulse Ox O2 Delivery O2 Flow Rate FiO2 11/01/19 12:00 98.6 79 19 144/73 (96) 92 11/01/19 12:00 80 11/01/19 09:34 118/73 11/01/19 09:34 118/73 11/01/19 09:00 Room Air 11/01/19 08:00 76 11/01/19 08:00 97.9 97 18 118/73 (88) 97 11/01/19 04:00 59 11/01/19 04:00 97.7 87 20 141/77 (98) 98 11/01/19 00:00 98.6 79 19 144/73 (96) 92 11/01/19 00:00 71 10/31/19 21:07 136/64 10/31/19 21:00 Room Air 10/31/19 20:00 99.5 65 19 136/64 (88) 95 10/31/19 20:00 101 Height (Feet): 5 Height (Inches): 3.00 Weight (Pounds): 323 GENERAL: Patient is well-developed, well-nourished, slightly obese female, in no apparent distress. HEENT: Eyes, pupils are equal and responsive to light and accommodation. Extraocular movements are intact. NECK: Supple. No lymphadenopathy. CHEST: Lungs are clear to auscultation bilaterally without wheezes or rales. CARDIOVASCULAR: Regular rate. S1, S2 are normal without murmurs, rubs, or gallops. ABDOMEN: Soft, nontender, nondistended. Positive bowel sounds. No evidence of hepatosplenomegaly. Currently no rebound or guarding noted. EXTREMITIES: Negative for clubbing, cyanosis, or edema. Microbiology Date/Time Source Procedure Growth Status 11/01/19 16:10 Nasopharynx SARS-CoV-2 RdRp Gene Assay - Final Complete Laboratory Tests Test 10/31/19 20:24 11/01/19 04:08 11/01/19 05:35 11/01/19 11:59 POC Whole Blood Glucose 160 MG/DL (74-106) H 123 MG/DL (74-106) H 184 MG/DL (74-106) H White Blood Count 4.9 K/UL (4.8-10.8) Red Blood Count 3.39 M/UL (4.20-5.40) L Hemoglobin 9.1 G/DL (12.0-16.0) L Hematocrit 29.5 % (37.0-47.0) L Mean Corpuscular Volume 87 FL (80-99) Mean Corpuscular Hemoglobin 26.9 PG (27.0-31.0) L Mean Corpuscular Hemoglobin Concent 30.8 G/DL (32.0-36.0) L Red Cell Distribution Width 14.6 % (11.6-14.8) Platelet Count 344 K/UL (150-450) Mean Platelet Volume 8.4 FL (6.5-10.1) Neutrophils (%) (Auto) 50.5 % (45.0-75.0) Lymphocytes (%) (Auto) 31.8 % (20.0-45.0) Monocytes (%) (Auto) 13.0 % (1.0-10.0) H Eosinophils (%) (Auto) 3.2 % (0.0-3.0) H Basophils (%) (Auto) 1.5 % (0.0-2.0) Prothrombin Time 17.1 SEC (9.30-11.50) H Prothromb Time International Ratio 1.6 (0.9-1.1) H Activated Partial Thromboplast Time 82 SEC (23-33) H Sodium Level 137 MMOL/L (136-145) Potassium Level 3.9 MMOL/L (3.5-5.1) Chloride Level 100 MMOL/L (98-107) Carbon Dioxide Level 30 MMOL/L (21-32) Anion Gap 7 mmol/L (5-15) Blood Urea Nitrogen 23 mg/dL (7-18) H Creatinine 2.3 MG/DL (0.55-1.30) H Estimat Glomerular Filtration Rate 25.1 mL/min (>60) Glucose Level 146 MG/DL (74-106) H Calcium Level 9.1 MG/DL (8.5-10.1) Test 11/01/19 17:05 POC Whole Blood Glucose 136 MG/DL (74-106) H Current Medications Medications (Trade) Dose Ordered Sig/Adria Route PRN Reason Start Time Stop Time Status Last Admin Dose Admin Acetaminophen (Tylenol) 650 mg Q4H PRN ORAL fever 10/11/19 08:30 11/09/19 08:29 10/28/19 08:34 Acetaminophen (Tylenol) 650 mg Q4H PRN RECTAL Temp >100.5 10/14/19 06:30 11/13/19 06:29 Allopurinol (allopurinoL) 300 mg DAILY ORAL 10/24/19 09:00 11/23/19 08:59 11/01/19 09:33 Amlodipine Besylate (Norvasc) 10 mg DAILY ORAL 10/21/19 09:00 11/20/19 08:59 10/31/19 09:50 Aspirin (Ecotrin) 81 mg DAILY ORAL 10/11/19 09:00 11/25/19 08:59 11/01/19 09:34 Atorvastatin Calcium (Lipitor) 40 mg BEDTIME ORAL 10/12/19 21:00 01/10/20 20:59 10/31/19 21:07 Clonidine HCl (Catapres Tab) 0.1 mg Q4H PRN ORAL Blood pressure over 160 systol 10/11/19 08:30 01/08/20 08:29 10/25/19 05:10 Dextrose (Dextrose 50%) 25 ml Q30M PRN IV Hypoglycemia 10/11/19 08:30 01/08/20 11:29 Dextrose (Dextrose 50%) 50 ml Q30M PRN IV Hypoglycemia 10/11/19 08:30 01/08/20 11:29 Docusate Sodium (Colace) 100 mg THREE TIMES A DAY ORAL 10/11/19 09:00 11/09/19 17:59 11/01/19 17:46 Furosemide (Lasix) 40 mg DAILY ORAL 10/27/19 09:00 11/26/19 08:59 11/01/19 09:34 Gabapentin (Neurontin) 200 mg THREE TIMES A DAY ORAL 10/16/19 13:00 11/09/19 12:59 11/01/19 17:46 Heparin Sodium/ Dextrose 500 ml @ 38.093 mls/ hr ADJUST PER PROTOCOL IV 10/31/19 05:15 11/29/19 14:44 11/01/19 12:53 Hydralazine HCl (Apresoline) 25 mg Q12HR ORAL 10/27/19 21:00 01/25/20 20:59 11/01/19 09:34 Insulin Aspart (NovoLOG) BEFORE MEALS AND HS SUBQ 10/11/19 11:30 01/08/20 11:29 11/01/19 12:05 Isosorbide Mononitrate (Imdur) 30 mg DAILY ORAL 10/13/19 09:00 11/12/19 08:59 11/01/19 09:34 Latanoprost (Xalatan) 1 drop BEDTIME BOTH EYES 10/17/19 21:00 11/16/19 20:59 10/31/19 21:07 Nitroglycerin (Ntg) 0.4 mg Q5M PRN SL Prn Chest Pain 10/11/19 08:30 11/09/19 11:29 Ondansetron HCl (Zofran) 4 mg Q6H PRN IVP Nausea & Vomiting 10/11/19 08:30 11/09/19 08:29 Pantoprazole (Protonix) 40 mg EVERY 12 HOURS ORAL 10/14/19 21:00 11/13/19 20:59 11/01/19 09:34 Polyethylene Glycol (Miralax) 17 gm DAILYPRN PRN ORAL Constipation 10/11/19 08:30 11/09/19 08:29 Tramadol HCl (Ultram) 50 mg Q6H PRN ORAL pain 7-10 10/28/19 11:30 11/04/19 11:29 10/28/19 12:06 Warfarin Sodium (Coumadin per pharmacy) 1 ea DAILY PRN MISC Per rx protocol 10/26/19 10:15 11/25/19 10:14 Warfarin Sodium (Coumadin) 12.5 mg COUMADIN ORAL 11/01/19 17:00 11/01/19 23:59 11/01/19 17:46 Hannah Mays M.D. Nov 01, 2019 18:28
--- NOTE | 2019-11-01 18:36 | Internal Med Progress Note ---
Subjective Physician Name Aleksandr Vega Attending Physician Aleksandr Vega MD Current Medications Medications (Trade) Dose Ordered Sig/Adria Route PRN Reason Start Time Stop Time Status Last Admin Dose Admin Acetaminophen (Tylenol) 650 mg Q4H PRN ORAL fever 10/11/19 08:30 11/09/19 08:29 10/28/19 08:34 Acetaminophen (Tylenol) 650 mg Q4H PRN RECTAL Temp >100.5 10/14/19 06:30 11/13/19 06:29 Allopurinol (allopurinoL) 300 mg DAILY ORAL 10/24/19 09:00 11/23/19 08:59 11/01/19 09:33 Amlodipine Besylate (Norvasc) 10 mg DAILY ORAL 10/21/19 09:00 11/20/19 08:59 10/31/19 09:50 Aspirin (Ecotrin) 81 mg DAILY ORAL 10/11/19 09:00 11/25/19 08:59 11/01/19 09:34 Atorvastatin Calcium (Lipitor) 40 mg BEDTIME ORAL 10/12/19 21:00 01/10/20 20:59 10/31/19 21:07 Clonidine HCl (Catapres Tab) 0.1 mg Q4H PRN ORAL Blood pressure over 160 systol 10/11/19 08:30 01/08/20 08:29 10/25/19 05:10 Dextrose (Dextrose 50%) 25 ml Q30M PRN IV Hypoglycemia 10/11/19 08:30 01/08/20 11:29 Dextrose (Dextrose 50%) 50 ml Q30M PRN IV Hypoglycemia 10/11/19 08:30 01/08/20 11:29 Docusate Sodium (Colace) 100 mg THREE TIMES A DAY ORAL 10/11/19 09:00 11/09/19 17:59 11/01/19 17:46 Furosemide (Lasix) 40 mg DAILY ORAL 10/27/19 09:00 11/26/19 08:59 11/01/19 09:34 Gabapentin (Neurontin) 200 mg THREE TIMES A DAY ORAL 10/16/19 13:00 11/09/19 12:59 11/01/19 17:46 Heparin Sodium/ Dextrose 500 ml @ 38.093 mls/ hr ADJUST PER PROTOCOL IV 10/31/19 05:15 11/29/19 14:44 11/01/19 12:53 Hydralazine HCl (Apresoline) 25 mg Q12HR ORAL 10/27/19 21:00 01/25/20 20:59 11/01/19 09:34 Insulin Aspart (NovoLOG) BEFORE MEALS AND HS SUBQ 10/11/19 11:30 01/08/20 11:29 11/01/19 12:05 Isosorbide Mononitrate (Imdur) 30 mg DAILY ORAL 10/13/19 09:00 11/12/19 08:59 11/01/19 09:34 Latanoprost (Xalatan) 1 drop BEDTIME BOTH EYES 10/17/19 21:00 11/16/19 20:59 10/31/19 21:07 Nitroglycerin (Ntg) 0.4 mg Q5M PRN SL Prn Chest Pain 10/11/19 08:30 11/09/19 11:29 Ondansetron HCl (Zofran) 4 mg Q6H PRN IVP Nausea & Vomiting 10/11/19 08:30 11/09/19 08:29 Pantoprazole (Protonix) 40 mg EVERY 12 HOURS ORAL 10/14/19 21:00 11/13/19 20:59 11/01/19 09:34 Polyethylene Glycol (Miralax) 17 gm DAILYPRN PRN ORAL Constipation 10/11/19 08:30 11/09/19 08:29 Tramadol HCl (Ultram) 50 mg Q6H PRN ORAL pain 7-10 10/28/19 11:30 11/04/19 11:29 10/28/19 12:06 Warfarin Sodium (Coumadin per pharmacy) 1 ea DAILY PRN MISC Per rx protocol 10/26/19 10:15 11/25/19 10:14 Warfarin Sodium (Coumadin) 12.5 mg COUMADIN ORAL 11/01/19 17:00 11/01/19 23:59 11/01/19 17:46 Allergies: Coded Allergies: CODEINE (Verified Allergy, Unknown, 10/10/19) Subjective awake, alert, responsive, denies any chest pain or shortness of breath, denies any fever or chills, Denies lower abdominal pain. Feeling great. Objective Last Vital Signs Date Time Temp Pulse Resp B/P (MAP) Pulse Ox O2 Delivery O2 Flow Rate FiO2 11/01/19 12:00 98.6 79 19 144/73 (96) 92 11/01/19 09:00 Room Air 10/31/19 11:55 21 Laboratory Tests Test 10/31/19 20:24 11/01/19 04:08 11/01/19 05:35 11/01/19 11:59 POC Whole Blood Glucose 160 MG/DL (74-106) H 123 MG/DL (74-106) H 184 MG/DL (74-106) H White Blood Count 4.9 K/UL (4.8-10.8) Red Blood Count 3.39 M/UL (4.20-5.40) L Hemoglobin 9.1 G/DL (12.0-16.0) L Hematocrit 29.5 % (37.0-47.0) L Mean Corpuscular Volume 87 FL (80-99) Mean Corpuscular Hemoglobin 26.9 PG (27.0-31.0) L Mean Corpuscular Hemoglobin Concent 30.8 G/DL (32.0-36.0) L Red Cell Distribution Width 14.6 % (11.6-14.8) Platelet Count 344 K/UL (150-450) Mean Platelet Volume 8.4 FL (6.5-10.1) Neutrophils (%) (Auto) 50.5 % (45.0-75.0) Lymphocytes (%) (Auto) 31.8 % (20.0-45.0) Monocytes (%) (Auto) 13.0 % (1.0-10.0) H Eosinophils (%) (Auto) 3.2 % (0.0-3.0) H Basophils (%) (Auto) 1.5 % (0.0-2.0) Prothrombin Time 17.1 SEC (9.30-11.50) H Prothromb Time International Ratio 1.6 (0.9-1.1) H Activated Partial Thromboplast Time 82 SEC (23-33) H Sodium Level 137 MMOL/L (136-145) Potassium Level 3.9 MMOL/L (3.5-5.1) Chloride Level 100 MMOL/L (98-107) Carbon Dioxide Level 30 MMOL/L (21-32) Anion Gap 7 mmol/L (5-15) Blood Urea Nitrogen 23 mg/dL (7-18) H Creatinine 2.3 MG/DL (0.55-1.30) H Estimat Glomerular Filtration Rate 25.1 mL/min (>60) Glucose Level 146 MG/DL (74-106) H Calcium Level 9.1 MG/DL (8.5-10.1) Test 11/01/19 17:05 POC Whole Blood Glucose 136 MG/DL (74-106) H Microbiology Date/Time Source Procedure Growth Status 11/01/19 16:10 Nasopharynx SARS-CoV-2 RdRp Gene Assay - Final Complete Intake and Output 10/31/19 11/01/19 19:00 07:00 Intake Total 1157.116 ml 419.023 ml Output Total 2200 ml 2500 ml Balance -1042.884 ml -2080.977 ml Intake Oral 700 ml IV Total 457.116 ml 419.023 ml Output Urine Total 2200 ml 2500 ml # Voids 1 Objective General: No acute distress, awake and alert HEENT: NCAT, sclera anicteric, PERRL, EOMI. Neck: Supple, no significant jugular venous distention, Lungs: Fair inspiratory effort, decreased air at the bases no Wheeze or Rales. Heart: Regular rate and rhythm, normal S1/S2, no murmurs/gallops Abdomen: soft, not tender, nondistended. Normoactive bowel sounds, morbid obesity. / Rectal: Refused and deferred. Extremities: No Cyanosis , clubbing, or LE's edema. Neuro: A&O x 3, Able to move all extremities Skin: warm, no rash, Psych: Normal mood and affect Assessment/Plan Assessment/Plan ASSESSMENT: This is a 74-year-old female. 1. Sepsis / E. coli Bacteremia most likely due to UTI. 2. Probable pyelonephritis. 3. Altered mental status most likely due to toxic Metabolic Encephalopathy. 4. Leukocytosis. 5. Elevated troponin. 6. Permanent atrial fibrillation with RVR, on anticoagulation. 7. Diabetes type 2. 8. Hypertension. 9. Hyperthyroidism. 10. Coronary artery disease. 11. Renal failure. 12. Hypercholesterolemia. 13. Chronic lymphedema of the bilateral lower extremities. TREATMENT: 1. Fever/pyelonephritis. Infectious Disease consultation has been obtained with Dr. Mays. 2. Altered mental status / Toxic metabolic encephalopathy secondary to pyelonephritis/sepsis as above. 3. Leukocytosis. 4. Elevated troponin. A Cardiology consultation has been obtained with Dr. Arun Barker. 5. Atrial fibrillation. Continue Coumadin as above. A Cardiology consultation has been obtained with Dr. Arun Barker. 6. Diabetes type 2. NovoLog sliding scale has been instituted. 7. Hypertension. Patient is currently hypotensive. Hold amlodipine as above. 8. Hyperthyroidism. Continue methimazole as above. 9. Coronary artery disease. Patient has elevated troponin. A Cardiology consultation has been obtained with Dr. Arun Barker. 10. Renal failure. A Nephrology consultation has been obtained with Dr. Pantera Wallace. 11. Hypercholesterolemia. Continue simvastatin as above. 12. Chronic lymphedema of bilateral lower extremities. Off abx On Coumadin DC to [facility] Aleksandr Vega MD Nov 01, 2019 18:36
[2019-11-01] MEDS ORDERED: FUROSEMIDE40 MG ORAL (18:39)
[2019-11-01] MEDS ORDERED: ISOSORBIDE MONO30 M1 ORAL (18:42)
[2019-11-01] MEDS ORDERED: ALLOPURINOL100 M1 ORAL (18:42)
[2019-11-01] MEDS ORDERED: GLIPIZIDE10 MG PO (18:42)
--- NOTE | 2019-11-01 19:01 | NUR ---
NURSE NOTES: Gave report to nurse Terrance from [facility] who will be accepting patient when she gets transferred back. Removed SL from left hand. D/c'd heparin drip. Pt will be on coumadin when going back to SNF. ETA for strip picker from [facility] is 191.
[2019-11-01] MEDS ORDERED: Tubing IV Secondary IV ONE (19:35)
--- NOTE | 2019-11-03 16:49 | Discharge Summary ---
Discharge Summary Discharge Summary _ DATE OF ADMISSION: 10/10/2019 DATE OF DISCHARGE: 11/01/2019 DISCHARGED BY: Dr. Aleksandr Vega CONSULTANTS: Dr. Bandar Mays BRIEF HOSPITAL COURSE: Patient is a 74 -[place] female, who presented with chief complaint of altered mental status. Patient is a resident of [facility]. History was limited. Apparently patient was noted to have altered mental status on 10/09/2019. Patient was very lethargic and not responsive. She was noted to have fever. Patient was transported to [facility]. She has medical history significant for type 2 diabetes, hypertension, atrial fibrillation on anticoagulation, coronary artery disease, status post HI, congestive heart failure, hypothyroidism, obesity, chronic bilateral leg lymphedema, renal failure, hypercholesterolemia, and rheumatoid arthritis. Upon evaluation at ED, blood work showed WBC elevated to 23. Hemoglobin 10.5 and hematocrit 31. Platelet count 214. D-dimer elevated to 3.8. Sodium 137. Potassium 3.0. BUN 42 and creatinine elevated to 3.0. Lactic acid 3.2. Troponin was elevated to 4.435. CRP 17. Urinalysis revealed 3+ leukocyte esterase, too numerous to count urine WBC, 10-15 urine RBC, negative nitrite. Chest x-ray showed cardiomegaly with mild interstitial congestion. She was given broad-spectrum antibiotics and IV fluid. Patient was then admitted for evaluation of sepsis, acute toxic metabolic encephalopathy, suspected COVID-19 infection, NSTEMI, and renal failure. Patient was admitted to stepdown unit. She was started empirically on IV vancomycin and cefepime pending culture results. She was given aspirin, Coreg and nitrate for elevated troponin. She was continued on Coumadin for DVT prophylaxis and for atrial fibrillation. She was given IV Protonix for gastric protectant. Cardiac enzymes were monitored. He was continued on methimazole for hyperthyroidism. Blood glucose was monitored and was given NovoLog sliding scale. Urine and blood culture showed growth of gram-negative rods. Cefepime was switched to meropenem. SARS-CoV-2 PCR testing was negative. LFTs were worsening. Statins temporarily discontinued. Troponin was downtrending. EKG showed changes suggestive of old anterior infarct. Echocardiogram showed normal wall motion and EF. RV enlargement/hypokinesis patient possibly with type II HI in setting of sepsis. He was continued on dual antiplatelet therapy, beta-idalia and Imdur. He was started on heparin drip for anticoagulation. Patient monitored with them in atrial fibrillation with controlled rate. Venous duplex scan showed limited study but no visualized DVT. Patient refused VQ scan. Kidney function improved. Renal ultrasound was negative for hydronephrosis. Possible nonobstructive left lower pole renal calculi. Incidental finding of bilateral renal parapelvic cysts. Patient had recurrent high fever and bacteremia. Repeat blood culture still positive. CT of the chest, abdomen and pelvis without contrast showed air trapping in both lungs. Small peripheral groundglass densities posterior right upper lobe. Hiatal hernia and postoperative changes of the stomach. Gallstones. Left renal stones. Bilateral renal cyst. No hydronephrosis. Supraumbilical fatty ventral hernia. Left groin without any evidence of hematoma. No hernia. He was eventually taken off COVID-19 isolation as patient has been afebrile and COVID testing was negative x3. Repeat urine culture and blood culture did not isolate any growth. He was observed off antibiotics. Repeat echocardiogram on 10/22/2019 showed good LV function. Right ventricular mildly enlarged and hypokinetic. There was concern for possibility of PE, however patient declined VQ scan. Also discussed possibility of underlying coronary artery disease, for which patient will need to have coronary angiogram performed, however, she declined angiogram and stated that she had a normal angiogram done at [facility] on 2014 that was normal. Patient declined further cardiac intervention at this time. She was given diuretics. Review of monitored rhythm showed slower ventricular rate. Coreg was then discontinued. She complained of left hip pain. X-ray of the hip did not show any acute fracture. Patient continued to have on and off low-grade fever. Per ID, there is suspicion of probable PE which may be contributing to intermittent fever. She was continued off antibiotics. Cultures were negative. Patient was continued on heparin drip until therapeutic INR. INR still not therapeutic. Patient will need to be on Lovenox until therapeutic INR achieved. Patient was eventually discharged back to [facility]. FINAL DIAGNOSES: Severe E. coli sepsis E. coli UTI consistent with high-grade bacteremia Probable pneumonia with negative COVID testing CHF exacerbation with right heart failure NSTEMI type II Possible PE Acute toxic metabolic encephalopathy Acute kidney injury Acute on chronic renal failure Lactic acidosis Morbid obesity Hypertension Type 2 diabetes mellitus Permanent atrial fibrillation Coagulopathy secondary to Coumadin Right ventricular hypokinesis and enlargement Iron deficiency anemia Chronic lymphedema of bilateral lower extremities Hypercholesterolemia DISPOSITION: Patient was discharged back to SNF. DISCHARGE MEDICATIONS: Refer to Discharge Medication List. I have been assigned to complete a discharge summary on this account, I was not involved with the patient's management.--JASON Collins Jacqueline Robles NP Nov 03, 2019 16:49
== END 2019-11-01 19:36 | DRG 871 ==
LOC: EDBD 05:32 → EMR 05:50 → EDBEDREQ 07:08 → 2W 07:33 → EDBEDREQ 08:37 → 2E 10-11 08:19
DX: A41.51 Sepsis due to Escherichia coli [E. coli] (principal); G92 Toxic encephalopathy; I21.A1 Myocardial infarction type 2; I26.99 Other pulmonary embolism without acute cor pulmonale; J18.9 Pneumonia, unspecified organism; N17.9 Acute kidney failure, unspecified; N39.0 Urinary tract infection, site not specified; Z68.43 Body mass index [BMI] 50.0-59.9, adult; I48.21 Permanent atrial fibrillation; I13.0 Hypertensive heart and chronic kidney disease with heart failure and stage 1 through stage 4 chronic kidney disease, or unspecified chronic kidney disease; D68.9 Coagulation defect, unspecified; R65.20 Severe sepsis without septic shock; E11.22 Type 2 diabetes mellitus with diabetic chronic kidney disease; E66.09 Other obesity due to excess calories; D63.8 Anemia in other chronic diseases classified elsewhere; Z79.01 Long term (current) use of anticoagulants; N18.9 Chronic kidney disease, unspecified; I50.9 Heart failure, unspecified; I89.0 Lymphedema, not elsewhere classified; E05.90 Thyrotoxicosis, unspecified without thyrotoxic crisis or storm; E78.00 Pure hypercholesterolemia, unspecified; M06.9 Rheumatoid arthritis, unspecified; D50.9 Iron deficiency anemia, unspecified; Z20.828 Contact with and (suspected) exposure to other viral communicable diseases; R00.1 Bradycardia, unspecified; I25.10 Atherosclerotic heart disease of native coronary artery without angina pectoris
CPT/HCPCS: 36415; 36600; 71045; 71250; 73502; 74176; 76770; 80048; 80053; 80061; 80076; 80202; 81001; 81003; 82248; 82270; 82378; 82550; 82607; 82728; 82746; 82803; 82962; 82977; 83540; 83550; 83605; 83615; 83735; 83880; 84100; 84439; 84443; 84481; 84484; 84550; 85007; 85025; 85044; 85060; 85379; 85610; 85651; 85730; 86140; 87040; 87081; 87086; 87181; 89050; 93005; 93306; 93970; 94664; 96361; 96365; 99291; J1815; J7030; U0002

== ENCOUNTER 2020-04-29 08:54 | Inpatient (IN) | payer MEDICARE, MEDICAID ==
[~2020-04-29] VITALS: Ht 167.6 cm; Wt 158.8 kg
[2020-04-29] VITALS (8 sets, daily range): BP systolic 91–149; BP diastolic 47–83
[~2020-04-29 08:54] MED LIST: ACETAMINOPHEN325 M1 ORAL; ALLOPURINOL100 M1 ORAL; ALLOPURINOL300 M1 ORAL; AMLODIPINE BESY10 MG ORAL; ASPIRIN-LOW81 MG ORAL; BRIMONIDINE TART5 ML BOTH EYES; CLONIDINE0.1 MG GT; COLACE100 MG ORAL; COUMADIN2.5 MG ORAL; FUROSEMIDE40 MG ORAL; GABAPENTIN100 MG ORAL; GLIPIZIDE XL10 MG ORAL; GLIPIZIDE10 MG PO; ISOSORBIDE MONO20 MG PO; ISOSORBIDE MONO30 M1 ORAL; LATANOPROST 0.7.5 ML OP; METFORMIN500 MG/5 M PO; MIRALAX17 G2 ORAL; NITRO0.4 SL; NOVOLIN R100 UNIT/1 SUBQ; OMEPRAZOLE20 M3 ORAL; POTASSIUM CHLO10 ME2 PO; SIMVASTATIN10 MG ORAL; TRAMADOL HCL50 MG ORAL; WARFARIN SODIUM10 MG ORAL
[2020-04-29] MEDS ORDERED: Azithromycin 500 MG in NS 275 ML IVPB ONE (09:00)
[2020-04-29] MEDS ORDERED: cefTRIAXone 1 GM in NS 55 ML IVPB ONE (09:00)
[2020-04-29] MEDS ORDERED: dexAMETHasone 10mg/ml Inj IV ONE (09:00)
--- NOTE | 2020-04-29 09:30 | Emergency Room Report ---
History of Present Illness General Chief Complaint: Fever Source: Patient, EMS Present Illness HPI Patient is a 74-year-old -[place] female with past medical history of diabetes, hypertension, A. fib on anticoagulation, CAD status post CA, CHF, hypothyroidism, obesity, chronic bilateral leg lymphedema, renal failure, dyslipidemia, rheumatoid arthritis, morbid obesity, iron deficiency anemia, brought by ambulance from [facility] for shortness of breath. Patient was hypoxic on room air according to EMS. She was placed on 15 L nonrebreather facemask and now is saturating at 90%. History is limited secondary to patient's clinical condition. The patient's symptoms were gradual onset, severity was moderate, duration since unknown amount of time. No recent Covid testing on file.. Quality: Generally weak diabetes, hypertension, A. fib on Coumadin, CAD, previous CA, CHF, hypothyroidism, Past medical history: Chronic bilateral leg lymphedema, renal failure, dyslipidemia, rheumatoid arthritis, iron deficiency anemia, previous E. coli sepsis, previous bacteremia Past surgical history: Denies Smoking: Denies Alcohol use: Denies Drug use: Denies Review of systems: CONST: Positive fevers or chills, No night sweats PULMONARY: Positive productive cough, positive shortness of breath CARDIAC: No chest pain, No palpitations GI: No vomiting, No diarrhea , No melena_or_BRBPR : No dysuria, No hematuria, No discharge NEURO: No new_focal_weakness_or_numbness, No confusion, No vision changes 14 point Review of Systems is otherwise negative except per HPI Physical Exam: GENERAL: Awake_alert_ nontoxic, chronically ill-appearing, respiratory distress, Spo2 79% on RA -abnormal EYES: Pupils reactive. Conjunctiva clear. No appearing ENT: External nose and ear appear normal. Oropharynx clear. Head atraumatic. NECK: No thyromegaly. No midline tenderness. LUNGS: Increased respiratory effort. Tachypnea. Coarse breath sounds bilaterally. CARDIAC: Tachycardic rate and irregular rhythm. Normal radial pulses bi laterally. No significant pedal edema. ABDOMEN: Obese. Soft, nontender, and nondistended. No rebound/guarding. No hepatosplenomegaly. MSK: Poor muscle tone, chronic lymphedema. Extremities without asymmetric deformity or swelling. NEUROLOGIC: Awake. Does not follow commands for motor and sensory exam. No truncal ataxia. GCS 2-4-2, protecting airway, intact gag reflex. Withdraws to pain in extremities, groans and opens eyes to sternal rub. SKIN: Warm and dry. No cyanosis or urticaria present. - COORDINATION OF CARE Case was discussed with: Patient , Patient's Physician Any labs and imaging that were ordered were interpreted as part of the medical decision making: I reviewed patient's previous medical record. She was admitted to [place] on 10/10/2019 and discharged on 11/01/[address] Vega Her discharge diagnosis was severe E. coli sepsis, gram-negative bacteremia, pneumonia, CHF, NSTEMI, metabolic encephalopathy, LG on CKD, and probable PE. Medical Decision Making/Plan: Differential diagnosis includes sepsis / severe sepsis /septic shock, COVID-19, bacteremia, UTI, pneumonia , viral syndrome, gastroenteritis, emergent abdominal infection, among others. Vitals show hypoxia, fever, tachycardia. Patient has increased work of breathing. Found to be in A. fib RVR, however she has chronic A. fib and is on anticoagulation. RVR response is likely secondary to underlying infectious process. Will control the fever and give antibiotics as opposed to rate control. Patient abdomen is benign, no evidence of emergent abdominal condition. Labs show troponin elevation 0.6. EKG is nonischemic. No STEMI. Suspect demand ischemia secondary to underlying infectious etiology. Patient is furthermore found to have renal failure. Leukocytosis is 24. Covid swab was positive CXR shows multifocal pneumonia versus edema. Sepsis bundle initiated on arrival. Blood cultures, lactate drawn. Lactate was elevated , patient was not given 30 cc/kg IV fluids by bolus due to refusal as she has history of ESRD and CHF Empiric antibiotics were started. Patient will be admitted to the hospital for further care and evaluation. I spoke with Dr. Vega, and reviewed the patients presentation, workup, results, and treatment. They will admit the patient for further care and evaluation, and assume care of the patient at this time. - CRITICAL CARE STATEMENT - Critical care performed 75minutes Time is exclusive of separately billable procedures. Time includes: direct patient care, patient reassessment, coordination of patient care, review of patient's medical records, medical consultation, family consultation regarding treatment decisions and documentation of patient care. Organ systems at risk: Cardiac / Circulatory. 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 COVID-19 Screening: Negative COVID-19 COVID-19 Testing Source: 2 weeks ago Nursing Documentation-PMH Hx Cardiac Problems: Yes Hx Hypertension: Yes Hx Diabetes: Yes Hx Cancer: No Hx Gastrointestinal Problems: No Hx Neurological Problems: No Physical Exam Vital Signs Date Time Temp Pulse Resp B/P (MAP) Pulse Ox O2 Delivery O2 Flow Rate FiO2 04/29/20 08:51 100.2 126 20 149/83 (105) 98 Non-Rebreather 15.0 Sp02 EP Interpretation: reviewed, abnormal Medical Decision Making Diagnostic Impression: Primary Impression: Respiratory failure Additional Impressions: Hypoxia Chronic atrial fibrillation Diabetes mellitus History of DVT (deep vein thrombosis) Limited mobility Morbid obesity Peripheral edema Renal failure (ARF), acute on chronic Atrial fibrillation, rapid Sepsis NSTEMI (non-ST elevated myocardial infarction) Acute respiratory failure EKG Diagnostic Results Troponin ordered: Yes PATRICIA Hinds 12-lead EKG (interpreted by me) Time: 951 Indication: Rhythm analysis Tracing visualized and Interpreted by me. Rhythm: tachycardia Rate: 134 bpm QTc: 483 Morphology: No_significant_ST_elevations_or_depressions, No STEMI Impression: A. fib RVR, Q waves V1 through V6. Ectopy in inferior leads. Minimal ST depression in lead I and aVL Rhythm Strip Diag. Results Rhythm Strip Time: 09:58 EP Interpretation: yes Rate: 126 Rhythm: no PVC's, no ectopy - A. fib RVR Chest X-Ray Diagnostic Results Chest X-Ray Diagnostic Results : PATRICIA Hinds Chest X-Ray: Views: [ 1 ] view(s) Indication: Cough Findings: CM vasc congestion. Mediastinum normal. No infiltrate. Impression: CHF The X-ray(s) were independently viewed and interpreted contemporaneously Electronically signed by , Marcella Nieto DO Reevaluation Time: 12:00 Last Vital Signs Date Time Temp Pulse Resp B/P (MAP) Pulse Ox O2 Delivery O2 Flow Rate FiO2 04/29/20 08:51 100.2 126 20 149/83 (105) 98 Non-Rebreather 15.0 Status: improved Disposition: ADMITTED INPATIENT Admit Decision Time: 09:30 Condition: Stable Referrals: NON PHYSICIAN (PCP) Marcella Nieto D.O. Apr 29, 2020 09:30
[2020-04-29] MEDS ORDERED: ACETAMINOPHEN325 M1 ORAL (09:42)
[2020-04-29] MEDS ORDERED: ASPIRIN81 MG ORAL (09:43)
[2020-04-29] MEDS ORDERED: ASCORBIC ACID500 MG ORAL (09:43)
[2020-04-29] MEDS ORDERED: ACIDOPHILUS1 EAC7 PO (09:47)
[2020-04-29] MEDS ORDERED: NORCO 5-325 TA1 EAC1 ORAL (09:47)
[2020-04-29] MEDS ORDERED: GERI-LANTA LIQ355 ML PO (09:47)
[2020-04-29] MEDS ORDERED: ISORDIL30 MG PO (09:47)
[2020-04-29] MEDS ORDERED: GLIPIZIDE5 MG ORAL (09:47)
[2020-04-29] MEDS ORDERED: MULTIVITAMINS1 EA13 ORAL (09:54)
[2020-04-29] MEDS ORDERED: INSULIN REGULAR SQ (09:54)
[2020-04-29] MEDS ORDERED: SIMBRINZA 1%-0.28 ML OP (09:54)
[2020-04-29] MEDS ORDERED: METFORMIN HCL500 M1 ORAL (09:54)
[2020-04-29] MEDS ORDERED: NITRO0.4 SL (09:54)
[2020-04-29] MEDS ORDERED: SIMVASTATIN10 MG ORAL (09:54)
[2020-04-29 10:08] LABS: APPEARANCE,URINE CLOUDY; BILIRUBIN, URINE NEGATIVE (NEGATIVE); GLUCOSE, URINE (UA) NEGATIVE (NEGATIVE); HEMOGLOBIN 10.9 G/DL (12.0-16.0); KETONES,URINE 2+ (NEGATIVE); LEUKOCYTE ESTERASE ,URINE 3+ (NEGATIVE); MEAN CORPUSCULAR VOLUME 81 FL (80-99); NITRITE,URINE NEGATIVE (NEGATIVE); PH,URINE 5 (4.5-8.0); PLATELET COUNT 287 K/UL (150-450); PROTEIN,URINE 3+ (NEGATIVE); RED BLOOD COUNT 3.96 M/UL (4.20-5.40); RED CELL DISTRIBUTION WIDTH 17.3 % (11.6-14.8); UROBILINOGEN,URINE NORMAL MG/DL (0.0-1.0)
[2020-04-29 10:18] LABS: WHITE BLOOD COUNT 24.9 K/UL (4.8-10.8)
[2020-04-29 10:22] LABS: COLOR,URINE YELLOW
[2020-04-29 10:25] LABS: INR 4.5 (0.9-1.1)
[2020-04-29 10:26] LABS: ANION GAP 16 mmol/L (5-15); BLOOD UREA NITROGEN 41 mg/dL (7-18); CALCIUM 9.1 MG/DL (8.5-10.1); CARBON DIOXIDE 22 MMOL/L (21-32); CHLORIDE 96 MMOL/L (98-107); CREATININE 2.9 MG/DL (0.55-1.30); POTASSIUM 3.2 MMOL/L (3.5-5.1); SODIUM 134 MMOL/L (136-145)
[2020-04-29] MEDS ORDERED: Piperacillin/Tazobactam 3.375 GM in NS 110 ML IVPB ONE (10:30)
[2020-04-29 11:00] LABS: ALANINE AMINOTRANSFERASE 12 U/L (12-78); ALBUMIN 3.1 G/DL (3.4-5.0); ALBUMIN/GLOBULIN RATIO 0.5 (1.0-2.7); ALKALINE PHOSPHATASE 121 U/L (46-116); ASPARTATE AMINO TRANSFERASE 31 U/L (15-37); CREATINE KINASE 268 U/L (26-308); FERRITIN 202 NG/ML (8-388); LACTATE DEHYDROGENASE 274 U/L (81-234); PHOSPHORUS 1.7 MG/DL (2.5-4.9)
--- NOTE | 2020-04-29 11:27 | Diagnostic Imaging Report ---
Indication: Cough Technique: One view of the chest Comparison: 10/30/2019 Findings: The heart is enlarged. The lungs and pleural spaces are clear. The aorta is tortuous and ectatic. Impression: Cardiomegaly. No acute process
--- NOTE | 2020-04-29 13:54 | Pulmonolgy Critical Care Note ---
Critical Care - Asmt/Plan Problems: (1) Acute respiratory failure (2) Sepsis (3) Atrial fibrillation, rapid (4) Diabetes mellitus (5) History of DVT (deep vein thrombosis) Respiratory: monitor respiratory rate, adjust FIO2, CXR Cardiac: continue to monitor HR/BP Renal: F/U I&O, check electrolytes Infectious Disease: check cultures Gastrointestinal: continue feedings/current rate Endocrine: monitor blood sugar Hematologic: monitor H/H, transfuse if hgb<8.5 Neurologic: PRN Ativan, keep patient comfortable Time Spent (Minutes): 40 Notes Reviewed: sas clinical programmer, cardio Discussed with: nurses, medical case workermanager staffing - Objective Last 24 Hour Vital Signs Date Time Temp Pulse Resp B/P (MAP) Pulse Ox O2 Delivery O2 Flow Rate FiO2 04/29/20 13:01 99.1 96 25 91/50 100 Mechanical Ventilator 30 04/29/20 11:45 99.6 102 29 97/57 100 Bi-pap 4.0 30 04/29/20 11:16 99.6 04/29/20 11:04 30 04/29/20 10:57 128 21 108/47 99 Nasal Cannula 4.0 04/29/20 08:55 135 20 Nasal Cannula 4.0 04/29/20 08:55 100.2 134 20 149/83 98 Nasal Cannula 4.0 04/29/20 08:51 100.2 126 20 149/83 (105) 98 Non-Rebreather 15.0 Status: sedated Condition: critical HEENT: atraumatic Neck: full ROM Lungs: rales, rhonchi Heart: HR/BP stable, HR/BP unstable Micro: Microbiology Date/Time Source Procedure Growth Status 04/29/20 09:15 Rectum Received 04/29/20 09:10 Nasopharynx SARS-CoV-2 RdRp Gene Assay - Final Complete Critical Care - Subjective Condition: critical IV Access: PICC FI02: 30 CXR: Impression: Cardiomegaly. No acute process Labs: Laboratory Tests Test 04/29/20 09:10 04/29/20 10:17 04/29/20 10:50 White Blood Count 24.9 K/UL (4.8-10.8) *H Red Blood Count 3.96 M/UL (4.20-5.40) L Hemoglobin 10.9 G/DL (12.0-16.0) L Hematocrit 32.0 % (37.0-47.0) L Mean Corpuscular Volume 81 FL (80-99) Mean Corpuscular Hemoglobin 27.6 PG (27.0-31.0) Mean Corpuscular Hemoglobin Concent 34.1 G/DL (32.0-36.0) Red Cell Distribution Width 17.3 % (11.6-14.8) H Platelet Count 287 K/UL (150-450) Mean Platelet Volume 9.6 FL (6.5-10.1) Neutrophils (%) (Auto) % (45.0-75.0) Lymphocytes (%) (Auto) % (20.0-45.0) Monocytes (%) (Auto) % (1.0-10.0) Eosinophils (%) (Auto) % (0.0-3.0) Basophils (%) (Auto) % (0.0-2.0) Differential Total Cells Counted 100 Neutrophils % (Manual) 93 % (45-75) H Lymphocytes % (Manual) 2 % (20-45) L Monocytes % (Manual) 5 % (1-10) Eosinophils % (Manual) 0 % (0-3) Basophils % (Manual) 0 % (0-2) Band Neutrophils 0 % (0-8) Platelet Estimate Adequate Platelet Morphology Normal Hypochromasia 1+ Anisocytosis 1+ Prothrombin Time 44.7 SEC (9.30-11.50) H Prothromb Time International Ratio 4.5 (0.9-1.1) H Activated Partial Thromboplast Time 47 SEC (23-33) H D-Dimer 0.75 mg/L FEU (0.00-0.49) H Urine Color Yellow Urine Appearance Cloudy Urine pH 5 (4.5-8.0) Urine Specific Rice 1.015 (1.005-1.035) Urine Protein 3+ (NEGATIVE) H Urine Glucose (UA) Negative (NEGATIVE) Urine Ketones 2+ (NEGATIVE) H Urine Blood 4+ (NEGATIVE) H Urine Nitrite Negative (NEGATIVE) Urine Bilirubin Negative (NEGATIVE) Urine Urobilinogen Normal MG/DL (0.0-1.0) Urine Leukocyte Esterase 3+ (NEGATIVE) H Urine RBC 5-10 /HPF (0 - 2) H Urine WBC 40-60 /HPF (0 - 2) H Urine Squamous Epithelial Cells Few /LPF (NONE/OCC) Urine Bacteria Moderate /HPF (NONE) H Sodium Level 134 MMOL/L (136-145) L Potassium Level 3.2 MMOL/L (3.5-5.1) L Chloride Level 96 MMOL/L (98-107) L Carbon Dioxide Level 22 MMOL/L (21-32) Anion Gap 16 mmol/L (5-15) H Blood Urea Nitrogen 41 mg/dL (7-18) H Creatinine 2.9 MG/DL (0.55-1.30) H Estimat Glomerular Filtration Rate 19.3 mL/min (>60) Glucose Level 157 MG/DL (74-106) H Lactic Acid Level 4.90 mmol/L (0.4-2.0) H 3.10 mmol/L (0.66-2.22) H Calcium Level 9.1 MG/DL (8.5-10.1) Phosphorus Level 1.7 MG/DL (2.5-4.9) L Magnesium Level 1.2 MG/DL (1.8-2.4) L Ferritin 202 NG/ML (8-388) Total Bilirubin 1.0 MG/DL (0.2-1.0) Aspartate Amino Transf (AST/SGOT) 31 U/L (15-37) Alanine Aminotransferase (ALT/SGPT) 12 U/L (12-78) Alkaline Phosphatase 121 U/L (46-116) H Lactate Dehydrogenase 274 U/L (81-234) H Total Creatine Kinase 268 U/L (26-308) Troponin I 0.634 ng/mL (0.000-0.056) C-Reactive Protein, Quantitative 21.6 mg/dL (0.00-0.90) H Pro-B-Type Natriuretic Peptide 8602 pg/mL (0-125) H Total Protein 8.9 G/DL (6.4-8.2) H Albumin 3.1 G/DL (3.4-5.0) L Globulin 5.8 g/dL Albumin/Globulin Ratio 0.5 (1.0-2.7) L Lipase 74 U/L (73-393) Arterial Blood pH 7.473 (7.350-7.450) Arterial Blood Partial Pressure CO2 30.7 mmHg (35.0-45.0) L Arterial Blood Partial Pressure O2 103.7 mmHg (75.0-100.0) H Arterial Blood HCO3 22.0 mmol/L (22.0-26.0) Arterial Blood Oxygen Saturation 97.8 % (95-100) Arterial Blood Base Excess -1.0 (-2-2) Hardeep Test Positive Bandar Brownlee MD Apr 29, 2020 13:54
[2020-04-29] MEDS ORDERED: Morphine Sulfate 4mg/ml Inj (IV USE ONLY) IVP PRN (14:00)
[2020-04-29] MEDS ORDERED: Miralax 17gm pkt ORAL PRN (14:00)
[2020-04-29] MEDS ORDERED: Albuterol/Ipratropium 3ml neb HHN PRN (14:00)
[2020-04-29] MEDS ORDERED: LORazepam Inj 2mg/ml 1ml IV PRN (14:00)
--- NOTE | 2020-04-29 14:20 | Consultation ---
History of Present Illness General Date patient seen: Apr 29, 2020 Chief Complaint: Fever Present Illness HPI 74-year-old -[place] female with past medical history of diabetes, hypertension, A. fib on anticoagulation, CAD status post [place], CHF, hypothyroidism, obesity, chronic bilateral leg lymphedema, renal insufficiency, rheumatoid arthritis, morbid obesity, iron deficiency anemia, brought by [facility] for shortness of breath. Patient was hypoxic on room air according to EMS. She was placed on 15 L nonrebreather face mask and now was saturating at 90%. She had low grade fever in ER and was COVID positive. She is admitted for further management. Allergies: Coded Allergies: CODEINE (Verified Allergy, Unknown, 10/10/19) Medication History Scheduled Allopurinol* (Allopurinol*), 300 MG ORAL DAILY Amlodipine Besylate* (Amlodipine Besylate*), 10 MG ORAL DAILY, (Reported) Ascorbic Acid* (Ascorbic Acid*), 500 MG ORAL DAILY, (Reported) Aspirin* (Aspirin*), 81 MG ORAL DAILY, (Reported) Brinzolamide/Brimonid Tart (Simbrinza 1%-0.2% Eye Drops), 8 ML OP TWICE A DAY, (Reported) Cholecalciferol (Vitamin D3) (Vitamin D3), 25 MCG PO DAILY, (Reported) Clonidine HCl (Clonidine HCl), 0.1 MG GT Q6HR, (Reported) Docusate Sodium* (Colace*), 100 MG ORAL THREE TIMES A DAY, (Reported) Furosemide* (Lasix*), 40 MG ORAL DAILY Gabapentin* (Gabapentin*), 100 MG ORAL THREE TIMES A DAY, (Reported) Glipizide* (Glipizide*), 5 MG ORAL DAILY, (Reported) Isosorbide Dinitrate (Isosorbide Dinitrate), 30 MG PO DAILY, (Reported) Lactobacillus Acidophilus (Acidophilus), 1 EACH PO DAILY, (Reported) Latanoprost/Pf (Latanoprost 0.005% Eye Drop), 1 DRP OP QHS, (Reported) Mag Hydrox/Al Hydrox/Simeth (Norma-Lanta Liquid), 15 ML PO Q6HR, (Reported) Metformin Hcl* (Metformin Hcl*), 500 MG ORAL TWICE A DAY, (Reported) Multivitamin with Minerals (Multivitamins with Minerals), 1 TAB ORAL DAILY, (Reported) Omeprazole (Omeprazole), 20 MG ORAL AC, (Reported) Polyethylene Glycol 3350* (Miralax*), 17 GM ORAL DAILY, (Reported) Simvastatin (Zocor), 10 MG ORAL BEDTIME, (Reported) Scheduled PRN Acetaminophen* (Acetaminophen 325MG Tablet*), 650 MG ORAL Q4H PRN for pain/fever, (Reported) Acetaminophen* (Acetaminophen 325MG Tablet*), 650 MG ORAL Q4H PRN for For Pain, (Reported) Hydrocodone Bit/Acetaminophen 5-325* ([place] 5-325 Tablet*), 1 TAB ORAL Q8HR PRN for FOR PAIN, (Reported) Insulin Regular, Human* (Novolin R*), 0 SUBQ .SLIDING SCALE PRN for Sliding Scale, (Reported) Nitroglycerin 0.4MG table* (Nitroglycerin*), 0.4 MG SL .Q5MIN X 3 DOSES PRN for CHEST PAIN, (Reported) Discontinued Medications Tramadol Hcl* (Ultram*), 50 MG ORAL Q6H PRN for For Pain, (Reported) Discontinued Reason: Pt stopped taking med Warfarin Sod* (Warfarin Sod*), 12.5 MG ORAL DAILY, (Reported) Discontinued Reason: Therapy completed Patient History Healthcare decision maker Resuscitation status Advanced Directive on File Past Medical/Surgical History Past Medical/Surgical History: (1) Diabetes mellitus (2) Morbid obesity (3) Chronic atrial fibrillation (4) History of DVT (deep vein thrombosis) (5) Limited mobility Review of Systems All Other Systems: negative except mentioned in HPI Physical Exam General Appearance: WD/WN, overweight, obese Lines, tubes and drains: peripheral HEENT: normocephalic, atraumatic Neck: non-tender, normal alignment Respiratory/Chest: chest wall non-tender, lungs clear Breasts: no masses Cardiovascular/Chest: normal peripheral pulses Abdomen: normal bowel sounds, non tender Genitourinary/Rectal: normal genital exam, heme negative stool Extremities: normal range of motion, non-tender Skin Exam: normal pigmentation Last 24 Hour Vital Signs Date Time Temp Pulse Resp B/P (MAP) Pulse Ox O2 Delivery O2 Flow Rate FiO2 04/29/20 13:01 99.1 96 25 91/50 100 Mechanical Ventilator 30 04/29/20 11:45 99.6 102 29 97/57 100 Bi-pap 4.0 30 04/29/20 11:16 99.6 04/29/20 11:04 30 04/29/20 10:57 128 21 108/47 99 Nasal Cannula 4.0 04/29/20 08:55 135 20 Nasal Cannula 4.0 04/29/20 08:55 100.2 134 20 149/83 98 Nasal Cannula 4.0 04/29/20 08:51 100.2 126 20 149/83 (105) 98 Non-Rebreather 15.0 Laboratory Tests Test 04/29/20 09:10 04/29/20 10:17 04/29/20 10:50 White Blood Count 24.9 K/UL (4.8-10.8) *H Red Blood Count 3.96 M/UL (4.20-5.40) L Hemoglobin 10.9 G/DL (12.0-16.0) L Hematocrit 32.0 % (37.0-47.0) L Mean Corpuscular Volume 81 FL (80-99) Mean Corpuscular Hemoglobin 27.6 PG (27.0-31.0) Mean Corpuscular Hemoglobin Concent 34.1 G/DL (32.0-36.0) Red Cell Distribution Width 17.3 % (11.6-14.8) H Platelet Count 287 K/UL (150-450) Mean Platelet Volume 9.6 FL (6.5-10.1) Neutrophils (%) (Auto) % (45.0-75.0) Lymphocytes (%) (Auto) % (20.0-45.0) Monocytes (%) (Auto) % (1.0-10.0) Eosinophils (%) (Auto) % (0.0-3.0) Basophils (%) (Auto) % (0.0-2.0) Differential Total Cells Counted 100 Neutrophils % (Manual) 93 % (45-75) H Lymphocytes % (Manual) 2 % (20-45) L Monocytes % (Manual) 5 % (1-10) Eosinophils % (Manual) 0 % (0-3) Basophils % (Manual) 0 % (0-2) Band Neutrophils 0 % (0-8) Platelet Estimate Adequate Platelet Morphology Normal Hypochromasia 1+ Anisocytosis 1+ Prothrombin Time 44.7 SEC (9.30-11.50) H Prothromb Time International Ratio 4.5 (0.9-1.1) H Activated Partial Thromboplast Time 47 SEC (23-33) H D-Dimer 0.75 mg/L FEU (0.00-0.49) H Urine Color Yellow Urine Appearance Cloudy Urine pH 5 (4.5-8.0) Urine Specific [place] 1.015 (1.005-1.035) Urine Protein 3+ (NEGATIVE) H Urine Glucose (UA) Negative (NEGATIVE) Urine Ketones 2+ (NEGATIVE) H Urine Blood 4+ (NEGATIVE) H Urine Nitrite Negative (NEGATIVE) Urine Bilirubin Negative (NEGATIVE) Urine Urobilinogen Normal MG/DL (0.0-1.0) Urine Leukocyte Esterase 3+ (NEGATIVE) H Urine RBC 5-10 /HPF (0 - 2) H Urine WBC 40-60 /HPF (0 - 2) H Urine Squamous Epithelial Cells Few /LPF (NONE/OCC) Urine Bacteria Moderate /HPF (NONE) H Sodium Level 134 MMOL/L (136-145) L Potassium Level 3.2 MMOL/L (3.5-5.1) L Chloride Level 96 MMOL/L (98-107) L Carbon Dioxide Level 22 MMOL/L (21-32) Anion Gap 16 mmol/L (5-15) H Blood Urea Nitrogen 41 mg/dL (7-18) H Creatinine 2.9 MG/DL (0.55-1.30) H Estimat Glomerular Filtration Rate 19.3 mL/min (>60) Glucose Level 157 MG/DL (74-106) H Lactic Acid Level 4.90 mmol/L (0.4-2.0) H 3.10 mmol/L (0.66-2.22) H Calcium Level 9.1 MG/DL (8.5-10.1) Phosphorus Level 1.7 MG/DL (2.5-4.9) L Magnesium Level 1.2 MG/DL (1.8-2.4) L Ferritin 202 NG/ML (8-388) Total Bilirubin 1.0 MG/DL (0.2-1.0) Aspartate Amino Transf (AST/SGOT) 31 U/L (15-37) Alanine Aminotransferase (ALT/SGPT) 12 U/L (12-78) Alkaline Phosphatase 121 U/L (46-116) H Lactate Dehydrogenase 274 U/L (81-234) H Total Creatine Kinase 268 U/L (26-308) Troponin I 0.634 ng/mL (0.000-0.056) C-Reactive Protein, Quantitative 21.6 mg/dL (0.00-0.90) H Pro-B-Type Natriuretic Peptide 8602 pg/mL (0-125) H Total Protein 8.9 G/DL (6.4-8.2) H Albumin 3.1 G/DL (3.4-5.0) L Globulin 5.8 g/dL Albumin/Globulin Ratio 0.5 (1.0-2.7) L Lipase 74 U/L (73-393) Arterial Blood pH 7.473 (7.350-7.450) Arterial Blood Partial Pressure CO2 30.7 mmHg (35.0-45.0) L Arterial Blood Partial Pressure O2 103.7 mmHg (75.0-100.0) H Arterial Blood HCO3 22.0 mmol/L (22.0-26.0) Arterial Blood Oxygen Saturation 97.8 % (95-100) Arterial Blood Base Excess -1.0 (-2-2) Hardeep Test Positive Microbiology Date/Time Source Procedure Growth Status 04/29/20 09:15 Rectum Received 04/29/20 09:10 Nasopharynx SARS-CoV-2 RdRp Gene Assay - Final Complete Height (Feet): 5 Height (Inches): 6.00 Weight (Pounds): 350 Medications Current Medications Medications (Trade) Dose Ordered Sig/Adria Route PRN Reason Start Time Stop Time Status Last Admin Dose Admin Acetaminophen (Tylenol) 650 mg Q4H PRN ORAL Temp >100.5 04/29/20 14:00 05/29/20 13:59 Albuterol/ Ipratropium (Combivent Respimat) 1 puff Q4H PRN INH Shortness of Breath 04/29/20 14:00 05/29/20 13:59 UNV Allopurinol (Zyloprim) 300 mg DAILY ORAL 04/30/20 09:00 05/30/20 08:59 UNV Dextrose (Dextrose 50%) 25 ml Q30M PRN IV Hypoglycemia 04/29/20 14:00 07/28/20 13:59 Dextrose (Dextrose 50%) 50 ml Q30M PRN IV Hypoglycemia 04/29/20 14:00 07/28/20 13:59 Ertapenem 1 gm/ Sodium Chloride 55 ml @ 110 mls/hr Q24H IV 04/29/20 23:45 05/04/20 23:44 UNV Furosemide (Lasix) 60 mg ONCE IV 04/29/20 14:00 04/29/20 15:00 04/29/20 14:06 Heparin Sodium (Porcine) (Heparin 5000 units/ml) 5,000 units EVERY 12 HOURS SUBQ 04/29/20 21:00 06/13/20 20:59 UNV Lorazepam (Ativan 2mg/ml 1ml) 2 mg Q2H PRN IV For Anxiety 04/29/20 14:00 05/06/20 13:59 Ondansetron HCl (Zofran) 4 mg Q6H PRN IVP Nausea & Vomiting 04/29/20 14:00 05/29/20 13:59 Polyethylene Glycol (Miralax) 17 gm DAILYPRN PRN ORAL Constipation 04/29/20 14:00 05/29/20 13:59 Assessment/Plan Problem List: (1) Sepsis ICD Codes: A41.9 - Sepsis, unspecified organism SNOMED: 77167956 (2) Renal failure (ARF), acute on chronic ICD Codes: N17.9 - Acute kidney failure, unspecified; N18.9 - Chronic kidney disease, unspecified SNOMED: 682005434 (3) Atrial fibrillation, rapid ICD Codes: I48.91 - Unspecified atrial fibrillation SNOMED: 581005111 (4) Diabetes mellitus ICD Codes: E11.9 - Type 2 diabetes mellitus without complications SNOMED: 89854906 (5) Morbid obesity ICD Codes: E66.01 - Morbid (severe) obesity due to excess calories SNOMED: 503726181 (6) History of DVT (deep vein thrombosis) ICD Codes: Z86.718 - Personal history of other venous thrombosis and embolism SNOMED: 938897707 Assessment/Plan: salmeron culture ID evaluation IV abx Decadron telemetry monitoring Echocardiogram dvt prophylaxis. Bandar Brownlee MD Apr 29, 2020 14:20
--- NOTE | 2020-04-29 16:39 | Consultation ---
Consult Note Consult Note I am asked to evaluate for renal failure Patient known to me from her previous admission here at [facility] in October 2019 At the time the patient was discharged with creatinine of 2.3 Patient is a 74-year-old -[place] female with past medical history of diabetes, hypertension, A. fib on anticoagulation, CAD status post [place], CHF, hypothyroidism, obesity, chronic bilateral leg lymphedema, renal failure, dyslipidemia, rheumatoid arthritis, morbid obesity, iron deficiency anemia, brought by ambulance from [facility] for shortness of breath. Patient was hypoxic on room air according to EMS. She was placed on 15 L nonrebreather facemask and now is saturating at 90%. History is limited secondary to patient's clinical condition. The patient's symptoms were gradual onset, severity was moderate, duration since unknown amount of time. No recent Covid testing on file.. Quality: Generally weak diabetes, hypertension, A. fib on Coumadin, CAD, previous [place], CHF, hypothyroidism, Past medical history: Chronic bilateral leg lymphedema, renal failure, dyslipidemia, rheumatoid arthritis, iron deficiency anemia, previous E. coli sepsis, previous bacteremia Past surgical history: Denies Allergies: CODEINE (Verified Allergy, Unknown, 10/10/19) COVID-19 Screening Contact w/high risk pt: No Recent Travel to affected area: No Experienced COVID-19 symptoms?: Yes COVID-19 symptoms experienced: Fever (T>100.4F or >38C) COVID-19 Testing performed PR INTERN: Yes COVID-19 Screening: Negative COVID-19 COVID-19 Testing Source: 2 weeks ago Hx Cardiac Problems: Yes Hx Hypertension: Yes Hx Diabetes: Yes Vital Signs Date Time Temp Pulse Resp B/P (MAP) Pulse Ox O2 Delivery O2 Flow Rate FiO2 04/29/20 08:51 100.2 126 20 149/83 (105) 98 Non-Rebreather 15.0 PHYSICAL EXAMINATION: I did not see the patient in light of the fact that she is COVID positive acutely. According to Dr. Brownlee who saw the patient: GENERAL: The patient was not felt to be in any respiratory distress. LUNGS: Rhonchi were noted on the left side as well as the right side. CARDIAC: Regular rate. Normal peripheral pulses are felt. Patient had a regular rate. ABDOMEN: Soft, nontender. EXTREMITIES: There was no cyanosis or edema. LABORATORY VALUES: Telemetry data first of all shows atrial fibrillation. There are some what appears to be likely premature versus aberrant conduction beats, but they are not very frequent on telemetry. Her electrocardiogram shows ventricular rate of 133, possibly flutter, although there is a poor quality tracing and delay in R-wave progression and leftward axis left axis deviation is noted. Her blood tests show sodium 136, potassium 3.1, chloride 98, bicarb 25, BUN 64, creatinine 3.0, glucose of 372. A1c of 7.1. Liver function tests were normal today. ProBNP was down to 15,000 from 20,000 yesterday that was up from 8000 the day before. She has had levels up to 27,000 in her last hospitalization. Her glucose of 372. Troponin of 0.435. These are relatively the same levels that she has been running around for a long time, but she has never had normal troponins on her previous nor present hospitalization. Her coags, INR was 6.9 today, up from 4.5 two days ago. D-dimer was 0.75. White count is up to 22.3. She has been at the time of admission 24.9, hemoglobin 8.9, and platelet count of 242, 94 polys, 3% lymphocytes. Sodium 136, potassium 3.1, chloride 98, bicarb 25, BUN of 64, creatinine 3.0. Her chest x-ray done yesterday shows slight worsening of the bilateral interstitial and airspace infiltrates. Her renal ultrasound negative for hydronephrosis. Chest x-ray at the time of admission on 04/29/2020 showed cardiomegaly. . Assessment/Plan 74-year-old female presents with acute respiratory failure she is morbidly obese Acute renal failure Underlying chronic kidney disease Chronic atrial fibrillation Diabetes mellitus/nephropathy History of DVT Sepsis Non-STEMI [place] Morbid obesity Anemia Anne catheter Urine studies Monitor electrolytes Kidney ultrasound Avoid nephrotoxic's 2D echocardiogram Albumin bolus Per orders Pantera Wallace MD Apr 29, 2020 16:39
[2020-04-29] MEDS ORDERED: Ertapenem 0.5gm in NS 55ml IV SCH (17:00)
[2020-04-29] MEDS: Pantoprazole Inj IVP SCH (20:39)
[2020-04-29] MEDS: Heparin 5000 units/ml inj SUBQ SCH (20:41)
[2020-04-29 21:33] LABS: APPEARANCE,URINE CLOUDY; BILIRUBIN, URINE NEGATIVE (NEGATIVE); GLUCOSE, URINE (UA) NEGATIVE (NEGATIVE); KETONES,URINE 1+ (NEGATIVE); LEUKOCYTE ESTERASE ,URINE 3+ (NEGATIVE); NITRITE,URINE NEGATIVE (NEGATIVE); PH,URINE 5 (4.5-8.0); PROTEIN,URINE 3+ (NEGATIVE); UROBILINOGEN,URINE NORMAL MG/DL (0.0-1.0)
[2020-04-29 21:46] LABS: COLOR,URINE YELLOW
[2020-04-29] MEDS ORDERED: Amikacin 0 MG in NS 110 ML IV SCH (23:45)
[2020-04-29] MEDS ORDERED: Vancomycin 1 GM in D5W 275 ML IV SCH (23:45)
[2020-04-29] MEDS ORDERED: Ertapenem 1 GM in NS 55 ML IV SCH (23:45)
[2020-04-30] VITALS: BP 99/57
[2020-04-30 04:00] VITALS: BP 114/57
[2020-04-30 06:04] LABS: ALANINE AMINOTRANSFERASE 14 U/L (12-78); ALBUMIN 2.8 G/DL (3.4-5.0); ALBUMIN/GLOBULIN RATIO 0.6 (1.0-2.7); ALKALINE PHOSPHATASE 75 U/L (46-116); ANION GAP 12 mmol/L (5-15); ASPARTATE AMINO TRANSFERASE 33 U/L (15-37); BILIRUBIN,TOTAL 0.5 MG/DL (0.2-1.0); BLOOD UREA NITROGEN 52 mg/dL (7-18); CALCIUM 8.5 MG/DL (8.5-10.1); CARBON DIOXIDE 26 MMOL/L (21-32); CHLORIDE 100 MMOL/L (98-107); CREATINE KINASE 485 U/L (26-308); CREATININE 3.2 MG/DL (0.55-1.30); POTASSIUM 3.9 MMOL/L (3.5-5.1); SODIUM 138 MMOL/L (136-145)
[2020-04-30 06:13] LABS: AMMONIA < 10 umol/L (11-32)
[2020-04-30 06:15] LABS: % IRON SATURATION 6 % (15-50); IRON 10 ug/dL (50-175); TOTAL IRON BINDING CAPACITY 180 ug/dL (250-450)
[2020-04-30 06:21] LABS: ALANINE AMINOTRANSFERASE 13 U/L (12-78); ALBUMIN 2.8 G/DL (3.4-5.0); ALKALINE PHOSPHATASE 74 U/L (46-116); ASPARTATE AMINO TRANSFERASE 33 U/L (15-37); BILIRUBIN,DIRECT 0.2 MG/DL (0.0-0.3); BILIRUBIN,TOTAL 0.5 MG/DL (0.2-1.0); CHOLESTEROL 85 MG/DL (< 200); FERRITIN 224 NG/ML (8-388); HDL CHOLESTEROL 24 MG/DL (40-60); TRIGLYCERIDES 76 MG/DL (30-150)
[2020-04-30 06:31] LABS: GAMMA GLUTAMYL TRANSPEPTIDASE 15 U/L (5-85); PHOSPHORUS 4.8 MG/DL (2.5-4.9)
[2020-04-30 07:00] LABS: HEMATOCRIT 30.3 % (37.0-47.0); HEMOGLOBIN 9.4 G/DL (12.0-16.0); MEAN CORPUSCULAR VOLUME 89 FL (80-99); PLATELET COUNT 277 K/UL (150-450); RED BLOOD COUNT 3.41 M/UL (4.20-5.40); WHITE BLOOD COUNT 21.9 K/UL (4.8-10.8)
--- NOTE | 2020-04-30 08:29 | Consultation ---
History of Present Illness General Date patient seen: Apr 30, 2020 Time patient seen: 10:27 Chief Complaint: Fever Referring physician: PCP Reason for Consultation: Sepsis, COVID Present Illness HPI 74yo F who p/w sepsis, acute hypoxia, found to have COVID and GNR bacteremia for which ID is consulted. Pt is AF in house, lower BPs, on BiPAP, agitated, no alert. Bcx +GNRs. WBC 21 from 24 Allergies: Coded Allergies: CODEINE (Verified Allergy, Unknown, 10/10/19) Medication History Scheduled Allopurinol* (Allopurinol*), 300 MG ORAL DAILY Amlodipine Besylate* (Amlodipine Besylate*), 10 MG ORAL DAILY, (Reported) Ascorbic Acid* (Ascorbic Acid*), 500 MG ORAL DAILY, (Reported) Aspirin* (Aspirin*), 81 MG ORAL DAILY, (Reported) Brinzolamide/Brimonid Tart (Simbrinza 1%-0.2% Eye Drops), 8 ML OP TWICE A DAY, (Reported) Docusate Sodium* (Colace*), 100 MG ORAL THREE TIMES A DAY, (Reported) Furosemide* (Lasix*), 40 MG ORAL DAILY Gabapentin* (Gabapentin*), 100 MG ORAL THREE TIMES A DAY, (Reported) Glipizide (Glipizide), 10 MG PO BID Glipizide* (Glipizide*), 5 MG ORAL DAILY, (Reported) Insulin Regular, Human (NovoLIN R Flexpen), 100 UNIT SQ PER SLIDING SCALE, (Reported) Insulin Regular, Human* (Novolin R*), 0 SUBQ .SLIDING SCALE, (Reported) Isosorbide Dinitrate (Isosorbide Dinitrate), 30 MG PO DAILY, (Reported) Isosorbide Mononitrate (Isosorbide Mononitrate Er), 30 MG ORAL DAILY Lactobacillus Acidophilus (Acidophilus), 1 EACH PO DAILY, (Reported) Mag Hydrox/Al Hydrox/Simeth (Norma-Lanta Liquid), 15 ML PO Q6HR, (Reported) Metformin Hcl* (Metformin Hcl*), 500 MG ORAL TWICE A DAY, (Reported) Multivitamin with Minerals (Multivitamins with Minerals), 1 TAB ORAL DAILY, (Reported) Omeprazole (Omeprazole), 20 MG ORAL DAILY, (Reported) Polyethylene Glycol 3350* (Miralax*), 17 GM ORAL DAILY, (Reported) Simvastatin (Zocor), 10 MG ORAL BEDTIME, (Reported) Warfarin Sod* (Warfarin Sod*), 12.5 MG ORAL DAILY, (Reported) Scheduled PRN Acetaminophen* (Acetaminophen 325MG Tablet*), 650 MG ORAL Q4H PRN for pain/fever, (Reported) Hydrocodone Bit/Acetaminophen 5-325* ([place] 5-325 Tablet*), 1 TAB ORAL Q8HR PRN for FOR PAIN, (Reported) Nitroglycerin 0.4MG table* (Nitroglycerin*), 0.4 MG SL .Q5MIN X 3 DOSES PRN for CHEST PAIN, (Reported) Tramadol Hcl* (Ultram*), 50 MG ORAL Q6H PRN for For Pain, (Reported) Miscellaneous Medications Clonidine HCl (Clonidine HCl), 0.1 MG GT, (Reported) Latanoprost/Pf (Latanoprost 0.005% Eye Drop), 7.5 ML OP, (Reported) Patient History Healthcare decision maker Resuscitation status Advanced Directive on File Review of Systems ROS Narrative Unable to assess 2/2 pt condition Physical Exam Physical Exam Narrative Gen: NAD HEENT: NCAT Pulm: BL chest rise Abd: Non-distended Ext: No c/c/e Skin: No visible rashes Neuro: Awake Last 24 Hour Vital Signs Date Time Temp Pulse Resp B/P (MAP) Pulse Ox O2 Delivery O2 Flow Rate FiO2 04/30/20 04:00 82 04/30/20 04:00 97.0 73 15 114/57 (76) 100 04/30/20 00:00 95.5 58 16 99/57 (71) 100 04/30/20 00:00 57 04/29/20 21:00 Nasal Cannula 4.0 04/29/20 20:00 96.9 63 20 91/56 (68) 100 04/29/20 19:44 Nasal Cannula 4.0 04/29/20 17:00 58 04/29/20 17:00 97.0 56 20 113/63 (80) 99 04/29/20 16:50 98.4 75 22 96/75 100 Nasal Cannula 4.0 04/29/20 16:42 98.0 84 24 110/60 98 Non-Rebreather 10.0 04/29/20 15:28 98.7 90 25 104/62 100 Nasal Cannula 4.0 30 04/29/20 13:01 99.1 96 25 91/50 100 Non-Rebreather 15.0 30 04/29/20 11:45 99.6 102 29 97/57 100 Bi-pap 4.0 30 04/29/20 11:16 99.6 04/29/20 11:04 30 04/29/20 10:57 128 21 108/47 99 Nasal Cannula 4.0 04/29/20 08:55 135 20 Nasal Cannula 4.0 04/29/20 08:55 100.2 134 20 149/83 98 Nasal Cannula 4.0 04/29/20 08:51 100.2 126 20 149/83 (105) 98 Non-Rebreather 15.0 Intake and Output 04/29/20 04/30/20 19:00 07:00 Intake Total 1490 ml 570 ml Output Total 35 ml 250 ml Balance 1455 ml 320 ml Intake Oral 0 ml IV Total 1490 ml 550 ml Other 20 ml Output Urine Total 35 ml 250 ml # Bowel Movements 1 Laboratory Tests Test 04/29/20 09:10 04/29/20 10:17 04/29/20 10:50 04/29/20 18:24 White Blood Count 24.9 K/UL (4.8-10.8) *H Red Blood Count 3.96 M/UL (4.20-5.40) L Hemoglobin 10.9 G/DL (12.0-16.0) L Hematocrit 32.0 % (37.0-47.0) L Mean Corpuscular Volume 81 FL (80-99) Mean Corpuscular Hemoglobin 27.6 PG (27.0-31.0) Mean Corpuscular Hemoglobin Concent 34.1 G/DL (32.0-36.0) Red Cell Distribution Width 17.3 % (11.6-14.8) H Platelet Count 287 K/UL (150-450) Mean Platelet Volume 9.6 FL (6.5-10.1) Neutrophils (%) (Auto) % (45.0-75.0) Lymphocytes (%) (Auto) % (20.0-45.0) Monocytes (%) (Auto) % (1.0-10.0) Eosinophils (%) (Auto) % (0.0-3.0) Basophils (%) (Auto) % (0.0-2.0) Differential Total Cells Counted 100 Neutrophils % (Manual) 93 % (45-75) H Lymphocytes % (Manual) 2 % (20-45) L Monocytes % (Manual) 5 % (1-10) Eosinophils % (Manual) 0 % (0-3) Basophils % (Manual) 0 % (0-2) Band Neutrophils 0 % (0-8) Platelet Estimate Adequate Platelet Morphology Normal Hypochromasia 1+ Anisocytosis 1+ Prothrombin Time 44.7 SEC (9.30-11.50) H Prothromb Time International Ratio 4.5 (0.9-1.1) H Activated Partial Thromboplast Time 47 SEC (23-33) H D-Dimer 0.75 mg/L FEU (0.00-0.49) H Urine Color Yellow Yellow Urine Appearance Cloudy Cloudy Urine pH 5 (4.5-8.0) 5 (4.5-8.0) Urine Specific [place] 1.015 (1.005-1.035) 1.015 (1.005-1.035) Urine Protein 3+ (NEGATIVE) H 3+ (NEGATIVE) H Urine Glucose (UA) Negative (NEGATIVE) Negative (NEGATIVE) Urine Ketones 2+ (NEGATIVE) H 1+ (NEGATIVE) H Urine Blood 4+ (NEGATIVE) H 4+ (NEGATIVE) H Urine Nitrite Negative (NEGATIVE) Negative (NEGATIVE) Urine Bilirubin Negative (NEGATIVE) Negative (NEGATIVE) Urine Urobilinogen Normal MG/DL (0.0-1.0) Normal MG/DL (0.0-1.0) Urine Leukocyte Esterase 3+ (NEGATIVE) H 3+ (NEGATIVE) H Urine RBC 5-10 /HPF (0 - 2) H 10-15 /HPF (0 - 2) H Urine WBC 40-60 /HPF (0 - 2) H Tntc /HPF (0 - 2) H Urine Squamous Epithelial Cells Few /LPF (NONE/OCC) Moderate /LPF (NONE/OCC) H Urine Bacteria Moderate /HPF (NONE) H Many /HPF (NONE) H Sodium Level 134 MMOL/L (136-145) L Potassium Level 3.2 MMOL/L (3.5-5.1) L Chloride Level 96 MMOL/L (98-107) L Carbon Dioxide Level 22 MMOL/L (21-32) Anion Gap 16 mmol/L (5-15) H Blood Urea Nitrogen 41 mg/dL (7-18) H Creatinine 2.9 MG/DL (0.55-1.30) H Estimat Glomerular Filtration Rate 19.3 mL/min (>60) Glucose Level 157 MG/DL (74-106) H Lactic Acid Level 4.90 mmol/L (0.4-2.0) H 3.10 mmol/L (0.66-2.22) H Calcium Level 9.1 MG/DL (8.5-10.1) Phosphorus Level 1.7 MG/DL (2.5-4.9) L Magnesium Level 1.2 MG/DL (1.8-2.4) L Ferritin 202 NG/ML (8-388) Total Bilirubin 1.0 MG/DL (0.2-1.0) Aspartate Amino Transf (AST/SGOT) 31 U/L (15-37) Alanine Aminotransferase (ALT/SGPT) 12 U/L (12-78) Alkaline Phosphatase 121 U/L (46-116) H Lactate Dehydrogenase 274 U/L (81-234) H Total Creatine Kinase 268 U/L (26-308) Troponin I 0.634 ng/mL (0.000-0.056) C-Reactive Protein, Quantitative 21.6 mg/dL (0.00-0.90) H Pro-B-Type Natriuretic Peptide 8602 pg/mL (0-125) H Total Protein 8.9 G/DL (6.4-8.2) H Albumin 3.1 G/DL (3.4-5.0) L Globulin 5.8 g/dL Albumin/Globulin Ratio 0.5 (1.0-2.7) L Lipase 74 U/L (73-393) Arterial Blood pH 7.473 (7.350-7.450) Arterial Blood Partial Pressure CO2 30.7 mmHg (35.0-45.0) L Arterial Blood Partial Pressure O2 103.7 mmHg (75.0-100.0) H Arterial Blood HCO3 22.0 mmol/L (22.0-26.0) Arterial Blood Oxygen Saturation 97.8 % (95-100) Arterial Blood Base Excess -1.0 (-2-2) Hardeep Test Positive Urine Calcium Oxalate Crystals Many /LPF (NONE) Urine Eosinophils None seen (NONE SEEN) Urine Osmolality 352 mOsm/kg (429-449) L Urine Random Creatinine Pending Urine Random Microalbumin Pending Urine Random Sodium 26 mmol/L (20-110) Urine Microalbumin/Creatinine Ratio Pending Test 04/30/20 03:50 White Blood Count 21.9 K/UL (4.8-10.8) H Red Blood Count 3.41 M/UL (4.20-5.40) L Hemoglobin 9.4 G/DL (12.0-16.0) L Hematocrit 30.3 % (37.0-47.0) L Mean Corpuscular Volume 89 FL (80-99) # Mean Corpuscular Hemoglobin 27.7 PG (27.0-31.0) Mean Corpuscular Hemoglobin Concent 31.1 G/DL (32.0-36.0) L Red Cell Distribution Width 17.0 % (11.6-14.8) H Platelet Count 277 K/UL (150-450) Mean Platelet Volume 11.4 FL (6.5-10.1) H Neutrophils (%) (Auto) % (45.0-75.0) Lymphocytes (%) (Auto) % (20.0-45.0) Monocytes (%) (Auto) % (1.0-10.0) Eosinophils (%) (Auto) % (0.0-3.0) Basophils (%) (Auto) % (0.0-2.0) Differential Total Cells Counted 100 Neutrophils % (Manual) 90 % (45-75) H Lymphocytes % (Manual) 7 % (20-45) L Monocytes % (Manual) 2 % (1-10) Eosinophils % (Manual) 0 % (0-3) Basophils % (Manual) 1 % (0-2) Band Neutrophils 0 % (0-8) Platelet Estimate Adequate Platelet Morphology Normal Hypochromasia 1+ Anisocytosis 1+ Sodium Level 138 MMOL/L (136-145) Potassium Level 3.9 MMOL/L (3.5-5.1) Chloride Level 100 MMOL/L (98-107) Carbon Dioxide Level 26 MMOL/L (21-32) Anion Gap 12 mmol/L (5-15) Blood Urea Nitrogen 52 mg/dL (7-18) H Creatinine 3.2 MG/DL (0.55-1.30) H Estimat Glomerular Filtration Rate 17.2 mL/min (>60) Glucose Level 234 MG/DL (74-106) H Hemoglobin A1c 7.1 % (4.3-6.0) H Uric Acid 5.0 MG/DL (2.6-7.2) Calcium Level 8.5 MG/DL (8.5-10.1) Phosphorus Level 4.8 MG/DL (2.5-4.9) Magnesium Level 1.5 MG/DL (1.8-2.4) L Iron Level 10 ug/dL (50-175) L Total Iron Binding Capacity 180 ug/dL (250-450) L Percent Iron Saturation 6 % (15-50) L Unsaturated Iron Binding 170 ug/dL (112-346) Ferritin 224 NG/ML (8-388) Total Bilirubin 0.5 MG/DL (0.2-1.0) Direct Bilirubin 0.2 MG/DL (0.0-0.3) Gamma Glutamyl Transpeptidase 15 U/L (5-85) Aspartate Amino Transf (AST/SGOT) 33 U/L (15-37) Alanine Aminotransferase (ALT/SGPT) 13 U/L (12-78) Alkaline Phosphatase 74 U/L (46-116) Ammonia < 10 umol/L (11-32) L Total Creatine Kinase 485 U/L (26-308) H Troponin I 0.435 ng/mL (0.000-0.056) C-Reactive Protein, Quantitative 26.0 mg/dL (0.00-0.90) H Pro-B-Type Natriuretic Peptide 15914 pg/mL (0-125) H Total Protein 7.8 G/DL (6.4-8.2) Albumin 2.8 G/DL (3.4-5.0) L Globulin 5.0 g/dL Albumin/Globulin Ratio 0.6 (1.0-2.7) L Triglycerides Level 76 MG/DL (30-150) Cholesterol Level 85 MG/DL (< 200) LDL Cholesterol 35 mg/dL (<100) HDL Cholesterol 24 MG/DL (40-60) L Cholesterol/HDL Ratio 3.5 (3.3-4.4) Vitamin B12 Level 552 PG/ML (193-986) Folate 17.3 NG/ML (8.6-58.9) Thyroid Stimulating Hormone (TSH) 0.091 uiU/mL (0.358-3.740) Microbiology Date/Time Source Procedure Growth Status 04/29/20 09:30 Blood Blood Culture - Preliminary Resulted 04/29/20 09:15 Rectum Received 04/29/20 09:10 Nasopharynx SARS-CoV-2 RdRp Gene Assay - Final Complete 04/29/20 09:10 Blood Blood Culture - Preliminary Resulted Height (Feet): 5 Height (Inches): 6.00 Weight (Pounds): 350 Medications Current Medications Medications (Trade) Dose Ordered Sig/Adria Route PRN Reason Start Time Stop Time Status Last Admin Dose Admin Acetaminophen (Tylenol) 650 mg Q4H PRN ORAL Temp >100.5 04/29/20 14:00 05/29/20 13:59 Albuterol/ Ipratropium (Combivent Respimat) 1 puff Q4H PRN INH Shortness of Breath 04/29/20 14:00 05/29/20 13:59 Allopurinol (allopurinoL) 300 mg DAILY ORAL 04/30/20 09:00 05/30/20 08:59 Dexamethasone Sodium Phosphate (Decadron 10mg/ ml Inj) 6 mg DAILY IV 04/30/20 09:00 05/08/20 09:01 Dextrose (Dextrose 50%) 25 ml Q30M PRN IV Hypoglycemia 04/29/20 14:00 07/28/20 13:59 Dextrose (Dextrose 50%) 50 ml Q30M PRN IV Hypoglycemia 04/29/20 14:00 07/28/20 13:59 Ertapenem 0.5 gm/ Sodium Chloride 55 ml @ 110 mls/hr Q24H IV 04/29/20 17:00 05/04/20 16:59 04/29/20 18:20 Heparin Sodium (Porcine) (Heparin 5000 units/ml) 5,000 units EVERY 12 HOURS SUBQ 04/29/20 21:00 06/13/20 20:59 04/29/20 20:41 Lorazepam (Ativan 2mg/ml 1ml) 2 mg Q2H PRN IV For Anxiety 04/29/20 14:00 05/06/20 13:59 Magnesium Sulfate 100 ml @ 100 mls/hr Q1H IVPB 04/30/20 08:15 04/30/20 10:14 UNV Ondansetron HCl (Zofran) 4 mg Q6H PRN IVP Nausea & Vomiting 04/29/20 14:00 05/29/20 13:59 Pantoprazole (Protonix) 40 mg EVERY 12 HOURS IVP 04/29/20 21:00 05/29/20 20:59 04/29/20 20:39 Polyethylene Glycol (Miralax) 17 gm DAILYPRN PRN ORAL Constipation 04/29/20 14:00 05/29/20 13:59 Sodium Chloride 1,000 ml @ 50 mls/hr Q20H IV 04/29/20 17:00 05/29/20 16:59 04/29/20 18:21 Assessment/Plan Assessment/Plan: 74yo F with: Sepsis GNR bacteremia COVID pna Acute hypoxia 2/2 COVID pna Leukocytosis to 24, improving 04/29 COVID rapid + BCx +GNRs UA+, UCx p CXR: No acute process LG on CKD, Cr in 3s, increasing Afib DM Obesity Plan: Stop erta Start meropenem #1 Cont dexamethasone #2/10 Not candidate for RDV given CrCl No convalescent plasma available at this institution, and not shown to improve mortality F/u BCx +GNRs F/u BCx Trend WBC Monitor CBC/CMP Monitor temp curve, hemodynamics Monitor resp status D/w RN Thank you for this consult. [facility] will continue to follow. Keiry Amezquita M.D. Apr 30, 2020 08:29
[2020-04-30] MEDS ORDERED: Pantoprazole Inj IV SCH (09:00)
[2020-04-30] MEDS: Heparin 5000 units/ml inj SUBQ SCH ×2 (09:43→20:51)
[2020-04-30] MEDS: Pantoprazole Inj IVP SCH ×2 (09:44→20:50)
[2020-04-30] MEDS: dexAMETHasone 10mg/ml Inj IV SCH (09:45)
--- NOTE | 2020-04-30 10:10 | Diagnostic Imaging Report ---
Indication: Dyspnea Technique: One view of the chest Comparison: 04/29/2020 Findings: Bilateral interstitial and airspace infiltrates versus edema are increased somewhat. The heart remains markedly enlarged. Impression: Slight worsening of bilateral interstitial and airspace infiltrates versus edema
--- NOTE | 2020-04-30 10:43 | Nephrology Progress Note ---
Assessment/Plan Problem List: (1) Renal failure (ARF), acute on chronic (2) Acute respiratory failure (3) Atrial fibrillation, rapid (4) Morbid obesity (5) Diabetes mellitus (6) NSTEMI (non-ST elevated myocardial infarction) Assessment 74-year-old female presents with acute respiratory failure she is morbidly obese Acute renal failure Underlying chronic kidney disease Chronic atrial fibrillation Diabetes mellitus/nephropathy History of DVT Sepsis Non-STEMI MD Morbid obesity Anemia Plan April 30: We will start on renal diet medium carbs. Increase IV fluid to 100 cc an hour. 2D echocardiogram and kidney ultrasound pending. Continue to monitor renal parameters. Avoid nephrotoxic's. Keep the blood pressure and blood sugar in check. Previously: Anne catheter Urine studies Monitor electrolytes Kidney ultrasound Avoid nephrotoxic's 2D echocardiogram Albumin bolus Per orders Subjective ROS Limited/Unobtainable: No Constitutional: Reports: malaise, other - [facility] Objective Objective Last 24 Hour Vital Signs Date Time Temp Pulse Resp B/P (MAP) Pulse Ox O2 Delivery O2 Flow Rate FiO2 04/30/20 08:00 81 04/30/20 04:00 82 04/30/20 04:00 97.0 73 15 114/57 (76) 100 04/30/20 00:00 95.5 58 16 99/57 (71) 100 04/30/20 00:00 57 04/29/20 21:00 Nasal Cannula 4.0 04/29/20 20:00 96.9 63 20 91/56 (68) 100 04/29/20 19:44 Nasal Cannula 4.0 04/29/20 17:00 58 04/29/20 17:00 97.0 56 20 113/63 (80) 99 04/29/20 16:50 98.4 75 22 96/75 100 Nasal Cannula 4.0 04/29/20 16:42 98.0 84 24 110/60 98 Non-Rebreather 10.0 04/29/20 15:28 98.7 90 25 104/62 100 Nasal Cannula 4.0 30 04/29/20 13:01 99.1 96 25 91/50 100 Non-Rebreather 15.0 30 04/29/20 11:45 99.6 102 29 97/57 100 Bi-pap 4.0 30 04/29/20 11:16 99.6 04/29/20 11:04 30 04/29/20 10:57 128 21 108/47 99 Nasal Cannula 4.0 Intake and Output 04/29/20 04/30/20 19:00 07:00 Intake Total 1490 ml 570 ml Output Total 35 ml 250 ml Balance 1455 ml 320 ml Intake Oral 0 ml IV Total 1490 ml 550 ml Other 20 ml Output Urine Total 35 ml 250 ml # Bowel Movements 1 Laboratory Tests 04/29/20 10:50: Lactic Acid Level 3.10H 04/29/20 18:24: Urine Color Yellow, Urine Appearance Cloudy, Urine pH 5, Urine Specific [place] 1.015, Urine Protein 3+H, Urine Glucose (UA) Negative, Urine Ketones 1+H, Urine Blood 4+H, Urine Nitrite Negative, Urine Bilirubin Negative, Urine Urobilinogen Normal, Urine Leukocyte Esterase 3+H, Urine RBC 10-15H, Urine WBC TntcH, Urine Squamous Epithelial Cells ModerateH, Urine Calcium Oxalate Crystals Many, Urine Bacteria ManyH, Urine Eosinophils None seen, Urine Osmolality 352L, Urine Random Creatinine [Pending], Urine Random Microalbumin [Pending], Urine Random Sodium 26, Urine Microalbumin/Creatinine Ratio [Pending] 04/30/20 03:50: White Blood Count 21.9H, Red Blood Count 3.41L, Hemoglobin 9.4L, Hematocrit 30.3L, Mean Corpuscular Volume 89#, Mean Corpuscular Hemoglobin 27.7, Mean Corpuscular Hemoglobin Concent 31.1L, Red Cell Distribution Width 17.0H, Platelet Count 277, Mean Platelet Volume 11.4H, Neutrophils (%) (Auto) , Lymphocytes (%) (Auto) , Monocytes (%) (Auto) , Eosinophils (%) (Auto) , Baso phils (%) (Auto) , Differential Total Cells Counted 100, Neutrophils % (Manual) 90H, Lymphocytes % (Manual) 7L, Monocytes % (Manual) 2, Eosinophils % (Manual) 0, Basophils % (Manual) 1, Band Neutrophils 0, Platelet Estimate Adequate, Platelet Morphology Normal, Hypochromasia 1+, Anisocytosis 1+, Sodium Level 138, Potassium Level 3.9, Chloride Level 100, Carbon Dioxide Level 26, Anion Gap 12, Blood Urea Nitrogen 52H, Creatinine 3.2H, Estimat Glomerular Filtration Rate 17.2, Glucose Level 234H, Hemoglobin A1c 7.1H, Uric Acid 5.0, Calcium Level 8.5, Phosphorus Level 4.8, Magnesium Level 1.5L, Iron Level 10L, Total Iron Binding Capacity 180L, Percent Iron Saturation 6L, Unsaturated Iron Binding 170, Ferritin 224, Total Bilirubin 0.5, Direct Bilirubin 0.2, Gamma Glutamyl Transpeptidase 15, Aspartate Amino Transf (AST/SGOT) 33, Alanine Aminotransferase (ALT/SGPT) 13, Alkaline Phosphatase 74, Ammonia < 10L, Total Creatine Kinase 485H, Troponin I 0.435H, C-Reactive Protein, Quantitative 26.0H, Pro-B-Type Natriuretic Peptide 33740Q, Total Protein 7.8, Albumin 2.8L, Globulin 5.0, Albumin/Globulin Ratio 0.6L, Triglycerides Level 76, Cholesterol Level 85, LDL Cholesterol 35, HDL Cholesterol 24L, Cholesterol/HDL Ratio 3.5, Vitamin B12 Level 552, Folate 17.3, Thyroid Stimulating Hormone (TSH) 0.091L 04/30/20 10:01: Arterial Blood pH 7.434, Arterial Blood Partial Pressure CO2 34.9L, Arterial Blood Partial Pressure O2 69.0L, Arterial Blood HCO3 22.9, Arterial Blood Oxygen Saturation 94.2L, Arterial Blood Base Excess -1.0, Hardeep Test Positive Height (Feet): 5 Height (Inches): 6.00 Weight (Pounds): 350 General Appearance: no apparent distress EENT: other - On nasal cannula Cardiovascular: normal rate Respiratory/Chest: decreased breath sounds Abdomen: distended, other - Obese Pantera Wallace MD Apr 30, 2020 10:43
[2020-04-30] MEDS: Meropenem 500 MG in NS 55 ML IVPB SCH ×2 (12:34→20:50)
--- NOTE | 2020-04-30 15:02 | History & Physical ---
History and Physical History & Physicial job# [id number] Aleksandr Vega MD Apr 30, 2020 15:01
[2020-04-30 16:00] VITALS: BP 121/80
--- NOTE | 2020-04-30 17:15 | Diagnostic Imaging Report ---
Indication: Acute renal failure Technique: Grayscale and duplex images of the kidneys, retroperitoneum, and bladder were obtained. Comparison: none Findings: Right kidney measures 10.1 cm in length. Left kidney measures 10.2 cm in length. Both kidneys demonstrate normal echogenicity. No hydronephrosis. There is a cyst in the lower pole left kidney. There is an echogenic focus in the lower pole of left kidney. The bladder is poorly visualized, empty, as a Anne catheter. Normal inferior vena cava. Bladder is normal. Impression: Negative for hydronephrosis Left renal cyst and lower pole nonobstructive calculus.
--- NOTE | 2020-04-30 17:23 | Pulmonology Progress Note ---
Subjective ROS Limited/Unobtainable: No Interval Events: doing better Allergies: Coded Allergies: CODEINE (Verified Allergy, Unknown, 10/10/19) Objective Last 24 Hour Vital Signs Date Time Temp Pulse Resp B/P (MAP) Pulse Ox O2 Delivery O2 Flow Rate FiO2 04/30/20 16:00 98.1 92 20 121/80 (94) 100 04/30/20 12:00 86 04/30/20 11:55 97.0 04/30/20 08:00 81 04/30/20 04:00 82 04/30/20 04:00 97.0 73 15 114/57 (76) 100 04/30/20 00:00 95.5 58 16 99/57 (71) 100 04/30/20 00:00 57 04/29/20 21:00 Nasal Cannula 4.0 04/29/20 20:00 96.9 63 20 91/56 (68) 100 04/29/20 19:44 Nasal Cannula 4.0 Intake and Output 04/29/20 04/30/20 19:00 07:00 Intake Total 1490 ml 620 ml Output Total 35 ml 250 ml Balance 1455 ml 370 ml Intake Oral 0 ml IV Total 1490 ml 600 ml Other 20 ml Output Urine Total 35 ml 250 ml # Bowel Movements 1 General Appearance: WD/WN HEENT: normocephalic, atraumatic Respiratory: chest wall non-tender, rhonchi - left, rhonchi - right Cardiovascular: normal peripheral pulses, normal rate, regular rhythm Abdomen: normal bowel sounds, soft, non tender, no organomegaly Genitourinary: normal external genitalia Extremities: no cyanosis Neurologic: 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-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 grossly normal Microbiology Date/Time Source Procedure Growth Status 04/29/20 09:30 Blood Blood Culture - Preliminary Gram Negative Vitaly Resulted 04/29/20 09:15 Rectum Received 04/29/20 09:10 Nasopharynx SARS-CoV-2 RdRp Gene Assay - Final Complete 04/29/20 09:10 Blood Blood Culture - Preliminary Gram Negative Vitaly Resulted Laboratory Tests 04/29/20 18:24: Urine Color Yellow, Urine Appearance Cloudy, Urine pH 5, Urine Specific [place] 1.015, Urine Protein 3+H, Urine Glucose (UA) Negative, Urine Ketones 1+H, Urine Blood 4+H, Urine Nitrite Negative, Urine Bilirubin Negative, Urine Urobilinogen Normal, Urine Leukocyte Esterase 3+H, Urine RBC 10-15H, Urine WBC TntcH, Urine Squamous Epithelial Cells ModerateH, Urine Calcium Oxalate Crystals Many, Urine Bacteria ManyH, Urine Eosinophils None seen, Urine Osmolality 352L, Urine Random Creatinine [Pending], Urine Random Microalbumin [Pending], Urine Random Sodium 26, Urine Microalbumin/Creatinine Ratio [Pending] 04/30/20 03:50: White Blood Count 21.9H, Red Blood Count 3.41L, Hemoglobin 9.4L, Hematocrit 30.3L, Mean Corpuscular Volume 89#, Mean Corpuscular Hemoglobin 27.7, Mean Corpuscular Hemoglobin Concent 31.1L, Red Cell Distribution Width 17.0H, P latelet Count 277, Mean Platelet Volume 11.4H, Neutrophils (%) (Auto) , Lymphocytes (%) (Auto) , Monocytes (%) (Auto) , Eosinophils (%) (Auto) , Basophils (%) (Auto) , Differential Total Cells Counted 100, Neutrophils % (Man ual) 90H, Lymphocytes % (Manual) 7L, Monocytes % (Manual) 2, Eosinophils % (Manual) 0, Basophils % (Manual) 1, Band Neutrophils 0, Platelet Estimate Adequate, Platelet Morphology Normal, Hypochromasia 1+, Anisocytosis 1+, Sodium Level 138, Potassium Level 3.9, Chloride Level 100, Carbon Dioxide Level 26, Anion Gap 12, Blood Urea Nitrogen 52H, Creatinine 3.2H, Estimat Glomerular Filtration Rate 17.2, Glucose Level 234H, Hemoglobin A1c 7.1H, Uric Acid 5.0, Calcium Level 8.5, Phosphorus Level 4.8, Magnesium Level 1.5L, Iron Level 10L, Total Iron Binding Capacity 180L, Percent Iron Saturation 6L, Unsaturated Iron Binding 170, Ferritin 224, Total Bilirubin 0.5, Direct Bilirubin 0.2, Gamma Glut amyl Transpeptidase 15, Aspartate Amino Transf (AST/SGOT) 33, Alanine Aminotransferase (ALT/SGPT) 13, Alkaline Phosphatase 74, Ammonia < 10L, Total Creatine Kinase 485H, Troponin I 0.435H, C-Reactive Protein, Quantitative 26.0H, Pro-B-Type Natriuretic Peptide 50318F, Total Protein 7.8, Albumin 2.8L, Globulin 5.0, Albumin/Globulin Ratio 0.6L, Triglycerides Level 76, Cholesterol Level 85, LDL Cholesterol 35, HDL Cholesterol 24L, Cholesterol/HDL Ratio 3.5, Vitamin B12 Level 552, Folate 17.3, Thyroid Stimulating Hormone (TSH) 0.091L 04/30/20 10:01: Arterial Blood pH 7.434, Arterial Blood Partial Pressure CO2 34.9L, Arterial Blood Partial Pressure O2 69.0L, Arterial Blood HCO3 22.9, Arterial Blood Oxygen Saturation 94.2L, Arterial Blood Base Excess -1.0, Hardeep Test Positive Current Medications Medications (Trade) Dose Ordered Sig/Adria Route PRN Reason Start Time Stop Time Status Last Admin Dose Admin Acetaminophen (Tylenol) 650 mg Q4H PRN ORAL Temp >100.5 04/29/20 14:00 05/29/20 13:59 04/30/20 09:55 Albuterol/ Ipratropium (Combivent Respimat) 1 puff Q4H PRN INH Shortness of Breath 04/29/20 14:00 05/29/20 13:59 Dexamethasone Sodium Phosphate (Decadron 10mg/ ml Inj) 6 mg DAILY IV 04/30/20 09:00 05/08/20 09:01 04/30/20 09:45 Dextrose (Dextrose 50%) 25 ml Q30M PRN IV Hypoglycemia 04/29/20 14:00 07/28/20 13:59 Dextrose (Dextrose 50%) 50 ml Q30M PRN IV Hypoglycemia 04/29/20 14:00 07/28/20 13:59 Heparin Sodium (Porcine) (Heparin 5000 units/ml) 5,000 units EVERY 12 HOURS SUBQ 04/29/20 21:00 06/13/20 20:59 04/30/20 09:43 Lorazepam (Ativan 2mg/ml 1ml) 2 mg Q2H PRN IV For Anxiety 04/29/20 14:00 05/06/20 13:59 Meropenem 500 mg/ Sodium Chloride 55 ml @ 110 mls/hr Q12HR IVPB 04/30/20 09:00 05/05/20 08:59 04/30/20 12:34 Ondansetron HCl (Zofran) 4 mg Q6H PRN IVP Nausea & Vomiting 04/29/20 14:00 05/29/20 13:59 Pantoprazole (Protonix) 40 mg EVERY 12 HOURS IVP 04/29/20 21:00 05/29/20 20:59 04/30/20 09:44 Polyethylene Glycol (Miralax) 17 gm DAILYPRN PRN ORAL Constipation 04/29/20 14:00 05/29/20 13:59 Sodium Chloride 1,000 ml @ 100 mls/hr Q10H IV 04/29/20 17:00 05/29/20 16:59 04/30/20 11:48 Assessment/Plan Problems: (1) 2019 novel coronavirus disease (COVID-19) (2) Gram-negative bacteremia (3) Sepsis (4) Atrial fibrillation, rapid (5) Diabetes mellitus (6) History of DVT (deep vein thrombosis) (7) Morbid obesity Assessment/Plan iv abx, check sensitivity of GNR in blood titrate fio2 to sat of 92% respiratory treatment keep in monitored bed sliding scale dvt prophylaxis Bandar Brownlee MD Apr 30, 2020 17:23
[2020-04-30 20:00] VITALS: BP 105/80
[2020-04-30] MEDS ORDERED: Nitroglycerin Subl 0.4mg tab SL PRN (22:45)
[2020-04-30] MEDS ORDERED: traMADol 50mg tab ORAL PRN (22:45)
[2020-04-30 22:56] VITALS: BP 105/76
--- NOTE | 2020-04-30 23:30 | History and Physical Report ---
DATE OF ADMISSION: 04/29/2020 CHIEF COMPLAINT: Shortness of breath. HISTORY OF PRESENT ILLNESS: This 74-year-old female with past medical history significant for diabetes type 2, hypertension, chronic atrial fibrillation on anticoagulation, coronary artery disease with prior history of myocardial infarction, congestive heart failure, hypothyroidism, morbid obesity, chronic bilateral lower extremity lymphedema, chronic kidney disease, dyslipidemia, rheumatoid arthritis, and iron deficiency anemia, who presented to the hospital from [facility] after it was noted that the patient has shortness of breath and cough. The patient was noted to be hypoxemic on room air by EMS. Subsequently, the patient was placed on 15 liters of oxygen and non-rebreather, and the patient's saturation 90%. Shortly after initial evaluation in the emergency department, the patient was admitted to the hospital with COVID-19 pneumonia with acute hypoxemic respiratory failure. PAST MEDICAL HISTORY/PAST SURGICAL HISTORY: As above, history of diabetes type 2, hypertension, chronic atrial fibrillation on anticoagulation, coronary artery disease, prior history of myocardial function, congestive heart failure, hypothyroidism, obesity, chronic bilateral lower extremity lymphedema, renal failure, dyslipidemia, rheumatoid arthritis, morbid obesity, and iron deficiency anemia. MEDICATIONS AT HOME: Please refer to medication reconciliation. ALLERGIES: The patient has allergies to codeine. SOCIAL HISTORY: No smoking, alcohol, or drugs at this time. FAMILY HISTORY: Noncontributory. REVIEW OF SYSTEMS: She complained about shortness of breath, weakness, and cough. Complained about fever. Denies any chills or night sweats. Has a productive cough. Denies any chest pain or palpitation. No nausea, vomiting, or diarrhea. No bright red blood per rectum. No loss of consciousness. No fall or head trauma. PHYSICAL EXAMINATION: VITAL SIGNS: On admission, temperature 100.2, pulse of 126, respirations 20, and blood pressure 149/83 on a non-rebreather oxygen. HEAD AND NECK: Pupils are equal and reactive to light. Extraocular movements intact. Neck was supple. No JVD. LUNGS: Good air entry. No wheeze or rales. Decreased in bases. Tachypneic. Coarse breath sounds. HEART: S1, S2. Irregular, tachycardic. No murmur or gallop was appreciated. ABDOMEN: Soft, nondistended, and nontender. Morbidly obese. EXTREMITIES: No cyanosis or clubbing. Chronic lymphedema, bilateral lower extremity. NEUROLOGIC: Cranial nerves II through XII grossly intact. The patient is moving all the extremities. RECTAL: Refused and deferred. GENITOURINARY: Refused and deferred. LABORATORY DATA: On admission, WBC of 24, hemoglobin 10.9, hematocrit 32, platelets 287,000. Sodium 138, potassium 3.9, chloride 100, bicarb 26, BUN 52, creatinine 3.2. Lactic acid of 4.9. Calcium is 9.1. Phosphorus is 1.7. Magnesium 1.2. Alkaline phosphatase is 121. First troponin 0.634. C-reactive protein is 21. ProBNP of 8602. PT of , INR is 4.5, PTT of 47. D-dimer is 0.75. UA - +3 protein, negative glucose, +2 ketones, +4 blood, +3 leukocytes, 5 to 10 rbc, and 40 to 60 wbc. Chest x-ray, cardiomegaly with no acute process. Renal ultrasound is negative for hydronephrosis, left renal cyst with lower pole nonobstructive calculi. ASSESSMENT: 1. Acute hypoxemic respiratory failure. 2. COVID-19 pneumonia. 3. Acute renal failure on chronic renal insufficiency. 4. Gram-negative andreina bacteremia. 5. Acute urinary tract infection with gram-negative rods. 6. Morbid obesity. 7. Chronic atrial fibrillation with rapid ventricular rate. 8. Diabetes type 2. 9. Coronary artery disease with prior history of myocardial infarction. 10. Non-ST elevation myocardial infarction, most likely secondary to demand ischemia. 11. Anemia of chronic kidney disease. 12. History of DVT of lower extremity. 13. Congestive heart failure with reduced ejection fraction. 14. Hypertension. 15. Chronic lymphedema of lower extremity. PLAN: Admit the patient to [facility]. We will start the patient on broad-spectrum antibiotic with meropenem, Decadron IV. We will follow up with the Infectious Disease recommendation, Dr. Keiry Amezquita. Follow up with Dr. Brownlee from Pulmonary and Critical Care and Dr. Pantera Wallace from Nephrology. We will resume [facility] medication. Code status, Full Code. DVT prophylaxis, the patient is already on heparin subcutaneous. We will follow up with urine cultures and laboratory in morning. Aleksandr Vega M.D. DR: CLINT JOB#: [id number] CC:
[2020-05-01] VITALS: BP 131/85
[2020-05-01 04:00] VITALS: BP 128/84
[2020-05-01 06:57] LABS: HEMATOCRIT 27.8 % (37.0-47.0); HEMOGLOBIN 8.9 G/DL (12.0-16.0); MEAN CORPUSCULAR VOLUME 85 FL (80-99); PLATELET COUNT 242 K/UL (150-450); RED BLOOD COUNT 3.28 M/UL (4.20-5.40); RED CELL DISTRIBUTION WIDTH 17.3 % (11.6-14.8)
[2020-05-01 06:58] LABS: INR 6.9 (0.9-1.1)
[2020-05-01 07:05] LABS: WHITE BLOOD COUNT 22.3 K/UL (4.8-10.8)
[2020-05-01 07:43] LABS: ALANINE AMINOTRANSFERASE 21 U/L (12-78); ALBUMIN 3.1 G/DL (3.4-5.0); ALBUMIN/GLOBULIN RATIO 0.6 (1.0-2.7); ALKALINE PHOSPHATASE 84 U/L (46-116); ASPARTATE AMINO TRANSFERASE 31 U/L (15-37); BILIRUBIN,TOTAL 0.4 MG/DL (0.2-1.0); BLOOD UREA NITROGEN 64 mg/dL (7-18); CALCIUM 8.6 MG/DL (8.5-10.1); CHLORIDE 98 MMOL/L (98-107); PHOSPHORUS 3.3 MG/DL (2.5-4.9); POTASSIUM 3.1 MMOL/L (3.5-5.1); SODIUM 136 MMOL/L (136-145)
[2020-05-01 08:00] VITALS: BP 133/81
[2020-05-01 08:35] LABS: CARBON DIOXIDE 25 MMOL/L (21-32)
[2020-05-01] MEDS ORDERED: GlipiZIDE 5mg tab ORAL SCH (09:00)
[2020-05-01] MEDS ORDERED: Vitamin K 10mg in D5W 55ml IVPB ONE (09:00)
[2020-05-01] MEDS: Imdur 30mg tab ORAL SCH (09:50)
[2020-05-01] MEDS: Ascorbic Acid 500mg tab ORAL SCH (09:51)
[2020-05-01] MEDS: Aspirin Baby 81mg ORAL SCH (09:51)
[2020-05-01] MEDS: Pantoprazole Inj IVP SCH (09:51)
[2020-05-01] MEDS: dexAMETHasone 10mg/ml Inj IV SCH (09:51)
[2020-05-01] MEDS ORDERED: VITAMIN D325 MCG PO (10:53)
[2020-05-01] MEDS ORDERED: ACETAMINOPHEN325 M1 ORAL (10:53)
[2020-05-01] MEDS: Meropenem 500 MG in NS 55 ML IVPB SCH (11:07)
[2020-05-01 12:00] VITALS: BP 135/81
--- NOTE | 2020-05-01 12:58 | Pulmonology Progress Note ---
Subjective ROS Limited/Unobtainable: No Interval Events: doing better Allergies: Coded Allergies: CODEINE (Verified Allergy, Unknown, 10/10/19) Objective Last 24 Hour Vital Signs Date Time Temp Pulse Resp B/P (MAP) Pulse Ox O2 Delivery O2 Flow Rate FiO2 05/01/20 12:00 54 05/01/20 12:00 98.1 87 22 135/81 (99) 100 05/01/20 09:50 133/81 05/01/20 09:00 Nasal Cannula 2.0 05/01/20 08:00 102 05/01/20 08:00 97.9 86 22 133/81 (98) 100 05/01/20 04:00 83 05/01/20 04:00 98.1 83 18 128/84 (99) 97 05/01/20 00:00 81 05/01/20 00:00 97.8 81 20 131/85 (100) 98 04/30/20 21:00 Nasal Cannula 2.0 04/30/20 20:00 71 04/30/20 20:00 97.5 88 20 105/80 (88) 100 04/30/20 16:00 98.1 92 20 121/80 (94) 100 04/30/20 16:00 84 Intake and Output 04/30/20 05/01/20 19:00 07:00 Intake Total 455 ml 1580 ml Output Total 450 ml 700 ml Balance 5 ml 880 ml Intake Oral 780 ml IV Total 455 ml 800 ml Output Urine Total 450 ml 700 ml # Voids 1 General Appearance: WD/WN HEENT: normocephalic, atraumatic Respiratory: chest wall non-tender, rhonchi - left, rhonchi - right Cardiovascular: normal peripheral pulses, normal rate, regular rhythm Abdomen: normal bowel sounds, soft, non tender, no organomegaly Genitourinary: normal external genitalia Extremities: no cyanosis Neurologic: certified technician II-XII grossly normal Microbiology Date/Time Source Procedure Growth Status 04/29/20 09:30 Blood Blood Culture - Preliminary Gram Negative Vitaly Resulted 04/29/20 09:15 Rectum VRE Culture - Final Enterococcus Faecalis - Vre Complete 04/29/20 09:15 Rectum Received 04/29/20 09:15 Nasal Nares MRSA Culture - Final NO METHICILLIN RESISTANT STAPH AUREUS... Complete 04/29/20 09:10 Indwelling Cath Urine Culture - Preliminary Gram Negative Vitaly Resulted 04/29/20 09:10 Nasopharynx SARS-CoV-2 RdRp Gene Assay - Final Complete 04/29/20 09:10 Blood Blood Culture - Preliminary Gram Negative Vitaly Resulted Laboratory Tests 05/01/20 03:45: White Blood Count 22.3*H, Red Blood Count 3.28L, Hemoglobin 8.9L, Hematocrit 27.8L, Mean Corpuscular Volume 85, Mean Corpuscular Hemoglobin 27.2, Mean Corpuscular Hemoglobin Concent 32.1, Red Cell Distribution Width 17.3H, Platelet Count 242, Mean Platelet Volume 10.0, Neutrophils (%) (Auto) , Lymphocytes (%) (Auto) , Monocytes (%) (Auto) , Eosinophils (%) (Auto) , Basophils (%) (Auto) , Differential Total Cells Counted 100, Neutrophils % (Manual) 94H, Lymphocytes % (Manual) 3L, Monocytes % (Manual) 1, Eosinophils % (Manual) 0, Basophils % (Manual) 0, Band Neutrophils 2, Platelet Estimate Adequate, Platelet Morphology Normal, Hypochromasia 1+, Anisocytosis 1+, Prothrombin Time 64.9H, Prothromb Time International Ratio 6.9*H, Sodium Level 136, Potassium Level 3.1L, Chloride Level 98, Carbon Dioxide Level 25, Blood Urea Nitrogen 64H, Creatinine 3.0H, Estimat Glomerular Filtration Rate 18.5, Glucose Level 372#H, Calcium Level 8.6, Phosphorus Level 3.3, Magnesium Level 2.1, Total Bilirubin 0.4, Aspartate Amino Transf (AST/SGOT) 31, Alanine Aminotransferase (ALT/SGPT) 21, Alkaline Phosphatase 84, C-Reactive Protein, Quantitative 20.1H, Pro-B-Type Natriuretic Peptide 05596X, Total Protein 8.1, Albumin 3.1L, Globulin 5.0, Albumin/Globulin Ratio 0.6L Current Medications Medications (Trade) Dose Ordered Sig/Adria Route PRN Reason Start Time Stop Time Status Last Admin Dose Admin Acetaminophen (Tylenol) 650 mg Q4H PRN ORAL Temp >100.5 04/29/20 14:00 05/29/20 13:59 04/30/20 09:55 Albuterol/ Ipratropium (Combivent Respimat) 1 puff Q4H PRN INH Shortness of Breath 04/29/20 14:00 05/29/20 13:59 Ascorbic Acid (Vitamin C) 500 mg DAILY ORAL 05/01/20 09:00 05/31/20 08:59 05/01/20 09:51 Aspirin (ASA) 81 mg DAILY ORAL 05/01/20 09:00 06/15/20 08:59 05/01/20 09:51 Dexamethasone Sodium Phosphate (Decadron 10mg/ ml Inj) 6 mg DAILY IV 04/30/20 09:00 05/08/20 09:01 05/01/20 09:51 Dextrose (Dextrose 50%) 25 ml Q30M PRN IV Hypoglycemia 04/29/20 14:00 07/28/20 13:59 Dextrose (Dextrose 50%) 50 ml Q30M PRN IV Hypoglycemia 04/29/20 14:00 07/28/20 13:59 Glipizide (Glucotrol) 5 mg DAILY ORAL 05/01/20 09:00 05/31/20 08:59 05/01/20 09:49 Isosorbide Mononitrate (Imdur) 30 mg DAILY ORAL 05/01/20 09:00 05/31/20 08:59 05/01/20 09:50 Lorazepam (Ativan 2mg/ml 1ml) 2 mg Q2H PRN IV For Anxiety 04/29/20 14:00 05/06/20 13:59 Meropenem 1 gm/ Sodium Chloride 55 ml @ 110 mls/hr Q12HR IVPB 05/01/20 21:00 05/06/20 20:59 Nitroglycerin (Ntg) 0.4 mg Q5MIN X 3 DOSES PRN SL CHEST PAIN 04/30/20 22:45 05/30/20 22:44 Ondansetron HCl (Zofran) 4 mg Q6H PRN IVP Nausea & Vomiting 04/29/20 14:00 05/29/20 13:59 Pantoprazole (Protonix) 40 mg EVERY 12 HOURS IVP 04/29/20 21:00 05/29/20 20:59 05/01/20 09:51 Polyethylene Glycol (Miralax) 17 gm DAILYPRN PRN ORAL Constipation 04/29/20 14:00 05/29/20 13:59 Potassium Chloride (K-Dur) 40 meq ONCE ORAL 05/01/20 15:00 05/01/20 16:30 Sodium Chloride 1,000 ml @ 100 mls/hr Q10H IV 04/29/20 17:00 05/29/20 16:59 05/01/20 09:49 Tramadol HCl (Ultram) 50 mg Q6H PRN ORAL For Pain 04/30/20 22:45 05/07/20 22:44 Warfarin Sodium (Coumadin per pharmacy) 1 ea DAILY PRN MISC Per rx protocol 04/30/20 22:45 05/30/20 22:44 Assessment/Plan Problems: (1) 2019 novel coronavirus disease (COVID-19) (2) Bacteremia due to Gram-negative bacteria (3) Sepsis (4) Atrial fibrillation, rapid (5) Diabetes mellitus (6) History of DVT (deep vein thrombosis) (7) Morbid obesity Assessment/Plan afebrile, wbc still high iv abx, check sensitivity of GNR in blood titrate fio2 to sat of 92% respiratory treatment keep in monitored bed sliding scale dvt prophylaxis Bandar Brownlee MD May 01, 2020 12:58
--- NOTE | 2020-05-01 13:28 | Internal Med Progress Note ---
Subjective Physician Name Aleksandr Vega Attending Physician Aleksandr Vega MD Current Medications Medications (Trade) Dose Ordered Sig/Adria Route PRN Reason Start Time Stop Time Status Last Admin Dose Admin Acetaminophen (Tylenol) 650 mg Q4H PRN ORAL Temp >100.5 04/29/20 14:00 05/29/20 13:59 04/30/20 09:55 Albuterol/ Ipratropium (Combivent Respimat) 1 puff Q4H PRN INH Shortness of Breath 04/29/20 14:00 05/29/20 13:59 Ascorbic Acid (Vitamin C) 500 mg DAILY ORAL 05/01/20 09:00 05/31/20 08:59 05/01/20 09:51 Aspirin (ASA) 81 mg DAILY ORAL 05/01/20 09:00 06/15/20 08:59 05/01/20 09:51 Dexamethasone Sodium Phosphate (Decadron 10mg/ ml Inj) 6 mg DAILY IV 04/30/20 09:00 05/08/20 09:01 05/01/20 09:51 Dextrose (Dextrose 50%) 25 ml Q30M PRN IV Hypoglycemia 04/29/20 14:00 07/28/20 13:59 Dextrose (Dextrose 50%) 50 ml Q30M PRN IV Hypoglycemia 04/29/20 14:00 07/28/20 13:59 Glipizide (Glucotrol) 5 mg DAILY ORAL 05/01/20 09:00 05/31/20 08:59 05/01/20 09:49 Isosorbide Mononitrate (Imdur) 30 mg DAILY ORAL 05/01/20 09:00 05/31/20 08:59 05/01/20 09:50 Lorazepam (Ativan 2mg/ml 1ml) 2 mg Q2H PRN IV For Anxiety 04/29/20 14:00 05/06/20 13:59 Meropenem 1 gm/ Sodium Chloride 55 ml @ 110 mls/hr Q12HR IVPB 05/01/20 21:00 05/06/20 20:59 Nitroglycerin (Ntg) 0.4 mg Q5MIN X 3 DOSES PRN SL CHEST PAIN 04/30/20 22:45 05/30/20 22:44 Ondansetron HCl (Zofran) 4 mg Q6H PRN IVP Nausea & Vomiting 04/29/20 14:00 05/29/20 13:59 Pantoprazole (Protonix) 40 mg EVERY 12 HOURS IVP 04/29/20 21:00 05/29/20 20:59 05/01/20 09:51 Polyethylene Glycol (Miralax) 17 gm DAILYPRN PRN ORAL Constipation 04/29/20 14:00 05/29/20 13:59 Potassium Chloride (K-Dur) 40 meq ONCE ORAL 05/01/20 15:00 05/01/20 16:30 Sodium Chloride 1,000 ml @ 100 mls/hr Q10H IV 04/29/20 17:00 05/29/20 16:59 05/01/20 09:49 Tramadol HCl (Ultram) 50 mg Q6H PRN ORAL For Pain 04/30/20 22:45 05/07/20 22:44 Warfarin Sodium (Coumadin per pharmacy) 1 ea DAILY PRN MISC Per rx protocol 04/30/20 22:45 05/30/20 22:44 Allergies: Coded Allergies: CODEINE (Verified Allergy, Unknown, 10/10/19) Subjective awake, alert, responsive, denies any chest pain, less shortness of breath, WBC: 22.3. Objective Last Vital Signs Date Time Temp Pulse Resp B/P (MAP) Pulse Ox O2 Delivery O2 Flow Rate FiO2 05/01/20 12:00 54 05/01/20 12:00 98.1 22 135/81 (99) 100 05/01/20 09:00 Nasal Cannula 2.0 04/29/20 15:28 30 Laboratory Tests Test 05/01/20 03:45 White Blood Count 22.3 K/UL (4.8-10.8) *H Red Blood Count 3.28 M/UL (4.20-5.40) L Hemoglobin 8.9 G/DL (12.0-16.0) L Hematocrit 27.8 % (37.0-47.0) L Mean Corpuscular Volume 85 FL (80-99) Mean Corpuscular Hemoglobin 27.2 PG (27.0-31.0) Mean Corpuscular Hemoglobin Concent 32.1 G/DL (32.0-36.0) Red Cell Distribution Width 17.3 % (11.6-14.8) H Platelet Count 242 K/UL (150-450) Mean Platelet Volume 10.0 FL (6.5-10.1) Neutrophils (%) (Auto) % (45.0-75.0) Lymphocytes (%) (Auto) % (20.0-45.0) Monocytes (%) (Auto) % (1.0-10.0) Eosinophils (%) (Auto) % (0.0-3.0) Basophils (%) (Auto) % (0.0-2.0) Differential Total Cells Counted 100 Neutrophils % (Manual) 94 % (45-75) H Lymphocytes % (Manual) 3 % (20-45) L Monocytes % (Manual) 1 % (1-10) Eosinophils % (Manual) 0 % (0-3) Basophils % (Manual) 0 % (0-2) Band Neutrophils 2 % (0-8) Platelet Estimate Adequate Platelet Morphology Normal Hypochromasia 1+ Anisocytosis 1+ Prothrombin Time 64.9 SEC (9.30-11.50) H Prothromb Time International Ratio 6.9 (0.9-1.1) *H Sodium Level 136 MMOL/L (136-145) Potassium Level 3.1 MMOL/L (3.5-5.1) L Chloride Level 98 MMOL/L (98-107) Carbon Dioxide Level 25 MMOL/L (21-32) Blood Urea Nitrogen 64 mg/dL (7-18) H Creatinine 3.0 MG/DL (0.55-1.30) H Estimat Glomerular Filtration Rate 18.5 mL/min (>60) Glucose Level 372 MG/DL (74-106) #H Calcium Level 8.6 MG/DL (8.5-10.1) Phosphorus Level 3.3 MG/DL (2.5-4.9) Magnesium Level 2.1 MG/DL (1.8-2.4) Total Bilirubin 0.4 MG/DL (0.2-1.0) Aspartate Amino Transf (AST/SGOT) 31 U/L (15-37) Alanine Aminotransferase (ALT/SGPT) 21 U/L (12-78) Alkaline Phosphatase 84 U/L (46-116) C-Reactive Protein, Quantitative 20.1 mg/dL (0.00-0.90) H Pro-B-Type Natriuretic Peptide 33428 pg/mL (0-125) H Total Protein 8.1 G/DL (6.4-8.2) Albumin 3.1 G/DL (3.4-5.0) L Globulin 5.0 g/dL Albumin/Globulin Ratio 0.6 (1.0-2.7) L Microbiology Date/Time Source Procedure Growth Status 04/29/20 09:30 Blood Blood Culture - Preliminary Gram Negative Vitaly Resulted 04/29/20 09:15 Rectum VRE Culture - Final Enterococcus Faecalis - Vre Complete 04/29/20 09:15 Rectum Received 04/29/20 09:15 Nasal Nares MRSA Culture - Final NO METHICILLIN RESISTANT STAPH AUREUS... Complete 04/29/20 09:10 Indwelling Cath Urine Culture - Preliminary Gram Negative Vitaly Resulted 04/29/20 09:10 Nasopharynx SARS-CoV-2 RdRp Gene Assay - Final Complete 04/29/20 09:10 Blood Blood Culture - Preliminary Gram Negative Vitaly Resulted Intake and Output 04/30/20 05/01/20 19:00 07:00 Intake Total 455 ml 1580 ml Output Total 450 ml 700 ml Balance 5 ml 880 ml Intake Oral 780 ml IV Total 455 ml 800 ml Output Urine Total 450 ml 700 ml # Voids 1 Objective General: No acute distress, awake and alert HEENT: NCAT, sclera anicteric, PERRL, EOMI. Neck: Supple, no significant jugular venous distention, Lungs: fair inspiratory effort, decreased air at the bases, no Wheeze or Rales. Heart: Regular rate and rhythm, normal S1/S2, no murmurs/ Abdomen: soft, nontender, nondistended. Normoactive bowel sounds, morbid obesity. / Rectal: Refused and deferred. Extremities: No Cyanosis or clubbing, decreased edema bilateral lower extremities. Neuro: A&O x 3, Able to move all extremities Skin: warm, no rashes or lesions Psych: Normal mood and affect Assessment/Plan Assessment/Plan 1. Acute hypoxemic respiratory failure. 2. COVID-19 pneumonia. 3. Acute renal failure on chronic renal insufficiency. 4. E. COli Sepsis / Bacteremia. 5. Acute E. Coli urinary tract infection. 6. Morbid obesity. 7. Chronic atrial fibrillation with rapid ventricular rate. 8. Diabetes type 2. 9. Coronary artery disease with prior history of myocardial infarction. 10. Non-ST elevation myocardial infarction, most likely secondary to demand ischemia. 11. Anemia of chronic kidney disease. 12. History of DVT of lower extremity. 13. Chronic Congestive heart failure with reduced ejection fraction. 14. Hypertension. 15. Chronic lymphedema of lower extremity. PLAN: transfer patient to telemetry. Antibiotic: DC meropenem, start Rocephin IV, Decadron IV. Dr. Keiyr Amezquita. from Infectious Disease. Dr. Brownlee from Pulmonary and Critical Care Dr. Pantera Wallace from Nephrology. Code status: Full Code. DVT prophylaxis: Coumadin follow-up with cultures and laboratory in the morning. CODE STATUS: Full code. Aleksandr Vega MD May 01, 2020 13:28
--- NOTE | 2020-05-01 14:20 | Cardiology Progress Note ---
Assessment/Plan Assessment/Plan [id number] wath sat now good on only 2 lit repat treo likey abn due to renal insuf echo was done 10/2019 ef was ok abx, anticaog decreased ivf rate will hold off on repeating echo give acute covid infection and to avoid transmission to staff (3 other tech out with acute covid infection as well ) Objective Last 24 Hour Vital Signs Date Time Temp Pulse Resp B/P (MAP) Pulse Ox O2 Delivery O2 Flow Rate FiO2 05/01/20 12:00 54 05/01/20 12:00 98.1 87 22 135/81 (99) 100 05/01/20 09:50 133/81 05/01/20 09:00 Nasal Cannula 2.0 05/01/20 08:00 102 05/01/20 08:00 97.9 86 22 133/81 (98) 100 05/01/20 04:00 83 05/01/20 04:00 98.1 83 18 128/84 (99) 97 05/01/20 00:00 81 05/01/20 00:00 97.8 81 20 131/85 (100) 98 04/30/20 21:00 Nasal Cannula 2.0 04/30/20 20:00 71 04/30/20 20:00 97.5 88 20 105/80 (88) 100 04/30/20 16:00 98.1 92 20 121/80 (94) 100 04/30/20 16:00 84 Intake and Output 04/30/20 05/01/20 19:00 07:00 Intake Total 455 ml 1580 ml Output Total 450 ml 700 ml Balance 5 ml 880 ml Intake Oral 780 ml IV Total 455 ml 800 ml Output Urine Total 450 ml 700 ml # Voids 1 Laboratory Tests Test 05/01/20 03:45 White Blood Count 22.3 K/UL (4.8-10.8) *H Red Blood Count 3.28 M/UL (4.20-5.40) L Hemoglobin 8.9 G/DL (12.0-16.0) L Hematocrit 27.8 % (37.0-47.0) L Mean Corpuscular Volume 85 FL (80-99) Mean Corpuscular Hemoglobin 27.2 PG (27.0-31.0) Mean Corpuscular Hemoglobin Concent 32.1 G/DL (32.0-36.0) Red Cell Distribution Width 17.3 % (11.6-14.8) H Platelet Count 242 K/UL (150-450) Mean Platelet Volume 10.0 FL (6.5-10.1) Neutrophils (%) (Auto) % (45.0-75.0) Lymphocytes (%) (Auto) % (20.0-45.0) Monocytes (%) (Auto) % (1.0-10.0) Eosinophils (%) (Auto) % (0.0-3.0) Basophils (%) (Auto) % (0.0-2.0) Differential Total Cells Counted 100 Neutrophils % (Manual) 94 % (45-75) H Lymphocytes % (Manual) 3 % (20-45) L Monocytes % (Manual) 1 % (1-10) Eosinophils % (Manual) 0 % (0-3) Basophils % (Manual) 0 % (0-2) Band Neutrophils 2 % (0-8) Platelet Estimate Adequate Platelet Morphology Normal Hypochromasia 1+ Anisocytosis 1+ Prothrombin Time 64.9 SEC (9.30-11.50) H Prothromb Time International Ratio 6.9 (0.9-1.1) *H Sodium Level 136 MMOL/L (136-145) Potassium Level 3.1 MMOL/L (3.5-5.1) L Chloride Level 98 MMOL/L (98-107) Carbon Dioxide Level 25 MMOL/L (21-32) Blood Urea Nitrogen 64 mg/dL (7-18) H Creatinine 3.0 MG/DL (0.55-1.30) H Estimat Glomerular Filtration Rate 18.5 mL/min (>60) Glucose Level 372 MG/DL (74-106) #H Calcium Level 8.6 MG/DL (8.5-10.1) Phosphorus Level 3.3 MG/DL (2.5-4.9) Magnesium Level 2.1 MG/DL (1.8-2.4) Total Bilirubin 0.4 MG/DL (0.2-1.0) Aspartate Amino Transf (AST/SGOT) 31 U/L (15-37) Alanine Aminotransferase (ALT/SGPT) 21 U/L (12-78) Alkaline Phosphatase 84 U/L (46-116) C-Reactive Protein, Quantitative 20.1 mg/dL (0.00-0.90) H Pro-B-Type Natriuretic Peptide 21299 pg/mL (0-125) H Total Protein 8.1 G/DL (6.4-8.2) Albumin 3.1 G/DL (3.4-5.0) L Globulin 5.0 g/dL Albumin/Globulin Ratio 0.6 (1.0-2.7) L Microbiology Date/Time Source Procedure Growth Status 04/29/20 09:30 Blood Blood Culture - Preliminary Gram Negative Vitaly Resulted 04/29/20 09:15 Rectum VRE Culture - Final Enterococcus Faecalis - Vre Complete 04/29/20 09:15 Rectum Received 04/29/20 09:15 Nasal Nares MRSA Culture - Final NO METHICILLIN RESISTANT STAPH AUREUS... Complete 04/29/20 09:10 Indwelling Cath Urine Culture - Preliminary Gram Negative Vitaly Resulted 04/29/20 09:10 Nasopharynx SARS-CoV-2 RdRp Gene Assay - Final Complete 04/29/20 09:10 Blood Blood Culture - Preliminary Gram Negative Vitaly Resulted Arun Barker MD May 01, 2020 14:20
--- NOTE | 2020-05-01 14:41 | Nephrology Progress Note ---
Assessment/Plan Problem List: (1) Renal failure (ARF), acute on chronic (2) Acute respiratory failure (3) Atrial fibrillation, rapid (4) Morbid obesity (5) Diabetes mellitus (6) NSTEMI (non-ST elevated myocardial infarction) Assessment 74-year-old female presents with acute respiratory failure she is morbidly obese Acute renal failure Underlying chronic kidney disease Chronic atrial fibrillation Diabetes mellitus/nephropathy History of DVT Sepsis Non-STEMI [place] Morbid obesity Anemia Plan May 01: Serum creatinine 3. INR elevated. Hemoglobin lower. Continue normal saline 75 cc an hour. Starting Starlix for blood sugar control. Kidney ultrasound and 2D echocardiogram results noted. Per orders. Potassium supplement given. Continue to monitor renal parameters and electrolytes. April 30: We will start on renal diet medium carbs. Increase IV fluid to 100 cc an hour. 2D echocardiogram and kidney ultrasound pending. Continue to monitor renal parameters. Avoid nephrotoxic's. Keep the blood pressure and blood sugar in check. Previously: Anne catheter Urine studies Monitor electrolytes Kidney ultrasound Avoid nephrotoxic's 2D echocardiogram Albumin bolus Per orders Subjective ROS Limited/Unobtainable: No Constitutional: Reports: malaise, weakness Objective Objective Last 24 Hour Vital Signs Date Time Temp Pulse Resp B/P (MAP) Pulse Ox O2 Delivery O2 Flow Rate FiO2 05/01/20 12:00 54 05/01/20 12:00 98.1 87 22 135/81 (99) 100 05/01/20 09:50 133/81 05/01/20 09:00 Nasal Cannula 2.0 05/01/20 08:00 102 05/01/20 08:00 97.9 86 22 133/81 (98) 100 05/01/20 04:00 83 05/01/20 04:00 98.1 83 18 128/84 (99) 97 05/01/20 00:00 81 05/01/20 00:00 97.8 81 20 131/85 (100) 98 04/30/20 21:00 Nasal Cannula 2.0 04/30/20 20:00 71 04/30/20 20:00 97.5 88 20 105/80 (88) 100 04/30/20 16:00 98.1 92 20 121/80 (94) 100 04/30/20 16:00 84 Intake and Output 04/30/20 05/01/20 19:00 07:00 Intake Total 455 ml 1580 ml Output Total 450 ml 700 ml Balance 5 ml 880 ml Intake Oral 780 ml IV Total 455 ml 800 ml Output Urine Total 450 ml 700 ml # Voids 1 Current Medications Medications (Trade) Dose Ordered Sig/Adria Route PRN Reason Start Time Stop Time Status Last Admin Dose Admin Acetaminophen (Tylenol) 650 mg Q4H PRN ORAL Temp >100.5 04/29/20 14:00 05/29/20 13:59 04/30/20 09:55 Albuterol/ Ipratropium (Combivent Respimat) 1 puff Q4H PRN INH Shortness of Breath 04/29/20 14:00 05/29/20 13:59 Ascorbic Acid (Vitamin C) 500 mg DAILY ORAL 05/01/20 09:00 05/31/20 08:59 05/01/20 09:51 Aspirin (ASA) 81 mg DAILY ORAL 05/01/20 09:00 06/15/20 08:59 05/01/20 09:51 Dexamethasone Sodium Phosphate (Decadron 10mg/ ml Inj) 6 mg DAILY IV 04/30/20 09:00 05/08/20 09:01 05/01/20 09:51 Dextrose (Dextrose 50%) 25 ml Q30M PRN IV Hypoglycemia 04/29/20 14:00 07/28/20 13:59 Dextrose (Dextrose 50%) 50 ml Q30M PRN IV Hypoglycemia 04/29/20 14:00 07/28/20 13:59 Glipizide (Glucotrol) 5 mg DAILY ORAL 05/01/20 09:00 05/31/20 08:59 05/01/20 09:49 Isosorbide Mononitrate (Imdur) 30 mg DAILY ORAL 05/01/20 09:00 05/31/20 08:59 05/01/20 09:50 Lorazepam (Ativan 2mg/ml 1ml) 2 mg Q2H PRN IV For Anxiety 04/29/20 14:00 05/06/20 13:59 Meropenem 1 gm/ Sodium Chloride 55 ml @ 110 mls/hr Q12HR IVPB 05/01/20 21:00 05/06/20 20:59 Nitroglycerin (Ntg) 0.4 mg Q5MIN X 3 DOSES PRN SL CHEST PAIN 04/30/20 22:45 05/30/20 22:44 Ondansetron HCl (Zofran) 4 mg Q6H PRN IVP Nausea & Vomiting 04/29/20 14:00 05/29/20 13:59 Pantoprazole (Protonix) 40 mg EVERY 12 HOURS IVP 04/29/20 21:00 05/29/20 20:59 05/01/20 09:51 Polyethylene Glycol (Miralax) 17 gm DAILYPRN PRN ORAL Constipation 04/29/20 14:00 05/29/20 13:59 Potassium Chloride (K-Dur) 40 meq ONCE ORAL 05/01/20 15:00 05/01/20 16:30 05/01/20 14:35 Potassium Chloride (K-Dur) 40 meq TWICE A DAY ORAL 05/01/20 18:00 07/30/20 17:59 Sodium Chloride 1,000 ml @ 75 mls/hr [id number] IV 04/29/20 17:00 05/29/20 16:59 05/01/20 09:49 Tramadol HCl (Ultram) 50 mg Q6H PRN ORAL For Pain 04/30/20 22:45 05/07/20 22:44 Warfarin Sodium (Coumadin per pharmacy) 1 ea DAILY PRN MISC Per rx protocol 04/30/20 22:45 05/30/20 22:44 Laboratory Tests 05/01/20 03:45: White Blood Count 22.3*H, Red Blood Count 3.28L, Hemoglobin 8.9L, Hematocrit 27.8L, Mean Corpuscular Volume 85, Mean Corpuscular Hemoglobin 27.2, Mean Corpuscular Hemoglobin Concent 32.1, Red Cell Distribution Width 17.3H, Platelet Count 242, Mean Platelet Volume 10.0, Neutrophils (%) (Auto) , Lymphocytes (%) (Auto) , Monocytes (%) (Auto) , Eosinophils (%) (Auto) , Basophils (%) (Auto) , Differential Total Cells Counted 100, Neutrophils % (Manual) 94H, Lymphocytes % (Manual) 3L, Monocytes % (Manual) 1, Eosinophils % (Manual) 0, Basophils % (Manual) 0, Band Neutrophils 2, Platelet Estimate Adequate, Platelet Morphology Normal, Hypochromasia 1+, Anisocytosis 1+, Prothrombin Time 64.9H, Prothromb Time International Ratio 6.9*H, Sodium Level 136, Potassium Level 3.1L, Chloride Level 98, Carbon Dioxide Level 25, Blood Urea Nitrogen 64H, Creatinine 3.0H, Estimat Glomerular Filtration Rate 18.5, Glucose Level 372#H, Calcium Level 8.6, Phosphorus Level 3.3, Magnesium Level 2.1, Total Bilirubin 0.4, Aspartate Amino Transf (AST/SGOT) 31, Alanine Aminotransferase (ALT/SGPT) 21, Alkaline Phosphatase 84, C-Reactive Protein, Quantitative 20.1H, Pro-B-Type Natriuretic Peptide 55555G, Total Protein 8.1, Albumin 3.1L, Globulin 5.0, Albumin/Globulin Ratio 0.6L Height (Feet): 5 Height (Inches): 6.00 Weight (Pounds): 350 General Appearance: no apparent distress Respiratory/Chest: decreased breath sounds Abdomen: distended Pantera Wallace MD May 01, 2020 14:41
--- NOTE | 2020-05-01 15:30 | Consultation ---
DATE OF CONSULTATION: 05/01/2020 CARDIOLOGY CONSULTATION CONSULTING PHYSICIAN: Arun Barker MD REFERRING PHYSICIAN: Aleksandr Vega MD and Bandar Brownlee MD REASON FOR REFERRAL: Atrial fibrillation and PVCs. HISTORY OF PRESENT ILLNESS: This is a 74-year-old female who is known to me from one prior hospitalization here at [facility] back in October. Patient apparently was readmitted to the hospital through the emergency room on 04/29/2020 and may be brought from convalescent facility by ambulance because of shortness of breath. Patient was noted to be hypoxic on room air. Emergency Medical Services placed on 15 L nasal cannula. Saturation improved to 90%, but only 90% and the patient was brought to the emergency room, admitted to the hospital, was noted to have atrial fibrillation, which was permanent, some possibility of premature ventricular complexes are noted. This consultation requested. The patient's history apparently is limited secondary to medical condition. The patient has been tested positive for COVID-19 as opposed to the last time she was here, which was negative at that time. Therefore, information is obtained purely from review of the patient's chart. She has been seen by several doctors here in the hospital and according to the nursing staff who have been following her, she was felt to be stable, sleeping, blood pressure in the 120s over 80s, and 97% saturation on 2 liters nasal cannula, and even as of last night she was breathing unlabored. No indication of respiratory distress per the emergency room staff. No complaints of pain. Anne catheter draining yellow urine. She was watching TV and was alert and oriented subsequently. PAST MEDICAL HISTORY: She was last hospitalized here at [place] because of severe E. coli sepsis with urinary tract infection and bacteremia and pneumonia. At that time, she was COVID negative. She had some episodes of congestive heart failure, right heart failure, non ST-elevation myocardial infarction, toxic metabolic encephalopathy, acute kidney failure, acute on chronic renal failure, lactic acidosis, morbid obesity, systemic hypertension, diabetes mellitus type 2, permanent atrial fibrillation, coagulopathy secondary to Coumadin, right ventricular hypokinesis, iron deficiency anemia, chronic lymphedema of the lower extremities, and hyperlipidemia. She does have a history of deep venous thrombosis previously as well, 3 abdominal hernias, thyroid disease, and pyelonephritis. ALLERGIES: She is allergic to codeine. SOCIAL HISTORY: No alcohol intake. She used to live alone previously, but since been in the hospital back in October has been in [facility] . No tobacco use. REVIEW OF SYSTEMS: Not obtainable. PHYSICAL EXAMINATION: I did not see the patient in light of the fact that she is COVID positive acutely. According to Dr. Brownlee who saw the patient: GENERAL: The patient was not felt to be in any respiratory distress. LUNGS: Rhonchi were noted on the left side as well as the right side. CARDIAC: Regular rate. Normal peripheral pulses are felt. Patient had a regular rate. ABDOMEN: Soft, nontender. EXTREMITIES: There was no cyanosis or edema. LABORATORY VALUES: Telemetry data first of all shows atrial fibrillation. There are some what appears to be likely premature versus aberrant conduction beats, but they are not very frequent on telemetry. Her electrocardiogram shows ventricular rate of 133, possibly flutter, although there is a poor quality tracing and delay in R-wave progression and leftward axis left axis deviation is noted. Her blood tests show sodium 136, potassium 3.1, chloride 98, bicarb 25, BUN 64, creatinine 3.0, glucose of 372. A1c of 7.1. Liver function tests were normal today. ProBNP was down to 15,000 from 20,000 yesterday that was up from 8000 the day before. She has had levels up to 27,000 in her last hospitalization. Her glucose of 372. Troponin of 0.435. These are relatively the same levels that she has been running around for a long time, but she has never had normal troponins on her previous nor present hospitalization. Her coags, INR was 6.9 today, up from 4.5 two days ago. D-dimer was 0.75. White count is up to 22.3. She has been at the time of admission 24.9, hemoglobin 8.9, and platelet count of 242, 94 polys, 3% lymphocytes. Sodium 136, potassium 3.1, chloride 98, bicarb 25, BUN of 64, creatinine 3.0. Her chest x-ray done yesterday shows slight worsening of the bilateral interstitial and airspace infiltrates. Her renal ultrasound negative for hydronephrosis. Chest x-ray at the time of admission on 04/29/2020 showed cardiomegaly. ASSESSMENT AND PLAN: 1. Acute COVID-19 infection. 2. Gram-negative andreina bacteremia. 3. Gram-negative urinary tract infection. 4. Permanent atrial fibrillation. 5. Coagulopathy secondary to Coumadin and antibiotic interaction. 6. Renal insufficiency. 7. Diabetes mellitus. 8. PVCs versus aberrant conduction. This patient was seen in cardiac consultation. The patient had some cardiac enzymes checked at the time of her admission, minimally abnormal cardiac enzymes on 2 separate occasions and really did not have a peak or timur. That level will be rechecked despite the fact that she has had a heart rate documented on her EKGs of 130 that possibly likely that the cardiac enzyme abnormality could be related to the renal insufficiency. Her oxygenation appears to be adequate. She will be monitored for need for diuretics. Her last echocardiogram that was performed in October of this year showed to be ejection fraction 55% and [id number] mitral regurgitation at that time and moderate tricuspid regurgitation with pulmonary pressures in the 50s. Her Coumadin dose is being adjusted by the pharmacy. Patient does not require heparin for DVT prophylaxis in light of that. She is getting intravenous antibiotics. We will decrease the IV fluids for the time being. Avoiding performing an echocardiogram in the setting of an acute infection to prevent transmission of the virus to the hospital staff. Her other medications will be continued for the time being. I will follow the patient along with you. Arun Barker M.D. DR: SALVATORE JOB#: [id number] CC:
[2020-05-01 16:00] VITALS: BP 123/76
[2020-05-01] MEDS: NovoLOG Insulin Flexpen SUBQ SCH ×2 (17:00→21:51)
[2020-05-01] MEDS: Docusate 100mg cap ORAL SCH (18:00)
[2020-05-01] MEDS ORDERED: NovoLOG Insulin Flexpen SUBQ SCH (18:49)
[2020-05-01 20:00] VITALS: BP 135/100
[2020-05-01] MEDS ORDERED: Meropenem 1gm in NS 55ml IVPB SCH (21:00)
[2020-05-01] MEDS: cefTRIAXone 2 GM in D5W 55 ML IVPB SCH (21:39)
[2020-05-02] VITALS: BP 141/88
[2020-05-02 04:00] VITALS: BP 143/96
[2020-05-02] MEDS: NovoLOG Insulin Flexpen SUBQ SCH ×4 (06:40→21:25)
[2020-05-02 08:00] VITALS: BP 145/97
[2020-05-02] MEDS: dexAMETHasone 10mg/ml Inj IV SCH (09:31)
[2020-05-02] MEDS: Ascorbic Acid 500mg tab ORAL SCH (09:31)
[2020-05-02] MEDS: Imdur 30mg tab ORAL SCH (09:31)
[2020-05-02] MEDS: Docusate 100mg cap ORAL SCH ×3 (09:32→17:02)
[2020-05-02] MEDS: Aspirin Baby 81mg ORAL SCH (09:32)
[2020-05-02 09:39] LABS: HEMOGLOBIN 9.4 G/DL (12.0-16.0); MEAN CORPUSCULAR VOLUME 83 FL (80-99); PLATELET COUNT 273 K/UL (150-450); RED BLOOD COUNT 3.48 M/UL (4.20-5.40); RED CELL DISTRIBUTION WIDTH 16.8 % (11.6-14.8); WHITE BLOOD COUNT 12.6 K/UL (4.8-10.8)
[2020-05-02 09:44] LABS: INR 1.3 (0.9-1.1)
[2020-05-02 10:07] LABS: CREATINE KINASE 41 U/L (26-308); PHOSPHORUS 3.2 MG/DL (2.5-4.9)
[2020-05-02 10:38] LABS: ALBUMIN/GLOBULIN RATIO 0.7 (1.0-2.7); BILIRUBIN,TOTAL 0.4 MG/DL (0.2-1.0); CALCIUM 8.9 MG/DL (8.5-10.1); CREATININE 2.8 MG/DL (0.55-1.30); POTASSIUM 4.1 MMOL/L (3.5-5.1)
--- NOTE | 2020-05-02 11:01 | Infectious Diseases Prog Note ---
Assessment/Plan 74yo F with: Sepsis E.coli bacteremia COVID pna Acute hypoxia 2/2 COVID pna Leukocytosis to 24, improving 04/29 COVID rapid + BCx +E.coli S-CTX UA+, UCx +GNRs CXR: No acute process LG on CKD, Cr in 3s, increasing Afib DM Obesity Plan: Cont CTX 2g IV daily #2 for E.coli bacteremia, tentative 10d course to be 04/29 - 05/09 Cont dexamethasone #08/15 Not candidate for RDV given CrCl No convalescent plasma available at this institution, and not shown to improve mortality F/u UCx +GNRs Trend WBC 05/01 SP laisha #2 Monitor CBC/CMP Monitor temp curve, hemodynamics Monitor resp status D/w RN Thank you for this consult. [facility] will continue to follow. Subjective Allergies: Coded Allergies: CODEINE (Verified Allergy, Unknown, 10/10/19) AF 2L NC - on RA on exam NAD, feeling well WBC 12, improving Objective Last 24 Hour Vital Signs Date Time Temp Pulse Resp B/P (MAP) Pulse Ox O2 Delivery O2 Flow Rate FiO2 05/02/20 09:31 145/97 05/02/20 09:00 Nasal Cannula 2.0 05/02/20 08:00 97.9 72 22 145/97 (113) 99 05/02/20 08:00 71 05/02/20 04:00 97.6 86 22 143/96 (112) 100 05/02/20 04:00 53 05/02/20 00:00 63 05/02/20 00:00 98.3 86 22 141/88 (105) 100 05/01/20 21:00 Nasal Cannula 2.0 05/01/20 20:00 97.3 59 16 135/100 (112) 98 05/01/20 20:00 75 05/01/20 16:00 98.0 72 22 123/76 (92) 100 05/01/20 16:00 73 05/01/20 12:00 54 05/01/20 12:00 98.1 87 22 135/81 (99) 100 Height (Feet): 5 Height (Inches): 6.00 Weight (Pounds): 350 Gen: NAD HEENT: NCAT Pulm: BL chest rise Abd: Non-distended Ext: No c/c/e Skin: No visible rashes Neuro: Awake Microbiology Date/Time Source Procedure Growth Status 04/29/20 18:24 Urine,Clean Catch Urine Culture - Preliminary Gram Negative Vitaly Resulted Laboratory Tests Test 05/01/20 21:28 05/02/20 06:18 05/02/20 09:00 POC Whole Blood Glucose 392 MG/DL (74-106) H 351 MG/DL (74-106) H White Blood Count 12.6 K/UL (4.8-10.8) H Red Blood Count 3.48 M/UL (4.20-5.40) L Hemoglobin 9.4 G/DL (12.0-16.0) L Hematocrit 29.0 % (37.0-47.0) L Mean Corpuscular Volume 83 FL (80-99) Mean Corpuscular Hemoglobin 26.9 PG (27.0-31.0) L Mean Corpuscular Hemoglobin Concent 32.3 G/DL (32.0-36.0) Red Cell Distribution Width 16.8 % (11.6-14.8) H Platelet Count 273 K/UL (150-450) Mean Platelet Volume 11.3 FL (6.5-10.1) H Neutrophils (%) (Auto) % (45.0-75.0) Lymphocytes (%) (Auto) % (20.0-45.0) Monocytes (%) (Auto) % (1.0-10.0) Eosinophils (%) (Auto) % (0.0-3.0) Basophils (%) (Auto) % (0.0-2.0) Neutrophils % (Manual) Pending Lymphocytes % (Manual) Pending Platelet Estimate Pending Platelet Morphology Pending Prothrombin Time 13.6 SEC (9.30-11.50) H Prothromb Time International Ratio 1.3 (0.9-1.1) H Sodium Level 134 MMOL/L (136-145) L Potassium Level 4.1 MMOL/L (3.5-5.1) Chloride Level 100 MMOL/L (98-107) Carbon Dioxide Level 24 MMOL/L (21-32) Anion Gap 10 mmol/L (5-15) Blood Urea Nitrogen 72 mg/dL (7-18) H Creatinine 2.8 MG/DL (0.55-1.30) H Estimat Glomerular Filtration Rate 20.0 mL/min (>60) Glucose Level 391 MG/DL (74-106) H Uric Acid 4.2 MG/DL (2.6-7.2) Calcium Level 8.9 MG/DL (8.5-10.1) Phosphorus Level 3.2 MG/DL (2.5-4.9) Magnesium Level 2.0 MG/DL (1.8-2.4) Total Bilirubin 0.4 MG/DL (0.2-1.0) Aspartate Amino Transf (AST/SGOT) 16 U/L (15-37) Alanine Aminotransferase (ALT/SGPT) 22 U/L (12-78) Alkaline Phosphatase 75 U/L (46-116) Total Creatine Kinase 41 U/L (26-308) Troponin I 0.064 ng/mL (0.000-0.056) C-Reactive Protein, Quantitative 11.6 mg/dL (0.00-0.90) H Pro-B-Type Natriuretic Peptide 99938 pg/mL (0-125) H Total Protein 7.4 G/DL (6.4-8.2) Albumin 3.0 G/DL (3.4-5.0) L Globulin 4.4 g/dL Albumin/Globulin Ratio 0.7 (1.0-2.7) L Current Medications Medications (Trade) Dose Ordered Sig/Adria Route PRN Reason Start Time Stop Time Status Last Admin Dose Admin Acetaminophen (Tylenol) 650 mg Q4H PRN ORAL Temp >100.5 04/29/20 14:00 05/29/20 13:59 04/30/20 09:55 Albuterol/ Ipratropium (Combivent Respimat) 1 puff Q4H PRN INH Shortness of Breath 04/29/20 14:00 05/29/20 13:59 Ascorbic Acid (Vitamin C) 500 mg DAILY ORAL 05/01/20 09:00 05/31/20 08:59 05/02/20 09:31 Aspirin (ASA) 81 mg DAILY ORAL 05/01/20 09:00 06/15/20 08:59 05/02/20 09:32 Ceftriaxone Sodium 2 gm/ Dextrose 55 ml @ 110 mls/hr Q24H IVPB 05/01/20 21:00 05/08/20 20:59 05/01/20 21:39 Dexamethasone Sodium Phosphate (Decadron 10mg/ ml Inj) 6 mg DAILY IV 04/30/20 09:00 05/08/20 09:01 05/02/20 09:31 Dextrose (Dextrose 50%) 25 ml Q30M PRN IV Hypoglycemia 05/01/20 15:30 07/30/20 15:29 Dextrose (Dextrose 50%) 50 ml Q30M PRN IV Hypoglycemia 05/01/20 15:30 07/30/20 15:29 Docusate Sodium (Colace) 100 mg THREE TIMES A DAY ORAL 05/01/20 18:00 05/31/20 17:59 05/02/20 09:32 Insulin Aspart (NovoLOG) BEFORE MEALS AND HS SUBQ 05/01/20 16:30 07/30/20 16:29 05/02/20 06:40 Isosorbide Mononitrate (Imdur) 30 mg DAILY ORAL 05/01/20 09:00 05/31/20 08:59 05/02/20 09:31 Lorazepam (Ativan 2mg/ml 1ml) 2 mg Q2H PRN IV For Anxiety 04/29/20 14:00 05/06/20 13:59 Nateglinide (Starlix) 120 mg TIAC ORAL 05/01/20 16:30 05/31/20 16:29 05/02/20 06:16 Nitroglycerin (Ntg) 0.4 mg Q5MIN X 3 DOSES PRN SL CHEST PAIN 04/30/20 22:45 05/30/20 22:44 Ondansetron HCl (Zofran) 4 mg Q6H PRN IVP Nausea & Vomiting 04/29/20 14:00 05/29/20 13:59 Pantoprazole (Protonix) 40 mg EVERY 12 HOURS ORAL 05/01/20 21:00 05/31/20 20:59 05/02/20 09:31 Polyethylene Glycol (Miralax) 17 gm DAILYPRN PRN ORAL Constipation 04/29/20 14:00 05/29/20 13:59 Potassium Chloride (K-Dur) 40 meq TWICE A DAY ORAL 05/01/20 18:00 07/30/20 17:59 05/02/20 09:32 Sodium Chloride 1,000 ml @ 75 mls/hr [id number] IV 04/29/20 17:00 05/29/20 16:59 05/02/20 06:15 Tramadol HCl (Ultram) 50 mg Q6H PRN ORAL For Pain 04/30/20 22:45 05/07/20 22:44 Warfarin Sodium (Coumadin per pharmacy) 1 ea DAILY PRN MISC Per rx protocol 04/30/20 22:45 05/30/20 22:44 Keiry Amezquita M.D. May 02, 2020 11:01
[2020-05-02 12:00] VITALS: BP 141/79
--- NOTE | 2020-05-02 12:31 | Nephrology Progress Note ---
Assessment/Plan Problem List: (1) Renal failure (ARF), acute on chronic (2) Acute respiratory failure (3) Atrial fibrillation, rapid (4) Morbid obesity (5) Diabetes mellitus (6) NSTEMI (non-ST elevated myocardial infarction) Assessment 74-year-old female presents with acute respiratory failure she is morbidly obese Acute renal failure Underlying chronic kidney disease Chronic atrial fibrillation Diabetes mellitus/nephropathy History of DVT Sepsis Non-STEMI MO Morbid obesity Anemia Plan May 02: Serum creatinine lowering. Levemir insulin added for high blood sugar. Norvasc added for better blood pressure control. Continue per consultants. May 01: Serum creatinine 3. INR elevated. Hemoglobin lower. Continue normal saline 75 cc an hour. Starting Starlix for blood sugar control. Kidney ultrasound and 2D echocardiogram results noted. Per orders. Potassium supplement given. Continue to monitor renal parameters and electrolytes. April 30: We will start on renal diet medium carbs. Increase IV fluid to 100 cc an hour. 2D echocardiogram and kidney ultrasound pending. Continue to monitor renal parameters. Avoid nephrotoxic's. Keep the blood pressure and blood sugar in check. Previously: Anne catheter Urine studies Monitor electrolytes Kidney ultrasound Avoid nephrotoxic's 2D echocardiogram Albumin bolus Per orders Subjective ROS Limited/Unobtainable: No Constitutional: Reports: malaise Objective Objective Last 24 Hour Vital Signs Date Time Temp Pulse Resp B/P (MAP) Pulse Ox O2 Delivery O2 Flow Rate FiO2 05/02/20 09:31 145/97 05/02/20 09:00 Nasal Cannula 2.0 05/02/20 08:00 97.9 72 22 145/97 (113) 99 05/02/20 08:00 71 05/02/20 04:00 97.6 86 22 143/96 (112) 100 05/02/20 04:00 53 05/02/20 00:00 63 05/02/20 00:00 98.3 86 22 141/88 (105) 100 05/01/20 21:00 Nasal Cannula 2.0 05/01/20 20:00 97.3 59 16 135/100 (112) 98 05/01/20 20:00 75 05/01/20 16:00 98.0 72 22 123/76 (92) 100 05/01/20 16:00 73 Intake and Output 05/01/20 05/02/20 19:00 07:00 Intake Total 700 ml 450 ml Output Total 650 ml 475 ml Balance 50 ml -25 ml Intake Oral 700 ml IV Total 450 ml Output Urine Total 650 ml 475 ml # Voids 1 Current Medications Medications (Trade) Dose Ordered Sig/Adria Route PRN Reason Start Time Stop Time Status Last Admin Dose Admin Acetaminophen (Tylenol) 650 mg Q4H PRN ORAL Temp >100.5 04/29/20 14:00 05/29/20 13:59 04/30/20 09:55 Albuterol/ Ipratropium (Combivent Respimat) 1 puff Q4H PRN INH Shortness of Breath 04/29/20 14:00 05/29/20 13:59 Amlodipine Besylate (Norvasc) 5 mg DAILY ORAL 05/03/20 09:00 06/02/20 08:59 Amlodipine Besylate (Norvasc) 5 mg ONCE ORAL 05/02/20 13:30 05/02/20 14:30 Ascorbic Acid (Vitamin C) 500 mg DAILY ORAL 05/01/20 09:00 05/31/20 08:59 05/02/20 09:31 Aspirin (ASA) 81 mg DAILY ORAL 05/01/20 09:00 06/15/20 08:59 05/02/20 09:32 Ceftriaxone Sodium 2 gm/ Dextrose 55 ml @ 110 mls/hr Q24H IVPB 05/01/20 21:00 05/08/20 20:59 05/01/20 21:39 Dexamethasone Sodium Phosphate (Decadron 10mg/ ml Inj) 6 mg DAILY IV 04/30/20 09:00 05/08/20 09:01 05/02/20 09:31 Dextrose (Dextrose 50%) 25 ml Q30M PRN IV Hypoglycemia 05/01/20 15:30 07/30/20 15:29 Dextrose (Dextrose 50%) 50 ml Q30M PRN IV Hypoglycemia 05/01/20 15:30 07/30/20 15:29 Docusate Sodium (Colace) 100 mg THREE TIMES A DAY ORAL 05/01/20 18:00 05/31/20 17:59 05/02/20 09:32 Insulin Aspart (NovoLOG) BEFORE MEALS AND HS SUBQ 05/01/20 16:30 07/30/20 16:29 05/02/20 06:40 Insulin Detemir (Levemir) 10 units Q12HR SUBQ 05/02/20 13:30 07/31/20 13:29 Isosorbide Mononitrate (Imdur) 30 mg DAILY ORAL 05/01/20 09:00 05/31/20 08:59 05/02/20 09:31 Lorazepam (Ativan 2mg/ml 1ml) 2 mg Q2H PRN IV For Anxiety 04/29/20 14:00 05/06/20 13:59 Nateglinide (Starlix) 120 mg TIAC ORAL 05/01/20 16:30 05/31/20 16:29 05/02/20 11:56 Nitroglycerin (Ntg) 0.4 mg Q5MIN X 3 DOSES PRN SL CHEST PAIN 04/30/20 22:45 05/30/20 22:44 Ondansetron HCl (Zofran) 4 mg Q6H PRN IVP Nausea & Vomiting 04/29/20 14:00 05/29/20 13:59 Pantoprazole (Protonix) 40 mg EVERY 12 HOURS ORAL 05/01/20 21:00 05/31/20 20:59 05/02/20 09:31 Polyethylene Glycol (Miralax) 17 gm DAILYPRN PRN ORAL Constipation 04/29/20 14:00 05/29/20 13:59 Sodium Chloride 1,000 ml @ 75 mls/hr [id number] IV 04/29/20 17:00 05/29/20 16:59 05/02/20 06:15 Tramadol HCl (Ultram) 50 mg Q6H PRN ORAL For Pain 04/30/20 22:45 05/07/20 22:44 Warfarin Sodium (Coumadin per pharmacy) 1 ea DAILY PRN MISC Per rx protocol 04/30/20 22:45 05/30/20 22:44 Laboratory Tests 05/01/20 21:28: POC Whole Blood Glucose 392H 05/02/20 06:18: POC Whole Blood Glucose 351H 05/02/20 09:00: White Blood Count 12.6H, Red Blood Count 3.48L, Hemoglobin 9.4L, Hematocrit 29.0L, Mean Corpuscular Volume 83, Mean Corpuscular Hemoglobin 26.9L, Mean Corpuscular Hemoglobin Concent 32.3, Red Cell Distribution Width 16.8H, Platelet Count 273, Mean Platelet Volume 11.3H, Neutrophils (%) (Auto) , Lymphocytes (%) (Auto) , Monocytes (%) (Auto) , Eosinophils (%) (Auto) , Basophils (%) (Auto) , Differential Total Cells Counted 100, Neutrophils % (Manual) 91H, Lymphocytes % (Manual) 4L, Monocytes % (Manual) 5, Eosinophils % (Manual) 0, Basophils % (Manual) 0, Band Neutrophils 0, Platelet Estimate Adequate, Platelet Morphology Normal, Hypochromasia 1+, Anisocytosis 1+, Prothrombin Time 13.6H, Prothromb Time International Ratio 1.3H, Sodium Level 134L, Potassium Level 4.1, Chloride Level 100, Carbon Dioxide Level 24, Anion Gap 10, Blood Urea Nitrogen 72H, Creatinine 2.8H, Estimat Glomerular Filtration Rate 20.0, Glucose Level 391H, Uric Acid 4.2, Calcium Level 8.9, Phosphorus Level 3.2, Magnesium Level 2.0, Total Bilirubin 0.4, Aspartate Amino Transf (AST/SGOT) 16, Alanine Aminotransferase (ALT/SGPT) 22, Alkaline Phosphatase 75, Total Creatine Kinase 41, Troponin I 0.064H, C-Reactive Protein, Quantitative 11.6H, Pro-B-Type Natriuretic Peptide [id number], Total Protein 7.4, Albumin 3.0L, Globulin 4.4, Albumin/Globulin Ratio 0.7L Height (Feet): 5 Height (Inches): 6.00 Weight (Pounds): 350 General Appearance: no apparent distress Cardiovascular: normal rate Respiratory/Chest: decreased breath sounds Abdomen: distended Pantera Wallace MD May 02, 2020 12:31
[2020-05-02] MEDS: Levemir Flexpen SUBQ SCH ×2 (13:42→21:26)
--- NOTE | 2020-05-02 15:51 | Pulmonology Progress Note ---
Subjective ROS Limited/Unobtainable: No Interval Events: doing better Allergies: Coded Allergies: CODEINE (Verified Allergy, Unknown, 10/10/19) Objective Last 24 Hour Vital Signs Date Time Temp Pulse Resp B/P (MAP) Pulse Ox O2 Delivery O2 Flow Rate FiO2 05/02/20 13:43 80 141/79 05/02/20 12:00 98.2 74 20 141/79 (99) 97 05/02/20 12:00 80 05/02/20 09:31 145/97 05/02/20 09:00 Nasal Cannula 2.0 05/02/20 08:00 97.9 72 22 145/97 (113) 99 05/02/20 08:00 71 05/02/20 04:00 97.6 86 22 143/96 (112) 100 05/02/20 04:00 53 05/02/20 00:00 63 05/02/20 00:00 98.3 86 22 141/88 (105) 100 05/01/20 21:00 Nasal Cannula 2.0 05/01/20 20:00 97.3 59 16 135/100 (112) 98 05/01/20 20:00 75 05/01/20 16:00 98.0 72 22 123/76 (92) 100 05/01/20 16:00 73 Intake and Output 05/01/20 05/02/20 19:00 07:00 Intake Total 700 ml 450 ml Output Total 650 ml 475 ml Balance 50 ml -25 ml Intake Oral 700 ml IV Total 450 ml Output Urine Total 650 ml 475 ml # Voids 1 General Appearance: WD/WN HEENT: normocephalic, atraumatic Respiratory: chest wall non-tender, rhonchi - left, rhonchi - right Cardiovascular: normal peripheral pulses, normal rate, regular rhythm Abdomen: normal bowel sounds, soft, non tender, no organomegaly Genitourinary: normal external genitalia Extremities: no cyanosis Neurologic: outside repairer special II-XII grossly normal Microbiology Date/Time Source Procedure Growth Status 04/29/20 18:24 Urine,Clean Catch Urine Culture - Final Escherichia Coli Complete Laboratory Tests 05/01/20 21:28: POC Whole Blood Glucose 392H 05/02/20 06:18: POC Whole Blood Glucose 351H 05/02/20 09:00: White Blood Count 12.6H, Red Blood Count 3.48L, Hemoglobin 9.4L, Hematocrit 29.0L, Mean Corpuscular Volume 83, Mean Corpuscular Hemoglobin 26.9L, Mean Corpuscular Hemoglobin Concent 32.3, Red Cell Distribution Width 16.8H, Platelet Count 273, Mean Platelet Volume 11.3H, Neutrophils (%) (Auto) , Lymphocytes (%) (Auto) , Monocytes (%) (Auto) , Eosinophils (%) (Auto) , Basophils (%) (Auto) , Differential Total Cells Counted 100, Neutrophils % (Manual) 91H, Lymphocytes % (Manual) 4L, Monocytes % (Manual) 5, Eosinophils % (Manual) 0, Basophils % (Man ual) 0, Band Neutrophils 0, Platelet Estimate Adequate, Platelet Morphology Normal, Hypochromasia 1+, Anisocytosis 1+, Prothrombin Time 13.6H, Prothromb Time International Ratio 1.3H, Sodium Level 134L, Potassium Level 4.1, Chloride Level 100, Carbon Dioxide Level 24, Anion Gap 10, Blood Urea Nitrogen 72H, Creatinine 2.8H, Estimat Glomerular Filtration Rate 20.0, Glucose Level 391H, Uric Acid 4.2, Calcium Level 8.9, Phosphorus Level 3.2, Magnesium Level 2.0, Total Bilirubin 0.4, Aspartate Amino Transf (AST/SGOT) 16, Alanine Aminotransferase (ALT/SGPT) 22, Alkaline Phosphatase 75, Total Creatine Kinase 41, Troponin I 0.064H, C-Reactive Protein, Quantitative 11.6H, Pro-B-Type Natriuretic Peptide [id number], Total Protein 7.4, Albumin 3.0L, Globulin 4.4, Albumin/Globulin Ratio 0.7L Current Medications Medications (Trade) Dose Ordered Sig/Adria Route PRN Reason Start Time Stop Time Status Last Admin Dose Admin Acetaminophen (Tylenol) 650 mg Q4H PRN ORAL Temp >100.5 04/29/20 14:00 05/29/20 13:59 04/30/20 09:55 Albuterol/ Ipratropium (Combivent Respimat) 1 puff Q4H PRN INH Shortness of Breath 04/29/20 14:00 05/29/20 13:59 Amlodipine Besylate (Norvasc) 5 mg DAILY ORAL 05/03/20 09:00 06/02/20 08:59 Ascorbic Acid (Vitamin C) 500 mg DAILY ORAL 05/01/20 09:00 05/31/20 08:59 05/02/20 09:31 Aspirin (ASA) 81 mg DAILY ORAL 05/01/20 09:00 06/15/20 08:59 05/02/20 09:32 Ceftriaxone Sodium 2 gm/ Dextrose 55 ml @ 110 mls/hr Q24H IVPB 05/01/20 21:00 05/08/20 20:59 05/01/20 21:39 Dexamethasone Sodium Phosphate (Decadron 10mg/ ml Inj) 6 mg DAILY IV 04/30/20 09:00 05/08/20 09:01 05/02/20 09:31 Dextrose (Dextrose 50%) 25 ml Q30M PRN IV Hypoglycemia 05/01/20 15:30 07/30/20 15:29 Dextrose (Dextrose 50%) 50 ml Q30M PRN IV Hypoglycemia 05/01/20 15:30 07/30/20 15:29 Docusate Sodium (Colace) 100 mg THREE TIMES A DAY ORAL 05/01/20 18:00 05/31/20 17:59 05/02/20 09:32 Insulin Aspart (NovoLOG) BEFORE MEALS AND HS SUBQ 05/01/20 16:30 07/30/20 16:29 05/02/20 12:35 Insulin Detemir (Levemir) 10 units Q12HR SUBQ 05/02/20 13:30 07/31/20 13:29 05/02/20 13:42 Isosorbide Mononitrate (Imdur) 30 mg DAILY ORAL 05/01/20 09:00 05/31/20 08:59 05/02/20 09:31 Lorazepam (Ativan 2mg/ml 1ml) 2 mg Q2H PRN IV For Anxiety 04/29/20 14:00 05/06/20 13:59 Nateglinide (Starlix) 120 mg TIAC ORAL 05/01/20 16:30 05/31/20 16:29 05/02/20 11:56 Nitroglycerin (Ntg) 0.4 mg Q5MIN X 3 DOSES PRN SL CHEST PAIN 04/30/20 22:45 05/30/20 22:44 Ondansetron HCl (Zofran) 4 mg Q6H PRN IVP Nausea & Vomiting 04/29/20 14:00 05/29/20 13:59 Pantoprazole (Protonix) 40 mg EVERY 12 HOURS ORAL 05/01/20 21:00 05/31/20 20:59 05/02/20 09:31 Polyethylene Glycol (Miralax) 17 gm DAILYPRN PRN ORAL Constipation 04/29/20 14:00 05/29/20 13:59 Sodium Chloride 1,000 ml @ 75 mls/hr [id number] IV 04/29/20 17:00 05/29/20 16:59 05/02/20 06:15 Tramadol HCl (Ultram) 50 mg Q6H PRN ORAL For Pain 04/30/20 22:45 05/07/20 22:44 Warfarin Sodium (Coumadin per pharmacy) 1 ea DAILY PRN MISC Per rx protocol 04/30/20 22:45 05/30/20 22:44 Warfarin Sodium (Coumadin) 10 mg COUMADIN ORAL 05/02/20 17:00 05/07/20 16:59 Assessment/Plan Problems: (1) 2019 novel coronavirus disease (COVID-19) (2) Bacteremia due to Gram-negative bacteria (3) Sepsis (4) Atrial fibrillation, rapid (5) Diabetes mellitus (6) History of DVT (deep vein thrombosis) (7) Morbid obesity Assessment/Plan afebrile, wbc still high iv abx, check sensitivity of GNR in blood titrate fio2 to sat of 92% respiratory treatment keep in monitored bed sliding scale dvt prophylaxis Bandar Brownlee MD May 02, 2020 15:51
[2020-05-02 16:00] VITALS: BP 139/82
[2020-05-02] MEDS: Warfarin Sodium 5mg ORAL SCH (16:47)
--- NOTE | 2020-05-02 17:04 | Cardiology Progress Note ---
Assessment/Plan Assessment/Plan COVID pneumonia, seems to be stable a fib, rate is controlled, antiocagulation with Warfarin per pharmacy yesterday INR was 6.9 today 1.3 ??? no evidecen of acute CHF Subjective Subjective The patient is resting in bed, she denies chest pain, aswers slow. Objective Last 24 Hour Vital Signs Date Time Temp Pulse Resp B/P (MAP) Pulse Ox O2 Delivery O2 Flow Rate FiO2 05/02/20 16:00 98.0 60 22 139/82 (101) 98 05/02/20 16:00 59 05/02/20 13:43 80 141/79 05/02/20 12:00 98.2 74 20 141/79 (99) 97 05/02/20 12:00 80 05/02/20 09:31 145/97 05/02/20 09:00 Nasal Cannula 2.0 05/02/20 08:00 97.9 72 22 145/97 (113) 99 05/02/20 08:00 71 05/02/20 04:00 97.6 86 22 143/96 (112) 100 05/02/20 04:00 53 05/02/20 00:00 63 05/02/20 00:00 98.3 86 22 141/88 (105) 100 05/01/20 21:00 Nasal Cannula 2.0 05/01/20 20:00 97.3 59 16 135/100 (112) 98 05/01/20 20:00 75 General Appearance: lethargic, obese EENT: PERRL/EOMI Neck: JVD Rhythm: Afib Cardiovascular: bradycardia, systolic murmur Respiratory/Chest: rhonchi - bilaterally Abdomen: distended Extremities: severe edema Intake and Output 05/01/20 05/02/20 19:00 07:00 Intake Total 700 ml 450 ml Output Total 650 ml 475 ml Balance 50 ml -25 ml Intake Oral 700 ml IV Total 450 ml Output Urine Total 650 ml 475 ml # Voids 1 Laboratory Tests Test 05/01/20 21:28 05/02/20 06:18 05/02/20 09:00 POC Whole Blood Glucose 392 MG/DL (74-106) H 351 MG/DL (74-106) H White Blood Count 12.6 K/UL (4.8-10.8) H Red Blood Count 3.48 M/UL (4.20-5.40) L Hemoglobin 9.4 G/DL (12.0-16.0) L Hematocrit 29.0 % (37.0-47.0) L Mean Corpuscular Volume 83 FL (80-99) Mean Corpuscular Hemoglobin 26.9 PG (27.0-31.0) L Mean Corpuscular Hemoglobin Concent 32.3 G/DL (32.0-36.0) Red Cell Distribution Width 16.8 % (11.6-14.8) H Platelet Count 273 K/UL (150-450) Mean Platelet Volume 11.3 FL (6.5-10.1) H Neutrophils (%) (Auto) % (45.0-75.0) Lymphocytes (%) (Auto) % (20.0-45.0) Monocytes (%) (Auto) % (1.0-10.0) Eosinophils (%) (Auto) % (0.0-3.0) Basophils (%) (Auto) % (0.0-2.0) Differential Total Cells Counted 100 Neutrophils % (Manual) 91 % (45-75) H Lymphocytes % (Manual) 4 % (20-45) L Monocytes % (Manual) 5 % (1-10) Eosinophils % (Manual) 0 % (0-3) Basophils % (Manual) 0 % (0-2) Band Neutrophils 0 % (0-8) Platelet Estimate Adequate Platelet Morphology Normal Hypochromasia 1+ Anisocytosis 1+ Prothrombin Time 13.6 SEC (9.30-11.50) H Prothromb Time International Ratio 1.3 (0.9-1.1) H Sodium Level 134 MMOL/L (136-145) L Potassium Level 4.1 MMOL/L (3.5-5.1) Chloride Level 100 MMOL/L (98-107) Carbon Dioxide Level 24 MMOL/L (21-32) Anion Gap 10 mmol/L (5-15) Blood Urea Nitrogen 72 mg/dL (7-18) H Creatinine 2.8 MG/DL (0.55-1.30) H Estimat Glomerular Filtration Rate 20.0 mL/min (>60) Glucose Level 391 MG/DL (74-106) H Uric Acid 4.2 MG/DL (2.6-7.2) Calcium Level 8.9 MG/DL (8.5-10.1) Phosphorus Level 3.2 MG/DL (2.5-4.9) Magnesium Level 2.0 MG/DL (1.8-2.4) Total Bilirubin 0.4 MG/DL (0.2-1.0) Aspartate Amino Transf (AST/SGOT) 16 U/L (15-37) Alanine Aminotransferase (ALT/SGPT) 22 U/L (12-78) Alkaline Phosphatase 75 U/L (46-116) Total Creatine Kinase 41 U/L (26-308) Troponin I 0.064 ng/mL (0.000-0.056) C-Reactive Protein, Quantitative 11.6 mg/dL (0.00-0.90) H Pro-B-Type Natriuretic Peptide 46636 pg/mL (0-125) H Total Protein 7.4 G/DL (6.4-8.2) Albumin 3.0 G/DL (3.4-5.0) L Globulin 4.4 g/dL Albumin/Globulin Ratio 0.7 (1.0-2.7) L Microbiology Date/Time Source Procedure Growth Status 04/29/20 18:24 Urine,Clean Catch Urine Culture - Final Escherichia Coli Complete Marisa Hicks MD May 02, 2020 17:04
--- NOTE | 2020-05-02 17:15 | Internal Med Progress Note ---
Subjective Physician Name Aleksandr Vega Attending Physician Aleksandr Vega MD Current Medications Medications (Trade) Dose Ordered Sig/Adria Route PRN Reason Start Time Stop Time Status Last Admin Dose Admin Acetaminophen (Tylenol) 650 mg Q4H PRN ORAL Temp >100.5 04/29/20 14:00 05/29/20 13:59 04/30/20 09:55 Albuterol/ Ipratropium (Combivent Respimat) 1 puff Q4H PRN INH Shortness of Breath 04/29/20 14:00 05/29/20 13:59 Amlodipine Besylate (Norvasc) 5 mg DAILY ORAL 05/03/20 09:00 06/02/20 08:59 Ascorbic Acid (Vitamin C) 500 mg DAILY ORAL 05/01/20 09:00 05/31/20 08:59 05/02/20 09:31 Aspirin (ASA) 81 mg DAILY ORAL 05/01/20 09:00 06/15/20 08:59 05/02/20 09:32 Ceftriaxone Sodium 2 gm/ Dextrose 55 ml @ 110 mls/hr Q24H IVPB 05/01/20 21:00 05/08/20 20:59 05/01/20 21:39 Dexamethasone Sodium Phosphate (Decadron 10mg/ ml Inj) 6 mg DAILY IV 04/30/20 09:00 05/08/20 09:01 05/02/20 09:31 Dextrose (Dextrose 50%) 25 ml Q30M PRN IV Hypoglycemia 05/01/20 15:30 07/30/20 15:29 Dextrose (Dextrose 50%) 50 ml Q30M PRN IV Hypoglycemia 05/01/20 15:30 07/30/20 15:29 Docusate Sodium (Colace) 100 mg THREE TIMES A DAY ORAL 05/01/20 18:00 05/31/20 17:59 05/02/20 09:32 Insulin Aspart (NovoLOG) BEFORE MEALS AND HS SUBQ 05/01/20 16:30 07/30/20 16:29 05/02/20 17:01 Insulin Detemir (Levemir) 10 units Q12HR SUBQ 05/02/20 13:30 07/31/20 13:29 05/02/20 13:42 Isosorbide Mononitrate (Imdur) 30 mg DAILY ORAL 05/01/20 09:00 05/31/20 08:59 05/02/20 09:31 Lorazepam (Ativan 2mg/ml 1ml) 2 mg Q2H PRN IV For Anxiety 04/29/20 14:00 05/06/20 13:59 Nateglinide (Starlix) 120 mg TIAC ORAL 05/01/20 16:30 05/31/20 16:29 05/02/20 16:47 Nitroglycerin (Ntg) 0.4 mg Q5MIN X 3 DOSES PRN SL CHEST PAIN 04/30/20 22:45 05/30/20 22:44 Ondansetron HCl (Zofran) 4 mg Q6H PRN IVP Nausea & Vomiting 04/29/20 14:00 05/29/20 13:59 Pantoprazole (Protonix) 40 mg EVERY 12 HOURS ORAL 05/01/20 21:00 05/31/20 20:59 05/02/20 09:31 Polyethylene Glycol (Miralax) 17 gm DAILYPRN PRN ORAL Constipation 04/29/20 14:00 05/29/20 13:59 Sodium Chloride 1,000 ml @ 75 mls/hr [id number] IV 04/29/20 17:00 05/29/20 16:59 05/02/20 06:15 Tramadol HCl (Ultram) 50 mg Q6H PRN ORAL For Pain 04/30/20 22:45 05/07/20 22:44 Warfarin Sodium (Coumadin per pharmacy) 1 ea DAILY PRN MISC Per rx protocol 04/30/20 22:45 05/30/20 22:44 Warfarin Sodium (Coumadin) 10 mg COUMADIN ORAL 05/02/20 17:00 05/07/20 16:59 05/02/20 16:47 Allergies: Coded Allergies: CODEINE (Verified Allergy, Unknown, 10/10/19) Subjective awake, alert, responsive, denies any chest pain, less shortness of breath, WBC: 12.6. INR 1.3. Objective Last Vital Signs Date Time Temp Pulse Resp B/P (MAP) Pulse Ox O2 Delivery O2 Flow Rate FiO2 05/02/20 16:00 98.0 60 22 139/82 (101) 98 05/02/20 09:00 Nasal Cannula 2.0 04/29/20 15:28 30 Laboratory Tests Test 05/01/20 21:28 05/02/20 06:18 05/02/20 09:00 POC Whole Blood Glucose 392 MG/DL (74-106) H 351 MG/DL (74-106) H White Blood Count 12.6 K/UL (4.8-10.8) H Red Blood Count 3.48 M/UL (4.20-5.40) L Hemoglobin 9.4 G/DL (12.0-16.0) L Hematocrit 29.0 % (37.0-47.0) L Mean Corpuscular Volume 83 FL (80-99) Mean Corpuscular Hemoglobin 26.9 PG (27.0-31.0) L Mean Corpuscular Hemoglobin Concent 32.3 G/DL (32.0-36.0) Red Cell Distribution Width 16.8 % (11.6-14.8) H Platelet Count 273 K/UL (150-450) Mean Platelet Volume 11.3 FL (6.5-10.1) H Neutrophils (%) (Auto) % (45.0-75.0) Lymphocytes (%) (Auto) % (20.0-45.0) Monocytes (%) (Auto) % (1.0-10.0) Eosinophils (%) (Auto) % (0.0-3.0) Basophils (%) (Auto) % (0.0-2.0) Differential Total Cells Counted 100 Neutrophils % (Manual) 91 % (45-75) H Lymphocytes % (Manual) 4 % (20-45) L Monocytes % (Manual) 5 % (1-10) Eosinophils % (Manual) 0 % (0-3) Basophils % (Manual) 0 % (0-2) Band Neutrophils 0 % (0-8) Platelet Estimate Adequate Platelet Morphology Normal Hypochromasia 1+ Anisocytosis 1+ Prothrombin Time 13.6 SEC (9.30-11.50) H Prothromb Time International Ratio 1.3 (0.9-1.1) H Sodium Level 134 MMOL/L (136-145) L Potassium Level 4.1 MMOL/L (3.5-5.1) Chloride Level 100 MMOL/L (98-107) Carbon Dioxide Level 24 MMOL/L (21-32) Anion Gap 10 mmol/L (5-15) Blood Urea Nitrogen 72 mg/dL (7-18) H Creatinine 2.8 MG/DL (0.55-1.30) H Estimat Glomerular Filtration Rate 20.0 mL/min (>60) Glucose Level 391 MG/DL (74-106) H Uric Acid 4.2 MG/DL (2.6-7.2) Calcium Level 8.9 MG/DL (8.5-10.1) Phosphorus Level 3.2 MG/DL (2.5-4.9) Magnesium Level 2.0 MG/DL (1.8-2.4) Total Bilirubin 0.4 MG/DL (0.2-1.0) Aspartate Amino Transf (AST/SGOT) 16 U/L (15-37) Alanine Aminotransferase (ALT/SGPT) 22 U/L (12-78) Alkaline Phosphatase 75 U/L (46-116) Total Creatine Kinase 41 U/L (26-308) Troponin I 0.064 ng/mL (0.000-0.056) C-Reactive Protein, Quantitative 11.6 mg/dL (0.00-0.90) H Pro-B-Type Natriuretic Peptide 93381 pg/mL (0-125) H Total Protein 7.4 G/DL (6.4-8.2) Albumin 3.0 G/DL (3.4-5.0) L Globulin 4.4 g/dL Albumin/Globulin Ratio 0.7 (1.0-2.7) L Microbiology Date/Time Source Procedure Growth Status 04/29/20 18:24 Urine,Clean Catch Urine Culture - Final Escherichia Coli Complete Intake and Output 05/01/20 05/02/20 19:00 07:00 Intake Total 700 ml 450 ml Output Total 650 ml 475 ml Balance 50 ml -25 ml Intake Oral 700 ml IV Total 450 ml Output Urine Total 650 ml 475 ml # Voids 1 Objective General: No acute distress, awake and alert HEENT: NCAT, sclera anicteric, PERRL, EOMI. Neck: Supple, no significant jugular venous distention, Lungs: fair inspiratory effort, decreased air at the bases, no Wheeze or Rales. Heart: Regular rate and rhythm, normal S1/S2, no murmurs/ Abdomen: soft, nontender, nondistended. Normoactive bowel sounds, morbid obesity. / Rectal: Refused and deferred. Extremities: No Cyanosis or clubbing, decreased edema bilateral lower extremities. Neuro: A&O x 3, Able to move all extremities Skin: warm, no rashes or lesions Psych: Normal mood and affect Assessment/Plan Assessment/Plan 1. Acute hypoxemic respiratory failure. 2. COVID-19 pneumonia. 3. Acute renal failure on chronic renal insufficiency. 4. E. Coli Sepsis / Bacteremia. 5. Acute E. Coli urinary tract infection. 6. Morbid obesity. 7. Chronic atrial fibrillation with rapid ventricular rate. 8. Diabetes type 2. 9. Coronary artery disease with prior history of myocardial infarction. 10. Non-ST elevation myocardial infarction, most likely secondary to demand ischemia. 11. Anemia of chronic kidney disease. 12. History of DVT of lower extremity. 13. Chronic Congestive heart failure with reduced ejection fraction. 14. Hypertension. 15. Chronic lymphedema of lower extremity. PLAN: transfer to Med / Surg. Antibiotic: Rocephin IV, Decadron IV. Dr. Keiry Amezquita. from Infectious Disease. Dr. Brownlee from Pulmonary and Critical Care Dr. Pantera Wallace from Nephrology. Code status: Full Code. DVT prophylaxis: Coumadin follow-up with cultures and laboratory in the morning. CODE STATUS: Full code. Aleksandr Vega MD May 02, 2020 17:15
[2020-05-02 20:00] VITALS: BP 150/83
[2020-05-02] MEDS: cefTRIAXone 2 GM in D5W 55 ML IVPB SCH (21:01)
[2020-05-03] VITALS: BP 152/91
[2020-05-03 04:00] VITALS: BP 143/86
[2020-05-03] MEDS: NovoLOG Insulin Flexpen SUBQ SCH ×4 (06:16→20:43)
[2020-05-03 08:00] VITALS: BP 138/85
[2020-05-03] MEDS: Docusate 100mg cap ORAL SCH ×3 (09:00→18:00)
[2020-05-03 09:10] LABS: INR 1.3 (0.9-1.1)
[2020-05-03 09:11] LABS: HEMATOCRIT 30.2 % (37.0-47.0); HEMOGLOBIN 9.9 G/DL (12.0-16.0); MEAN CORPUSCULAR VOLUME 82 FL (80-99); PLATELET COUNT 290 K/UL (150-450); RED BLOOD COUNT 3.67 M/UL (4.20-5.40); RED CELL DISTRIBUTION WIDTH 16.9 % (11.6-14.8); WHITE BLOOD COUNT 12.8 K/UL (4.8-10.8)
[2020-05-03] MEDS: Aspirin Baby 81mg ORAL SCH (09:20)
[2020-05-03] MEDS: Ascorbic Acid 500mg tab ORAL SCH (09:20)
[2020-05-03] MEDS: Imdur 30mg tab ORAL SCH (09:20)
[2020-05-03] MEDS: dexAMETHasone 10mg/ml Inj IV SCH (09:21)
[2020-05-03 09:48] LABS: ALANINE AMINOTRANSFERASE 18 U/L (12-78); ASPARTATE AMINO TRANSFERASE 12 U/L (15-37); BILIRUBIN,TOTAL 0.4 MG/DL (0.2-1.0); BLOOD UREA NITROGEN 70 mg/dL (7-18); CALCIUM 9.2 MG/DL (8.5-10.1); CARBON DIOXIDE 24 MMOL/L (21-32); CHLORIDE 104 MMOL/L (98-107); CREATININE 2.5 MG/DL (0.55-1.30); PHOSPHORUS 2.9 MG/DL (2.5-4.9); POTASSIUM 4.3 MMOL/L (3.5-5.1); SODIUM 136 MMOL/L (136-145)
[2020-05-03] MEDS: Levemir Flexpen SUBQ SCH ×2 (09:48→20:43)
[2020-05-03 09:49] LABS: ALBUMIN 2.7 G/DL (3.4-5.0); ALKALINE PHOSPHATASE 73 U/L (46-116)
[2020-05-03 12:00] VITALS: BP 130/75
--- NOTE | 2020-05-03 13:42 | Pulmonology Progress Note ---
Subjective ROS Limited/Unobtainable: No Interval Events: doing better Allergies: Coded Allergies: CODEINE (Verified Allergy, Unknown, 10/10/19) Objective Last 24 Hour Vital Signs Date Time Temp Pulse Resp B/P (MAP) Pulse Ox O2 Delivery O2 Flow Rate FiO2 05/03/20 12:00 98.2 81 18 130/75 (93) 100 05/03/20 12:00 56 05/03/20 09:20 77 138/85 05/03/20 09:20 138/85 05/03/20 09:00 Room Air 05/03/20 08:00 77 05/03/20 08:00 98.7 56 20 138/85 (102) 100 05/03/20 04:00 98.6 69 20 143/86 (105) 95 05/03/20 04:00 47 05/03/20 00:00 98.5 67 20 152/91 (111) 96 05/03/20 00:00 58 05/02/20 21:00 Nasal Cannula 2.0 05/02/20 20:00 98.4 83 21 150/83 (105) 96 05/02/20 20:00 61 05/02/20 16:00 98.0 60 22 139/82 (101) 98 05/02/20 16:00 59 05/02/20 13:43 80 141/79 Intake and Output 05/02/20 05/03/20 19:00 07:00 Intake Total 360 ml Output Total 400 ml 800 ml Balance -40 ml -800 ml Intake Oral 360 ml Output Urine Total 400 ml 800 ml General Appearance: WD/WN HEENT: normocephalic, atraumatic Respiratory: chest wall non-tender, rhonchi - left, rhonchi - right Cardiovascular: normal peripheral pulses, normal rate, regular rhythm Abdomen: normal bowel sounds, soft, non tender, no organomegaly Genitourinary: normal external genitalia Extremities: no cyanosis 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 normal Laboratory Tests 05/03/20 07:30: White Blood Count 12.8H, Red Blood Count 3.67L, Hemoglobin 9.9L, Hematocrit 30.2L, Mean Corpuscular Volume 82, Mean Corpuscular Hemoglobin 26.9L, Mean Corpuscular Hemoglobin Concent 32.7, Red Cell Distribution Width 16.9H, Platelet Count 290, Mean Platelet Volume 10.2H, Neutrophils (%) (Auto) , Lymphocytes (%) (Auto) , Monocytes (%) (Auto) , Eosinophils (%) (Auto) , Basophils (%) (Auto) , Differential Total Cells Counted 100, Neutrophils % (Manual) 91H, Lymphocytes % (Manual) 4L, Monocytes % (Manual) 4, Eosinophils % (Manual) 1, Basophils % (Manual) 0, Band Neutrophils 0, Platelet Estimate Adequate, Platelet Morphology Normal, Hypochromasia 1+, Anisocytosis 1+, Vitamin D 25-Hydroxy [Pending], 25- Hydroxy Vitamin D2 [Pending], 25-Hydroxy Vitamin D3 [Pending] 05/03/20 07:38: Prothrombin Time 14.2H, Prothromb Time International Ratio 1.3H, Sodium Level 136, Potassium Level 4.3, Chloride Level 104, Carbon Dioxide Level 24, Blood Urea Nitrogen 70H, Creatinine 2.5H, Estimat Glomerular Filtration Rate 22.8, Glucose Level 289#H, Calcium Level 9.2, Phosphorus Level 2.9, Magnesium Level 2.0, Total Bilirubin 0.4, Aspartate Amino Transf (AST/SGOT) 12L, Alanine Aminotransferase (ALT/SGPT) 18, Alkaline Phosphatase 73, C-Reactive Protein, Quantitative 7.2H, Pro-B-Type Natriuretic Peptide 7081H, Total Protein 7.5, Albumin 2.7L, Globulin 4.8 Current Medications Medications (Trade) Dose Ordered Sig/Adria Route PRN Reason Start Time Stop Time Status Last Admin Dose Admin Acetaminophen (Tylenol) 650 mg Q4H PRN ORAL Temp >100.5 04/29/20 14:00 05/29/20 13:59 04/30/20 09:55 Albuterol/ Ipratropium (Combivent Respimat) 1 puff Q4H PRN INH Shortness of Breath 04/29/20 14:00 05/29/20 13:59 Amlodipine Besylate (Norvasc) 5 mg DAILY ORAL 05/03/20 09:00 06/02/20 08:59 05/03/20 09:20 Ascorbic Acid (Vitamin C) 500 mg DAILY ORAL 05/01/20 09:00 05/31/20 08:59 05/03/20 09:20 Aspirin (ASA) 81 mg DAILY ORAL 05/01/20 09:00 06/15/20 08:59 05/03/20 09:20 Ceftriaxone Sodium 2 gm/ Dextrose 55 ml @ 110 mls/hr Q24H IVPB 05/01/20 21:00 05/08/20 20:59 05/02/20 21:01 Dexamethasone Sodium Phosphate (Decadron 10mg/ ml Inj) 6 mg DAILY IV 04/30/20 09:00 05/08/20 09:01 05/03/20 09:21 Dextrose (Dextrose 50%) 25 ml Q30M PRN IV Hypoglycemia 05/01/20 15:30 07/30/20 15:29 Dextrose (Dextrose 50%) 50 ml Q30M PRN IV Hypoglycemia 05/01/20 15:30 07/30/20 15:29 Docusate Sodium (Colace) 100 mg THREE TIMES A DAY ORAL 05/01/20 18:00 05/31/20 17:59 05/02/20 09:32 Insulin Aspart (NovoLOG) BEFORE MEALS AND HS SUBQ 05/01/20 16:30 07/30/20 16:29 05/03/20 12:21 Insulin Detemir (Levemir) 10 units Q12HR SUBQ 05/02/20 13:30 07/31/20 13:29 05/03/20 09:48 Isosorbide Mononitrate (Imdur) 30 mg DAILY ORAL 05/01/20 09:00 05/31/20 08:59 05/03/20 09:20 Lorazepam (Ativan 2mg/ml 1ml) 2 mg Q2H PRN IV For Anxiety 04/29/20 14:00 05/06/20 13:59 Nateglinide (Starlix) 120 mg TIAC ORAL 05/01/20 16:30 05/31/20 16:29 05/03/20 12:09 Nitroglycerin (Ntg) 0.4 mg Q5MIN X 3 DOSES PRN SL CHEST PAIN 04/30/20 22:45 05/30/20 22:44 Ondansetron HCl (Zofran) 4 mg Q6H PRN IVP Nausea & Vomiting 04/29/20 14:00 05/29/20 13:59 Pantoprazole (Protonix) 40 mg EVERY 12 HOURS ORAL 05/01/20 21:00 05/31/20 20:59 05/03/20 09:20 Polyethylene Glycol (Miralax) 17 gm BEDTIME ORAL 05/03/20 21:00 06/02/20 20:59 Polyethylene Glycol (Miralax) 17 gm DAILYPRN PRN ORAL Constipation 04/29/20 14:00 05/29/20 13:59 Sennosides (Senokot) 8.6 mg ONCE ORAL 05/04/20 09:00 05/04/20 10:00 Sodium Chloride 1,000 ml @ 75 mls/hr [id number] IV 04/29/20 17:00 05/29/20 16:59 05/03/20 09:49 Tramadol HCl (Ultram) 50 mg Q6H PRN ORAL For Pain 04/30/20 22:45 05/07/20 22:44 Warfarin Sodium (Coumadin per pharmacy) 1 ea DAILY PRN MISC Per rx protocol 04/30/20 22:45 05/30/20 22:44 Warfarin Sodium (Coumadin) 10 mg COUMADIN ORAL 05/02/20 17:00 05/03/20 17:01 05/02/20 16:47 Assessment/Plan Problems: (1) 2019 novel coronavirus disease (COVID-19) (2) Bacteremia due to Gram-negative bacteria (3) Sepsis (4) Atrial fibrillation, rapid (5) Diabetes mellitus (6) History of DVT (deep vein thrombosis) (7) Morbid obesity Assessment/Plan constipated, add Miralax and Senna repeat cxr in am afebrile, wbc still high iv abx, check sensitivity of GNR in blood titrate fio2 to sat of 92% respiratory treatment keep in monitored bed sliding scale dvt prophylaxis Bandar Brownlee MD May 03, 2020 13:42
--- NOTE | 2020-05-03 14:50 | Nephrology Progress Note ---
Assessment/Plan Problem List: (1) Renal failure (ARF), acute on chronic (2) Acute respiratory failure (3) Atrial fibrillation, rapid (4) Morbid obesity (5) Diabetes mellitus (6) NSTEMI (non-ST elevated myocardial infarction) Assessment 74-year-old female presents with acute respiratory failure she is morbidly obese Acute renal failure Underlying chronic kidney disease Chronic atrial fibrillation Diabetes mellitus/nephropathy History of DVT Sepsis Non-STEMI AK Morbid obesity Anemia Plan May 03: Labs reviewed. Renal parameters improving. Blood sugar better controlled. Will increase Levemir dose. Vitamin D level pending. Continue per consultants. May 02: Serum creatinine lowering. Levemir insulin added for high blood sugar. Norvasc added for better blood pressure control. Continue per consult ants. May 01: Serum creatinine 3. INR elevated. Hemoglobin lower. Continue normal saline 75 cc an hour. Starting Starlix for blood sugar control. Kidney ultrasound and 2D echocardiogram results noted. Per orders. Potassium supplement given. Continue to monitor renal parameters and electrolytes. April 30: We will start on renal diet medium carbs. Increase IV fluid to 100 cc an hour. 2D echocardiogram and kidney ultrasound pending. Continue to monitor renal parameters. Avoid nephrotoxic's. Keep the blood pressure and blood sugar in check. Previously: Anne catheter Urine studies Monitor electrolytes Kidney ultrasound Avoid nephrotoxic's 2D echocardiogram Albumin bolus Per orders Subjective ROS Limited/Unobtainable: No Constitutional: Reports: malaise, weakness Objective Objective Last 24 Hour Vital Signs Date Time Temp Pulse Resp B/P (MAP) Pulse Ox O2 Delivery O2 Flow Rate FiO2 05/03/20 12:00 98.2 81 18 130/75 (93) 100 05/03/20 12:00 56 05/03/20 09:20 77 138/85 05/03/20 09:20 138/85 05/03/20 09:00 Room Air 05/03/20 08:00 77 05/03/20 08:00 98.7 56 20 138/85 (102) 100 05/03/20 04:00 98.6 69 20 143/86 (105) 95 05/03/20 04:00 47 05/03/20 00:00 98.5 67 20 152/91 (111) 96 05/03/20 00:00 58 05/02/20 21:00 Nasal Cannula 2.0 05/02/20 20:00 98.4 83 21 150/83 (105) 96 05/02/20 20:00 61 05/02/20 16:00 98.0 60 22 139/82 (101) 98 05/02/20 16:00 59 Intake and Output 05/02/20 05/03/20 19:00 07:00 Intake Total 360 ml Output Total 400 ml 800 ml Balance -40 ml -800 ml Intake Oral 360 ml Output Urine Total 400 ml 800 ml Current Medications Medications (Trade) Dose Ordered Sig/Adria Route PRN Reason Start Time Stop Time Status Last Admin Dose Admin Acetaminophen (Tylenol) 650 mg Q4H PRN ORAL Temp >100.5 04/29/20 14:00 05/29/20 13:59 04/30/20 09:55 Albuterol/ Ipratropium (Combivent Respimat) 1 puff Q4H PRN INH Shortness of Breath 04/29/20 14:00 05/29/20 13:59 Amlodipine Besylate (Norvasc) 5 mg DAILY ORAL 05/03/20 09:00 06/02/20 08:59 05/03/20 09:20 Ascorbic Acid (Vitamin C) 500 mg DAILY ORAL 05/01/20 09:00 05/31/20 08:59 05/03/20 09:20 Aspirin (ASA) 81 mg DAILY ORAL 05/01/20 09:00 06/15/20 08:59 05/03/20 09:20 Ceftriaxone Sodium 2 gm/ Dextrose 55 ml @ 110 mls/hr Q24H IVPB 05/01/20 21:00 05/08/20 20:59 05/02/20 21:01 Dexamethasone Sodium Phosphate (Decadron 10mg/ ml Inj) 6 mg DAILY IV 04/30/20 09:00 05/08/20 09:01 05/03/20 09:21 Dextrose (Dextrose 50%) 25 ml Q30M PRN IV Hypoglycemia 05/01/20 15:30 07/30/20 15:29 Dextrose (Dextrose 50%) 50 ml Q30M PRN IV Hypoglycemia 05/01/20 15:30 07/30/20 15:29 Docusate Sodium (Colace) 100 mg THREE TIMES A DAY ORAL 05/01/20 18:00 05/31/20 17:59 05/02/20 09:32 Insulin Aspart (NovoLOG) BEFORE MEALS AND HS SUBQ 05/01/20 16:30 07/30/20 16:29 05/03/20 12:21 Insulin Detemir (Levemir) 10 units Q12HR SUBQ 05/02/20 13:30 07/31/20 13:29 05/03/20 09:48 Isosorbide Mononitrate (Imdur) 30 mg DAILY ORAL 05/01/20 09:00 05/31/20 08:59 05/03/20 09:20 Lorazepam (Ativan 2mg/ml 1ml) 2 mg Q2H PRN IV For Anxiety 04/29/20 14:00 05/06/20 13:59 Nateglinide (Starlix) 120 mg TIAC ORAL 05/01/20 16:30 05/31/20 16:29 05/03/20 12:09 Nitroglycerin (Ntg) 0.4 mg Q5MIN X 3 DOSES PRN SL CHEST PAIN 04/30/20 22:45 05/30/20 22:44 Ondansetron HCl (Zofran) 4 mg Q6H PRN IVP Nausea & Vomiting 04/29/20 14:00 05/29/20 13:59 Pantoprazole (Protonix) 40 mg EVERY 12 HOURS ORAL 05/01/20 21:00 05/31/20 20:59 05/03/20 09:20 Polyethylene Glycol (Miralax) 17 gm BEDTIME ORAL 05/03/20 21:00 06/02/20 20:59 Polyethylene Glycol (Miralax) 17 gm DAILYPRN PRN ORAL Constipation 04/29/20 14:00 05/29/20 13:59 Sennosides (Senokot) 8.6 mg ONCE ORAL 05/04/20 09:00 05/04/20 10:00 Sodium Chloride 1,000 ml @ 75 mls/hr [id number] IV 04/29/20 17:00 05/29/20 16:59 05/03/20 09:49 Tramadol HCl (Ultram) 50 mg Q6H PRN ORAL For Pain 04/30/20 22:45 05/07/20 22:44 Warfarin Sodium (Coumadin per pharmacy) 1 ea DAILY PRN MISC Per rx protocol 04/30/20 22:45 05/30/20 22:44 Warfarin Sodium (Coumadin) 10 mg COUMADIN ORAL 05/02/20 17:00 05/03/20 17:01 05/02/20 16:47 Laboratory Tests 05/03/20 07:30: White Blood Count 12.8H, Red Blood Count 3.67L, Hemoglobin 9.9L, Hematocrit 30.2L, Mean Corpuscular Volume 82, Mean Corpuscular Hemoglobin 26.9L, Mean Corpuscular Hemoglobin Concent 32.7, Red Cell Distribution Width 16.9H, Platelet Count 290, Mean Platelet Volume 10.2H, Neutrophils (%) (Auto) , Lymphocytes (%) (Auto) , Monocytes (%) (Auto) , Eosinophils (%) (Auto) , Basophils (%) (Auto) , Differential Total Cells Counted 100, Neutrophils % (Manual) 91H, Lymphocytes % (Manual) 4L, Monocytes % (Manual) 4, Eosinophils % (Manual) 1, Basophils % (Manual) 0, Band Neutrophils 0, Platelet Estimate Adequate, Platelet Morphology Normal, Hypochromasia 1+, Anisocytosis 1+, Vitamin D 25-Hydroxy [Pending], 25-Hy droxy Vitamin D2 [Pending], 25-Hydroxy Vitamin D3 [Pending] 05/03/20 07:38: Prothrombin Time 14.2H, Prothromb Time International Ratio 1.3H, Sodium Level 136, Potassium Level 4.3, Chloride Level 104, Carbon Dioxide Level 24, Blood Urea Nitrogen 70H, Creatinine 2.5H, Estimat Glomerular Filtration Rate 22.8, Glucose Level 289#H, Calcium Level 9.2, Phosphorus Level 2.9, Magnesium Level 2.0, Total Bilirubin 0.4, Aspartate Amino Transf (AST/SGOT) 12L, Alanine Aminotransferase (ALT/SGPT) 18, Alkaline Phosphatase 73, C-Reactive Protein, Quantitative 7.2H, Pro-B-Type Natriuretic Peptide 7081H, Total Protein 7.5, Albumin 2.7L, Globulin 4.8 Height (Feet): 5 Height (Inches): 6.00 Weight (Pounds): 350 General Appearance: no apparent distress Cardiovascular: normal rate Respiratory/Chest: decreased breath sounds Abdomen: distended Pantera Wallace MD May 03, 2020 14:49
--- NOTE | 2020-05-03 15:04 | Internal Med Progress Note ---
Subjective Physician Name Aleksandr Vega Attending Physician Aleksandr Vega MD Current Medications Medications (Trade) Dose Ordered Sig/Adria Route PRN Reason Start Time Stop Time Status Last Admin Dose Admin Acetaminophen (Tylenol) 650 mg Q4H PRN ORAL Temp >100.5 04/29/20 14:00 05/29/20 13:59 04/30/20 09:55 Albuterol/ Ipratropium (Combivent Respimat) 1 puff Q4H PRN INH Shortness of Breath 04/29/20 14:00 05/29/20 13:59 Amlodipine Besylate (Norvasc) 5 mg DAILY ORAL 05/03/20 09:00 06/02/20 08:59 05/03/20 09:20 Ascorbic Acid (Vitamin C) 500 mg DAILY ORAL 05/01/20 09:00 05/31/20 08:59 05/03/20 09:20 Aspirin (ASA) 81 mg DAILY ORAL 05/01/20 09:00 06/15/20 08:59 05/03/20 09:20 Ceftriaxone Sodium 2 gm/ Dextrose 55 ml @ 110 mls/hr Q24H IVPB 05/01/20 21:00 05/08/20 20:59 05/02/20 21:01 Dexamethasone Sodium Phosphate (Decadron 10mg/ ml Inj) 6 mg DAILY IV 04/30/20 09:00 05/08/20 09:01 05/03/20 09:21 Dextrose (Dextrose 50%) 25 ml Q30M PRN IV Hypoglycemia 05/01/20 15:30 07/30/20 15:29 Dextrose (Dextrose 50%) 50 ml Q30M PRN IV Hypoglycemia 05/01/20 15:30 07/30/20 15:29 Docusate Sodium (Colace) 100 mg THREE TIMES A DAY ORAL 05/01/20 18:00 05/31/20 17:59 05/02/20 09:32 Insulin Aspart (NovoLOG) BEFORE MEALS AND HS SUBQ 05/01/20 16:30 07/30/20 16:29 05/03/20 12:21 Insulin Detemir (Levemir) 15 units Q12HR SUBQ 05/03/20 21:00 07/31/20 13:29 Isosorbide Mononitrate (Imdur) 30 mg DAILY ORAL 05/01/20 09:00 05/31/20 08:59 05/03/20 09:20 Lorazepam (Ativan 2mg/ml 1ml) 2 mg Q2H PRN IV For Anxiety 04/29/20 14:00 05/06/20 13:59 Nateglinide (Starlix) 120 mg TIAC ORAL 05/01/20 16:30 05/31/20 16:29 05/03/20 12:09 Nitroglycerin (Ntg) 0.4 mg Q5MIN X 3 DOSES PRN SL CHEST PAIN 04/30/20 22:45 05/30/20 22:44 Ondansetron HCl (Zofran) 4 mg Q6H PRN IVP Nausea & Vomiting 04/29/20 14:00 05/29/20 13:59 Pantoprazole (Protonix) 40 mg EVERY 12 HOURS ORAL 05/01/20 21:00 05/31/20 20:59 05/03/20 09:20 Polyethylene Glycol (Miralax) 17 gm BEDTIME ORAL 05/03/20 21:00 06/02/20 20:59 Polyethylene Glycol (Miralax) 17 gm DAILYPRN PRN ORAL Constipation 04/29/20 14:00 05/29/20 13:59 Sennosides (Senokot) 8.6 mg ONCE ORAL 05/04/20 09:00 05/04/20 10:00 Sodium Chloride 1,000 ml @ 75 mls/hr [id number] IV 04/29/20 17:00 05/29/20 16:59 05/03/20 09:49 Tramadol HCl (Ultram) 50 mg Q6H PRN ORAL For Pain 04/30/20 22:45 05/07/20 22:44 Warfarin Sodium (Coumadin per pharmacy) 1 ea DAILY PRN MISC Per rx protocol 04/30/20 22:45 05/30/20 22:44 Warfarin Sodium (Coumadin) 10 mg COUMADIN ORAL 05/02/20 17:00 05/03/20 17:01 05/02/20 16:47 Allergies: Coded Allergies: CODEINE (Verified Allergy, Unknown, 10/10/19) Subjective awake, alert, responsive, denies any chest pain, less shortness of breath, WBC: 12.8. INR 1.3. Objective Last Vital Signs Date Time Temp Pulse Resp B/P (MAP) Pulse Ox O2 Delivery O2 Flow Rate FiO2 05/03/20 12:00 98.2 81 18 130/75 (93) 100 05/03/20 09:00 Room Air 05/02/20 21:00 2.0 04/29/20 15:28 30 Laboratory Tests Test 05/03/20 07:30 05/03/20 07:38 White Blood Count 12.8 K/UL (4.8-10.8) H Red Blood Count 3.67 M/UL (4.20-5.40) L Hemoglobin 9.9 G/DL (12.0-16.0) L Hematocrit 30.2 % (37.0-47.0) L Mean Corpuscular Volume 82 FL (80-99) Mean Corpuscular Hemoglobin 26.9 PG (27.0-31.0) L Mean Corpuscular Hemoglobin Concent 32.7 G/DL (32.0-36.0) Red Cell Distribution Width 16.9 % (11.6-14.8) H Platelet Count 290 K/UL (150-450) Mean Platelet Volume 10.2 FL (6.5-10.1) H Neutrophils (%) (Auto) % (45.0-75.0) Lymphocytes (%) (Auto) % (20.0-45.0) Monocytes (%) (Auto) % (1.0-10.0) Eosinophils (%) (Auto) % (0.0-3.0) Basophils (%) (Auto) % (0.0-2.0) Differential Total Cells Counted 100 Neutrophils % (Manual) 91 % (45-75) H Lymphocytes % (Manual) 4 % (20-45) L Monocytes % (Manual) 4 % (1-10) Eosinophils % (Manual) 1 % (0-3) Basophils % (Manual) 0 % (0-2) Band Neutrophils 0 % (0-8) Platelet Estimate Adequate Platelet Morphology Normal Hypochromasia 1+ Anisocytosis 1+ Vitamin D 25-Hydroxy Pending 25-Hydroxy Vitamin D2 Pending 25-Hydroxy Vitamin D3 Pending Prothrombin Time 14.2 SEC (9.30-11.50) H Prothromb Time International Ratio 1.3 (0.9-1.1) H Sodium Level 136 MMOL/L (136-145) Potassium Level 4.3 MMOL/L (3.5-5.1) Chloride Level 104 MMOL/L (98-107) Carbon Dioxide Level 24 MMOL/L (21-32) Blood Urea Nitrogen 70 mg/dL (7-18) H Creatinine 2.5 MG/DL (0.55-1.30) H Estimat Glomerular Filtration Rate 22.8 mL/min (>60) Glucose Level 289 MG/DL (74-106) #H Calcium Level 9.2 MG/DL (8.5-10.1) Phosphorus Level 2.9 MG/DL (2.5-4.9) Magnesium Level 2.0 MG/DL (1.8-2.4) Total Bilirubin 0.4 MG/DL (0.2-1.0) Aspartate Amino Transf (AST/SGOT) 12 U/L (15-37) L Alanine Aminotransferase (ALT/SGPT) 18 U/L (12-78) Alkaline Phosphatase 73 U/L (46-116) C-Reactive Protein, Quantitative 7.2 mg/dL (0.00-0.90) H Pro-B-Type Natriuretic Peptide 7081 pg/mL (0-125) H Total Protein 7.5 G/DL (6.4-8.2) Albumin 2.7 G/DL (3.4-5.0) L Globulin 4.8 g/dL Intake and Output 05/02/20 05/03/20 19:00 07:00 Intake Total 360 ml Output Total 400 ml 800 ml Balance -40 ml -800 ml Intake Oral 360 ml Output Urine Total 400 ml 800 ml Objective General: No acute distress, awake and alert HEENT: NCAT, sclera anicteric, PERRL, EOMI. Neck: Supple, no significant jugular venous distention, Lungs: fair inspiratory effort, decreased air at the bases, no Wheeze or Rales. Heart: Regular rate and rhythm, normal S1/S2, no murmurs/ Abdomen: soft, nontender, nondistended. Normoactive bowel sounds, morbid obesity. / Rectal: Refused and deferred. Extremities: No Cyanosis or clubbing, decreased edema bilateral lower extremities. Neuro: A&O x 3, Able to move all extremities Skin: warm, no rashes or lesions Psych: Normal mood and affect Assessment/Plan Assessment/Plan 1. Acute hypoxemic respiratory failure. 2. COVID-19 pneumonia. 3. Acute renal failure on chronic renal insufficiency. 4. E. Coli Sepsis / Bacteremia. 5. Acute E. Coli urinary tract infection. 6. Morbid obesity. 7. Chronic atrial fibrillation with rapid ventricular rate. 8. Diabetes type 2. 9. Coronary artery disease with prior history of myocardial infarction. 10. Non-ST elevation myocardial infarction, most likely secondary to demand ischemia. 11. Anemia of chronic kidney disease. 12. History of DVT of lower extremity. 13. Chronic Congestive heart failure with reduced ejection fraction. 14. Hypertension. 15. Chronic lymphedema of lower extremity. PLAN: transfer to Med / Surg. Antibiotic: Rocephin IV, Decadron IV. Dr. Keiry Amezquita. from Infectious Disease. Dr. Brownlee from Pulmonary and Critical Care Dr. Pantera Wallace from Nephrology. Code status: Full Code. DVT prophylaxis: Coumadin follow-up with cultures and laboratory in the morning. CODE STATUS: Full code. Aleksandr Vega MD May 03, 2020 15:04
[2020-05-03 16:00] VITALS: BP 135/61
[2020-05-03] MEDS: Warfarin Sodium 5mg ORAL SCH (16:56)
[2020-05-03 20:00] VITALS: BP 144/82
[2020-05-03] MEDS: cefTRIAXone 2 GM in D5W 55 ML IVPB SCH (20:30)
[2020-05-03] MEDS: Miralax 17gm pkt ORAL SCH ×2 (20:30→20:41)
--- NOTE | 2020-05-03 21:00 | Cardiology Progress Note ---
Assessment/Plan Assessment/Plan COVID pneumonia, seems to be stable a fib, rate is controlled, antiocagulation with Warfarin per pharmacy yesterday INR is 1.3 no evidecen of acute CHF Subjective Subjective The patient is complaining on weakness Objective Last 24 Hour Vital Signs Date Time Temp Pulse Resp B/P (MAP) Pulse Ox O2 Delivery O2 Flow Rate FiO2 05/03/20 16:00 60 05/03/20 16:00 98.1 91 22 135/61 (85) 98 05/03/20 12:00 98.2 81 18 130/75 (93) 100 05/03/20 12:00 56 05/03/20 09:20 77 138/85 05/03/20 09:20 138/85 05/03/20 09:00 Room Air 05/03/20 08:00 77 05/03/20 08:00 98.7 56 20 138/85 (102) 100 05/03/20 04:00 98.6 69 20 143/86 (105) 95 05/03/20 04:00 47 05/03/20 00:00 98.5 67 20 152/91 (111) 96 05/03/20 00:00 58 05/02/20 21:00 Nasal Cannula 2.0 General Appearance: lethargic EENT: PERRL/EOMI Neck: JVD Rhythm: Afib Cardiovascular: bradycardia Respiratory/Chest: crackles/rales Abdomen: no mass Extremities: trace edema Intake and Output 05/02/20 05/03/20 19:00 07:00 Intake Total 360 ml Output Total 400 ml 800 ml Balance -40 ml -800 ml Intake Oral 360 ml Output Urine Total 400 ml 800 ml Laboratory Tests Test 05/03/20 07:30 05/03/20 07:38 05/03/20 16:52 White Blood Count 12.8 K/UL (4.8-10.8) H Red Blood Count 3.67 M/UL (4.20-5.40) L Hemoglobin 9.9 G/DL (12.0-16.0) L Hematocrit 30.2 % (37.0-47.0) L Mean Corpuscular Volume 82 FL (80-99) Mean Corpuscular Hemoglobin 26.9 PG (27.0-31.0) L Mean Corpuscular Hemoglobin Concent 32.7 G/DL (32.0-36.0) Red Cell Distribution Width 16.9 % (11.6-14.8) H Platelet Count 290 K/UL (150-450) Mean Platelet Volume 10.2 FL (6.5-10.1) H Neutrophils (%) (Auto) % (45.0-75.0) Lymphocytes (%) (Auto) % (20.0-45.0) Monocytes (%) (Auto) % (1.0-10.0) Eosinophils (%) (Auto) % (0.0-3.0) Basophils (%) (Auto) % (0.0-2.0) Differential Total Cells Counted 100 Neutrophils % (Manual) 91 % (45-75) H Lymphocytes % (Manual) 4 % (20-45) L Monocytes % (Manual) 4 % (1-10) Eosinophils % (Manual) 1 % (0-3) Basophils % (Manual) 0 % (0-2) Band Neutrophils 0 % (0-8) Platelet Estimate Adequate Platelet Morphology Normal Hypochromasia 1+ Anisocytosis 1+ Vitamin D 25-Hydroxy Pending 25-Hydroxy Vitamin D2 Pending 25-Hydroxy Vitamin D3 Pending Prothrombin Time 14.2 SEC (9.30-11.50) H Prothromb Time International Ratio 1.3 (0.9-1.1) H Sodium Level 136 MMOL/L (136-145) Potassium Level 4.3 MMOL/L (3.5-5.1) Chloride Level 104 MMOL/L (98-107) Carbon Dioxide Level 24 MMOL/L (21-32) Blood Urea Nitrogen 70 mg/dL (7-18) H Creatinine 2.5 MG/DL (0.55-1.30) H Estimat Glomerular Filtration Rate 22.8 mL/min (>60) Glucose Level 289 MG/DL (74-106) #H Calcium Level 9.2 MG/DL (8.5-10.1) Phosphorus Level 2.9 MG/DL (2.5-4.9) Magnesium Level 2.0 MG/DL (1.8-2.4) Total Bilirubin 0.4 MG/DL (0.2-1.0) Aspartate Amino Transf (AST/SGOT) 12 U/L (15-37) L Alanine Aminotransferase (ALT/SGPT) 18 U/L (12-78) Alkaline Phosphatase 73 U/L (46-116) C-Reactive Protein, Quantitative 7.2 mg/dL (0.00-0.90) H Pro-B-Type Natriuretic Peptide 7081 pg/mL (0-125) H Total Protein 7.5 G/DL (6.4-8.2) Albumin 2.7 G/DL (3.4-5.0) L Globulin 4.8 g/dL POC Whole Blood Glucose 337 MG/DL (74-106) H Marisa Hicks MD May 03, 2020 20:59
[2020-05-04] VITALS: BP 148/83
[2020-05-04 04:00] VITALS: BP 150/82
[2020-05-04] MEDS: NovoLOG Insulin Flexpen SUBQ SCH ×4 (06:06→21:07)
[2020-05-04 08:00] VITALS: BP 144/90
--- NOTE | 2020-05-04 08:05 | Infectious Diseases Prog Note ---
Assessment/Plan 74yo F with: Sepsis E.coli bacteremia 2/2 UTI COVID pna Acute hypoxia 2/2 COVID pna Leukocytosis to 24, improving 04/29 COVID rapid + BCx +E.coli S-CTX UA+, UCx +E.coli S-CTX CXR: No acute process LG on CKD, Cr in 3s, increasing >> improved slightly Afib DM Obesity Plan: Cont CTX 2g IV daily #4 for E.coli bacteremia, tentative 10d course to be 04/29 - 1/2 Cont dexamethasone #10/15 - will stop if pt remains on RA Not candidate for RDV given CrCl No convalescent plasma available at this institution, and not shown to improve mortality Trend WBC 05/01 SP laisha #2 Monitor CBC/CMP Monitor temp curve, hemodynamics Monitor resp status D/w RN Thank you for this consult. [facility] will continue to follow. Subjective Allergies: Coded Allergies: CODEINE (Verified Allergy, Unknown, 10/10/19) AF NAD on RA Doing well WBC 14 from 12 Objective Last 24 Hour Vital Signs Date Time Temp Pulse Resp B/P (MAP) Pulse Ox O2 Delivery O2 Flow Rate FiO2 05/04/20 04:00 98.6 64 20 150/82 (104) 98 05/04/20 04:00 50 05/04/20 00:00 98.3 63 18 148/83 (104) 95 05/04/20 00:00 57 05/03/20 21:00 Room Air 05/03/20 20:00 97.6 73 18 144/82 (102) 96 05/03/20 20:00 74 05/03/20 16:00 60 05/03/20 16:00 98.1 91 22 135/61 (85) 98 05/03/20 12:00 98.2 81 18 130/75 (93) 100 05/03/20 12:00 56 05/03/20 09:20 77 138/85 05/03/20 09:20 138/85 05/03/20 09:00 Room Air Height (Feet): 5 Height (Inches): 6.00 Weight (Pounds): 350 Gen: NAD HEENT: NCAT Pulm: BL chest rise Abd: Non-distended Ext: No c/c/e Skin: No visible rashes Neuro: Awake Laboratory Tests Test 05/03/20 16:52 POC Whole Blood Glucose 337 MG/DL (74-106) H Current Medications Medications (Trade) Dose Ordered Sig/Adria Route PRN Reason Start Time Stop Time Status Last Admin Dose Admin Acetaminophen (Tylenol) 650 mg Q4H PRN ORAL Temp >100.5 04/29/20 14:00 05/29/20 13:59 04/30/20 09:55 Albuterol/ Ipratropium (Combivent Respimat) 1 puff Q4H PRN INH Shortness of Breath 04/29/20 14:00 05/29/20 13:59 Amlodipine Besylate (Norvasc) 5 mg DAILY ORAL 05/03/20 09:00 06/02/20 08:59 05/03/20 09:20 Ascorbic Acid (Vitamin C) 500 mg DAILY ORAL 05/01/20 09:00 05/31/20 08:59 05/03/20 09:20 Aspirin (ASA) 81 mg DAILY ORAL 05/01/20 09:00 06/15/20 08:59 05/03/20 09:20 Ceftriaxone Sodium 2 gm/ Dextrose 55 ml @ 110 mls/hr Q24H IVPB 05/01/20 21:00 05/08/20 20:59 05/03/20 20:30 Dexamethasone Sodium Phosphate (Decadron 10mg/ ml Inj) 6 mg DAILY IV 04/30/20 09:00 05/08/20 09:01 05/03/20 09:21 Dextrose (Dextrose 50%) 25 ml Q30M PRN IV Hypoglycemia 05/01/20 15:30 07/30/20 15:29 Dextrose (Dextrose 50%) 50 ml Q30M PRN IV Hypoglycemia 05/01/20 15:30 07/30/20 15:29 Docusate Sodium (Colace) 100 mg THREE TIMES A DAY ORAL 05/01/20 18:00 05/31/20 17:59 05/02/20 09:32 Insulin Aspart (NovoLOG) BEFORE MEALS AND HS SUBQ 05/01/20 16:30 07/30/20 16:29 05/04/20 06:06 Insulin Detemir (Levemir) 15 units Q12HR SUBQ 05/03/20 21:00 07/31/20 13:29 05/03/20 20:43 Isosorbide Mononitrate (Imdur) 30 mg DAILY ORAL 05/01/20 09:00 05/31/20 08:59 05/03/20 09:20 Lorazepam (Ativan 2mg/ml 1ml) 2 mg Q2H PRN IV For Anxiety 04/29/20 14:00 05/06/20 13:59 Nateglinide (Starlix) 120 mg TIAC ORAL 05/01/20 16:30 05/31/20 16:29 05/04/20 06:05 Nitroglycerin (Ntg) 0.4 mg Q5MIN X 3 DOSES PRN SL CHEST PAIN 04/30/20 22:45 05/30/20 22:44 Ondansetron HCl (Zofran) 4 mg Q6H PRN IVP Nausea & Vomiting 04/29/20 14:00 05/29/20 13:59 Pantoprazole (Protonix) 40 mg EVERY 12 HOURS ORAL 05/01/20 21:00 05/31/20 20:59 05/03/20 20:30 Polyethylene Glycol (Miralax) 17 gm BEDTIME ORAL 05/03/20 21:00 06/02/20 20:59 Polyethylene Glycol (Miralax) 17 gm DAILYPRN PRN ORAL Constipation 04/29/20 14:00 05/29/20 13:59 Sennosides (Senokot) 8.6 mg ONCE ORAL 05/04/20 09:00 05/04/20 10:00 Sodium Chloride 1,000 ml @ 75 mls/hr [id number] IV 04/29/20 17:00 05/29/20 16:59 05/03/20 23:57 Tramadol HCl (Ultram) 50 mg Q6H PRN ORAL For Pain 04/30/20 22:45 05/07/20 22:44 Warfarin Sodium (Coumadin per pharmacy) 1 ea DAILY PRN MISC Per rx protocol 04/30/20 22:45 05/30/20 22:44 Keiry Amezquita M.D. May 04, 2020 08:05
[2020-05-04] MEDS ORDERED: Tubing IV Secondary IV ONE (08:15)
[2020-05-04] MEDS ORDERED: D5 1/2NS 1000ml IV ONE (08:15)
[2020-05-04] MEDS: Levemir Flexpen SUBQ SCH ×2 (09:00→22:09)
[2020-05-04] MEDS ORDERED: Sennosides 8.6mg tab ORAL SCH (09:00)
[2020-05-04 09:04] LABS: HEMATOCRIT 33.1 % (37.0-47.0); HEMOGLOBIN 10.7 G/DL (12.0-16.0); MEAN CORPUSCULAR VOLUME 83 FL (80-99); PLATELET COUNT 345 K/UL (150-450); RED BLOOD COUNT 3.98 M/UL (4.20-5.40); RED CELL DISTRIBUTION WIDTH 16.8 % (11.6-14.8)
[2020-05-04 09:20] LABS: INR 3.1 (0.9-1.1)
--- NOTE | 2020-05-04 09:53 | Diagnostic Imaging Report ---
Indication: Dyspnea Technique: One view of the chest Comparison: 04/30/2020 Findings: The heart is enlarged. The lungs and pleural spaces are clear. Previously demonstrated interstitial congestion has resolved. There is minimal atelectasis at the right costophrenic sulcus Impression: Cardiomegaly. No acute process
[2020-05-04 10:02] LABS: ALBUMIN 2.7 G/DL (3.4-5.0); ALBUMIN/GLOBULIN RATIO 0.6 (1.0-2.7); BILIRUBIN,TOTAL 0.4 MG/DL (0.2-1.0); CALCIUM 9.3 MG/DL (8.5-10.1); CREATININE 2.4 MG/DL (0.55-1.30); PHOSPHORUS 3.3 MG/DL (2.5-4.9); POTASSIUM 4.5 MMOL/L (3.5-5.1)
[2020-05-04] MEDS: Aspirin Baby 81mg ORAL SCH (11:09)
[2020-05-04] MEDS: Imdur 30mg tab ORAL SCH (11:09)
[2020-05-04] MEDS: Ascorbic Acid 500mg tab ORAL SCH (11:09)
[2020-05-04] MEDS: Docusate 100mg cap ORAL SCH ×3 (11:12→18:00)
--- NOTE | 2020-05-04 11:15 | Pulmonology Progress Note ---
Subjective ROS Limited/Unobtainable: No Interval Events: doing better Allergies: Coded Allergies: CODEINE (Verified Allergy, Unknown, 10/10/19) Objective Last 24 Hour Vital Signs Date Time Temp Pulse Resp B/P (MAP) Pulse Ox O2 Delivery O2 Flow Rate FiO2 05/04/20 11:09 45 150/82 05/04/20 11:09 150/82 05/04/20 08:00 45 05/04/20 04:00 98.6 64 20 150/82 (104) 98 05/04/20 04:00 50 05/04/20 00:00 98.3 63 18 148/83 (104) 95 05/04/20 00:00 57 05/03/20 21:00 Room Air 05/03/20 20:00 97.6 73 18 144/82 (102) 96 05/03/20 20:00 74 05/03/20 16:00 60 05/03/20 16:00 98.1 91 22 135/61 (85) 98 05/03/20 12:00 98.2 81 18 130/75 (93) 100 05/03/20 12:00 56 Intake and Output 05/03/20 05/04/20 19:00 07:00 Intake Total 120 ml Output Total 1200 ml 2000 ml Balance -1080 ml -2000 ml Intake Oral 120 ml Output Urine Total 1200 ml 2000 ml # Voids 3 General Appearance: WD/WN HEENT: normocephalic, atraumatic Respiratory: chest wall non-tender, rhonchi - left, rhonchi - right Cardiovascular: normal peripheral pulses, normal rate, regular rhythm Abdomen: normal bowel sounds, soft, non tender, no organomegaly Genitourinary: normal external genitalia Extremities: no cyanosis 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 II-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 grossly normal Laboratory Tests 05/03/20 16:52: POC Whole Blood Glucose 337H 05/04/20 08:25: White Blood Count 14.0H, Red Blood Count 3.98L, Hemoglobin 10.7L, Hematocrit 33.1L, Mean Corpuscular Volume 83, Mean Corpuscular Hemoglobin 27.0, Mean Corpuscular Hemoglobin Concent 32.4, Red Cell Distribution Width 16.8H, Platelet Count 345, Mean Platelet Volume 10.8H, Neutrophils (%) (Auto) , Lymphocytes (%) (Auto) , Monocytes (%) (Auto) , Eosinophils (%) (Auto) , Basophils (%) (Auto) , Neutrophils % (Manual) [Pending], Lymphocytes % (Manual) [Pending], Platelet Estimate [Pending], Platelet Morphology [Pending], Erythrocyte Sedimentation Rate [Pending], Prothrombin Time 31.4H, Prothromb Time International Ratio 3.1H, Sodium Level 136, Potassium Level 4.5, Chloride Level 104, Carbon Dioxide Level 23, Anion Gap 9, Blood Urea Nitrogen 71H, Creatinine 2.4H, Estimat Glomerular Filtration Rate 23.9, Glucose Level 316H, Calcium Level 9.3, Phosphorus Level 3.3, Magnesium Level 2.0, Total Bilirubin 0.4, Aspartate Amino Transf (AST/SGOT) 23, Alanine Aminotransferase (ALT/SGPT) 25, Alkaline Phosphatase 76, C-Reactive Protein, Quantitative 4.2H, Total Protein 7.5, Albumin 2.7L, Globulin 4.8, Albumin/Globulin Ratio 0.6L Current Medications Medications (Trade) Dose Ordered Sig/Adria Route PRN Reason Start Time Stop Time Status Last Admin Dose Admin Acetaminophen (Tylenol) 650 mg Q4H PRN ORAL Temp >100.5 04/29/20 14:00 05/29/20 13:59 04/30/20 09:55 Albuterol/ Ipratropium (Combivent Respimat) 1 puff Q4H PRN INH Shortness of Breath 04/29/20 14:00 05/29/20 13:59 Amlodipine Besylate (Norvasc) 5 mg DAILY ORAL 05/03/20 09:00 06/02/20 08:59 05/04/20 11:09 Ascorbic Acid (Vitamin C) 500 mg DAILY ORAL 05/01/20 09:00 05/31/20 08:59 05/04/20 11:09 Aspirin (ASA) 81 mg DAILY ORAL 05/01/20 09:00 06/15/20 08:59 05/04/20 11:09 Ceftriaxone Sodium 2 gm/ Dextrose 55 ml @ 110 mls/hr Q24H IVPB 05/01/20 21:00 05/09/20 23:59 05/03/20 20:30 Dexamethasone Sodium Phosphate (Decadron 10mg/ ml Inj) 6 mg DAILY IV 04/30/20 09:00 05/08/20 09:01 05/03/20 09:21 Dextrose (Dextrose 50%) 25 ml Q30M PRN IV Hypoglycemia 05/01/20 15:30 07/30/20 15:29 Dextrose (Dextrose 50%) 50 ml Q30M PRN IV Hypoglycemia 05/01/20 15:30 07/30/20 15:29 Docusate Sodium (Colace) 100 mg THREE TIMES A DAY ORAL 05/01/20 18:00 05/31/20 17:59 05/04/20 11:12 Insulin Aspart (NovoLOG) BEFORE MEALS AND HS SUBQ 05/01/20 16:30 07/30/20 16:29 05/04/20 06:06 Insulin Detemir (Levemir) 15 units Q12HR SUBQ 05/03/20 21:00 07/31/20 13:29 05/03/20 20:43 Isosorbide Mononitrate (Imdur) 30 mg DAILY ORAL 05/01/20 09:00 05/31/20 08:59 05/04/20 11:09 Lorazepam (Ativan 2mg/ml 1ml) 2 mg Q2H PRN IV For Anxiety 04/29/20 14:00 05/06/20 13:59 Nateglinide (Starlix) 120 mg TIAC ORAL 05/01/20 16:30 05/31/20 16:29 05/04/20 06:05 Nitroglycerin (Ntg) 0.4 mg Q5MIN X 3 DOSES PRN SL CHEST PAIN 04/30/20 22:45 05/30/20 22:44 Ondansetron HCl (Zofran) 4 mg Q6H PRN IVP Nausea & Vomiting 04/29/20 14:00 05/29/20 13:59 Pantoprazole (Protonix) 40 mg EVERY 12 HOURS ORAL 05/01/20 21:00 05/31/20 20:59 05/04/20 11:10 Polyethylene Glycol (Miralax) 17 gm BEDTIME ORAL 05/03/20 21:00 06/02/20 20:59 Polyethylene Glycol (Miralax) 17 gm DAILYPRN PRN ORAL Constipation 04/29/20 14:00 05/29/20 13:59 Sodium Chloride 1,000 ml @ 75 mls/hr [id number] IV 04/29/20 17:00 05/29/20 16:59 05/03/20 23:57 Tramadol HCl (Ultram) 50 mg Q6H PRN ORAL For Pain 04/30/20 22:45 05/07/20 22:44 Warfarin Sodium (Coumadin per pharmacy) 1 ea DAILY PRN MISC Per rx protocol 04/30/20 22:45 05/30/20 22:44 Assessment/Plan Problems: (1) 2019 novel coronavirus disease (COVID-19) (2) Bacteremia due to Gram-negative bacteria (3) Sepsis (4) Atrial fibrillation, rapid (5) Diabetes mellitus (6) History of DVT (deep vein thrombosis) (7) Morbid obesity Assessment/Plan cxr 05/04: Cardiomegaly. No acute process afebrile, wbc still high iv abx, as by ID titrate fio2 to sat of 92% respiratory treatment keep in monitored bed sliding scale dvt prophylaxis Bandar Brownlee MD May 04, 2020 11:15
--- NOTE | 2020-05-04 11:54 | Nephrology Progress Note ---
Assessment/Plan Problem List: (1) Renal failure (ARF), acute on chronic (2) Acute respiratory failure (3) Atrial fibrillation, rapid (4) Morbid obesity (5) Diabetes mellitus (6) NSTEMI (non-ST elevated myocardial infarction) Assessment 74-year-old female presents with acute respiratory failure she is morbidly obese Acute renal failure Underlying chronic kidney disease Chronic atrial fibrillation Diabetes mellitus/nephropathy History of DVT Sepsis Non-STEMI [place] Morbid obesity Anemia Plan May 04: Labs reviewed. Serum creatinine appears to be baseline. Levemir dose is increased. Continue to monitor renal parameters and electrolytes. Continue per consultants. May 03: Labs reviewed. Renal parameters improving. Blood sugar better controlled. Will increase Levemir dose. Vitamin D level pending. Continue per consultants. May 02: Serum creatinine lowering. Levemir insulin added for high blood sugar. Norvasc added for better blood pressure control. Continue per consultants. May 01: Serum creatinine 3. INR elevated. Hemoglobin lower. Continue normal saline 75 cc an hour. Starting Starlix for blood sugar control. Kidney ultrasound and 2D echocardiogram results noted. Per orders. Potassium supplement given. Continue to monitor renal parameters and electrolytes. April 30: We will start on renal diet medium carbs. Increase IV fluid to 100 cc an hour. 2D echocardiogram and kidney ultrasound pending. Continue to monitor renal parameters. Avoid nephrotoxic's. Keep the blood pressure and blood sugar in check. Previously: Anne catheter Urine studies Monitor electrolytes Kidney ultrasound Avoid nephrotoxic's 2D echocardiogram Albumin bolus Per orders Subjective ROS Limited/Unobtainable: No Constitutional: Reports: malaise Objective Objective Last 24 Hour Vital Signs Date Time Temp Pulse Resp B/P (MAP) Pulse Ox O2 Delivery O2 Flow Rate FiO2 05/04/20 11:09 45 150/82 05/04/20 11:09 150/82 05/04/20 09:00 Room Air 05/04/20 08:00 98.1 70 20 144/90 (108) 97 05/04/20 08:00 45 05/04/20 04:00 98.6 64 20 150/82 (104) 98 05/04/20 04:00 50 05/04/20 00:00 98.3 63 18 148/83 (104) 95 05/04/20 00:00 57 05/03/20 21:00 Room Air 05/03/20 20:00 97.6 73 18 144/82 (102) 96 05/03/20 20:00 74 05/03/20 16:00 60 05/03/20 16:00 98.1 91 22 135/61 (85) 98 05/03/20 12:00 98.2 81 18 130/75 (93) 100 05/03/20 12:00 56 Intake and Output 05/03/20 05/04/20 19:00 07:00 Intake Total 120 ml Output Total 1200 ml 2000 ml Balance -1080 ml -2000 ml Intake Oral 120 ml Output Urine Total 1200 ml 2000 ml # Voids 3 Laboratory Tests 05/03/20 16:52: POC Whole Blood Glucose 337H 05/04/20 08:25: White Blood Count 14.0H, Red Blood Count 3.98L, Hemoglobin 10.7L, Hematocrit 33.1L, Mean Corpuscular Volume 83, Mean Corpuscular Hemoglobin 27.0, Mean Corpuscular Hemoglobin Concent 32.4, Red Cell Distribution Width 16.8H, Platelet Count 345, Mean Platelet Volume 10.8H, Neutrophils (%) (Auto) , Lymphocytes (%) (Auto) , Monocytes (%) (Auto) , Eosinophils (%) (Auto) , Basophils (%) (Auto) , Differential Total Cells Counted 100, Neutrophils % (Manual) 86H, Lymphocytes % (Manual) 10L, Monocytes % (Manual) 4, Eosinophils % (Manual) 0, Basophils % (Manual) 0, Band Neutrophils 0, Platelet Estimate Adequate, Platelet Morphology Normal, Anisocytosis 1+, Erythrocyte Sedimentation Rate 78H, Prothrombin Time 31.4H, Prothromb Time International Ratio 3.1H, Sodium Level 136, Potassium Level 4.5, Chloride Level 104, Carbon Dioxide Level 23, Anion Gap 9, Blood Urea Nitrogen 71H, Creatinine 2.4H, Estimat Glomerular Filtration Rate 23.9, Glucose Level 316H, Calcium Level 9.3, Phosphorus Level 3.3, Magnesium Level 2.0, Total Bilirubin 0.4, Aspartate Amino Transf (AST/SGOT) 23, Alanine Aminotransferase (ALT/SGPT) 25, Alkaline Phosphatase 76, C-Reactive Protein, Quantitative 4.2H, Total Protein 7.5, Albumin 2.7L, Globulin 4.8, Albumin/Globulin Ratio 0.6L 05/04/20 11:50: POC Whole Blood Glucose [Pending] Height (Feet): 5 Height (Inches): 6.00 Weight (Pounds): 350 General Appearance: no apparent distress Cardiovascular: bradycardia Respiratory/Chest: decreased breath sounds Abdomen: soft, distended Pantera Wallace MD May 04, 2020 11:54
[2020-05-04 12:00] VITALS: BP 122/86
[2020-05-04] MEDS: dexAMETHasone 10mg/ml Inj IV SCH (12:37)
--- NOTE | 2020-05-04 15:53 | Internal Med Progress Note ---
Subjective Physician Name Aleksandr Vega Attending Physician Aleksandr Vega MD Current Medications Medications (Trade) Dose Ordered Sig/Adria Route PRN Reason Start Time Stop Time Status Last Admin Dose Admin Acetaminophen (Tylenol) 650 mg Q4H PRN ORAL Temp >100.5 04/29/20 14:00 05/29/20 13:59 04/30/20 09:55 Albuterol/ Ipratropium (Combivent Respimat) 1 puff Q4H PRN INH Shortness of Breath 04/29/20 14:00 05/29/20 13:59 Amlodipine Besylate (Norvasc) 5 mg BID ORAL 05/04/20 18:00 06/02/20 08:59 Ascorbic Acid (Vitamin C) 500 mg DAILY ORAL 05/01/20 09:00 05/31/20 08:59 05/04/20 11:09 Aspirin (ASA) 81 mg DAILY ORAL 05/01/20 09:00 06/15/20 08:59 05/04/20 11:09 Ceftriaxone Sodium 2 gm/ Dextrose 55 ml @ 110 mls/hr Q24H IVPB 05/01/20 21:00 05/09/20 23:59 05/03/20 20:30 Dexamethasone Sodium Phosphate (Decadron 10mg/ ml Inj) 6 mg DAILY IV 04/30/20 09:00 05/08/20 09:01 05/04/20 12:37 Dextrose (Dextrose 50%) 25 ml Q30M PRN IV Hypoglycemia 05/01/20 15:30 07/30/20 15:29 Dextrose (Dextrose 50%) 50 ml Q30M PRN IV Hypoglycemia 05/01/20 15:30 07/30/20 15:29 Docusate Sodium (Colace) 100 mg THREE TIMES A DAY ORAL 05/01/20 18:00 05/31/20 17:59 05/04/20 11:12 Insulin Aspart (NovoLOG) BEFORE MEALS AND HS SUBQ 05/01/20 16:30 07/30/20 16:29 05/04/20 12:35 Insulin Detemir (Levemir) 20 units Q12HR SUBQ 05/04/20 21:00 07/31/20 13:29 Isosorbide Mononitrate (Imdur) 30 mg DAILY ORAL 05/01/20 09:00 05/31/20 08:59 05/04/20 11:09 Lorazepam (Ativan 2mg/ml 1ml) 2 mg Q2H PRN IV For Anxiety 04/29/20 14:00 05/06/20 13:59 Nateglinide (Starlix) 120 mg TIAC ORAL 05/01/20 16:30 05/31/20 16:29 05/04/20 06:05 Nitroglycerin (Ntg) 0.4 mg Q5MIN X 3 DOSES PRN SL CHEST PAIN 04/30/20 22:45 05/30/20 22:44 Ondansetron HCl (Zofran) 4 mg Q6H PRN IVP Nausea & Vomiting 04/29/20 14:00 05/29/20 13:59 Pantoprazole (Protonix) 40 mg EVERY 12 HOURS ORAL 05/01/20 21:00 05/31/20 20:59 05/04/20 11:10 Polyethylene Glycol (Miralax) 17 gm BEDTIME ORAL 05/03/20 21:00 06/02/20 20:59 Polyethylene Glycol (Miralax) 17 gm DAILYPRN PRN ORAL Constipation 04/29/20 14:00 05/29/20 13:59 Tramadol HCl (Ultram) 50 mg Q6H PRN ORAL For Pain 04/30/20 22:45 05/07/20 22:44 Warfarin Sodium (Coumadin per pharmacy) 1 ea DAILY PRN MISC Per rx protocol 04/30/20 22:45 05/30/20 22:44 Allergies: Coded Allergies: CODEINE (Verified Allergy, Unknown, 10/10/19) Subjective awake, alert, responsive, denies any chest pain, less shortness of breath, WBC: 14.1. INR 3.1. Objective Last Vital Signs Date Time Temp Pulse Resp B/P (MAP) Pulse Ox O2 Delivery O2 Flow Rate FiO2 05/04/20 12:00 98.2 68 19 122/86 (98) 98 05/04/20 09:00 Room Air 05/02/20 21:00 2.0 04/29/20 15:28 30 Laboratory Tests Test 05/03/20 16:52 05/04/20 08:25 05/04/20 11:50 POC Whole Blood Glucose 337 MG/DL (74-106) H Pending White Blood Count 14.0 K/UL (4.8-10.8) H Red Blood Count 3.98 M/UL (4.20-5.40) L Hemoglobin 10.7 G/DL (12.0-16.0) L Hematocrit 33.1 % (37.0-47.0) L Mean Corpuscular Volume 83 FL (80-99) Mean Corpuscular Hemoglobin 27.0 PG (27.0-31.0) Mean Corpuscular Hemoglobin Concent 32.4 G/DL (32.0-36.0) Red Cell Distribution Width 16.8 % (11.6-14.8) H Platelet Count 345 K/UL (150-450) Mean Platelet Volume 10.8 FL (6.5-10.1) H Neutrophils (%) (Auto) % (45.0-75.0) Lymphocytes (%) (Auto) % (20.0-45.0) Monocytes (%) (Auto) % (1.0-10.0) Eosinophils (%) (Auto) % (0.0-3.0) Basophils (%) (Auto) % (0.0-2.0) Differential Total Cells Counted 100 Neutrophils % (Manual) 86 % (45-75) H Lymphocytes % (Manual) 10 % (20-45) L Monocytes % (Manual) 4 % (1-10) Eosinophils % (Manual) 0 % (0-3) Basophils % (Manual) 0 % (0-2) Band Neutrophils 0 % (0-8) Platelet Estimate Adequate Platelet Morphology Normal Anisocytosis 1+ Erythrocyte Sedimentation Rate 78 MM/HR (0-30) H Prothrombin Time 31.4 SEC (9.30-11.50) H Prothromb Time International Ratio 3.1 (0.9-1.1) H Sodium Level 136 MMOL/L (136-145) Potassium Level 4.5 MMOL/L (3.5-5.1) Chloride Level 104 MMOL/L (98-107) Carbon Dioxide Level 23 MMOL/L (21-32) Anion Gap 9 mmol/L (5-15) Blood Urea Nitrogen 71 mg/dL (7-18) H Creatinine 2.4 MG/DL (0.55-1.30) H Estimat Glomerular Filtration Rate 23.9 mL/min (>60) Glucose Level 316 MG/DL (74-106) H Calcium Level 9.3 MG/DL (8.5-10.1) Phosphorus Level 3.3 MG/DL (2.5-4.9) Magnesium Level 2.0 MG/DL (1.8-2.4) Total Bilirubin 0.4 MG/DL (0.2-1.0) Aspartate Amino Transf (AST/SGOT) 23 U/L (15-37) Alanine Aminotransferase (ALT/SGPT) 25 U/L (12-78) Alkaline Phosphatase 76 U/L (46-116) C-Reactive Protein, Quantitative 4.2 mg/dL (0.00-0.90) H Total Protein 7.5 G/DL (6.4-8.2) Albumin 2.7 G/DL (3.4-5.0) L Globulin 4.8 g/dL Albumin/Globulin Ratio 0.6 (1.0-2.7) L Intake and Output 05/03/20 05/04/20 19:00 07:00 Intake Total 120 ml Output Total 1200 ml 2000 ml Balance -1080 ml -2000 ml Intake Oral 120 ml Output Urine Total 1200 ml 2000 ml # Voids 3 Objective General: No acute distress, awake and alert HEENT: NCAT, sclera anicteric, PERRL, EOMI. Neck: Supple, no significant jugular venous distention, Lungs: fair inspiratory effort, decreased air at the bases, no Wheeze or Rales. Heart: Regular rate and rhythm, normal S1/S2, no murmurs/ Abdomen: soft, nontender, nondistended. Normoactive bowel sounds, morbid obesity. / Rectal: Refused and deferred. Extremities: No Cyanosis or clubbing, decreased edema bilateral lower extremities. Neuro: A&O x 3, Able to move all extremities Skin: warm, no rashes or lesions Psych: Normal mood and affect Assessment/Plan Assessment/Plan 1. Acute hypoxemic respiratory failure. 2. COVID-19 pneumonia. 3. Acute renal failure on chronic renal insufficiency. 4. E. Coli Sepsis / Bacteremia. 5. Acute E. Coli urinary tract infection. 6. Morbid obesity. 7. Chronic atrial fibrillation with rapid ventricular rate. 8. Diabetes type 2. 9. Coronary artery disease with prior history of myocardial infarction. 10. Non-ST elevation myocardial infarction, most likely secondary to demand ischemia. 11. Anemia of chronic kidney disease. 12. History of DVT of lower extremity. 13. Chronic Congestive heart failure with reduced ejection fraction. 14. Hypertension. 15. Chronic lymphedema of lower extremity. PLAN: transfer to Med / Surg. Antibiotic: Rocephin IV, Decadron IV. Dr. Keiry Amezquita. from Infectious Disease. Dr. Brownlee from Pulmonary and Critical Care Dr. Pantera Wallace from Nephrology. Code status: Full Code. DVT prophylaxis: Coumadin follow-up with cultures and laboratory in the morning. CODE STATUS: Full code. Aleksandr Vega MD May 04, 2020 15:53
[2020-05-04 16:00] VITALS: BP 142/91
[2020-05-04 20:00] VITALS: BP 152/83
[2020-05-04] MEDS: cefTRIAXone 2 GM in D5W 55 ML IVPB SCH (21:03)
[2020-05-04] MEDS: Miralax 17gm pkt ORAL SCH (21:04)
--- NOTE | 2020-05-04 21:45 | Cardiology Progress Note ---
Assessment/Plan Assessment/Plan 1. Acute COVID-19 infection. 2. Gram-negative andreina bacteremia. 3. Gram-negative urinary tract infection. 4. Permanent atrial fibrillation. 5. Coagulopathy secondary to Coumadin and antibiotic interaction. 6. Renal insufficiency. 7. Diabetes mellitus. 8. PVCs versus aberrant conduction. watch sat now good on ra trop likey abn due to renal insuf echo was done 10/2019 ef was ok abx, anticaog attime tachy and t time tania likely sick sinus d/w rn will hold off on repeating echo give acute covid infection and to avoid transmission to staff (3 other tech out with acute covid infection as well ) Subjective Subjective covid 19 acute infection was seen by other md notes reviewed Objective Last 24 Hour Vital Signs Date Time Temp Pulse Resp B/P (MAP) Pulse Ox O2 Delivery O2 Flow Rate FiO2 05/04/20 16:00 75 05/04/20 16:00 97.7 70 19 142/91 (108) 98 05/04/20 12:00 98.2 68 19 122/86 (98) 98 05/04/20 12:00 61 05/04/20 11:09 45 150/82 05/04/20 11:09 150/82 05/04/20 09:00 Room Air 05/04/20 08:00 98.1 70 20 144/90 (108) 97 05/04/20 08:00 45 05/04/20 04:00 98.6 64 20 150/82 (104) 98 05/04/20 04:00 50 05/04/20 00:00 98.3 63 18 148/83 (104) 95 05/04/20 00:00 57 Intake and Output 05/03/20 05/04/20 19:00 07:00 Intake Total 120 ml Output Total 1200 ml 2000 ml Balance -1080 ml -2000 ml Intake Oral 120 ml Output Urine Total 1200 ml 2000 ml # Voids 3 Laboratory Tests Test 05/04/20 08:25 05/04/20 11:50 05/04/20 17:12 05/04/20 20:26 White Blood Count 14.0 K/UL (4.8-10.8) H Red Blood Count 3.98 M/UL (4.20-5.40) L Hemoglobin 10.7 G/DL (12.0-16.0) L Hematocrit 33.1 % (37.0-47.0) L Mean Corpuscular Volume 83 FL (80-99) Mean Corpuscular Hemoglobin 27.0 PG (27.0-31.0) Mean Corpuscular Hemoglobin Concent 32.4 G/DL (32.0-36.0) Red Cell Distribution Width 16.8 % (11.6-14.8) H Platelet Count 345 K/UL (150-450) Mean Platelet Volume 10.8 FL (6.5-10.1) H Neutrophils (%) (Auto) % (45.0-75.0) Lymphocytes (%) (Auto) % (20.0-45.0) Monocytes (%) (Auto) % (1.0-10.0) Eosinophils (%) (Auto) % (0.0-3.0) Basophils (%) (Auto) % (0.0-2.0) Differential Total Cells Counted 100 Neutrophils % (Manual) 86 % (45-75) H Lymphocytes % (Manual) 10 % (20-45) L Monocytes % (Manual) 4 % (1-10) Eosinophils % (Manual) 0 % (0-3) Basophils % (Manual) 0 % (0-2) Band Neutrophils 0 % (0-8) Platelet Estimate Adequate Platelet Morphology Normal Anisocytosis 1+ Erythrocyte Sedimentation Rate 78 MM/HR (0-30) H Prothrombin Time 31.4 SEC (9.30-11.50) H Prothromb Time International Ratio 3.1 (0.9-1.1) H Sodium Level 136 MMOL/L (136-145) Potassium Level 4.5 MMOL/L (3.5-5.1) Chloride Level 104 MMOL/L (98-107) Carbon Dioxide Level 23 MMOL/L (21-32) Anion Gap 9 mmol/L (5-15) Blood Urea Nitrogen 71 mg/dL (7-18) H Creatinine 2.4 MG/DL (0.55-1.30) H Estimat Glomerular Filtration Rate 23.9 mL/min (>60) Glucose Level 316 MG/DL (74-106) H Calcium Level 9.3 MG/DL (8.5-10.1) Phosphorus Level 3.3 MG/DL (2.5-4.9) Magnesium Level 2.0 MG/DL (1.8-2.4) Total Bilirubin 0.4 MG/DL (0.2-1.0) Aspartate Amino Transf (AST/SGOT) 23 U/L (15-37) Alanine Aminotransferase (ALT/SGPT) 25 U/L (12-78) Alkaline Phosphatase 76 U/L (46-116) C-Reactive Protein, Quantitative 4.2 mg/dL (0.00-0.90) H Total Protein 7.5 G/DL (6.4-8.2) Albumin 2.7 G/DL (3.4-5.0) L Globulin 4.8 g/dL Albumin/Globulin Ratio 0.6 (1.0-2.7) L POC Whole Blood Glucose Pending 284 MG/DL (74-106) H Pending Objective per id Gen: NAD HEENT: NCAT Pulm: BL chest rise Abd: Non-distended Ext: No c/c/e Skin: No visible rashes Neuro: Awake Arun Barker MD May 04, 2020 21:45
[2020-05-05] VITALS: BP 149/77
[2020-05-05] MEDS: Metoprolol Tartrate 2.5 MG in D5W 55 ML IVPB PRN ×2 (00:18→13:11)
[2020-05-05] MEDS: NovoLOG Insulin Flexpen SUBQ SCH ×4 (06:21→20:51)
[2020-05-05 08:00] VITALS: BP 122/66
[2020-05-05] MEDS ORDERED: LORazepam Inj 2mg/ml 1ml IV PRN (08:30)
--- NOTE | 2020-05-05 08:54 | Infectious Diseases Prog Note ---
Assessment/Plan 74yo F with: Sepsis E.coli bacteremia 2/2 UTI COVID pna Acute hypoxia 2/2 COVID pna Leukocytosis to 24, improving 04/29 COVID rapid + BCx +E.coli S-CTX UA+, UCx +E.coli S-CTX CXR: No acute process 05/05 BCx, UA/Ucx, CXR ordered LG on CKD, Cr in 3s, increasing >> improved slightly Afib DM Obesity Plan: Cont CTX 2g IV daily #5 for E.coli bacteremia, tentative 10d course to be 04/29 - 05/09 Stop dexamethasone #6/10 given pt remains on RA Given ?rigoring on exam today, eval for infection BCx UA/UCx CXR Trend WBC, now off steroids 05/05 SP dex #6 given on RA 05/01 SP laisha #2 Not candidate for RDV given CrCl No convalescent plasma available at this institution, and not shown to improve mortality Monitor CBC/CMP Monitor temp curve, hemodynamics Monitor resp status D/w RN Thank you for this consult. [facility] will continue to follow. Subjective Allergies: Coded Allergies: CODEINE (Verified Allergy, Unknown, 10/10/19) AF On RA WBC 14 yesterday, no new labs today On exam, shivering, unable to really talk, can't explain what is going on Objective Last 24 Hour Vital Signs Date Time Temp Pulse Resp B/P (MAP) Pulse Ox O2 Delivery O2 Flow Rate FiO2 05/05/20 04:00 94 05/05/20 00:18 137 149/77 05/05/20 00:00 98.2 106 20 149/77 (101) 100 05/05/20 00:00 115 05/04/20 21:00 Room Air 05/04/20 20:00 91 05/04/20 20:00 97.9 99 20 152/83 (106) 98 05/04/20 16:00 75 05/04/20 16:00 97.7 70 19 142/91 (108) 98 05/04/20 12:00 98.2 68 19 122/86 (98) 98 05/04/20 12:00 61 05/04/20 11:09 45 150/82 05/04/20 11:09 150/82 05/04/20 09:00 Room Air Height (Feet): 5 Height (Inches): 6.00 Weight (Pounds): 350 Gen: Shivering, in pain HEENT: NCAT Pulm: BL chest rise Abd: Non-distended Ext: No c/c/e Skin: No visible rashes Neuro: Awake Laboratory Tests Test 05/04/20 11:50 05/04/20 17:12 05/04/20 20:26 05/05/20 06:02 POC Whole Blood Glucose Pending 284 MG/DL (74-106) H Pending 143 MG/DL (74-106) H Current Medications Medications (Trade) Dose Ordered Sig/Adria Route PRN Reason Start Time Stop Time Status Last Admin Dose Admin Acetaminophen (Tylenol) 650 mg Q4H PRN ORAL Temp >100.5 04/29/20 14:00 05/29/20 13:59 04/30/20 09:55 Albuterol/ Ipratropium (Combivent Respimat) 1 puff Q4H PRN INH Shortness of Breath 04/29/20 14:00 05/29/20 13:59 Amlodipine Besylate (Norvasc) 5 mg BID ORAL 05/04/20 18:00 06/02/20 08:59 Ascorbic Acid (Vitamin C) 500 mg DAILY ORAL 05/01/20 09:00 05/31/20 08:59 05/04/20 11:09 Aspirin (ASA) 81 mg DAILY ORAL 05/01/20 09:00 06/15/20 08:59 05/04/20 11:09 Ceftriaxone Sodium 2 gm/ Dextrose 55 ml @ 110 mls/hr Q24H IVPB 05/01/20 21:00 05/09/20 23:59 05/04/20 21:03 Dexamethasone Sodium Phosphate (Decadron 10mg/ ml Inj) 6 mg DAILY IV 04/30/20 09:00 05/08/20 09:01 05/04/20 12:37 Dextrose (Dextrose 50%) 25 ml Q30M PRN IV Hypoglycemia 05/01/20 15:30 07/30/20 15:29 Dextrose (Dextrose 50%) 50 ml Q30M PRN IV Hypoglycemia 05/01/20 15:30 07/30/20 15:29 Docusate Sodium (Colace) 100 mg THREE TIMES A DAY ORAL 05/01/20 18:00 05/31/20 17:59 05/04/20 11:12 Insulin Aspart (NovoLOG) BEFORE MEALS AND HS SUBQ 05/01/20 16:30 07/30/20 16:29 05/05/20 06:21 Insulin Detemir (Levemir) 20 units Q12HR SUBQ 05/04/20 21:00 07/31/20 13:29 05/04/20 22:09 Isosorbide Mononitrate (Imdur) 30 mg DAILY ORAL 05/01/20 09:00 05/31/20 08:59 05/04/20 11:09 Lorazepam (Ativan 2mg/ml 1ml) 2 mg Q2H PRN IV For Anxiety 05/05/20 08:30 05/12/20 08:29 Metoprolol Tartrate 2.5 mg/ Dextrose 57.5 ml @ 115 mls/hr Q4H PRN IVPB HR >118 05/04/20 21:00 06/03/20 20:59 05/05/20 00:18 Nateglinide (Starlix) 120 mg TIAC ORAL 05/01/20 16:30 05/31/20 16:29 05/05/20 06:20 Nitroglycerin (Ntg) 0.4 mg Q5MIN X 3 DOSES PRN SL CHEST PAIN 04/30/20 22:45 05/30/20 22:44 Ondansetron HCl (Zofran) 4 mg Q6H PRN IVP Nausea & Vomiting 04/29/20 14:00 05/29/20 13:59 Pantoprazole (Protonix) 40 mg EVERY 12 HOURS ORAL 05/01/20 21:00 05/31/20 20:59 05/04/20 11:10 Polyethylene Glycol (Miralax) 17 gm BEDTIME ORAL 05/03/20 21:00 06/02/20 20:59 05/04/20 21:04 Polyethylene Glycol (Miralax) 17 gm DAILYPRN PRN ORAL Constipation 04/29/20 14:00 05/29/20 13:59 Tramadol HCl (Ultram) 50 mg Q6H PRN ORAL For Pain 04/30/20 22:45 05/07/20 22:44 Warfarin Sodium (Coumadin per pharmacy) 1 ea DAILY PRN MISC Per rx protocol 04/30/20 22:45 05/30/20 22:44 Keiry Amezquita M.D. May 05, 2020 08:54
[2020-05-05] MEDS: Docusate 100mg cap ORAL SCH ×3 (09:00→17:52)
[2020-05-05] MEDS: Levemir Flexpen SUBQ SCH ×2 (09:00→20:53)
[2020-05-05] MEDS: Aspirin Baby 81mg ORAL SCH (09:41)
[2020-05-05] MEDS: Ascorbic Acid 500mg tab ORAL SCH (09:42)
[2020-05-05] MEDS: Imdur 30mg tab ORAL SCH (09:42)
--- NOTE | 2020-05-05 10:25 | Nephrology Progress Note ---
Assessment/Plan Problem List: (1) Renal failure (ARF), acute on chronic (2) Acute respiratory failure (3) Atrial fibrillation, rapid (4) Morbid obesity (5) Diabetes mellitus (6) NSTEMI (non-ST elevated myocardial infarction) Assessment 74-year-old female presents with acute respiratory failure she is morbidly obese Acute renal failure Underlying chronic kidney disease Chronic atrial fibrillation Diabetes mellitus/nephropathy History of DVT Sepsis Non-STEMI [place] Morbid obesity Anemia Plan May 05: No labs drawn today. Will check renal parameters and chemistries tomorrow. Continue per consultants May 04: Labs reviewed. Serum creatinine appears to be baseline. Levemir dose is increased. Continue to monitor renal parameters and electrolytes. Continue per consultants. May 03: Labs reviewed. Renal parameters improving. Blood sugar better controlled. Will increase Levemir dose. Vitamin D level pending. Continue per consultants. May 02: Serum creatinine lowering. Levemir insulin added for high blood sugar. Norvasc added for better blood pressure control. Continue per consultants. May 01: Serum creatinine 3. INR elevated. Hemoglobin lower. Continue normal saline 75 cc an hour. Starting Starlix for blood sugar control. Kidney ultrasound and 2D echocardiogram results noted. Per orders. Potassium supplement given. Continue to monitor renal parameters and electrolytes. April 30: We will start on renal diet medium carbs. Increase IV fluid to 100 cc an hour. 2D echocardiogram and kidney ultrasound pending. Continue to monitor renal parameters. Avoid nephrotoxic's. Keep the blood pressure and blood sugar in check. Previously: Anne catheter Urine studies Monitor electrolytes Kidney ultrasound Avoid nephrotoxic's 2D echocardiogram Albumin bolus Per orders Subjective ROS Limited/Unobtainable: No Constitutional: Reports: malaise Objective Objective Last 24 Hour Vital Signs Date Time Temp Pulse Resp B/P (MAP) Pulse Ox O2 Delivery O2 Flow Rate FiO2 05/05/20 09:42 83 122/66 05/05/20 09:42 122/66 05/05/20 09:00 Room Air 05/05/20 08:00 83 05/05/20 08:00 98.2 76 20 122/66 (84) 100 05/05/20 04:00 94 05/05/20 00:18 137 149/77 05/05/20 00:00 98.2 106 20 149/77 (101) 100 05/05/20 00:00 115 05/04/20 21:00 Room Air 05/04/20 20:00 91 05/04/20 20:00 97.9 99 20 152/83 (106) 98 05/04/20 16:00 75 05/04/20 16:00 97.7 70 19 142/91 (108) 98 05/04/20 12:00 98.2 68 19 122/86 (98) 98 05/04/20 12:00 61 05/04/20 11:09 45 150/82 05/04/20 11:09 150/82 Intake and Output 05/04/20 05/05/20 19:00 07:00 Intake Total 1000 ml Output Total 1500 ml 2000 ml Balance -1500 ml -1000 ml Intake Oral 1000 ml Output Urine Total 1500 ml 2000 ml # Voids 2 Laboratory Tests 05/04/20 11:50: POC Whole Blood Glucose [Pending] 05/04/20 17:12: POC Whole Blood Glucose 284H 05/04/20 20:26: POC Whole Blood Glucose [Pending] 05/05/20 06:02: POC Whole Blood Glucose 143H Height (Feet): 5 Height (Inches): 6.00 Weight (Pounds): 350 General Appearance: no apparent distress, other - Febrile Cardiovascular: tachycardia, other - Variable rate Respiratory/Chest: decreased breath sounds Abdomen: distended Pantera Wallace MD May 05, 2020 10:25
--- NOTE | 2020-05-05 11:01 | Pulmonology Progress Note ---
Subjective ROS Limited/Unobtainable: No Interval Events: doing better Allergies: Coded Allergies: CODEINE (Verified Allergy, Unknown, 10/10/19) Objective Last 24 Hour Vital Signs Date Time Temp Pulse Resp B/P (MAP) Pulse Ox O2 Delivery O2 Flow Rate FiO2 05/05/20 09:42 83 122/66 05/05/20 09:42 122/66 05/05/20 09:00 Room Air 05/05/20 08:00 83 05/05/20 08:00 97.7 76 20 122/66 (84) 97 05/05/20 04:00 94 05/05/20 00:18 137 149/77 05/05/20 00:00 98.2 106 20 149/77 (101) 100 05/05/20 00:00 115 05/04/20 21:00 Room Air 05/04/20 20:00 91 05/04/20 20:00 97.9 99 20 152/83 (106) 98 05/04/20 16:00 75 05/04/20 16:00 97.7 70 19 142/91 (108) 98 05/04/20 12:00 98.2 68 19 122/86 (98) 98 05/04/20 12:00 61 05/04/20 11:09 45 150/82 05/04/20 11:09 150/82 Intake and Output 05/04/20 05/05/20 19:00 07:00 Intake Total 1000 ml Output Total 1500 ml 2000 ml Balance -1500 ml -1000 ml Intake Oral 1000 ml Output Urine Total 1500 ml 2000 ml # Voids 2 General Appearance: WD/WN HEENT: normocephalic, atraumatic Respiratory: chest wall non-tender, rhonchi - left, rhonchi - right Cardiovascular: normal peripheral pulses, normal rate, regular rhythm Abdomen: normal bowel sounds, soft, non tender, no organomegaly Genitourinary: normal external genitalia Extremities: no cyanosis Neurologic: pump 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 grossly normal Laboratory Tests 05/04/20 11:50: POC Whole Blood Glucose [Pending] 05/04/20 17:12: POC Whole Blood Glucose 284H 05/04/20 20:26: POC Whole Blood Glucose [Pending] 05/05/20 06:02: POC Whole Blood Glucose 143H 05/05/20 09:33: Prothrombin Time [Pending], Prothromb Time International Ratio [Pending] Current Medications Medications (Trade) Dose Ordered Sig/Adria Route PRN Reason Start Time Stop Time Status Last Admin Dose Admin Acetaminophen (Tylenol) 650 mg Q4H PRN ORAL Temp >100.5 04/29/20 14:00 05/29/20 13:59 04/30/20 09:55 Albuterol/ Ipratropium (Combivent Respimat) 1 puff Q4H PRN INH Shortness of Breath 04/29/20 14:00 05/29/20 13:59 Amlodipine Besylate (Norvasc) 5 mg BID ORAL 05/04/20 18:00 06/02/20 08:59 05/05/20 09:42 Ascorbic Acid (Vitamin C) 500 mg DAILY ORAL 05/01/20 09:00 05/31/20 08:59 05/05/20 09:42 Aspirin (ASA) 81 mg DAILY ORAL 05/01/20 09:00 06/15/20 08:59 05/05/20 09:41 Ceftriaxone Sodium 2 gm/ Dextrose 55 ml @ 110 mls/hr Q24H IVPB 05/01/20 21:00 05/09/20 23:59 05/04/20 21:03 Dextrose (Dextrose 50%) 25 ml Q30M PRN IV Hypoglycemia 05/01/20 15:30 07/30/20 15:29 Dextrose (Dextrose 50%) 50 ml Q30M PRN IV Hypoglycemia 05/01/20 15:30 07/30/20 15:29 Docusate Sodium (Colace) 100 mg THREE TIMES A DAY ORAL 05/01/20 18:00 05/31/20 17:59 05/04/20 11:12 Insulin Aspart (NovoLOG) BEFORE MEALS AND HS SUBQ 05/01/20 16:30 07/30/20 16:29 05/05/20 06:21 Insulin Detemir (Levemir) 20 units Q12HR SUBQ 05/04/20 21:00 07/31/20 13:29 05/04/20 22:09 Isosorbide Mononitrate (Imdur) 30 mg DAILY ORAL 05/01/20 09:00 05/31/20 08:59 05/05/20 09:42 Lorazepam (Ativan 2mg/ml 1ml) 2 mg Q2H PRN IV For Anxiety 05/05/20 08:30 05/12/20 08:29 Metoprolol Tartrate 2.5 mg/ Dextrose 57.5 ml @ 115 mls/hr Q4H PRN IVPB HR >118 05/04/20 21:00 06/03/20 20:59 05/05/20 00:18 Nateglinide (Starlix) 120 mg TIAC ORAL 05/01/20 16:30 05/31/20 16:29 05/05/20 06:20 Nitroglycerin (Ntg) 0.4 mg Q5MIN X 3 DOSES PRN SL CHEST PAIN 04/30/20 22:45 05/30/20 22:44 Ondansetron HCl (Zofran) 4 mg Q6H PRN IVP Nausea & Vomiting 04/29/20 14:00 05/29/20 13:59 Pantoprazole (Protonix) 40 mg EVERY 12 HOURS ORAL 05/01/20 21:00 05/31/20 20:59 05/05/20 09:42 Polyethylene Glycol (Miralax) 17 gm BEDTIME ORAL 05/03/20 21:00 06/02/20 20:59 05/04/20 21:04 Polyethylene Glycol (Miralax) 17 gm DAILYPRN PRN ORAL Constipation 04/29/20 14:00 05/29/20 13:59 Tramadol HCl (Ultram) 50 mg Q6H PRN ORAL For Pain 04/30/20 22:45 05/07/20 22:44 Warfarin Sodium (Coumadin per pharmacy) 1 ea DAILY PRN MISC Per rx protocol 04/30/20 22:45 05/30/20 22:44 Assessment/Plan Problems: (1) Bacteremia due to Gram-negative bacteria (2) 2019 novel coronavirus disease (COVID-19) (3) Sepsis (4) Atrial fibrillation, rapid (5) Diabetes mellitus (6) History of DVT (deep vein thrombosis) (7) Morbid obesity Assessment/Plan Wbc down to 14 cxr 05/04: Cardiomegaly. No acute process afebrile, iv abx, as by ID titrate fio2 to sat of 92% respiratory treatment keep in monitored bed sliding scale dvt prophylaxis Bandar Brownlee MD May 05, 2020 11:01
[2020-05-05 11:17] LABS: INR 4.7 (0.9-1.1)
[2020-05-05 12:00] VITALS: BP 145/108
[2020-05-05 12:12] LABS: APPEARANCE,URINE CLOUDY; BILIRUBIN, URINE NEGATIVE (NEGATIVE); COLOR,URINE PALE YELLOW; GLUCOSE, URINE (UA) NEGATIVE (NEGATIVE); KETONES,URINE NEGATIVE (NEGATIVE); LEUKOCYTE ESTERASE ,URINE 3+ (NEGATIVE); NITRITE,URINE NEGATIVE (NEGATIVE); PH,URINE 5 (4.5-8.0); PROTEIN,URINE 2+ (NEGATIVE); UROBILINOGEN,URINE NORMAL MG/DL (0.0-1.0)
--- NOTE | 2020-05-05 14:21 | Diagnostic Imaging Report ---
Indication: Shortness of breath Technique: XRAY Chest 1v Comparison: 05/04/2020 Findings: Stable cardiomegaly. There is worsening aeration with increased interstitial/rash or congestion. No dense consolidation. No significant pleural effusion. No pneumothorax. Osseous structures. No acute abnormal Impression: Worsening aeration suggesting CHF/interstitial edema. Superimposed pneumonia needs to be excluded clinically.
[2020-05-05 16:00] VITALS: BP 116/62
--- NOTE | 2020-05-05 16:04 | Internal Med Progress Note ---
Subjective Date of Service: May 05, 2020 Physician Name PattieJohny Attending Physician Aleksandr Vega MD Current Medications Medications (Trade) Dose Ordered Sig/Adria Route PRN Reason Start Time Stop Time Status Last Admin Dose Admin Acetaminophen (Tylenol) 650 mg Q4H PRN ORAL Temp >100.5 04/29/20 14:00 05/29/20 13:59 05/05/20 11:43 Albuterol/ Ipratropium (Combivent Respimat) 1 puff Q4H PRN INH Shortness of Breath 04/29/20 14:00 05/29/20 13:59 Amlodipine Besylate (Norvasc) 5 mg BID ORAL 05/04/20 18:00 06/02/20 08:59 05/05/20 09:42 Ascorbic Acid (Vitamin C) 500 mg DAILY ORAL 05/01/20 09:00 05/31/20 08:59 05/05/20 09:42 Aspirin (ASA) 81 mg DAILY ORAL 05/01/20 09:00 06/15/20 08:59 05/05/20 09:41 Ceftriaxone Sodium 2 gm/ Dextrose 55 ml @ 110 mls/hr Q24H IVPB 05/01/20 21:00 05/09/20 23:59 05/04/20 21:03 Dextrose (Dextrose 50%) 25 ml Q30M PRN IV Hypoglycemia 05/01/20 15:30 07/30/20 15:29 Dextrose (Dextrose 50%) 50 ml Q30M PRN IV Hypoglycemia 05/01/20 15:30 07/30/20 15:29 Docusate Sodium (Colace) 100 mg THREE TIMES A DAY ORAL 05/01/20 18:00 05/31/20 17:59 05/04/20 11:12 Insulin Aspart (NovoLOG) BEFORE MEALS AND HS SUBQ 05/01/20 16:30 07/30/20 16:29 05/05/20 13:15 Insulin Detemir (Levemir) 20 units Q12HR SUBQ 05/04/20 21:00 07/31/20 13:29 05/04/20 22:09 Isosorbide Mononitrate (Imdur) 30 mg DAILY ORAL 05/01/20 09:00 05/31/20 08:59 05/05/20 09:42 Lorazepam (Ativan 2mg/ml 1ml) 2 mg Q2H PRN IV For Anxiety 05/05/20 08:30 05/12/20 08:29 Metoprolol Tartrate 2.5 mg/ Dextrose 57.5 ml @ 115 mls/hr Q4H PRN IVPB HR >118 05/04/20 21:00 06/03/20 20:59 05/05/20 13:11 Nateglinide (Starlix) 120 mg TIAC ORAL 05/01/20 16:30 05/31/20 16:29 05/05/20 12:07 Nitroglycerin (Ntg) 0.4 mg Q5MIN X 3 DOSES PRN SL CHEST PAIN 04/30/20 22:45 05/30/20 22:44 Ondansetron HCl (Zofran) 4 mg Q6H PRN IVP Nausea & Vomiting 04/29/20 14:00 05/29/20 13:59 Pantoprazole (Protonix) 40 mg EVERY 12 HOURS ORAL 05/01/20 21:00 05/31/20 20:59 05/05/20 09:42 Polyethylene Glycol (Miralax) 17 gm BEDTIME ORAL 05/03/20 21:00 06/02/20 20:59 05/04/20 21:04 Polyethylene Glycol (Miralax) 17 gm DAILYPRN PRN ORAL Constipation 04/29/20 14:00 05/29/20 13:59 Tramadol HCl (Ultram) 50 mg Q6H PRN ORAL For Pain 04/30/20 22:45 05/07/20 22:44 Warfarin Sodium (Coumadin per pharmacy) 1 ea DAILY PRN MISC Per rx protocol 04/30/20 22:45 05/30/20 22:44 Allergies: Coded Allergies: CODEINE (Verified Allergy, Unknown, 10/10/19) ROS Limited/Unobtainable: No Constitutional: Reports: no symptoms HEENT: Reports: no symptoms Cardiovascular: Reports: no symptoms Respiratory: Reports: shortness of breath Gastrointestinal/Abdominal: Reports: no symptoms Genitourinary: Reports: no symptoms Neurologic/Psychiatric: Reports: no symptoms Subjective 74 YO F admitted with shortness of breath. Now COVID 19, sepsis, UTI and pneumonia. Cover for Int Med-Tele Objective Last Vital Signs Date Time Temp Pulse Resp B/P (MAP) Pulse Ox O2 Delivery O2 Flow Rate FiO2 12/29/20 13:11 156 145/108 05/05/20 12:13 100.1 05/05/20 09:00 Room Air 05/05/20 08:00 20 97 05/02/20 21:00 2.0 04/29/20 15:28 30 Laboratory Tests Test 05/04/20 17:12 05/04/20 20:26 05/05/20 06:02 05/05/20 09:33 POC Whole Blood Glucose 284 MG/DL (74-106) H Pending 143 MG/DL (74-106) H Prothrombin Time 46.2 SEC (9.30-11.50) H Prothromb Time International Ratio 4.7 (0.9-1.1) H Test 05/05/20 11:50 05/05/20 12:04 Urine Color Pale yellow Urine Appearance Cloudy Urine pH 5 (4.5-8.0) Urine Specific [place] 1.010 (1.005-1.035) Urine Protein 2+ (NEGATIVE) H Urine Glucose (UA) Negative (NEGATIVE) Urine Ketones Negative (NEGATIVE) Urine Blood 4+ (NEGATIVE) H Urine Nitrite Negative (NEGATIVE) Urine Bilirubin Negative (NEGATIVE) Urine Urobilinogen Normal MG/DL (0.0-1.0) Urine Leukocyte Esterase 3+ (NEGATIVE) H Urine RBC 5-10 /HPF (0 - 2) H Urine WBC Tntc /HPF (0 - 2) H Urine Squamous Epithelial Cells Few /LPF (NONE/OCC) Urine Bacteria Few /HPF (NONE) POC Whole Blood Glucose 160 MG/DL (74-106) H Intake and Output 05/04/20 05/05/20 19:00 07:00 Intake Total 1000 ml Output Total 1500 ml 2000 ml Balance -1500 ml -1000 ml Intake Oral 1000 ml Output Urine Total 1500 ml 2000 ml # Voids 2 Objective Objective General: No acute distress, awake and alert HEENT: NCAT, sclera anicteric, PERRL, EOMI. Neck: Supple, no significant jugular venous distention, Lungs: fair inspiratory effort, decreased air at the bases, no Wheeze or Rales. Heart: Regular rate and rhythm, normal S1/S2, no murmurs/ Abdomen: soft, nontender, nondistended. Normoactive bowel sounds, morbid obesity. / Rectal: Refused and deferred. Extremities: No Cyanosis or clubbing, decreased edema bilateral lower ex tremities. Neuro: A&O x 3, Able to move all extremities Skin: warm, no rashes or lesions Psych: Normal mood and affect Assessment/Plan Assessment/Plan Assessment/Plan Assessment/Plan 1. Acute hypoxemic respiratory failure. 2. COVID-19 pneumonia. 3. Acute renal failure on chronic renal insufficiency. 4. E. Coli Sepsis / Bacteremia. 5. Acute E. Coli urinary tract infection. 6. Morbid obesity. 7. Chronic atrial fibrillation with rapid ventricular rate. 8. Diabetes type 2. 9. Coronary artery disease with prior history of myocardial infarction. 10. Non-ST elevation myocardial infarction, most likely secondary to demand ischemia. 11. Anemia of chronic kidney disease. 12. History of DVT of lower extremity. 13. Chronic Congestive heart failure with reduced ejection fraction. 14. Hypertension. 15. Chronic lymphedema of lower extremity. PLAN: Telemetry Antibiotic: Rocephin IV, Decadron IV. Dr. Keiry Amezquita=Infectious Disease. Dr. Brownlee = Pulmonary and Critical Care Dr. Pantera Wallace = Nephrology. Code status: Full Code. DVT prophylaxis: Coumadin follow-up with cultures and laboratory in the morning. CODE STATUS: Full code. Johny Blankenship MD May 05, 2020 16:04
--- NOTE | 2020-05-05 17:33 | Cardiology Progress Note ---
Assessment/Plan Assessment/Plan 1. Acute COVID-19 infection. 2. Gram-negative andreina bacteremia. 3. Gram-negative urinary tract infection. 4. Permanent atrial fibrillation. 5. Coagulopathy secondary to Coumadin and antibiotic interaction. 6. Renal insufficiency. 7. Diabetes mellitus. 8. PVCs versus aberrant conduction. watch sat now good on ra trop likey abn due to renal insuf echo was done 10/2019 ef was ok abx, anticaog attime tachy and t time tania likely sick sinus d/w rn will hold off on repeating echo give acute covid infection and to avoid transmission to staff (3 other tech out with acute covid infection as well ) Subjective Subjective covid 19 acute infection was seen by other md notes reviewed Objective Last 24 Hour Vital Signs Date Time Temp Pulse Resp B/P (MAP) Pulse Ox O2 Delivery O2 Flow Rate FiO2 05/05/20 16:00 116 05/05/20 13:11 156 145/108 05/05/20 12:13 100.1 05/05/20 12:13 100.1 05/05/20 12:00 155 05/05/20 11:42 100.4 05/05/20 09:42 83 122/66 05/05/20 09:42 122/66 05/05/20 09:00 Room Air 05/05/20 08:00 83 05/05/20 08:00 97.7 76 20 122/66 (84) 97 05/05/20 04:00 94 05/05/20 00:18 137 149/77 05/05/20 00:00 98.2 106 20 149/77 (101) 100 05/05/20 00:00 115 05/04/20 21:00 Room Air 05/04/20 20:00 91 05/04/20 20:00 97.9 99 20 152/83 (106) 98 Intake and Output 05/04/20 05/05/20 19:00 07:00 Intake Total 1000 ml Output Total 1500 ml 2000 ml Balance -1500 ml -1000 ml Intake Oral 1000 ml Output Urine Total 1500 ml 2000 ml # Voids 2 Laboratory Tests Test 05/04/20 20:26 05/05/20 06:02 05/05/20 09:33 05/05/20 11:50 POC Whole Blood Glucose Pending 143 MG/DL (74-106) H Prothrombin Time 46.2 SEC (9.30-11.50) H Prothromb Time International Ratio 4.7 (0.9-1.1) H Urine Color Pale yellow Urine Appearance Cloudy Urine pH 5 (4.5-8.0) Urine Specific [place] 1.010 (1.005-1.035) Urine Protein 2+ (NEGATIVE) H Urine Glucose (UA) Negative (NEGATIVE) Urine Ketones Negative (NEGATIVE) Urine Blood 4+ (NEGATIVE) H Urine Nitrite Negative (NEGATIVE) Urine Bilirubin Negative (NEGATIVE) Urine Urobilinogen Normal MG/DL (0.0-1.0) Urine Leukocyte Esterase 3+ (NEGATIVE) H Urine RBC 5-10 /HPF (0 - 2) H Urine WBC Tntc /HPF (0 - 2) H Urine Squamous Epithelial Cells Few /LPF (NONE/OCC) Urine Bacteria Few /HPF (NONE) Test 05/05/20 12:04 05/05/20 16:40 POC Whole Blood Glucose 160 MG/DL (74-106) H 102 MG/DL (74-106) Objective per dr al Lungs: fair inspiratory effort, decreased air at the bases, no Wheeze or Rales. Heart: Regular rate and rhythm, normal S1/S2, no murmurs/ Abdomen: soft, nontender, nondistended. Normoactive bowel sounds, morbid obesity. / Rectal: Refused and deferred. Extremities: No Cyanosis or clubbing, decreased edema bilateral lower extremities. Arun Barker MD May 05, 2020 17:33
[2020-05-05 20:00] VITALS: BP 138/71
[2020-05-05] MEDS: cefTRIAXone 2 GM in D5W 55 ML IVPB SCH (20:07)
[2020-05-05] MEDS: Miralax 17gm pkt ORAL SCH (20:07)
[2020-05-06] VITALS: BP 141/80
[2020-05-06] MEDS: NovoLOG Insulin Flexpen SUBQ SCH ×4 (05:42→21:00)
[2020-05-06 08:00] VITALS: BP 158/76
--- NOTE | 2020-05-06 08:43 | Infectious Diseases Prog Note ---
Assessment/Plan 74yo F with: Sepsis E.coli bacteremia 2/2 UTI COVID pna Acute hypoxia 2/2 COVID pna Leukocytosis to 24, improving 04/29 COVID rapid + BCx +E.coli S-CTX UA+, UCx +E.coli S-CTX CXR: No acute process 05/05 BCx p UA+, Ucx p CXR: Worsening aeration suggesting CHF/interstitial edema. Superimposed pne umonia needs to be excluded clinically. LG on CKD, Cr in 3s, increasing >> improved slightly Afib DM Obesity Plan: Cont CTX 2g IV daily #6 for E.coli bacteremia, tentative 10d course to be 04/29 - 05/09 If ongoing diarrhea, collect C.dif F/u 05/05 BCx, UCx Trend WBC now off steroids Trend temp curve 05/05 SP dex #6 given on RA 05/01 SP laisha #2 Not candidate for RDV given CrCl No convalescent plasma available at this institution, and not shown to improve mortality Monitor CBC/CMP Monitor temp curve, hemodynamics Monitor resp status D/w RN Thank you for this consult. [facility] will continue to follow. Subjective Allergies: Coded Allergies: CODEINE (Verified Allergy, Unknown, 10/10/19) Tmax 100.4 Labs pending UA still positive Pt doing much better than yesterday, reports yesterday had lots of diarrhea and stool all over her. Today no more diarrhea, doing better Objective Last 24 Hour Vital Signs Date Time Temp Pulse Resp B/P (MAP) Pulse Ox O2 Delivery O2 Flow Rate FiO2 05/06/20 08:00 96.7 80 21 158/76 (103) 97 05/06/20 02:30 84 05/06/20 01:31 69 05/06/20 00:00 98.1 78 20 141/80 (100) 96 05/05/20 21:00 Room Air 05/05/20 20:00 98.4 87 20 138/71 (93) 95 05/05/20 20:00 88 05/05/20 17:51 116 116/62 05/05/20 16:00 116 05/05/20 16:00 99.7 111 22 116/62 (80) 97 05/05/20 13:11 156 145/108 05/05/20 12:13 100.1 12/29/20 12:13 100.1 05/05/20 12:00 155 05/05/20 12:00 100.4 121 24 145/108 (120) 97 05/05/20 11:42 100.4 05/05/20 09:42 83 122/66 05/05/20 09:42 122/66 05/05/20 09:00 Room Air Height (Feet): 5 Height (Inches): 6.00 Weight (Pounds): 350 Gen: Shivering, in pain HEENT: NCAT Pulm: BL chest rise Abd: Non-distended Ext: No c/c/e Skin: No visible rashes Neuro: Awake Laboratory Tests Test 05/05/20 09:33 05/05/20 11:50 05/05/20 12:04 05/05/20 16:40 Prothrombin Time 46.2 SEC (9.30-11.50) H Prothromb Time International Ratio 4.7 (0.9-1.1) H Urine Color Pale yellow Urine Appearance Cloudy Urine pH 5 (4.5-8.0) Urine Specific [place] 1.010 (1.005-1.035) Urine Protein 2+ (NEGATIVE) H Urine Glucose (UA) Negative (NEGATIVE) Urine Ketones Negative (NEGATIVE) Urine Blood 4+ (NEGATIVE) H Urine Nitrite Negative (NEGATIVE) Urine Bilirubin Negative (NEGATIVE) Urine Urobilinogen Normal MG/DL (0.0-1.0) Urine Leukocyte Esterase 3+ (NEGATIVE) H Urine RBC 5-10 /HPF (0 - 2) H Urine WBC Tntc /HPF (0 - 2) H Urine Squamous Epithelial Cells Few /LPF (NONE/OCC) Urine Bacteria Few /HPF (NONE) POC Whole Blood Glucose 160 MG/DL (74-106) H 102 MG/DL (74-106) Current Medications Medications (Trade) Dose Ordered Sig/Adria Route PRN Reason Start Time Stop Time Status Last Admin Dose Admin Acetaminophen (Tylenol) 650 mg Q4H PRN ORAL Temp >100.5 04/29/20 14:00 05/29/20 13:59 05/05/20 11:43 Albuterol/ Ipratropium (Combivent Respimat) 1 puff Q4H PRN INH Shortness of Breath 04/29/20 14:00 05/29/20 13:59 Amlodipine Besylate (Norvasc) 5 mg BID ORAL 05/04/20 18:00 06/02/20 08:59 05/05/20 17:51 Ascorbic Acid (Vitamin C) 500 mg DAILY ORAL 05/01/20 09:00 05/31/20 08:59 05/05/20 09:42 Aspirin (ASA) 81 mg DAILY ORAL 05/01/20 09:00 06/15/20 08:59 05/05/20 09:41 Ceftriaxone Sodium 2 gm/ Dextrose 55 ml @ 110 mls/hr Q24H IVPB 05/01/20 21:00 05/09/20 23:59 05/05/20 20:07 Dextrose (Dextrose 50%) 25 ml Q30M PRN IV Hypoglycemia 05/01/20 15:30 07/30/20 15:29 Dextrose (Dextrose 50%) 50 ml Q30M PRN IV Hypoglycemia 05/01/20 15:30 07/30/20 15:29 Docusate Sodium (Colace) 100 mg THREE TIMES A DAY ORAL 05/01/20 18:00 05/31/20 17:59 05/04/20 11:12 Insulin Aspart (NovoLOG) BEFORE MEALS AND HS SUBQ 05/01/20 16:30 07/30/20 16:29 05/05/20 20:51 Insulin Detemir (Levemir) 20 units Q12HR SUBQ 05/04/20 21:00 07/31/20 13:29 05/05/20 20:53 Isosorbide Mononitrate (Imdur) 30 mg DAILY ORAL 05/01/20 09:00 05/31/20 08:59 05/05/20 09:42 Lorazepam (Ativan 2mg/ml 1ml) 2 mg Q2H PRN IV For Anxiety 05/05/20 08:30 05/12/20 08:29 Metoprolol Tartrate 2.5 mg/ Dextrose 57.5 ml @ 115 mls/hr Q4H PRN IVPB HR >118 05/04/20 21:00 06/03/20 20:59 05/05/20 13:11 Nateglinide (Starlix) 120 mg TIAC ORAL 05/01/20 16:30 05/31/20 16:29 05/06/20 05:41 Nitroglycerin (Ntg) 0.4 mg Q5MIN X 3 DOSES PRN SL CHEST PAIN 04/30/20 22:45 05/30/20 22:44 Ondansetron HCl (Zofran) 4 mg Q6H PRN IVP Nausea & Vomiting 04/29/20 14:00 05/29/20 13:59 Pantoprazole (Protonix) 40 mg EVERY 12 HOURS ORAL 05/01/20 21:00 05/31/20 20:59 05/05/20 20:07 Polyethylene Glycol (Miralax) 17 gm BEDTIME ORAL 05/03/20 21:00 06/02/20 20:59 05/04/20 21:04 Polyethylene Glycol (Miralax) 17 gm DAILYPRN PRN ORAL Constipation 04/29/20 14:00 05/29/20 13:59 Tramadol HCl (Ultram) 50 mg Q6H PRN ORAL For Pain 04/30/20 22:45 05/07/20 22:44 Warfarin Sodium (Coumadin per pharmacy) 1 ea DAILY PRN MISC Per rx protocol 04/30/20 22:45 05/30/20 22:44 Keiry Amezquita M.D. May 06, 2020 08:43
[2020-05-06] MEDS: Docusate 100mg cap ORAL SCH ×3 (08:52→17:26)
[2020-05-06] MEDS: Aspirin Baby 81mg ORAL SCH (08:52)
[2020-05-06] MEDS: Imdur 30mg tab ORAL SCH (08:52)
[2020-05-06] MEDS: Ascorbic Acid 500mg tab ORAL SCH (08:52)
--- NOTE | 2020-05-06 09:18 | Pulmonology Progress Note ---
Subjective ROS Limited/Unobtainable: No Interval Events: doing better Allergies: Coded Allergies: CODEINE (Verified Allergy, Unknown, 10/10/19) Objective Last 24 Hour Vital Signs Date Time Temp Pulse Resp B/P (MAP) Pulse Ox O2 Delivery O2 Flow Rate FiO2 05/06/20 08:52 80 158/76 05/06/20 08:52 158/76 05/06/20 08:00 96.7 80 21 158/76 (103) 97 05/06/20 02:30 84 05/06/20 01:31 69 05/06/20 00:00 98.1 78 20 141/80 (100) 96 05/05/20 21:00 Room Air 05/05/20 20:00 98.4 87 20 138/71 (93) 95 05/05/20 20:00 88 05/05/20 17:51 116 116/62 05/05/20 16:00 116 05/05/20 16:00 99.7 111 22 116/62 (80) 97 05/05/20 13:11 156 145/108 05/05/20 12:13 100.1 05/05/20 12:13 100.1 05/05/20 12:00 155 05/05/20 12:00 100.4 121 24 145/108 (120) 97 05/05/20 11:42 100.4 05/05/20 09:42 83 122/66 05/05/20 09:42 122/66 Intake and Output 05/05/20 05/06/20 19:00 07:00 Output Total 1500 ml 875 ml Balance -1500 ml -875 ml Output Urine Total 1500 ml 875 ml # Bowel Movements 1 General Appearance: WD/WN HEENT: normocephalic, atraumatic Respiratory: chest wall non-tender, rhonchi - left, rhonchi - right Cardiovascular: normal peripheral pulses, normal rate, regular rhythm Abdomen: normal bowel sounds, soft, non tender, no organomegaly Genitourinary: normal external genitalia Extremities: no cyanosis Neurologic: propagation manager II-XII grossly normal Laboratory Tests 05/05/20 09:33: Prothrombin Time 46.2H, Prothromb Time International Ratio 4.7H 05/05/20 11:50: Urine Color Pale yellow, Urine Appearance Cloudy, Urine pH 5, Urine Specific [place] 1.010, Urine Protein 2+H, Urine Glucose (UA) Negative, Urine Ketones Negative, Urine Blood 4+H, Urine Nitrite Negative, Urine Bilirubin Negative, Urine Urobilinogen Normal, Urine Leukocyte Esterase 3+H, Urine RBC 5-10H, Urine WBC TntcH, Urine Squamous Epithelial Cells Few, Urine Bacteria Few 05/05/20 12:04: POC Whole Blood Glucose 160H 05/05/20 16:40: POC Whole Blood Glucose 102 Current Medications Medications (Trade) Dose Ordered Sig/Adria Route PRN Reason Start Time Stop Time Status Last Admin Dose Admin Acetaminophen (Tylenol) 650 mg Q4H PRN ORAL Temp >100.5 04/29/20 14:00 05/29/20 13:59 05/05/20 11:43 Albuterol/ Ipratropium (Combivent Respimat) 1 puff Q4H PRN INH Shortness of Breath 04/29/20 14:00 05/29/20 13:59 Amlodipine Besylate (Norvasc) 5 mg BID ORAL 05/04/20 18:00 06/02/20 08:59 05/06/20 08:52 Ascorbic Acid (Vitamin C) 500 mg DAILY ORAL 05/01/20 09:00 05/31/20 08:59 05/06/20 08:52 Aspirin (ASA) 81 mg DAILY ORAL 05/01/20 09:00 06/15/20 08:59 05/06/20 08:52 Ceftriaxone Sodium 2 gm/ Dextrose 55 ml @ 110 mls/hr Q24H IVPB 05/01/20 21:00 05/09/20 23:59 05/05/20 20:07 Dextrose (Dextrose 50%) 25 ml Q30M PRN IV Hypoglycemia 05/01/20 15:30 07/30/20 15:29 Dextrose (Dextrose 50%) 50 ml Q30M PRN IV Hypoglycemia 05/01/20 15:30 07/30/20 15:29 Docusate Sodium (Colace) 100 mg THREE TIMES A DAY ORAL 05/01/20 18:00 05/31/20 17:59 05/06/20 08:52 Insulin Aspart (NovoLOG) BEFORE MEALS AND HS SUBQ 05/01/20 16:30 07/30/20 16:29 05/05/20 20:51 Insulin Detemir (Levemir) 20 units Q12HR SUBQ 05/04/20 21:00 07/31/20 13:29 05/05/20 20:53 Isosorbide Mononitrate (Imdur) 30 mg DAILY ORAL 05/01/20 09:00 05/31/20 08:59 05/06/20 08:52 Lorazepam (Ativan 2mg/ml 1ml) 2 mg Q2H PRN IV For Anxiety 05/05/20 08:30 05/12/20 08:29 Metoprolol Tartrate 2.5 mg/ Dextrose 57.5 ml @ 115 mls/hr Q4H PRN IVPB HR >118 05/04/20 21:00 06/03/20 20:59 05/05/20 13:11 Nateglinide (Starlix) 120 mg TIAC ORAL 05/01/20 16:30 05/31/20 16:29 05/06/20 05:41 Nitroglycerin (Ntg) 0.4 mg Q5MIN X 3 DOSES PRN SL CHEST PAIN 04/30/20 22:45 05/30/20 22:44 Ondansetron HCl (Zofran) 4 mg Q6H PRN IVP Nausea & Vomiting 04/29/20 14:00 05/29/20 13:59 Pantoprazole (Protonix) 40 mg EVERY 12 HOURS ORAL 05/01/20 21:00 05/31/20 20:59 05/06/20 08:52 Polyethylene Glycol (Miralax) 17 gm BEDTIME ORAL 05/03/20 21:00 06/02/20 20:59 05/04/20 21:04 Polyethylene Glycol (Miralax) 17 gm DAILYPRN PRN ORAL Constipation 04/29/20 14:00 05/29/20 13:59 Tramadol HCl (Ultram) 50 mg Q6H PRN ORAL For Pain 04/30/20 22:45 05/07/20 22:44 Warfarin Sodium (Coumadin per pharmacy) 1 ea DAILY PRN MISC Per rx protocol 04/30/20 22:45 05/30/20 22:44 Assessment/Plan Problems: (1) Bacteremia due to Gram-negative bacteria (2) 2019 novel coronavirus disease (COVID-19) (3) Sepsis (4) Atrial fibrillation, rapid (5) Diabetes mellitus (6) History of DVT (deep vein thrombosis) (7) Morbid obesity Assessment/Plan low grade fever yesterday Wbc still high cxr 05/04: Cardiomegaly. No acute process afebrile, iv abx, as by ID titrate fio2 to sat of 92% respiratory treatment keep in monitored bed sliding scale dvt prophylaxis Bandar Brownlee MD May 06, 2020 09:18
[2020-05-06] MEDS: Levemir Flexpen SUBQ SCH ×2 (09:31→21:00)
--- NOTE | 2020-05-06 11:47 | Nephrology Progress Note ---
Assessment/Plan Problem List: (1) Renal failure (ARF), acute on chronic (2) Acute respiratory failure (3) Atrial fibrillation, rapid (4) Morbid obesity (5) Diabetes mellitus (6) NSTEMI (non-ST elevated myocardial infarction) Assessment 74-year-old female presents with acute respiratory failure she is morbidly obese Acute renal failure Underlying chronic kidney disease Chronic atrial fibrillation Diabetes mellitus/nephropathy History of DVT Sepsis Non-STEMI TN Morbid obesity Anemia Plan May 06: Today's chemistry panel still pending. Continue to monitor renal parameters. Medication list reviewed. Continue per consultants. May 05: No labs drawn today. Will check renal parameters and chemistries tomorrow. Continue per consultants May 04: Labs reviewed. Serum creatinine appears to be baseline. Levemir dose is increased. Continue to monitor renal parameters and electrolytes. Continue per consultants. May 03: Labs reviewed. Renal parameters improving. Blood sugar better controlled. Will increase Levemir dose. Vitamin D level pending. Continue per consultants. May 02: Serum creatinine lowering. Levemir insulin added for high blood sugar. Norvasc added for better blood pressure control. Continue per consultants. May 01: Serum creatinine 3. INR elevated. Hemoglobin lower. Continue normal saline 75 cc an hour. Starting Starlix for blood sugar control. Kidney ultrasound and 2D echocardiogram results noted. Per orders. Potassium supplement given. Continue to monitor renal parameters and electrolytes. April 30: We will start on renal diet medium carbs. Increase IV fluid to 100 cc an hour. 2D echocardiogram and kidney ultrasound pending. Continue to monitor renal parameters. Avoid nephrotoxic's. Keep the blood pressure and blood sugar in check. Previously: Anne catheter Urine studies Monitor electrolytes Kidney ultrasound Avoid nephrotoxic's 2D echocardiogram Albumin bolus Per orders Subjective ROS Limited/Unobtainable: No Constitutional: Reports: malaise, weakness Objective Objective Last 24 Hour Vital Signs Date Time Temp Pulse Resp B/P (MAP) Pulse Ox O2 Delivery O2 Flow Rate FiO2 05/06/20 09:00 Room Air 05/06/20 08:52 80 158/76 05/06/20 08:52 158/76 05/06/20 08:00 96.7 80 21 158/76 (103) 97 05/06/20 08:00 102 05/06/20 02:30 84 05/06/20 01:31 69 05/06/20 00:00 98.1 78 20 141/80 (100) 96 05/05/20 21:00 Room Air 05/05/20 20:00 98.4 87 20 138/71 (93) 95 05/05/20 20:00 88 05/05/20 17:51 116 116/62 05/05/20 16:00 116 05/05/20 16:00 99.7 111 22 116/62 (80) 97 05/05/20 13:11 156 145/108 05/05/20 12:13 100.1 05/05/20 12:13 100.1 05/05/20 12:00 155 05/05/20 12:00 100.4 121 24 145/108 (120) 97 Intake and Output 05/05/20 05/06/20 19:00 07:00 Output Total 1500 ml 875 ml Balance -1500 ml -875 ml Output Urine Total 1500 ml 875 ml # Bowel Movements 1 Laboratory Tests 05/05/20 11:50: Urine Color Pale yellow, Urine Appearance Cloudy, Urine pH 5, Urine Specific [place] 1.010, Urine Protein 2+H, Urine Glucose (UA) Negative, Urine Ketones Negative, Urine Blood 4+H, Urine Nitrite Negative, Urine Bilirubin Negative, Urine Urobilinogen Normal, Urine Leukocyte Esterase 3+H, Urine RBC 5-10H, Urine WBC TntcH, Urine Squamous Epithelial Cells Few, Urine Bacteria Few 05/05/20 12:04: POC Whole Blood Glucose 160H 05/05/20 16:40: POC Whole Blood Glucose 102 Height (Feet): 5 Height (Inches): 6.00 Weight (Pounds): 350 General Appearance: no apparent distress Cardiovascular: normal rate Respiratory/Chest: decreased breath sounds Abdomen: distended Pantera Wallace MD May 06, 2020 11:47
[2020-05-06 12:00] VITALS: BP 145/67
[2020-05-06 16:00] VITALS: BP 150/67
--- NOTE | 2020-05-06 16:26 | Internal Med Progress Note ---
Subjective Date of Service: May 06, 2020 Physician Name PattieJohny Attending Physician Aleksandr Vega MD Current Medications Medications (Trade) Dose Ordered Sig/Adria Route PRN Reason Start Time Stop Time Status Last Admin Dose Admin Acetaminophen (Tylenol) 650 mg Q4H PRN ORAL Temp >100.5 04/29/20 14:00 05/29/20 13:59 05/05/20 11:43 Albuterol/ Ipratropium (Combivent Respimat) 1 puff Q4H PRN INH Shortness of Breath 04/29/20 14:00 05/29/20 13:59 Amlodipine Besylate (Norvasc) 5 mg BID ORAL 05/04/20 18:00 06/02/20 08:59 05/06/20 08:52 Ascorbic Acid (Vitamin C) 500 mg DAILY ORAL 05/01/20 09:00 05/31/20 08:59 05/06/20 08:52 Aspirin (ASA) 81 mg DAILY ORAL 05/01/20 09:00 06/15/20 08:59 05/06/20 08:52 Ceftriaxone Sodium 2 gm/ Dextrose 55 ml @ 110 mls/hr Q24H IVPB 05/01/20 21:00 05/09/20 23:59 05/05/20 20:07 Dextrose (Dextrose 50%) 25 ml Q30M PRN IV Hypoglycemia 05/01/20 15:30 07/30/20 15:29 Dextrose (Dextrose 50%) 50 ml Q30M PRN IV Hypoglycemia 05/01/20 15:30 07/30/20 15:29 Docusate Sodium (Colace) 100 mg THREE TIMES A DAY ORAL 05/01/20 18:00 05/31/20 17:59 05/06/20 08:52 Insulin Aspart (NovoLOG) BEFORE MEALS AND HS SUBQ 05/01/20 16:30 07/30/20 16:29 05/05/20 20:51 Insulin Detemir (Levemir) 20 units Q12HR SUBQ 05/04/20 21:00 07/31/20 13:29 05/06/20 09:31 Isosorbide Mononitrate (Imdur) 30 mg DAILY ORAL 05/01/20 09:00 05/31/20 08:59 05/06/20 08:52 Lorazepam (Ativan 2mg/ml 1ml) 2 mg Q2H PRN IV For Anxiety 05/05/20 08:30 05/12/20 08:29 Metoprolol Tartrate 2.5 mg/ Dextrose 57.5 ml @ 115 mls/hr Q4H PRN IVPB HR >118 05/04/20 21:00 06/03/20 20:59 05/05/20 13:11 Nateglinide (Starlix) 120 mg TIAC ORAL 05/01/20 16:30 05/31/20 16:29 05/06/20 05:41 Nitroglycerin (Ntg) 0.4 mg Q5MIN X 3 DOSES PRN SL CHEST PAIN 04/30/20 22:45 05/30/20 22:44 Ondansetron HCl (Zofran) 4 mg Q6H PRN IVP Nausea & Vomiting 04/29/20 14:00 05/29/20 13:59 Pantoprazole (Protonix) 40 mg EVERY 12 HOURS ORAL 05/01/20 21:00 05/31/20 20:59 05/06/20 08:52 Polyethylene Glycol (Miralax) 17 gm BEDTIME ORAL 05/03/20 21:00 06/02/20 20:59 05/04/20 21:04 Polyethylene Glycol (Miralax) 17 gm DAILYPRN PRN ORAL Constipation 04/29/20 14:00 05/29/20 13:59 Tramadol HCl (Ultram) 50 mg Q6H PRN ORAL For Pain 04/30/20 22:45 05/07/20 22:44 Warfarin Sodium (Coumadin per pharmacy) 1 ea DAILY PRN MISC Per rx protocol 04/30/20 22:45 05/30/20 22:44 Allergies: Coded Allergies: CODEINE (Verified Allergy, Unknown, 10/10/19) ROS Limited/Unobtainable: Yes Subjective 74 YO F admitted with shortness of breath. Now COVID 19, sepsis, UTI and pneumonia. Cover for Int Med-Tele Objective Last Vital Signs Date Time Temp Pulse Resp B/P (MAP) Pulse Ox O2 Delivery O2 Flow Rate FiO2 05/06/20 12:00 98.1 61 20 145/67 (93) 98 05/06/20 09:00 Room Air 05/02/20 21:00 2.0 12/23/20 15:28 30 Laboratory Tests Test 05/05/20 16:40 05/06/20 15:45 POC Whole Blood Glucose 102 MG/DL (74-106) White Blood Count Pending Red Blood Count Pending Hemoglobin Pending Hematocrit Pending Mean Corpuscular Volume Pending Mean Corpuscular Hemoglobin Pending Mean Corpuscular Hemoglobin Concent Pending Red Cell Distribution Width Pending Platelet Count Pending Mean Platelet Volume Pending Neutrophils (%) (Auto) Pending Lymphocytes (%) (Auto) Pending Monocytes (%) (Auto) Pending Eosinophils (%) (Auto) Pending Basophils (%) (Auto) Pending Prothrombin Time Pending Prothromb Time International Ratio Pending Sodium Level Pending Potassium Level Pending Chloride Level Pending Carbon Dioxide Level Pending Blood Urea Nitrogen Pending Creatinine Pending Estimat Glomerular Filtration Rate Pending Glucose Level Pending Calcium Level Pending Phosphorus Level Pending Magnesium Level Pending Total Bilirubin Pending Aspartate Amino Transf (AST/SGOT) Pending Alanine Aminotransferase (ALT/SGPT) Pending Alkaline Phosphatase Pending C-Reactive Protein, Quantitative Pending Pro-B-Type Natriuretic Peptide Pending Total Protein Pending Albumin Pending Globulin Pending Intake and Output 05/05/20 05/06/20 19:00 07:00 Output Total 1500 ml 875 ml Balance -1500 ml -875 ml Output Urine Total 1500 ml 875 ml # Bowel Movements 1 Objective Objective General: No acute distress, awake and alert HEENT: NCAT, sclera anicteric, PERRL, EOMI. Neck: Supple, no significant jugular venous distention, Lungs: fair inspiratory effort, decreased air at the bases, no Wheeze or Rales. Heart: Regular rate and rhythm, normal S1/S2, no murmurs/ Abdomen: soft, nontender, nondistended. Normoactive bowel sounds, morbid obesit y. / Rectal: Refused and deferred. Extremities: No Cyanosis or clubbing, decreased edema bilateral lower extremities. Neuro: A&O x 3, Able to move all extremities Skin: warm, no rashes or lesions Psych: Normal mood and affect Assessment/Plan Assessment/Plan Assessment/Plan Assessment/Plan 1. Acute hypoxemic respiratory failure. 2. COVID-19 pneumonia. 3. Acute renal failure on chronic renal insufficiency. 4. E. Coli Sepsis / Bacteremia. 5. Acute E. Coli urinary tract infection. 6. Morbid obesity. 7. Chronic atrial fibrillation with rapid ventricular rate. 8. Diabetes type 2. 9. Coronary artery disease with prior history of myocardial infarction. 10. Non-ST elevation myocardial infarction, most likely secondary to demand ischemia. 11. Anemia of chronic kidney disease. 12. History of DVT of lower extremity. 13. Chronic Congestive heart failure with reduced ejection fraction. 14. Hypertension. 15. Chronic lymphedema of lower extremity. PLAN: Telemetry Antibiotic: Rocephin IV, Decadron IV. Dr. Keiry Amezquita=Infectious Disease. Dr. Brownlee = Pulmonary and Critical Care Dr. Pantera Wallace = Nephrology. Code status: Full Code. DVT prophylaxis: Coumadin follow-up with cultures and laboratory in the morning. CODE STATUS: Full code. Johny Blankenship MD May 06, 2020 16:26
[2020-05-06 16:29] LABS: HEMATOCRIT 28.9 % (37.0-47.0); HEMOGLOBIN 9.3 G/DL (12.0-16.0); MEAN CORPUSCULAR VOLUME 86 FL (80-99); PLATELET COUNT 241 K/UL (150-450); RED BLOOD COUNT 3.35 M/UL (4.20-5.40); RED CELL DISTRIBUTION WIDTH 17.8 % (11.6-14.8)
[2020-05-06 16:34] LABS: WHITE BLOOD COUNT 23.9 K/UL (4.8-10.8)
[2020-05-06 16:52] LABS: CALCIUM 8.7 MG/DL (8.5-10.1); CREATININE 2.1 MG/DL (0.55-1.30); POTASSIUM 3.9 MMOL/L (3.5-5.1)
[2020-05-06 16:57] LABS: ALBUMIN 2.4 G/DL (3.4-5.0); ALBUMIN/GLOBULIN RATIO 0.6 (1.0-2.7); BILIRUBIN,TOTAL 0.4 MG/DL (0.2-1.0)
[2020-05-06 17:02] LABS: ALBUMIN 2.3 G/DL (3.4-5.0); ALBUMIN/GLOBULIN RATIO 0.6 (1.0-2.7); BILIRUBIN,TOTAL 0.4 MG/DL (0.2-1.0); CALCIUM 8.6 MG/DL (8.5-10.1); POTASSIUM 3.8 MMOL/L (3.5-5.1)
--- NOTE | 2020-05-06 19:08 | Cardiology Progress Note ---
Assessment/Plan Assessment/Plan 1. Acute COVID-19 infection. 2. Gram-negative andreina bacteremia. 3. Gram-negative urinary tract infection. 4. Permanent atrial fibrillation probable sick sinus / tach tania 5. Coagulopathy secondary to Coumadin and antibiotic interaction. 6. Renal insufficiency. 7. Diabetes mellitus. 8. PVCs versus aberrant conduction. sat 96-98% room air cxr reprot form yest reviewed trop likely abn due to renal insuf echo was done 10/2019 ef was ok abx, anticaog with heparin at time tachy and t time tania likely sick sinus on prn bb unable to use acei or arbs due to renal insuf on mx dose of norvasc may need addtion fo hydralazine as is on isordil aready avoid use of clonidine due to possible worsening of bradycardia has been fluid neg for a few days will hold off on repeating echo give acute covid infection and to avoid transmission to staff (3 other tech out with acute covid infection as well ) Subjective Subjective covid 19 acute infection was seen by other md notes reviewed per rn AOx4, on 2LNC breathing even and unlabored, no indications of respiratory distress, no active complaints of pain. Objective Last 24 Hour Vital Signs Date Time Temp Pulse Resp B/P (MAP) Pulse Ox O2 Delivery O2 Flow Rate FiO2 05/06/20 17:27 93 150/67 05/06/20 16:00 93 05/06/20 16:00 98.7 79 22 150/67 (94) 96 05/06/20 12:00 98.1 61 20 145/67 (93) 98 05/06/20 12:00 75 05/06/20 09:00 Room Air 05/06/20 08:52 80 158/76 05/06/20 08:52 158/76 05/06/20 08:00 96.7 80 21 158/76 (103) 97 05/06/20 08:00 102 05/06/20 02:30 84 05/06/20 01:31 69 05/06/20 00:00 98.1 78 20 141/80 (100) 96 05/05/20 21:00 Room Air 05/05/20 20:00 98.4 87 20 138/71 (93) 95 05/05/20 20:00 88 Intake and Output 05/05/20 05/06/20 19:00 07:00 Output Total 1500 ml 875 ml Balance -1500 ml -875 ml Output Urine Total 1500 ml 875 ml # Bowel Movements 1 Laboratory Tests Test 05/06/20 15:45 White Blood Count 23.9 K/UL (4.8-10.8) *H Red Blood Count 3.35 M/UL (4.20-5.40) L Hemoglobin 9.3 G/DL (12.0-16.0) L Hematocrit 28.9 % (37.0-47.0) L Mean Corpuscular Volume 86 FL (80-99) Mean Corpuscular Hemoglobin 27.7 PG (27.0-31.0) Mean Corpuscular Hemoglobin Concent 32.0 G/DL (32.0-36.0) Red Cell Distribution Width 17.8 % (11.6-14.8) H Platelet Count 241 K/UL (150-450) Mean Platelet Volume 10.4 FL (6.5-10.1) H Neutrophils (%) (Auto) % (45.0-75.0) Lymphocytes (%) (Auto) % (20.0-45.0) Monocytes (%) (Auto) % (1.0-10.0) Eosinophils (%) (Auto) % (0.0-3.0) Basophils (%) (Auto) % (0.0-2.0) Differential Total Cells Counted 100 Neutrophils % (Manual) 90 % (45-75) H Lymphocytes % (Manual) 4 % (20-45) L Monocytes % (Manual) 5 % (1-10) Eosinophils % (Manual) 1 % (0-3) Basophils % (Manual) 0 % (0-2) Band Neutrophils 0 % (0-8) Platelet Estimate Adequate Platelet Morphology Giant Platelets Occasional Poikilocytosis 1+ Anisocytosis 1+ Prothrombin Time 48.4 SEC (9.30-11.50) H Prothromb Time International Ratio 5.0 (0.9-1.1) H Sodium Level 141 MMOL/L (136-145) Potassium Level 3.9 MMOL/L (3.5-5.1) Chloride Level 108 MMOL/L (98-107) H Carbon Dioxide Level 26 MMOL/L (21-32) Anion Gap 7 mmol/L (5-15) Blood Urea Nitrogen 58 mg/dL (7-18) H Creatinine 2.1 MG/DL (0.55-1.30) H Estimat Glomerular Filtration Rate 27.9 mL/min (>60) Glucose Level 175 MG/DL (74-106) H Calcium Level 8.7 MG/DL (8.5-10.1) Phosphorus Level 3.0 MG/DL (2.5-4.9) Magnesium Level 1.7 MG/DL (1.8-2.4) L Total Bilirubin 0.4 MG/DL (0.2-1.0) Aspartate Amino Transf (AST/SGOT) 50 U/L (15-37) H Alanine Aminotransferase (ALT/SGPT) 48 U/L (12-78) Alkaline Phosphatase 87 U/L (46-116) C-Reactive Protein, Quantitative 15.0 mg/dL (0.00-0.90) H Pro-B-Type Natriuretic Peptide 7040 pg/mL (0-125) H Total Protein 6.2 G/DL (6.4-8.2) L Albumin 2.4 G/DL (3.4-5.0) L Globulin 3.8 g/dL Albumin/Globulin Ratio 0.6 (1.0-2.7) L Objective per dr al Lungs: fair inspiratory effort, decreased air at the bases, no Wheeze or Rales. Heart: Regular rate and rhythm, normal S1/S2, no murmurs/ Abdomen: soft, nontender, nondistended. Normoactive bowel sounds, morbid obesity. Extremities: No Cyanosis or clubbing, decreased edema bilateral lower extremitie Arun Barker MD May 06, 2020 19:08
[2020-05-06 20:00] VITALS: BP 130/78
[2020-05-06] MEDS: Miralax 17gm pkt ORAL SCH (21:00)
[2020-05-06] MEDS: cefTRIAXone 2 GM in D5W 55 ML IVPB SCH (21:00)
[2020-05-07] VITALS: BP 133/78
[2020-05-07 04:00] VITALS: BP 138/81
[2020-05-07] MEDS: NovoLOG Insulin Flexpen SUBQ SCH ×4 (06:08→21:45)
[2020-05-07 08:00] VITALS: BP 145/87
--- NOTE | 2020-05-07 08:40 | Infectious Diseases Prog Note ---
Assessment/Plan 74yo F with: Sepsis E.coli bacteremia 2/2 UTI COVID pna Acute hypoxia 2/2 COVID pna Leukocytosis to 24, improving 04/29 COVID rapid + BCx +E.coli S-CTX UA+, UCx +E.coli S-CTX CXR: No acute process 05/05 BCx NTD UA+, Ucx neg CXR: Worsening aeration suggesting CHF/interstitial edema. Superimposed pneumonia needs to be excluded clinically. C.dif neg LG on CKD, Cr in 3s, increasing >> improved slightly Afib DM Obesity Plan: Cont CTX 2g IV daily #7 for E.coli bacteremia, 10d course to be 04/29 - 05/09 OK to d/c home from ID standpoint on IV abx F/u 05/05 BCx - NTD Trend WBC now off steroids Trend temp curve 05/05 SP dex #6 given on RA 05/01 SP laisha #2 Not candidate for RDV given CrCl No convalescent plasma available at this institution, and not shown to improve mortality Monitor CBC/CMP Monitor temp curve, hemodynamics Monitor resp status D/w RN Thank you for this consult. [facility] will continue to follow. Subjective Allergies: Coded Allergies: CODEINE (Verified Allergy, Unknown, 10/10/19) AF Doing well on RA No more diarrhea, C.dif neg WBC improved to 11 Cr 1.9 Objective Last 24 Hour Vital Signs Date Time Temp Pulse Resp B/P (MAP) Pulse Ox O2 Delivery O2 Flow Rate FiO2 05/07/20 08:00 98.0 102 20 145/87 (106) 97 05/07/20 04:00 98.3 72 20 138/81 (100) 98 05/07/20 04:00 120 05/07/20 00:00 98.0 87 20 133/78 (96) 96 05/07/20 00:00 102 05/06/20 21:00 Room Air 05/06/20 20:00 98.1 94 20 130/78 (95) 97 05/06/20 20:00 73 05/06/20 17:27 93 150/67 05/06/20 16:00 93 05/06/20 16:00 98.7 79 22 150/67 (94) 96 05/06/20 12:00 98.1 61 20 145/67 (93) 98 05/06/20 12:00 75 05/06/20 09:00 Room Air 05/06/20 08:52 80 158/76 05/06/20 08:52 158/76 Height (Feet): 5 Height (Inches): 6.00 Weight (Pounds): 350 Gen: NAD HEENT: NCAT Pulm: BL chest rise Abd: Non-distended Ext: No c/c/e Skin: No visible rashes Neuro: Awake Microbiology Date/Time Source Procedure Growth Status 05/06/20 04:20 Stool Clostridium difficile Toxin Assay - Final Complete 05/05/20 11:50 Urine,Clean Catch Urine Culture - Preliminary NO GROWTH Resulted Laboratory Tests Test 05/06/20 15:45 White Blood Count 23.9 K/UL (4.8-10.8) *H Red Blood Count 3.35 M/UL (4.20-5.40) L Hemoglobin 9.3 G/DL (12.0-16.0) L Hematocrit 28.9 % (37.0-47.0) L Mean Corpuscular Volume 86 FL (80-99) Mean Corpuscular Hemoglobin 27.7 PG (27.0-31.0) Mean Corpuscular Hemoglobin Concent 32.0 G/DL (32.0-36.0) Red Cell Distribution Width 17.8 % (11.6-14.8) H Platelet Count 241 K/UL (150-450) Mean Platelet Volume 10.4 FL (6.5-10.1) H Neutrophils (%) (Auto) % (45.0-75.0) Lymphocytes (%) (Auto) % (20.0-45.0) Monocytes (%) (Auto) % (1.0-10.0) Eosinophils (%) (Auto) % (0.0-3.0) Basophils (%) (Auto) % (0.0-2.0) Differential Total Cells Counted 100 Neutrophils % (Manual) 90 % (45-75) H Lymphocytes % (Manual) 4 % (20-45) L Monocytes % (Manual) 5 % (1-10) Eosinophils % (Manual) 1 % (0-3) Basophils % (Manual) 0 % (0-2) Band Neutrophils 0 % (0-8) Platelet Estimate Adequate Platelet Morphology Giant Platelets Occasional Poikilocytosis 1+ Anisocytosis 1+ Prothrombin Time 48.4 SEC (9.30-11.50) H Prothromb Time International Ratio 5.0 (0.9-1.1) H Sodium Level 141 MMOL/L (136-145) Potassium Level 3.9 MMOL/L (3.5-5.1) Chloride Level 108 MMOL/L (98-107) H Carbon Dioxide Level 26 MMOL/L (21-32) Anion Gap 7 mmol/L (5-15) Blood Urea Nitrogen 58 mg/dL (7-18) H Creatinine 2.1 MG/DL (0.55-1.30) H Estimat Glomerular Filtration Rate 27.9 mL/min (>60) Glucose Level 175 MG/DL (74-106) H Calcium Level 8.7 MG/DL (8.5-10.1) Phosphorus Level 3.0 MG/DL (2.5-4.9) Magnesium Level 1.7 MG/DL (1.8-2.4) L Total Bilirubin 0.4 MG/DL (0.2-1.0) Aspartate Amino Transf (AST/SGOT) 50 U/L (15-37) H Alanine Aminotransferase (ALT/SGPT) 48 U/L (12-78) Alkaline Phosphatase 87 U/L (46-116) C-Reactive Protein, Quantitative 15.0 mg/dL (0.00-0.90) H Pro-B-Type Natriuretic Peptide 7040 pg/mL (0-125) H Total Protein 6.2 G/DL (6.4-8.2) L Albumin 2.4 G/DL (3.4-5.0) L Globulin 3.8 g/dL Albumin/Globulin Ratio 0.6 (1.0-2.7) L Current Medications Medications (Trade) Dose Ordered Sig/Adria Route PRN Reason Start Time Stop Time Status Last Admin Dose Admin Acetaminophen (Tylenol) 650 mg Q4H PRN ORAL Temp >100.5 04/29/20 14:00 05/29/20 13:59 05/05/20 11:43 Albuterol/ Ipratropium (Combivent Respimat) 1 puff Q4H PRN INH Shortness of Breath 04/29/20 14:00 05/29/20 13:59 Amlodipine Besylate (Norvasc) 5 mg BID ORAL 05/04/20 18:00 1/26/21 08:59 05/06/20 17:27 Ascorbic Acid (Vitamin C) 500 mg DAILY ORAL 05/01/20 09:00 05/31/20 08:59 05/06/20 08:52 Aspirin (ASA) 81 mg DAILY ORAL 05/01/20 09:00 06/15/20 08:59 05/06/20 08:52 Ceftriaxone Sodium 2 gm/ Dextrose 55 ml @ 110 mls/hr Q24H IVPB 05/01/20 21:00 05/09/20 23:59 05/06/20 21:00 Dextrose (Dextrose 50%) 25 ml Q30M PRN IV Hypoglycemia 05/01/20 15:30 07/30/20 15:29 Dextrose (Dextrose 50%) 50 ml Q30M PRN IV Hypoglycemia 05/01/20 15:30 07/30/20 15:29 Docusate Sodium (Colace) 100 mg THREE TIMES A DAY ORAL 05/01/20 18:00 05/31/20 17:59 05/06/20 08:52 Insulin Aspart (NovoLOG) BEFORE MEALS AND HS SUBQ 05/01/20 16:30 07/30/20 16:29 05/06/20 21:00 Insulin Detemir (Levemir) 20 units Q12HR SUBQ 05/04/20 21:00 07/31/20 13:29 05/06/20 21:00 Isosorbide Mononitrate (Imdur) 30 mg DAILY ORAL 05/01/20 09:00 05/31/20 08:59 05/06/20 08:52 Lorazepam (Ativan 2mg/ml 1ml) 2 mg Q2H PRN IV For Anxiety 05/05/20 08:30 05/12/20 08:29 Metoprolol Tartrate 2.5 mg/ Dextrose 57.5 ml @ 115 mls/hr Q4H PRN IVPB HR >118 05/04/20 21:00 06/03/20 20:59 05/05/20 13:11 Nateglinide (Starlix) 120 mg TIAC ORAL 05/01/20 16:30 05/31/20 16:29 05/07/20 05:52 Nitroglycerin (Ntg) 0.4 mg Q5MIN X 3 DOSES PRN SL CHEST PAIN 04/30/20 22:45 05/30/20 22:44 Ondansetron HCl (Zofran) 4 mg Q6H PRN IVP Nausea & Vomiting 04/29/20 14:00 05/29/20 13:59 Pantoprazole (Protonix) 40 mg EVERY 12 HOURS ORAL 05/01/20 21:00 05/31/20 20:59 05/06/20 21:00 Polyethylene Glycol (Miralax) 17 gm BEDTIME ORAL 05/03/20 21:00 06/02/20 20:59 05/04/20 21:04 Polyethylene Glycol (Miralax) 17 gm DAILYPRN PRN ORAL Constipation 04/29/20 14:00 05/29/20 13:59 Tramadol HCl (Ultram) 50 mg Q6H PRN ORAL For Pain 04/30/20 22:45 05/07/20 22:44 Warfarin Sodium (Coumadin per pharmacy) 1 ea DAILY PRN MISC Per rx protocol 04/30/20 22:45 05/30/20 22:44 Keiry Amezquita M.D. May 07, 2020 08:40
[2020-05-07] MEDS: Docusate 100mg cap ORAL SCH ×3 (08:56→17:01)
[2020-05-07] MEDS: Imdur 30mg tab ORAL SCH (08:56)
[2020-05-07] MEDS: Ascorbic Acid 500mg tab ORAL SCH (08:56)
[2020-05-07] MEDS: Aspirin Baby 81mg ORAL SCH (08:56)
[2020-05-07] MEDS: Levemir Flexpen SUBQ SCH ×2 (09:18→21:46)
[2020-05-07 10:12] LABS: BASOPHILS % (AUTO) 0.8 % (0.0-2.0); EOSINOPHILS % (AUTO) 1.4 % (0.0-3.0); HEMATOCRIT 28.5 % (37.0-47.0); LYMPHOCYTES % (AUTO) 10.6 % (20.0-45.0); MEAN CORPUSCULAR VOLUME 85 FL (80-99); MONOCYTES % (AUTO) 5.1 % (1.0-10.0); NEUTROPHILS % (AUTO) 82.2 % (45.0-75.0); PLATELET COUNT 238 K/UL (150-450); RED BLOOD COUNT 3.35 M/UL (4.20-5.40); RED CELL DISTRIBUTION WIDTH 17.9 % (11.6-14.8); WHITE BLOOD COUNT 11.6 K/UL (4.8-10.8)
[2020-05-07 10:24] LABS: CALCIUM 8.5 MG/DL (8.5-10.1); CREATININE 1.9 MG/DL (0.55-1.30); POTASSIUM 3.7 MMOL/L (3.5-5.1)
[2020-05-07 10:29] LABS: INR 4.7 (0.9-1.1)
--- NOTE | 2020-05-07 11:24 | Pulmonology Progress Note ---
Subjective ROS Limited/Unobtainable: Yes Interval Events: doing better Allergies: Coded Allergies: CODEINE (Verified Allergy, Unknown, 10/10/19) Objective Last 24 Hour Vital Signs Date Time Temp Pulse Resp B/P (MAP) Pulse Ox O2 Delivery O2 Flow Rate FiO2 05/07/20 09:00 Room Air 05/07/20 08:56 102 145/87 05/07/20 08:56 145/87 05/07/20 08:00 128 05/07/20 08:00 98.0 102 20 145/87 (106) 97 05/07/20 04:00 98.3 72 20 138/81 (100) 98 05/07/20 04:00 120 05/07/20 00:00 98.0 87 20 133/78 (96) 96 05/07/20 00:00 102 05/06/20 21:00 Room Air 05/06/20 20:00 98.1 94 20 130/78 (95) 97 05/06/20 20:00 73 05/06/20 17:27 93 150/67 05/06/20 16:00 93 05/06/20 16:00 98.7 79 22 150/67 (94) 96 05/06/20 12:00 98.1 61 20 145/67 (93) 98 05/06/20 12:00 75 Intake and Output 05/06/20 05/07/20 19:00 07:00 Intake Total 120 ml Output Total 1200 ml 700 ml Balance -1080 ml -700 ml Intake Oral 120 ml Output Urine Total 1200 ml 700 ml # Voids 3 # Bowel Movements 1 1 General Appearance: WD/WN HEENT: normocephalic, atraumatic Respiratory: chest wall non-tender, rhonchi - left, rhonchi - right Cardiovascular: normal peripheral pulses, normal rate, regular rhythm Abdomen: normal bowel sounds, soft, non tender, no organomegaly Genitourinary: normal external genitalia Extremities: no cyanosis Neurologic: assignment editor II-XII grossly normal Microbiology Date/Time Source Procedure Growth Status 05/06/20 04:20 Stool Clostridium difficile Toxin Assay - Final Complete 05/05/20 15:30 Blood Blood Culture - Preliminary NO GROWTH AFTER 24 HOURS Resulted 05/05/20 11:50 Urine,Clean Catch Urine Culture - Preliminary NO GROWTH Resulted Laboratory Tests 05/06/20 15:45: White Blood Count 23.9*H, Red Blood Count 3.35L, Hemoglobin 9.3L, Hematocrit 28.9L, Mean Corpuscular Volume 86, Mean Corpuscular Hemoglobin 27.7, Mean Corpuscular Hemoglobin Concent 32.0, Red Cell Distribution Width 17.8H, Platelet Count 241, Mean Platelet Volume 10.4H, Neutrophils (%) (Auto) , Lymphocytes (%) (Auto) , Monocytes (%) (Auto) , Eosinophils (%) (Auto) , Basophils (%) (Auto) , Differential Total Cells Counted 100, Neutrophils % (Manual) 90H, Lymphocytes % (Manual) 4L, Monocytes % (Manual) 5, Eosinophils % (Manual) 1, Basophils % (Manual) 0, Band Neutrophils 0, Platelet Estimate Adequate, Platelet Morphology , Giant Platelets Occasional, Poikilocytosis 1+, Anisocytosis 1+, Prothrombin Time 48.4H, Prothromb Time International Ratio 5.0H, Sodium Level 141, Potassium Level 3.9, Chloride Level 108H, Carbon Dioxide Level 26, Anion Gap 7, Blood Urea Nitrogen 58H, Creatinine 2.1H, Estimat Glomerular Filtration Rate 27.9, Glucose Level 175H, Calcium Level 8.7, Phosphorus Level 3.0, Magnesium Level 1.7L, Total Bilirubin 0.4, Aspartate Amino Transf (AST/SGOT) 50H, Alanine Aminotransferase (ALT/SGPT) 48, Alkaline Phosphatase 87, C-Reactive Protein, Quantitative 15.0H, Pro-B-Type Natriuretic Peptide 7040H, Total Protein 6.2L, Albumin 2.4L, Globulin 3.8, Albumin/Globulin Ratio 0.6L 05/07/20 10:00: White Blood Count 11.6#H, Red Blood Count 3.35L, Hemoglobin 9.0L, Hematocrit 28.5L, Mean Corpuscular Volume 85, Mean Corpuscular Hemoglobin 27.0, Mean Corpuscular Hemoglobin Concent 31.8L, Red Cell Distribution Width 17.9H, Platelet Count 238, Mean Platelet Volume 10.5H, Neutrophils (%) (Auto) 82.2H, Lymphocytes (%) (Auto) 10.6L, Monocytes (%) (Auto) 5.1, Eosinophils (%) (Auto) 1.4, Basophils (%) (Auto) 0.8, Prothrombin Time 46.2H, Prothromb Time International Ratio 4.7H, Sodium Level 140, Potassium Level 3.7, Chloride Level 108H, Carbon Dioxide Level 25, Anion Gap 7, Blood Urea Nitrogen 50H, Creatinine 1.9H, Estimat Glomerular Filtration Rate 31.3, Glucose Level 199H, Calcium Level 8.5 Current Medications Medications (Trade) Dose Ordered Sig/Adria Route PRN Reason Start Time Stop Time Status Last Admin Dose Admin Acetaminophen (Tylenol) 650 mg Q4H PRN ORAL Temp >100.5 04/29/20 14:00 05/29/20 13:59 05/05/20 11:43 Albuterol/ Ipratropium (Combivent Respimat) 1 puff Q4H PRN INH Shortness of Breath 04/29/20 14:00 05/29/20 13:59 Amlodipine Besylate (Norvasc) 5 mg BID ORAL 05/04/20 18:00 06/02/20 08:59 05/07/20 08:56 Ascorbic Acid (Vitamin C) 500 mg DAILY ORAL 05/01/20 09:00 05/31/20 08:59 05/07/20 08:56 Aspirin (ASA) 81 mg DAILY ORAL 05/01/20 09:00 06/15/20 08:59 05/07/20 08:56 Ceftriaxone Sodium 2 gm/ Dextrose 55 ml @ 110 mls/hr Q24H IVPB 05/01/20 21:00 05/09/20 23:59 05/06/20 21:00 Dextrose (Dextrose 50%) 25 ml Q30M PRN IV Hypoglycemia 05/01/20 15:30 07/30/20 15:29 Dextrose (Dextrose 50%) 50 ml Q30M PRN IV Hypoglycemia 05/01/20 15:30 07/30/20 15:29 Docusate Sodium (Colace) 100 mg THREE TIMES A DAY ORAL 05/01/20 18:00 05/31/20 17:59 05/07/20 08:56 Insulin Aspart (NovoLOG) BEFORE MEALS AND HS SUBQ 05/01/20 16:30 07/30/20 16:29 05/06/20 21:00 Insulin Detemir (Levemir) 20 units Q12HR SUBQ 05/04/20 21:00 07/31/20 13:29 05/07/20 09:18 Isosorbide Mononitrate (Imdur) 30 mg DAILY ORAL 05/01/20 09:00 05/31/20 08:59 05/07/20 08:56 Lorazepam (Ativan 2mg/ml 1ml) 2 mg Q2H PRN IV For Anxiety 05/05/20 08:30 05/12/20 08:29 Metoprolol Tartrate 2.5 mg/ Dextrose 57.5 ml @ 115 mls/hr Q4H PRN IVPB HR >118 05/04/20 21:00 06/03/20 20:59 05/05/20 13:11 Nateglinide (Starlix) 120 mg TIAC ORAL 05/01/20 16:30 05/31/20 16:29 05/07/20 05:52 Nitroglycerin (Ntg) 0.4 mg Q5MIN X 3 DOSES PRN SL CHEST PAIN 04/30/20 22:45 05/30/20 22:44 Ondansetron HCl (Zofran) 4 mg Q6H PRN IVP Nausea & Vomiting 04/29/20 14:00 05/29/20 13:59 Pantoprazole (Protonix) 40 mg EVERY 12 HOURS ORAL 05/01/20 21:00 05/31/20 20:59 05/07/20 08:56 Polyethylene Glycol (Miralax) 17 gm BEDTIME ORAL 05/03/20 21:00 06/02/20 20:59 05/04/20 21:04 Polyethylene Glycol (Miralax) 17 gm DAILYPRN PRN ORAL Constipation 04/29/20 14:00 05/29/20 13:59 Tramadol HCl (Ultram) 50 mg Q6H PRN ORAL For Pain 04/30/20 22:45 05/07/20 22:44 Warfarin Sodium (Coumadin per pharmacy) 1 ea DAILY PRN MISC Per rx protocol 04/30/20 22:45 05/30/20 22:44 Assessment/Plan Problems: (1) Bacteremia due to Gram-negative bacteria (2) 2019 novel coronavirus disease (COVID-19) (3) Sepsis (4) Atrial fibrillation, rapid (5) Diabetes mellitus (6) History of DVT (deep vein thrombosis) (7) Morbid obesity Assessment/Plan afebrile now Wbc lower today cxr 05/04: Cardiomegaly. No acute process cxr 05/05: Worsening aeration suggesting CHF/interstitial edema. Superimposed pneumonia needs to be excluded clinically. iv abx, as by ID titrate fio2 to sat of 92% respiratory treatment keep in monitored bed sliding scale dvt prophylaxis Bandar Brownlee MD May 07, 2020 11:24
--- NOTE | 2020-05-07 11:33 | Nephrology Progress Note ---
Assessment/Plan Problem List: (1) Renal failure (ARF), acute on chronic (2) Acute respiratory failure (3) Atrial fibrillation, rapid (4) Morbid obesity (5) Diabetes mellitus (6) NSTEMI (non-ST elevated myocardial infarction) Assessment 74-year-old female presents with acute respiratory failure she is morbidly obese Acute renal failure Underlying chronic kidney disease Chronic atrial fibrillation Diabetes mellitus/nephropathy History of DVT Sepsis Non-STEMI [place] Morbid obesity Anemia Plan May 07: Labs reviewed. Renal parameters improving. Leukocytosis improved. Continue per consultants. Per orders May 06: Today's chemistry panel still pending. Continue to monitor renal parameters. Medication list reviewed. Continue per consultants. May 05: No labs drawn today. Will check renal parameters and chemistries tomorrow. Continue per consultants May 04: Labs reviewed. Serum creatinine appears to be baseline. Levemir dose is increased. Continue to monitor renal parameters and electrolytes. Continue per consultants. May 03: Labs reviewed. Renal parameters improving. Blood sugar better controlled. Will increase Levemir dose. Vitamin D level pending. Continue per consultants. May 02: Serum creatinine lowering. Levemir insulin added for high blood sugar. Norvasc added for better blood pressure control. Continue per consultants. May 01: Serum creatinine 3. INR elevated. Hemoglobin lower. Continue normal saline 75 cc an hour. Starting Starlix for blood sugar control. Kidney ultrasound and 2D echocardiogram results noted. Per orders. Potassium supplement given. Continue to monitor renal parameters and electrolytes. April 30: We will start on renal diet medium carbs. Increase IV fluid to 100 cc an hour. 2D echocardiogram and kidney ultrasound pending. Continue to monitor renal parameters. Avoid nephrotoxic's. Keep the blood pressure and blood sugar in check. Previously: Anne catheter Urine studies Monitor electrolytes Kidney ultrasound Avoid nephrotoxic's 2D echocardiogram Albumin bolus Per orders Subjective ROS Limited/Unobtainable: No Constitutional: Reports: malaise, weakness Objective Objective Last 24 Hour Vital Signs Date Time Temp Pulse Resp B/P (MAP) Pulse Ox O2 Delivery O2 Flow Rate FiO2 05/07/20 09:00 Room Air 05/07/20 08:56 102 145/87 05/07/20 08:56 145/87 05/07/20 08:00 128 05/07/20 08:00 98.0 102 20 145/87 (106) 97 05/07/20 04:00 98.3 72 20 138/81 (100) 98 05/07/20 04:00 120 05/07/20 00:00 98.0 87 20 133/78 (96) 96 05/07/20 00:00 102 05/06/20 21:00 Room Air 05/06/20 20:00 98.1 94 20 130/78 (95) 97 05/06/20 20:00 73 05/06/20 17:27 93 150/67 05/06/20 16:00 93 05/06/20 16:00 98.7 79 22 150/67 (94) 96 05/06/20 12:00 98.1 61 20 145/67 (93) 98 05/06/20 12:00 75 Intake and Output 05/06/20 05/07/20 19:00 07:00 Intake Total 120 ml Output Total 1200 ml 700 ml Balance -1080 ml -700 ml Intake Oral 120 ml Output Urine Total 1200 ml 700 ml # Voids 3 # Bowel Movements 1 1 Laboratory Tests 05/06/20 15:45: White Blood Count 23.9*H, Red Blood Count 3.35L, Hemoglobin 9.3L, Hematocrit 28.9L, Mean Corpuscular Volume 86, Mean Corpuscular Hemoglobin 27.7, Mean Corpuscular Hemoglobin Concent 32.0, Red Cell Distribution Width 17.8H, Platelet Count 241, Mean Platelet Volume 10.4H, Neutrophils (%) (Auto) , Lymphocytes (%) (Auto) , Monocytes (%) (Auto) , Eosinophils (%) (Auto) , Basophils (%) (Auto) , Differential Total Cells Counted 100, Neutrophils % (Manual) 90H, Lymphocytes % (Manual) 4L, Monocytes % (Manual) 5, Eosinophils % (Manual) 1, Basophils % (Manual) 0, Band Neutrophils 0, Platelet Estimate Adequate, Platelet Morphology , Giant Platelets Occasional, Poikilocytosis 1+, Anisocytosis 1+, Prothrombin Time 48.4H, Prothromb Time International Ratio 5.0H, Sodium Level 141, Potassium Level 3.9, Chloride Level 108H, Carbon Dioxide Level 26, Anion Gap 7, Blood Urea Nitrogen 58H, Creatinine 2.1H, Estimat Glomerular Filtration Rate 27.9, Glucose Level 175H, Calcium Level 8.7, Phosphorus Level 3.0, Magnesium Level 1.7L, Total Bilirubin 0.4, Aspartate Amino Transf (AST/SGOT) 50H, Alanine Aminotransferase (ALT/SGPT) 48, Alkaline Phosphatase 87, C-Reactive Protein, Quantitative 15.0H, Pro-B-Type Natriuretic Peptide 7040H, Total Protein 6.2L, Albumin 2.4L, Globulin 3.8, Albumin/Globulin Ratio 0.6L 05/07/20 10:00: White Blood Count 11.6#H, Red Blood Count 3.35L, Hemoglobin 9.0L, Hematocrit 28.5L, Mean Corpuscular Volume 85, Mean Corpuscular Hemoglobin 27.0, Mean Corpuscular Hemoglobin Concent 31.8L, Red Cell Distribution Width 17.9H, Platelet Count 238, Mean Platelet Volume 10.5H, Neutrophils (%) (Auto) 82.2H, Lymphocytes (%) (Auto) 10.6L, Monocytes (%) (Auto) 5.1, Eosinophils (%) (Auto) 1.4, Basophils (%) (Auto) 0.8, Prothrombin Time 46.2H, Prothromb Time International Ratio 4.7H, Sodium Level 140, Potassium Level 3.7, Chloride Level 108H, Carbon Dioxide Level 25, Anion Gap 7, Blood Urea Nitrogen 50H, Creatinine 1.9H, Estimat Glomerular Filtration Rate 31.3, Glucose Level 199H, Calcium Level 8.5 Height (Feet): 5 Height (Inches): 6.00 Weight (Pounds): 350 General Appearance: no apparent distress Cardiovascular: tachycardia Respiratory/Chest: decreased breath sounds Abdomen: distended Pantera Wallace MD May 07, 2020 11:33
[2020-05-07 12:00] VITALS: BP 139/81
[2020-05-07 16:00] VITALS: BP 135/79
--- NOTE | 2020-05-07 18:14 | Cardiology Progress Note ---
Assessment/Plan Assessment/Plan 1. Acute COVID-19 infection. 2. Gram-negative andreina bacteremia. 3. Gram-negative urinary tract infection. 4. Permanent atrial fibrillation probable sick sinus / tach tania 5. Coagulopathy secondary to Coumadin and antibiotic interaction. 6. Renal insufficiency. 7. Diabetes mellitus. 8. PVCs versus aberrant conduction. sat 96-98% room air trop likely abn due to renal insuf echo was done 10/2019 ef was ok abx, anticaog with heparin at time tachy now no longer sig baredy will sta on low dose metoprolo with hodl parameter unable to use acei or arbs due to renal insuf on mx dose of norvasc may need addtion fo hydralazine as is on isordil aready avoid use of clonidine due to possible worsening of bradycardia has been fluid neg for a few days will hold off on repeating echo give acute covid infection and to avoid transmission to staff (3 other tech out with acute covid infection as well ) Subjective Subjective covid 19 acute infection was seen by other md notes reviewed per rneatign well saturaing well no compliant of pain no sig cough no diarrhea Objective Last 24 Hour Vital Signs Date Time Temp Pulse Resp B/P (MAP) Pulse Ox O2 Delivery O2 Flow Rate FiO2 05/07/20 17:02 73 135/79 05/07/20 16:00 97.2 73 20 135/79 (97) 97 05/07/20 16:00 74 05/07/20 12:00 97.7 117 18 139/81 (100) 98 05/07/20 12:00 75 05/07/20 09:00 Room Air 05/07/20 08:56 102 145/87 05/07/20 08:56 145/87 05/07/20 08:00 128 05/07/20 08:00 98.0 102 20 145/87 (106) 97 05/07/20 04:00 98.3 72 20 138/81 (100) 98 05/07/20 04:00 120 05/07/20 00:00 98.0 87 20 133/78 (96) 96 05/07/20 00:00 102 05/06/20 21:00 Room Air 05/06/20 20:00 98.1 94 20 130/78 (95) 97 05/06/20 20:00 73 Intake and Output 05/06/20 05/07/20 19:00 07:00 Intake Total 120 ml Output Total 1200 ml 700 ml Balance -1080 ml -700 ml Intake Oral 120 ml Output Urine Total 1200 ml 700 ml # Voids 3 # Bowel Movements 1 1 Laboratory Tests Test 05/07/20 10:00 White Blood Count 11.6 K/UL (4.8-10.8) #H Red Blood Count 3.35 M/UL (4.20-5.40) L Hemoglobin 9.0 G/DL (12.0-16.0) L Hematocrit 28.5 % (37.0-47.0) L Mean Corpuscular Volume 85 FL (80-99) Mean Corpuscular Hemoglobin 27.0 PG (27.0-31.0) Mean Corpuscular Hemoglobin Concent 31.8 G/DL (32.0-36.0) L Red Cell Distribution Width 17.9 % (11.6-14.8) H Platelet Count 238 K/UL (150-450) Mean Platelet Volume 10.5 FL (6.5-10.1) H Neutrophils (%) (Auto) 82.2 % (45.0-75.0) H Lymphocytes (%) (Auto) 10.6 % (20.0-45.0) L Monocytes (%) (Auto) 5.1 % (1.0-10.0) Eosinophils (%) (Auto) 1.4 % (0.0-3.0) Basophils (%) (Auto) 0.8 % (0.0-2.0) Prothrombin Time 46.2 SEC (9.30-11.50) H Prothromb Time International Ratio 4.7 (0.9-1.1) H Sodium Level 140 MMOL/L (136-145) Potassium Level 3.7 MMOL/L (3.5-5.1) Chloride Level 108 MMOL/L (98-107) H Carbon Dioxide Level 25 MMOL/L (21-32) Anion Gap 7 mmol/L (5-15) Blood Urea Nitrogen 50 mg/dL (7-18) H Creatinine 1.9 MG/DL (0.55-1.30) H Estimat Glomerular Filtration Rate 31.3 mL/min (>60) Glucose Level 199 MG/DL (74-106) H Calcium Level 8.5 MG/DL (8.5-10.1) Microbiology Date/Time Source Procedure Growth Status 05/06/20 04:20 Stool Clostridium difficile Toxin Assay - Final Complete 05/05/20 15:30 Blood Blood Culture - Preliminary NO GROWTH AFTER 24 HOURS Resulted 05/05/20 11:50 Urine,Clean Catch Urine Culture - Final NO GROWTH AFTER 48 HOURS Complete Objective per dr al Lungs: fair inspiratory effort, decreased air at the bases, no Wheeze or Rales. Heart: Regular rate and rhythm, normal S1/S2, no murmurs/ Abdomen: soft, nontender, nondistended. Normoactive bowel sounds, morbid obesity. Extremities: No Cyanosis or clubbing, decreased edema bilateral lower extremitie Arun Barker MD May 07, 2020 18:14
--- NOTE | 2020-05-07 19:26 | Internal Med Progress Note ---
Subjective Date of Service: May 07, 2020 Physician Name PattieJohny Attending Physician Aleksandr Vega MD Current Medications Medications (Trade) Dose Ordered Sig/Adria Route PRN Reason Start Time Stop Time Status Last Admin Dose Admin Acetaminophen (Tylenol) 650 mg Q4H PRN ORAL Temp >100.5 04/29/20 14:00 05/29/20 13:59 05/05/20 11:43 Albuterol/ Ipratropium (Combivent Respimat) 1 puff Q4H PRN INH Shortness of Breath 04/29/20 14:00 05/29/20 13:59 Amlodipine Besylate (Norvasc) 5 mg BID ORAL 05/04/20 18:00 06/02/20 08:59 05/07/20 17:02 Ascorbic Acid (Vitamin C) 500 mg DAILY ORAL 05/01/20 09:00 05/31/20 08:59 05/07/20 08:56 Aspirin (ASA) 81 mg DAILY ORAL 05/01/20 09:00 06/15/20 08:59 05/07/20 08:56 Ceftriaxone Sodium 2 gm/ Dextrose 55 ml @ 110 mls/hr Q24H IVPB 05/01/20 21:00 05/09/20 23:59 05/06/20 21:00 Dextrose (Dextrose 50%) 25 ml Q30M PRN IV Hypoglycemia 05/01/20 15:30 07/30/20 15:29 Dextrose (Dextrose 50%) 50 ml Q30M PRN IV Hypoglycemia 05/01/20 15:30 07/30/20 15:29 Docusate Sodium (Colace) 100 mg THREE TIMES A DAY ORAL 05/01/20 18:00 05/31/20 17:59 05/07/20 08:56 Insulin Aspart (NovoLOG) BEFORE MEALS AND HS SUBQ 05/01/20 16:30 07/30/20 16:29 05/07/20 17:02 Insulin Detemir (Levemir) 20 units Q12HR SUBQ 05/04/20 21:00 07/31/20 13:29 05/07/20 09:18 Isosorbide Mononitrate (Imdur) 30 mg DAILY ORAL 05/01/20 09:00 05/31/20 08:59 05/07/20 08:56 Lorazepam (Ativan 2mg/ml 1ml) 2 mg Q2H PRN IV For Anxiety 05/05/20 08:30 05/12/20 08:29 Metoprolol Tartrate (Lopressor) 12.5 mg Q12HR ORAL 05/07/20 21:00 08/05/20 20:59 Metoprolol Tartrate 2.5 mg/ Dextrose 57.5 ml @ 115 mls/hr Q4H PRN IVPB HR >118 05/04/20 21:00 06/03/20 20:59 05/05/20 13:11 Nateglinide (Starlix) 120 mg TIAC ORAL 05/01/20 16:30 05/31/20 16:29 05/07/20 11:53 Nitroglycerin (Ntg) 0.4 mg Q5MIN X 3 DOSES PRN SL CHEST PAIN 04/30/20 22:45 05/30/20 22:44 Ondansetron HCl (Zofran) 4 mg Q6H PRN IVP Nausea & Vomiting 04/29/20 14:00 05/29/20 13:59 Pantoprazole (Protonix) 40 mg EVERY 12 HOURS ORAL 05/01/20 21:00 05/31/20 20:59 05/07/20 08:56 Polyethylene Glycol (Miralax) 17 gm BEDTIME ORAL 05/03/20 21:00 06/02/20 20:59 05/04/20 21:04 Polyethylene Glycol (Miralax) 17 gm DAILYPRN PRN ORAL Constipation 04/29/20 14:00 05/29/20 13:59 Tramadol HCl (Ultram) 50 mg Q6H PRN ORAL For Pain 04/30/20 22:45 05/07/20 22:44 Warfarin Sodium (Coumadin per pharmacy) 1 ea DAILY PRN MISC Per rx protocol 04/30/20 22:45 05/30/20 22:44 Allergies: Coded Allergies: CODEINE (Verified Allergy, Unknown, 10/10/19) ROS Limited/Unobtainable: Yes Subjective 74 YO F admitted with shortness of breath. Now COVID 19, sepsis, UTI and pneumonia. Cover for Int Med-Tele Objective Last Vital Signs Date Time Temp Pulse Resp B/P (MAP) Pulse Ox O2 Delivery O2 Flow Rate FiO2 05/07/20 17:02 73 135/79 05/07/20 16:00 97.2 20 97 05/07/20 09:00 Room Air 05/02/20 21:00 2.0 04/29/20 15:28 30 Laboratory Tests Test 05/07/20 10:00 White Blood Count 11.6 K/UL (4.8-10.8) #H Red Blood Count 3.35 M/UL (4.20-5.40) L Hemoglobin 9.0 G/DL (12.0-16.0) L Hematocrit 28.5 % (37.0-47.0) L Mean Corpuscular Volume 85 FL (80-99) Mean Corpuscular Hemoglobin 27.0 PG (27.0-31.0) Mean Corpuscular Hemoglobin Concent 31.8 G/DL (32.0-36.0) L Red Cell Distribution Width 17.9 % (11.6-14.8) H Platelet Count 238 K/UL (150-450) Mean Platelet Volume 10.5 FL (6.5-10.1) H Neutrophils (%) (Auto) 82.2 % (45.0-75.0) H Lymphocytes (%) (Auto) 10.6 % (20.0-45.0) L Monocytes (%) (Auto) 5.1 % (1.0-10.0) Eosinophils (%) (Auto) 1.4 % (0.0-3.0) Basophils (%) (Auto) 0.8 % (0.0-2.0) Prothrombin Time 46.2 SEC (9.30-11.50) H Prothromb Time International Ratio 4.7 (0.9-1.1) H Sodium Level 140 MMOL/L (136-145) Potassium Level 3.7 MMOL/L (3.5-5.1) Chloride Level 108 MMOL/L (98-107) H Carbon Dioxide Level 25 MMOL/L (21-32) Anion Gap 7 mmol/L (5-15) Blood Urea Nitrogen 50 mg/dL (7-18) H Creatinine 1.9 MG/DL (0.55-1.30) H Estimat Glomerular Filtration Rate 31.3 mL/min (>60) Glucose Level 199 MG/DL (74-106) H Calcium Level 8.5 MG/DL (8.5-10.1) Microbiology Date/Time Source Procedure Growth Status 12/30/20 04:20 Stool Clostridium difficile Toxin Assay - Final Complete 05/05/20 15:30 Blood Blood Culture - Preliminary NO GROWTH AFTER 24 HOURS Resulted 05/05/20 11:50 Urine,Clean Catch Urine Culture - Final NO GROWTH AFTER 48 HOURS Complete Intake and Output 05/06/20 05/07/20 19:00 07:00 Intake Total 120 ml Output Total 1200 ml 700 ml Balance -1080 ml -700 ml Intake Oral 120 ml Output Urine Total 1200 ml 700 ml # Voids 3 # Bowel Movements 1 1 Objective Objective General: No acute distress, awake and alert HEENT: NCAT, sclera anicteric, PERRL, EOMI. Neck: Supple, no significant jugular venous distention, Lungs: fair inspiratory effort, decreased air at the bases, no Wheeze or Rales. Heart: Regular rate and rhythm, normal S1/S2, no murmurs/ Abdomen: soft, nontender, nondistended. Normoactive bowel sounds, morbid obesity. / Rectal: Refused and deferred. Extremities: No Cyanosis or clubbing, decreased edema bilateral lower extremities. Neuro: A&O x 3, Able to move all extremities Skin: warm, no rashes or lesions Psych: Normal mood and affect Assessment/Plan Assessment/Plan Assessment/Plan Assessment/Plan 1. Acute hypoxemic respiratory failure. 2. COVID-19 pneumonia. 3. Acute renal failure on chronic renal insufficiency. 4. E. Coli Sepsis / Bacteremia. 5. Acute E. Coli urinary tract infection. 6. Morbid obesity. 7. Chronic atrial fibrillation with rapid ventricular rate. 8. Diabetes type 2. 9. Coronary artery disease with prior history of myocardial infarction. 10. Non-ST elevation myocardial infarction, most likely secondary to demand ischemia. 11. Anemia of chronic kidney disease. 12. History of DVT of lower extremity. 13. Chronic Congestive heart failure with reduced ejection fraction. 14. Hypertension. 15. Chronic lymphedema of lower extremity. PLAN: Telemetry Antibiotic: Rocephin IV, Decadron IV. Dr. Keiry Amezquita=Infectious Disease. Dr. Brownlee = Pulmonary and Critical Care Dr. Pantera Wallace = Nephrology. Code status: Full Code. DVT prophylaxis: Coumadin follow-up with cultures and laboratory in the morning. CODE STATUS: Full code. Johny Blankenship MD May 07, 2020 19:26
[2020-05-07 20:00] VITALS: BP 152/89
[2020-05-07] MEDS: Miralax 17gm pkt ORAL SCH (21:00)
[2020-05-07] MEDS: cefTRIAXone 2 GM in D5W 55 ML IVPB SCH (21:43)
[2020-05-07] MEDS: Metoprolol Tartrate 12.5mg TAB ORAL SCH (21:43)
[2020-05-08] VITALS (7 sets, daily range): BP systolic 134–148; BP diastolic 65–93
[2020-05-08] MEDS: NovoLOG Insulin Flexpen SUBQ SCH ×4 (06:30→20:49)
[2020-05-08] MEDS: Aspirin Baby 81mg ORAL SCH (08:45)
[2020-05-08] MEDS: Imdur 30mg tab ORAL SCH (08:47)
[2020-05-08] MEDS: Docusate 100mg cap ORAL SCH ×2 (08:48→12:33)
[2020-05-08] MEDS: Ascorbic Acid 500mg tab ORAL SCH (08:48)
[2020-05-08] MEDS: Metoprolol Tartrate 12.5mg TAB ORAL SCH ×2 (08:48→20:20)
--- NOTE | 2020-05-08 08:55 | Infectious Diseases Prog Note ---
Assessment/Plan 74yo F with: Sepsis E.coli bacteremia 2/2 UTI COVID pna Acute hypoxia 2/2 COVID pna Leukocytosis to 24, improving 04/29 COVID rapid + BCx +E.coli S-CTX UA+, UCx +E.coli S-CTX CXR: No acute process 05/05 BCx NTD UA+, Ucx neg CXR: Worsening aeration suggesting CHF/interstitial edema. Superimposed pneumonia needs to be excluded clinically. C.dif neg LG on CKD, Cr in 3s, increasing >> improved slightly Afib DM Obesity Plan: Cont CTX 2g IV daily #8 for E.coli bacteremia, 10d course to be 04/29 - 05/09 OK to d/c from ID standpoint on IV abx, last dose to abx to be tomorrow / F/u 05/05 BCx - NTD Trend WBC now off steroids Trend temp curve 05/05 SP dex #6 given on RA 05/01 SP laisha #2 Not candidate for RDV given CrCl No convalescent plasma available at this institution, and not shown to improve mortality Monitor CBC/CMP Monitor temp curve, hemodynamics Monitor resp status D/w RN Thank you for this consult. [facility] will continue to follow. Subjective Allergies: Coded Allergies: CODEINE (Verified Allergy, Unknown, 10/10/19) AF Doing well on RA NAD WBC 11, stable Cr improving to 1.7 Objective Last 24 Hour Vital Signs Date Time Temp Pulse Resp B/P (MAP) Pulse Ox O2 Delivery O2 Flow Rate FiO2 05/08/20 08:48 68 145/93 05/08/20 08:47 68 142/93 05/08/20 08:47 142/93 05/08/20 04:00 99.7 75 20 138/79 (98) 97 05/08/20 04:00 67 05/08/20 00:00 51 05/08/20 00:00 99.8 74 20 136/85 (102) 97 05/07/20 21:43 87 152/89 05/07/20 21:00 Room Air 05/07/20 20:00 76 05/07/20 20:00 98.9 87 20 152/89 (110) 97 05/07/20 17:02 73 135/79 05/07/20 16:00 97.2 73 20 135/79 (97) 97 05/07/20 16:00 74 05/07/20 12:00 97.7 117 18 139/81 (100) 98 05/07/20 12:00 75 05/07/20 09:00 Room Air 05/07/20 08:56 102 145/87 05/07/20 08:56 145/87 Height (Feet): 5 Height (Inches): 6.00 Weight (Pounds): 350 Gen: NAD HEENT: NCAT Pulm: BL chest rise Abd: Non-distended Ext: No c/c/e Skin: No visible rashes Neuro: Awake Microbiology Date/Time Source Procedure Growth Status 05/06/20 04:20 Stool Clostridium difficile Toxin Assay - Final Complete 05/05/20 15:30 Blood Blood Culture - Preliminary NO GROWTH AFTER 48 HOURS Resulted 05/05/20 11:50 Urine,Clean Catch Urine Culture - Final NO GROWTH AFTER 48 HOURS Complete Laboratory Tests Test 05/07/20 10:00 05/08/20 05:38 White Blood Count 11.6 K/UL (4.8-10.8) #H Red Blood Count 3.35 M/UL (4.20-5.40) L Hemoglobin 9.0 G/DL (12.0-16.0) L Hematocrit 28.5 % (37.0-47.0) L Mean Corpuscular Volume 85 FL (80-99) Mean Corpuscular Hemoglobin 27.0 PG (27.0-31.0) Mean Corpuscular Hemoglobin Concent 31.8 G/DL (32.0-36.0) L Red Cell Distribution Width 17.9 % (11.6-14.8) H Platelet Count 238 K/UL (150-450) Mean Platelet Volume 10.5 FL (6.5-10.1) H Neutrophils (%) (Auto) 82.2 % (45.0-75.0) H Lymphocytes (%) (Auto) 10.6 % (20.0-45.0) L Monocytes (%) (Auto) 5.1 % (1.0-10.0) Eosinophils (%) (Auto) 1.4 % (0.0-3.0) Basophils (%) (Auto) 0.8 % (0.0-2.0) Prothrombin Time 46.2 SEC (9.30-11.50) H Prothromb Time International Ratio 4.7 (0.9-1.1) H Sodium Level 140 MMOL/L (136-145) Potassium Level 3.7 MMOL/L (3.5-5.1) Chloride Level 108 MMOL/L (98-107) H Carbon Dioxide Level 25 MMOL/L (21-32) Anion Gap 7 mmol/L (5-15) Blood Urea Nitrogen 50 mg/dL (7-18) H Creatinine 1.9 MG/DL (0.55-1.30) H Estimat Glomerular Filtration Rate 31.3 mL/min (>60) Glucose Level 199 MG/DL (74-106) H Calcium Level 8.5 MG/DL (8.5-10.1) POC Whole Blood Glucose 74 MG/DL (74-106) Current Medications Medications (Trade) Dose Ordered Sig/Adria Route PRN Reason Start Time Stop Time Status Last Admin Dose Admin Acetaminophen (Tylenol) 650 mg Q4H PRN ORAL Temp >100.5 04/29/20 14:00 05/29/20 13:59 05/05/20 11:43 Albuterol/ Ipratropium (Combivent Respimat) 1 puff Q4H PRN INH Shortness of Breath 04/29/20 14:00 05/29/20 13:59 Amlodipine Besylate (Norvasc) 5 mg BID ORAL 05/04/20 18:00 06/02/20 08:59 05/08/20 08:47 Ascorbic Acid (Vitamin C) 500 mg DAILY ORAL 05/01/20 09:00 05/31/20 08:59 05/08/20 08:48 Aspirin (ASA) 81 mg DAILY ORAL 05/01/20 09:00 06/15/20 08:59 05/08/20 08:45 Ceftriaxone Sodium 2 gm/ Dextrose 55 ml @ 110 mls/hr Q24H IVPB 05/01/20 21:00 05/09/20 23:59 05/07/20 21:43 Dextrose (Dextrose 50%) 25 ml Q30M PRN IV Hypoglycemia 05/01/20 15:30 07/30/20 15:29 Dextrose (Dextrose 50%) 50 ml Q30M PRN IV Hypoglycemia 05/01/20 15:30 07/30/20 15:29 Docusate Sodium (Colace) 100 mg THREE TIMES A DAY ORAL 05/01/20 18:00 05/31/20 17:59 05/07/20 08:56 Insulin Aspart (NovoLOG) BEFORE MEALS AND HS SUBQ 05/01/20 16:30 07/30/20 16:29 05/07/20 21:45 Insulin Detemir (Levemir) 20 units Q12HR SUBQ 05/04/20 21:00 07/31/20 13:29 05/07/20 21:46 Isosorbide Mononitrate (Imdur) 30 mg DAILY ORAL 05/01/20 09:00 05/31/20 08:59 05/08/20 08:47 Lorazepam (Ativan 2mg/ml 1ml) 2 mg Q2H PRN IV For Anxiety 05/05/20 08:30 05/12/20 08:29 Metoprolol Tartrate (Lopressor) 12.5 mg Q12HR ORAL 05/07/20 21:00 08/05/20 20:59 05/08/20 08:48 Metoprolol Tartrate 2.5 mg/ Dextrose 57.5 ml @ 115 mls/hr Q4H PRN IVPB HR >118 05/04/20 21:00 06/03/20 20:59 05/05/20 13:11 Nateglinide (Starlix) 120 mg TIAC ORAL 05/01/20 16:30 05/31/20 16:29 05/07/20 11:53 Nitroglycerin (Ntg) 0.4 mg Q5MIN X 3 DOSES PRN SL CHEST PAIN 04/30/20 22:45 05/30/20 22:44 Ondansetron HCl (Zofran) 4 mg Q6H PRN IVP Nausea & Vomiting 04/29/20 14:00 05/29/20 13:59 Pantoprazole (Protonix) 40 mg EVERY 12 HOURS ORAL 05/01/20 21:00 05/31/20 20:59 05/08/20 08:47 Polyethylene Glycol (Miralax) 17 gm BEDTIME ORAL 05/03/20 21:00 06/02/20 20:59 05/04/20 21:04 Polyethylene Glycol (Miralax) 17 gm DAILYPRN PRN ORAL Constipation 04/29/20 14:00 05/29/20 13:59 Warfarin Sodium (Coumadin per pharmacy) 1 ea DAILY PRN MISC Per rx protocol 04/30/20 22:45 05/30/20 22:44 Keiry Amezquita M.D. May 08, 2020 08:55
[2020-05-08] MEDS: Levemir Flexpen SUBQ SCH ×2 (09:00→20:50)
[2020-05-08 09:15] LABS: INR 3.8 (0.9-1.1)
[2020-05-08 09:21] LABS: ALBUMIN 2.5 G/DL (3.4-5.0); ALBUMIN/GLOBULIN RATIO 0.5 (1.0-2.7); BILIRUBIN,TOTAL 0.4 MG/DL (0.2-1.0); CALCIUM 9.2 MG/DL (8.5-10.1); CREATININE 1.7 MG/DL (0.55-1.30); PHOSPHORUS 3.4 MG/DL (2.5-4.9); POTASSIUM 3.8 MMOL/L (3.5-5.1)
[2020-05-08 09:26] LABS: BASOPHILS % (AUTO) 0.3 % (0.0-2.0); EOSINOPHILS % (AUTO) 1.6 % (0.0-3.0); HEMATOCRIT 32.7 % (37.0-47.0); HEMOGLOBIN 9.6 G/DL (12.0-16.0); LYMPHOCYTES % (AUTO) 9.6 % (20.0-45.0); MEAN CORPUSCULAR VOLUME 90 FL (80-99); MONOCYTES % (AUTO) 6.8 % (1.0-10.0); NEUTROPHILS % (AUTO) 81.7 % (45.0-75.0); PLATELET COUNT 273 K/UL (150-450); RED BLOOD COUNT 3.62 M/UL (4.20-5.40); RED CELL DISTRIBUTION WIDTH 17.5 % (11.6-14.8); WHITE BLOOD COUNT 11.6 K/UL (4.8-10.8)
--- NOTE | 2020-05-08 12:08 | Pulmonology Progress Note ---
Subjective ROS Limited/Unobtainable: Yes Interval Events: doing better Allergies: Coded Allergies: CODEINE (Verified Allergy, Unknown, 10/10/19) Subjective on RA, afebrile, denies chest pain, SOB in isolation no signs of resp distress on abx for bacteremia, 05/09/20 last day Objective Last 24 Hour Vital Signs Date Time Temp Pulse Resp B/P (MAP) Pulse Ox O2 Delivery O2 Flow Rate FiO2 05/08/20 09:00 Room Air 05/08/20 08:48 68 145/93 05/08/20 08:47 68 142/93 05/08/20 08:47 142/93 05/08/20 08:00 58 05/08/20 08:00 98.7 84 22 148/93 (111) 96 05/08/20 04:00 99.7 75 20 138/79 (98) 97 05/08/20 04:00 67 05/08/20 00:00 51 05/08/20 00:00 99.8 74 20 136/85 (102) 97 05/07/20 21:43 87 152/89 05/07/20 21:00 Room Air 05/07/20 20:00 76 05/07/20 20:00 98.9 87 20 152/89 (110) 97 05/07/20 17:02 73 135/79 05/07/20 16:00 97.2 73 20 135/79 (97) 97 05/07/20 16:00 74 05/07/20 12:00 97.7 117 18 139/81 (100) 98 05/07/20 12:00 75 Intake and Output 05/07/20 05/08/20 19:00 07:00 Intake Total 360 ml 250 ml Output Total 800 ml 1000 ml Balance -440 ml -750 ml Intake Oral 360 ml 250 ml Output Urine Total 800 ml 1000 ml # Bowel Movements 1 1 General Appearance: WD/WN - morbidly obese very pleasant AA female in NAD HEENT: normocephalic, atraumatic, anicteric, mucous membranes moist Respiratory: chest wall non-tender, lungs clear, no respiratory distress, no accessory muscle use Cardiovascular: normal peripheral pulses, normal rate, other - A fib Abdomen: normal bowel sounds, soft, non tender - obese Extremities: other - chronic lymphedema 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, alert, oriented x 3, responsive Musculoskeletal: normal muscle bulk Microbiology Date/Time Source Procedure Growth Status 05/06/20 04:20 Stool Clostridium difficile Toxin Assay - Final Complete 05/05/20 15:30 Blood Blood Culture - Preliminary NO GROWTH AFTER 48 HOURS Resulted Laboratory Tests 05/08/20 05:38: POC Whole Blood Glucose 74 05/08/20 07:20: White Blood Count 11.6H, Red Blood Count 3.62L, Hemoglobin 9.6L, Hematocrit 32.7L, Mean Corpuscular Volume 90, Mean Corpuscular Hemoglobin 26.5L, Mean Corpuscular Hemoglobin Concent 29.4L, Red Cell Distribution Width 17.5H, Platelet Count 273, Mean Platelet Volume 10.6H, Neutrophils (%) (Auto) 81.7H, Lymphocytes (%) (Auto) 9.6L, Monocytes (%) (Auto) 6.8, Eosinophils (%) (Auto) 1.6, Basophils (%) (Auto) 0.3, Prothrombin Time 38.0H, Prothromb Time International Ratio 3.8H, Sodium Level 142, Potassium Level 3.8, Chloride Level 109H, Carbon Dioxide Level 27, Anion Gap 6, Blood Urea Nitrogen 42H, Creatinine 1.7H, Estimat Glomerular Filtration Rate 35.6, Glucose Level 92#, Uric Acid 3.9, Calcium Level 9.2, Phosphorus Level 3.4, Magnesium Level 1.7L, Total Bilirubin 0.4, Aspartate Amino Transf (AST/SGOT) 38H, Alanine Aminotransferase (ALT/SGPT) 39, Alkaline Phosphatase 88, Total Protein 7.1, Albumin 2.5L, Globulin 4.6, Albumin/Globulin Ratio 0.5L Current Medications Medications (Trade) Dose Ordered Sig/Adria Route PRN Reason Start Time Stop Time Status Last Admin Dose Admin Acetaminophen (Tylenol) 650 mg Q4H PRN ORAL Temp >100.5 04/29/20 14:00 05/29/20 13:59 05/05/20 11:43 Albuterol/ Ipratropium (Combivent Respimat) 1 puff Q4H PRN INH Shortness of Breath 04/29/20 14:00 05/29/20 13:59 Amlodipine Besylate (Norvasc) 5 mg BID ORAL 05/04/20 18:00 06/02/20 08:59 05/08/20 08:47 Ascorbic Acid (Vitamin C) 500 mg DAILY ORAL 05/01/20 09:00 05/31/20 08:59 05/08/20 08:48 Aspirin (ASA) 81 mg DAILY ORAL 05/01/20 09:00 06/15/20 08:59 05/08/20 08:45 Ceftriaxone Sodium 2 gm/ Dextrose 55 ml @ 110 mls/hr Q24H IVPB 05/01/20 21:00 05/09/20 23:59 05/07/20 21:43 Dextrose (Dextrose 50%) 25 ml Q30M PRN IV Hypoglycemia 05/01/20 15:30 07/30/20 15:29 Dextrose (Dextrose 50%) 50 ml Q30M PRN IV Hypoglycemia 05/01/20 15:30 07/30/20 15:29 Docusate Sodium (Colace) 100 mg THREE TIMES A DAY ORAL 05/01/20 18:00 05/31/20 17:59 05/07/20 08:56 Insulin Aspart (NovoLOG) BEFORE MEALS AND HS SUBQ 05/01/20 16:30 07/30/20 16:29 05/07/20 21:45 Insulin Detemir (Levemir) 20 units Q12HR SUBQ 05/04/20 21:00 07/31/20 13:29 05/07/20 21:46 Isosorbide Mononitrate (Imdur) 30 mg DAILY ORAL 05/01/20 09:00 05/31/20 08:59 05/08/20 08:47 Lorazepam (Ativan 2mg/ml 1ml) 2 mg Q2H PRN IV For Anxiety 05/05/20 08:30 05/12/20 08:29 Metoprolol Tartrate (Lopressor) 12.5 mg Q12HR ORAL 05/07/20 21:00 08/05/20 20:59 05/08/20 08:48 Metoprolol Tartrate 2.5 mg/ Dextrose 57.5 ml @ 115 mls/hr Q4H PRN IVPB HR >118 05/04/20 21:00 06/03/20 20:59 05/05/20 13:11 Nateglinide (Starlix) 120 mg TIAC ORAL 05/01/20 16:30 05/31/20 16:05/07/20 11:53 Nitroglycerin (Ntg) 0.4 mg Q5MIN X 3 DOSES PRN SL CHEST PAIN 04/30/20 22:45 05/30/20 22:44 Ondansetron HCl (Zofran) 4 mg Q6H PRN IVP Nausea & Vomiting 04/29/20 14:00 05/29/20 13:59 Pantoprazole (Protonix) 40 mg EVERY 12 HOURS ORAL 05/01/20 21:00 05/31/20 20:59 05/08/20 08:47 Polyethylene Glycol (Miralax) 17 gm BEDTIME ORAL 05/03/20 21:00 06/02/20 20:59 05/04/20 21:04 Polyethylene Glycol (Miralax) 17 gm DAILYPRN PRN ORAL Constipation 04/29/20 14:00 05/29/20 13:59 Warfarin Sodium (Coumadin per pharmacy) 1 ea DAILY PRN MISC Per rx protocol 04/30/20 22:45 05/30/20 22:44 Assessment/Plan Assessment/Plan ASSESSMENT Covid PNA Acute hypoxemic respiratory failure ( initially, requiring NRM) -resolved Sepsis with bacteremia E. coli bacteremia due to UTI E. coli UTI Acute renal failure on chronic kidney disease Chronic atrial fibrillation Chronic anticoagulation Coagulopathy NSTEMI most likely secondary to demand ischemia Chronic diastolic CHF with pEF Chronic lymphedema lower extremity Hypertension Diabetes mellitus Morbid obesity PLAN OF CARE tele isolation O2 titrate to keep sat > 92%, currently on RA Albuterol MDI prn s/p steroids last CRP 15 CXR 05/05 Worsening aeration suggesting CHF/interstitial edema. Superimposed pneumonia needs to be excluded clinically. abx for UTI/bacteremia as per ID, 05/09/20 last day -Ceftriaxone repeated BCX 05/05 NGTD stool C dif NGT creat down to 1.7 LG resolved avoid nephrotoxics correct e/lytes as needed renal US NGT nephro follows cardio follows monitor volumes troponin trended down to nearly normal initial elevation likely due to demand 2 to infection ECHO with pEF 65%, severely elevated LA pressure grade 3, mild pulmonary hypertension a/PLT with ASA, BB and nitrite cardio follows remains in A fib , rate controlled Coumadin on hold given persistent coagulopathy, per pharmacy dosing, s/p vit K x 1 ; INR 3.8 this am BP management with BB and CCB BS management with LA Levemir and SSI as needed diabetic diet and diabetic teaching supportive care dc plan soon case discussed and evaluated by supervising physician Edilma Atkins NP May 08, 2020 12:08 Darwin Taylor MD May 08, 2020 19:52
--- NOTE | 2020-05-08 13:15 | Consultation ---
History of Present Illness General Date patient seen: May 08, 2020 Reason for Hospitalization: Fever Present Illness HPI This is a very pleasant 74-year-old female with Covid positive, UTI, bacteremia who is admitted on antibiotics being seen by infectious disease continue to have persistent diarrhea C. difficile negative surgery called to evaluate and assist with care. Patient seen, patient by, chart reviewed. Patient states she has minimal abdominal pain just mild discomfort main concern right now is the persistent diarrhea. No nausea vomiting at this time. Tolerating diet without issue. States she is having multiple bouts of diarrhea nonbloody recently. Allergies: Coded Allergies: CODEINE (Verified Allergy, Unknown, 10/10/19) COVID-19 Screening Contact w/high risk pt: No Recent Travel to affected area: No Experienced COVID-19 symptoms?: Yes Coronavirus symptoms experienc: Shortness of Breath Medication History Scheduled Allopurinol* (Allopurinol*), 300 MG ORAL DAILY Amlodipine Besylate* (Amlodipine Besylate*), 10 MG ORAL DAILY, (Reported) Ascorbic Acid* (Ascorbic Acid*), 500 MG ORAL DAILY, (Reported) Aspirin* (Aspirin*), 81 MG ORAL DAILY, (Reported) Brinzolamide/Brimonid Tart (Simbrinza 1%-0.2% Eye Drops), 8 ML OP TWICE A DAY, (Reported) Cholecalciferol (Vitamin D3) (Vitamin D3), 25 MCG PO DAILY, (Reported) Clonidine HCl (Clonidine HCl), 0.1 MG GT Q6HR, (Reported) Docusate Sodium* (Colace*), 100 MG ORAL THREE TIMES A DAY, (Reported) Furosemide* (Lasix*), 40 MG ORAL DAILY Gabapentin* (Gabapentin*), 100 MG ORAL THREE TIMES A DAY, (Reported) Glipizide* (Glipizide*), 5 MG ORAL DAILY, (Reported) Isosorbide Dinitrate (Isosorbide Dinitrate), 30 MG PO DAILY, (Reported) Lactobacillus Acidophilus (Acidophilus), 1 EACH PO DAILY, (Reported) Latanoprost/Pf (Latanoprost 0.005% Eye Drop), 1 DRP OP QHS, (Reported) Mag Hydrox/Al Hydrox/Simeth (Norma-Lanta Liquid), 15 ML PO Q6HR, (Reported) Metformin Hcl* (Metformin Hcl*), 500 MG ORAL TWICE A DAY, (Reported) Multivitamin with Minerals (Multivitamins with Minerals), 1 TAB ORAL DAILY, (Reported) Omeprazole (Omeprazole), 20 MG ORAL AC, (Reported) Polyethylene Glycol 3350* (Miralax*), 17 GM ORAL DAILY, (Reported) Simvastatin (Zocor), 10 MG ORAL BEDTIME, (Reported) Scheduled PRN Acetaminophen* (Acetaminophen 325MG Tablet*), 650 MG ORAL Q4H PRN for pain/fever, (Reported) Acetaminophen* (Acetaminophen 325MG Tablet*), 650 MG ORAL Q4H PRN for For Pain, (Reported) Hydrocodone Bit/Acetaminophen 5-325* (Whigham 5-325 Tablet*), 1 TAB ORAL Q8HR PRN for FOR PAIN, (Reported) Insulin Regular, Human* (Novolin R*), 0 SUBQ .SLIDING SCALE PRN for Sliding Scale, (Reported) Nitroglycerin 0.4MG table* (Nitroglycerin*), 0.4 MG SL .Q5MIN X 3 DOSES PRN for CHEST PAIN, (Reported) Discontinued Medications Tramadol Hcl* (Ultram*), 50 MG ORAL Q6H PRN for For Pain, (Reported) Discontinued Reason: Pt stopped taking med Warfarin Sod* (Warfarin Sod*), 12.5 MG ORAL DAILY, (Reported) Discontinued Reason: Therapy completed Patient History History Provided By: Patient, Medical Record, PMD Healthcare decision maker Resuscitation status Advanced Directive on File Past Medical/Surgical History Past Medical/Surgical History: (1) Hypoxia (2) Acute respiratory failure (3) Atrial fibrillation, rapid (4) Respiratory failure (5) Gram-negative bacteremia (6) 2019 novel coronavirus disease (COVID-19) (7) Bacteremia due to Gram-negative bacteria (8) Anasarca (9) Diabetes mellitus (10) Morbid obesity (11) Peripheral edema (12) Chronic atrial fibrillation (13) History of DVT (deep vein thrombosis) (14) Renal failure (ARF), acute on chronic (15) Limited mobility (16) Sepsis (17) NSTEMI (non-ST elevated myocardial infarction) Review of Systems Review of Symptoms General ROS: no weight loss or fever Psychological ROS: no depression or mood changes, no memory loss Ophthalmic ROS: no visual changes or eye irritation ENT ROS: no nasal congestion, hearing loss, dizziness Allergy and Immunology ROS: no allergic symptoms or urticaria Hematological and Lymphatic ROS: no swollen glands, unusual bleeding or bruising Endocrine ROS: no polyuria, polydipsia, weight changes, temperature intolerance Respiratory ROS: no cough, shortness of breath, or wheezing Cardiovascular ROS: no chest pain or dyspnea on exertion Gastrointestinal ROS: denies abdominal pain, bright red blood in stool. Musculoskeletal ROS: no myalgias or arthralgias Neurological ROS: no TIA or stroke symptoms Dermatological ROS: no new or changing skin lesions, rashes or pruritis Physical Exam Physical Exam General appearance: alert, cooperative, no distress, appears stated age Head: Normocephalic, without obvious abnormality, atraumatic Eyes: conjunctivae/corneas clear. PERRL, EOM's intact. Fundi benign Throat: Lips, mucosa, and tongue normal. Teeth and gums normal Neck: supple, symmetrical, trachea midline, no adenopathy, thyroid: not enlarged, symmetric, no tenderness/mass/nodules, no carotid bruit and no JVD Lungs: clear to auscultation bilaterally Heart: regular rate and rhythm, S1, S2 normal, no murmur, click, rub or gallop Abdomen: soft, non-tender. Bowel sounds normal. No masses, no organomegaly Extremities: extremities normal, atraumatic, no cyanosis or edema Pulses: 2+ and symmetric Skin: Skin color, texture, turgor normal. No rashes or lesions Neurologic: Grossly normal Last 24 Hour Vital Signs Date Time Temp Pulse Resp B/P (MAP) Pulse Ox O2 Delivery O2 Flow Rate FiO2 05/08/20 09:00 Room Air 05/08/20 08:48 68 145/93 05/08/20 08:47 68 142/93 05/08/20 08:47 142/93 05/08/20 08:00 58 05/08/20 08:00 98.7 84 22 148/93 (111) 96 05/08/20 04:00 99.7 75 20 138/79 (98) 97 05/08/20 04:00 67 05/08/20 00:00 51 05/08/20 00:00 99.8 74 20 136/85 (102) 97 05/07/20 21:43 87 152/89 05/07/20 21:00 Room Air 05/07/20 20:00 76 05/07/20 20:00 98.9 87 20 152/89 (110) 97 05/07/20 17:02 73 135/79 05/07/20 16:00 97.2 73 20 135/79 (97) 97 05/07/20 16:00 74 Intake and Output 05/07/20 05/08/20 19:00 07:00 Intake Total 360 ml 250 ml Output Total 800 ml 1000 ml Balance -440 ml -750 ml Intake Oral 360 ml 250 ml Output Urine Total 800 ml 1000 ml # Bowel Movements 1 1 Laboratory Tests Test 05/08/20 05:38 05/08/20 07:20 POC Whole Blood Glucose 74 MG/DL (74-106) White Blood Count 11.6 K/UL (4.8-10.8) H Red Blood Count 3.62 M/UL (4.20-5.40) L Hemoglobin 9.6 G/DL (12.0-16.0) L Hematocrit 32.7 % (37.0-47.0) L Mean Corpuscular Volume 90 FL (80-99) Mean Corpuscular Hemoglobin 26.5 PG (27.0-31.0) L Mean Corpuscular Hemoglobin Concent 29.4 G/DL (32.0-36.0) L Red Cell Distribution Width 17.5 % (11.6-14.8) H Platelet Count 273 K/UL (150-450) Mean Platelet Volume 10.6 FL (6.5-10.1) H Neutrophils (%) (Auto) 81.7 % (45.0-75.0) H Lymphocytes (%) (Auto) 9.6 % (20.0-45.0) L Monocytes (%) (Auto) 6.8 % (1.0-10.0) Eosinophils (%) (Auto) 1.6 % (0.0-3.0) Basophils (%) (Auto) 0.3 % (0.0-2.0) Prothrombin Time 38.0 SEC (9.30-11.50) H Prothromb Time International Ratio 3.8 (0.9-1.1) H Sodium Level 142 MMOL/L (136-145) Potassium Level 3.8 MMOL/L (3.5-5.1) Chloride Level 109 MMOL/L (98-107) H Carbon Dioxide Level 27 MMOL/L (21-32) Anion Gap 6 mmol/L (5-15) Blood Urea Nitrogen 42 mg/dL (7-18) H Creatinine 1.7 MG/DL (0.55-1.30) H Estimat Glomerular Filtration Rate 35.6 mL/min (>60) Glucose Level 92 MG/DL (74-106) # Uric Acid 3.9 MG/DL (2.6-7.2) Calcium Level 9.2 MG/DL (8.5-10.1) Phosphorus Level 3.4 MG/DL (2.5-4.9) Magnesium Level 1.7 MG/DL (1.8-2.4) L Total Bilirubin 0.4 MG/DL (0.2-1.0) Aspartate Amino Transf (AST/SGOT) 38 U/L (15-37) H Alanine Aminotransferase (ALT/SGPT) 39 U/L (12-78) Alkaline Phosphatase 88 U/L (46-116) Total Protein 7.1 G/DL (6.4-8.2) Albumin 2.5 G/DL (3.4-5.0) L Globulin 4.6 g/dL Albumin/Globulin Ratio 0.5 (1.0-2.7) L Height (Feet): 5 Height (Inches): 6.00 Weight (Pounds): 350 Medications Current Medications Medications (Trade) Dose Ordered Sig/Adria Route PRN Reason Start Time Stop Time Status Last Admin Dose Admin Acetaminophen (Tylenol) 650 mg Q4H PRN ORAL Temp >100.5 04/29/20 14:00 05/29/20 13:59 05/05/20 11:43 Albuterol/ Ipratropium (Combivent Respimat) 1 puff Q4H PRN INH Shortness of Breath 04/29/20 14:00 05/29/20 13:59 Amlodipine Besylate (Norvasc) 5 mg BID ORAL 05/04/20 18:00 06/02/20 08:59 05/08/20 08:47 Ascorbic Acid (Vitamin C) 500 mg DAILY ORAL 05/01/20 09:00 05/31/20 08:59 05/08/20 08:48 Aspirin (ASA) 81 mg DAILY ORAL 05/01/20 09:00 2/8/21 08:59 05/08/20 08:45 Ceftriaxone Sodium 2 gm/ Dextrose 55 ml @ 110 mls/hr Q24H IVPB 05/01/20 21:00 05/09/20 23:59 05/07/20 21:43 Dextrose (Dextrose 50%) 25 ml Q30M PRN IV Hypoglycemia 05/01/20 15:30 07/30/20 15:29 Dextrose (Dextrose 50%) 50 ml Q30M PRN IV Hypoglycemia 05/01/20 15:30 07/30/20 15:29 Docusate Sodium (Colace) 100 mg THREE TIMES A DAY ORAL 05/01/20 18:00 05/31/20 17:59 05/07/20 08:56 Insulin Aspart (NovoLOG) BEFORE MEALS AND HS SUBQ 05/01/20 16:30 07/30/20 16:29 05/08/20 11:46 Insulin Detemir (Levemir) 20 units Q12HR SUBQ 05/04/20 21:00 07/31/20 13:29 05/07/20 21:46 Isosorbide Mononitrate (Imdur) 30 mg DAILY ORAL 05/01/20 09:00 05/31/20 08:59 05/08/20 08:47 Lorazepam (Ativan 2mg/ml 1ml) 2 mg Q2H PRN IV For Anxiety 05/05/20 08:30 05/12/20 08:29 Metoprolol Tartrate (Lopressor) 12.5 mg Q12HR ORAL 05/07/20 21:00 08/05/20 20:59 05/08/20 08:48 Metoprolol Tartrate 2.5 mg/ Dextrose 57.5 ml @ 115 mls/hr Q4H PRN IVPB HR >118 05/04/20 21:00 06/03/20 20:59 05/05/20 13:11 Nateglinide (Starlix) 120 mg TIAC ORAL 05/01/20 16:30 05/31/20 16:29 05/08/20 11:45 Nitroglycerin (Ntg) 0.4 mg Q5MIN X 3 DOSES PRN SL CHEST PAIN 04/30/20 22:45 05/30/20 22:44 Ondansetron HCl (Zofran) 4 mg Q6H PRN IVP Nausea & Vomiting 04/29/20 14:00 05/29/20 13:59 Pantoprazole (Protonix) 40 mg EVERY 12 HOURS ORAL 05/01/20 21:00 05/31/20 20:59 05/08/20 08:47 Polyethylene Glycol (Miralax) 17 gm BEDTIME ORAL 05/03/20 21:00 06/02/20 20:59 05/04/20 21:04 Polyethylene Glycol (Miralax) 17 gm DAILYPRN PRN ORAL Constipation 04/29/20 14:00 05/29/20 13:59 Warfarin Sodium (Coumadin per pharmacy) 1 ea DAILY PRN MISC Per rx protocol 04/30/20 22:45 05/30/20 22:44 Assessment/Plan Problem List: (1) Diarrhea Assessment & Plan: 74-year-old female with loose diarrhea C. difficile negative Covid positive. No blood in stool identified. Abdominal exam benign clinically. Denies abdominal pain or discomfort at this time States she is tolerating diet well without concern. Bacteremia and UTI. On antibiotics leukocytosis abnormal labs Diarrhea potentially related to antibiotics. Recommend continuation at this time. Imaging ordered and will be reviewed. Thank you for allowing participate patient's care will follow with recommendations DAILY ESTIMATED NEEDS: Needs based on Mobid obesity, DM, Cardiac/ 74kg abw 20-25 kcals/kg 1823-0474 total kcals 1.25-1.5 g protein/kg 93-111 g total protein 20-25 mL/kg 3652-3986 total fluid mLs NUTRITION DIAGNOSIS: * Morbid obesity R/T life style factors and excessive energy intake [employer] as evidenced by BMI >50. * Altered nutrition related lab values R/T ARF, DM w/ steroidal med as evidenced by elev creat (3.2 -> 2.4 trend down), elev BGs (200's and 300's) pt on Decadron. CURRENT DIET:[facility] MED + RENAL PO DIET RECOMMENDATIONS: CCHO LOW, CARDIAC / texture as tolerated ADDITIONAL RECOMMENDATIONS: * Calibrated bedscale wt * Monitor BGs: 200's and 300's, pt on Decadron Monitor need to adjust insulin * Monitor renal fxn and lytes: creat improving at this time Lytes wnl . ICD Codes: R19.7 - Diarrhea, unspecified SNOMED: 34721252 (2) Hypoxia ICD Codes: R09.02 - Hypoxemia SNOMED: 481447543 (3) Acute respiratory failure Assessment & Plan: Stable cardiomegaly. There is worsening aeration with increased interstitial/rash or congestion. No dense consolidation. No significant pleural effusion. No pneumothorax. Osseous structures. No acute abnormal Impression: Worsening aeration suggesting CHF/interstitial edema. Superimposed pneumonia needs to be excluded clinically ICD Codes: J96.00 - Acute respiratory failure, unspecified whether with hypoxia or hypercapnia SNOMED: 61599688 (4) Atrial fibrillation, rapid ICD Codes: I48.91 - Unspecified atrial fibrillation SNOMED: 724720966 (5) Gram-negative bacteremia ICD Codes: R78.81 - Bacteremia SNOMED: 086860847558 (6) 2019 novel coronavirus disease (COVID-19) Assessment & Plan: ++ appreciate ID and pulm input ICD Codes: U07.1 - COVID-19 SNOMED: 439929493 (7) Bacteremia due to Gram-negative bacteria Assessment & Plan: on abx potential source of diarrhea cont diet c diff neg ICD Codes: R78.81 - Bacteremia SNOMED: 863489128586 (8) Respiratory failure ICD Codes: J96.90 - Respiratory failure, unspecified, unspecified whether with hypoxia or hypercapnia SNOMED: 151682070 (9) Anasarca ICD Codes: R60.1 - Generalized edema SNOMED: 497673255, 834218851 (10) Diabetes mellitus ICD Codes: E11.9 - Type 2 diabetes mellitus without complications SNOMED: 50727380 (11) Morbid obesity ICD Codes: E66.01 - Morbid (severe) obesity due to excess calories SNOMED: 402493360 (12) Peripheral edema ICD Codes: R60.9 - Edema, unspecified SNOMED: 785156435 (13) Chronic atrial fibrillation ICD Codes: I48.20 - Chronic atrial fibrillation, unspecified SNOMED: 896816219 (14) History of DVT (deep vein thrombosis) ICD Codes: Z86.718 - Personal history of other venous thrombosis and embolism SNOMED: 429923105 (15) Renal failure (ARF), acute on chronic ICD Codes: N17.9 - Acute kidney failure, unspecified; N18.9 - Chronic kidney disease, unspecified SNOMED: 033238561 (16) Limited mobility ICD Codes: Z74.09 - Other reduced mobility SNOMED: 7227901 (17) Sepsis ICD Codes: A41.9 - Sepsis, unspecified organism SNOMED: 62172879 (18) NSTEMI (non-ST elevated myocardial infarction) ICD Codes: I21.4 - Non-ST elevation (NSTEMI) myocardial infarction SNOMED: 04077102 Franco Baeza May 08, 2020 13:15
--- NOTE | 2020-05-08 14:37 | Internal Med Progress Note ---
Subjective Date of Service: May 08, 2020 Physician Name Johny Blankenship Attending Physician Aleksandr Vega MD Current Medications Medications (Trade) Dose Ordered Sig/Adria Route PRN Reason Start Time Stop Time Status Last Admin Dose Admin Acetaminophen (Tylenol) 650 mg Q4H PRN ORAL Temp >100.5 04/29/20 14:00 05/29/20 13:59 05/05/20 11:43 Albuterol/ Ipratropium (Combivent Respimat) 1 puff Q4H PRN INH Shortness of Breath 04/29/20 14:00 05/29/20 13:59 Amlodipine Besylate (Norvasc) 5 mg BID ORAL 05/04/20 18:00 06/02/20 08:59 05/08/20 08:47 Aspirin (ASA) 81 mg DAILY ORAL 05/01/20 09:00 06/15/20 08:59 05/08/20 08:45 Ceftriaxone Sodium 2 gm/ Dextrose 55 ml @ 110 mls/hr Q24H IVPB 05/01/20 21:00 05/09/20 23:59 05/07/20 21:43 Dextrose (Dextrose 50%) 25 ml Q30M PRN IV Hypoglycemia 05/01/20 15:30 07/30/20 15:29 Dextrose (Dextrose 50%) 50 ml Q30M PRN IV Hypoglycemia 05/01/20 15:30 07/30/20 15:29 Insulin Aspart (NovoLOG) BEFORE MEALS AND HS SUBQ 05/01/20 16:30 07/30/20 16:29 05/08/20 11:46 Insulin Detemir (Levemir) 20 units Q12HR SUBQ 05/04/20 21:00 07/31/20 13:29 05/07/20 21:46 Isosorbide Mononitrate (Imdur) 30 mg DAILY ORAL 05/01/20 09:00 05/31/20 08:59 05/08/20 08:47 Lorazepam (Ativan 2mg/ml 1ml) 2 mg Q2H PRN IV For Anxiety 05/05/20 08:30 05/12/20 08:29 Magnesium Sulfate 100 ml @ 100 mls/hr Q1H IVPB 05/08/20 14:30 05/08/20 16:29 05/08/20 14:26 Metoprolol Tartrate (Lopressor) 12.5 mg Q12HR ORAL 05/07/20 21:00 08/05/20 20:59 05/08/20 08:48 Metoprolol Tartrate 2.5 mg/ Dextrose 57.5 ml @ 115 mls/hr Q4H PRN IVPB HR >118 05/04/20 21:00 06/03/20 20:59 05/05/20 13:11 Nateglinide (Starlix) 120 mg TIAC ORAL 05/01/20 16:30 05/31/20 16:29 05/08/20 11:45 Nitroglycerin (Ntg) 0.4 mg Q5MIN X 3 DOSES PRN SL CHEST PAIN 04/30/20 22:45 05/30/20 22:44 Ondansetron HCl (Zofran) 4 mg Q6H PRN IVP Nausea & Vomiting 04/29/20 14:00 05/29/20 13:59 Pantoprazole (Protonix) 40 mg EVERY 12 HOURS ORAL 05/01/20 21:00 05/31/20 20:59 05/08/20 08:47 Warfarin Sodium (Coumadin per pharmacy) 1 ea DAILY PRN MISC Per rx protocol 04/30/20 22:45 05/30/20 22:44 Allergies: Coded Allergies: CODEINE (Verified Allergy, Unknown, 10/10/19) ROS Limited/Unobtainable: Yes Subjective 74 YO F admitted with shortness of breath. Now COVID 19, sepsis, UTI and pneumonia. Cover for Int Med-Tele Objective Last Vital Signs Date Time Temp Pulse Resp B/P (MAP) Pulse Ox O2 Delivery O2 Flow Rate FiO2 05/08/20 12:00 97.8 82 20 144/79 (100) 97 05/08/20 09:00 Room Air 05/02/20 21:00 2.0 04/29/20 15:28 30 Laboratory Tests Test 05/08/20 05:38 05/08/20 07:20 POC Whole Blood Glucose 74 MG/DL (74-106) White Blood Count 11.6 K/UL (4.8-10.8) H Red Blood Count 3.62 M/UL (4.20-5.40) L Hemoglobin 9.6 G/DL (12.0-16.0) L Hematocrit 32.7 % (37.0-47.0) L Mean Corpuscular Volume 90 FL (80-99) Mean Corpuscular Hemoglobin 26.5 PG (27.0-31.0) L Mean Corpuscular Hemoglobin Concent 29.4 G/DL (32.0-36.0) L Red Cell Distribution Width 17.5 % (11.6-14.8) H Platelet Count 273 K/UL (150-450) Mean Platelet Volume 10.6 FL (6.5-10.1) H Neutrophils (%) (Auto) 81.7 % (45.0-75.0) H Lymphocytes (%) (Auto) 9.6 % (20.0-45.0) L Monocytes (%) (Auto) 6.8 % (1.0-10.0) Eosinophils (%) (Auto) 1.6 % (0.0-3.0) Basophils (%) (Auto) 0.3 % (0.0-2.0) Prothrombin Time 38.0 SEC (9.30-11.50) H Prothromb Time International Ratio 3.8 (0.9-1.1) H Sodium Level 142 MMOL/L (136-145) Potassium Level 3.8 MMOL/L (3.5-5.1) Chloride Level 109 MMOL/L (98-107) H Carbon Dioxide Level 27 MMOL/L (21-32) Anion Gap 6 mmol/L (5-15) Blood Urea Nitrogen 42 mg/dL (7-18) H Creatinine 1.7 MG/DL (0.55-1.30) H Estimat Glomerular Filtration Rate 35.6 mL/min (>60) Glucose Level 92 MG/DL (74-106) # Uric Acid 3.9 MG/DL (2.6-7.2) Calcium Level 9.2 MG/DL (8.5-10.1) Phosphorus Level 3.4 MG/DL (2.5-4.9) Magnesium Level 1.7 MG/DL (1.8-2.4) L Total Bilirubin 0.4 MG/DL (0.2-1.0) Aspartate Amino Transf (AST/SGOT) 38 U/L (15-37) H Alanine Aminotransferase (ALT/SGPT) 39 U/L (12-78) Alkaline Phosphatase 88 U/L (46-116) Total Protein 7.1 G/DL (6.4-8.2) Albumin 2.5 G/DL (3.4-5.0) L Globulin 4.6 g/dL Albumin/Globulin Ratio 0.5 (1.0-2.7) L Microbiology Date/Time Source Procedure Growth Status 05/06/20 04:20 Stool Clostridium difficile Toxin Assay - Final Complete 05/05/20 15:30 Blood Blood Culture - Preliminary NO GROWTH AFTER 48 HOURS Resulted Intake and Output 05/07/20 05/08/20 19:00 07:00 Intake Total 360 ml 250 ml Output Total 800 ml 1000 ml Balance -440 ml -750 ml Intake Oral 360 ml 250 ml Output Urine Total 800 ml 1000 ml # Bowel Movements 1 1 Objective Objective General: No acute distress, awake and alert HEENT: NCAT, sclera anicteric, PERRL, EOMI. Neck: Supple, no significant jugular venous distention, Lungs: fair inspiratory effort, decreased air at the bases, no Wheeze or Rales. Heart: Regular rate and rhythm, normal S1/S2, no murmurs/ Abdomen: soft, nontender, nondistended. Normoactive bowel sounds, morbid obesity. / Rectal: Refused and deferred. Extremities: No Cyanosis or clubbing, decreased edema bilateral lower extremities. Neuro: A&O x 3, Able to move all extremities Skin: warm, no rashes or lesions Psych: Normal mood and affect Assessment/Plan Assessment/Plan Assessment/Plan Assessment/Plan 1. Acute hypoxemic respiratory failure. 2. COVID-19 pneumonia. 3. Acute renal failure on chronic renal insufficiency. 4. E. Coli Sepsis / Bacteremia. 5. Acute E. Coli urinary tract infection. 6. Morbid obesity. 7. Chronic atrial fibrillation with rapid ventricular rate. 8. Diabetes type 2. 9. Coronary artery disease with prior history of myocardial infarction. 10. Non-ST elevation myocardial infarction, most likely secondary to demand ischemia. 11. Anemia of chronic kidney disease. 12. History of DVT of lower extremity. 13. Chronic Congestive heart failure with reduced ejection fraction. 14. Hypertension. 15. Chronic lymphedema of lower extremity. PLAN: Telemetry Antibiotic: Day #9/10 Rocephin IV, Decadron IV. Dr. Keiry Amezquita=Infectious Disease. Dr. Brownlee = Pulmonary and Critical Care Dr. Pantera Wallace = Nephrology. Code status: Full Code. DVT prophylaxis: Coumadin follow-up with cultures and laboratory in the morning. CODE STATUS: Full code. Discharge planning: [facility] Johny Blankenship MD May 08, 2020 14:37
--- NOTE | 2020-05-08 15:06 | Cardiology Progress Note ---
Assessment/Plan Problem List: (1) 2019 novel coronavirus disease (COVID-19) (2) Diabetes mellitus (3) Peripheral edema (4) Morbid obesity (5) Chronic atrial fibrillation (6) Hypertension Status: progressing Status Narrative COVID 19 pneumonia - improving HTN - stable Permanent AF- controlled ventricular rates. hx of bradycardia w/ clonidine and metoprolol Assessment/Plan Continue metoprolol for rate control in AF Hold warfarin, as inr > therapeutic goal. Repeat inr in am. Monitor for any s/sx bleeding. Continue management for COVID 19 pneumonia per primary team Subjective ROS Limited/Unobtainable: No Subjective Cardiology for Dr. Barker Pt alert, without c/o pain, dyspnea Objective Last 24 Hour Vital Signs Date Time Temp Pulse Resp B/P (MAP) Pulse Ox O2 Delivery O2 Flow Rate FiO2 05/08/20 12:00 97.8 82 20 144/79 (100) 97 05/08/20 12:00 84 05/08/20 09:00 Room Air 05/08/20 08:48 68 145/93 05/08/20 08:47 68 142/93 05/08/20 08:47 142/93 05/08/20 08:00 58 05/08/20 08:00 98.7 84 22 148/93 (111) 96 05/08/20 04:00 99.7 75 20 138/79 (98) 97 05/08/20 04:00 67 05/08/20 00:00 51 05/08/20 00:00 99.8 74 20 136/85 (102) 97 05/07/20 21:43 87 152/89 05/07/20 21:00 Room Air 05/07/20 20:00 76 05/07/20 20:00 98.9 87 20 152/89 (110) 97 05/07/20 17:02 73 135/79 05/07/20 16:00 97.2 73 20 135/79 (97) 97 05/07/20 16:00 74 General Appearance: WD/WN, no apparent distress, obese EENT: PERRL/EOMI Neck: no JVD Rhythm: Afib Cardiovascular: normal rate, irregularly irregular Respiratory/Chest: lungs clear Abdomen: non tender, soft Extremities: moderate edema, other - 2+ edema of L arm ( old iv sites) and bilat distal LE edema 1-2+ Intake and Output 12/31/20 1/1/21 19:00 07:00 Intake Total 360 ml 250 ml Output Total 800 ml 1000 ml Balance -440 ml -750 ml Intake Oral 360 ml 250 ml Output Urine Total 800 ml 1000 ml # Bowel Movements 1 1 Laboratory Tests Test 05/08/20 05:38 05/08/20 07:20 POC Whole Blood Glucose 74 MG/DL (74-106) White Blood Count 11.6 K/UL (4.8-10.8) H Red Blood Count 3.62 M/UL (4.20-5.40) L Hemoglobin 9.6 G/DL (12.0-16.0) L Hematocrit 32.7 % (37.0-47.0) L Mean Corpuscular Volume 90 FL (80-99) Mean Corpuscular Hemoglobin 26.5 PG (27.0-31.0) L Mean Corpuscular Hemoglobin Concent 29.4 G/DL (32.0-36.0) L Red Cell Distribution Width 17.5 % (11.6-14.8) H Platelet Count 273 K/UL (150-450) Mean Platelet Volume 10.6 FL (6.5-10.1) H Neutrophils (%) (Auto) 81.7 % (45.0-75.0) H Lymphocytes (%) (Auto) 9.6 % (20.0-45.0) L Monocytes (%) (Auto) 6.8 % (1.0-10.0) Eosinophils (%) (Auto) 1.6 % (0.0-3.0) Basophils (%) (Auto) 0.3 % (0.0-2.0) Prothrombin Time 38.0 SEC (9.30-11.50) H Prothromb Time International Ratio 3.8 (0.9-1.1) H Sodium Level 142 MMOL/L (136-145) Potassium Level 3.8 MMOL/L (3.5-5.1) Chloride Level 109 MMOL/L (98-107) H Carbon Dioxide Level 27 MMOL/L (21-32) Anion Gap 6 mmol/L (5-15) Blood Urea Nitrogen 42 mg/dL (7-18) H Creatinine 1.7 MG/DL (0.55-1.30) H Estimat Glomerular Filtration Rate 35.6 mL/min (>60) Glucose Level 92 MG/DL (74-106) # Uric Acid 3.9 MG/DL (2.6-7.2) Calcium Level 9.2 MG/DL (8.5-10.1) Phosphorus Level 3.4 MG/DL (2.5-4.9) Magnesium Level 1.7 MG/DL (1.8-2.4) L Total Bilirubin 0.4 MG/DL (0.2-1.0) Aspartate Amino Transf (AST/SGOT) 38 U/L (15-37) H Alanine Aminotransferase (ALT/SGPT) 39 U/L (12-78) Alkaline Phosphatase 88 U/L (46-116) Total Protein 7.1 G/DL (6.4-8.2) Albumin 2.5 G/DL (3.4-5.0) L Globulin 4.6 g/dL Albumin/Globulin Ratio 0.5 (1.0-2.7) L Microbiology Date/Time Source Procedure Growth Status 05/06/20 04:20 Stool Clostridium difficile Toxin Assay - Final Complete 05/05/20 15:30 Blood Blood Culture - Preliminary NO GROWTH AFTER 48 HOURS Resulted Juliet Biswas MD May 08, 2020 15:06
--- NOTE | 2020-05-08 17:13 | Nephrology Progress Note ---
Assessment/Plan Problem List: (1) Renal failure (ARF), acute on chronic (2) Acute respiratory failure (3) Atrial fibrillation, rapid (4) Morbid obesity (5) Diabetes mellitus (6) NSTEMI (non-ST elevated myocardial infarction) Assessment 74-year-old female presents with acute respiratory failure she is morbidly obese Acute renal failure Underlying chronic kidney disease Chronic atrial fibrillation Diabetes mellitus/nephropathy History of DVT Sepsis Non-STEMI [place] Morbid obesity Anemia Plan May 08: Renal parameters continue to improve. Mild leukocytosis persists. Low magnesium addressed. Continue per consultants. May 07: Labs reviewed. Renal parameters improving. Leukocytosis improved. Continue per consultants. Per orders May 06: Today's chemistry panel still pending. Continue to monitor renal parameters. Medication list reviewed. Continue per consultants. May 05: No labs drawn today. Will check renal parameters and chemistries tomorrow. Continue per consultants May 04: Labs reviewed. Serum creatinine appears to be baseline. Levemir dose is increased. Continue to monitor renal parameters and electrolytes. Continue per consultants. May 03: Labs reviewed. Renal parameters improving. Blood sugar better controlled. Will increase Levemir dose. Vitamin D level pending. Continue per consultants. May 02: Serum creatinine lowering. Levemir insulin added for high blood sugar. Norvasc added for better blood pressure control. Continue per consultants. May 01: Serum creatinine 3. INR elevated. Hemoglobin lower. Continue normal saline 75 cc an hour. Starting Starlix for blood sugar control. Kidney ultrasound and 2D echocardiogram results noted. Per orders. Potassium supplement given. Continue to monitor renal parameters and electrolytes. April 30: We will start on renal diet medium carbs. Increase IV fluid to 100 cc an hour. 2D echocardiogram and kidney ultrasound pending. Continue to monitor renal parameters. Avoid nephrotoxic's. Keep the blood pressure and blood sugar in check. Previously: Anne catheter Urine studies Monitor electrolytes Kidney ultrasound Avoid nephrotoxic's 2D echocardiogram Albumin bolus Per orders Subjective ROS Limited/Unobtainable: No Constitutional: Reports: malaise, weakness Objective Objective Last 24 Hour Vital Signs Date Time Temp Pulse Resp B/P (MAP) Pulse Ox O2 Delivery O2 Flow Rate FiO2 05/08/20 17:01 65 139/89 05/08/20 12:00 97.8 82 20 144/79 (100) 97 05/08/20 12:00 84 05/08/20 09:00 Room Air 05/08/20 08:48 68 145/93 05/08/20 08:47 68 142/93 05/08/20 08:47 142/93 05/08/20 08:00 58 05/08/20 08:00 98.7 84 22 148/93 (111) 96 05/08/20 04:00 99.7 75 20 138/79 (98) 97 05/08/20 04:00 67 05/08/20 00:00 51 05/08/20 00:00 99.8 74 20 136/85 (102) 97 05/07/20 21:43 87 152/89 05/07/20 21:00 Room Air 05/07/20 20:00 76 05/07/20 20:00 98.9 87 20 152/89 (110) 97 Intake and Output 05/07/20 05/08/20 19:00 07:00 Intake Total 360 ml 250 ml Output Total 800 ml 1000 ml Balance -440 ml -750 ml Intake Oral 360 ml 250 ml Output Urine Total 800 ml 1000 ml # Bowel Movements 1 1 Laboratory Tests 05/08/20 05:38: POC Whole Blood Glucose 74 05/08/20 07:20: White Blood Count 11.6H, Red Blood Count 3.62L, Hemoglobin 9.6L, Hematocrit 32.7L, Mean Corpuscular Volume 90, Mean Corpuscular Hemoglobin 26.5L, Mean Corpuscular Hemoglobin Concent 29.4L, Red Cell Distribution Width 17.5H, Platelet Count 273, Mean Platelet Volume 10.6H, Neutrophils (%) (Auto) 81.7H, Lymphocytes (%) (Auto) 9.6L, Monocytes (%) (Auto) 6.8, Eosinophils (%) (Auto) 1.6, Basophils (%) (Auto) 0.3, Prothrombin Time 38.0H, Prothromb Time International Ratio 3.8H, Sodium Level 142, Potassium Level 3.8, Chloride Level 109H, Carbon Dioxide Level 27, Anion Gap 6, Blood Urea Nitrogen 42H, Creatinine 1.7H, Estimat Glomerular Filtration Rate 35.6, Glucose Level 92#, Uric Acid 3.9, Calcium Level 9.2, Phosphorus Level 3.4, Magnesium Level 1.7L, Total Bilirubin 0.4, Aspartate Amino Transf (AST/SGOT) 38H, Alanine Aminotransferase (ALT/SGPT) 39, Alkaline Phosphatase 88, Total Protein 7.1, Albumin 2.5L, Globulin 4.6, Albumin/Globulin Ratio 0.5L Height (Feet): 5 Height (Inches): 6.00 Weight (Pounds): 350 General Appearance: no apparent distress, lethargic Cardiovascular: normal rate Respiratory/Chest: decreased breath sounds Abdomen: distended Pantera Wallace MD May 08, 2020 17:13
[2020-05-08] MEDS: cefTRIAXone 2 GM in D5W 55 ML IVPB SCH (20:20)
[2020-05-09] VITALS: BP 148/84
[2020-05-09 04:00] VITALS: BP 133/60
[2020-05-09] MEDS: NovoLOG Insulin Flexpen SUBQ SCH ×4 (06:30→21:00)
[2020-05-09 07:03] LABS: BASOPHILS % (AUTO) 0.9 % (0.0-2.0); EOSINOPHILS % (AUTO) 1.7 % (0.0-3.0); HEMATOCRIT 30.2 % (37.0-47.0); HEMOGLOBIN 9.3 G/DL (12.0-16.0); LYMPHOCYTES % (AUTO) 12.5 % (20.0-45.0); MEAN CORPUSCULAR VOLUME 89 FL (80-99); MONOCYTES % (AUTO) 5.8 % (1.0-10.0); NEUTROPHILS % (AUTO) 79.2 % (45.0-75.0); PLATELET COUNT 248 K/UL (150-450); RED BLOOD COUNT 3.41 M/UL (4.20-5.40); RED CELL DISTRIBUTION WIDTH 17.2 % (11.6-14.8); WHITE BLOOD COUNT 10.1 K/UL (4.8-10.8)
[2020-05-09 07:12] LABS: INR 4.2 (0.9-1.1)
[2020-05-09 07:28] LABS: CALCIUM 9.1 MG/DL (8.5-10.1); CREATININE 1.7 MG/DL (0.55-1.30); POTASSIUM 3.8 MMOL/L (3.5-5.1)
[2020-05-09 07:32] LABS: ALANINE AMINOTRANSFERASE 36 U/L (12-78); ALBUMIN 2.4 G/DL (3.4-5.0); ALKALINE PHOSPHATASE 88 U/L (46-116); ASPARTATE AMINO TRANSFERASE 34 U/L (15-37); BILIRUBIN,DIRECT 0.3 MG/DL (0.0-0.3); BILIRUBIN,TOTAL 0.4 MG/DL (0.2-1.0); PHOSPHORUS 3.4 MG/DL (2.5-4.9)
[2020-05-09 08:00] VITALS: BP 138/84
[2020-05-09] MEDS: Levemir Flexpen SUBQ SCH ×2 (09:00→21:00)
--- NOTE | 2020-05-09 09:06 | Diagnostic Imaging Report ---
EXAM: XR Abdomen, 2 Views CLINICAL HISTORY: F/U TECHNIQUE: Frontal view of the abdomen/pelvis with upright view of the abdomen. COMPARISON: CT chest abdomen pelvis October 22, 2019. FINDINGS/IMPRESSION: Nonobstructed bowel gas pattern. No large volume free air. No significant fecal retention. The lung bases are clear. Gastric bypass suture line noted within the epigastric region.
[2020-05-09] MEDS: Metoprolol Tartrate 12.5mg TAB ORAL SCH ×2 (10:18→21:27)
[2020-05-09] MEDS: Imdur 30mg tab ORAL SCH (10:18)
[2020-05-09] MEDS: Aspirin Baby 81mg ORAL SCH (10:18)
[2020-05-09] MEDS ORDERED: NORVASC5 MG ORAL (10:26)
[2020-05-09] MEDS ORDERED: LOPRESSOR25 M1 ORAL (10:26)
--- NOTE | 2020-05-09 10:29 | Pulmonology Progress Note ---
Subjective ROS Limited/Unobtainable: No Interval Events: doing better Allergies: Coded Allergies: CODEINE (Verified Allergy, Unknown, 10/10/19) Subjective on RA, afebrile, denies chest pain, SOB in isolation no signs of resp distress on abx for bacteremia, today last day Objective Last 24 Hour Vital Signs Date Time Temp Pulse Resp B/P (MAP) Pulse Ox O2 Delivery O2 Flow Rate FiO2 05/09/20 08:00 96.8 88 18 138/84 (102) 100 05/09/20 04:00 60 05/09/20 04:00 98.5 61 19 133/60 (84) 100 05/09/20 00:00 99.6 86 20 148/84 (105) 100 05/09/20 00:00 48 05/08/20 21:00 Room Air 05/08/20 20:20 87 134/65 05/08/20 20:00 80 05/08/20 20:00 98.1 87 20 134/65 (88) 100 05/08/20 17:01 65 139/89 05/08/20 16:00 58 05/08/20 16:00 97.7 65 22 139/81 (100) 96 05/08/20 12:00 97.8 82 20 144/79 (100) 97 05/08/20 12:00 84 Intake and Output 05/08/20 05/09/20 19:00 07:00 Intake Total 360 ml 200 ml Output Total 600 ml 1000 ml Balance -240 ml -800 ml Intake Oral 360 ml 200 ml Output Urine Total 600 ml 1000 ml General Appearance: WD/WN - morbidly obese very pleasant AA female in NAD HEENT: normocephalic, atraumatic, anicteric, mucous membranes moist Respiratory: chest wall non-tender, lungs clear, no respiratory distress, no accessory muscle use Cardiovascular: normal peripheral pulses, normal rate, other - A fib Abdomen: normal bowel sounds, soft, non tender - obese Extremities: other - chronic lymphedema 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 grossly normal, alert, oriented x 3, responsive Musculoskeletal: normal muscle bulk Laboratory Tests 05/08/20 20:31: POC Whole Blood Glucose [Pending] 05/09/20 06:10: White Blood Count 10.1, Red Blood Count 3.41L, Hemoglobin 9.3L, Hematocrit 30.2L , Mean Corpuscular Volume 89, Mean Corpuscular Hemoglobin 27.3, Mean Corpuscular Hemoglobin Concent 30.8L, Red Cell Distribution Width 17.2H, Platelet Count 248, Mean Platelet Volume 10.0, Neutrophils (%) (Auto) 79.2H, Lymphocytes (%) (Auto) 12.5L, Monocytes (%) (Auto) 5.8, Eosinophils (%) (Auto) 1.7, Basophils (%) (Auto) 0.9, Prothrombin Time 41.1H, Prothromb Time International Ratio 4.2H, Sodium Level 140, Potassium Level 3.8, Chloride Level 108H, Carbon Dioxide Level 26, Anion Gap 6, Blood Urea Nitrogen 33H, Creatinine 1.7H, Estimat Glomerular Filtration Rate 35.6, Glucose Level 102, Calcium Level 9.1, Phosphorus Level 3.4, Magnesium Level 1.9, Total Bilirubin 0.4, Direct Bilirubin 0.3, Aspartate Amino Transf (AST/SGOT) 34, Alanine Aminotransferase (ALT/SGPT) 36, Alkaline Phosphatase 88, Total Protein 6.2L, Albumin 2.4L Current Medications Medications (Trade) Dose Ordered Sig/Adria Route PRN Reason Start Time Stop Time Status Last Admin Dose Admin Acetaminophen (Tylenol) 650 mg Q4H PRN ORAL Temp >100.5 04/29/20 14:00 05/29/20 13:59 05/05/20 11:43 Albuterol/ Ipratropium (Combivent Respimat) 1 puff Q4H PRN INH Shortness of Breath 04/29/20 14:00 05/29/20 13:59 Amlodipine Besylate (Norvasc) 5 mg BID ORAL 05/04/20 18:00 06/02/20 08:59 05/08/20 17:01 Aspirin (ASA) 81 mg DAILY ORAL 05/01/20 09:00 06/15/20 08:59 05/08/20 08:45 Ceftriaxone Sodium 2 gm/ Dextrose 55 ml @ 110 mls/hr Q24H IVPB 05/01/20 21:00 05/09/20 23:59 05/08/20 20:20 Dextrose (Dextrose 50%) 25 ml Q30M PRN IV Hypoglycemia 05/01/20 15:30 07/30/20 15:29 Dextrose (Dextrose 50%) 50 ml Q30M PRN IV Hypoglycemia 05/01/20 15:30 07/30/20 15:29 Insulin Aspart (NovoLOG) BEFORE MEALS AND HS SUBQ 05/01/20 16:30 07/30/20 16:29 05/08/20 20:49 Insulin Detemir (Levemir) 20 units Q12HR SUBQ 05/04/20 21:00 07/31/20 13:29 05/07/20 21:46 Isosorbide Mononitrate (Imdur) 30 mg DAILY ORAL 05/01/20 09:00 05/31/20 08:59 05/08/20 08:47 Lorazepam (Ativan 2mg/ml 1ml) 2 mg Q2H PRN IV For Anxiety 05/05/20 08:30 05/12/20 08:29 Metoprolol Tartrate (Lopressor) 12.5 mg Q12HR ORAL 05/07/20 21:00 08/05/20 20:59 05/08/20 20:20 Metoprolol Tartrate 2.5 mg/ Dextrose 57.5 ml @ 115 mls/hr Q4H PRN IVPB HR >118 05/04/20 21:00 06/03/20 20:59 05/05/20 13:11 Nateglinide (Starlix) 120 mg TIAC ORAL 05/01/20 16:30 05/31/20 16:29 05/08/20 16:45 Nitroglycerin (Ntg) 0.4 mg Q5MIN X 3 DOSES PRN SL CHEST PAIN 04/30/20 22:45 05/30/20 22:44 Ondansetron HCl (Zofran) 4 mg Q6H PRN IVP Nausea & Vomiting 04/29/20 14:00 05/29/20 13:59 Pantoprazole (Protonix) 40 mg EVERY 12 HOURS ORAL 05/01/20 21:00 05/31/20 20:59 05/08/20 20:20 Warfarin Sodium (Coumadin per pharmacy) 1 ea DAILY PRN MISC Per rx protocol 04/30/20 22:45 05/30/20 22:44 Assessment/Plan Assessment/Plan ASSESSMENT Covid PNA Acute hypoxemic respiratory failure ( initially, requiring NRM) -resolved Sepsis with bacteremia E. coli bacteremia due to UTI E. coli UTI Acute renal failure on chronic kidney disease Chronic atrial fibrillation Chronic anticoagulation Coagulopathy NSTEMI most likely secondary to demand ischemia Chronic diastolic CHF with pEF Chronic lymphedema lower extremity Hypertension Diabetes mellitus Morbid obesity PLAN OF CARE tele isolation Date of sx onset: unknown Positive test: 04/29 rapid COVID 19 + O2 RA HFA s/p Dex x 6 days ( 04/30-05/05), given RA not a candidate fro REM given renal function DVT PPX: Lovenox D dimer -0.75 Trend CRP 21.6-> 15 Abx per ID recs completing 05/09/20 - today Monitor volumes and renal function Fup with consultants recs FC abx for UTI/bacteremia as per ID, 05/09/20 last day -Ceftriaxone repeated BCX 05/05 NGTD stool C dif NGT creat down to 1.7 LG resolved renal US NGT troponin trended down to nearly normal ECHO with pEF 65%, severely elevated LA pressure grade 3, mild pulmonary hypertension a/PLT with ASA, BB and nitrite cardio follows remains in A fib , rate controlled Coumadin on hold given persistent coagulopathy, per pharmacy dosing, s/p vit K x 1 ; INR 4/2 this am BP management with BB and CCB BS management with LA Levemir and SSI as needed diabetic diet and diabetic teaching supportive care dc today to SNF, Coumadin on hold, since INR 4.2 case discussed and evaluated by supervising physician Edilma Atkins NP May 09, 2020 10:29 Darwin Taylor MD May 09, 2020 19:42
[2020-05-09 12:00] VITALS: BP 122/80
--- NOTE | 2020-05-09 14:14 | Internal Med Progress Note ---
Subjective Date of Service: May 09, 2020 Physician Name Johny Blankenship Attending Physician Aleksandr Vega MD Current Medications Medications (Trade) Dose Ordered Sig/Adria Route PRN Reason Start Time Stop Time Status Last Admin Dose Admin Acetaminophen (Tylenol) 650 mg Q4H PRN ORAL Temp >100.5 04/29/20 14:00 05/29/20 13:59 05/05/20 11:43 Albuterol/ Ipratropium (Combivent Respimat) 1 puff Q4H PRN INH Shortness of Breath 04/29/20 14:00 05/29/20 13:59 Amlodipine Besylate (Norvasc) 5 mg BID ORAL 05/04/20 18:00 06/02/20 08:59 05/09/20 10:18 Aspirin (ASA) 81 mg DAILY ORAL 05/01/20 09:00 06/15/20 08:59 05/09/20 10:18 Ceftriaxone Sodium 2 gm/ Dextrose 55 ml @ 110 mls/hr Q24H IVPB 05/01/20 21:00 05/09/20 23:59 05/08/20 20:20 Dextrose (Dextrose 50%) 25 ml Q30M PRN IV Hypoglycemia 05/01/20 15:30 07/30/20 15:29 Dextrose (Dextrose 50%) 50 ml Q30M PRN IV Hypoglycemia 05/01/20 15:30 07/30/20 15:29 Insulin Aspart (NovoLOG) BEFORE MEALS AND HS SUBQ 05/01/20 16:30 07/30/20 16:29 05/09/20 11:39 Insulin Detemir (Levemir) 20 units Q12HR SUBQ 05/04/20 21:00 07/31/20 13:29 05/07/20 21:46 Isosorbide Mononitrate (Imdur) 30 mg DAILY ORAL 05/01/20 09:00 05/31/20 08:59 05/09/20 10:18 Lorazepam (Ativan 2mg/ml 1ml) 2 mg Q2H PRN IV For Anxiety 05/05/20 08:30 05/12/20 08:29 Metoprolol Tartrate (Lopressor) 12.5 mg Q12HR ORAL 05/07/20 21:00 08/05/20 20:59 05/09/20 10:18 Metoprolol Tartrate 2.5 mg/ Dextrose 57.5 ml @ 115 mls/hr Q4H PRN IVPB HR >118 05/04/20 21:00 06/03/20 20:59 05/05/20 13:11 Nateglinide (Starlix) 120 mg TIAC ORAL 05/01/20 16:30 05/31/20 16:29 05/09/20 11:40 Nitroglycerin (Ntg) 0.4 mg Q5MIN X 3 DOSES PRN SL CHEST PAIN 04/30/20 22:45 05/30/20 22:44 Ondansetron HCl (Zofran) 4 mg Q6H PRN IVP Nausea & Vomiting 04/29/20 14:00 05/29/20 13:59 Pantoprazole (Protonix) 40 mg EVERY 12 HOURS ORAL 05/01/20 21:00 05/31/20 20:59 05/09/20 10:18 Warfarin Sodium (Coumadin per pharmacy) 1 ea DAILY PRN MISC Per rx protocol 04/30/20 22:45 05/30/20 22:44 Allergies: Coded Allergies: CODEINE (Verified Allergy, Unknown, 10/10/19) ROS Limited/Unobtainable: Yes Subjective 74 YO F admitted with shortness of breath. Now COVID 19, sepsis, UTI and pne umonia. Cover for Int Med-Tele Objective Last Vital Signs Date Time Temp Pulse Resp B/P (MAP) Pulse Ox O2 Delivery O2 Flow Rate FiO2 05/09/20 12:00 79 05/09/20 12:00 97.7 20 122/80 (94) 97 05/09/20 09:00 Room Air 05/02/20 21:00 2.0 Laboratory Tests Test 05/08/20 20:31 05/09/20 06:10 POC Whole Blood Glucose Pending White Blood Count 10.1 K/UL (4.8-10.8) Red Blood Count 3.41 M/UL (4.20-5.40) L Hemoglobin 9.3 G/DL (12.0-16.0) L Hematocrit 30.2 % (37.0-47.0) L Mean Corpuscular Volume 89 FL (80-99) Mean Corpuscular Hemoglobin 27.3 PG (27.0-31.0) Mean Corpuscular Hemoglobin Concent 30.8 G/DL (32.0-36.0) L Red Cell Distribution Width 17.2 % (11.6-14.8) H Platelet Count 248 K/UL (150-450) Mean Platelet Volume 10.0 FL (6.5-10.1) Neutrophils (%) (Auto) 79.2 % (45.0-75.0) H Lymphocytes (%) (Auto) 12.5 % (20.0-45.0) L Monocytes (%) (Auto) 5.8 % (1.0-10.0) Eosinophils (%) (Auto) 1.7 % (0.0-3.0) Basophils (%) (Auto) 0.9 % (0.0-2.0) Prothrombin Time 41.1 SEC (9.30-11.50) H Prothromb Time International Ratio 4.2 (0.9-1.1) H Sodium Level 140 MMOL/L (136-145) Potassium Level 3.8 MMOL/L (3.5-5.1) Chloride Level 108 MMOL/L (98-107) H Carbon Dioxide Level 26 MMOL/L (21-32) Anion Gap 6 mmol/L (5-15) Blood Urea Nitrogen 33 mg/dL (7-18) H Creatinine 1.7 MG/DL (0.55-1.30) H Estimat Glomerular Filtration Rate 35.6 mL/min (>60) Glucose Level 102 MG/DL (74-106) Calcium Level 9.1 MG/DL (8.5-10.1) Phosphorus Level 3.4 MG/DL (2.5-4.9) Magnesium Level 1.9 MG/DL (1.8-2.4) Total Bilirubin 0.4 MG/DL (0.2-1.0) Direct Bilirubin 0.3 MG/DL (0.0-0.3) Aspartate Amino Transf (AST/SGOT) 34 U/L (15-37) Alanine Aminotransferase (ALT/SGPT) 36 U/L (12-78) Alkaline Phosphatase 88 U/L (46-116) Total Protein 6.2 G/DL (6.4-8.2) L Albumin 2.4 G/DL (3.4-5.0) L Intake and Output 05/08/20 05/09/20 19:00 07:00 Intake Total 360 ml 200 ml Output Total 600 ml 1000 ml Balance -240 ml -800 ml Intake Oral 360 ml 200 ml Output Urine Total 600 ml 1000 ml Objective Objective General: No acute distress, awake and alert HEENT: NCAT, sclera anicteric, PERRL, EOMI. Neck: Supple, no significant jugular venous distention, Lungs: fair inspiratory effort, decreased air at the bases, no Wheeze or Rales. Heart: Regular rate and rhythm, normal S1/S2, no murmurs/ Abdomen: soft, nontender, nondistended. Normoactive bowel sounds, morbid obesity. / Rectal: Refused and deferred. Extremities: No Cyanosis or clubbing, decreased edema bilateral lower extremities. Neuro: A&O x 3, Able to move all extremities Skin: warm, no rashes or lesions Psych: Normal mood and affect Assessment/Plan Assessment/Plan Assessment/Plan Assessment/Plan 1. Acute hypoxemic respiratory failure. 2. COVID-19 pneumonia. 3. Acute renal failure on chronic renal insufficiency. 4. E. Coli Sepsis / Bacteremia. 5. Acute E. Coli urinary tract infection. 6. Morbid obesity. 7. Chronic atrial fibrillation with rapid ventricular rate. 8. Diabetes type 2. 9. Coronary artery disease with prior history of myocardial infarction. 10. Non-ST elevation myocardial infarction, most likely secondary to demand ischemia. 11. Anemia of chronic kidney disease. 12. History of DVT of lower extremity. 13. Chronic Congestive heart failure with reduced ejection fraction. 14. Hypertension. 15. Chronic lymphedema of lower extremity. PLAN: Telemetry Antibiotic: Day #10/ Rocephin IV, Decadron IV. Dr. Keiry Amezquita=Infectious Disease. Dr. Brownlee = Pulmonary and Critical Care Dr. Pantera Wallace = Nephrology. Code status: Full Code. DVT prophylaxis: Coumadin follow-up with cultures and laboratory in the morning. CODE STATUS: Full code. Discharge planning: [facility] Johny José MD May 09, 2020 14:14
--- NOTE | 2020-05-09 15:19 | Nephrology Progress Note ---
Assessment/Plan Problem List: (1) Renal failure (ARF), acute on chronic (2) Acute respiratory failure (3) Atrial fibrillation, rapid (4) Morbid obesity (5) Diabetes mellitus (6) NSTEMI (non-ST elevated myocardial infarction) Assessment 74-year-old female presents with acute respiratory failure she is morbidly obese Acute renal failure Underlying chronic kidney disease Chronic atrial fibrillation Diabetes mellitus/nephropathy History of DVT Sepsis Non-STEMI [place] Morbid obesity Anemia Plan May 09: Labs reviewed. Serum creatinine 1.7 stable. Stable from renal standpoint of view. Continue per consultants. May 08: Renal parameters continue to improve. Mild leukocytosis persists. Low magnesium addressed. Continue per consultants. May 07: Labs reviewed. Renal parameters improving. Leukocytosis improved. Continue per consultants. Per orders May 06: Today's chemistry panel still pending. Continue to monitor renal parameters. Medication list reviewed. Continue per consultants. May 05: No labs drawn today. Will check renal parameters and chemistries tomorrow. Continue per consultants May 04: Labs reviewed. Serum creatinine appears to be baseline. Levemir dose is increased. Continue to monitor renal parameters and electrolytes. Continue per consultants. May 03: Labs reviewed. Renal parameters improving. Blood sugar better controlled. Will increase Levemir dose. Vitamin D level pending. Continue per consultants. May 02: Serum creatinine lowering. Levemir insulin added for high blood sugar. Norvasc added for better blood pressure control. Continue per consultants. May 01: Serum creatinine 3. INR elevated. Hemoglobin lower. Continue normal saline 75 cc an hour. Starting Starlix for blood sugar control. Kidney ultrasound and 2D echocardiogram results noted. Per orders. Potassium supplement given. Continue to monitor renal parameters and electrolytes. April 30: We will start on renal diet medium carbs. Increase IV fluid to 100 cc an hour. 2D echocardiogram and kidney ultrasound pending. Continue to monitor renal parameters. Avoid nephrotoxic's. Keep the blood pressure and blood sugar in check. Previously: Anne catheter Urine studies Monitor electrolytes Kidney ultrasound Avoid nephrotoxic's 2D echocardiogram Albumin bolus Per orders Subjective ROS Limited/Unobtainable: No Constitutional: Reports: malaise Objective Objective Last 24 Hour Vital Signs Date Time Temp Pulse Resp B/P (MAP) Pulse Ox O2 Delivery O2 Flow Rate FiO2 05/09/20 12:00 79 05/09/20 12:00 97.7 80 20 122/80 (94) 97 05/09/20 10:18 88 138/84 05/09/20 10:18 88 138/84 05/09/20 10:18 138/84 05/09/20 09:00 Room Air 05/09/20 08:00 96.8 88 18 138/84 (102) 100 05/09/20 08:00 64 05/09/20 04:00 60 05/09/20 04:00 98.5 61 19 133/60 (84) 100 05/09/20 00:00 99.6 86 20 148/84 (105) 100 05/09/20 00:00 48 05/08/20 21:00 Room Air 05/08/20 20:20 87 134/65 05/08/20 20:00 80 05/08/20 20:00 98.1 87 20 134/65 (88) 100 05/08/20 17:01 65 139/89 05/08/20 16:00 58 05/08/20 16:00 97.7 65 22 139/81 (100) 96 Intake and Output 05/08/20 05/09/20 18:59 06:59 Intake Total 360 ml 200 ml Output Total 600 ml 1000 ml Balance -240 ml -800 ml Intake Oral 360 ml 200 ml Output Urine Total 600 ml 1000 ml Current Medications Medications (Trade) Dose Ordered Sig/Adria Route PRN Reason Start Time Stop Time Status Last Admin Dose Admin Acetaminophen (Tylenol) 650 mg Q4H PRN ORAL Temp >100.5 04/29/20 14:00 05/29/20 13:59 05/05/20 11:43 Albuterol/ Ipratropium (Combivent Respimat) 1 puff Q4H PRN INH Shortness of Breath 04/29/20 14:00 05/29/20 13:59 Amlodipine Besylate (Norvasc) 5 mg BID ORAL 05/04/20 18:00 06/02/20 08:59 05/09/20 10:18 Aspirin (ASA) 81 mg DAILY ORAL 05/01/20 09:00 06/15/20 08:59 05/09/20 10:18 Ceftriaxone Sodium 2 gm/ Dextrose 55 ml @ 110 mls/hr Q24H IVPB 05/01/20 21:00 05/09/20 23:59 1/1/21 20:20 Dextrose (Dextrose 50%) 25 ml Q30M PRN IV Hypoglycemia 05/01/20 15:30 07/30/20 15:29 Dextrose (Dextrose 50%) 50 ml Q30M PRN IV Hypoglycemia 05/01/20 15:30 07/30/20 15:29 Insulin Aspart (NovoLOG) BEFORE MEALS AND HS SUBQ 05/01/20 16:30 07/30/20 16:29 05/09/20 11:39 Insulin Detemir (Levemir) 20 units Q12HR SUBQ 05/04/20 21:00 07/31/20 13:29 05/07/20 21:46 Isosorbide Mononitrate (Imdur) 30 mg DAILY ORAL 05/01/20 09:00 05/31/20 08:59 05/09/20 10:18 Lorazepam (Ativan 2mg/ml 1ml) 2 mg Q2H PRN IV For Anxiety 05/05/20 08:30 05/12/20 08:29 Metoprolol Tartrate (Lopressor) 12.5 mg Q12HR ORAL 05/07/20 21:00 08/05/20 20:59 05/09/20 10:18 Metoprolol Tartrate 2.5 mg/ Dextrose 57.5 ml @ 115 mls/hr Q4H PRN IVPB HR >118 05/04/20 21:00 06/03/20 20:59 05/05/20 13:11 Nateglinide (Starlix) 120 mg TIAC ORAL 05/01/20 16:30 05/31/20 16:29 05/09/20 11:40 Nitroglycerin (Ntg) 0.4 mg Q5MIN X 3 DOSES PRN SL CHEST PAIN 04/30/20 22:45 05/30/20 22:44 Ondansetron HCl (Zofran) 4 mg Q6H PRN IVP Nausea & Vomiting 04/29/20 14:00 05/29/20 13:59 Pantoprazole (Protonix) 40 mg EVERY 12 HOURS ORAL 05/01/20 21:00 05/31/20 20:59 05/09/20 10:18 Warfarin Sodium (Coumadin per pharmacy) 1 ea DAILY PRN MISC Per rx protocol 04/30/20 22:45 05/30/20 22:44 Laboratory Tests 05/08/20 20:31: POC Whole Blood Glucose [Pending] 05/09/20 06:10: White Blood Count 10.1, Red Blood Count 3.41L, Hemoglobin 9.3L, Hematocrit 30.2L , Mean Corpuscular Volume 89, Mean Corpuscular Hemoglobin 27.3, Mean Corpuscular Hemoglobin Concent 30.8L, Red Cell Distribution Width 17.2H, Platelet Count 248, Mean Platelet Volume 10.0, Neutrophils (%) (Auto) 79.2H, Lymphocytes (%) (Auto) 12.5L, Monocytes (%) (Auto) 5.8, Eosinophils (%) (Auto) 1.7, Basophils (%) (Auto) 0.9, Prothrombin Time 41.1H, Prothromb Time International Ratio 4.2H, Sodium Level 140, Potassium Level 3.8, Chloride Level 108H, Carbon Dioxide Level 26, Anion Gap 6, Blood Urea Nitrogen 33H, Creatinine 1.7H, Estimat Glomerular Filtration Rate 35.6, Glucose Level 102, Calcium Level 9.1, Phosphorus Level 3.4, Magnesium Level 1.9, Total Bilirubin 0.4, Direct Bilirubin 0.3, Aspartate Amino Transf (AST/SGOT) 34, Alanine Aminotransferase (ALT/SGPT) 36, Alkaline Phosphatase 88, Total Protein 6.2L, Albumin 2.4L Height (Feet): 5 Height (Inches): 6.00 Weight (Pounds): 350 General Appearance: no apparent distress Cardiovascular: normal rate Respiratory/Chest: decreased breath sounds Abdomen: soft, distended Pantera Wallace MD May 09, 2020 15:19
--- NOTE | 2020-05-09 15:32 | Cardiology Progress Note ---
Assessment/Plan Problem List: (1) 2019 novel coronavirus disease (COVID-19) (2) Diabetes mellitus (3) Peripheral edema (4) Morbid obesity (5) Chronic atrial fibrillation (6) Hypertension Status: stable, progressing Status Narrative COVID 19 infection. -Covid + on 04/29. E Coli UTI/ bacteremia HTN - stable, controlled w/ meds. Permanent AF- nl. ventricular rates. hx of bradycardia w/ clonidine and metoprolol Assessment/Plan Continue metoprolol for rate control in AF Continue to hold warfarin as inr > 3 Repeat inr in am. Monitor for any s/sx bleeding. u/a + blood Continue management for COVID 19 and e coli uti/bacteremia per primary team Subjective ROS Limited/Unobtainable: No Subjective Cardiology for Dr. Barker Pt is awake/ alert. No new c/o. Objective Last 24 Hour Vital Signs Date Time Temp Pulse Resp B/P (MAP) Pulse Ox O2 Delivery O2 Flow Rate FiO2 05/09/20 12:00 79 05/09/20 12:00 97.7 80 20 122/80 (94) 97 05/09/20 10:18 88 138/84 05/09/20 10:18 88 138/84 05/09/20 10:18 138/84 05/09/20 09:00 Room Air 05/09/20 08:00 96.8 88 18 138/84 (102) 100 05/09/20 08:00 64 05/09/20 04:00 60 05/09/20 04:00 98.5 61 19 133/60 (84) 100 05/09/20 00:00 99.6 86 20 148/84 (105) 100 05/09/20 00:00 48 05/08/20 21:00 Room Air 05/08/20 20:20 87 134/65 05/08/20 20:00 80 05/08/20 20:00 98.1 87 20 134/65 (88) 100 05/08/20 17:01 65 139/89 05/08/20 16:00 58 05/08/20 16:00 97.7 65 22 139/81 (100) 96 General Appearance: WD/WN, no apparent distress, alert, obese EENT: PERRL/EOMI Neck: supple, no JVD Rhythm: Afib Cardiovascular: normal rate, irregularly irregular Respiratory/Chest: lungs clear Abdomen: non tender, soft Extremities: no swelling Intake and Output 05/08/20 05/09/20 18:59 06:59 Intake Total 360 ml 200 ml Output Total 600 ml 1000 ml Balance -240 ml -800 ml Intake Oral 360 ml 200 ml Output Urine Total 600 ml 1000 ml Laboratory Tests Test 05/08/20 20:31 05/09/20 06:10 POC Whole Blood Glucose Pending White Blood Count 10.1 K/UL (4.8-10.8) Red Blood Count 3.41 M/UL (4.20-5.40) L Hemoglobin 9.3 G/DL (12.0-16.0) L Hematocrit 30.2 % (37.0-47.0) L Mean Corpuscular Volume 89 FL (80-99) Mean Corpuscular Hemoglobin 27.3 PG (27.0-31.0) Mean Corpuscular Hemoglobin Concent 30.8 G/DL (32.0-36.0) L Red Cell Distribution Width 17.2 % (11.6-14.8) H Platelet Count 248 K/UL (150-450) Mean Platelet Volume 10.0 FL (6.5-10.1) Neutrophils (%) (Auto) 79.2 % (45.0-75.0) H Lymphocytes (%) (Auto) 12.5 % (20.0-45.0) L Monocytes (%) (Auto) 5.8 % (1.0-10.0) Eosinophils (%) (Auto) 1.7 % (0.0-3.0) Basophils (%) (Auto) 0.9 % (0.0-2.0) Prothrombin Time 41.1 SEC (9.30-11.50) H Prothromb Time International Ratio 4.2 (0.9-1.1) H Sodium Level 140 MMOL/L (136-145) Potassium Level 3.8 MMOL/L (3.5-5.1) Chloride Level 108 MMOL/L (98-107) H Carbon Dioxide Level 26 MMOL/L (21-32) Anion Gap 6 mmol/L (5-15) Blood Urea Nitrogen 33 mg/dL (7-18) H Creatinine 1.7 MG/DL (0.55-1.30) H Estimat Glomerular Filtration Rate 35.6 mL/min (>60) Glucose Level 102 MG/DL (74-106) Calcium Level 9.1 MG/DL (8.5-10.1) Phosphorus Level 3.4 MG/DL (2.5-4.9) Magnesium Level 1.9 MG/DL (1.8-2.4) Total Bilirubin 0.4 MG/DL (0.2-1.0) Direct Bilirubin 0.3 MG/DL (0.0-0.3) Aspartate Amino Transf (AST/SGOT) 34 U/L (15-37) Alanine Aminotransferase (ALT/SGPT) 36 U/L (12-78) Alkaline Phosphatase 88 U/L (46-116) Total Protein 6.2 G/DL (6.4-8.2) L Albumin 2.4 G/DL (3.4-5.0) Juliet Gomez MD May 09, 2020 15:32
--- NOTE | 2020-05-09 15:39 | Surgery Progress Note ---
Surgery Progress Note Subjective Additional Comments leukocytosis resolved labs improved exam stable no n/v meds reviewed Objective Last 24 Hour Vital Signs Date Time Temp Pulse Resp B/P (MAP) Pulse Ox O2 Delivery O2 Flow Rate FiO2 05/09/20 12:00 79 05/09/20 12:00 97.7 80 20 122/80 (94) 97 05/09/20 10:18 88 138/84 05/09/20 10:18 88 138/84 05/09/20 10:18 138/84 05/09/20 09:00 Room Air 05/09/20 08:00 96.8 88 18 138/84 (102) 100 05/09/20 08:00 64 05/09/20 04:00 60 05/09/20 04:00 98.5 61 19 133/60 (84) 100 05/09/20 00:00 99.6 86 20 148/84 (105) 100 05/09/20 00:00 48 05/08/20 21:00 Room Air 05/08/20 20:20 87 134/65 05/08/20 20:00 80 05/08/20 20:00 98.1 87 20 134/65 (88) 100 05/08/20 17:01 65 139/89 05/08/20 16:00 58 05/08/20 16:00 97.7 65 22 139/81 (100) 96 I&O Intake and Output 05/08/20 05/09/20 19:00 07:00 Intake Total 360 ml 200 ml Output Total 600 ml 1000 ml Balance -240 ml -800 ml Intake Oral 360 ml 200 ml Output Urine Total 600 ml 1000 ml Cardiovascular: RSR Respiratory: decreased breath sounds Abdomen: soft, flat, non-tender, present bowel sounds, non-distended Extremities: no edema, no tenderness, no cyanosis Laboratory Tests Test 05/08/20 20:31 05/09/20 06:10 POC Whole Blood Glucose Pending White Blood Count 10.1 K/UL (4.8-10.8) Red Blood Count 3.41 M/UL (4.20-5.40) L Hemoglobin 9.3 G/DL (12.0-16.0) L Hematocrit 30.2 % (37.0-47.0) L Mean Corpuscular Volume 89 FL (80-99) Mean Corpuscular Hemoglobin 27.3 PG (27.0-31.0) Mean Corpuscular Hemoglobin Concent 30.8 G/DL (32.0-36.0) L Red Cell Distribution Width 17.2 % (11.6-14.8) H Platelet Count 248 K/UL (150-450) Mean Platelet Volume 10.0 FL (6.5-10.1) Neutrophils (%) (Auto) 79.2 % (45.0-75.0) H Lymphocytes (%) (Auto) 12.5 % (20.0-45.0) L Monocytes (%) (Auto) 5.8 % (1.0-10.0) Eosinophils (%) (Auto) 1.7 % (0.0-3.0) Basophils (%) (Auto) 0.9 % (0.0-2.0) Prothrombin Time 41.1 SEC (9.30-11.50) H Prothromb Time International Ratio 4.2 (0.9-1.1) H Sodium Level 140 MMOL/L (136-145) Potassium Level 3.8 MMOL/L (3.5-5.1) Chloride Level 108 MMOL/L (98-107) H Carbon Dioxide Level 26 MMOL/L (21-32) Anion Gap 6 mmol/L (5-15) Blood Urea Nitrogen 33 mg/dL (7-18) H Creatinine 1.7 MG/DL (0.55-1.30) H Estimat Glomerular Filtration Rate 35.6 mL/min (>60) Glucose Level 102 MG/DL (74-106) Calcium Level 9.1 MG/DL (8.5-10.1) Phosphorus Level 3.4 MG/DL (2.5-4.9) Magnesium Level 1.9 MG/DL (1.8-2.4) Total Bilirubin 0.4 MG/DL (0.2-1.0) Direct Bilirubin 0.3 MG/DL (0.0-0.3) Aspartate Amino Transf (AST/SGOT) 34 U/L (15-37) Alanine Aminotransferase (ALT/SGPT) 36 U/L (12-78) Alkaline Phosphatase 88 U/L (46-116) Total Protein 6.2 G/DL (6.4-8.2) L Albumin 2.4 G/DL (3.4-5.0) L Plan Problems: (1) Diarrhea Assessment & Plan: 74-year-old female with loose diarrhea C. difficile negative Covid positive. No blood in stool identified. Abdominal exam benign clinically. Denies abdominal pain or discomfort at this time States she is tolerating diet well without concern. Bacteremia and UTI. On antibiotics leukocytosis abnormal labs Diarrhea potentially related to antibiotics. Recommend continuation at this time. Imaging ordered and will be reviewed. meds reviewed and changed Thank you for allowing participate patient's care will follow with recommendations DAILY ESTIMATED NEEDS: Needs based on Mobid obesity, DM, Cardiac/ 74kg abw 20-25 kcals/kg 1797-9266 total kcals 1.25-1.5 g protein/kg 93-111 g total protein 20-25 mL/kg 0767-0700 total fluid mLs NUTRITION DIAGNOSIS: * Morbid obesity R/T life style factors and excessive energy intake INS[employer]OR [employer] as evidenced by BMI >50. * Altered nutrition related lab values R/T ARF, DM w/ steroidal med as evidenced by elev creat (3.2 -> 2.4 trend down), elev BGs (200's and 300's) pt on Decadron. CURRENT DIET:[facility] MED + RENAL PO DIET RECOMMENDATIONS: CCHO LOW, CARDIAC / texture as tolerated ADDITIONAL RECOMMENDATIONS: * Calibrated bedscale wt * Monitor BGs: 200's and 300's, pt on Decadron Monitor need to adjust insulin * Monitor renal fxn and lytes: creat improving at this time Lytes wnl . (2) Hypoxia (3) Acute respiratory failure Assessment & Plan: Stable cardiomegaly. There is worsening aeration with increased interstitial/rash or congestion. No dense consolidation. No significant pleural effusion. No pneumothorax. Osseous structures. No acute abnormal Impression: Worsening aeration suggesting CHF/interstitial edema. Superimposed pneumonia needs to be excluded clinically (4) Atrial fibrillation, rapid (5) Gram-negative bacteremia (6) 2019 novel coronavirus disease (COVID-19) Assessment & Plan: ++ appreciate ID and pulm input (7) Bacteremia due to Gram-negative bacteria Assessment & Plan: on abx potential source of diarrhea cont diet c diff neg (8) Respiratory failure (9) Anasarca (10) Diabetes mellitus (11) Morbid obesity (12) Peripheral edema (13) Chronic atrial fibrillation (14) History of DVT (deep vein thrombosis) (15) Renal failure (ARF), acute on chronic (16) Limited mobility (17) Sepsis (18) NSTEMI (non-ST elevated myocardial infarction) Franco Baeza May 09, 2020 15:39
[2020-05-09 16:00] VITALS: BP 141/73
[2020-05-09 20:00] VITALS: BP 145/74
[2020-05-09] MEDS: cefTRIAXone 2 GM in D5W 55 ML IVPB SCH (21:27)
[2020-05-10] VITALS: BP 147/74
[2020-05-10 04:00] VITALS: BP 141/76
[2020-05-10] MEDS: NovoLOG Insulin Flexpen SUBQ SCH ×4 (06:43→20:54)
[2020-05-10 08:00] VITALS: BP 124/68
[2020-05-10 08:57] LABS: BASOPHILS % (AUTO) 0.8 % (0.0-2.0); EOSINOPHILS % (AUTO) 0.9 % (0.0-3.0); HEMATOCRIT 27.8 % (37.0-47.0); HEMOGLOBIN 8.9 G/DL (12.0-16.0); LYMPHOCYTES % (AUTO) 11.2 % (20.0-45.0); MEAN CORPUSCULAR VOLUME 86 FL (80-99); MONOCYTES % (AUTO) 5.6 % (1.0-10.0); NEUTROPHILS % (AUTO) 81.6 % (45.0-75.0); PLATELET COUNT 240 K/UL (150-450); RED BLOOD COUNT 3.25 M/UL (4.20-5.40); RED CELL DISTRIBUTION WIDTH 19.2 % (11.6-14.8)
[2020-05-10 09:07] LABS: INR 3.4 (0.9-1.1)
[2020-05-10] MEDS: Aspirin Baby 81mg ORAL SCH (09:10)
[2020-05-10] MEDS: Imdur 30mg tab ORAL SCH (09:10)
[2020-05-10] MEDS: Metoprolol Tartrate 12.5mg TAB ORAL SCH ×2 (09:11→20:32)
[2020-05-10 09:17] LABS: CALCIUM 8.8 MG/DL (8.5-10.1); CREATININE 1.7 MG/DL (0.55-1.30); POTASSIUM 3.9 MMOL/L (3.5-5.1)
[2020-05-10] MEDS: Levemir Flexpen SUBQ SCH ×2 (09:21→20:54)
--- NOTE | 2020-05-10 10:10 | Infectious Diseases Prog Note ---
Assessment/Plan 74yo F with: Sepsis E.coli bacteremia 2/2 UTI COVID pna Acute hypoxia 2/2 COVID pna Leukocytosis to 24, improving 04/29 COVID rapid + BCx +E.coli S-CTX UA+, UCx +E.coli S-CTX CXR: No acute process 05/05 BCx NTD UA+, Ucx neg CXR: Worsening aeration suggesting CHF/interstitial edema. Superimposed pneumonia needs to be excluded clinically. C.dif neg LG on CKD, Cr in 3s, increasing >> improved slightly Afib DM Obesity Plan: Monitor off abx OK to d/c from ID standpoint off abx 05/10 SP CTX #10 for E.coli urosepsis 05/05 SP dex #6 given on RA 05/01 SP laisha #2 Not candidate for RDV given CrCl No convalescent plasma available at this institution, and not shown to improve mortality Monitor CBC/CMP Monitor temp curve, hemodynamics Monitor resp status D/w RN Thank you for this consult. [facility] will continue to follow. Subjective Allergies: Coded Allergies: CODEINE (Verified Allergy, Unknown, 10/10/19) AF Doing well on RA NAD WBC 10, improving Objective Last 24 Hour Vital Signs Date Time Temp Pulse Resp B/P (MAP) Pulse Ox O2 Delivery O2 Flow Rate FiO2 05/10/20 09:11 64 124/68 05/10/20 09:11 64 124/68 05/10/20 09:10 124/68 05/10/20 08:00 97.7 64 20 124/68 (86) 97 05/10/20 04:00 79 05/10/20 04:00 97.8 75 18 141/76 (97) 98 05/10/20 00:00 62 05/10/20 00:00 97.8 82 16 147/74 (98) 99 05/09/20 21:27 77 145/74 05/09/20 21:00 Room Air 05/09/20 20:00 68 05/09/20 20:00 98.3 77 17 145/74 (97) 99 05/09/20 17:55 73 141/73 05/09/20 16:00 97.7 73 20 141/73 (95) 97 05/09/20 16:00 71 05/09/20 12:00 79 1/2/21 12:00 97.7 80 20 122/80 (94) 97 05/09/20 10:18 88 138/84 05/09/20 10:18 88 138/84 05/09/20 10:18 138/84 Height (Feet): 5 Height (Inches): 6.00 Weight (Pounds): 350 Gen: NAD HEENT: NCAT Pulm: BL chest rise Abd: Non-distended Ext: No c/c/e Skin: No visible rashes Neuro: Awake Laboratory Tests Test 05/09/20 16:34 05/09/20 21:32 05/10/20 05:55 05/10/20 08:10 POC Whole Blood Glucose 183 MG/DL (74-106) H Pending 163 MG/DL (74-106) H White Blood Count 10.0 K/UL (4.8-10.8) Red Blood Count 3.25 M/UL (4.20-5.40) L Hemoglobin 8.9 G/DL (12.0-16.0) L Hematocrit 27.8 % (37.0-47.0) L Mean Corpuscular Volume 86 FL (80-99) Mean Corpuscular Hemoglobin 27.3 PG (27.0-31.0) Mean Corpuscular Hemoglobin Concent 31.9 G/DL (32.0-36.0) L Red Cell Distribution Width 19.2 % (11.6-14.8) H Platelet Count 240 K/UL (150-450) Mean Platelet Volume 10.2 FL (6.5-10.1) H Neutrophils (%) (Auto) 81.6 % (45.0-75.0) H Lymphocytes (%) (Auto) 11.2 % (20.0-45.0) L Monocytes (%) (Auto) 5.6 % (1.0-10.0) Eosinophils (%) (Auto) 0.9 % (0.0-3.0) Basophils (%) (Auto) 0.8 % (0.0-2.0) Prothrombin Time 33.8 SEC (9.30-11.50) H Prothromb Time International Ratio 3.4 (0.9-1.1) H Sodium Level 142 MMOL/L (136-145) Potassium Level 3.9 MMOL/L (3.5-5.1) Chloride Level 109 MMOL/L (98-107) H Carbon Dioxide Level 28 MMOL/L (21-32) Anion Gap 5 mmol/L (5-15) Blood Urea Nitrogen 29 mg/dL (7-18) H Creatinine 1.7 MG/DL (0.55-1.30) H Estimat Glomerular Filtration Rate 35.6 mL/min (>60) Glucose Level 135 MG/DL (74-106) H Calcium Level 8.8 MG/DL (8.5-10.1) Current Medications Medications (Trade) Dose Ordered Sig/Adria Route PRN Reason Start Time Stop Time Status Last Admin Dose Admin Acetaminophen (Tylenol) 650 mg Q4H PRN ORAL Temp >100.5 04/29/20 14:00 05/29/20 13:59 05/05/20 11:43 Albuterol/ Ipratropium (Combivent Respimat) 1 puff Q4H PRN INH Shortness of Breath 04/29/20 14:00 05/29/20 13:59 Amlodipine Besylate (Norvasc) 5 mg BID ORAL 05/04/20 18:00 06/02/20 08:59 05/10/20 09:11 Aspirin (ASA) 81 mg DAILY ORAL 05/01/20 09:00 06/15/20 08:59 05/10/20 09:10 Dextrose (Dextrose 50%) 25 ml Q30M PRN IV Hypoglycemia 05/01/20 15:30 07/30/20 15:29 Dextrose (Dextrose 50%) 50 ml Q30M PRN IV Hypoglycemia 05/01/20 15:30 07/30/20 15:29 Insulin Aspart (NovoLOG) BEFORE MEALS AND HS SUBQ 05/01/20 16:30 07/30/20 16:29 05/10/20 06:43 Insulin Detemir (Levemir) 20 units Q12HR SUBQ 05/04/20 21:00 07/31/20 13:29 05/10/20 09:21 Isosorbide Mononitrate (Imdur) 30 mg DAILY ORAL 05/01/20 09:00 05/31/20 08:59 05/10/20 09:10 Lorazepam (Ativan 2mg/ml 1ml) 2 mg Q2H PRN IV For Anxiety 05/05/20 08:30 05/12/20 08:29 Metoprolol Tartrate (Lopressor) 12.5 mg Q12HR ORAL 05/07/20 21:00 08/05/20 20:59 05/10/20 09:11 Metoprolol Tartrate 2.5 mg/ Dextrose 57.5 ml @ 115 mls/hr Q4H PRN IVPB HR >118 05/04/20 21:00 06/03/20 20:59 05/05/20 13:11 Nateglinide (Starlix) 120 mg TIAC ORAL 05/01/20 16:30 05/31/20 16:29 05/09/20 16:45 Nitroglycerin (Ntg) 0.4 mg Q5MIN X 3 DOSES PRN SL CHEST PAIN 04/30/20 22:45 05/30/20 22:44 Ondansetron HCl (Zofran) 4 mg Q6H PRN IVP Nausea & Vomiting 04/29/20 14:00 05/29/20 13:59 05/10/20 01:17 Pantoprazole (Protonix) 40 mg EVERY 12 HOURS ORAL 05/01/20 21:00 05/31/20 20:59 05/10/20 09:11 Warfarin Sodium (Coumadin per pharmacy) 1 ea DAILY PRN MISC Per rx protocol 04/30/20 22:45 05/30/20 22:44 Keiry Amezquita M.D. May 10, 2020 10:10
--- NOTE | 2020-05-10 10:24 | Pulmonology Progress Note ---
Subjective ROS Limited/Unobtainable: No Interval Events: doing better Allergies: Coded Allergies: CODEINE (Verified Allergy, Unknown, 10/10/19) Subjective on RA, afebrile, denies chest pain, SOB in isolation no signs of resp distress completed abx treatment 05/09 Objective Last 24 Hour Vital Signs Date Time Temp Pulse Resp B/P (MAP) Pulse Ox O2 Delivery O2 Flow Rate FiO2 05/10/20 09:11 64 124/68 05/10/20 09:11 64 124/68 05/10/20 09:10 124/68 05/10/20 09:00 Room Air 05/10/20 08:00 97.7 64 20 124/68 (86) 97 05/10/20 04:00 79 05/10/20 04:00 97.8 75 18 141/76 (97) 98 05/10/20 00:00 62 05/10/20 00:00 97.8 82 16 147/74 (98) 99 05/09/20 21:27 77 145/74 05/09/20 21:00 Room Air 05/09/20 20:00 68 05/09/20 20:00 98.3 77 17 145/74 (97) 99 05/09/20 17:55 73 141/73 05/09/20 16:00 97.7 73 20 141/73 (95) 97 05/09/20 16:00 71 05/09/20 12:00 79 05/09/20 12:00 97.7 80 20 122/80 (94) 97 Intake and Output 05/09/20 05/10/20 19:00 07:00 Intake Total 596 ml 480 ml Output Total 1600 ml 1200 ml Balance -1004 ml -720 ml Intake Oral 596 ml 480 ml Output Urine Total 1600 ml 1200 ml # Voids 1 1 General Appearance: WD/WN - morbidly obese very pleasant AA female in NAD HEENT: normocephalic, atraumatic, anicteric, mucous membranes moist Respiratory: chest wall non-tender, lungs clear, no respiratory distress, no accessory muscle use Cardiovascular: normal peripheral pulses, normal rate, other - A fib Abdomen: normal bowel sounds, soft, non tender - obese Extremities: other - chronic lymphedema 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, alert, oriented x 3, responsive Musculoskeletal: normal muscle bulk Laboratory Tests 05/09/20 16:34: POC Whole Blood Glucose 183H 05/09/20 21:32: POC Whole Blood Glucose [Pending] 05/10/20 05:55: POC Whole Blood Glucose 163H 05/10/20 08:10: White Blood Count 10.0, Red Blood Count 3.25L, Hemoglobin 8.9L, Hematocrit 27.8L , Mean Corpuscular Volume 86, Mean Corpuscular Hemoglobin 27.3, Mean Corpuscular Hemoglobin Concent 31.9L, Red Cell Distribution Width 19.2H, Platelet Count 240, Mean Platelet Volume 10.2H, Neutrophils (%) (Auto) 81.6H, Lymphocytes (%) (Auto) 11.2L, Monocytes (%) (Auto) 5.6, Eosinophils (%) (Auto) 0.9, Basophils (%) (Auto) 0.8, Prothrombin Time 33.8H, Prothromb Time International Ratio 3.4H, Sodium Level 142, Potassium Level 3.9, Chloride Level 109H, Carbon Dioxide Lev el 28, Anion Gap 5, Blood Urea Nitrogen 29H, Creatinine 1.7H, Estimat Glomerular Filtration Rate 35.6, Glucose Level 135H, Calcium Level 8.8 Current Medications Medications (Trade) Dose Ordered Sig/Adria Route PRN Reason Start Time Stop Time Status Last Admin Dose Admin Acetaminophen (Tylenol) 650 mg Q4H PRN ORAL Temp >100.5 04/29/20 14:00 05/29/20 13:59 05/05/20 11:43 Albuterol/ Ipratropium (Combivent Respimat) 1 puff Q4H PRN INH Shortness of Breath 04/29/20 14:00 05/29/20 13:59 Amlodipine Besylate (Norvasc) 5 mg BID ORAL 05/04/20 18:00 06/02/20 08:59 05/10/20 09:11 Aspirin (ASA) 81 mg DAILY ORAL 05/01/20 09:00 06/15/20 08:59 05/10/20 09:10 Dextrose (Dextrose 50%) 25 ml Q30M PRN IV Hypoglycemia 05/01/20 15:30 07/30/20 15:29 Dextrose (Dextrose 50%) 50 ml Q30M PRN IV Hypoglycemia 05/01/20 15:30 07/30/20 15:29 Insulin Aspart (NovoLOG) BEFORE MEALS AND HS SUBQ 05/01/20 16:30 07/30/20 16:29 05/10/20 06:43 Insulin Detemir (Levemir) 20 units Q12HR SUBQ 05/04/20 21:00 07/31/20 13:29 05/10/20 09:21 Isosorbide Mononitrate (Imdur) 30 mg DAILY ORAL 05/01/20 09:00 05/31/20 08:59 05/10/20 09:10 Lorazepam (Ativan 2mg/ml 1ml) 2 mg Q2H PRN IV For Anxiety 05/05/20 08:30 05/12/20 08:29 Metoprolol Tartrate (Lopressor) 12.5 mg Q12HR ORAL 05/07/20 21:00 08/05/20 20:59 05/10/20 09:11 Metoprolol Tartrate 2.5 mg/ Dextrose 57.5 ml @ 115 mls/hr Q4H PRN IVPB HR >118 05/04/20 21:00 06/03/20 20:59 05/05/20 13:11 Nateglinide (Starlix) 120 mg TIAC ORAL 05/01/20 16:30 05/31/20 16:29 05/09/20 16:45 Nitroglycerin (Ntg) 0.4 mg Q5MIN X 3 DOSES PRN SL CHEST PAIN 04/30/20 22:45 05/30/20 22:44 Ondansetron HCl (Zofran) 4 mg Q6H PRN IVP Nausea & Vomiting 04/29/20 14:00 05/29/20 13:59 05/10/20 01:17 Pantoprazole (Protonix) 40 mg EVERY 12 HOURS ORAL 05/01/20 21:00 05/31/20 20:59 05/10/20 09:11 Warfarin Sodium (Coumadin per pharmacy) 1 ea DAILY PRN MISC Per rx protocol 04/30/20 22:45 05/30/20 22:44 Assessment/Plan Assessment/Plan ASSESSMENT Covid PNA Acute hypoxemic respiratory failure ( initially, requiring NRM) -resolved Sepsis with bacteremia E. coli bacteremia due to UTI E. coli UTI Acute renal failure on chronic kidney disease Chronic atrial fibrillation Chronic anticoagulation Coagulopathy NSTEMI most likely secondary to demand ischemia Chronic diastolic CHF with pEF Chronic lymphedema lower extremity Hypertension Diabetes mellitus Morbid obesity PLAN OF CARE tele isolation Date of sx onset: unknown Positive test: 04/29 rapid COVID 19 + O2 RA HFA s/p Dex x 6 days ( 04/30-05/05), given RA not a candidate fro REM given renal function DVT PPX: Lovenox D dimer -0.75 Trend CRP 21.6-> 15 Abx per ID recs completing 05/09/20 - today Monitor volumes and renal function Fup with consultants recs FC abx for UTI/bacteremia as per ID, 05/09/20 last day completed repeated BCX 05/05 NGTD stool C dif NGT creat down to 1.7 LG resolved renal US NGT troponin trended down to nearly normal ECHO with pEF 65%, severely elevated LA pressure grade 3, mild pulmonary hypertension a/PLT with ASA, BB and nitrite cardio follows remains in A fib , rate controlled Coumadin on hold given persistent coagulopathy, per pharmacy dosing, s/p vit K x 1 ; INR 4/2 this am BP management with BB and CCB BS management with LA Levemir and SSI as needed diabetic diet and diabetic teaching supportive care dc today to SNF, Coumadin on hold, since INR 4.2 , check INR in the faciltiy, and resume only when INR therapeutic no need for isolation, tested positive more than 10 days ago case discussed and evaluated by supervising physician Edilma Atkins NP May 10, 2020 10:24 Darwin Taylor MD May 10, 2020 20:38
--- NOTE | 2020-05-10 13:18 | Nephrology Progress Note ---
Assessment/Plan Problem List: (1) Renal failure (ARF), acute on chronic (2) Acute respiratory failure (3) Atrial fibrillation, rapid (4) Morbid obesity (5) Diabetes mellitus (6) NSTEMI (non-ST elevated myocardial infarction) Assessment 74-year-old female presents with acute respiratory failure she is morbidly obese Acute renal failure Underlying chronic kidney disease Chronic atrial fibrillation Diabetes mellitus/nephropathy History of DVT Sepsis Non-STEMI KS Morbid obesity Anemia Plan May 10: Labs reviewed. Serum creatinine remains stable at 1.7. Continue per consultants. May 09: Labs reviewed. Serum creatinine 1.7 stable. Stable from renal standpoint of view. Continue per consultants. May 08: Renal parameters continue to improve. Mild leukocytosis persists. Low magnesium addressed. Continue per consultants. May 07: Labs reviewed. Renal parameters improving. Leukocytosis improved. Continue per consultants. Per orders May 06: Today's chemistry panel still pending. Continue to monitor renal parameters. Medication list reviewed. Continue per consultants. May 05: No labs drawn today. Will check renal parameters and chemistries tomorrow. Continue per consultants May 04: Labs reviewed. Serum creatinine appears to be baseline. Levemir dose is increased. Continue to monitor renal parameters and electrolytes. Continue per consultants. May 03: Labs reviewed. Renal parameters improving. Blood sugar better controlled. Will increase Levemir dose. Vitamin D level pending. Continue per consultants. May 02: Serum creatinine lowering. Levemir insulin added for high blood sugar. Norvasc added for better blood pressure control. Continue per consultants. May 01: Serum creatinine 3. INR elevated. Hemoglobin lower. Continue normal saline 75 cc an hour. Starting Starlix for blood sugar control. Kidney ultrasound and 2D echocardiogram results noted. Per orders. Potassium suppleme nt given. Continue to monitor renal parameters and electrolytes. April 30: We will start on renal diet medium carbs. Increase IV fluid to 100 cc an hour. 2D echocardiogram and kidney ultrasound pending. Continue to monitor renal parameters. Avoid nephrotoxic's. Keep the blood pressure and blood sugar in check. Previously: Anne catheter Urine studies Monitor electrolytes Kidney ultrasound Avoid nephrotoxic's 2D echocardiogram Albumin bolus Per orders Subjective ROS Limited/Unobtainable: No Constitutional: Reports: malaise Objective Objective Last 24 Hour Vital Signs Date Time Temp Pulse Resp B/P (MAP) Pulse Ox O2 Delivery O2 Flow Rate FiO2 05/10/20 09:11 64 124/68 05/10/20 09:11 64 124/68 05/10/20 09:10 124/68 05/10/20 09:00 Room Air 05/10/20 08:00 97.7 64 20 124/68 (86) 97 05/10/20 08:00 58 05/10/20 04:00 79 05/10/20 04:00 97.8 75 18 141/76 (97) 98 05/10/20 00:00 62 05/10/20 00:00 97.8 82 16 147/74 (98) 99 05/09/20 21:27 77 145/74 05/09/20 21:00 Room Air 05/09/20 20:00 68 05/09/20 20:00 98.3 77 17 145/74 (97) 99 05/09/20 17:55 73 141/73 05/09/20 16:00 97.7 73 20 141/73 (95) 97 05/09/20 16:00 71 Intake and Output 05/09/20 05/10/20 19:00 07:00 Intake Total 596 ml 480 ml Output Total 1600 ml 1200 ml Balance -1004 ml -720 ml Intake Oral 596 ml 480 ml Output Urine Total 1600 ml 1200 ml # Voids 1 1 Laboratory Tests 05/09/20 16:34: POC Whole Blood Glucose 183H 05/09/20 21:32: POC Whole Blood Glucose [Pending] 05/10/20 05:55: POC Whole Blood Glucose 163H 05/10/20 08:10: White Blood Count 10.0, Red Blood Count 3.25L, Hemoglobin 8.9L, Hematocrit 27.8L , Mean Corpuscular Volume 86, Mean Corpuscular Hemoglobin 27.3, Mean Corpuscular Hemoglobin Concent 31.9L, Red Cell Distribution Width 19.2H, Platelet Count 240, Mean Platelet Volume 10.2H, Neutrophils (%) (Auto) 81.6H, Lymphocytes (%) (Auto) 11.2L, Monocytes (%) (Auto) 5.6, Eosinophils (%) (Auto) 0.9, Basophils (%) (Auto) 0.8, Prothrombin Time 33.8H, Prothromb Time International Ratio 3.4H, Sodium Level 142, Potassium Level 3.9, Chloride Level 109H, Carbon Dioxide Level 28, Anion Gap 5, Blood Urea Nitrogen 29H, Creatinine 1.7H, Estimat Glomerular Filtration Rate 35.6, Glucose Level 135H, Calcium Level 8.8 Height (Feet): 5 Height (Inches): 6.00 Weight (Pounds): 350 General Appearance: no apparent distress Cardiovascular: normal rate Respiratory/Chest: decreased breath sounds Abdomen: distended Pnatera Wallace MD May 10, 2020 13:18
--- NOTE | 2020-05-10 13:20 | Surgery Progress Note ---
Surgery Progress Note Subjective Additional Comments afebrile, HD stable, labs stable comfortable no complaints Objective Last 24 Hour Vital Signs Date Time Temp Pulse Resp B/P (MAP) Pulse Ox O2 Delivery O2 Flow Rate FiO2 05/10/20 09:11 64 124/68 05/10/20 09:11 64 124/68 05/10/20 09:10 124/68 05/10/20 09:00 Room Air 05/10/20 08:00 97.7 64 20 124/68 (86) 97 05/10/20 08:00 58 05/10/20 04:00 79 05/10/20 04:00 97.8 75 18 141/76 (97) 98 05/10/20 00:00 62 05/10/20 00:00 97.8 82 16 147/74 (98) 99 05/09/20 21:27 77 145/74 05/09/20 21:00 Room Air 05/09/20 20:00 68 05/09/20 20:00 98.3 77 17 145/74 (97) 99 05/09/20 17:55 73 141/73 05/09/20 16:00 97.7 73 20 141/73 (95) 97 05/09/20 16:00 71 I&O Intake and Output 05/09/20 05/10/20 19:00 07:00 Intake Total 596 ml 480 ml Output Total 1600 ml 1200 ml Balance -1004 ml -720 ml Intake Oral 596 ml 480 ml Output Urine Total 1600 ml 1200 ml # Voids 1 1 Cardiovascular: RSR Respiratory: clear, decreased breath sounds Abdomen: soft, non-tender, present bowel sounds Extremities: no tenderness, no cyanosis Laboratory Tests Test 05/09/20 16:34 05/09/20 21:32 05/10/20 05:55 05/10/20 08:10 POC Whole Blood Glucose 183 MG/DL (74-106) H Pending 163 MG/DL (74-106) H White Blood Count 10.0 K/UL (4.8-10.8) Red Blood Count 3.25 M/UL (4.20-5.40) L Hemoglobin 8.9 G/DL (12.0-16.0) L Hematocrit 27.8 % (37.0-47.0) L Mean Corpuscular Volume 86 FL (80-99) Mean Corpuscular Hemoglobin 27.3 PG (27.0-31.0) Mean Corpuscular Hemoglobin Concent 31.9 G/DL (32.0-36.0) L Red Cell Distribution Width 19.2 % (11.6-14.8) H Platelet Count 240 K/UL (150-450) Mean Platelet Volume 10.2 FL (6.5-10.1) H Neutrophils (%) (Auto) 81.6 % (45.0-75.0) H Lymphocytes (%) (Auto) 11.2 % (20.0-45.0) L Monocytes (%) (Auto) 5.6 % (1.0-10.0) Eosinophils (%) (Auto) 0.9 % (0.0-3.0) Basophils (%) (Auto) 0.8 % (0.0-2.0) Prothrombin Time 33.8 SEC (9.30-11.50) H Prothromb Time International Ratio 3.4 (0.9-1.1) H Sodium Level 142 MMOL/L (136-145) Potassium Level 3.9 MMOL/L (3.5-5.1) Chloride Level 109 MMOL/L (98-107) H Carbon Dioxide Level 28 MMOL/L (21-32) Anion Gap 5 mmol/L (5-15) Blood Urea Nitrogen 29 mg/dL (7-18) H Creatinine 1.7 MG/DL (0.55-1.30) H Estimat Glomerular Filtration Rate 35.6 mL/min (>60) Glucose Level 135 MG/DL (74-106) H Calcium Level 8.8 MG/DL (8.5-10.1) Plan Problems: (1) Diarrhea Assessment & Plan: 74-year-old female with loose diarrhea C. difficile negative Covid positive. No blood in stool identified. Abdominal exam benign clinically. Denies abdominal pain or discomfort at this time States she is tolerating diet well without concern. Bacteremia and UTI. On antibiotics leukocytosis abnormal labs Diarrhea potentially related to antibiotics. Recommend continuation at this time. Imaging ordered and will be reviewed. meds reviewed and changed Thank you for allowing participate patient's care will follow with recommendations DAILY ESTIMATED NEEDS: Needs based on Mobid obesity, DM, Cardiac/ 74kg abw 20-25 kcals/kg 8683-2237 total kcals 1.25-1.5 g protein/kg 93-111 g total protein 20-25 mL/kg 1067-5261 total fluid mLs NUTRITION DIAGNOSIS: * Morbid obesity R/T life style factors and excessive energy intake [employer] as evidenced by BMI >50. * Altered nutrition related lab values R/T ARF, DM w/ steroidal med as evidenced by elev creat (3.2 -> 2.4 trend down), elev BGs (200's and 300's) pt on Decadron. CURRENT DIET:[facility] MED + RENAL PO DIET RECOMMENDATIONS: CCHO LOW, CARDIAC / texture as tolerated ADDITIONAL RECOMMENDATIONS: * Calibrated bedscale wt * Monitor BGs: 200's and 300's, pt on Decadron Monitor need to adjust insulin * Monitor renal fxn and lytes: creat improving at this time Lytes wnl . (2) Hypoxia (3) Acute respiratory failure Assessment & Plan: Stable cardiomegaly. There is worsening aeration with increased interstitial/rash or congestion. No dense consolidation. No significant pleural effusion. No pneumothorax. Osseous structures. No acute abnormal Impression: Worsening aeration suggesting CHF/interstitial edema. Superimposed pneumonia needs to be excluded clinically (4) Atrial fibrillation, rapid (5) Gram-negative bacteremia (6) 2019 novel coronavirus disease (COVID-19) Assessment & Plan: ++ appreciate ID and pulm input (7) Bacteremia due to Gram-negative bacteria Assessment & Plan: on abx potential source of diarrhea cont diet c diff neg (8) Respiratory failure (9) Anasarca (10) Diabetes mellitus (11) Morbid obesity (12) Peripheral edema (13) Chronic atrial fibrillation (14) History of DVT (deep vein thrombosis) (15) Renal failure (ARF), acute on chronic (16) Limited mobility (17) Sepsis (18) NSTEMI (non-ST elevated myocardial infarction) Franco Baeza May 10, 2020 13:20
--- NOTE | 2020-05-10 13:52 | Cardiology Progress Note ---
Assessment/Plan Problem List: (1) 2019 novel coronavirus disease (COVID-19) (2) Diabetes mellitus (3) Peripheral edema (4) Morbid obesity (5) Chronic atrial fibrillation (6) Hypertension Status: stable, progressing Status Narrative COVID 19 infection. -Covid + on 04/29. E Coli UTI/ bacteremia - HTN - stable, controlled w/ meds. Permanent AF- nl. ventricular rates. hx of bradycardia w/ clonidine and metoprolol Assessment/Plan Continue metoprolol for rate control in AF Continue to hold warfarin as inr > 3, but decreasing toward therapeutic range Repeat inr in am. Monitor for any s/sx bleeding. u/a + blood Continue management for COVID 19 and e coli uti/bacteremia - completing rocephin course today. Plan for dc to SNF Subjective ROS Limited/Unobtainable: No Subjective Cardiology for Dr. Barker Pt is awake/ alert. She has no c/o pain, dyspnea Objective Last 24 Hour Vital Signs Date Time Temp Pulse Resp B/P (MAP) Pulse Ox O2 Delivery O2 Flow Rate FiO2 05/10/20 12:00 77 05/10/20 09:11 64 124/68 05/10/20 09:11 64 124/68 05/10/20 09:10 124/68 05/10/20 09:00 Room Air 05/10/20 08:00 97.7 64 20 124/68 (86) 97 05/10/20 08:00 58 05/10/20 04:00 79 05/10/20 04:00 97.8 75 18 141/76 (97) 98 05/10/20 00:00 62 05/10/20 00:00 97.8 82 16 147/74 (98) 99 05/09/20 21:27 77 145/74 05/09/20 21:00 Room Air 05/09/20 20:00 68 05/09/20 20:00 98.3 77 17 145/74 (97) 99 05/09/20 17:55 73 141/73 05/09/20 16:00 97.7 73 20 141/73 (95) 97 05/09/20 16:00 71 General Appearance: WD/WN, obese EENT: PERRL/EOMI Neck: supple, no JVD Rhythm: Afib Cardiovascular: normal rate, systolic murmur, irregularly irregular, other - i/vi systolic m at LLSB Respiratory/Chest: lungs clear Abdomen: normal bowel sounds, non tender, soft Extremities: no swelling Intake and Output 05/09/20 05/10/20 19:00 07:00 Intake Total 596 ml 480 ml Output Total 1600 ml 1200 ml Balance -1004 ml -720 ml Intake Oral 596 ml 480 ml Output Urine Total 1600 ml 1200 ml # Voids 1 1 Laboratory Tests Test 05/09/20 16:34 05/09/20 21:32 05/10/20 05:55 05/10/20 08:10 POC Whole Blood Glucose 183 MG/DL (74-106) H Pending 163 MG/DL (74-106) H White Blood Count 10.0 K/UL (4.8-10.8) Red Blood Count 3.25 M/UL (4.20-5.40) L Hemoglobin 8.9 G/DL (12.0-16.0) L Hematocrit 27.8 % (37.0-47.0) L Mean Corpuscular Volume 86 FL (80-99) Mean Corpuscular Hemoglobin 27.3 PG (27.0-31.0) Mean Corpuscular Hemoglobin Concent 31.9 G/DL (32.0-36.0) L Red Cell Distribution Width 19.2 % (11.6-14.8) H Platelet Count 240 K/UL (150-450) Mean Platelet Volume 10.2 FL (6.5-10.1) H Neutrophils (%) (Auto) 81.6 % (45.0-75.0) H Lymphocytes (%) (Auto) 11.2 % (20.0-45.0) L Monocytes (%) (Auto) 5.6 % (1.0-10.0) Eosinophils (%) (Auto) 0.9 % (0.0-3.0) Basophils (%) (Auto) 0.8 % (0.0-2.0) Prothrombin Time 33.8 SEC (9.30-11.50) H Prothromb Time International Ratio 3.4 (0.9-1.1) H Sodium Level 142 MMOL/L (136-145) Potassium Level 3.9 MMOL/L (3.5-5.1) Chloride Level 109 MMOL/L (98-107) H Carbon Dioxide Level 28 MMOL/L (21-32) Anion Gap 5 mmol/L (5-15) Blood Urea Nitrogen 29 mg/dL (7-18) H Creatinine 1.7 MG/DL (0.55-1.30) H Estimat Glomerular Filtration Rate 35.6 mL/min (>60) Glucose Level 135 MG/DL (74-106) H Calcium Level 8.8 MG/DL (8.5-10.1) Juliet Biswas MD May 10, 2020 13:52
--- NOTE | 2020-05-10 15:23 | Internal Med Progress Note ---
Subjective Date of Service: May 10, 2020 Physician Name Johny Blankenship Attending Physician Aleksandr Vega MD Current Medications Medications (Trade) Dose Ordered Sig/Adria Route PRN Reason Start Time Stop Time Status Last Admin Dose Admin Acetaminophen (Tylenol) 650 mg Q4H PRN ORAL Temp >100.5 04/29/20 14:00 05/29/20 13:59 05/05/20 11:43 Albuterol/ Ipratropium (Combivent Respimat) 1 puff Q4H PRN INH Shortness of Breath 04/29/20 14:00 05/29/20 13:59 Amlodipine Besylate (Norvasc) 5 mg BID ORAL 05/04/20 18:00 06/02/20 08:59 05/10/20 09:11 Aspirin (ASA) 81 mg DAILY ORAL 05/01/20 09:00 06/15/20 08:59 05/10/20 09:10 Dextrose (Dextrose 50%) 25 ml Q30M PRN IV Hypoglycemia 05/01/20 15:30 07/30/20 15:29 Dextrose (Dextrose 50%) 50 ml Q30M PRN IV Hypoglycemia 05/01/20 15:30 07/30/20 15:29 Insulin Aspart (NovoLOG) BEFORE MEALS AND HS SUBQ 05/01/20 16:30 07/30/20 16:29 05/10/20 06:43 Insulin Detemir (Levemir) 20 units Q12HR SUBQ 05/04/20 21:00 07/31/20 13:29 05/10/20 09:21 Isosorbide Mononitrate (Imdur) 30 mg DAILY ORAL 05/01/20 09:00 05/31/20 08:59 05/10/20 09:10 Lorazepam (Ativan 2mg/ml 1ml) 2 mg Q2H PRN IV For Anxiety 05/05/20 08:30 05/12/20 08:29 Metoprolol Tartrate (Lopressor) 12.5 mg Q12HR ORAL 05/07/20 21:00 08/05/20 20:59 05/10/20 09:11 Metoprolol Tartrate 2.5 mg/ Dextrose 57.5 ml @ 115 mls/hr Q4H PRN IVPB HR >118 05/04/20 21:00 06/03/20 20:59 05/05/20 13:11 Nateglinide (Starlix) 120 mg TIAC ORAL 05/01/20 16:30 05/31/20 16:29 05/10/20 12:04 Nitroglycerin (Ntg) 0.4 mg Q5MIN X 3 DOSES PRN SL CHEST PAIN 04/30/20 22:45 05/30/20 22:44 Ondansetron HCl (Zofran) 4 mg Q6H PRN IVP Nausea & Vomiting 04/29/20 14:00 05/29/20 13:59 05/10/20 01:17 Pantoprazole (Protonix) 40 mg EVERY 12 HOURS ORAL 05/01/20 21:00 05/31/20 20:59 05/10/20 09:11 Warfarin Sodium (Coumadin per pharmacy) 1 ea DAILY PRN MISC Per rx protocol 04/30/20 22:45 05/30/20 22:44 Allergies: Coded Allergies: CODEINE (Verified Allergy, Unknown, 10/10/19) ROS Limited/Unobtainable: Yes Subjective 74 YO F admitted with shortness of breath. Now COVID 19, sepsis, UTI and pneumonia. Cover for Int Med-Tele Objective Last Vital Signs Date Time Temp Pulse Resp B/P (MAP) Pulse Ox O2 Delivery O2 Flow Rate FiO2 05/10/20 12:00 77 05/10/20 09:11 124/68 05/10/20 09:00 Room Air 05/10/20 08:00 97.7 20 97 05/02/20 21:00 2.0 Laboratory Tests Test 05/09/20 16:34 05/09/20 21:32 05/10/20 05:55 05/10/20 08:10 POC Whole Blood Glucose 183 MG/DL (74-106) H Pending 163 MG/DL (74-106) H White Blood Count 10.0 K/UL (4.8-10.8) Red Blood Count 3.25 M/UL (4.20-5.40) L Hemoglobin 8.9 G/DL (12.0-16.0) L Hematocrit 27.8 % (37.0-47.0) L Mean Corpuscular Volume 86 FL (80-99) Mean Corpuscular Hemoglobin 27.3 PG (27.0-31.0) Mean Corpuscular Hemoglobin Concent 31.9 G/DL (32.0-36.0) L Red Cell Distribution Width 19.2 % (11.6-14.8) H Platelet Count 240 K/UL (150-450) Mean Platelet Volume 10.2 FL (6.5-10.1) H Neutrophils (%) (Auto) 81.6 % (45.0-75.0) H Lymphocytes (%) (Auto) 11.2 % (20.0-45.0) L Monocytes (%) (Auto) 5.6 % (1.0-10.0) Eosinophils (%) (Auto) 0.9 % (0.0-3.0) Basophils (%) (Auto) 0.8 % (0.0-2.0) Prothrombin Time 33.8 SEC (9.30-11.50) H Prothromb Time International Ratio 3.4 (0.9-1.1) H Sodium Level 142 MMOL/L (136-145) Potassium Level 3.9 MMOL/L (3.5-5.1) Chloride Level 109 MMOL/L (98-107) H Carbon Dioxide Level 28 MMOL/L (21-32) Anion Gap 5 mmol/L (5-15) Blood Urea Nitrogen 29 mg/dL (7-18) H Creatinine 1.7 MG/DL (0.55-1.30) H Estimat Glomerular Filtration Rate 35.6 mL/min (>60) Glucose Level 135 MG/DL (74-106) H Calcium Level 8.8 MG/DL (8.5-10.1) Intake and Output 05/09/20 05/10/20 19:00 07:00 Intake Total 596 ml 480 ml Output Total 1600 ml 1200 ml Balance -1004 ml -720 ml Intake Oral 596 ml 480 ml Output Urine Total 1600 ml 1200 ml # Voids 1 1 Objective Objective General: No acute distress, awake and alert HEENT: NCAT, sclera anicteric, PERRL, EOMI. Neck: Supple, no significant jugular venous distention, Lungs: fair inspiratory effort, decreased air at the bases, no Wheeze or Rales. Heart: Regular rate and rhythm, normal S1/S2, no murmurs/ Abdomen: soft, nontender, nondistended. Normoactive bowel sounds, morbid obesity. / Rectal: Refused and deferred. Extremities: No Cyanosis or clubbing, decreased edema bilateral lower extremities. Neuro: A&O x 3, Able to move all extremities Skin: warm, no rashes or lesions Psych: Normal mood and affect Assessment/Plan Assessment/Plan Assessment/Plan Assessment/Plan 1. Acute hypoxemic respiratory failure. 2. COVID-19 pneumonia. 3. Acute renal failure on chronic renal insufficiency. 4. E. Coli Sepsis / Bacteremia. 5. Acute E. Coli urinary tract infection. 6. Morbid obesity. 7. Chronic atrial fibrillation with rapid ventricular rate. 8. Diabetes type 2. 9. Coronary artery disease with prior history of myocardial infarction. 10. Non-ST elevation myocardial infarction, most likely secondary to demand ischemia. 11. Anemia of chronic kidney disease. 12. History of DVT of lower extremity. 13. Chronic Congestive heart failure with reduced ejection fraction. 14. Hypertension. 15. Chronic lymphedema of lower extremity. PLAN: Telemetry Antibiotic: S/P Day #10/10 Rocephin IV, Decadron IV. Dr. Keiry Amezquita=Infectious Disease. Dr. Brownlee = Pulmonary and Critical Care Dr. Pantera Wallace = Nephrology. Code status: Full Code. DVT prophylaxis: Coumadin follow-up with cultures and laboratory in the morning. CODE STATUS: Full code. Discharge planning: [facility] Johny Blankenship MD May 10, 2020 15:23
[2020-05-10 16:00] VITALS: BP 131/71
[2020-05-10 20:00] VITALS: BP 137/64
[2020-05-11] VITALS: BP 127/69
[2020-05-11 04:00] VITALS: BP 131/66
[2020-05-11 04:21] LABS: BASOPHILS % (AUTO) 0.8 % (0.0-2.0); EOSINOPHILS % (AUTO) 1.6 % (0.0-3.0); HEMATOCRIT 28.7 % (37.0-47.0); LYMPHOCYTES % (AUTO) 13.9 % (20.0-45.0); MEAN CORPUSCULAR VOLUME 86 FL (80-99); MONOCYTES % (AUTO) 7.3 % (1.0-10.0); NEUTROPHILS % (AUTO) 76.5 % (45.0-75.0); PLATELET COUNT 223 K/UL (150-450); RED BLOOD COUNT 3.36 M/UL (4.20-5.40); RED CELL DISTRIBUTION WIDTH 19.3 % (11.6-14.8); WHITE BLOOD COUNT 8.9 K/UL (4.8-10.8)
[2020-05-11 04:30] LABS: CALCIUM 8.9 MG/DL (8.5-10.1); CREATININE 1.7 MG/DL (0.55-1.30); POTASSIUM 3.8 MMOL/L (3.5-5.1)
[2020-05-11] MEDS: NovoLOG Insulin Flexpen SUBQ SCH ×2 (06:03→11:30)
[2020-05-11 08:00] VITALS: BP 135/68
[2020-05-11] MEDS: Metoprolol Tartrate 12.5mg TAB ORAL SCH (09:00)
--- NOTE | 2020-05-11 09:22 | Pulmonology Progress Note ---
Subjective ROS Limited/Unobtainable: Yes Interval Events: doing better Allergies: Coded Allergies: CODEINE (Verified Allergy, Unknown, 10/10/19) Subjective on RA, afebrile, denies chest pain, SOB in isolation no signs of resp distress completed abx treatment 05/09 dc in progress, was not dc 05/10 since her SNF is not taking admission on weekends Objective Last 24 Hour Vital Signs Date Time Temp Pulse Resp B/P (MAP) Pulse Ox O2 Delivery O2 Flow Rate FiO2 05/11/20 04:00 51 05/11/20 04:00 98.1 67 17 131/66 (87) 96 05/11/20 00:00 47 05/11/20 00:00 98.2 70 15 127/69 (88) 96 05/10/20 21:00 Room Air 05/10/20 20:32 70 145/75 05/10/20 20:00 97.9 70 17 137/64 (88) 96 05/10/20 20:00 43 05/10/20 17:21 74 131/71 05/10/20 16:00 97.7 74 20 131/71 (91) 98 05/10/20 16:00 54 05/10/20 16:00 97.7 74 20 131/71 (91) 98 05/10/20 12:00 77 Intake and Output 05/10/20 05/11/20 19:00 07:00 Intake Total 600 ml 480 ml Output Total 900 ml 600 ml Balance -300 ml -120 ml Intake Oral 600 ml 480 ml Output Urine Total 900 ml 600 ml # Voids 1 General Appearance: WD/WN - morbidly obese very pleasant AA female in NAD HEENT: normocephalic, atraumatic, anicteric, mucous membranes moist Respiratory: chest wall non-tender, lungs clear, no respiratory distress, no accessory muscle use Cardiovascular: normal peripheral pulses, normal rate, other - A fib Abdomen: normal bowel sounds, soft, non tender - obese Extremities: other - chronic lymphedema Neurologic: information broker II-XII grossly normal, alert, oriented x 3, responsive Musculoskeletal: normal muscle bulk Laboratory Tests 05/10/20 16:40: POC Whole Blood Glucose 137H 05/11/20 04:00: White Blood Count 8.9, Red Blood Count 3.36L, Hemoglobin 9.0L, Hematocrit 28.7L, Mean Corpuscular Volume 86, Mean Corpuscular Hemoglobin 26.9L, Mean Corpuscular Hemoglobin Concent 31.4L, Red Cell Distribution Width 19.3H, Platelet Count 223, Mean Platelet Volume 9.0, Neutrophils (%) (Auto) 76.5H, Lymphocytes (%) (Auto) 13.9L, Monocytes (%) (Auto) 7.3, Eosinophils (%) (Auto) 1.6, Basophils (%) (Auto) 0.8, Prothrombin Time 30.2H, Prothromb Time International Ratio 3.0H, Sodium Level 140, Potassium Level 3.8, Chloride Level 108H, Carbon Dioxide Level 28, Anion Gap 4L, Blood Urea Nitrogen 26H, Creatinine 1.7H, Estimat Glomerular Filtration Rate 35.6, Glucose Level 75, Calcium Level 8.9 Current Medications Medications (Trade) Dose Ordered Sig/Adria Route PRN Reason Start Time Stop Time Status Last Admin Dose Admin Acetaminophen (Tylenol) 650 mg Q4H PRN ORAL Temp >100.5 04/29/20 14:00 05/29/20 13:59 05/05/20 11:43 Albuterol/ Ipratropium (Combivent Respimat) 1 puff Q4H PRN INH Shortness of Breath 04/29/20 14:00 05/29/20 13:59 Amlodipine Besylate (Norvasc) 5 mg BID ORAL 05/04/20 18:00 06/02/20 08:59 05/10/20 17:21 Aspirin (ASA) 81 mg DAILY ORAL 05/01/20 09:00 06/15/20 08:59 05/10/20 09:10 Dextrose (Dextrose 50%) 25 ml Q30M PRN IV Hypoglycemia 05/01/20 15:30 07/30/20 15:29 Dextrose (Dextrose 50%) 50 ml Q30M PRN IV Hypoglycemia 05/01/20 15:30 07/30/20 15:29 Insulin Aspart (NovoLOG) BEFORE MEALS AND HS SUBQ 05/01/20 16:30 07/30/20 16:29 05/10/20 20:54 Insulin Detemir (Levemir) 20 units Q12HR SUBQ 05/04/20 21:00 07/31/20 13:29 05/10/20 20:54 Isosorbide Mononitrate (Imdur) 30 mg DAILY ORAL 05/01/20 09:00 05/31/20 08:59 05/10/20 09:10 Lorazepam (Ativan 2mg/ml 1ml) 2 mg Q2H PRN IV For Anxiety 05/05/20 08:30 05/12/20 08:29 Metoprolol Tartrate (Lopressor) 12.5 mg Q12HR ORAL 05/07/20 21:00 08/05/20 20:59 05/10/20 20:32 Metoprolol Tartrate 2.5 mg/ Dextrose 57.5 ml @ 115 mls/hr Q4H PRN IVPB HR >118 05/04/20 21:00 06/03/20 20:59 05/05/20 13:11 Nateglinide (Starlix) 120 mg TIAC ORAL 05/01/20 16:30 05/31/20 16:29 05/11/20 06:03 Nitroglycerin (Ntg) 0.4 mg Q5MIN X 3 DOSES PRN SL CHEST PAIN 04/30/20 22:45 05/30/20 22:44 Ondansetron HCl (Zofran) 4 mg Q6H PRN IVP Nausea & Vomiting 04/29/20 14:00 05/29/20 13:59 05/10/20 01:17 Pantoprazole (Protonix) 40 mg EVERY 12 HOURS ORAL 05/01/20 21:00 05/31/20 20:59 05/10/20 20:32 Warfarin Sodium (Coumadin per pharmacy) 1 ea DAILY PRN MISC Per rx protocol 04/30/20 22:45 05/30/20 22:44 Warfarin Sodium (Coumadin) 5 mg COUMADIN ORAL 05/11/20 17:00 05/11/20 18:00 Assessment/Plan Assessment/Plan ASSESSMENT Covid PNA Acute hypoxemic respiratory failure ( initially, requiring NRM) -resolved Sepsis with bacteremia E. coli bacteremia due to UTI E. coli UTI Acute renal failure on chronic kidney disease Chronic atrial fibrillation Chronic anticoagulation Coagulopathy NSTEMI most likely secondary to demand ischemia Chronic diastolic CHF with pEF Chronic lymphedema lower extremity Hypertension Diabetes mellitus Morbid obesity PLAN OF CARE tele isolation Date of sx onset: unknown Positive test: 04/29 rapid COVID 19 + O2 RA HFA s/p Dex x 6 days ( 04/30-05/05), given RA not a candidate fro REM given renal function DVT PPX: Lovenox D dimer -0.75 Trend CRP 21.6-> 15 Abx per ID recs completing 05/09/20 - today Monitor volumes and renal function Fup with consultants recs FC abx for UTI/bacteremia as per ID, completed repeated BCX 05/05 NGTD stool C dif NGT creat down to 1.7 LG resolved renal US NGT troponin trended down to nearly normal ECHO with pEF 65%, severely elevated LA pressure grade 3, mild pulmonary hypertension a/PLT with ASA, BB and nitrite cardio follows remains in A fib , rate controlled Coumadin was on hold given persistent coagulopathy, per pharmacy dosing, s/p vit K x 1 ; INR 3.0 this am . Coumadin restarted per pharmacy BP management with BB and CCB BS management with LA Levemir and SSI as needed diabetic diet and diabetic teaching supportive care dc today to SNF, Coumadin resumed today 4 mg monitro INR at the facility case discussed and evaluated by supervising physician Edilma Atkins NP May 11, 2020 09:22 Darwin Taylor MD May 11, 2020 21:44
[2020-05-11] MEDS ORDERED: WARFARIN SODIUM4 MG ORAL (09:25)
[2020-05-11] MEDS: Aspirin Baby 81mg ORAL SCH (09:44)
[2020-05-11] MEDS: Imdur 30mg tab ORAL SCH (09:44)
[2020-05-11 09:46] VITALS: BP 135/68
[2020-05-11] MEDS: Levemir Flexpen SUBQ SCH (09:51)
--- NOTE | 2020-05-11 13:03 | Surgery Progress Note ---
Surgery Progress Note Subjective Additional Comments tolerating diet comfortable no n/v no complaints still with mild diarrhea Objective Last 24 Hour Vital Signs Date Time Temp Pulse Resp B/P (MAP) Pulse Ox O2 Delivery O2 Flow Rate FiO2 05/11/20 09:46 60 135/68 05/11/20 09:44 135/68 05/11/20 09:00 60 135/68 05/11/20 09:00 Room Air 05/11/20 08:00 59 05/11/20 08:00 97.9 60 18 135/68 (90) 97 05/11/20 04:00 51 05/11/20 04:00 98.1 67 17 131/66 (87) 96 05/11/20 00:00 47 05/11/20 00:00 98.2 70 15 127/69 (88) 96 05/10/20 21:00 Room Air 05/10/20 20:32 70 145/75 05/10/20 20:00 97.9 70 17 137/64 (88) 96 05/10/20 20:00 43 05/10/20 17:21 74 131/71 05/10/20 16:00 97.7 74 20 131/71 (91) 98 05/10/20 16:00 54 05/10/20 16:00 97.7 74 20 131/71 (91) 98 I&O Intake and Output 05/10/20 05/11/20 19:00 07:00 Intake Total 600 ml 480 ml Output Total 900 ml 600 ml Balance -300 ml -120 ml Intake Oral 600 ml 480 ml Output Urine Total 900 ml 600 ml # Voids 1 Dressing: saturated Cardiovascular: RSR Respiratory: decreased breath sounds Abdomen: soft, non-tender, present bowel sounds Extremities: no tenderness, no cyanosis Laboratory Tests Test 05/10/20 16:40 05/11/20 04:00 POC Whole Blood Glucose 137 MG/DL (74-106) H White Blood Count 8.9 K/UL (4.8-10.8) Red Blood Count 3.36 M/UL (4.20-5.40) L Hemoglobin 9.0 G/DL (12.0-16.0) L Hematocrit 28.7 % (37.0-47.0) L Mean Corpuscular Volume 86 FL (80-99) Mean Corpuscular Hemoglobin 26.9 PG (27.0-31.0) L Mean Corpuscular Hemoglobin Concent 31.4 G/DL (32.0-36.0) L Red Cell Distribution Width 19.3 % (11.6-14.8) H Platelet Count 223 K/UL (150-450) Mean Platelet Volume 9.0 FL (6.5-10.1) Neutrophils (%) (Auto) 76.5 % (45.0-75.0) H Lymphocytes (%) (Auto) 13.9 % (20.0-45.0) L Monocytes (%) (Auto) 7.3 % (1.0-10.0) Eosinophils (%) (Auto) 1.6 % (0.0-3.0) Basophils (%) (Auto) 0.8 % (0.0-2.0) Prothrombin Time 30.2 SEC (9.30-11.50) H Prothromb Time International Ratio 3.0 (0.9-1.1) H Sodium Level 140 MMOL/L (136-145) Potassium Level 3.8 MMOL/L (3.5-5.1) Chloride Level 108 MMOL/L (98-107) H Carbon Dioxide Level 28 MMOL/L (21-32) Anion Gap 4 mmol/L (5-15) L Blood Urea Nitrogen 26 mg/dL (7-18) H Creatinine 1.7 MG/DL (0.55-1.30) H Estimat Glomerular Filtration Rate 35.6 mL/min (>60) Glucose Level 75 MG/DL (74-106) Calcium Level 8.9 MG/DL (8.5-10.1) Plan Problems: (1) Diarrhea Assessment & Plan: 74-year-old female with loose diarrhea C. difficile negative Covid positive. No blood in stool identified. Abdominal exam benign clinically. Denies abdominal pain or discomfort at this time States she is tolerating diet well without concern. Bacteremia and UTI. On antibiotics leukocytosis abnormal labs Diarrhea potentially related to antibiotics. Recommend continuation at this time. Imaging ordered and will be reviewed. 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 * Altered nutrition related lab values R/T ARF, DM w/ steroidal med as evidenced by elev creat (3.2 -> 2.4 trend down), elev BGs (200's and 300's) pt on Decadron. CURRENT DIET:[facility] MED + RENAL PO DIET RECOMMENDATIONS: CCHO LOW, CARDIAC / texture as tolerated ADDITIONAL RECOMMENDATIONS: * Calibrated bedscale wt * Monitor BGs: 200's and 300's, pt on Decadron Monitor need to adjust insulin * Monitor renal fxn and lytes: creat improving at this time Lytes wnl . (2) Hypoxia (3) Acute respiratory failure Assessment & Plan: Stable cardiomegaly. There is worsening aeration with increased interstitial/rash or congestion. No dense consolidation. No significant pleural effusion. No pneumothorax. Osseous structures. No acute abnormal Impression: Worsening aeration suggesting CHF/interstitial edema. Superimposed pneumonia needs to be excluded clinically (4) Atrial fibrillation, rapid (5) Gram-negative bacteremia (6) 2019 novel coronavirus disease (COVID-19) Assessment & Plan: ++ appreciate ID and pulm input (7) Bacteremia due to Gram-negative bacteria Assessment & Plan: on abx potential source of diarrhea cont diet c diff neg (8) Respiratory failure (9) Anasarca (10) Diabetes mellitus (11) Morbid obesity (12) Peripheral edema (13) Chronic atrial fibrillation (14) History of DVT (deep vein thrombosis) (15) Renal failure (ARF), acute on chronic (16) Limited mobility (17) Sepsis (18) NSTEMI (non-ST elevated myocardial infarction) Franco Baeza May 11, 2020 13:03
--- NOTE | 2020-05-11 13:28 | Nephrology Progress Note ---
Assessment/Plan Problem List: (1) Renal failure (ARF), acute on chronic (2) Acute respiratory failure (3) Atrial fibrillation, rapid (4) Morbid obesity (5) Diabetes mellitus (6) NSTEMI (non-ST elevated myocardial infarction) Assessment 74-year-old female presents with acute respiratory failure she is morbidly obese Acute renal failure Underlying chronic kidney disease Chronic atrial fibrillation Diabetes mellitus/nephropathy History of DVT Sepsis Non-STEMI MS Morbid obesity Anemia Plan May 11: Labs reviewed. Renal parameters stable. Continue per current treatment plan. May 10: Labs reviewed. Serum creatinine remains stable at 1.7. Continue per consultants. May 09: Labs reviewed. Serum creatinine 1.7 stable. Stable from renal standpoint of view. Continue per consultants. May 08: Renal parameters continue to improve. Mild leukocytosis persists. Low magnesium addressed. Continue per consultants. May 07: Labs reviewed. Renal parameters improving. Leukocytosis improved. Continue per consultants. Per orders May 06: Today's chemistry panel still pending. Continue to monitor renal parameters. Medication list reviewed. Continue per consultants. May 05: No labs drawn today. Will check renal parameters and chemistries tomorrow. Continue per consultants May 04: Labs reviewed. Serum creatinine appears to be baseline. Levemir dose is increased. Continue to monitor renal parameters and electrolytes. Continue per consultants. May 03: Labs reviewed. Renal parameters improving. Blood sugar better controlled. Will increase Levemir dose. Vitamin D level pending. Continue per consultants. May 02: Serum creatinine lowering. Levemir insulin added for high blood sugar. Norvasc added for better blood pressure control. Continue per consultants. May 01: Serum creatinine 3. INR elevated. Hemoglobin lower. Continue normal saline 75 cc an hour. Starting Starlix for blood sugar control. Kidney ultrasound and 2D echocardiogram results noted. Per orders. Potassium supplement given. Continue to monitor renal parameters and electrolytes. April 30: We will start on renal diet medium carbs. Increase IV fluid to 100 cc an hour. 2D echocardiogram and kidney ultrasound pending. Continue to monitor renal parameters. Avoid nephrotoxic's. Keep the blood pressure and blood sugar in check. Previously: Anne catheter Urine studies Monitor electrolytes Kidney ultrasound Avoid nephrotoxic's 2D echocardiogram Albumin bolus Per orders Subjective ROS Limited/Unobtainable: No Constitutional: Reports: malaise, weakness Objective Objective Last 24 Hour Vital Signs Date Time Temp Pulse Resp B/P (MAP) Pulse Ox O2 Delivery O2 Flow Rate FiO2 05/11/20 09:46 60 135/68 05/11/20 09:44 135/68 05/11/20 09:00 60 135/68 05/11/20 09:00 Room Air 05/11/20 08:00 59 05/11/20 08:00 97.9 60 18 135/68 (90) 97 05/11/20 04:00 51 05/11/20 04:00 98.1 67 17 131/66 (87) 96 05/11/20 00:00 47 05/11/20 00:00 98.2 70 15 127/69 (88) 96 05/10/20 21:00 Room Air 05/10/20 20:32 70 145/75 05/10/20 20:00 97.9 70 17 137/64 (88) 96 05/10/20 20:00 43 05/10/20 17:21 74 131/71 05/10/20 16:00 97.7 74 20 131/71 (91) 98 05/10/20 16:00 54 05/10/20 16:00 97.7 74 20 131/71 (91) 98 Intake and Output 05/10/20 05/11/20 19:00 07:00 Intake Total 600 ml 480 ml Output Total 900 ml 600 ml Balance -300 ml -120 ml Intake Oral 600 ml 480 ml Output Urine Total 900 ml 600 ml # Voids 1 Laboratory Tests 05/10/20 16:40: POC Whole Blood Glucose 137H 05/11/20 04:00: White Blood Count 8.9, Red Blood Count 3.36L, Hemoglobin 9.0L, Hematocrit 28.7L, Mean Corpuscular Volume 86, Mean Corpuscular Hemoglobin 26.9L, Mean Corpuscular Hemoglobin Concent 31.4L, Red Cell Distribution Width 19.3H, Platelet Count 223, Mean Platelet Volume 9.0, Neutrophils (%) (Auto) 76.5H, Lymphocytes (%) (Auto) 13.9L, Monocytes (%) (Auto) 7.3, Eosinophils (%) (Auto) 1.6, Basophils (%) (Auto) 0.8, Prothrombin Time 30.2H, Prothromb Time International Ratio 3.0H, Sodium Level 140, Potassium Level 3.8, Chloride Level 108H, Carbon Dioxide Level 28, Anion Gap 4L, Blood Urea Nitrogen 26H, Creatinine 1.7H, Estimat Glomerular Filtration Rate 35.6, Glucose Level 75, Calcium Level 8.9 Height (Feet): 5 Height (Inches): 6.00 Weight (Pounds): 350 General Appearance: no apparent distress, lethargic Cardiovascular: normal rate Respiratory/Chest: decreased breath sounds Abdomen: distended Pantera Wallace MD May 11, 2020 13:28
[2020-05-11] MEDS ORDERED: Warfarin Sodium 5mg ORAL SCH (17:00)
--- NOTE | 2020-05-13 02:10 | Cardiology Report ---
APPROVED REPORT EXAM: Two-dimensional and M-mode echocardiogram with Doppler and color Doppler. INDICATION Left ventricular function M-Mode DIMENSIONS IVSd1.1 (0.7-1.1cm)Left Atrium (MM)5.0 (1.6-4.0cm) LVDd4.7 (3.5-5.6cm)Aortic Root3.0 (2.0-3.7cm) PWd1.1 (0.7-1.1cm)Aortic Cusp Exc.1.5 (1.5-2.0cm) IVSs1.9 cmEPSS0.3 (>1.0cm) LVDs2.9 (2.5-4.0cm) PWs1.7 cm <Conclusion> Technically difficult study due to poor acoustical windows. Normal left ventricular chamber size, systolic function to extent visualized. This study precludes analysis of LV wall motion. No evidence of left ventricular hypertrophy. Anterior Echo-free space, may be due to pericardial fat or effusion. Mild bi-atrial enlargement. Right ventricular chamber sizes is upper normal limits. Focal aortic valve sclerosis with adequate cusp excursion. Thickened mitral valve leaflets with normal excursion. Mitral annulus and aortic root calcification. Pulmonic valve not well visualized. Normal tricuspid valve structure. IVC at 2.1 without physiologic collapse suggestive of increased RA pressure. A color flow and spectral Doppler study was performed and revealed: Trace aortic regurgitation. Trace mitral regurgitation. Mitral inflow indicates restrictive pattern, implying severely elevated left atrial pressure (Grade III ). Mild to moderate tricuspid regurgitation. Tricuspid systolic velocities suggests peak right ventricular systolic pressure of 45 mmHg, consistent with mild pulmonary hypertension. Pulmonic regurgitation present.
--- NOTE | 2020-05-13 02:33 | Cardiology Report ---
APPROVED REPORT EKG Measurement Heart [id number] <Conclusion> Atrial fibrillation Low voltage QRS Right bundle branch block Left anterior fascicular block Bifascicular block Septal infarct, age undetermined Possible Lateral infarct, age undetermined Abnormal ECG
--- NOTE | 2020-05-14 14:37 | Discharge Summary ---
Discharge Summary Discharge Summary _ DATE OF ADMISSION: 04/29/2020 DATE OF DISCHARGE: 05/11/2020 DISCHARGED BY: Dr. Vega REASON FOR ADMISSION: 74 years old female with past medical history of diabetes mellitus type 2, hypertension, chronic atrial fibrillation, on anticoagulation, coronary artery disease, history of DE, congestive heart failure, hypothyroidism, chronic bilateral lower extremity lymphedema, obesity, dyslipidemia , rheumatoid arthritis, iron deficiency anemia was sent from the [facility] facility due to shortness of breath and cough. Patient was hypoxic on room air and placed on nonrebreather mask by paramedics with saturation reaching 90%. Rapid COVID-19 on 1223 was positive. Chest x-ray revealed cardiomegaly no acute process. Laboratory work-up revealed significant leukocytosis WBC 24.9, hemoglobin 10.9, hematocrit 32 platelet count 287. INR 4.7 urinalysis revealed a finding consistent with a urinary tract infection along with a +3 protein. BUN 41, creatinine 2.9. Potassium 3.2. Phosphorus 1.7 , magnesium 1.2. Lactic acid 4.9 , repeated 3.1. Troponin 0.634, pro BNP 8602. EKG revealed atrial fibrillation with controlled ventricular response. CRP 21.6, LDH 274, ferritin 202 , D-dimer 0.75 Shortly after initial evaluation emergency department she was admitted in the hospital with COVID-19 pneumonia and acute hypoxemic respiratory failure. CONSULTANTS: investor relations specialist Dr. Barker pulmonary Dr. Brownlee IDspecialist Dr. Amezquita knuckle strap sewer Dr. Wallace [facility] COURSE: Patient admitted to monitored bed to isolation room. Supplemental oxygen provided and titrated to keep pulse oximetry above 92%. Patient initially required nonrebreather mask. HFA provided as needed. Patient received dexamethasone . Patient was not a candidate for remdesivir , given renal function. DVT prophylaxis with Lovenox provided. CRP was trending down. Blood culture revealed E. coli , urine culture revealed E. coli. Bacteremia was most likely due to UTI. Antibiotic provided as per ID specialist recommendation. Leukocytosis resolved. Patient was followed-up with chest x-ray. As patient clinically improved , she was able to be weaned from nonrebreather mask to oxygen via nasal cannula and eventually to room air. Volumes and renal parameters were closely monitored, electrolytes corrected as needed , and nephrotoxic's were avoided . Creatinine down to 1.7 from initial 2.9. Acute kidney injury resolved . Renal ultrasound was negative. Stool for C. difficile was negative. Troponin trended down to nearly normal. Elevated troponin was most likely due to demand ischemia brought by infectious p rocess and Covid. Fishing Vessel Operator followed. Echocardiogram revealed preserved ejection fraction 65%. Severely elevated left atrial pressure grade 3, mild pulmonary hypertension. Antiplatelet therapy with aspirin, beta-blockage and nitrate provided. Patient remained in atrial fibrillation, rate was controlled with beta-idalia. Coumadin was on hold given persistent coagulopathy . Patient received vitamin K x1. On the day of discharge INR 3.0. Coumadin restarted per pharmacy. Patient will need close monitoring of INR at the facility to keep it in the therapeutic range and avoid further coagulopathy. Blood pressure was managed with beta-idalia and calcium channel idalia. Blood sugar was managed with long-acting Levemir and sliding scale insulin as needed. Diabetic diet and diabetic teaching provided. Supportive care provided. Patient clinically stabilized and was ready for discharge. No need for isolation given more than 10 days from initial diagnosis. FINAL DIAGNOSES: Covid pneumonia Acute hypoxemic respiratory failure, initially requiring nonrebreather mask - resolved Sepsis with bacteremia E. coli bacteremia due to UTI E. coli UTI Acute renal failure on chronic kidney disease Electrolyte imbalance Chronic atrial fibrillation with chronic anticoagulation Coagulopathy NSTEMI , most likely secondary to demand ischemia Chronic diastolic CHF with pEF Chronic lymphedema bilateral lower extremity Hypertension Diabetes mellitus Morbid obesity DISCHARGE MEDICATIONS: See Medication Reconciliation list. DISCHARGE INSTRUCTIONS: Patient was discharged to the correction facility. Follow up with medical doctor at the facility. I have been assigned to dictate discharge summary for this account. Edilma Atkins NP May 14, 2020 14:37
== END 2020-05-11 13:45 | DRG 871 ==
LOC: EDBD 08:54 → EMR 09:20 → 2W 10:33 → EDBEDREQ 15:09 → 2W 04-30 09:30 → 2E 04-30 20:23
DX: A41.51 Sepsis due to Escherichia coli [E. coli] (principal); U07.1 COVID-19; J96.01 Acute respiratory failure with hypoxia; I21.A1 Myocardial infarction type 2; J12.82 Pneumonia due to coronavirus disease 2019; I48.21 Permanent atrial fibrillation; Z68.43 Body mass index [BMI] 50.0-59.9, adult; N17.9 Acute kidney failure, unspecified; N39.0 Urinary tract infection, site not specified; D68.9 Coagulation defect, unspecified; I48.20 Chronic atrial fibrillation, unspecified; I13.0 Hypertensive heart and chronic kidney disease with heart failure and stage 1 through stage 4 chronic kidney disease, or unspecified chronic kidney disease; I50.32 Chronic diastolic (congestive) heart failure; E66.01 Morbid (severe) obesity due to excess calories; Z86.718 Personal history of other venous thrombosis and embolism; E11.22 Type 2 diabetes mellitus with diabetic chronic kidney disease; N18.9 Chronic kidney disease, unspecified; Z79.01 Long term (current) use of anticoagulants; I25.10 Atherosclerotic heart disease of native coronary artery without angina pectoris; I25.2 Old myocardial infarction; E03.9 Hypothyroidism, unspecified; M06.9 Rheumatoid arthritis, unspecified; Z88.6 Allergy status to analgesic agent; Z79.84 Long term (current) use of oral hypoglycemic drugs; D63.1 Anemia in chronic kidney disease; I89.0 Lymphedema, not elsewhere classified; E78.5 Hyperlipidemia, unspecified
CPT/HCPCS: 36415; 71045; 74018; 76770; 80048; 80053; 80061; 80076; 81001; 81003; 82043; 82140; 82306; 82550; 82607; 82728; 82746; 82803; 82962; 82977; 83036; 83540; 83550; 83605; 83615; 83690; 83735; 83880; 83935; 84100; 84300; 84443; 84484; 84550; 85007; 85025; 85379; 85610; 85651; 85730; 86140; 86710; 87040; 87081; 87086; 87181; 87324; 89050; 93005; 93306; 96361; 96365; 96367; 96375; 99291; 99292; J1815; J2405; J7030; J8499; S5561; U0002